=== PATIENT | male | born 1950 | race Caucasian/White ===

== ENCOUNTER → 2018-05-20 07:02 | Outpatient (CLI) | payer MEDICARE, SELFPAY ==
[2018-05-20 10:57] LABS: Absolute Lymphocyte Count 1.84 X10^3/ul (0.83-4.51); Absolute Neutrophil Count 4.6 X10^3/uL (2.0-7.7); Basophil# 0.08 X10^3/uL; Basophil% 1.1 % (0-1); Eosinophil# 0.46 X10^3/uL; Hematocrit 46.5 % (40-54); Hemoglobin 15.1 g/dl (13.0-16.5); Lymphocyte # 1.84 X10^3/ul (4.0); Lymphocyte % 24.2 % (19-41); Mean Corp Hgb Conc 32.5 g/gl (32-36); Mean Corpuscular Hgb 28.9 pg (27.0-32.0); Mean Corpuscular Volume 88.9 fL (80-94); Mean Platelet Vol. 10.2 fl (6.2-12.0); Monocyte# 0.59 X10^3/uL; Monocyte% 7.8 % (0-10); Neutrophil # 4.63 X10^3/uL (2.7-7.7); Neutrophil % 60.8 % (47-70); POSITIVE COUNT NO; POSITIVE DIFFERENTIAL NO; POSITIVE MORPHOLOGY NO; Platelet Count 295 K/mm3 (150-450); RBC Distribution Width CV 12.5 % (11.6-14.6); RBC Distribution Width SD 40.1 fl (35.1-43.9); Red Blood Count 5.23 M/mm3 (4.6-6.2); White Blood Count 7.6 K/mm3 (4.4-11.0)
[2018-05-20 11:08] LABS: Anion Gap 8 (5-15); BUN 21 mg/dL (7-18); BUN/Creat Ratio 17.9 RATIO (10-20); Chloride 105 mmol/L (98-107); Creatinine, Serum 1.17 mg/dL (0.70-1.30); EST Glomerular Filtration Rate 66 mL/min (>60); Est Glom Filt Rate - Afr Amer 80 mL/min (>60); Glucose 94 mg/dL (74-106); PSA,Total - Annual Screen 0.67 ng/mL (0.00-4.00); Sodium Level 141 mmol/L (136-145)
--- OUTSIDE RECORDS SUMMARY | 2018-07-06 02:24 | XMS RPT_ITS ---
:1950 Author Organization OHIP Care Team Providers Name Role Phone Michelet Chang Attending Unavailable Michelet Chang Referring Unavailable Michelet Chang Primary Care Unavailable PROBLEMS PROBLEMS DATE TYPE CONDITION / CODE ATTENDING STATUS SOURCE 06/18/2018 Unknown I10 - Essential Michelet Chang Active [facility] (primary) [facility] hypertension / Hospital I10(ICD-10) Repository PROCEDURES PROCEDURES No Procedure Records FoundRESULTS RESULTS CBC W/DIFF, AUTOMATED Collected: 05/20/2018 Status: F Source: ERICK 7:15 AM [facility] REPOSITORY Order Comment: Order Date: 11/24/17 Order Info: 0184-1 - CBCD TYPE CODE TESTS RESULT OUT OF RANGE REFERENCE UNITS LAB L100.1000 4.4-11.0 K/mm3 Normal WBC 7.6 LAB L100.1200 4.6-6.2 M/mm3 Normal RBC 5.23 LAB L100.1300 13.0-16.5 g/dl Normal HGB 15.1 LAB L100.1400 40-54 % Normal HCT 46.5 LAB L100.1500 80-94 fL Normal MCV 88.9 LAB L100.1600 27.0-32.0 pg Normal MCH 28.9 LAB L100.1700 32-36 g/gl Normal MCHC 32.5 LAB L100.1810 11.6-14.6 % Normal RDW CV 12.5 LAB L100.1820 35.1-43.9 fl Normal RDW SD 40.1 LAB L100.1900 150-450 K/mm3 Normal PLT 295 LAB L100.2000 6.2-12.0 fl Normal MPV 10.2 LAB L100.2100 47-70 % Normal NEUT% 60.8 LAB L100.2200 19-41 % Normal LY% 24.2 LAB L100.2300 0-10 % Normal MONO% 7.8 LAB L100.2400 0-5 % High EO% 6.0 LAB L100.2500 0-1 % High BASO% 1.1 LAB L100.2550 0.0-0.9 % Normal IM GRAN % 0.100 Result Comment: IG% - Immature Granulocytes (promyelocytes, myelocytes and metamyelocytes) > 1% indicates that a LEFT SHIFT is Present. LAB L100.2620 2.0-7.7 X10 3/uL Normal Absolute Neut 4.6 LAB L100.2720 0.83-4.51 X10 3/ul Normal Absolute Lymph 1.84 Performed By: #### L100.0100, L500.2500, L501.9910 #### [facility] [address] [place], [address] BASIC METABOLIC Collected: 05/20/2018 Status: F Source: ERICK PROFILE (BMP) 7:15 AM [facility] REPOSITORY Order Comment: Order Date: 11/24/17 Order Info: [id number] - BMP Order Info: 2857-1 - PSA TYPE CODE TESTS RESULT OUT OF RANGE REFERENCE UNITS LAB L501.0100 74-106 mg/dL Normal GLU 94 Result Comment: Please note revised GLUCOSE reference range effective 2017. LAB L501.1000 7-18 mg/dL High BUN 21 LAB L501.1100 0.70-1.30 mg/dL Normal CREAT,SERUM 1.17 Result Comment: The validity of the calculated GFR AND GFRAA in patients over 70 years has not been determined. Clinical correlation is essential. LAB L501.1110 >60 mL/min Normal EST GFR 66 Result Comment: Non- GFR Calc LAB L501.1115 >60 mL/min Normal EST GFR - AA 80 Result Comment: GFR Calc LAB L501.1300 10-20 RATIO Normal BUN/CRE 17.9 LAB L501.2200 8.5-10.1 mg/dL CA Normal 9.0 LAB L501.5300 136-145 mmol/L NA Normal 141 LAB L501.5600 3.5-5.1 mmol/L K Normal 4.0 LAB L501.5900 98-107 mmol/L CL Normal 105 LAB L501.6100 21.0-32.0 mmol/L Normal CO2 28.0 LAB L501.6200 5-15 Normal GAP 8 Performed By: #### L100.0100, L500.2500, L501.9910 #### [facility] [address] [place], [address] PSA,TOTAL - ANNUAL Collected: 05/20/2018 Status: F Source: ERICK SCREEN 7:15 AM [facility] REPOSITORY Order Comment: Order Date: 11/24/17 Order Info: [id number] - BMP Order Info: 2857-1 - PSA TYPE CODE TESTS RESULT OUT OF RANGE REFERENCE UNITS LAB L501.9910 0.00-4.00 ng/mL Normal PSA,TOT 0.67 SCREEN Result Comment: This test was performed using the TPSA assay method for the [employer] chemistry system. Values obtained with different assay methods cannot be used interchangably. When changing PSA assays in the course of monitoring a patient, additional sequential testing should be carried out to confirm baseline values. Performed By: #### L100.0100, L500.2500, L501.9910 #### [facility] [address] [place], [address] ALLERGIES ALLERGIES DATE TYPE / CODE NAME / CODE REACTION SEVERITY SOURCE 2016 Drug promethazin Anaphylaxis Unknown [facility] Allergy/4160 [id number] Hospital 06597(SNOMED 9(RXNORM) Repository CT) ENCOUNTERS ENCOUNTERS ADMIT/DISCHARGE ACCOUNT ADMITTING ENCOUNTER LOCATION SOURCE NUMBER CLASS 05/20/2018 [id number] Ambulatory [facility] 8 [facility] ing:MTLAB Repository PAYERS PAYERS ENCOUNTER GUARANTOR PAYER SUBSCRIBER SOURCE 05/20/2018 KRISTIN Drummond Primary KRISTIN Drummond Erick [id number] S Insurance:MEDICARE [facility] [id number] Number: Repository [id number]: [phone] [id number] [phone] () Date:2018-05-20 05/20/2018 Secondary NOT GIVENUNK Erick Insurance:SELF PAY [facility] Number: Effective Repository Date:2018-05-20
== END ==
PROVIDERS: Family Provider Family Medicine; PCP Family Medicine; Referring Provider Family Medicine; Visit Provider Family Medicine
DX: I10 Essential (primary) hypertension (principal); Z12.5 Encounter for screening for malignant neoplasm of prostate
CPT/HCPCS: 36415; 80048; 84153; 85025; G0103

== ENCOUNTER → 2020-01-13 07:28 | Outpatient (CLI) | payer MEDICARE, SELFPAY ==
[2016-03-08 18:17] VITALS: BMI 32.8
[2020-01-13 10:30] LABS: Cholesterol 172 mg/dL (200); High Density Lipoprotein 53 mg/dL; Triglycerides 182 mg/dL; Very Low Density Lipoprotein 36 mg/dL (5-40)
== END ==
PROVIDERS: PCP Family Medicine; Referring Provider Family Medicine; Visit Provider Family Medicine
DX: I10 Essential (primary) hypertension (principal)
CPT/HCPCS: 36415; 80061

== ENCOUNTER → 2020-01-18 09:25 | Outpatient (CLI) | payer MEDICARE, SELFPAY ==
[2016-03-08 18:17] VITALS: BMI 32.8
[2020-01-18 12:19] LABS: Absolute Lymphocyte Count 1.47 X10^3/uL (0.83-4.51); Absolute Neutrophil Count 4.7 X10^3/uL (2.0-7.7); Basophil% 1.4 % (0-1); Eosinophil# 0.17 X10^3/uL; Eosinophils% 2.3 % (0-5); Hematocrit 46.8 % (40-54); Hemoglobin 14.6 g/dL (13.0-16.5); Lymphocyte # 1.47 X10^3/ul (4.0); Lymphocyte % 20.1 % (19-41); Mean Corp Hgb Conc 31.2 g/dL (32-36); Mean Corpuscular Hgb 27.9 pg (27.0-32.0); Mean Corpuscular Volume 89.5 fL (80-94); Mean Platelet Vol. 11.4 fl (6.2-12.0); NRBC Flagged by Analyzer 0 % (0-5); Neutrophil # 4.74 X10^3/uL (2.7-7.7); Neutrophil % 64.9 % (47-70); Platelet Count 286 K/mm3 (150-450); RBC Distribution Width SD 42.9 fl (35.1-43.9); Red Blood Count 5.23 M/mm3 (4.6-6.2); White Blood Count 7.3 K/mm3 (4.4-11.0)
[2020-01-18 12:43] LABS: ALB/GLOB Ratio 0.9 RATIO (0.9-2.4); AST(SGOT) 20 U/L (15-37); Alanine Aminotransfer ALT/SGPT 28 U/L (16-61); Albumin, Serum 3.7 g/dL (3.2-5.0); Alkaline Phosphatase 72 U/L (45-117); Anion Gap 8 (5-15); BUN 23 mg/dL (7-18); BUN/Creat Ratio 20.9 RATIO (10-20); Calcium,Total 8.8 mg/dL (8.5-10.1); Chloride 104 mmol/L (98-107); EST Glomerular Filtration Rate 71 mL/min (>60); Est Glom Filt Rate - Afr Amer 86 mL/min (>60); Globulin 3.9 g/dL (2.2-4.2); Glucose 106 mg/dL (74-106); PSA,Total - Annual Screen 0.76 ng/mL (0.00-4.00); Potassium 3.8 mmol/L (3.5-5.1); Protein, Total 7.6 g/dL (6.4-8.2); Sodium Level 138 mmol/L (136-145)
== END ==
PROVIDERS: PCP Family Medicine; Visit Provider Family Medicine
DX: I10 Essential (primary) hypertension (principal); Z12.5 Encounter for screening for malignant neoplasm of prostate
CPT/HCPCS: 36415; 80053; 84153; 85025; G0103

== ENCOUNTER 2020-02-11 14:28 | Emergency (ER) | payer MEDICARE, SELFPAY ==
[2020-02-11] VITALS (9 sets, daily range): BP systolic 151–173; BP diastolic 90–127; PULSE 94–102; RESP 14–26; TEMP 36.4; O2SAT 95–99; BMI 31.6
--- NOTE | 2020-02-11 14:54 | RAD_ITS ---
STUDY: X-RAY - LEFT SHOULDER REASON FOR EXAM: Male, 69 years old. FALL, PAIN, DISLOCATION TECHNIQUE: 2 view(s) of the shoulder. COMPARISON: None. FINDINGS: Complete anterior dislocation of the left shoulder without acute fracture deformity. 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 Normal acromion. Normal humeral head and visualized proximal humerus. The soft tissue structures are unremarkable. Normal visualized pulmonary apex. RAD/Shoulder min 2 Views IMPRESSION: Complete anterior dislocation of the left glenohumeral joint without fracture deformity. Electronically Signed: Odalys Grimm MD at 16:07 EDT , Service support ,
--- NOTE | 2020-02-11 14:55 | ED.DCSUM_ITS ---
History of Present Illness Chief Complaint: Fall Informant: Patient Onset: Today Current Severity: Mild Maximum Severity: Moderate Narrative: Presents with left shoulder injury after a fall. Patient was standing on a [employer] tractor tire, 3 to 4 feet off the ground. When he went to step onto the ladder it tipped and patient fell onto his left shoulder. Patient presents with signs of left shoulder dislocation. He denies any prior shoulder injuries or surgeries. He is right-hand dominant. He denies paresthesias. Patient denies any other injury from his fall. He denies head or neck pain. No loss of consciousness. He is not on anticoagulants. - Past Medical History (1) Hypertension Status: Chronic Past Medical History - Allergies and Home Meds Allergies/Adverse Reactions: Allergies promethazine [From Phenergan] Allergy (Verified 02/11/20 14:36) Anaphylaxis Primary Care Physician: Michelet Heath MD [Primary Care Provider] - Prior records reviewed: Yes Lives: Spouse/ Significant Other Smoking Status: Never smoker Review of Systems General: Denies: Chills, Fever Eyes: Denies: Visual changes - bilaterally ENT: Denies: Bilateral ear pain Cardiovascular: Denies: Chest pain Respiratory: Denies: Dyspnea, Cough Gastrointestinal: Denies: Abdominal pain, Nausea, Vomiting, Diarrhea Musculoskeletal: Reports: Extremity Pain Neurological: Denies: Headache, Parasthesia Hematologic: Denies: Easy bruising, Easy bleeding Allergy: Denies: Uticaria Physical Exam Vital Signs/Narrative: Vital Signs Temp Pulse Resp BP Pulse Ox 02/11/20 14:37 95 02/11/20 14:29 97.5 F L 95 18 160/100 H 95 Inital Vital Signs reviewed: Yes General: Well nourished, Well developed Head: Normocephalic ENT: Moist mucous membranes Neck: Supple, - - No C-spine tenderness. Cardiovascular: Regular rate, Regular rhythm Respiratory: No distress, CTA bilaterally Abdomen: Soft, Nontender Extremities: - - Deformity at left shoulder consistent with shoulder dislocation. Strong distal pulses noted. Patient able to wiggle fingers. Skin: Normal color Neurological: Alert, Oriented x3 Psychological: Normal affect Diagnostic/Tx/Re-eval - Medical Decision Making Patient does have evidence of left shoulder dislocation on x-ray. Patient is consented for procedural sedation. He is placed on environmental monitoring technician and nasal cannula oxygen. 50 mL's of propofol were given IV. Patient received good sedation. Left shoulder was reduced with traction countertraction mechanism. Following reduction patient has good distal pulses and can wiggle fingers. Patient is placed in sling with Rob wrap. Repeat x-ray reveals good position of the proximal humerus. On repeat evaluation patient is awake, alert, and comfortable with discharge to home. He will be given a prescription for Percocet to use as needed for pain. He has seen [facility] in the past and will follow up with them. ED Disposition - Plan for ED Patient: Disposition: Home or Assisted Living Diagnosis: Dislocation of left shoulder joint Instructions: ED Dislocation Shoulder Redu Prescriptions: Oxycodone HCl/Acetaminophen [Percocet 5/325] 1 tablet PO Q6H PRN PRN 3 Days #12 tablet PRN Reason: Pain Transmission Status: Sent to [facility] Referrals: Terry Urias DO [STAFF PHYSICIAN] - 1 Week
[2020-02-11] MEDS: Ondansetron 4 MG/2 ML Vial IV (15:13)
[2020-02-11] MEDS: Morphine 4 MG/ML Syringe IV (15:14)
[2020-02-11] MEDS: Propofol 200 MG/20 ML Vial IV BOLUS (16:31)
--- NOTE | 2020-02-11 16:55 | RAD_ITS ---
STUDY: X-RAY - LEFT SHOULDER REASON FOR EXAM: Male, 69 years old. post reduction of shoulder dislocation TECHNIQUE: 2 view(s) of the shoulder. COMPARISON: Prior left shoulder radiographs of 02/11/2020 at 3:36 PM. FINDINGS: The left glenohumeral joint is reduced. 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 Normal acromion. Normal humeral head and visualized proximal humerus. The soft tissue structures are unremarkable. Normal visualized pulmonary apex. RAD/Shoulder min 2 Views IMPRESSION: Anatomic reduction of the left glenohumeral joint without fracture deformity. Electronically Signed: Odalys Grimm MD at 17:13 EDT , Service support ,
== END 2020-02-11 18:03 | disposition home or self-care (01) ==
PROVIDERS: Emergency Provider Emergency Medicine; PCP Family Medicine
DX: S43.005A Unspecified dislocation of left shoulder joint, initial encounter (principal); W19.XXXA Unspecified fall, initial encounter
CPT/HCPCS: 73030; 96374; 96375; 99152; 99285; J7030; A4216; J2405

== ENCOUNTER 2020-11-04 08:29 | Emergency (ER) | payer MEDICARE, SELFPAY ==
[2020-09-14 07:02] VITALS: BMI 31.6
[2020-11-04 08:29] VITALS: BP 198/122; PULSE 78; RESP 15; TEMP 36.3; O2SAT 97; BMI 32.2
--- NOTE | 2020-11-04 08:42 | EX.ED.DYSGE1 ---
HPI History of Present Illness Chief Complaint: Hypertension Detail of Chief Complaint: Elevated blood pressure for the last 2 days Informant: patient Narrative Narrative: Patient states that over the last 2 days has had elevated blood pressures with systolics in the 160s and 170s. Patient states that 2 days ago he had cataract surgery. Patient's systolic normally in the 130s to 140s. He called his primary care physician who told him to just monitor the blood pressures and if they worsen to come to the emergency department. Patient denies headache, chest pain, or shortness of breath. He denies recent illness. Patient had a recent negative Covid test and has been vaccinated against COVID-19. Patient has been on losartan 50 mg daily for many years. Prior similar symptoms: No PFSH PFSH Medical History (Updated 11/04/20 @ 10:[address] August Sheth, DO) Hypertension Home Medications losartan 50 mg PO DAILY 03/08/16 [History Last Taken 11/03/20] isosorbide mononitrate 30 mg PO DAILY #30 tab 11/04/20 [Rx Last Taken Unknown] Allergy/AdvReac Type Severity Reaction Status Date / Time promethazine [From Phenergan] Allergy Anaphylaxis Verified 11/04/20 08:30 Surgical History History of cholecystectomy History of repair of hiatal hernia Social History (Updated 09/14/20 @ 07:23 by Burton TOMLINSON, PA) Smoking Status: Never smoker ROS ROS ED Constitutional Constitutional ED: Reports systems reviewed and no addt'l complaints, except as documented; Denies body ache(s), change in weight or chills Eyes Eyes: Denies acute decrease in peripheral vision, change in vision, double vision or loss of vision ENT ENT ED: Reports none; Denies ear pain, lip swelling, loss taste/smell, neck pain, otalgia or sore throat Cardiovascular Cardiovascular: Reports none; Denies abdominal pain, chest pain with activity, leg edema, lightheadedness, palpitations, rapid heart rate or syncope Respiratory/Chest Respiratory/Chest: Reports none; Denies change in mental status, dry cough, dyspnea, hemoptysis, shortness of breath at rest or shortness of breath with exertion Gastrointestinal Gastrointestinal: Reports none; Denies abdominal pain, change in stool character, diarrhea, hematemesis, hematochezia, melena, rectal bleeding or vomiting Genitourinary Genitourinary ED: Reports none; Denies abdominal discomfort, anuria, dysuria, genital pain or polyuria Musculoskeletal Musculoskeletal: Reports none; Denies arthralgias, back pain, difficulty walking, extremity pain, muscle weakness or myalgias Integumentary Reports none; Denies abscess or rash Neurologic Neurologic: Reports none; Denies abnormal gait, confusion, focal weakness, frequent falls, headache(s), loss of vision, numbness, paresthesias, radicular pain, vertigo or weakness Psychiatric Psychiatric: Reports systems reviewed and no addt'l complaints, except as documented and none; Denies behavioral changes, confusion, difficulty concentrating, hallucinations, suicidal ideation, tactile hallucinations or visual hallucinations Endocrine Endocrinology: Denies none, cold intolerance, excessive sweating, fatigue or heat intolerance Hematologic/Lymphatic Hematologic/Lymphatic: Reports none; Denies anemia, easy bleeding or easy bruising Allergic/Immunologic Allergic/Immunologic ED: Denies as per HPI, none, lip swelling, mouth swelling, throat swelling, tongue swelling or hives EXAM Physical Exam Const Vital Signs: 11/04/20 08:29 11/04/20 08:47 Temperature 97.4 F L Temperature Source Temporal Pulse Rate 78 84 Respiratory Rate 15 17 Respiratory Effort Normal Non-Labored Respiratory Pattern Normal Blood Pressure 198/122 H 198/111 H Blood Pressure Mean 147 140 Pulse Ox 97 Oxygen Delivery Method Room Air Room Air Positive well nourished and well developed General Appearance ED: well developed and NAD HEENT Reports TM's clear and moist mucous membranes normocephalic and atraumatic; Negative for trauma or tenderness Tympanic Membrane ED: Yes TM's clear Eyes PERRL and EOMs intact bilaterally General Eye ED: Negative for pale conjunctiva or scleral icterus Neck no lymphadenopathy, supple and no JVD General: Negative for tenderness Chest Wall inspection of chest normal and palpation of chest normal Chest: Negative for tenderness Resp normal respiratory effort and clear to auscultation bilaterally Effort and Inspection: Negative for respiratory distress or pain with movement Auscultation: Negative for rhonchi, wheezes or diminished lung sounds Cardio regular rate, regular rhythm, S1 normal heart sound, S2 normal heart sound and no murmurs Peripheral Pulses: pulses 2+ throughout GI normal to inspection, nondistended, normoactive bowel sounds, soft to palpation, non-tender, non-distended and no masses Back/Spine no CVA tenderness and no thoracic nor lumbar tenderness Extremity normal to inspection General Extremety ED: Negative for edema General Extremity: Negative for edema Neuro oriented x3, CN's II-XII intact bilaterally, no sensory deficits noted and gait normal Sensorium / Orientation: awake, alert, oriented to person, oriented to place and oriented to time Motor Exam: strength 5/5 throughout and strength abnormal Psych mental status grossly normal Skin no rashes or lesions noted and no wounds MDM MDM Lab Data Labs: Laboratory Results - last 24 hr 11/04/20 11/04/20 08:44 08:44 WBC 7.4 RBC 5.38 Hgb 15.2 Hct 47.6 MCV 88.5 MCH 28.3 MCHC 31.9 L RDW Std Deviation 42.0 RDW Coeff of Zoila 13.0 Plt Count 302 MPV 9.6 Immature Gran % (Auto) 0.300 Neut % (Auto) 63.2 Lymph % (Auto) 23.2 [place] % (Auto) 9.7 Eos % (Auto) 2.4 Baso % (Auto) 1.2 H Absolute Neuts (auto) 4.7 Absolute Lymphs (auto) 1.72 Nucleated RBC % 0 Sodium 139 Potassium 4.2 Chloride 106 Carbon Dioxide 29.0 Anion Gap 4 L BUN 20 H Creatinine 1.14 Estim Creat Clear Calc 64.04 Est GFR (MDRD) Af Amer 82 Est GFR (MDRD) Non-Af 68 BUN/Creatinine Ratio 17.5 Glucose 117 H Calcium 8.9 Troponin I < 0.015 Radiography Diagnostic Testing: Radiology Impression Chest X-Ray 11/04/20 08:50 IMPRESSION: No active pulmonary disease. Electronically Signed: Jorge Taylor MD at 9:09 EDT Tel , Service support , 1 view chest x-ray obtained showed no evidence of acute disease process as interpreted by myself. EKG Initial EKG: Comments: Sinus rhythm with a ventricular rate of 78 bpm with a right bundle branch block and minimal criteria for LVH. Discharge Plan Triage Chief Complaint: Hypertension ED Provider: August Sheth Dx/Rx/DC Orders Clinical Impression: Hypertension Instructions: ED Hypertension, Established Prescriptions: New isosorbide mononitrate 30 mg tablet extended release 24 hr 30 mg PO DAILY Qty: 30 RF: 0 No Action losartan 50 MG tablet 50 mg PO DAILY RF: 0 Primary Care Provider: Michelet Heath Referrals: Michelet Heath MD [Primary Care Provider] - 3-5 Days Disposition Disposition: Home, self care
[2020-11-04 08:47] VITALS: BP 198/111; PULSE 84; RESP 17
--- NOTE | 2020-11-04 08:50 | RAD_ITS ---
STUDY: X-RAY CHEST REASON FOR EXAM: Male, 70 years old. Hypertension TECHNIQUE: Single AP portable view of the chest. COMPARISON: Prior comparison studies are not available for review at this time. FINDINGS: The lungs are clear and expanded. There is no demonstrated pleural abnormality. There is borderline cardiomegaly. Normal mediastinum and hector. Normal visualized pulmonary arteries. There is atherosclerotic tortuosity of the aortic arch and descending thoracic aorta. No demonstrated acute osseous changes. There is no demonstrated abnormality of the visualized soft tissue structures of the upper abdomen. RAD/Chest 1 View (Portable) IMPRESSION: No active pulmonary disease. Electronically Signed: Jorge Taylor MD at 9:09 EDT Tel , Service support ,
[2020-11-04 08:57] LABS: Absolute Lymphocyte Count 1.72 X10^3/uL (0.83-4.51); Absolute Neutrophil Count 4.7 X10^3/uL (2.0-7.7); Basophil# 0.09 X10^3/uL; Basophil% 1.2 % (0-1); Eosinophil# 0.18 X10^3/uL; Eosinophils% 2.4 % (0-5); Hematocrit 47.6 % (40-54); Hemoglobin 15.2 g/dL (13.0-16.5); Lymphocyte # 1.72 X10^3/ul (0.83-4.51); Lymphocyte % 23.2 % (19-41); Mean Corp Hgb Conc 31.9 g/dL (32-36); Mean Corpuscular Hgb 28.3 pg (27.0-32.0); Mean Corpuscular Volume 88.5 fL (80-94); Mean Platelet Vol. 9.6 fl (6.2-12.0); Monocyte# 0.72 X10^3/uL; Monocyte% 9.7 % (0-10); NRBC Flagged by Analyzer 0 % (0-5); Neutrophil # 4.67 X10^3/uL (2.7-7.7); Neutrophil % 63.2 % (47-70); Platelet Count 302 K/mm3 (150-450); Red Blood Count 5.38 M/mm3 (4.6-6.2); White Blood Count 7.4 K/mm3 (4.4-11.0)
[2020-11-04] MEDS: hydrALAZINE 20 MG/ML Vial 5 MG IV (09:13)
[2020-11-04 09:17] LABS: Anion Gap 4 (5-15); BUN 20 mg/dL (7-18); BUN/Creat Ratio 17.5 RATIO (10-20); Calcium,Total 8.9 mg/dL (8.5-10.1); Chloride 106 mmol/L (98-107); Creatinine, Serum 1.14 mg/dL (0.70-1.30); EST Glomerular Filtration Rate 68 mL/min (>60); Est Glom Filt Rate - Afr Amer 82 mL/min (>60); Estimated Creatinine Clearance 64.04 ml/min; Glucose 117 mg/dL (74-106); Potassium 4.2 mmol/L (3.5-5.1); Sodium Level 139 mmol/L (136-145)
--- NOTE | 2020-11-04 10:03 | EKG12_ITS ---
Test Reason : Blood Pressure : / mmHG Vent. Rate : 078 BPM Atrial Rate : 078 BPM P-R Int : 172 ms QRS Dur : 144 ms QT Int : 418 ms P-R-T Axes : 007 -15 -12 degrees QTc Int : 476 ms Normal sinus rhythm Right bundle branch block Minimal voltage criteria for LVH, may be normal variant Abnormal ECG Confirmed by PHILLY SANTOS, MIGUEL ([id number]), publishing editor KEERTHI NIX ([id number]) on 11/07/2020 1:46:09 PM Referred By: MARTA Confirmed By:MIGUEL FRAGA MD
[2020-11-04 10:33] VITALS: BP 185/106; PULSE 82; RESP 17; O2SAT 99
== END 2020-11-04 10:34 | disposition home or self-care (01) ==
PROVIDERS: Emergency Provider Emergency Medicine; PCP Family Medicine
DX: I10 Essential (primary) hypertension (principal); Z79.899 Other long term (current) drug therapy
CPT/HCPCS: 71045; 80048; 84484; 85025; 93005; 99284; A4216

== ENCOUNTER → 2021-01-08 07:08 | Outpatient (CLI) | payer MEDICARE, SELFPAY ==
[2021-01-08 10:37] LABS: ALB/GLOB Ratio 0.9 RATIO (0.9-2.4); AST(SGOT) 27 U/L (15-37); Alanine Aminotransfer ALT/SGPT 35 U/L (16-61); Albumin, Serum 3.5 g/dL (3.2-5.0); Alkaline Phosphatase 77 U/L (45-117); Anion Gap 7 (5-15); BUN 21 mg/dL (7-18); BUN/Creat Ratio 18.9 RATIO (10-20); Calcium,Total 8.9 mg/dL (8.5-10.1); Chloride 106 mmol/L (98-107); Cholesterol 169 mg/dL (200); Creatinine, Serum 1.11 mg/dL (0.70-1.30); EST Glomerular Filtration Rate 70 mL/min (>60); Est Glom Filt Rate - Afr Amer 85 mL/min (>60); Globulin 3.9 g/dL (2.2-4.2); Glucose 116 mg/dL (74-106); High Density Lipoprotein 58 mg/dL; Potassium 3.9 mmol/L (3.5-5.1); Protein, Total 7.4 g/dL (6.4-8.2); Sodium Level 138 mmol/L (136-145); Triglycerides 160 mg/dL; Very Low Density Lipoprotein 32 mg/dL (5-40)
== END ==
PROVIDERS: PCP Family Medicine; Referring Provider Family Medicine; Visit Provider Family Medicine
DX: E78.5 Hyperlipidemia, unspecified (principal); Z12.5 Encounter for screening for malignant neoplasm of prostate
CPT/HCPCS: 36415; 80053; 80061

== ENCOUNTER → 2021-02-06 08:32 | Outpatient (CLI) | payer MEDICARE, SELFPAY ==
[2021-02-06 10:40] LABS: PSA,Total - Annual Screen 0.82 ng/mL (0.00-4.00)
[2021-02-06 10:42] LABS: Hemoglobin A1c 5.9 % (3.8-5.6)
== END ==
PROVIDERS: PCP Family Medicine; Referring Provider Family Medicine; Visit Provider Family Medicine
DX: R73.01 Impaired fasting glucose (principal); Z12.5 Encounter for screening for malignant neoplasm of prostate
CPT/HCPCS: 36415; 83036; 84153; G0103

== ENCOUNTER 2021-04-16 06:32 | Inpatient (IN) | payer MEDICARE, SELFPAY ==
[2021-04-16] VITALS (28 sets, daily range): BP systolic 85–145; BP diastolic 58–94; PULSE 87–112; RESP 15–25; TEMP 36.2–36.9; O2SAT 93–98; BMI 33.4; BMI 33.3
--- NOTE | 2021-04-16 06:40 | EKG12_ITS ---
Test Reason : Blood Pressure : / mmHG Vent. Rate : 087 BPM Atrial Rate : 087 BPM P-R Int : 146 ms QRS Dur : 136 ms QT Int : 386 ms P-R-T Axes : 012 -22 -15 degrees QTc Int : 464 ms Normal sinus rhythm Right bundle branch block Abnormal ECG Confirmed by DESHAUN SANTOS, CLAUDIA ([id number]), department editor KEERTHI NIX ([id number]) on 04/18/2021 9:08:55 AM Referred By: EDDIE Confirmed By:CLAUDIA MEADE MD
--- NOTE | 2021-04-16 06:42 | ED.VIS.GI ---
HPI HPI - GI History of Present Illness Chief Complaint: GI Bleed Informant: patient and spouse/S.O. Nausea/Vomiting/Emesis GI Symptom: Positive for Nausea and Vomiting Quality: Positive for Hematemesis Narrative Narrative: Patient is a 71-year-old male with history of bleeding stomach ulcers and hiatal hernia status post Sam fundoplication presenting with abdominal discomfort, nausea and hematemesis. Patient started having upset stomach yesterday evening. He did not sleep well throughout the night. Around 5 AM he started vomiting blood. Patient reports feeling lightheaded. He denies any chest pain or difficulty breathing. He denies any abdominal pain. He was hypotensive for EMS and they reported large volume hematemesis at the scene. Patient is on any blood thinners. He denies taking a daily aspirin or significant ibuprofen use. [facility] Medical History Hypertension Kidney stones Home Medications losartan-hydrochlorothiazide 1 tab PO DAILY 04/16/21 [History Last Taken Unknown] Allergy/AdvReac Type Severity Reaction Status Date / Time promethazine [From Phenergan] Allergy Anaphylaxis Verified 11/04/20 08:30 Surgical History History of cholecystectomy History of repair of hiatal hernia Social History Smoking Status: Never smoker ROS ROS ED Constitutional Constitutional ED: Denies chills or fever(s) Eyes Eyes: Denies blurry vision or loss of vision ENT ENT ED: Denies rhinorrhea or sore throat Cardiovascular Cardiovascular: Denies chest pain or dizziness Respiratory/Chest Respiratory/Chest: Denies cough or dyspnea Gastrointestinal Gastrointestinal: Reports diarrhea, hematemesis, nausea and vomiting; Denies abdominal pain, hematochezia or melena Genitourinary Genitourinary ED: Denies dysuria or hematuria Musculoskeletal Musculoskeletal: Denies arthralgias or myalgias Integumentary Denies rash or wounds Neurologic Neurologic: Denies focal weakness or headache(s) Psychiatric Psychiatric: Denies anxiety or behavioral changes EXAM Physical Exam Const Vital Signs: 04/16/21 06:33 Temperature 97.2 F L Temperature Source Temporal Pulse Rate 97 Respiratory Rate 22 H Blood Pressure 105/69 Blood Pressure Mean 81 Pulse Ox 94 Oxygen Delivery Method Room Air Positive well nourished and well developed General Appearance ED: well developed and pallor HEENT Reports moist mucous membranes HEENT Narrative: Black discoloration to the tongue normocephalic and atraumatic Eyes PERRL and EOMs intact bilaterally General Eye ED: Yes pale conjunctiva Neck no lymphadenopathy and supple Resp normal respiratory effort and clear to auscultation bilaterally Cardio regular rate, regular rhythm and no murmurs GI non-tender and non-distended Auscultation: normoactive bowel sounds Palpation: soft; Negative for pulsatile mass Extremity full ROM General Extremety ED: Negative for edema or tenderness General Extremity: Negative for edema Neuro Sensorium / Orientation: alert, oriented to person, oriented to place and oriented to time Motor Exam: general weakness Psych mental status grossly normal Skin General Skin Exam: pallor Lesions: no lesions Rashes: no rashes MDM MDM MDM Narrative Medical decision making narrative: Patient is evaluated for low blood pressure and hematemesis. On arrival patient is diaphoretic, pale and hypotensive. I suspect he has an acute GI bleed given the history. EMS showed me a picture of his hematemesis which appears to be at least 2 cups. Patient is anemic with a hemoglobin 11.9. Chart review shows his baseline is closer to 15. In addition he has elevated lactate of 3.9. Patient is given 2 L of IV fluid with improvement of his symptoms as well as his blood pressure. He is given IV Protonix bolus and type and cross for 2 units of blood. 1 unit is ordered in the emergency room is suspect he does have an acute bleed. Discussed with JOSTIN Gay on-call, who will evaluate him in the hospital. Patient admitted to the ICU. Patient agreeable to this plan of care. Lab Data Labs: Laboratory Results - last 24 hr 04/16/21 04/16/21 04/16/21 06:40 06:40 06:40 WBC 13.5 H RBC 4.17 L Hgb 11.9 L Hct 37.6 L MCV 90.2 MCH 28.5 MCHC 31.6 L RDW Std Deviation 42.7 RDW Coeff of Zoila 12.9 Plt Count 304 MPV 10.4 Immature Gran % (Auto) 0.400 Neut % (Auto) 77.8 H Lymph % (Auto) 17.2 L [place] % (Auto) 4.0 Eos % (Auto) 0.1 Baso % (Auto) 0.5 Absolute Neuts (auto) 10.5 H Absolute Lymphs (auto) 2.31 Nucleated RBC % 0 Sodium 137 Potassium 4.7 Chloride 108 H Carbon Dioxide 23.0 Anion Gap 6 BUN 48 H Creatinine 1.24 Estim Creat Clear Calc 59.88 Est GFR (MDRD) Af Amer 74 Est GFR (MDRD) Non-Af 61 BUN/Creatinine Ratio 38.7 H Glucose 223 H Lactic Acid 3.9 H* Calcium 8.8 Total Bilirubin 0.70 AST 20 ALT 32 Alkaline Phosphatase 65 Troponin I High Sens 6 Total Protein 6.3 L Albumin 2.8 L Globulin 3.5 Albumin/Globulin Ratio 0.8 L Lipase 646 H Crossmatch 04/16/21 06:40 WBC RBC Hgb Hct MCV MCH MCHC RDW Std Deviation RDW Coeff of Zoila Plt Count MPV Immature Gran % (Auto) Neut % (Auto) Lymph % (Auto) [place] % (Auto) Eos % (Auto) Baso % (Auto) Absolute Neuts (auto) Absolute Lymphs (auto) Nucleated RBC % Sodium Potassium Chloride Carbon Dioxide Anion Gap BUN Creatinine Estim Creat Clear Calc Est GFR (MDRD) Af Amer Est GFR (MDRD) Non-Af BUN/Creatinine Ratio Glucose Lactic Acid Calcium Total Bilirubin AST ALT Alkaline Phosphatase Troponin I High Sens Total Protein Albumin Globulin Albumin/Globulin Ratio Lipase Crossmatch See Detail Rhythm Strip Rhythm Strip: Sinus Rhythm Rate: 87 Ectopy: None EKG Initial EKG: Attestation: I personally reviewed and interpreted this EKG as follows: Interpretation: Sinus Rhythm Comments: Normal sinus rhythm at a rate of 87 Left axis deviation Normal intervals Right bundle branch block Normal ST segments Critical Care Time Critical Care Time: Yes Critical care time (excluding procedures): 30-74 minutes (42), Discussing w/Patient &/or Family/Material Stress Tester, Discussing w/Consultants and Arranging Admission or Transfer Discharge Plan Triage Chief Complaint: GI Bleed ED Provider: Yeimy Bernstein Dx/Rx/DC Orders Clinical Impression: Acute gastrointestinal bleeding, Hemorrhagic shock Primary Care Provider: Micheelt Trotter Disposition Disposition: [facility]
[2021-04-16] MEDS: 0.9% Normal Saline 1,000 ML 1000 ML IV (06:43)
[2021-04-16] MEDS: Ondansetron 4 MG/2 ML Vial IV (06:46)
[2021-04-16 06:54] LABS: Absolute Lymphocyte Count 2.31 X10^3/uL (0.83-4.51); Absolute Neutrophil Count 10.5 X10^3/uL (2.0-7.7); Basophil# 0.07 X10^3/uL; Basophil% 0.5 % (0-1); Eosinophil# 0.02 X10^3/uL; Eosinophils% 0.1 % (0-5); Hematocrit 37.6 % (40-54); Hemoglobin 11.9 g/dL (13.0-16.5); Lymphocyte # 2.31 X10^3/ul (0.83-4.51); Lymphocyte % 17.2 % (19-41); Mean Corp Hgb Conc 31.6 g/dL (32-36); Mean Corpuscular Hgb 28.5 pg (27.0-32.0); Mean Corpuscular Volume 90.2 fL (80-94); Mean Platelet Vol. 10.4 fl (6.2-12.0); Monocyte# 0.54 X10^3/uL; NRBC Flagged by Analyzer 0 % (0-5); Neutrophil # 10.45 X10^3/uL (2.7-7.7); Neutrophil % 77.8 % (47-70); Platelet Count 304 K/mm3 (150-450); RBC Distribution Width CV 12.9 % (11.6-14.6); RBC Distribution Width SD 42.7 fl (35.1-43.9); Red Blood Count 4.17 M/mm3 (4.6-6.2); White Blood Count 13.5 K/mm3 (4.4-11.0)
[2021-04-16 07:17] LABS: ALB/GLOB Ratio 0.8 RATIO (0.9-2.4); AST(SGOT) 20 U/L (15-37); Alanine Aminotransfer ALT/SGPT 32 U/L (16-61); Albumin, Serum 2.8 g/dL (3.2-5.0); Alkaline Phosphatase 65 U/L (45-117); Anion Gap 6 (5-15); BUN 48 mg/dL (7-18); BUN/Creat Ratio 38.7 RATIO (10-20); Calcium,Total 8.8 mg/dL (8.5-10.1); Chloride 108 mmol/L (98-107); Creatinine, Serum 1.24 mg/dL (0.70-1.30); EST Glomerular Filtration Rate 61 mL/min (>60); Est Glom Filt Rate - Afr Amer 74 mL/min (>60); Estimated Creatinine Clearance 59.88 ml/min; Globulin 3.5 g/dL (2.2-4.2); Glucose 223 mg/dL (74-106); Lipase 646 U/L (73-393); Potassium 4.7 mmol/L (3.5-5.1); Protein, Total 6.3 g/dL (6.4-8.2); Sodium Level 137 mmol/L (136-145); Troponin-I HS 6 pg/mL (3.0-78.0)
[2021-04-16 07:24] LABS: Lactic Acid 3.9 mmol/L (0.4-1.9)
--- NOTE | 2021-04-16 08:13 | NURSING ---
ICU [facility] GI BLEED
--- NOTE | 2021-04-16 08:14 | NURSING ---
ICU 5
[2021-04-16] MEDS: Lactated Ringers 1,000 ML 75 ML IV ×2 (09:42→13:36)
[2021-04-16 09:52] LABS: Hematocrit 35.3 % (40-54)
[2021-04-16 10:48] LABS: Reflex Lactate? Y
[2021-04-16 11:44] LABS: Lactic Acid 2.4 mmol/L (0.4-1.9)
--- NOTE | 2021-04-16 12:10 | EX.PCM.CON.G ---
HPI Consult Data Date of Consult: 04/16/21 HPI Narrative HPI Narrative: KRISTIN LARA, is a 71 M who presents to the ED with worsening abdominal pain and hematemesis. He has a remote history of bleeding gastric ulcers thought to be secondary to NSAIDs. He also has a history of a large hiatal hernia status post Sam fundoplication. He presents with acute onset of abdominal discomfort, nausea and hematemesis. Patient started having upset stomach yesterday evening, but he thought it would go away. He did not sleep well throughout the night. At around 5 AM he started vomiting bright red blood. Patient reports feeling lightheaded. He denies any chest pain or difficulty breathing. He denies any abdominal pain. He was hypotensive for EMS and they reported large volume hematemesis at the scene. Patient is on any blood thinners. He denies taking a daily aspirin or significant ibuprofen use. He has no history of liver disease, thrombocytopenia or bleeding disorders. [facility] Medical History Hypertension Kidney stones Home Medications losartan-hydrochlorothiazide 1 tab PO DAILY 04/16/21 [History Last Taken Unknown] Allergy/AdvReac Type Severity Reaction Status Date / Time promethazine [From Phenergan] Allergy Anaphylaxis Verified 11/04/20 08:30 Surgical History History of cholecystectomy History of repair of hiatal hernia Social History Smoking Status: Never smoker ROS Review of Systems ROS Unobtainable: other Constitutional Constitutional: Denies fatigue, fever(s), poor appetite, weight gain or weight loss ENT HEENT: Denies mouth lesions Cardiovascular Cardiovascular: Denies abdominal bloating, abdominal edema or abdominal pain Respiratory/Chest Respiratory/Chest: Denies change in mental status, change in phlegm color, chest congestion or chest tightness Gastrointestinal Gastrointestinal: Denies belching, bloating, change in bowel habits, change in stool character, chewing difficulty, coffee ground emesis, constipation, cramping, diarrhea, dyspepsia, dysphagia, early satiety, excessive flatus, fecal incontinence, heartburn, hematemesis, hematochezia, hemorrhoids, loose stools, melena, nausea, odynophagia, rectal bleeding, tenesmus, vomiting or weight changes Genitourinary Genitourinary: Denies abdominal discomfort, burning urination or itching Musculoskeletal Musculoskeletal: Reports as per HPI; Denies muscle weakness or myalgias Integumentary Integumentary: Denies jaundice Neurologic Neurologic: Denies lack of coordination or weakness Psychiatric Psychiatric: Denies confusion, depression, memory loss, mood swings, paranoia or suicidal ideation Endocrine Endocrinology: Denies systems reviewed and no addt'l complaints, except as documented Hematologic/Lymphatic Hematologic/Lymphatic: Denies anemia, easy bleeding, easy bruising or lymphadenopathy Allergic/Immunologic Allergic/Immunologic: Denies systems reviewed and no addt'l complaints, except as documented Physical Exam Const alert General Appearance: cooperative Orientation / Consciousness: oriented to person HEENT hearing grossly normal bilaterally Head and Scalp: normal to inspection Face and Sinus: face symmetric Nose: external nose normal Mouth: oral and palatal mucosa normal Eyes conjunctivae normal General Eye: normal appearance of both eyes Neck full ROM General: normal visual inspection Lymph Lymphatic: no lymphadenopathy noted Chest inspection of chest normal and palpation of chest normal Chest: symmetrical chest wall rise Resp normal respiratory effort Effort and Inspection: able to speak in complete sentences Cardio regular rate GI non-distended Percussion: normal to percussion Rectal Exam: deferred Neuro Speech: speech normal Gait (Neuro): normal gait Lab / Micro Data Result Diagrams: 04/16/21 09:40 04/16/21 06:40 Labs: Laboratory Results - last 24 hr 04/16/21 06:40: WBC 13.5 H, RBC 4.17 L, Hgb 11.9 L, Hct 37.6 L, MCV 90.2, MCH 28.5, MCHC 31.6 L, RDW Std Deviation 42.7, RDW Coeff of Zoila 12.9, Plt Count 304, MPV 10.4, Immature Gran % (Auto) 0.400, Neut % (Auto) 77.8 H, Lymph % (Auto) 17.2 L, [place] % (Auto) 4.0, Eos % (Auto) 0.1, Baso % (Auto) 0.5, Absolute Neuts (auto) 10.5 H, Absolute Lymphs (auto) 2.31, Nucleated RBC % 0 04/16/21 06:40: Sodium 137, Potassium 4.7, Chloride 108 H, Carbon Dioxide 23.0, Anion Gap 6, BUN 48 H, Creatinine 1.24, Estim Creat Clear Calc 59.88, Est GFR (MDRD) Af Amer 74, Est GFR (MDRD) Non-Af 61, BUN/Creatinine Ratio 38.7 H, Glucose 223 H, Calcium 8.8, Total Bilirubin 0.70, AST 20, ALT 32, Alkaline Phosphatase 65, Troponin I High Sens 6, Total Protein 6.3 L, Albumin 2.8 L, Globulin 3.5, Albumin/Globulin Ratio 0.8 L, Lipase 646 H 04/16/21 06:40: Lactic Acid 3.9 H* 04/16/21 06:40: Blood Type A POSITIVE, Antibody Screen NEGATIVE, Crossmatch See Detail 04/16/21 09:40: Hgb 11.0 L, Hct 35.3 L 04/16/21 11:00: Lactic Acid 2.4 H* Micro: Microbiology 04/16/21 06:50 Stool Stool Occult Blood (CHEO) - Final Occult Blood Positive Rhythm Strip Rhythm Strip: Sinus Rhythm Rate: 87 Ectopy: None Assessment & Plan Assessment/Plan (1) Acute gastrointestinal bleeding: PLAN: 71-year-old with upper GI bleed. Differential diagnosis does include a dehiscence of his previous Sam fundoplication, Iman-Cm tear, gastric ulcer, peptic ulcer disease, AVM. He will undergo upper endoscopy. He was explained alternatives, risk, benefits including not withstanding bleeding, infection, sepsis, perforation, need for emergency or . He will have an ASA 1. Charges/Coding Visit Charges Inpatient E&M: 36718 Init Hosp L2
--- NOTE | 2021-04-16 12:44 | OP.EGD_ITS ---
Patient Name: Alek Blanchard Procedure Date: 04/16/2021 12:13 PM Date of : 1950 Age: 71 Procedure: Upper GI endoscopy Indications: Coffee-ground emesis Providers: Burt Vaughn DO Medicines: Propofol per Anesthesia Patient Profile: This is a 71 year old male. Refer to note in patient chart for documentation of history and physical. Patient has symptoms of acute vomiting. The symptoms first began ,. He is status post EGD for treatment of bleeding in the distant past. Complications: No immediate complications. Procedure: Pre-Anesthesia Assessment: - Prior to the procedure, a History and Physical was performed, and patient medications and allergies were reviewed. The patient is competent. The risks and benefits of the procedure and the sedation options and risks were discussed with the patient. All questions were answered and informed consent was obtained. Patient identification and proposed procedure were verified by the physician in the pre-procedure area. Mental Status Examination: alert and oriented. Airway Examination: normal oropharyngeal airway and neck mobility. Respiratory Examination: clear to auscultation. CV Examination: normal. Prophylactic Antibiotics: The patient does not require prophylactic antibiotics. Prior Anticoagulants: The patient has taken no previous anticoagulant or antiplatelet agents. ASA Grade Assessment: II - A patient with mild systemic disease. After reviewing the risks and benefits, the patient was deemed in satisfactory condition to undergo the procedure. The anesthesia plan was to use moderate sedation / analgesia (conscious sedation). Immediately prior to administration of medications, the patient was re-assessed for adequacy to receive sedatives. The heart rate, respiratory rate, oxygen saturations, blood pressure, adequacy of pulmonary ventilation, and response to care were monitored throughout the procedure. The physical status of the patient was re-assessed after the procedure. After obtaining informed consent, the endoscope was passed under direct vision. Throughout the procedure, the patient's blood pressure, pulse, and oxygen saturations were monitored continuously. The gastroscope was introduced through the mouth, and advanced to the second part of duodenum. The upper GI endoscopy was accomplished without difficulty. The patient tolerated the procedure well. Moderate Sedation: Moderate (conscious) sedation was administered by the endoscopy nurse and supervised by the endoscopist. The patient's oxygen saturation, heart rate, blood pressure and response to care were monitored. Total physician intraservice time was 15 minutes. Scope In: 12:28:01 PM Scope Out: 12:34:19 PM Total Procedure Duration Time 0 hours 6 minutes 18 seconds Findings: Hematin (altered blood/nryevp-rfiuxq-idmz material) was found in the lower third of the esophagus. A large hiatal hernia was present. Hematin (altered blood/bicqxq-puajns-gsqo material) was found in the stomach. The second portion of the duodenum was normal. Impression: - Hematin (altered blood/egpzlt-ieahro-bevm material) in the lower third of the esophagus. - Large hiatal hernia. - Hematin (altered blood/ufszwj-qqsdxz-cexz material) in the stomach. - Normal second portion of the duodenum. - No specimens collected. Recommendation: - Return patient to [facility] for ongoing care. - Continue present medications. Procedure Code(s): --- Professional --- 84303, Esophagogastroduodenoscopy, flexible, transoral; diagnostic, including collection of specimen(s) by brushing or washing, when performed (separate procedure) G0500, Moderate sedation services provided by the same physician or other qualified health resident care associate performing a gastrointestinal endoscopic service that sedation supports, requiring the presence of an independent trained observer to assist in the monitoring of the patient's level of consciousness and physiological status; initial 15 minutes of intra-service time; patient age 5 years or older (additional time may be reported with 12133, as appropriate) CPT copyright 2017 [employer]. All rights reserved. The codes documented in this report are preliminary and upon certified personal finance counselor review may be revised to meet current compliance requirements. Burt Vaughn DO 04/16/2021 12:44:06 PM This report has been signed electronically. Number of Addenda: 1 Note Initiated On: 04/16/2021 12:13 PM Addendum Number: 1 Addendum Date: 02/08/2022 6:19:13 AM MAC was used instead of moderate sedation for this patient. Burt Vaughn DO 02/08/2022 6:19:18 AM This report has been signed electronically.
[2021-04-16 13:37] LABS: Hematocrit 30.9 % (40-54); Hemoglobin 9.8 g/dL (13.0-16.5)
--- NOTE | 2021-04-16 14:34 | HP.PCM.HOS_ITS ---
HPI - General General Date of Admission: 04/16/21 Date of Service: 04/16/21 Chief Complaint: Hematemesis HPI Narrative KRISTIN LARA, is a 71 M who presented to the emergency department at [facility] with a chief complaint of hematemesis. The patient was feeling well up until 1130 last evening when he started to not feel well in general. He fell asleep and woke up at 2 AM and was not feeling well and went out to try to sleep on the couch although he stated that he did not sleep well at all. At approximately 530 this morning he started vomiting blood and the reports it was a decent amount. The patient reports that he has a history of GI bleeds up until 11 years ago when he had a Sam fundoplication done and has had none since. He denies any use of aspirin or any other NSAIDs. He takes no medications other than losartan/HCTZ. He had no further vomiting to her presentation to the emergency department and is feeling improved since he is had a liter of fluids. He was noted to be afebrile but mildly tachycardic and his blood pressures were on the low normal side when compared to previous admission s. His respiratory rate and pulse oximetry were within normal limits. His initial hemoglobin was 11.9 but when compared to previous hemoglobins this is a considerable drop as his baseline appears to be around 15. The emergency department has ordered 1 unit of blood given his drop. They did discuss the case with Dr. Vaughn from gastroenterology and he noted that he would evaluate the patient after admission. His initial lactic acid was 3.9 and his BUN was disproportionately elevated at 48 with a serum creatinine of 1.24. His BUN is approximately double compared to his baseline. His lipase was slightly elevated at 646 but anticipate this is related to his vomiting. He was given a Protonix bolus and IV fluids in the emergency department and we requested evaluate the patient for admission. He will be admitted the ICU. [facility] Medical History (Updated 04/16/21 @ 14:[address] Sara Diallo DO) GI bleed Hypertension Kidney stones Home Medications losartan-hydrochlorothiazide 1 tab PO DAILY 04/16/21 [History Last Taken Unknown] Allergy/AdvReac Type Severity Reaction Status Date / Time promethazine [From Phenergan] Allergy Anaphylaxis Verified 11/04/20 08:30 no significant family history Surgical History History of cholecystectomy History of repair of hiatal hernia Social History (Updated 04/16/21 @ 14:[address] Sara Diallo DO) Smoking Status: Never smoker alcohol intake: never substance use type: does not use ROS Constitutional Constitutional: Denies anorexia, change in weight, chills, fatigue, fever(s), malaise, night sweats, weakness or other Eyes Eyes: Denies blurry vision, change in eye color, change in vision, discharge from eye(s), double vision, erythema, eye pain, loss of vision or other ENT HEENT: Denies abnormal hearing, dysphagia, ear pain, epistaxis, headache(s), hearing loss, nasal congestion, nasal discharge, post nasal drip, sinus pressure, sore throat or other Cardiovascular Cardiovascular: Denies chest pain, claudication, dyspnea on exertion, edema, lightheadedness, orthopnea, palpitations, paroxysmal nocturnal dyspnea, rapid heart rate, syncope or other Respiratory/Chest Respiratory/Chest: Denies cough, dyspnea, excessive phlegm production, hemoptysis, productive cough, shortness of breath at rest, shortness of breath with exertion, wheezing or other Gastrointestinal Gastrointestinal: Reports hematemesis, nausea and vomiting; Denies abdominal pain, coffee ground emesis, constipation, diarrhea, dyspepsia, hematochezia, loose stools, melena or other Genitourinary Genitourinary: Denies burning urination, difficulty urinating, dysuria, hematuria, nocturia, urinary frequency, urinary hesitancy, urinary incontinence, urinary urgency or other Musculoskeletal Musculoskeletal: Denies arthralgias, back pain, joint pain, joint stiffness, joint swelling, myalgias, neck pain or other Neurologic Neurologic: Denies abnormal gait, abnormal speech, confusion, disequilibrium, dizziness, focal weakness, headache(s), numbness, paresthesias, seizure-like activity, seizures, syncope, tingling, tremor(s) or other Psychiatric Psychiatric: Denies anxiety, depression, homicidal ideation, suicidal ideation or other Endocrine Endocrinology: Denies change in body appearance, cold intolerance, excessive sweating, heat intolerance, polydipsia, polyuria or other Hematologic/Lymphatic Hematologic/Lymphatic: Denies anemia, easy bleeding, easy bruising, lymphadenopathy or other Allergic/Immunologic Allergic/Immunologic: Denies rhinitis, hives, eczemia, asthma or other Vital Signs Vital Signs Vital Signs: 04/16/21 06:33 04/16/21 08:12 04/16/21 09:30 Temperature 97.2 F L 98.0 F Temperature Source Temporal Oral Pulse Rate 97 96 102 H Pulse Strength Respiratory Rate 22 H 22 H 18 Respiratory Pattern Blood Pressure 105/69 109/73 142/79 H Blood Pressure [BP] Blood Pressure Mean 81 85 100 Blood Pressure Mean [BP] Blood Pressure Source Monitor Blood Pressure Source [BP] Blood Pressure Position Semi-Fowlers Blood Pressure Position [BP] Blood Pressure Location Right Arm Blood Pressure Location [BP] Baseline BP Pulse Ox 94 97 97 Oxygen Delivery Method Room Air Room Air Room Air 04/16/21 09:45 04/16/21 10:00 04/16/21 10:15 Temperature 98.2 F Temperature Source Temporal Pulse Rate 110 H 110 H 100 Pulse Strength Normal (2+) Respiratory Rate 21 H 19 H 17 Respiratory Pattern Blood Pressure 133/77 H 125/78 H 124/71 H Blood Pressure [BP] Blood Pressure Mean 95 93 88 Blood Pressure Mean [BP] Blood Pressure Source Monitor Monitor Monitor Blood Pressure Source [BP] Blood Pressure Position Semi-Fowlers Semi-Fowlers Semi-Fowlers Blood Pressure Position [BP] Blood Pressure Location Right Arm Right Arm Right Arm Blood Pressure Location [BP] Baseline BP Pulse Ox 98 96 96 Oxygen Delivery Method Room Air Room Air Room Air 04/16/21 10:30 04/16/21 11:00 04/16/21 11:27 Temperature Temperature Source Pulse Rate 110 H 110 H 109 H Pulse Strength Respiratory Rate 18 22 H Respiratory Pattern Blood Pressure Blood Pressure [BP] 113/72 112/65 Blood Pressure Mean Blood Pressure Mean [BP] 85 80 Blood Pressure Source Blood Pressure Source [BP] Monitor Monitor Blood Pressure Position Blood Pressure Position [BP] Semi-Fowlers Semi-Fowlers Blood Pressure Location Blood Pressure Location [BP] Right Arm Right Arm Baseline BP Pulse Ox 96 96 Oxygen Delivery Method Room Air Room Air 04/16/21 12:40 04/16/21 12:45 04/16/21 13:00 Temperature 98 F Temperature Source Temporal Pulse Rate 102 H 95 102 H Pulse Strength Respiratory Rate 16 16 16 Respiratory Pattern Normal Blood Pressure 85/58 L 93/61 102/68 Blood Pressure [BP] Blood Pressure Mean 67 71 79 Blood Pressure Mean [BP] Blood Pressure Source Monitor Monitor Monitor Blood Pressure Source [BP] Blood Pressure Position Left Lateral Left Lateral Semi-Fowlers Blood Pressure Position [BP] Blood Pressure Location Left Arm Left Arm Left Arm Blood Pressure Location [BP] Baseline BP 124/71 124/71 124/71 Pulse Ox 95 95 98 Oxygen Delivery Method Room Air Room Air Room Air 04/16/21 13:05 04/16/21 14:00 Temperature 98.5 F Temperature Source Temporal Pulse Rate 105 H 94 Pulse Strength Respiratory Rate 16 15 Respiratory Pattern Blood Pressure 114/78 Blood Pressure [BP] 117/76 Blood Pressure Mean 90 Blood Pressure Mean [BP] 89 Blood Pressure Source Monitor Blood Pressure Source [BP] Monitor Blood Pressure Position Semi-Fowlers Blood Pressure Position [BP] Semi-Fowlers Blood Pressure Location Left Arm Blood Pressure Location [BP] Right Arm Baseline BP 124/71 Pulse Ox 96 98 Oxygen Delivery Method Room Air Room Air Weight Weight: 105.5 kg Body Mass Index (BMI) 33.3 Physical Exam Const alert, oriented x3 and no apparent distress Constitutional Narrative: Obese older white male sitting up in bed, at bedside, nontoxic General Appearance: cooperative HEENT normocephalic, head/scalp atraumatic, hearing grossly normal bilaterally, moist oral mucous membranes, oropharynx normal and dentition normal Mouth: oral and palatal mucosa normal Eyes PERRL, EOMs intact bilaterally and conjunctivae normal Eyes Narrative: No scleral icterus Neck no lymphadenopathy, supple, no JVD and no carotid bruits Neck Narrative: Trachea midline, no thyroid enlargement Resp normal respiratory effort, no retractions, no use of accessory muscles and clear to auscultation bilaterally Auscultation: Negative for crackles, rales, rhonchi or wheezes Cardio regular rate, regular rhythm, S1 normal heart sound, S2 normal heart sound, no murmurs, no rub, no gallops, no clicks and no JVD GI normal to inspection, nondistended, normoactive bowel sounds, soft to palpation, non-tender and non-distended Extremity no clubbing, cyanosis or edema Peripheral Pulses: Yes pulses 2+ throughout Skin no rashes or lesions noted, no wounds, skin turgor normal, no jaundice, no petechiae and no mottling Neuro oriented x3, CN's II-XII intact bilaterally, moves all extremities and no focal motor deficits Sensorium / Orientation: awake and alert Speech: speech normal Motor Exam: strength 5/5 throughout Psych affect normal Results Lab / Micro Data Attestation: I reviewed the patient's lab results. Result Diagrams: 04/16/21 13:30 04/16/21 06:40 Labs: Laboratory Results - last 24 hr 04/16/21 06:40: WBC 13.5 H, RBC 4.17 L, Hgb 11.9 L, Hct 37.6 L, MCV 90.2, MCH 28.5, MCHC 31.6 L, RDW Std Deviation 42.7, RDW Coeff of Zoila 12.9, Plt Count 304, MPV 10.4, Immature Gran % (Auto) 0.400, Neut % (Auto) 77.8 H, Lymph % (Auto) 17.2 L, [place] % (Auto) 4.0, Eos % (Auto) 0.1, Baso % (Auto) 0.5, Absolute Neuts (auto) 10.5 H, Absolute Lymphs (auto) 2.31, Nucleated RBC % 0 04/16/21 06:40: Sodium 137, Potassium 4.7, Chloride 108 H, Carbon Dioxide 23.0, Anion Gap 6, BUN 48 H, Creatinine 1.24, Estim Creat Clear Calc 59.88, Est GFR (MDRD) Af Amer 74, Est GFR (MDRD) Non-Af 61, BUN/Creatinine Ratio 38.7 H, Glucose 223 H, Calcium 8.8, Total Bilirubin 0.70, AST 20, ALT 32, Alkaline Phosphatase 65, Troponin I High Sens 6, Total Protein 6.3 L, Albumin 2.8 L, Globulin 3.5, Albumin/Globulin Ratio 0.8 L, Lipase 646 H 04/16/21 06:40: Lactic Acid 3.9 H* 04/16/21 06:40: Blood Type A POSITIVE, Antibody Screen NEGATIVE, Crossmatch See Detail 04/16/21 09:40: Hgb 11.0 L, Hct 35.3 L 04/16/21 11:00: Lactic Acid 2.4 H* 04/16/21 13:30: Hgb 9.8 L, Hct 30.9 L Micro: Microbiology 04/16/21 06:50 Stool Stool Occult Blood (CHEO) - Final Occult Blood Positive Rhythm Strip Rhythm Strip: Sinus Rhythm Rate: 87 Ectopy: None Assessment & Plan Assessment/Plan (1) Lactic acidosis: (2) Acute anemia: (3) Leukocytosis: PLAN: Acute upper GI bleed -BUN is disproportionately elevated when compared to his serum creatinine -Protonix bolus given and will initiate drip -N.p.o. -History of Sam fundoplication-->? Complication related to previous surgery -Consult GI Lactic acidosis -Blood pressures are normal although slightly low for him -IV fluids bolused -We will trend -Not hemorrhagic shock Acute anemia secondary to upper GI bleed -Cycle H&H -Transfuse with large drop or obvious bleeding -2 units on hold -GI consult Leukocytosis -Suspect reactive -Continue to monitor Hypertension -Hold home antihypertensives given soft blood pressures -Follow blood pressure and restart appropriately DVT prophylaxis -Chemical prophylaxis is contraindicated -SCDs CODE STATUS -Full code Charges/Coding Visit Charges Inpatient E&M: 91248 Init Hosp L3
--- NOTE | 2021-04-16 15:42 | PCS.PANDOC ---
PANDEMIC DOCUMENTATION INITIATED: Date: 04/16/2021 Time: 929
[2021-04-16 17:24] LABS: Hematocrit 31.6 % (40-54)
[2021-04-16 21:34] LABS: Hemoglobin 9.7 g/dL (13.0-16.5)
[2021-04-17] VITALS (20 sets, daily range): BP systolic 109–135; BP diastolic 69–83; PULSE 81–105; RESP 14–24; TEMP 36.1–36.9; O2SAT 93–99; BMI 33.7
--- NOTE | 2021-04-17 00:10 | NURSING ---
Several periods of apnea noted on monitor lasting 5-12 seconds, pt desat to 60% at lowest. This nurse to bedside, pt quick to recover when aroused. 2L O2 applied via NC for comfort. Pt voices no needs at this time, will continue to closely monitor.
[2021-04-17] MEDS: Lactated Ringers 1,000 ML 75 ML IV ×3 (01:33→16:02)
[2021-04-17 04:56] LABS: Absolute Lymphocyte Count 2.04 X10^3/uL (0.83-4.51); Absolute Neutrophil Count 6.3 X10^3/uL (2.0-7.7); Basophil# 0.07 X10^3/uL; Basophil% 0.7 % (0-1); Eosinophil# 0.15 X10^3/uL; Eosinophils% 1.6 % (0-5); Hematocrit 29.3 % (40-54); Hemoglobin 9.5 g/dL (13.0-16.5); Lymphocyte # 2.04 X10^3/ul (0.83-4.51); Lymphocyte % 21.5 % (19-41); Mean Corp Hgb Conc 32.4 g/dL (32-36); Mean Corpuscular Hgb 29.5 pg (27.0-32.0); Mean Platelet Vol. 9.9 fl (6.2-12.0); Monocyte# 0.88 X10^3/uL; Monocyte% 9.3 % (0-10); NRBC Flagged by Analyzer 0 % (0-5); Neutrophil # 6.32 X10^3/uL (2.7-7.7); Neutrophil % 66.6 % (47-70); Platelet Count 234 K/mm3 (150-450); RBC Distribution Width CV 13.2 % (11.6-14.6); RBC Distribution Width SD 43.8 fl (35.1-43.9); Red Blood Count 3.22 M/mm3 (4.6-6.2); White Blood Count 9.5 K/mm3 (4.4-11.0)
[2021-04-17 05:21] LABS: ALB/GLOB Ratio 0.9 RATIO (0.9-2.4); AST(SGOT) 16 U/L (15-37); Alanine Aminotransfer ALT/SGPT 23 U/L (16-61); Albumin, Serum 2.6 g/dL (3.2-5.0); Alkaline Phosphatase 49 U/L (45-117); Anion Gap 5 (5-15); BUN 36 mg/dL (7-18); BUN/Creat Ratio 28.6 RATIO (10-20); Chloride 109 mmol/L (98-107); Creatinine, Serum 1.26 mg/dL (0.70-1.30); EST Glomerular Filtration Rate 60 mL/min (>60); Est Glom Filt Rate - Afr Amer 73 mL/min (>60); Estimated Creatinine Clearance 57.13 ml/min; Glucose 136 mg/dL (74-106); Magnesium 1.8 mg/dL (1.6-2.6); Phosphorus 2.3 mg/dL (2.5-4.9); Potassium 4.1 mmol/L (3.5-5.1); Protein, Total 5.6 g/dL (6.4-8.2); Sodium Level 140 mmol/L (136-145)
--- NOTE | 2021-04-17 09:30 | CASEMGMT ---
RN DUANE Face to Face with patient for initial transition planning/care coordination assessment. RN CM introduced self and role at [facility]. Patient sitting in chair, alert and oriented. Patient willing to participate in assessment and is able to answer all questions appropriately. Care providers, pharmacy, and demographics verified. Patient wishes to discharge home, denies need for home health at this time. Patient states he has no further needs or concerns at this time. CM to follow for discharge planning needs that may arise. PCP: [facility] Specialists: none Preferred Pharmacy: [facility] Insurance: [facility] Prescription Benefit: yes Living Will/HPOA: yes, Yary Blanchard LNOK: Living Arrangements: Patient lives with in a single story home with 2 steps to enter. Patient states he is independent at home. Transportation: self/ DME/HHC: Patient states he has cane at home. Patient denies previous HHC or SNF. Disposition Plan: Patient to discharge home with family support and follow-up plans in place. Татьяна MONTELONGO, RN, CM
--- NOTE | 2021-04-17 11:52 | PN.HOSP_ITS ---
Subjective Subjective Patient states he is feeling better today than yesterday. Denies any bowel movements or hematemesis. No nausea or vomiting either. EGD was done yesterday but too much blood in the stomach to ascertain what the issue was. Repeat EGD this afternoon. Patient is anxious to go home as soon as it is medically stable . Objective Data Objective Data Vital Signs: Vital Signs Temp Pulse Resp BP Pulse Ox 97.9 F 97 18 122/73 H 97 04/17/21 10:06 04/17/21 10:06 04/17/21 10:06 04/17/21 10:06 04/17/21 10:06 Oxygen Flow Rate (L/min) 2 Oxygen Delivery Method Room Air Weight: 106.6 kg Body Mass Index (BMI) 33.3 Intake & Output: Intake and Output for Last 24 Hours 04/15/21 04/16/21 04/17/21 23:59 23:59 23:59 Intake Total 2141.5 / 2141.5 1233.75 / 1233.75 Output Total 1100 / 1100 700 / 700 Balance 1041.5 / 1041.5 533.75 / 533.75 Lab / Micro Data Result Diagrams: 04/17/21 04:45 04/17/21 04:45 Labs: Laboratory Results - last 24 hr 04/16/21 13:30: Hgb 9.8 L, Hct 30.9 L 04/16/21 17:15: Hgb 10.0 L, Hct 31.6 L 04/16/21 21:10: Hgb 9.7 L, Hct 30.0 L 04/17/21 04:45: WBC 9.5, RBC 3.22 L, Hgb 9.5 L, Hct 29.3 L, MCV 91.0, MCH 29.5, MCHC 32.4, RDW Std Deviation 43.8, RDW Coeff of Zoila 13.2, Plt Count 234, MPV 9.9, Immature Gran % (Auto) 0.300, Neut % (Auto) 66.6, Lymph % (Auto) 21.5, [place] % (Auto) 9.3, Eos % (Auto) 1.6, Baso % (Auto) 0.7, Absolute Neuts (auto) 6.3, Absolute Lymphs (auto) 2.04, Nucleated RBC % 0 04/17/21 04:45: Sodium 140, Potassium 4.1, Chloride 109 H, Carbon Dioxide 26.0, Anion Gap 5, BUN 36 H, Creatinine 1.26, Estim Creat Clear Calc 57.13, Est GFR (MDRD) Af Amer 73, Est GFR (MDRD) Non-Af 60, BUN/Creatinine Ratio 28.6 H, Glucose 136 H, Calcium 8.0 L, Phosphorus 2.3 L, Magnesium 1.8, Total Bilirubin 0.60, AST 16, ALT 23, Alkaline Phosphatase 49, Total Protein 5.6 L, Albumin 2.6 L, Globulin 3.0, Albumin/Globulin Ratio 0.9 Micro: Microbiology 04/16/21 06:50 Stool Stool Occult Blood (CHEO) - Final Occult Blood Positive Rhythm Strip Rhythm Strip: Sinus Rhythm Rate: 87 Ectopy: None Physical Exam Const alert, oriented x3 and no apparent distress Constitutional Narrative: Obese older white male sitting up in a chair at the bedside in the ICU, patient appears comfortable nontoxic, no distress General Appearance: cooperative Exam Limitations: no limitations Nutritional Appearance: obese HEENT normocephalic, head/scalp atraumatic, hearing grossly normal bilaterally, moist oral mucous membranes, oropharynx normal and dentition normal Head and Scalp: normocephalic Resp normal respiratory effort, no retractions, no use of accessory muscles and clear to auscultation bilaterally Auscultation: Negative for crackles, rales, rhonchi or wheezes Cardio regular rate, regular rhythm, S1 normal heart sound, S2 normal heart sound, no murmurs, no rub, no gallops, no clicks and no JVD GI normal to inspection, nondistended, normoactive bowel sounds, soft to palpation, non-tender and non-distended Extremity no clubbing, cyanosis or edema Peripheral Pulses: Yes pulses 2+ throughout Neuro oriented x3, moves all extremities and no focal motor deficits Sensorium / Orientation: awake and alert Speech: speech normal Assessment & Plan Assessment/Plan (1) Acute anemia: (2) Leukocytosis: (3) Acute gastrointestinal bleeding: (4) Hypophosphatemia: PLAN: Acute upper GI bleed -EGD done on 04/16/2021 but too much blood in the stomach to make any meaningful diagnosis -Repeat EGD today later this afternoon pending -Hemoglobin has stabilized -Continue n.p.o. -Continue Protonix drip -History of Sam fundoplication-->? Complication related to previous surgery -GI is following Lactic acidosis -Resolved Acute anemia secondary to upper GI bleed -Hemoglobin did drop but has stabilized in the 8.5-9.5 range -Transfuse for obvious bleeding or drop less than 7 -2 units on hold -No transfusion required yesterday -Repeat CBC in a.m. Leukocytosis -Suspect reactive -Resolved Hypophosphatemia -Very mild -We will give small K Phos bolus -Repeat Phos in a.m. Hypertension -We will continue to hold home antihypertensives -Follow blood pressure and restart appropriately DVT prophylaxis -Chemical prophylaxis is contraindicated with bleeding -SCDs CODE STATUS -Full code Charges/Coding Visit Charges Inpatient E&M: 44607 Subs Hosp L2
--- NOTE | 2021-04-17 14:15 | EGD_PTH ---
PATIENT: KRISTIN LARA LOC: [facility] U#:[id number] AGE/SX: 71/M ROOM: [facility] RE04/16/[address]: Dr. Sara Diallo DO : 1950 BED: 1 DIS: 04/18/2021 SPEC #: [id number] RECD: 04/17/21 17:04 STATUS: GARY GILMORE #: [id number] HASMUKH: 04/17/21 14:[address]: Burt Vaughn DEPT: SURGICAL PATHOLOGY RECD BY: Coco Daniel ENTERED: 04/18/21 08:58 SP TYPE: EGD BIOPSY OT DR: MD Dr. Sara Belcher DO Tissues: Esophagus, NOS Procedures: Special Stain Group II Surgery Specimen Level IV Alcian Blue/PAS (control) Comments: @ Ordering doctor for LILIANA edited from to @ vincent SCHERER at 04/18/21 140 @ Submitting doctor edited from to @ by NIESHA at 04/18/21 1408 HEADER OPERATION: EGD PRE-OP DIAGNOSIS: Acute GI bleeding TISSUE SUBMITTED: Distal esophagus biopsy MICROSCOPIC DIAGNOSIS Distal esophagus, biopsy: Gastroesophageal junctional mucosa with mild chronic inflammation. No evidence of goblet cell metaplasia. Focal changes of reflux. AM:naomi 04/19/2021 COMMENT Alcian blue/PAS stain with matched control supports the above diagnosis. MICROSCOPIC DESCRIPTION Slides are reviewed. GROSS DESCRIPTION Received in fixative is one container labeled with the patient's name and designated distal esophagus biopsy. The specimen consists of multiple irregular fragments of light wolfe soft tissue that in aggregate measure 0.8 x 0.3 x 0.1 cm. The specimen is totally submitted in one cassette. / SJ:naomi 04/18/21 TC:3 CPT: 94156, 36040
[2021-04-17] MEDS: Lactated Ringers 1,000 ML 50 ML IV (17:50)
[2021-04-17] MEDS: Pantoprazole Sodium 40 MG Tablet PO (21:50)
[2021-04-18] VITALS: BMI 33.7
[2021-04-18 02:59] VITALS: PULSE 85
[2021-04-18 05:25] VITALS: BP 132/71; PULSE 91; RESP 16; TEMP 36.8; O2SAT 97
[2021-04-18 06:11] LABS: Absolute Lymphocyte Count 1.01 X10^3/uL (0.83-4.51); Absolute Neutrophil Count 5.8 X10^3/uL (2.0-7.7); Basophil# 0.05 X10^3/uL; Basophil% 0.7 % (0-1); Eosinophil# 0.13 X10^3/uL; Eosinophils% 1.7 % (0-5); Hematocrit 26.9 % (40-54); Hemoglobin 8.8 g/dL (13.0-16.5); Lymphocyte # 1.01 X10^3/ul (0.83-4.51); Lymphocyte % 13.4 % (19-41); Mean Corp Hgb Conc 32.7 g/dL (32-36); Mean Corpuscular Hgb 29.5 pg (27.0-32.0); Mean Corpuscular Volume 90.3 fL (80-94); Mean Platelet Vol. 9.6 fl (6.2-12.0); Monocyte# 0.56 X10^3/uL; Monocyte% 7.4 % (0-10); NRBC Flagged by Analyzer 0 % (0-5); Neutrophil # 5.77 X10^3/uL (2.7-7.7); Neutrophil % 76.4 % (47-70); Platelet Count 218 K/mm3 (150-450); RBC Distribution Width CV 13.1 % (11.6-14.6); Red Blood Count 2.98 M/mm3 (4.6-6.2); White Blood Count 7.6 K/mm3 (4.4-11.0)
[2021-04-18 06:32] LABS: Anion Gap 6 (5-15); BUN 22 mg/dL (7-18); BUN/Creat Ratio 17.9 RATIO (10-20); Calcium,Total 7.9 mg/dL (8.5-10.1); Chloride 109 mmol/L (98-107); Creatinine, Serum 1.23 mg/dL (0.70-1.30); EST Glomerular Filtration Rate 62 mL/min (>60); Est Glom Filt Rate - Afr Amer 75 mL/min (>60); Estimated Creatinine Clearance 58.53 ml/min; Glucose 127 mg/dL (74-106); Phosphorus 2.8 mg/dL (2.5-4.9); Potassium 3.7 mmol/L (3.5-5.1); Sodium Level 142 mmol/L (136-145)
[2021-04-18 07:00] VITALS: PULSE 96
[2021-04-18] MEDS: Pantoprazole Sodium 40 MG Tablet PO (10:16)
--- NOTE | 2021-04-18 11:44 | DS.PCM_ITS ---
Providers Date of Admission: 04/16/21 Primary Care Physician: Dr. Michelet Trotter MD Consultations 04/16/21 09:01 Consult: Gastroenterology Routine Consulting Provider: [facility] Reason for Consult: UGIB EMERGENT Consult: No MD Notified: Yes Date Notified: 04/16/21 Time Notified: 06:42 Method of Notification: Verbal Comments:: ER physician spoke to Dr alejandro Reason For Visit: UGIB Diagnosis Discharge Diagnosis (1) Acute anemia: Status: Acute Code(s): D64.9 - Anemia, unspecified (2) Leukocytosis: Status: Acute Code(s): D72.829 - Elevated white blood cell count, unspecified (3) Acute gastrointestinal bleeding: Status: Acute Code(s): K92.2 - Gastrointestinal hemorrhage, unspecified (4) Hypophosphatemia: Status: Acute Code(s): E83.39 - Other disorders of phosphorus metabolism Medications at Discharge Home Medications losartan-hydrochlorothiazide 1 tab PO DAILY 04/16/21 pantoprazole 40 mg PO BID #60 tab 04/18/21 Hospital Course Operations None Procedures EGD Summary of Care Provided Minutes Spent on Discharge: 36 Hospital Course: KRISTIN LARA, is a 71 M who presented to the emergency department at [facility] with a chief complaint of hematemesis. The patient was feeling well up until 1130 the evening prior to admission when he started to not feel well in general. He fell asleep and woke up at 2 AM and was still not feeling well and went out to try to sleep on the couch although he stated that he did not sleep well at all. At approximately 530 this morning he started vomiting blood and the reports it was a decent amount but uncertain of the exact volume. The patient reported that he has a history of GI bleeds up until 11 years ago when he had a Sam fundoplication done and had none since. He denied any use of aspirin or any other NSAIDs. He was taking no medications other than losartan/HCTZ. He had no further vomiting prior to presentation to the emergency department and is feeling improved since he is had a liter of fluids. He was noted to be afebrile but mildly tachycardic and his blood pressures were on the low normal side when compared to previous admissions. His respiratory rate and pulse oximetry were within normal limits. His initial hemoglobin was 11.9 but when compared to previous hemoglobins this is a considerable drop as his baseline appears to be around 15. They had discussed the case with Dr. Alejandro from gastroenterology and he noted that he would evaluate the patient after admission. His initial lactic acid was 3.9 and his BUN was disproportionately elevated at 48 with a serum creatinine of 1.24. His BUN is approximately double compared to his baseline. His lipase was slightly elevated at 646 but anticipate this is related to his vomiting. He was given a Protonix bolus and IV fluids in the emergency department and we requested e valuate the patient for admission. He was admitted to the ICU and placed on a Protonix drip as well as IV fluids. An EGD was able to be performed on the date of admission 04/16/2021, this EGD showed hematin in the lower third of the esophagus and in the stomach as well as a large hiatal hernia and the second portion of the.duodenum was evaluated and found to be normal. Given the inability to thoroughly evaluate his esophagus and stomach a repeat EGD was recommended for the following day. The patient's hemoglobin did stabilize and he did not require transfusion during his hospitalization. His repeat EGD was performed on 04/17/2021 and visualization was much improved showing an LA grade a esophagitis with no bleeding, a large hiatal hernia and a normal second portion of the duodenum it was felt that his bleeding was from an area at the GE junction from where the Sam fundoplication dehisced slightly but he had no active signs of bleeding at the time of scope. Biopsies were taken in the esophagus to rule out Polk's esophagus. The recommendation was for continued PPI with 40 mg Protonix twice daily for a month and follow-up in [address] Alejandro from gastroenterology. Prescription for Protonix was written and faxed to his pharmacy. The patient was placed on a regular diet and tolerated this well. Pathology results were pending at discharge. Discharge diagnoses: Acute upper GI bleed secondary to Sam fundoplication dehiscence-resolved Acute anemia secondary to blood loss Lactic acidosis-resolved Leukocytosis-resolved Hypophosphatemia-resolved Hypertension Physical Exam Const alert, oriented x3 and no apparent distress Constitutional Narrative: Obese older white male sitting up in bed, patient appears comfortable nontoxic, no distress, very pleasant General Appearance: cooperative, comfortable, well kempt and well developed Orientation / Consciousness: awake Exam Limitations: no limitations Nutritional Appearance: obese HEENT normocephalic, head/scalp atraumatic, hearing grossly normal bilaterally, moist oral mucous membranes, oropharynx normal and dentition normal Eyes PERRL, EOMs intact bilaterally and conjunctivae normal Eyes Narrative: No scleral icterus Neck no lymphadenopathy, supple, no JVD and no carotid bruits Neck Narrative: Trachea midline, no thyroid enlargement Resp normal respiratory effort, no retractions, no use of accessory muscles and clear to auscultation bilaterally Auscultation: Negative for crackles, rales, rhonchi or wheezes Cardio regular rate, regular rhythm, S1 normal heart sound, S2 normal heart sound, no murmurs, no rub, no gallops, no clicks and no JVD GI normal to inspection, nondistended, normoactive bowel sounds, soft to palpation, non-tender and non-distended Extremity no clubbing, cyanosis or edema Skin no rashes or lesions noted, no wounds, skin turgor normal, no jaundice, no petechiae and no mottling Neuro oriented x3, moves all extremities and no focal motor deficits Sensorium / Orientation: awake and alert Speech: speech normal Motor Exam: strength 5/5 throughout Psych affect normal Psych Narrative: Very pleasant and in a good mood, BB gun at home Weight / BMI Weight Weight: 104.825 kg Body Mass Index (BMI) 33.3 ABG / Lab / Microbiology Data Result Diagrams: 04/18/21 05:54 04/18/21 05:54 Laboratory: Laboratory Results - last 24 hr 04/18/21 05:54: WBC 7.6, RBC 2.98 L, Hgb 8.8 L, Hct 26.9 L, MCV 90.3, MCH 29.5, MCHC 32.7, RDW Std Deviation 43.0, RDW Coeff of Zoila 13.1, Plt Count 218, MPV 9.6, Immature Gran % (Auto) 0.400, Neut % (Auto) 76.4 H, Lymph % (Auto) 13.4 L, Hale % (Auto) 7.4, Eos % (Auto) 1.7, Baso % (Auto) 0.7, Absolute Neuts (auto) 5.8, Absolute Lymphs (auto) 1.01, Nucleated RBC % 0 04/18/21 05:54: Sodium 142, Potassium 3.7, Chloride 109 H, Carbon Dioxide 27.0, Anion Gap 6, BUN 22 H, Creatinine 1.23, Estim Creat Clear Calc 58.53, Est GFR (MDRD) Af Amer 75, Est GFR (MDRD) Non-Af 62, BUN/Creatinine Ratio 17.9, Glucose 127 H, Calcium 7.9 L, Phosphorus 2.8 Microbiology: Microbiology 04/16/21 06:50 Stool Stool Occult Blood (CHEO) - Final Occult Blood Positive D/C Instructions Discharge Diet: Low fat / Low cholesterol Meaningful Use Info Meaningful Use Diagnoses (Choose all that apply): None applicable Discharge Plan Admission Admit Date/Time: 04/16/21 07:57 Primary Reason for Your Visit: Upper GI bleed Attending Provider: Sara Diallo Primary Care Provider: Michelet Trotter Discharge Orders/Prescriptions Prescriptions: New pantoprazole 40 mg Tablet,Delayed Release (Dr/Ec) 40 mg PO BID Qty: 60 RF: 0 Continued losartan-hydrochlorothiazide 50-12.5 mg Tablet 1 tab PO DAILY RF: 0 Referrals / Follow Up: Michelet Trotter MD [Primary Care Provider] - Within 2 Weeks Burt Alejandro DO [STAFF PHYSICIAN] - Within 2 Weeks Disposition Disposition (needs filled in before D/C Order can be placed): Home, Self Care Charges/Coding Visit Charges Inpatient E&M: 20428 Disch Hosp
[2021-04-18 11:52] VITALS: BP 143/83; PULSE 99; RESP 16; TEMP 36.6; O2SAT 96
--- NOTE | 2021-04-18 12:10 | PHA.DC.MC ---
Pharmacy Service has performed discharge medication reconciliation and counseling for this patient. 1. PANTOPRAZOLE 40MG PO BID The patient's discharge medication list was reviewed for discrepancies and discrepancies were resolved. Home Medications losartan-hydrochlorothiazide 1 tab PO DAILY 04/16/21 pantoprazole 40 mg PO BID #60 tab 04/18/21 The patient was counseled on the following discharge medications and changes in medications for homegoing were reviewed. The Reason for Use, instructions for use, and potential side effects were reviewed for all new medications. The patient's questions regarding all of their medications were answered. The patient was able to verbally demonstrate an understanding of their discharge medications.
--- NOTE | 2022-02-08 06:24 | OP.EGD_ITS ---
Patient Name: Alek Blanchard Procedure Date: 04/17/2021 3:28 PM Date of : 1950 Age: 71 Procedure: Upper GI endoscopy Indications: Hematemesis Providers: Burt Vaughn DO Patient Profile: This is a 71 year old male. Refer to note in patient chart for documentation of history and physical. Patient has symptoms of acute vomiting. He is status post EGD for treatment of bleeding recently. Complications: No immediate complications. Procedure: Pre-Anesthesia Assessment: - Prior to the procedure, a History and Physical was performed, and patient medications and allergies were reviewed. The patient is competent. The risks and benefits of the procedure and the sedation options and risks were discussed with the patient. All questions were answered and informed consent was obtained. Patient identification and proposed procedure were verified by the physician in the pre-procedure area. Mental Status Examination: alert and oriented. Airway Examination: normal oropharyngeal airway and neck mobility. Respiratory Examination: clear to auscultation. CV Examination: normal. Prophylactic Antibiotics: The patient does not require prophylactic antibiotics. Prior Anticoagulants: The patient has taken no previous anticoagulant or antiplatelet agents. ASA Grade Assessment: II - A patient with mild systemic disease. After reviewing the risks and benefits, the patient was deemed in satisfactory condition to undergo the procedure. The anesthesia plan was to use moderate sedation / analgesia (conscious sedation). Immediately prior to administration of medications, the patient was re-assessed for adequacy to receive sedatives. The heart rate, respiratory rate, oxygen saturations, blood pressure, adequacy of pulmonary ventilation, and response to care were monitored throughout the procedure. The physical status of the patient was re-assessed after the procedure. After obtaining informed consent, the endoscope was passed under direct vision. Throughout the procedure, the patient's blood pressure, pulse, and oxygen saturations were monitored continuously. The gastroscope was introduced through the mouth, and advanced to the second part of duodenum. The upper GI endoscopy was accomplished without difficulty. The patient tolerated the procedure well. Moderate Sedation: Moderate (conscious) sedation was administered by the endoscopy nurse and supervised by the endoscopist. The patient's oxygen saturation, heart rate, blood pressure and response to care were monitored. Total physician intraservice time was 15 minutes. Moderate (conscious) sedation was administered by the endoscopy nurse and supervised by the endoscopist. The patient's oxygen saturation, heart rate, blood pressure and response to care were monitored. Total physician intraservice time was 15 minutes. Scope In: 3:33:57 PM Scope Out: 3:40:36 PM Total Procedure Duration Time 0 hours 6 minutes 39 seconds Findings: LA Grade A (one or more mucosal breaks less than 5 mm, not extending between tops of 2 mucosal folds) esophagitis with no bleeding was found 34 to 35 cm from the incisors. Biopsies were taken with a cold forceps for histology. Verification of patient identification for the specimen was done. Estimated blood loss was minimal. A large hiatal hernia was present. The second portion of the duodenum was normal. Impression: - LA Grade A reflux esophagitis. Rule out Polk's esophagus. Biopsied. - Large hiatal hernia. - Normal second portion of the duodenum. Recommendation: - Discharge patient to home. - Resume previous diet. - Continue present medications. - Await pathology results. Procedure Code(s): --- Professional --- 74743, Esophagogastroduodenoscopy, flexible, transoral; with biopsy, single or multiple G0500, Moderate sedation services provided by the same physician or other qualified health home health care social worker performing a gastrointestinal endoscopic service that sedation supports, requiring the presence of an independent trained observer to assist in the monitoring of the patient's level of consciousness and physiological status; initial 15 minutes of intra-service time; patient age 5 years or older (additional time may be reported with 47087, as appropriate) G0500, Moderate sedation services provided by the same physician or other qualified health home health care social worker performing a gastrointestinal endoscopic service that sedation supports, requiring the presence of an independent trained observer to assist in the monitoring of the patient's level of consciousness and physiological status; initial 15 minutes of intra-service time; patient age 5 years or older (additional time may be reported with 59954, as appropriate) CPT copyright 2017 [employer] [employer]. All rights reserved. The codes documented in this report are preliminary and upon residence hall director review may be revised to meet current compliance requirements. Burt Vaughn DO 04/17/2021 3:57:02 PM This report has been signed electronically. Number of Addenda: 1 Note Initiated On: 04/17/2021 3:28 PM Addendum Number: 1 Addendum Date: 02/08/2022 6:20:26 AM MAC was used instead of moderate sedation for this patient. Burt Vaughn DO 02/08/2022 6:20:30 AM This report has been signed electronically.
== END 2021-04-18 13:15 | disposition home or self-care (01) | DRG 920 ==
LOC: ED 08:04 → ICU 08:19 → PCU 04-17 10:01
PROVIDERS: Internal Medicine Gastroenterology; Admitting Provider Internal Medicine; Emergency Provider Emergency Medicine; PCP Family Medicine; Visit Provider Internal Medicine
PROC: 0DJ08ZZ Inspection of Upper Intestinal Tract, Via Natural or Artificial Opening Endoscopic (ICD-10-PCS; principal; 2021-04-16 12:25)
PROC: 0DB58ZX Excision of Esophagus, Via Natural or Artificial Opening Endoscopic, Diagnostic (ICD-10-PCS; principal; 2021-04-17 14:10)
DX: T81.32XA Disruption of internal operation (surgical) wound, not elsewhere classified, initial encounter (principal); D62 Acute posthemorrhagic anemia; E87.2 Acidosis; Y83.8 Other surgical procedures as the cause of abnormal reaction of the patient, or of later complication, without mention of misadventure at the time of the procedure; Y92.9 Unspecified place or not applicable; K20.90 Esophagitis, unspecified without bleeding; I95.9 Hypotension, unspecified; D72.829 Elevated white blood cell count, unspecified; E83.39 Other disorders of phosphorus metabolism; I10 Essential (primary) hypertension; E66.9 Obesity, unspecified; Z68.33 Body mass index [BMI] 33.0-33.9, adult; Z87.11 Personal history of peptic ulcer disease
CPT/HCPCS: 36415; 80048; 80053; 82274; 83605; 83690; 83735; 84100; 84484; 85014; 85018; 85025; 86850; 86900; 86901; 86920; 86922; 88305; 88313; 93005; 99251; 99285; J7030; J7050; J7120; A4216; G0463; J2405; J3490

== ENCOUNTER → 2021-05-08 08:36 | Outpatient (CLI) | payer MEDICARE, SELFPAY ==
[2021-05-08 09:54] LABS: Absolute Lymphocyte Count 1.49 X10^3/uL (0.83-4.51); Absolute Neutrophil Count 4.4 X10^3/uL (2.0-7.7); Basophil# 0.07 X10^3/uL; Eosinophil# 0.18 X10^3/uL; Eosinophils% 2.7 % (0-5); Hematocrit 36.8 % (40-54); Hemoglobin 11.4 g/dL (13.0-16.5); Lymphocyte # 1.49 X10^3/ul (0.83-4.51); Lymphocyte % 22.1 % (19-41); Mean Corpuscular Hgb 27.1 pg (27.0-32.0); Mean Corpuscular Volume 87.4 fL (80-94); Mean Platelet Vol. 9.9 fl (6.2-12.0); Monocyte# 0.57 X10^3/uL; Monocyte% 8.5 % (0-10); NRBC Flagged by Analyzer 0 % (0-5); Neutrophil # 4.41 X10^3/uL (2.7-7.7); Neutrophil % 65.4 % (47-70); Platelet Count 365 K/mm3 (150-450); RBC Distribution Width CV 13.1 % (11.6-14.6); RBC Distribution Width SD 41.6 fl (35.1-43.9); Red Blood Count 4.21 M/mm3 (4.6-6.2); White Blood Count 6.7 K/mm3 (4.4-11.0)
[2021-05-08 10:13] LABS: Hemoglobin A1c 5.7 % (3.8-5.6)
[2021-05-08 10:20] LABS: ALB/GLOB Ratio 0.9 RATIO (0.9-2.4); AST(SGOT) 28 U/L (15-37); Alanine Aminotransfer ALT/SGPT 34 U/L (16-61); Albumin, Serum 3.5 g/dL (3.2-5.0); Alkaline Phosphatase 78 U/L (45-117); Anion Gap 8 (5-15); BUN 21 mg/dL (7-18); Calcium,Total 8.8 mg/dL (8.5-10.1); Chloride 106 mmol/L (98-107); Creatinine, Serum 1.31 mg/dL (0.70-1.30); EST Glomerular Filtration Rate 58 mL/min (>60); Est Glom Filt Rate - Afr Amer 70 mL/min (>60); Ferritin 28 ng/mL (26-388); Globulin 3.8 g/dL (2.2-4.2); Glucose 126 mg/dL (74-106); Iron 26 ug/dL (65-175); Iron Binding Capacity,Total 457 ug/dL (250-450); Protein, Total 7.3 g/dL (6.4-8.2); Sodium Level 139 mmol/L (136-145)
== END ==
PROVIDERS: PCP Family Medicine; Referring Provider Family Medicine; Visit Provider Family Medicine
DX: R73.09 Other abnormal glucose (principal); K21.9 Gastro-esophageal reflux disease without esophagitis; K92.2 Gastrointestinal hemorrhage, unspecified
CPT/HCPCS: 36415; 80053; 82728; 83036; 83540; 83550; 85025

== ENCOUNTER → 2021-05-31 14:21 | Outpatient (CLI) | payer MEDICARE, SELFPAY ==
[2021-05-31 17:21] LABS: Absolute Lymphocyte Count 1.44 X10^3/uL (0.83-4.51); Absolute Neutrophil Count 5.1 X10^3/uL (2.0-7.7); Basophil# 0.07 X10^3/uL; Basophil% 0.9 % (0-1); Eosinophil# 0.12 X10^3/uL; Eosinophils% 1.6 % (0-5); Hematocrit 40.7 % (40-54); Hemoglobin 12.2 g/dL (13.0-16.5); Lymphocyte # 1.44 X10^3/ul (0.83-4.51); Lymphocyte % 19.1 % (19-41); Mean Corpuscular Hgb 25.9 pg (27.0-32.0); Mean Corpuscular Volume 86.4 fL (80-94); Mean Platelet Vol. 10.5 fl (6.2-12.0); Monocyte% 10.6 % (0-10); NRBC Flagged by Analyzer 0 % (0-5); Neutrophil # 5.07 X10^3/uL (2.7-7.7); Neutrophil % 67.5 % (47-70); Platelet Count 380 K/mm3 (150-450); RBC Distribution Width CV 14.6 % (11.6-14.6); RBC Distribution Width SD 46.5 fl (35.1-43.9); Red Blood Count 4.71 M/mm3 (4.6-6.2); White Blood Count 7.5 K/mm3 (4.4-11.0)
[2021-05-31 17:41] LABS: Anion Gap 10 (5-15); BUN 24 mg/dL (7-18); BUN/Creat Ratio 19.4 RATIO (10-20); Calcium,Total 8.5 mg/dL (8.5-10.1); Chloride 108 mmol/L (98-107); Creatinine, Serum 1.24 mg/dL (0.70-1.30); EST Glomerular Filtration Rate 61 mL/min (>60); Est Glom Filt Rate - Afr Amer 74 mL/min (>60); Ferritin 49 ng/mL (26-388); Glucose 100 mg/dL (74-106); Iron 44 ug/dL (65-175); Iron Binding Capacity,Total 410 ug/dL (250-450); Sodium Level 142 mmol/L (136-145)
== END ==
PROVIDERS: PCP Family Medicine; Referring Provider Family Medicine; Visit Provider Family Medicine
DX: D50.9 Iron deficiency anemia, unspecified (principal); R94.4 Abnormal results of kidney function studies
CPT/HCPCS: 36415; 80048; 82728; 83540; 83550; 85025

== ENCOUNTER 2021-08-07 16:10 | Outpatient (CLI) | payer MEDICARE, SELFPAY ==
[2021-08-07 17:41] LABS: Absolute Lymphocyte Count 2.48 X10^3/uL (0.83-4.51); Absolute Neutrophil Count 3.2 X10^3/uL (2.0-7.7); Basophil# 0.05 X10^3/uL; Basophil% 0.8 % (0-1); Eosinophil# 0.18 X10^3/uL; Eosinophils% 2.7 % (0-5); Hematocrit 49.1 % (40-54); Hemoglobin 15.9 g/dL (13.0-16.5); Lymphocyte # 2.48 X10^3/ul (0.83-4.51); Lymphocyte % 37.4 % (19-41); Mean Corp Hgb Conc 32.4 g/dL (32-36); Mean Corpuscular Hgb 27.2 pg (27.0-32.0); Mean Corpuscular Volume 84.1 fL (80-94); Mean Platelet Vol. 10.7 fl (6.2-12.0); Monocyte# 0.66 X10^3/uL; NRBC Flagged by Analyzer 0 % (0-5); Neutrophil # 3.22 X10^3/uL (2.7-7.7); Neutrophil % 48.5 % (47-70); Platelet Count 267 K/mm3 (150-450); RBC Distribution Width CV 15.9 % (11.6-14.6); RBC Distribution Width SD 49.2 fl (35.1-43.9); Red Blood Count 5.84 M/mm3 (4.6-6.2); White Blood Count 6.6 K/mm3 (4.4-11.0)
[2021-08-07 18:15] LABS: Hemoglobin A1c 6.3 % (3.8-5.6)
[2021-08-07 18:30] LABS: ALB/GLOB Ratio 0.9 RATIO (0.9-2.4); AST(SGOT) 42 U/L (15-37); Alanine Aminotransfer ALT/SGPT 52 U/L (16-61); Albumin, Serum 3.5 g/dL (3.2-5.0); Alkaline Phosphatase 74 U/L (45-117); Anion Gap 8 (5-15); BUN 22 mg/dL (7-18); BUN/Creat Ratio 19.8 RATIO (10-20); Calcium,Total 8.8 mg/dL (8.5-10.1); Chloride 102 mmol/L (98-107); Cholesterol 164 mg/dL (200); Creatinine, Serum 1.11 mg/dL (0.70-1.30); EST Glomerular Filtration Rate 70 mL/min (>60); Est Glom Filt Rate - Afr Amer 84 mL/min (>60); Globulin 4.1 g/dL (2.2-4.2); Glucose 91 mg/dL (74-106); High Density Lipoprotein 51 mg/dL; Potassium 3.6 mmol/L (3.5-5.1); Protein, Total 7.6 g/dL (6.4-8.2); Sodium Level 138 mmol/L (136-145); Thyroid Stim Hormone (TSH) 2.77 uIU/mL (0.358-3.74); Triglycerides 280 mg/dL; Very Low Density Lipoprotein 56 mg/dL (5-40)
== END 2021-08-07 23:59 | disposition home or self-care (01) ==
LOC: MFPLAB 16:13
PROVIDERS: PCP Family Medicine; Referring Provider Family Medicine; Visit Provider Family Medicine
DX: I10 Essential (primary) hypertension (principal); R73.02 Impaired glucose tolerance (oral)
CPT/HCPCS: 36415; 80053; 80061; 83036; 84443; 85025

== ENCOUNTER 2021-08-20 09:04 | Day surgery (SDC) | payer MEDICARE, SELFPAY ==
[2021-08-20] VITALS (7 sets, daily range): BP systolic 92–154; BP diastolic 59–93; PULSE 71–92; RESP 14–16; TEMP 36.1–36.6; O2SAT 95–99; BMI 31.6
--- NOTE | 2021-08-20 | COLBX_PTH ---
PATIENT: KRISTIN LARA LOC: EN U#:[id number] AGE/SX: 71/M ROOM: RE08/20/[address]: Dr. Burt Vaughn DO : 1950 BED: DIS: 08/20/2021 SPEC #: [id number] RECD: 08/20/21 15:30 STATUS: GARY LEONGBrian #: [id number] HASMUKH: 08/20/21 00:[address]: Burt Vaughn DEPT: SURGICAL PATHOLOGY RECD BY: Nicko Key ENTERED: 08/21/21 10:42 SP TYPE: COLON BX OTHR DR: Dr. Michelet Trotter MD Tissues: COLON BIOPSY Procedures: Surgery Specimen Level IV HEADER OPERATION: Colonoscopy, EGD ([facility]) PRE-OP DIAGNOSIS: Blood loss anemia TISSUE SUBMITTED: Hepatic flexure lipoma biopsy MICROSCOPIC DIAGNOSIS Colonic mucosa at hepatic flexure, biopsy: Mild glandular distortion. No evidence of malignancy. See comment. AM:naomi 08/22/2021 COMMENT A lipomatous lesion is not identified. Clinical correlation is suggested. MICROSCOPIC DESCRIPTION Slides are reviewed. GROSS DESCRIPTION Received in fixative is one container labeled with the patient's name and designated hepatic flexure biopsy. The specimen consists of two irregular fragments of light wolfe soft tissue that in aggregate measure 0.6 x 0.6 x 0.1 cm. The specimen is totally submitted in one cassette. / AM:naomi 08/21/2021 TC:5 CPT: 33895
--- NOTE | 2021-08-20 09:14 | PCM.HP.BLA ---
History and Physical Date of Admission: 08/20/21 71 M who presents to the office today for a follow-up visit after being seen in the hospital. Last seen as [facility] inpatient on 04/16/21 where he was treated for worsening abdominal pain and hematemesis. Reported remote history of bleeding gastric ulcers through to be secondary NSAIDs. He was discovered to have an acute upper GI bleed secondary to Iman-Cm tear in ED his suture from a previous Sam fundoplication did a root the lining of the distal esophagus. He is doing very well. He is not having abdominal pain. Is not any nausea. His bowel moods are normal with normal color. Acute abdominal GI Bleed ? EGD EGD performed 04/16/21 with findings of hematin in the lower third of the esophagus and stomach. Large hiatal hernia. Discharged home 04/18/21. States that since discharge he as been doing very well. He feels a little SOB and fatigued but this is improving steadily. ROS Cardio Cardiology: Positive for shortness of breath Exam Const General: cooperative and comfortable Nutritional Appearance: average body habitus and well nourished HENMT Head: normal to inspection Ears: hearing grossly normal bilaterally Nose: external nose normal Face and sinus: normal facial exam Mouth: oral mucosae normal Throat: posterior oropharynx normal Eyes General: appearance normal, both eyes and all related structures Neck Neck: normal visual inspection Chest Chest palpation & inspection: normal inspection of the chest and normal palpation of entire chest wall Resp Effort & Inspection: normal respiratory effort Auscultation: Bilateral: Clear to Auscultation Cardio Palpation: normal PMI Rate: regular rate Rhythm: regular rhythm GI Inspection: normal to inspection Auscultation: normal bowel sounds Percussion: normal to percussion Palpation: no hepatosplenomegaly Skin General: no rashes or lesions noted Neuro General: patient alert Extrem General: normal to inspection Psych Affect: normal affect Quality Reporting Tobacco Screening ([facility] 138) Smoking Status: Never smoker Assessment and Plan Assessment and Plan (1) Blood loss anemia: Status: Acute Plan - Dr. Dallas Friend, DO: We will recheck iron studies to make sure that he is appropriately improving from a biochemical standpoint. If continues to be intermittent he may due to iron transfusion and repeat upper endoscopy. For now is doing very well without abdominal pain without any chest pain. I suspect he will have a good prognosis. We will continue antisecretory therapy along with PPI therapy for now to hopefully speed up the healing process. I have re-examined the patient. There are no clinical changes since date of exam.
[2021-08-20] MEDS: Lactated Ringers 1,000 ML 15 ML IV (09:34)
--- NOTE | 2021-08-20 10:50 | OP.CCLET_ITS ---
03/06/2022 Michelet Trotter [address] [place] [address] Re : Upper GI endoscopy procedure for Alek Blanchard Dear Dr. Trotter This procedure was performed on Friday, August 20, 2021. My impressions and recommendations are as follows: Impressions : - Normal esophagus. - Medium-sized hiatal hernia. - A 270 degree fundoplication was found. The wrap appears loose. 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 Treated with argon plasma coagulation (APC). - Normal third portion of the duodenum. - No specimens collected. Recommendations : - Discharge patient to home. - Resume previous diet. - Continue present medications. My findings are described in the full procedure note, which is enclosed. If I can be of further assistance, please feel free to contact me at . Sincerely, Burt Friend, 08/20/2021 10:49:19 AM This report has been signed electronically.
--- NOTE | 2021-08-20 10:50 | OP.EGD_ITS ---
Patient Name: Alek Blanchard Procedure Date: 08/20/2021 9:58 AM Date of : 1950 Age: 71 Procedure: Upper GI endoscopy Indications: Iron deficiency anemia Providers: Burt Vaughn DO Medicines: See the Anesthesia note for documentation of the administered medications Patient Profile: This is a 71 year old male. Refer to note in patient chart for documentation of history and physical. Patient has symptoms. He is status post EGD for treatment of bleeding within the past three months. Complications: No immediate complications. Procedure: Pre-Anesthesia Assessment: - Prior to the procedure, a History and Physical was performed, and patient medications and allergies were reviewed. The patient is competent. The risks and benefits of the procedure and the sedation options and risks were discussed with the patient. All questions were answered and informed consent was obtained. Patient identification and proposed procedure were verified by the physician in the pre-procedure area. Mental Status Examination: alert and oriented. Airway Examination: normal oropharyngeal airway and neck mobility. Respiratory Examination: clear to auscultation. CV Examination: normal. Prophylactic Antibiotics: The patient does not require prophylactic antibiotics. Prior Anticoagulants: The patient has taken no previous anticoagulant or antiplatelet agents. After reviewing the risks and benefits, the patient was deemed in satisfactory condition to undergo the procedure. The anesthesia plan was to use moderate sedation / analgesia (conscious sedation). Immediately prior to administration of medications, the patient was re-assessed for adequacy to receive sedatives. The heart rate, respiratory rate, oxygen saturations, blood pressure, adequacy of pulmonary ventilation, and response to care were monitored throughout the procedure. The physical status of the patient was re-assessed after the procedure. After obtaining informed consent, the endoscope was passed under direct vision. Throughout the procedure, the patient's blood pressure, pulse, and oxygen saturations were monitored continuously. The Colonoscope was introduced through the mouth, and advanced to the second part of duodenum. The upper GI endoscopy was accomplished without difficulty. The patient tolerated the procedure well. Moderate Sedation: Moderate (conscious) sedation was administered by the endoscopy nurse and supervised by the endoscopist. The patient's oxygen saturation, heart rate, blood pressure and response to care were monitored. Total physician intraservice time was 15 minutes. Scope In: 10:13:03 AM Scope Out: 10:22:24 AM Total Procedure Duration Time 0 hours 9 minutes 21 seconds Findings: The examined esophagus was normal. A medium-sized hiatal hernia was present. Evidence of a 270 degree fundoplication was found in the gastric fundus. The wrap appeared loose. This was traversed. Two 5 mm no bleeding angiodysplastic lesions were found in the cardia. Coagulation for bleeding prevention using argon plasma at 0.3 liters/minute and 20 franco was successful. Estimated blood loss was minimal. The third portion of the duodenum was normal. Impression: - Normal esophagus. - Medium-sized hiatal hernia. - A 270 degree fundoplication was found. The wrap appears loose. 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 Treated with argon plasma coagulation (APC). - Normal third portion of the duodenum. - No specimens collected. Recommendation: - Discharge patient to home. - Resume previous diet. - Continue present medications. Procedure Code(s): --- Professional --- 14249, Esophagogastroduodenoscopy, flexible, transoral; with control of bleeding, any method 16704, 59, Moderate sedation services provided by the same physician or other qualified health career development associate performing the diagnostic or therapeutic service that the sedation supports, requiring the presence of an independent trained observer to assist in the monitoring of the patient's level of consciousness and physiological status; initial 15 minutes of intraservice time, patient age 5 years or older CPT copyright 2017 [employer]. All rights reserved. The codes documented in this report are preliminary and upon poultry offal worker review may be revised to meet current compliance requirements. Burt Vaughn DO 08/20/2021 10:49:19 AM This report has been signed electronically. Number of Addenda: 1 Note Initiated On: 08/20/2021 9:58 AM Addendum Number: 1 Addendum Date: 03/06/2022 6:31:08 AM MAC was used as sedation for this procedure. Burt Vaughn DO 03/06/2022 6:31:15 AM This report has been signed electronically.
--- NOTE | 2021-08-20 10:55 | OP.CCLET_ITS ---
03/06/2022 Michelet Trotter [address] [place] [address] Re : Colonoscopy procedure for Alek Blanchard Dear Dr. Trotter This procedure was performed on Friday, August 20, 2021. My impressions and recommendations are as follows: Impressions : - Severe diverticulosis in the recto-sigmoid colon, in the sigmoid colon, in the descending colon and at the splenic flexure. There was no evidence of diverticular bleeding. 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 Biopsied. Recommendations : - Discharge patient to home. - Resume previous diet. - Continue present medications. - Repeat colonoscopy in 5 years for surveillance based on pathology results. - Return to GI office. My findings are described in the full procedure note, which is enclosed. If I can be of further assistance, please feel free to contact me at . Sincerely, Burt Vaughn, 08/20/2021 10:55:22 AM This report has been signed electronically.
--- NOTE | 2021-08-20 10:55 | OP.COLON_ITS ---
Patient Name: Alek Blanchard Procedure Date: 08/20/2021 10:22 AM Date of : 1950 Age: 71 Procedure: Colonoscopy Indications: Iron deficiency anemia Providers: Burt Vaughn DO Medicines: See the Anesthesia note for documentation of the administered medications Patient Profile: This is a 71 year old male. Refer to note in patient chart for documentation of history and physical. Patient has symptoms. He is status post EGD for treatment of bleeding within the past three months. Last Colonoscopy: 5 years ago. Complications: No immediate complications. Procedure: Pre-Anesthesia Assessment: - Prior to the procedure, a History and Physical was performed, and patient medications and allergies were reviewed. The patient is competent. The risks and benefits of the procedure and the sedation options and risks were discussed with the patient. All questions were answered and informed consent was obtained. Patient identification and proposed procedure were verified by the physician in the pre-procedure area. Mental Status Examination: alert and oriented. Airway Examination: normal oropharyngeal airway and neck mobility. Respiratory Examination: clear to auscultation. CV Examination: normal. Prophylactic Antibiotics: The patient does not require prophylactic antibiotics. Prior Anticoagulants: The patient has taken no previous anticoagulant or antiplatelet agents. After reviewing the risks and benefits, the patient was deemed in satisfactory condition to undergo the procedure. The anesthesia plan was to use moderate sedation / analgesia (conscious sedation). Immediately prior to administration of medications, the patient was re-assessed for adequacy to receive sedatives. The heart rate, respiratory rate, oxygen saturations, blood pressure, adequacy of pulmonary ventilation, and response to care were monitored throughout the procedure. The physical status of the patient was re-assessed after the procedure. After I obtained informed consent, the scope was passed under direct vision. Throughout the procedure, the patient's blood pressure, pulse, and oxygen saturations were monitored continuously. The Colonoscope was introduced through the anus and advanced to the cecum, identified by appendiceal orifice and ileocecal valve. The colonoscopy was performed without difficulty. The patient tolerated the procedure well. The quality of the bowel preparation was good. Moderate Sedation: Moderate (conscious) sedation was administered by the endoscopy nurse and supervised by the endoscopist. The patient's oxygen saturation, heart rate, blood pressure and response to care were monitored. Total physician intraservice time was 15 minutes. Moderate (conscious) sedation was administered by the endoscopy nurse and supervised by the endoscopist. The patient's oxygen saturation, heart rate, blood pressure and response to care were monitored. Total physician intraservice time was 15 minutes. Scope In: 10:25:21 AM Scope Out: 10:41:54 AM Total Procedure Duration Time 0 hours 16 minutes 33 seconds Findings: The perianal and digital rectal examinations were normal. Multiple small and large-mouthed diverticula were found in the recto-sigmoid colon, sigmoid colon, descending colon and splenic flexure. There was no evidence of diverticular bleeding. There was a large lipoma, 20 mm in diameter, at the hepatic flexure. Biopsies were taken with a cold forceps for histology. Verification of patient identification for the specimen was done. Estimated blood loss was minimal. Impression: - Severe diverticulosis in the recto-sigmoid colon, in the sigmoid colon, in the descending colon and at the splenic flexure. There was no evidence of diverticular bleeding. 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 Biopsied. Recommendation: - Discharge patient to home. - Resume previous diet. - Continue present medications. - Repeat colonoscopy in 5 years for surveillance based on pathology results. - Return to GI office. Procedure Code(s): --- Professional --- 32956, Colonoscopy, flexible; with biopsy, single or multiple 46533, 59, Moderate sedation services provided by the same physician or other qualified health overnight caregiver performing the diagnostic or therapeutic service that the sedation supports, requiring the presence of an independent trained observer to assist in the monitoring of the patient's level of consciousness and physiological status; initial 15 minutes of intraservice time, patient age 5 years or older [id number], 59, Moderate sedation services provided by the same physician or other qualified health overnight caregiver performing the diagnostic or therapeutic service that the sedation supports, requiring the presence of an independent trained observer to assist in the monitoring of the patient's level of consciousness and physiological status; initial 15 minutes of intraservice time, patient age 5 years or older CPT copyright 2017 [employer] [place] [employer]. All rights reserved. The codes documented in this report are preliminary and upon gasoline locomotive crane operator review may be revised to meet current compliance requirements. Burt Vaughn DO 08/20/2021 10:55:22 AM This report has been signed electronically. Number of Addenda: 1 Note Initiated On: 08/20/2021 10:22 AM Addendum Number: 1 Addendum Date: 03/06/2022 6:31:24 AM MAC was used as sedation for this procedure. Burt Vaughn DO 03/06/2022 6:31:28 AM This report has been signed electronically.
== END 2021-08-20 23:59 | disposition home or self-care (01) ==
LOC: EN 09:06 → AC 09:08
PROVIDERS: PCP Family Medicine; Referring Provider Family Medicine; Visit Provider Internal Medicine Gastroenterology
PROC: 0DJD8ZZ Inspection of Lower Intestinal Tract, Via Natural or Artificial Opening Endoscopic (ICD-10-PCS; CPT 45378; principal; 2021-08-20 10:10)
DX: K31.819 Angiodysplasia of stomach and duodenum without bleeding (principal); K57.30 Diverticulosis of large intestine without perforation or abscess without bleeding; K44.9 Diaphragmatic hernia without obstruction or gangrene; D17.79 Benign lipomatous neoplasm of other sites; K21.9 Gastro-esophageal reflux disease without esophagitis; R73.03 Prediabetes; Z79.899 Other long term (current) drug therapy
CPT/HCPCS: 45380; 43255; 87426; 88305; J7120; J2405

== ENCOUNTER 2021-09-24 07:02 | Outpatient (CLI) | payer MEDICARE, SELFPAY ==
[2021-09-24 07:09] LABS: Bacteria 0 SEEN /hpf (None Seen); Mucous, Urine 0 SEEN /hpf (<or=2+); Red Blood Cells-Urine 0 SEEN /hpf (0-5); Squamous Epithelial Cells - UA 0 SEEN /hpf (0-5); White Blood Cells 0 SEEN /hpf (0-5)
[2021-09-24 10:04] LABS: Absolute Lymphocyte Count 1.59 X10^3/uL (0.83-4.51); Absolute Neutrophil Count 5.4 X10^3/uL (2.0-7.7); Basophil# 0.08 X10^3/uL; Eosinophil# 0.26 X10^3/uL; Eosinophils% 3.2 % (0-5); Hematocrit 41.3 % (40-54); Hemoglobin 13.4 g/dL (13.0-16.5); Lymphocyte # 1.59 X10^3/ul (0.83-4.51); Lymphocyte % 19.6 % (19-41); Mean Corp Hgb Conc 32.4 g/dL (32-36); Mean Corpuscular Hgb 27.5 pg (27.0-32.0); Mean Corpuscular Volume 84.8 fL (80-94); Mean Platelet Vol. 10.4 fl (6.2-12.0); Monocyte# 0.73 X10^3/uL; NRBC Flagged by Analyzer 0 % (0-5); Neutrophil # 5.42 X10^3/uL (2.7-7.7); Neutrophil % 66.7 % (47-70); Platelet Count 285 K/mm3 (150-450); RBC Distribution Width SD 43.1 fl (35.1-43.9); Red Blood Count 4.87 M/mm3 (4.6-6.2); White Blood Count 8.1 K/mm3 (4.4-11.0)
[2021-09-24 10:22] LABS: Hemoglobin A1c 6.3 % (3.8-5.6)
[2021-09-24 10:27] LABS: ALB/GLOB Ratio 0.9 RATIO (0.9-2.4); AST(SGOT) 45 U/L (15-37); Alanine Aminotransfer ALT/SGPT 56 U/L (16-61); Albumin, Serum 3.5 g/dL (3.2-5.0); Alkaline Phosphatase 65 U/L (45-117); Anion Gap 8 (5-15); BUN 22 mg/dL (7-18); BUN/Creat Ratio 19.1 RATIO (10-20); Calcium,Total 8.9 mg/dL (8.5-10.1); Chloride 105 mmol/L (98-107); Creatinine, Serum 1.15 mg/dL (0.70-1.30); EST Glomerular Filtration Rate 67 mL/min (>60); Est Glom Filt Rate - Afr Amer 81 mL/min (>60); Globulin 3.8 g/dL (2.2-4.2); Glucose 127 mg/dL (74-106); Potassium 3.6 mmol/L (3.5-5.1); Protein, Total 7.3 g/dL (6.4-8.2); Sodium Level 138 mmol/L (136-145)
[2021-09-24 10:28] LABS: Color, Urine Yellow (Yellow); Glucose, Dipstick Normal (Normal); Ketone-Dipstick Negative (Negative); Leukocyte Esterase-Dipstick Negative /ul (Negative); Nitrite-Dipstick Negative (Negative); Occult Blood-Urine Negative /ul (Negative); Protein-Dipstick Negative (Negative); Specific Gravity, Urine 1.015 (1.002-1.030); Urine Bilirubin Dipstick Negative (Negative); Urine Clarity Clear (Clear); Urine Urobilinogen Normal (Normal)
== END 2021-09-24 23:59 | disposition home or self-care (01) ==
LOC: MTLAB 07:03
PROVIDERS: PCP Family Medicine; Referring Provider Family Medicine; Visit Provider Family Medicine
DX: I10 Essential (primary) hypertension (principal); R73.02 Impaired glucose tolerance (oral)
CPT/HCPCS: 36415; 80053; 81001; 83036; 85025

== ENCOUNTER → 2021-10-29 | Outpatient (CLI) | payer MEDICARE, SELFPAY ==
[2021-10-29 10:06] LABS: Absolute Lymphocyte Count 1.67 X10^3/uL (0.83-4.51); Absolute Neutrophil Count 4.7 X10^3/uL (2.0-7.7); Basophil# 0.08 X10^3/uL; Basophil% 1.1 % (0-1); Eosinophil# 0.27 X10^3/uL; Eosinophils% 3.6 % (0-5); Hematocrit 45.9 % (40-54); Hemoglobin 14.6 g/dL (13.0-16.5); Lymphocyte # 1.67 X10^3/ul (0.83-4.51); Lymphocyte % 22.6 % (19-41); Mean Corp Hgb Conc 31.8 g/dL (32-36); Mean Corpuscular Hgb 28.8 pg (27.0-32.0); Mean Corpuscular Volume 90.5 fL (80-94); Mean Platelet Vol. 10.7 fl (6.2-12.0); Monocyte# 0.68 X10^3/uL; Monocyte% 9.2 % (0-10); NRBC Flagged by Analyzer 0 % (0-5); Neutrophil # 4.67 X10^3/uL (2.7-7.7); Neutrophil % 63.1 % (47-70); Platelet Count 331 K/mm3 (150-450); RBC Distribution Width CV 13.1 % (11.6-14.6); RBC Distribution Width SD 43.5 fl (35.1-43.9); Red Blood Count 5.07 M/mm3 (4.6-6.2); White Blood Count 7.4 K/mm3 (4.4-11.0)
== END | disposition home or self-care (01) ==
PROVIDERS: PCP Family Medicine; Referring Provider Internal Medicine Gastroenterology; Visit Provider Internal Medicine Gastroenterology
DX: D64.9 Anemia, unspecified (principal)
CPT/HCPCS: 36415; 85025

== ENCOUNTER 2021-10-30 08:55 | Outpatient (CLI) | payer MEDICARE, SELFPAY ==
[2021-10-30 10:32] LABS: International Normalized Ratio 1.1; Prothrombin Time (Protime)PT. 13.4 SECONDS (11.7-14.9)
[2021-10-31 14:10] LABS: Anti-Centromere B Ab <0.2 AI (0.0-0.9); Anti-Chromatin <0.2 AI (0.0-0.9); Anti-Jo <0.2 AI (0.0-0.9); Anti-Scleroderma-70 AB <0.2 AI (0.0-0.9); RNP Ab <0.2 AI (0.0-0.9); SJOGREN'S Anti-SS-A test < 0.2 AI (0.0-0.9); SJOGREN'S Anti-SS-B test < 0.2 AI (0.0-0.9); Smith Ab <0.2 AI (0.0-0.9)
[2021-10-31 15:50] LABS: Anti-Mitochondrial AB <20.0 Units (0.0-20.0); Anti-dsDNA Ab <1 IU/mL (0-9)
[2021-10-31 17:07] LABS: Albumin 3.8 g/dL (2.9-4.4); Alpha-1-Globulins 0.2 g/dL (0.0-0.4); Angiotensin Convert Enzyme 49 U/L (14-82); Cytoplasmic Ab (C-ANCA) <1:20 titer (Neg:<1:20); HEPATITIS B SURFACE AG Negative (Negative); Hep C Antibodies <0.1 s/co ratio (0.0-0.9); Hepatitis A IgM Antibody Negative (Negative); Hepatitis B Core AB IgM Negative (Negative); Immunoglobulin A 336 mg/dL (61-437); Immunoglobulin G 959 mg/dL (603-1613); Immunoglobulin M 39 mg/dL (20-172); PROEL- TOTAL PROTEIN 7.5 g/dL (6.0-8.5)
[2021-10-31 19:44] LABS: AFP, Tumor Marker 2.1 ng/mL (0.0-8.4); Anti-Smooth Muscle ABS 7 Units (0-19); Haptoglobin 258 mg/dL (32-363); Perinuclear Ab (P-ANCA) <1:20 titer (Neg:<1:20)
== END 2021-10-30 23:59 | disposition home or self-care (01) ==
LOC: LAB 08:57
PROVIDERS: PCP Family Medicine; Referring Provider Internal Medicine Gastroenterology; Visit Provider Internal Medicine Gastroenterology
DX: D50.0 Iron deficiency anemia secondary to blood loss (chronic) (principal); R79.89 Other specified abnormal findings of blood chemistry; R74.01 Elevation of levels of liver transaminase levels
CPT/HCPCS: 36415; 80074; 82105; 82164; 82390; 82784; 83010; 83516; 84165; 85610; 86225; 86235; 86256; 86334

== ENCOUNTER → 2021-11-02 | Outpatient (CLI) | payer MEDICARE, SELFPAY ==
[2021-11-02 17:46] LABS: Absolute Lymphocyte Count 1.44 X10^3/uL (0.83-4.51); Absolute Neutrophil Count 5.3 X10^3/uL (2.0-7.7); Basophil% 1.3 % (0-1); Eosinophil# 0.21 X10^3/uL; Eosinophils% 2.7 % (0-5); Hematocrit 42.7 % (40-54); Lymphocyte # 1.44 X10^3/ul (0.83-4.51); Lymphocyte % 18.7 % (19-41); Mean Corp Hgb Conc 32.8 g/dL (32-36); Mean Corpuscular Hgb 29.3 pg (27.0-32.0); Mean Corpuscular Volume 89.3 fL (80-94); Mean Platelet Vol. 10.3 fl (6.2-12.0); Monocyte# 0.66 X10^3/uL; Monocyte% 8.6 % (0-10); NRBC Flagged by Analyzer 0 % (0-5); Neutrophil # 5.27 X10^3/uL (2.7-7.7); Neutrophil % 68.3 % (47-70); Platelet Count 307 K/mm3 (150-450); RBC Distribution Width SD 42.9 fl (35.1-43.9); Red Blood Count 4.78 M/mm3 (4.6-6.2); Reticulocyte Count 1.88 % (0.5-1.5); White Blood Count 7.7 K/mm3 (4.4-11.0)
[2021-11-02 17:58] LABS: Erythrocyte Sedimentation Rate 16 mm/hr (0-20)
[2021-11-02 18:10] LABS: AST(SGOT) 41 U/L (15-37); Alanine Aminotransfer ALT/SGPT 51 U/L (16-61); Albumin, Serum 3.6 g/dL (3.2-5.0); Alkaline Phosphatase 73 U/L (45-117); Anion Gap 7 (5-15); BUN 26 mg/dL (7-18); BUN/Creat Ratio 16.9 RATIO (10-20); CPK Total, Creatine Kinase 142 U/L (39-308); Chloride 106 mmol/L (98-107); Creatinine, Serum 1.54 mg/dL (0.70-1.30); EST Glomerular Filtration Rate 48 mL/min (>60); Est Glom Filt Rate - Afr Amer 58 mL/min (>60); Ferritin 51 ng/mL (26-388); Globulin 3.6 g/dL (2.2-4.2); Glucose 162 mg/dL (74-106); Iron 71 ug/dL (65-175); Iron Binding Capacity,Total 393 ug/dL (250-450); LDH 232 U/L (87-241); Potassium 4.1 mmol/L (3.5-5.1); Protein, Total 7.2 g/dL (6.4-8.2); Sodium Level 138 mmol/L (136-145)
[2021-11-02 18:16] LABS: Hemoglobin A1c 5.8 % (3.8-5.6)
[2021-11-03 09:39] LABS: HIV - WCH Non-Reactive (Nonreactive)
[2021-11-07 09:12] LABS: Copper, Serum or Plasma 74 ug/dL (69-132)
== END | disposition home or self-care (01) ==
LOC: MTLAB 13:59
PROVIDERS: PCP Family Medicine; Referring Provider Internal Medicine Gastroenterology; Visit Provider Internal Medicine Gastroenterology
DX: R79.89 Other specified abnormal findings of blood chemistry (principal); D50.0 Iron deficiency anemia secondary to blood loss (chronic); R74.01 Elevation of levels of liver transaminase levels; D64.9 Anemia, unspecified
CPT/HCPCS: 36415; 80053; 82140; 82525; 82550; 82728; 83036; 83540; 83550; 83615; 85025; 85045; 85652; 86140; 86703

== ENCOUNTER → 2021-11-20 | Outpatient (CLI) | payer MEDICARE, SELFPAY ==
[2021-11-20 08:17] LABS: Bacteria 0 SEEN /hpf (None Seen); Mucous, Urine 0 SEEN /hpf (<or=2+); Red Blood Cells-Urine 0 SEEN /hpf (0-5); Squamous Epithelial Cells - UA 0 SEEN /hpf (0-5); White Blood Cells 0 SEEN /hpf (0-5)
[2021-11-20 10:13] LABS: Color, Urine Yellow (Yellow); Glucose, Dipstick Normal (Normal); Ketone-Dipstick Negative (Negative); Leukocyte Esterase-Dipstick Negative /ul (Negative); Nitrite-Dipstick Negative (Negative); Occult Blood-Urine Negative /ul (Negative); Protein-Dipstick Negative (Negative); Urine Bilirubin Dipstick Negative (Negative); Urine Clarity Clear (Clear); Urine Urobilinogen Normal (Normal)
[2021-11-20 10:14] LABS: Absolute Neutrophil Count 4.2 X10^3/uL (2.0-7.7); Basophil# 0.07 X10^3/uL; Eosinophil# 0.21 X10^3/uL; Hematocrit 42.9 % (40-54); Hemoglobin 13.8 g/dL (13.0-16.5); Lymphocyte % 23.2 % (19-41); Mean Corp Hgb Conc 32.2 g/dL (32-36); Mean Corpuscular Hgb 28.8 pg (27.0-32.0); Mean Corpuscular Volume 89.4 fL (80-94); Mean Platelet Vol. 10.6 fl (6.2-12.0); Monocyte# 0.77 X10^3/uL; Monocyte% 11.1 % (0-10); NRBC Flagged by Analyzer 0 % (0-5); Neutrophil # 4.22 X10^3/uL (2.7-7.7); Neutrophil % 61.1 % (47-70); Platelet Count 309 K/mm3 (150-450); RBC Distribution Width CV 12.7 % (11.6-14.6); RBC Distribution Width SD 41.7 fl (35.1-43.9); White Blood Count 6.9 K/mm3 (4.4-11.0)
[2021-11-20 10:31] LABS: AST(SGOT) 33 U/L (15-37); Alanine Aminotransfer ALT/SGPT 45 U/L (16-61); Albumin, Serum 3.4 g/dL (3.2-5.0); Alkaline Phosphatase 65 U/L (45-117); Anion Gap 6 (5-15); BUN 27 mg/dL (7-18); BUN/Creat Ratio 21.4 RATIO (10-20); Calcium,Total 8.8 mg/dL (8.5-10.1); Chloride 106 mmol/L (98-107); Creatinine, Serum 1.26 mg/dL (0.70-1.30); EST Glomerular Filtration Rate 60 mL/min (>60); Est Glom Filt Rate - Afr Amer 73 mL/min (>60); Globulin 3.4 g/dL (2.2-4.2); Glucose 130 mg/dL (74-106); Potassium 3.6 mmol/L (3.5-5.1); Protein, Total 6.8 g/dL (6.4-8.2); Sodium Level 139 mmol/L (136-145)
[2021-11-20 12:46] LABS: Hemoglobin A1c 5.8 % (3.8-5.6)
== END | disposition home or self-care (01) ==
LOC: MFPLAB 08:13
PROVIDERS: PCP Family Medicine; Referring Provider Family Medicine; Visit Provider Family Medicine
DX: I10 Essential (primary) hypertension (principal); R73.02 Impaired glucose tolerance (oral)
CPT/HCPCS: 36415; 80053; 81001; 83036; 85025

== ENCOUNTER → 2021-11-23 | Outpatient (CLI) | payer MEDICARE, SELFPAY ==
--- NOTE | 2021-11-23 07:26 | US_ITS ---
STUDY: ABDOMINAL ULTRASOUND - ELASTOGRAPHY REASON FOR VISIT: Male, 71 years old. Abnormal liver function tests. TECHNIQUE: Liver stiffness measurements were obtained on a [employer] RS 85 ultrasound machine using a CA 1-7 probe following the SRU guidelines. 3 measurements were obtained using a 2-D-SWE method. The IQR/M was 18% suggesting a quality data set. TECHNICAL QUALITY: Adequate. COMPARISON: Comparison is made with prior examination done earlier today. FINDINGS: Liver: Hepatomegaly and fatty infiltration of the liver. Median liver stiffness measured 11.2 kPa. US/Elastography Parenchyma/Organ IMPRESSION: Liver stiffness measures 11.2 kPa compatible with F2-F3 (Mild to moderate liver fibrosis) Metavir score. Electronically Signed: Trent Polk MD at 8:36 EDT ,
--- NOTE | 2021-11-23 07:26 | US_ITS ---
STUDY: ABDOMINAL ULTRASOUND - RIGHT UPPER QUADRANT REASON FOR VISIT: Male, 71 years old elevated lft TECHNIQUE: Ultrasound evaluation of the right upper quadrant was performed with real-time and static carter-scale imaging. TECHNICAL QUALITY: Adequate. COMPARISON: None. FINDINGS: Liver: The liver is enlarged and measures 19.1 cm. There is increased echogenicity consistent with fatty infiltration. The bile ducts are within normal limits. There is hepatic color flow. The direction of portal flow is hepatopetal. There is no demonstrated mass lesion. Gallbladder: The patient is status post cholecystectomy. Common Bile Duct (C.B.D.): The common bile duct measures 7 mm. Pancreas: There is nonvisualization of the pancreas due to overlying bowel gas. Right Kidney: Normal size of the right kidney. The right kidney measures 11.8 cm x 5.8 cm x 5.3 cm. Normal renal cortex. The right cortex measures 2.2 cm. There is no demonstrated renal mass or cyst. There is no right hydronephrosis. US/Abdomen Limited IMPRESSION: Hepatomegaly and fatty infiltration of the liver. Status post cholecystectomy. Electronically Signed: Trent Polk MD at 8:34 EDT ,
== END | disposition home or self-care (01) ==
PROVIDERS: PCP Family Medicine; Referring Provider Internal Medicine Gastroenterology; Visit Provider Internal Medicine Gastroenterology
DX: R79.89 Other specified abnormal findings of blood chemistry (principal); D50.0 Iron deficiency anemia secondary to blood loss (chronic); R74.01 Elevation of levels of liver transaminase levels
CPT/HCPCS: 76705; 76981

== ENCOUNTER → 2022-03-28 | Outpatient (CLI) | payer MEDICARE, SELFPAY ==
[2022-03-28 09:05] LABS: Bacteria 0 SEEN /hpf (None Seen); Mucous, Urine 0 SEEN /hpf (<or=2+); Red Blood Cells-Urine 0 SEEN /hpf (0-5); White Blood Cells 0 SEEN /hpf (0-5)
[2022-03-28 10:21] LABS: Absolute Lymphocyte Count 1.19 X10^3/uL (0.83-4.51); Absolute Neutrophil Count 5.1 X10^3/uL (2.0-7.7); Basophil# 0.07 X10^3/uL; Eosinophil# 0.17 X10^3/uL; Eosinophils% 2.3 % (0-5); Hematocrit 45.3 % (40-54); Lymphocyte # 1.19 X10^3/ul (0.83-4.51); Lymphocyte % 16.3 % (19-41); Mean Corp Hgb Conc 33.1 g/dL (32-36); Mean Corpuscular Hgb 29.2 pg (27.0-32.0); Mean Corpuscular Volume 88.3 fL (80-94); Mean Platelet Vol. 10.4 fl (6.2-12.0); Monocyte# 0.77 X10^3/uL; Monocyte% 10.6 % (0-10); NRBC Flagged by Analyzer 0 % (0-5); Neutrophil # 5.06 X10^3/uL (2.7-7.7); Neutrophil % 69.5 % (47-70); Platelet Count 299 K/mm3 (150-450); RBC Distribution Width CV 13.3 % (11.6-14.6); RBC Distribution Width SD 43.4 fl (35.1-43.9); Red Blood Count 5.13 M/mm3 (4.6-6.2); White Blood Count 7.3 K/mm3 (4.4-11.0)
[2022-03-28 10:29] LABS: Color, Urine Yellow (Yellow); Glucose, Dipstick Normal (Normal); Ketone-Dipstick Negative (Negative); Leukocyte Esterase-Dipstick Negative /ul (Negative); Nitrite-Dipstick Negative (Negative); Occult Blood-Urine Negative /ul (Negative); Protein-Dipstick Negative (Negative); Specific Gravity, Urine 1.015 (1.002-1.030); Urine Bilirubin Dipstick Negative (Negative); Urine Clarity Sl. Cloudy (Clear); Urine Urobilinogen Normal (Normal)
[2022-03-28 10:37] LABS: Squamous Epithelial Cells - UA 0-5 SEEN /hpf (0-5)
[2022-03-28 10:58] LABS: ALB/GLOB Ratio 0.9 RATIO (0.9-2.4); AST(SGOT) 34 U/L (15-37); Alanine Aminotransfer ALT/SGPT 44 U/L (16-61); Albumin, Serum 3.4 g/dL (3.2-5.0); Alkaline Phosphatase 78 U/L (45-117); Anion Gap 9 (5-15); BUN 20 mg/dL (7-18); Chloride 103 mmol/L (98-107); Cholesterol 153 mg/dL (200); Creatinine, Serum 1.25 mg/dL (0.70-1.30); EST Glomerular Filtration Rate 61 mL/min (>60); Est Glom Filt Rate - Afr Amer 73 mL/min (>60); Globulin 3.8 g/dL (2.2-4.2); Glucose 158 mg/dL (74-106); Hemoglobin A1c 6.4 % (3.8-5.6); High Density Lipoprotein 58 mg/dL; Potassium 3.7 mmol/L (3.5-5.1); Protein, Total 7.2 g/dL (6.4-8.2); Sodium Level 137 mmol/L (136-145); Triglycerides 155 mg/dL; Very Low Density Lipoprotein 31 mg/dL (5-40)
== END | disposition home or self-care (01) ==
LOC: MFPLAB 08:59
PROVIDERS: PCP Family Medicine; Referring Provider Family Medicine; Visit Provider Family Medicine
DX: I10 Essential (primary) hypertension (principal); R73.02 Impaired glucose tolerance (oral); E78.5 Hyperlipidemia, unspecified
CPT/HCPCS: 36415; 80053; 80061; 81001; 83036; 85025

== ENCOUNTER → 2022-08-12 | Outpatient (CLI) | payer MEDICARE, SELFPAY ==
[2022-08-12 08:26] LABS: Bacteria 0 SEEN /hpf (None Seen); Mucous, Urine 0 SEEN /hpf (<or=2+); Red Blood Cells-Urine 0 SEEN /hpf (0-5); Squamous Epithelial Cells - UA 0 SEEN /hpf (0-5); White Blood Cells 0 SEEN /hpf (0-5)
[2022-08-12 09:59] LABS: Absolute Lymphocyte Count 1.56 X10^3/uL (0.83-4.51); Absolute Neutrophil Count 7.9 X10^3/uL (2.0-7.7); Basophil# 0.07 X10^3/uL; Basophil% 0.7 % (0-1); Eosinophil# 0.16 X10^3/uL; Eosinophils% 1.5 % (0-5); Hematocrit 44.9 % (40-54); Hemoglobin 14.3 g/dL (13.0-16.5); Lymphocyte # 1.56 X10^3/ul (0.83-4.51); Lymphocyte % 14.7 % (19-41); Mean Corp Hgb Conc 31.8 g/dL (32-36); Mean Corpuscular Hgb 28.1 pg (27.0-32.0); Mean Corpuscular Volume 88.4 fL (80-94); Mean Platelet Vol. 10.2 fl (6.2-12.0); Monocyte# 0.85 X10^3/uL; NRBC Flagged by Analyzer 0.2 % (0-5); Neutrophil # 7.92 X10^3/uL (2.7-7.7); Neutrophil % 74.8 % (47-70); Platelet Count 326 K/mm3 (150-450); RBC Distribution Width CV 12.8 % (11.6-14.6); RBC Distribution Width SD 41.6 fl (35.1-43.9); Red Blood Count 5.08 M/mm3 (4.6-6.2); White Blood Count 10.6 K/mm3 (4.4-11.0)
[2022-08-12 10:01] LABS: Color, Urine Yellow (Yellow); Glucose, Dipstick Normal (Normal); Ketone-Dipstick Negative (Negative); Leukocyte Esterase-Dipstick Negative /ul (Negative); Nitrite-Dipstick Negative (Negative); Occult Blood-Urine Negative /ul (Negative); Protein-Dipstick Negative (Negative); Urine Bilirubin Dipstick Negative (Negative); Urine Clarity Clear (Clear); Urine Urobilinogen Normal (Normal)
[2022-08-12 10:16] LABS: ALB/GLOB Ratio 0.9 RATIO (0.9-2.4); AST(SGOT) 37 U/L (15-37); Alanine Aminotransfer ALT/SGPT 51 U/L (16-61); Albumin, Serum 3.6 g/dL (3.2-5.0); Alkaline Phosphatase 75 U/L (45-117); Anion Gap 11 (5-15); BUN 18 mg/dL (7-18); BUN/Creat Ratio 14.2 RATIO (10-20); Calcium,Total 9.1 mg/dL (8.5-10.1); Chloride 101 mmol/L (98-107); Cholesterol 172 mg/dL (200); Creatinine, Serum 1.27 mg/dL (0.70-1.30); EST Glomerular Filtration Rate 60 mL/min (>60); Est Glom Filt Rate - Afr Amer 72 mL/min (>60); Globulin 3.9 g/dL (2.2-4.2); Glucose 175 mg/dL (74-106); High Density Lipoprotein 61 mg/dL; Potassium 3.7 mmol/L (3.5-5.1); Protein, Total 7.5 g/dL (6.4-8.2); Sodium Level 137 mmol/L (136-145); Triglycerides 248 mg/dL; Very Low Density Lipoprotein 50 mg/dL (5-40)
[2022-08-12 10:37] LABS: Hemoglobin A1c 6.7 % (3.8-5.6)
== END | disposition home or self-care (01) ==
LOC: MFPLAB 08:24
PROVIDERS: PCP Family Medicine; Visit Provider Family Medicine
DX: I10 Essential (primary) hypertension (principal); R73.02 Impaired glucose tolerance (oral); E78.5 Hyperlipidemia, unspecified
CPT/HCPCS: 36415; 80053; 80061; 81001; 83036; 85025

== ENCOUNTER → 2022-12-02 | Outpatient (CLI) | payer MEDICARE, SELFPAY ==
--- NOTE | 2022-12-02 07:46 | US_ITS ---
STUDY: ABDOMINAL ULTRASOUND - ELASTOGRAPHY REASON FOR VISIT: Male, 72 years old. Fatty infiltration liver. TECHNIQUE: Liver stiffness measurements were obtained on a [employer] RS 85 ultrasound machine using a CA 1-7 probe following the SRU guidelines. 3 measurements were obtained using a 2-D-SWE method. TheIQR/M was 20% suggesting a quality data set. TECHNICAL QUALITY: Adequate. COMPARISON: Comparison is made with prior study dated November 23, 2021. FINDINGS: Liver: There is no demonstrated mass lesion. Median liver stiffness measured 8.3 kPa. Abdomen: There is no demonstrated mass lesion. US/Elastography Parenchyma/Organ IMPRESSION: Liver stiffness measures 8.3 kPa compatible with F2-F3 (Mild to moderate liver fibrosis) Metavir score. Electronically Signed: Trent Polk MD at 9:13 EDT ,
--- NOTE | 2022-12-02 07:46 | US_ITS ---
STUDY: ABDOMINAL ULTRASOUND - RIGHT UPPER QUADRANT REASON FOR VISIT: Male, 72 years old fatty liver -- w/ elastography TECHNIQUE: Ultrasound evaluation of the right upper quadrant was performed with real-time and static carter-scale imaging. TECHNICAL QUALITY: Adequate. COMPARISON: Comparison is made with prior study dated November 23, 2021. FINDINGS: Liver: The liver is enlarged and measures 19 cm. There is increased echogenicity consistent with fatty infiltration. The bile ducts are within normal limits. There is hepatic color flow. The direction of portal flow is hepatopetal. There is no demonstrated mass lesion. Gallbladder: The patient is status post cholecystectomy. Common Bile Duct (C.B.D.): The common bile duct measures 4.3 mm. Pancreas: There is nonvisualization of the pancreas due to overlying bowel gas. Right Kidney: Normal size of the right kidney. The right kidney measures 11.2 cm x 6.3 cm x 6 cm. Normal renal cortex. The right cortex measures 1.1 cm. There is no demonstrated renal mass or cyst. There is no right hydronephrosis. US/Abdomen Limited IMPRESSION: Hepatomegaly and fatty infiltration of the liver. The patient is status post cholecystectomy. Electronically Signed: Trent Polk MD at 8:49 EDT ,
== END | disposition home or self-care (01) ==
LOC: US 07:45
PROVIDERS: PCP Family Medicine; Referring Provider Nurse Practitioner Adult Health; Visit Provider Nurse Practitioner Adult Health
DX: K76.0 Fatty (change of) liver, not elsewhere classified (principal)
CPT/HCPCS: 76705; 76981

== ENCOUNTER → 2022-12-05 | Outpatient (CLI) | payer MEDICARE, SELFPAY ==
[2022-12-05 10:23] LABS: Absolute Lymphocyte Count 1.63 X10^3/uL (0.83-4.51); Absolute Neutrophil Count 4.7 X10^3/uL (2.0-7.7); Basophil# 0.08 X10^3/uL; Basophil% 1.1 % (0-1); Eosinophil# 0.16 X10^3/uL; Eosinophils% 2.2 % (0-5); Hematocrit 42.6 % (40-54); Hemoglobin 13.9 g/dL (13.0-16.5); Lymphocyte # 1.63 X10^3/ul (0.83-4.51); Lymphocyte % 22.4 % (19-41); Mean Corp Hgb Conc 32.6 g/dL (32-36); Mean Corpuscular Hgb 28.3 pg (27.0-32.0); Mean Corpuscular Volume 86.8 fL (80-94); Mean Platelet Vol. 10.8 fl (6.2-12.0); Monocyte# 0.75 X10^3/uL; Monocyte% 10.3 % (0-10); NRBC Flagged by Analyzer 0 % (0-5); Neutrophil # 4.65 X10^3/uL (2.7-7.7); Neutrophil % 63.7 % (47-70); Platelet Count 292 K/mm3 (150-450); RBC Distribution Width CV 13.4 % (11.6-14.6); RBC Distribution Width SD 42.7 fl (35.1-43.9); Red Blood Count 4.91 M/mm3 (4.6-6.2); White Blood Count 7.3 K/mm3 (4.4-11.0)
[2022-12-05 10:46] LABS: Microalbumin,Random Urine 5.8 mg/L (NO RANGE EST.); Microalbumin:Creatinine Ratio 8.7 mg/g CRE (<30 mg/g CRE)
[2022-12-05 10:47] LABS: ALB/GLOB Ratio 0.9 RATIO (0.9-2.4); AST(SGOT) 39 U/L (15-37); Alanine Aminotransfer ALT/SGPT 43 U/L (16-61); Albumin, Serum 3.5 g/dL (3.2-5.0); Alkaline Phosphatase 71 U/L (45-117); Anion Gap 9 (5-15); BUN 24 mg/dL (7-18); Calcium,Total 9.1 mg/dL (8.5-10.1); Chloride 104 mmol/L (98-107); Cholesterol 159 mg/dL (200); EST Glomerular Filtration Rate 64 mL/min (>60); Est Glom Filt Rate - Afr Amer 77 mL/min (>60); Globulin 3.9 g/dL (2.2-4.2); Glucose 142 mg/dL (74-106); High Density Lipoprotein 56 mg/dL; Platelet Count 312 K/mm3 (150-450); Potassium 3.8 mmol/L (3.5-5.1); Protein, Total 7.4 g/dL (6.4-8.2); RET-HE 32.4 pg (30-35); Reticulocyte Count 1.63 % (0.5-1.5); Sodium Level 137 mmol/L (136-145); Triglycerides 195 mg/dL; Very Low Density Lipoprotein 39 mg/dL (5-40)
[2022-12-05 10:55] LABS: Iron 115 ug/dL (65-175); Iron Binding Capacity,Total 401 ug/dL (250-450)
[2022-12-05 10:58] LABS: Hemoglobin A1c 6.4 % (3.8-5.6)
== END | disposition home or self-care (01) ==
PROVIDERS: Internal Medicine Gastroenterology; PCP Family Medicine; Referring Provider Family Medicine; Visit Provider Family Medicine
DX: E11.65 Type 2 diabetes mellitus with hyperglycemia (principal); D64.9 Anemia, unspecified; R79.89 Other specified abnormal findings of blood chemistry
CPT/HCPCS: 36415; 80053; 80061; 82043; 82570; 83036; 83540; 83550; 85025; 85045

== ENCOUNTER → 2023-05-19 | Outpatient (CLI) | payer MEDICARE, SELFPAY ==
--- NOTE | 2023-05-19 09:14 | US_ITS ---
STUDY: ABDOMINAL ULTRASOUND - RIGHT UPPER QUADRANT; ELASTOGRAPHY REASON FOR VISIT: Male, 73 years old. NAFLD TECHNIQUE: Ultrasound evaluation of the right upper quadrant was performed with real-time and static carter-scale imaging. Point quantification shear wave elastography was performed ([employer]). TECHNICAL QUALITY: Adequate. COMPARISON: None. FINDINGS: Liver: The liver is enlarged and measures 19.1 cm. There is increased echogenicity consistent with fatty infiltration. The bile ducts are within normal limits. There is hepatic color flow. The direction of portal flow is hepatopetal. There is no demonstrated mass lesion. Median liver stiffness measured 9.1 kPa. Gallbladder: The patient is status post cholecystectomy. Common Bile Duct (C.B.D.): The common bile duct measures 3.7 mm. Pancreas: The pancreas is not visualized due to overlying bowel gas. Right Kidney: Normal size of the right kidney. The right kidney measures 10.7 cm x 5.1 cm x 5.4 cm. Normal renal cortex. The right cortex measures 1.4 cm. There is no demonstrated renal mass or cyst. There is no right hydronephrosis. US/ABD Limited w/ Elastography IMPRESSION: 1. Liver stiffness measures 9.1 kPa compatible with F2-F3 (Mild to moderate liver fibrosis) Metavir score. Electronically Signed: Trent Polk MD at 10:16 EST ,
== END | disposition home or self-care (01) ==
LOC: US 09:14
PROVIDERS: PCP Family Medicine; Referring Provider Internal Medicine Gastroenterology; Visit Provider Internal Medicine Gastroenterology
DX: K76.0 Fatty (change of) liver, not elsewhere classified (principal)
CPT/HCPCS: 76705; 76981

== ENCOUNTER → 2023-05-26 | Outpatient (CLI) | payer MEDICARE, SELFPAY ==
[2023-05-26 07:20] LABS: Bacteria 0 SEEN /hpf (None Seen); Mucous, Urine 0 SEEN /hpf (<or=2+); Red Blood Cells-Urine 0 SEEN /hpf (0-5); Squamous Epithelial Cells - UA 0 SEEN /hpf (0-5); White Blood Cells 0 SEEN /hpf (0-5)
[2023-05-26 10:52] LABS: Absolute Lymphocyte Count 1.43 X10^3/uL (0.83-4.51); Absolute Neutrophil Count 4.9 X10^3/uL (2.0-7.7); Basophil# 0.06 X10^3/uL; Basophil% 0.8 % (0-1); Eosinophil# 0.18 X10^3/uL; Eosinophils% 2.5 % (0-5); Hematocrit 43.5 % (40-54); Hemoglobin 14.1 g/dL (13.0-16.5); Lymphocyte # 1.43 X10^3/ul (0.83-4.51); Lymphocyte % 19.8 % (19-41); Mean Corp Hgb Conc 32.4 g/dL (32-36); Mean Corpuscular Hgb 28.6 pg (27.0-32.0); Mean Corpuscular Volume 88.2 fL (80-94); Mean Platelet Vol. 10.5 fl (6.2-12.0); Monocyte# 0.64 X10^3/uL; Monocyte% 8.9 % (0-10); NRBC Flagged by Analyzer 0 % (0-5); Neutrophil # 4.89 X10^3/uL (2.7-7.7); Neutrophil % 67.6 % (47-70); Platelet Count 306 K/mm3 (150-450); RBC Distribution Width CV 12.4 % (11.6-14.6); RBC Distribution Width SD 40.2 fl (35.1-43.9); Red Blood Count 4.93 M/mm3 (4.6-6.2); White Blood Count 7.2 K/mm3 (4.4-11.0)
[2023-05-26 11:07] LABS: Color, Urine Yellow (Yellow); Glucose, Dipstick 50 mg/dl (Normal); Ketone-Dipstick Negative (Negative); Leukocyte Esterase-Dipstick Negative /ul (Negative); Nitrite-Dipstick Negative (Negative); Occult Blood-Urine Negative /ul (Negative); Protein-Dipstick 15 mg/dl (Negative); Specific Gravity, Urine 1.025 (1.002-1.030); Urine Bilirubin Dipstick Negative (Negative); Urine Clarity Clear (Clear); Urine Urobilinogen Normal (Normal)
[2023-05-26 11:29] LABS: AST(SGOT) 20 U/L (15-37); Alanine Aminotransfer ALT/SGPT 22 U/L (16-61); Albumin, Serum 3.4 g/dL (3.2-5.0); Alkaline Phosphatase 66 U/L (45-117); Anion Gap 8 (5-15); BUN 25 mg/dL (7-18); BUN/Creat Ratio 20.7 RATIO (10-20); Calcium,Total 8.9 mg/dL (8.5-10.1); Chloride 105 mmol/L (98-107); Cholesterol 135 mg/dL (200); Creatinine, Serum 1.21 mg/dL (0.70-1.30); EST Glomerular Filtration Rate 63 mL/min (>60); Est Glom Filt Rate - Afr Amer 76 mL/min (>60); Globulin 3.5 g/dL (2.2-4.2); Glucose 115 mg/dL (74-106); High Density Lipoprotein 61 mg/dL; Potassium 3.5 mmol/L (3.5-5.1); Protein, Total 6.9 g/dL (6.4-8.2); Sodium Level 140 mmol/L (136-145); Triglycerides 153 mg/dL; Very Low Density Lipoprotein 31 mg/dL (5-40)
[2023-05-26 14:17] LABS: Hemoglobin A1c 5.9 % (3.8-5.6)
== END | disposition home or self-care (01) ==
LOC: MTLAB 07:11
PROVIDERS: PCP Family Medicine; Referring Provider Family Medicine; Visit Provider Family Medicine
DX: E11.59 Type 2 diabetes mellitus with other circulatory complications (principal)
CPT/HCPCS: 36415; 80053; 80061; 81001; 83036; 85025

== ENCOUNTER → 2023-07-29 | Outpatient (CLI) | payer MEDICARE, SELFPAY ==
[2023-07-29 15:35] LABS: Bacteria 0 SEEN /hpf (None Seen); Mucous, Urine 0 SEEN /hpf (<or=2+); Red Blood Cells-Urine 0 SEEN /hpf (0-5)
[2023-07-29 18:02] LABS: Absolute Lymphocyte Count 0.82 X10^3/uL (0.83-4.51); Absolute Neutrophil Count 4.8 X10^3/uL (2.0-7.7); Basophil# 0.08 X10^3/uL; Basophil% 1.2 % (0-1); Color, Urine Yellow (Yellow); Eosinophils% 3.1 % (0-5); Glucose, Dipstick Normal (Normal); Hematocrit 37.6 % (40-54); Hemoglobin 12.4 g/dL (13.0-16.5); Ketone-Dipstick Negative (Negative); Leukocyte Esterase-Dipstick 25 /ul (Negative); Lymphocyte # 0.82 X10^3/ul (0.83-4.51); Lymphocyte % 12.5 % (19-41); Mean Corpuscular Hgb 28.8 pg (27.0-32.0); Mean Corpuscular Volume 87.2 fL (80-94); Mean Platelet Vol. 11.7 fl (6.2-12.0); Monocyte# 0.63 X10^3/uL; Monocyte% 9.6 % (0-10); NRBC Flagged by Analyzer 0 % (0-5); Neutrophil # 4.78 X10^3/uL (2.7-7.7); Neutrophil % 73.1 % (47-70); Nitrite-Dipstick Negative (Negative); Occult Blood-Urine Negative /ul (Negative); Platelet Count 326 K/mm3 (150-450); Protein-Dipstick 15 mg/dl (Negative); RBC Distribution Width CV 15.6 % (11.6-14.6); RBC Distribution Width SD 49.4 fl (35.1-43.9); Red Blood Count 4.31 M/mm3 (4.6-6.2); Specific Gravity, Urine 1.015 (1.002-1.030); Urine Clarity Clear (Clear); Urine Urobilinogen 4 mg/dl (Normal); White Blood Count 6.5 K/mm3 (4.4-11.0)
[2023-07-29 18:12] LABS: Urine Bilirubin Dipstick 3 mg/dL (Negative)
[2023-07-29 18:23] LABS: Squamous Epithelial Cells - UA 0-5 SEEN /hpf (0-5); White Blood Cells 0-5 SEEN /hpf (0-5)
[2023-07-29 18:47] LABS: AST(SGOT) 289 U/L (15-37); Alanine Aminotransfer ALT/SGPT 407 U/L (16-61); Albumin, Serum 3.2 g/dL (3.2-5.0); Alkaline Phosphatase 498 U/L (45-117); Anion Gap 9 (5-15); BUN 32 mg/dL (7-18); BUN/Creat Ratio 20.5 RATIO (10-20); Calcium,Total 9.2 mg/dL (8.5-10.1); Chloride 102 mmol/L (98-107); Creatinine, Serum 1.56 mg/dL (0.70-1.30); EST Glomerular Filtration Rate 47 mL/min (>60); Est Glom Filt Rate - Afr Amer 57 mL/min (>60); Globulin 3.8 g/dL (2.2-4.2); Glucose 160 mg/dL (74-106); Potassium 3.3 mmol/L (3.5-5.1); Sodium Level 135 mmol/L (136-145)
--- OUTSIDE RECORDS SUMMARY | 2023-07-29 20:21 | XMS RPT_ITS | CCD ---
Author Name Unknown Address [address] [place] [id number] Organization [facility] Results Test Name Value Interpretation Reference Range Facil ity Progress note 05-07-2021 Note Date & Type Note Facility 05-07-2021 Note HNO ID: [id number] Author: Jarrett Martinez MD Service: ? Author Type: Physician Type: Progress Notes Filed: 05/07/2021 11:34 AM Note Text: ASSESSMENT/PLAN: 1. Combined forms of age-related cataract of left eye - ICD9: 366.19, ICD10: H25.812 (primary diagnosis) - Patient is satisfied with his vision at this time - Monitor 2. Pseudophakia, right eye - ICD9: V43.1, ICD10: Z96.1 - Intraocular lens in good position right eye 3. Essential hypertension - ICD9: 401.9, ICD10: I10 - Continue to monitor with primary care physician Jarrett Martinez MD I have confirmed and edited as necessary the relevant ophthalmic history, review of systems, surgical history, and ophthalmological examination findings as obtained by the ophthalmic technical staff. I have seen and examined Kristin Lara. I have discussed the examination findings, diagnosis, and treatment options with Kristin Lara and/or his family. I have also reviewed and agree with the assessment and plan as stated above and agree with all its relevant components. I gave the patient the opportunity to ask questions about the findings, diagnosis, and treatment options. [facility] Progress note 11-03-2020 Note Date & Type Note Facility 11-03-2020 Note HNO ID: [id number] Author: Jarrett Martinez MD Service: ? Author Type: Physician Type: Progress Notes Filed: 11/03/2020 11:22 AM Note Text: ASSESSMENT/PLAN: 1. Status post cataract extraction and insertion of intraocular lens of right eye - ICD9: V45.61, V43.1, ICD10: Z98.41, Z96.1 (primary diagnosis) Use medications as directed: Current Ophthalmic Meds keTORolac (ACULAR) 0.5 % ophthalmic solution Use 1 Drop in the right eye four times daily. prednisoLONE acetate (PRED FORTE, ECONOPRED PLUS) 1 % ophthalmic suspension Use 1 Drop in the right eye four times daily. Systane Complete Artificial Tears - Use 1 Drop into both eyes three times a day. Follow up in one week with Dr. Ronni Shane 2. Combined forms of age-related cataract of left eye - ICD9: 366.19, ICD10: H25.812 Patient would like to hold off on surgery at this time 3. Essential hypertension - ICD9: 401.9, ICD10: I10 Continue care with primary care physician Jarrett Martinez MD I have confirmed and edited as necessary the relevant ophthalmic history, review of systems, surgical history, and ophthalmological examination findings as obtained by the ophthalmic technical staff. I have seen and examined Kristin Lara. I have discussed the examination findings, diagnosis, and treatment options with Kristin Lara and/or his family. I have also reviewed and agree with the assessment and plan as stated above and agree with all its relevant components. I gave the patient the opportunity to ask questions about the findings, diagnosis, and treatment options. [facility] Clinical Note 11-02-2020 Note Date & Type Note Facility 11-02-2020 Note Post Operative Note: Post-Procedure Diagnosis: 1. Combined Form Age Related Cataract Right Eye Procedure: 1. Cataract Extraction with Intraocular Lens Implant Right Eye Surgeon: Jarrett Martinez MD Resident/Fellow/Other Aircraft De Icer Installer: None Estimated Blood Loss (mL): none Specimen: no Findings: 1. Combined Form Age Related Cataract Right Eye Operative Report Dictated: Dictation: not applicable - note contains Operative Report Operative Report: The patient was correctly identified and the patient's operative eye was marked with a marking pen and verified with the patient in the pre-operative area. The operative eye was dilated in the preoperative area. The patient was then taken to the operating room where timeout was performed before starting the procedure. Combined anesthesia with intravenous sedation and topical tetracaine eyedrops were instilled into the right eye. The operative eye was prepped and draped in the standard sterile ophthalmic fashion in preparation for ophthalmic surgery. A Mauro wire speculum was then inserted between the eyelids of the right eye and the operating microscope was placed over the right eye. A paracentesis incision was made approximately 30 away from the planned surgical incision site with the help of MVR blade. 1% lidocaine MPF with Phenylephrine 1.5% PF was injected into the anterior chamber through the paracentesis incision. A near limbal clear corneal incision was fashioned in the temporal quadrant just outside the vascular arcade and Viscoat was injected into anterior chamber to firm the eye. A bent needle cystotome was used and Utrata forceps were utilized to create a continuous curvilinear capsulorrhexis. BSS was injected beneath the anterior capsule to hydrodissect the nucleus from adjacent cortex and capsule. The residual cortex was then aspirated with irrigation/aspiration handpiece. The posterior capsule was then polished with the help of soft irrigation-aspiration tip. Provisc viscoelastic was then injected into the eye to reform the anterior chamber and to open the capsular bag. The intraocular lens implant was taken from its sterile wrapping, inspected under the surgical microscope and found to be in good condition. The intraocular lens implant 16.0D was injected into the capsule bag. The Provisc was then aspirated from the anterior chamber and from behind the intraocular lens implant. The anterior chamber was inflated with the help of BSS to moderate tension. And the edges of the surgical incision were then hydrated with the help of BSS. Vigamox was then injected into the anterior chamber and into the capsule bag through the paracentesis incision. The surgical wound was then inspected and found to be watertight. The wire speculum and drapes were then removed. Pred Forte eyedrops, Acular eyedrops and Betadine 5% sterile ophthalmic solution were instilled in the conjunctival sac. The patient tolerated the procedure well and was taken to recovery room in stable condition. Signature/Cosignature/Attestation: Note Completion: Attending AttestationI performed the procedure without a resident Electronic Signatures: Jarrett Martinez) (Signed 02-Nov-2020 14:00) Authored: Post Operative Note, Note Completion Last Updated: 02-Nov-2020 14:00 by Jarrett Martinez) [facility] Clinical Note 11-02-2020 Note Date & Type Note Facility 11-02-2020 Note History & Physical R eviewed: I have reviewed the History and Physical dated: 17-Oct-2020 History and Physical reviewed and relevant findings noted. Patient examined to review pertinent physical findings.: No significant changes Home Medications Reviewed: no changes noted Allergies Reviewed: no changes noted ERAS (Enhanced Recovery After Surgery): ERAS Patient: no Consent: COVID-19 Consent: COVID-19 Risk ConsentSurgeon has reviewed reyes risks related to the risk of prerna COVID-19 and if they contract COVID-19 what the risks are. Signatures/Attestation: Note Completion: Attending Provider Inpatient Certification StatementObservation patient/other outpatient visits Electronic Signatures: Jarrett Martinez) (Signed 02-Nov-2020 12:40) Authored: History & Physical Reviewed, ERAS, Consent, Note Completion Last Updated: 02-Nov-2020 12:40 by Jarrett Martinez) [facility] Progress note 10-17-2020 Note Date & Type Note Facility 10-17-2020 Note HNO ID: [id number] Author: Jarrett Martinez MD Service: ? Author Type: Physician Type: Progress Notes Filed: 10/17/2020 2:25 PM Note Text: ASSESSMENT/PLAN: 1. Combined forms of age-related cataract of right eye - ICD9: 366.19, ICD10: H25.811 (primary diagnosis) Cataract Presurgical Documentation Cataract: Both Eyes Patient reported symptoms: Associated symptoms Positive for: Blurred Vision, decreased vision, floaters, difficulty with reading, difficulty with watching television, dryness, halos, glare, starbursts Negative for: Eye Redness, foreign body sensation, itching, flashes, tearing Current Visual Acuity: Right Eye Distance CC 20/60 Left Eye Distance CC 20/50 Visual Function: Kristin Lara states that the decline in vision from the cataract impedes the ability to read small print and watch television as well as other activities of daily living. Kristin Lara has confirmed that he is no longer able to function adequately on a day-to-day basis because of his current visual condition. Further, it is my medical opinion that the cataract is the primary cause, or at least a significantly contributory cause of his visual dysfunction. With uncomplicated cataract surgery and lens implantation, it is my expectation that his visual function and quality of life will improve, significantly. The risks, benefits, alternatives, personnel and complications of cataract surgery with lens implantation were discussed with Kristin Lara in detail. He appeared to understand and asked that I proceed with plans for surgery. Patient wishes to have traditional cataract surgery with basic Intraocular lens Right Eye. Patient wishes to have cataract surgery with the option stated above. Patient understands that an intraocular lens implant does not necessarily replace the need for glasses. Patient understands that it is impossible for the surgeon to inform him/her of every possible complication that may occur. The surgeon has answered all of the patient's questions. Patient understands that if he/she has a mature or dense cataract, pseudoexfoliation cataract, or history of use of Flomax, he/she may require the use of Maluyugin Ring and/or Vision Blue during surgery. Patient understands the risks, benefits, and alternatives to surgery. Order placed for COVID-19 testing to be done at [facility]. Hospital to contact patient with date and time. Patient educated on Toric intraocular lens implant. Patient declines and wished to proceed with monofocal intraocular lens implant. Traditional Cataract Surgery with Intraocular Lens Implant Right Eye scheduled for 11/02/2020 at [facility]. PHYSICAL EXAM: Vital Signs: Blood pressure 139/94, pulse 109. Respiratory: Normal breath sounds, no wheezing. CARD: Normal heart sounds 1 AND 2, normal sinus rhythm. 2. Combined forms of age-related cataract of left eye - ICD9: 366.19, ICD10: H25.812 Traditional Cataract Surgery with Intraocular Lens Implant Left Eye after Right Eye is stable. 3. Punctate keratitis of both eyes - ICD9: 370.21, ICD10: H16.143 Current Ophthalmic Meds fluorometholone (FML LIQUID FILM) 0.1 % ophthalmic suspension Use 1 Drop in both eyes three times daily. Continue: Systane Complete solution instill 1 drop 3 times daily Both Eyes. 4. Essential hypertension - ICD9: 401.9, ICD10: I10 Continue to monitor with primary care physician. Jarrett Martinez MD I have confirmed and edited as necessary the relevant ophthalmic history, review of systems, surgical history, and ophthalmological examination findings as obtained by the ophthalmic technical staff. I have seen and examined Kristin Lara. I have discussed the examination findings, diagnosis, and treatment options with Kristin Lara and/or his family. I have also reviewed and agree with the assessment and plan as stated above and agree with all its relevant components. I gave the patient the opportunity to ask questions about the findings, diagnosis, and treatment options. [facility] Progress note 10-02-2020 Note Date & Type Note Facility 10-02-2020 Note HNO ID: [id number] Author: Jarrett Martinez Service: ? Author Type: Physician Type: Progress Notes Filed: 10/02/2020 10:49 AM Note Text: I have reviewed notes from Dr. Sharan Shane on Kristin Lara at today's examination. Patient Education on Traditional Cataract Surgery with TORIC lens implant vs. Traditional Cataract Surgery with mono focal lens implant. Patient viewed TORIC Intraocular lens implant Cataract Surgery video. ASSESSMENT/PLAN: 1. Combined forms of age-related cataract of right eye - ICD9: 366.19, ICD10: H25.811 (primary diagnosis) 2. Regular astigmatism of right eye - ICD9: 367.21, ICD10: H52.221 - IOL BIOMETRY W/ IOL CALC OU (BOTH EYES) Plan cataract surgery of the right eye at a later date, patient would like to discuss surgical options with his spouse before proceeding to schedule. 3. Combined forms of age-related cataract of left eye - ICD9: 366.19, ICD10: H25.812 4. Regular astigmatism of left eye - ICD9: 367.21, ICD10: H52.222 Plan cataract surgery of the left eye at a later date. 5. Punctate keratitis of both eyes - ICD9: 370.21, ICD10: H16.143 Systane Complete Artificial Tears - Use 1 Drop into both eyes three times a day. Current Ophthalmic Meds fluorometholone (FML LIQUID FILM) 0.1 % ophthalmic suspension Use 1 Drop in both eyes three times daily. 6. Myopia, bilateral - ICD9: 367.1, ICD10: H52.13 Prism: Right eye 1.25 base up Left eye 1.75 base up 7. Essential hypertension - ICD9: 401.9, ICD10: I10 Continue care with your primary care provider as directed. Vital Signs: Blood pressure 139/94, pulse 109. Jarrett Martinez MD I have confirmed and edited as necessary the relevant ophthalmic history, review of systems, surgical history, and ophthalmological examination findings as obtained by the ophthalmic technical staff. I have seen and examined Kristin Lara. I have discussed the examination findings, diagnosis, and treatment options with Kristin Lara and/or his family. I have also reviewed and agree with the assessment and plan as stated above and agree with all its relevant components. I gave the patient the opportunity to ask questions about the findings, diagnosis, and treatment options. [facility] Summary Purpose Family History No Family History Records FoundNo Family History Records FoundNo Family History Records Found Advance Directives No Advanced Directives Records FoundNo Advanced Directives Records FoundNo Advanced Directives Records Found Additional Source Comments (unrecognized sect ion and content) No Status Records FoundNo Status Records FoundNo Status Records Found INFORMATION SOURCE (unrecogn ized section and content) DATE CREATED AUTHOR AUTHOR'S ORGANIZ ATION 11/10/2020 [facility] DATE CREATED AUTHOR AUTHOR'S ORGANIZ ATION 07/09/2021 [facility] FOR RECORDS PERTAINING TO PATIENTS WHO ARE OR HAVE BEEN ENROLLED IN A CHEMICAL DEPENDENCY/SUBSTANCEABUSE PROGRAM, SOME INFORMATION MAY BE OMITTED. This clinical summary was aggregated from multiple sources. Caution should be exercised in using it in the provision of clinical care. This summary normalizes information from multiple sources, and as a consequence, information in this document may materially change the coding, format and clinical context of patient data. In addition, data may be omitted in some cases. CLINICAL DECISIONS SHOULD BE BASED ON THE PRIMARY CLINICAL RECORDS. [facility]. provides no warranty or guarantee of the accuracy or completeness of information in this document.
== END | disposition home or self-care (01) ==
LOC: MFPLAB 15:33
PROVIDERS: PCP Family Medicine; Visit Provider Family Medicine
DX: R17 Unspecified jaundice (principal)
CPT/HCPCS: 36415; 80048; 80076; 81001; 85025

== ENCOUNTER → 2023-07-30 | Outpatient (CLI) | payer MEDICARE, SELFPAY ==
--- NOTE | 2023-07-30 12:18 | CT_ITS ---
STUDY: CT ABDOMEN AND PELVIS WITH CONTRAST REASON FOR EXAM: Male, 73 years old. One week history of jaundice. RADIATION DOSAGE (If Supplied By Facility): CTDIvol = ( 19.05 ) mGy, DLP = ( 1204.98 ) mGycm TECHNIQUE: Transaxial images were obtained from the dome of the diaphragm to the symphysis pubis with oral contrast. Oral and amp; IV Gastrografin and amp; 75mL Isovue-300 was administered. Sagittal and coronal images were reconstructed. Individualized dose optimization techniques were used for this CT. COMPARISON: None. FINDINGS: The visualized lung bases are unremarkable. The visualized portions of the heart are within normal limits. Moderate degree of the intrahepatic biliary ductal dilatation. There is dilatation of the common bile duct. It measures 1.4 cm in transverse dimension. The distal portion of the common bile duct is not well visualized. There are surgical clips in the gallbladder fossa consistent with a prior cholecystectomy. Normal spleen. I suspect a 3.5 cm x 2.6 cm mass in the head of the pancreas. There is diffuse atrophy of the pancreas. There is diffuse irregular pancreatic ductal dilatation. Correlation with ERCP is recommended to rule out obstruction of the distal portion of the common bile duct. Soft tissue fullness is seen in the region of the celiac axis. Adenopathy should be ruled out. Normal bilateral adrenal glands. Normal right kidney. Nonobstructive 7.3 mm calculus in the lower pole calyx of the left kidney. There is a moderate-sized hiatal hernia. Prior subtotal gastrectomy. Normal small intestine. There are multiple colonic diverticula consistent with diverticulosis. The appendix is visualized and appears normal. Normal abdominal aorta. Normal inferior vena cava. Normal retroperitoneum. Normal urinary bladder. The prostate measures 3.7 cm x 4.5 cm. Central calcifications are seen. Results of prior bilateral inguinal hernia repair and lower anterior abdominal wall repair with mesh. There are diffuse degenerative changes of the visualized lumbar spine. Minimal anterior listhesis of L5 and S1 with a spondylolysis of the pars interarticularis of the L5 vertebrae. CT/Abdomen/Pelvis WITH Contrast IMPRESSION: Dilated intrahepatic biliary duct as well as the pancreatic duct and common bile duct. Findings suggestive of a mass in the head of the pancreas. Correlation with ERCP is recommended. The patient is status post cholecystectomy. Nonobstructive calculus in the lower pole calyx of left kidney. Status post partial gastric resection. Electronically Signed: Trent Polk MD at 15:04 EST ,
[2023-07-30] MEDS: 0.9% Normal Saline (500mL Bag) 500 ML IV (13:28)
[2023-07-30 13:32] VITALS: BP 150/101; PULSE 87; RESP 16; O2SAT 99; BMI 28.3
[2023-07-30 15:03] VITALS: BP 169/99; PULSE 77; RESP 16; O2SAT 96
== END | disposition home or self-care (01) ==
LOC: CT 12:18
PROVIDERS: PCP Family Medicine; Referring Provider Family Medicine; Visit Provider Family Medicine
DX: R17 Unspecified jaundice (principal)
CPT/HCPCS: 74177; J7040; Q9967

== ENCOUNTER → 2023-12-23 | Outpatient (CLI) | payer MEDICARE, SELFPAY ==
[2023-12-23 16:00] LABS: Anion Gap 8 (5-15); BUN 35 mg/dL (7-18); BUN/Creat Ratio 15.6 RATIO (10-20); Calcium,Total 8.9 mg/dL (8.5-10.1); Chloride 109 mmol/L (98-107); Creatinine, Serum 2.24 mg/dL (0.70-1.30); EST Glomerular Filtration Rate 31 mL/min (>60); Est Glom Filt Rate - Afr Amer 37 mL/min (>60); Glucose 111 mg/dL (74-106); Magnesium 1.7 mg/dL (1.6-2.6); Potassium 4.8 mmol/L (3.5-5.1); Sodium Level 138 mmol/L (136-145)
== END | disposition home or self-care (01) ==
LOC: MFPLAB 12:00
PROVIDERS: PCP Family Medicine; Visit Provider Family Medicine
DX: N17.9 Acute kidney failure, unspecified (principal)
CPT/HCPCS: 36415; 80048; 83735

== ENCOUNTER → 2024-03-29 | Outpatient (CLI) | payer MEDICARE, SELFPAY ==
--- OUTSIDE RECORDS SUMMARY | 2024-03-29 07:32 | XMS RPT_ITS | CCD ---
Author Organization [facility] Care Team Providers Care Insole Beveler Name Role Phone Delroy Heath DO Primary Care Provider [phone] Delroy Heath DO Primary Care Provider Delroy Trotter MD Primary Care Provider Phong Aj DO Unavailable Magdalene ROACH, Gretchen Unavailable Unavailable DELROY TROTTER Primary Care Unavailable CECILE GARCIA Attending Unavailable CECILE GARCIA Admitting Unavailable Delroy Trotter MD Primary Care Provider Ashleigh Umaña Unavailable UnavailPHONG Lynn Referring Unavailable DELROY TROTTER Primary Care Unavailable PHONG AJ Referring Unavailable DELROY TROTTER Primary Care Unavailable DELROY TROTTER Primary Care Unavailable SEAN SHEN Consulting Unavailable MAYKEL SIU Attending Unavailable MAYKEL SIU Admitting Unavailable DELROY TROTTER Primary Care Unavailable PHONG AJ Referring Unavailable TOBI NASCIMENTO Referring Unavailable DELROY HEATH Primary Care Unavailable TOBI NASCIMENTO Referring Unavailable DELROY HEATH Primary Care Unavailable TOBI NASCIMENTO Attending Unavailable DELROY HEATH Primary Care Unavailable DELROY TROTTER Primary Care Unavailable PHONG AJ Referring Unavailable SCHDELROY PENNINGTON Primary Care Unavailable PHONG AJ Referring Unavailable SCHDELROY PENNINGTON E Primary Care Unavailable MASCPHONG King Referring Unavailable SCHGORGE, DELROY E Primary Care Unavailable PHONG AJ Referring Unavailable SCHDELROY PENNINGTON E Primary Care Unavailable MASCPHONG King Referring Unavailable SCHDELROY PENNINGTON E Primary Care Unavailable TOBI NASCIMENTO Referring Unavailable SCHGORGE, DELROY E Primary Care Unavailable MAXIMILIANO ZARAGOZA H Attending Unavailable TOBI NASCIMENTO Referring Unavailable SCHGORGE, DELROY E Primary Care Unavailable TOBI NASCIMENTO Referring Unavailable SCHDELROY PENNINGTON Primary Care Unavailable MASCI, PHONG Green Attending Unavailable MASCIPHONG Referring Unavailable SCHINNER, DELROY E Primary Care Unavailable MASCI, PHONG Green Referring Unavailable SCHINJASPAL, DELROY E Primary Care Unavailable MASCI, PHONG Green Referring Unavailable SCHINNER, DELROY E Primary Care Unavailable MASCI, PHONG Green Referring Unavailable SCHINNER, DELROY E Primary Care Unavailable MASCI, PHONG Green Referring Unavailable MASCI, PHONG Green Referring Unavailable SCHINNER, DELROY E Primary Care Unavailable SCHINNER, DELROY E Primary Care Unavailable MASCI, PHONG Green Referring Unavailable SCHINJASPAL, DELROY E Primary Care Unavailable MASCI, PHONG Green Referring Unavailable SCHINNER, DELROY E Primary Care Unavailable MASCI, PHONG Green Referring Unavailable SCHINNER, DELROY E Primary Care Unavailable MASCI, PHONG Green Attending Unavailable MASCAnkit, PHONG Green Referring Unavailable TOBI NASCIMENTO Referring Unavailable PAT BELLO Attending Unavailable DELROY HEATH Primary Care Unavailable TOBI NASCIMENTO Referring Unavailable SCHINJASPAL, DELROY E Primary Care Unavailable [facility] H Attending Unavailable SCHGORGE, DELROY E Primary Care Unavailable MASCI, PHONG Green Referring Unavailable NICHOLE WYMAN Attending Unavailable SCHGORGE, DELROY E Primary Care Unavailable MASCI, PHONG Green Referring Unavailable SCHGORGE, DELROY E Primary Care Unavailable MASCI, PHONG Green Referring Unavailable SCHGORGE, DELROY E Primary Care Unavailable MASCI, PHONG Green Referring Unavailable SCHGORGE, DELROY Zuniga Primary Care Unavailable MASCI, PHONG Green Referring Unavailable SCHGORGE, DELROY E Primary Care Unavailable MASCI, PHONG Green Referring Unavailable SCHINJASPAL, DELROY E Primary Care Unavailable MASCI, PHONG Green Attending Unavailable MASCI, PHONG Green Referring Unavailable SCHGORGE, DELROY E Primary Care Unavailable MASCI, PHONG Green Referring Unavailable GIN LAMBERT Attending Unavailable SCHGORGE, DELROY E Primary Care Unavailable BEAR BAHENA Attending Unavailable BEAR BAHENA Admitting Unavailable SCHINJASPAL, DELROY E Primary Care Unavailable SCHGORGE, DELROY E Primary Care Unavailable TOBI NASCIMENTO Attending Unavailable SCHGORGE, DELROY E Primary Care Unavailable MASCI, PHONG Green Referring Unavailable MASCI, PHONG Green Referring Unavailable SCHINNER, DELROY E Primary Care Unavailable MASCI, PHONG Green Attending Unavailable SCHDELROY PENNINGTON E Primary Care Unavailable MASCIPHONG Referring Unavailable SCHINJASPAL, DELROY E Primary Care Unavailable MASCPHONG King Referring Unavailable MASCPHONG King Attending Unavailable PHONG AJ Referring Unavailable MARLON DAHL Attending Unavailable SCHINDELROY SHAY E Primary Care Unavailable SCHINJASPAL, DELROY E Primary Care Unavailable MASCI, PHONG Green Referring Unavailable SCHINJASPAL, DELROY E Primary Care Unavailable TOBI NASCIMENTO Referring Unavailable MAXIMILIANO ZARAGOZA Attending Unavailable SCHGORGE, DELROY E Primary Care Unavailable TOBI NASCIMENTO Referring Unavailable SCHINJASPAL, DELROY E Primary Care Unavailable MARLON DAHL Referring Unavailable SCHINJASPAL, DELROY E Primary Care Unavailable MASCPHONG King Referring Unavailable SCHINJASPAL, DELROY Zuniga Primary Care Unavailable MASCAnkit, PHONG Green Referring Unavailable MASCPHONG King Attending Unavailable NICHOLE WYMAN Attending Unavailable SCHGORGE, DELROY E Primary Care Unavailable MASCAnkit, PHONG Green Referring Unavailable SCHGORGE, DELROY E Primary Care Unavailable MASCPHONG King Referring Unavailable MASCPHONG King Referring Unavailable SCHGORGE, DELROY Zuniga Primary Care Unavailable MARLON DAHL Referring Unavailable SCHINJASPAL, DELROY E Primary Care Unavailable MARLON ADHL Referring Unavailable SCHGORGE, DELROY Zuniga Primary Care Unavailable SCHGORGE, DELROY Zuniga Primary Care Unavailable TOBI NASCIMENTO Referring Unavailable SCHINJASPAL, DELROY E Primary Care Unavailable SERGEI NGUYEN Attending Unavailable SCHGORGE, DELROY E Primary Care Unavailable MASCAnkit, PHONG Green Referring Unavailable SCHDELROY PENNINGTON E Primary Care Unavailable GIN LAMBERT Attending Unavailable PHONG AJ Referring Unavailable SCHDELROY PENNINGTON E Primary Care Unavailable SCHGORGE, DELROY E Primary Care Unavailable MASCIPHONG Referring Unavailable SCHINJASPAL, DELROY E Primary Care Unavailable MASCPHONG King Referring Unavailable SCHDELROY PENNINGTON Primary Care Unavailable MASCPHONG King Referring Unavailable SCHDELROY PENNINGTON Primary Care Unavailable MARLON DAHL Referring Unavailable SCHGORGE, DELROY Zuniga Primary Care Unavailable PHONG AJ Referring Unavailable SCHGORGE, DELROY Zuniga Primary Care Unavailable MASCPHONG King Referring Unavailable MASCPHONG King Attending Unavailable SCHDELROY PENNINGTON Primary Care Unavailable SCHGORGE, DELROY E Primary Care Unavailable TOBI NASCIMENTO Attending Unavailable SELF Referring Unavailable TOBI NASCIMENTO Referring Unavailable SCHINNER, DELROY E Primary Care Unavailable CARLOS KEYS Attending Unavailable MASCI, PHONG Green Referring Unavailable SCHINNER, DELROY E Primary Care Unavailable SCHINNER, DELROY E Referring Unavailable SCHINNER, DELROY E Primary Care Unavailable MASCI, PHONG Green Referring Unavailable SCHINNER, DELROY E Primary Care Unavailable REINA, TOBI Referring Unavailable MASCIPHONG Attending Unavailable SCHINNER, DELROY E Primary Care Unavailable MASCI, PHONG Green Referring Unavailable SCHINNER, DELROY E Primary Care Unavailable SCHINNER, DELROY E Primary Care Unavailable CECILE GARCIA Attending Unavailable SCHINNER, DELROY E Primary Care Unavailable MASCI, PHONG Green Referring Unavailable SCHINNER, DELROY E Primary Care Unavailable MASCI, PHONG Green Referring Unavailable SCHINNER, DELROY E Primary Care Unavailable MASCI, PHONG Green Referring Unavailable SCHINNER, DELROY E Primary Care Unavailable MASCI, PHONG A Referring Unavailable SCHINNER, DELROY E Primary Care Unavailable MASCI, PHONG Norma Referring Unavailable MASCI, PHONG Green Attending Unavailable SCHINNER, DELROY E Primary Care Unavailable MASCI, PHONG Norma Referring Unavailable SCHINNER, DELROY E Primary Care Unavailable SCHINNER, DELROY E Primary Care Unavailable MASCI, PHOGN A Referring Unavailable SCHINNER, DELROY E Primary Care Unavailable MASCI, PHONG Norma Referring Unavailable SCHINNER, DELROY E Primary Care Unavailable MASCI, PHONG A Referring Unavailable MASCI, PHONG Green Attending Unavailable Allergies Allergy Classification Reported Allergen(s) Allergy Type Date of Onset Reaction(s) Facility Promethazine (3 sources) Promethazine Drug Allergy 11-12-2007 Anaphylaxis [facility] (20 sources) Promethazine; Translations: [PROMETHAZINE HCL] Drug Allergy 11-12-2007 Anaphylaxis [facility] Medications Current Medications Medication Drug Class(es) Dates Sig (Normalized) Sig (Original) acetaminophen 325 mg / HYDROcodone bitartrate 5 mg oral tablet (1 source) Opioid Agonist Start: 08-21-2023 End: 08-24-2023 take 1 tablet by mouth every eight hours as needed for pain HYDROcodone-acetami nophen (NORCO) 5-325 mg per tablet Indications: Postoperative pain Take 1 tablet by mouth every 8 hours as needed for pain for up to 3 days. 8 tablet 0 08/21/2023 08/24/2023 Active Comment on above: Take 1 tablet by [facility] every 8 hours as needed for pain for up to 3 days. amLODIPine 5 mg oral tablet (20 sources) Dihydropyridine Calcium Channel Abraham Start: 09-23-2023 take 1 tablet by mouth once daily amLODIPine (NORVASC) 5 mg tablet Take 1 tablet by mouth once daily. 30 tablet 5 09/23/2023 Active Comment on above: Take 1 tablet by [place] th once daily. amylase [id number] unt / lipase [id number] unt / protease [id number] unt delayed release oral capsule (20 sources) Start: 10-13-2023 End: 02-20-2024 take 2 capsules by mouth three times daily at mealtime chgihe-hbdofnal-ptv lase (ZENPEP) 40,000-126,000- 168,000 unit delayed release capsule Indications: 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) , Pancreatic malabsorption Take 2 capsules by mouth three times a day with meals. 100 capsule 5 02/20/2024 Active cholestyramine resin 4000 mg powder for oral suspension (20 sources) Bile Acid Sequestrant Start: 12-12-2023 take 1 dose by mouth twice daily at mealtime cholestyramine (QUESTRAN) 4 gram packet Take 1 Packet by mouth two times a day with meals. 120 Packet 1 12/12/2023 Active dexamethasone 4 mg oral tablet (20 sources) Corticosteroid Start: 08-18-2023 take 1 tablet by mouth twice daily at mealtime dexAMETHasone (DECADRON) 4 mg tablet Indications: 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) Take 1 tablet by mouth two times a day with meals. for 3 days beginning the day after chemotherapy treatment. 24 tablet 3 08/18/2023 Active Comment on above: Take 1 tablet by [facility] th two times a day with meals. for 3 days beginning the day after chemotherapy treatment. iv contrast (will be provided with radiology test) (20 sources) Start: 01-13-2024 End: 01-14-2024 iv contrast (will be provided with radiology test) Indications: 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) , Abnormal CT of liver MRI Liver Inject, intravenously, once for 1 dose. No IV access, insert saline lock prior to the beginning of sedation, infusion, injection of imaging exam. Discontinue saline lock post exam. If Pt. has a central line or IVAD, may access for administration according to line specific nursing protocol. Once exam is complete flush line and de-access according to line specific nursing protocol in the MR contrast administration guidelines link. 1 Each 0 01/13/2024 01/14/2024 Active Start: 12-16-2023 End: 12-17-2023 iv contrast (will be provide d with radiology test) Indications: 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) CT Chest ABD/PEL-Inject, intravenously, once for 1 dose.No IV access, insert saline lock prior to the beginning of sedation, infusion, injection of imaging exam. Discontinue saline lock post exam. If Pt. has a central line or IVAD, may access for administration according to line specific nursing protocol. Once exam is complete flush line and de-access according to line specific nursing protocol in the CT contrast administration guidelines link. 1 Each 0 12/16/2023 12/17/2023 Start: 12-16-2023 End: 12-17-2023 iv contrast (will be provide d with radiology test) Indications: 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) CT Chest ABD/PEL-Inject, intravenously, once for 1 dose.No IV access, insert saline lock prior to the beginning of sedation, infusion, injection of imaging exam. Discontinue saline lock post exam. If Pt. has a central line or IVAD, may access for administration according to line specific nursing protocol. Once exam is complete flush line and de-access according to line specific nursing protocol in the CT contrast administration guidelines link. 1 Each 0 12/16/2023 12/17/2023 Active Start: 09-22-2023 iv contrast (w ill be provided with radiology test) Indications: 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) CT ABD/PEL -Inject, intravenously, once for 1 dose.No IV access, insert saline lock prior to the beginning of sedation, infusion, injection of imaging exam. Discontinue saline lock post exam. If Pt. has a central line or IVAD, may access for administration according to line specific nursing protocol. Once exam is complete flush line and de-access according to line specific nursing protocol in the CT contrast administration guidelines link. 1 Each 09/22/2023 Active Start: 09-22-2023 iv contrast (w ill be provided with radiology test) Indications: 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) CT Chest W -Inject, intravenously, once for 1 dose.No IV access, insert saline lock prior to the beginning of sedation, infusion, injection of imaging exam. Discontinue saline lock post exam. If Pt. has a central line or IVAD, may access for administration according to line specific nursing protocol. Once exam is complete flush line and de-access according to line specific nursing protocol in the CT contrast administration guidelines link. 1 Each 09/22/2023 Active Start: 09-22-2023 iv contrast (w ill be provided with radiology test) Indications: 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) CT ABD/PEL -Inject, intravenously, once for 1 dose.No IV access, insert saline lock prior to the beginning of sedation, infusion, injection of imaging exam. Discontinue saline lock post exam. If Pt. has a central line or IVAD, may access for administration according to line specific nursing protocol. Once exam is complete flush line and de-access according to line specific nursing protocol in the CT contrast administration guidelines link. 1 Each 0 09/22/2023 Suspended Start: 09-22-2023 iv contrast (w ill be provided with radiology test) Indications: 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) CT Chest W -Inject, intravenously, once for 1 dose.No IV access, insert saline lock prior to the beginning of sedation, infusion, injection of imaging exam. Discontinue saline lock post exam. If Pt. has a central line or IVAD, may access for administration according to line specific nursing protocol. Once exam is complete flush line and de-access according to line specific nursing protocol in the CT contrast administration guidelines link. 1 Each 0 09/22/2023 Suspended Start: 09-22-2023 iv contrast (w ill be provided with radiology test) Indications: 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) CT ABD/PEL -Inject, intravenously, once for 1 dose.No IV access, insert saline lock prior to the beginning of sedation, infusion, injection of imaging exam. Discontinue saline lock post exam. If Pt. has a central line or IVAD, may access for administration according to line specific nursing protocol. Once exam is complete flush line and de-access according to line specific nursing protocol in the CT contrast administration guidelines link. 1 Each 0 09/22/2023 Active Start: 09-22-2023 iv contrast (w ill be provided with radiology test) Indications: 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) CT Chest W -Inject, intravenously, once for 1 dose.No IV access, insert saline lock prior to the beginning of sedation, infusion, injection of imaging exam. Discontinue saline lock post exam. If Pt. has a central line or IVAD, may access for administration according to line specific nursing protocol. Once exam is complete flush line and de-access according to line specific nursing protocol in the CT contrast administration guidelines link. 1 Each 0 09/22/2023 Active Start: 08-04-2023 End: 08-05-2023 iv contrast (will be provide d with radiology test) CT Chest W -Inject, intravenously, once for 1 dose.No IV access, insert saline lock prior to the beginning of sedation, infusion, injection of imaging exam. Discontinue saline lock post exam. If Pt. has a central line or IVAD, may access for administration according to line specific nursing protocol. Once exam is complete flush line and de-access according to line specific nursing protocol in the CT contrast administration guidelines link. 1 Each 0 08/04/2023 08/05/2023 Start: 08-04-2023 End: 08-05-2023 iv contrast (will be provide d with radiology test) CT PANCREAS/PEL Inject, intravenously, once for 1 dose.No IV access, insert saline lock prior to the beginning of sedation, infusion, injection of imaging exam. Discontinue saline lock post exam. If Pt. has a central line or IVAD, may access for administration according to line specific nursing protocol. Once exam is complete flush line and de-access according to line specific nursing protocol in the CT contrast administration guidelines link. 1 Each 0 08/04/2023 08/05/2023 Comment on above: CT Chest W -Inject, intravenously, once for 1 dose.No IV access, insert saline lock prior to the beginning of sedation, infusion, injection of imaging exam. Discontinue saline lock post exam. If Pt. has a central line or IVAD, may access for administration according to line specific nursing protocol. Once exam is complete flush line and de-access according to line specific nursing protocol in the CT contrast administration guidelines link. CT PANCREAS/PEL Inje ct, intravenously, once for 1 dose.No IV access, insert saline lock prior to the beginning of sedation, infusion, injection of imaging exam. Discontinue saline lock post exam. If Pt. has a central line or IVAD, may access for administration according to line specific nursing protocol. Once exam is complete flush line and de-access according to line specific nursing protocol in the CT contrast administration guidelines link. CT ABD/PEL -Inject, intravenously, once for 1 dose.No IV access, insert saline lock prior to the beginning of sedation, infusion, injection of imaging exam. Discontinue saline lock post exam. If Pt. has a central line or IVAD, may access for administration according to line specific nursing protocol. Once exam is complete flush line and de-access according to line specific nursing protocol in the CT contrast administration guidelines link. lidocaine 25 mg/ml / prilocaine 25 mg/ml topical cream (20 sources) Antiarrhythmic, Amide Local Anesthetic Start: End: lidocaine-prilocaine (EMLA) 2.5-2.5 % cream Indications: 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) Apply 60 minutes prior to accessing port. 15 g 2 08/18/2023 09/03/2024 Active Comment on above: Apply 60 minutes landen or to accessing port. loratadine 10 mg oral tablet (20 sources) loratadine (CLAR ITIN) 10 mg tablet Take 10 mg by mouth as needed. Active magnesium chloride 598 mg delayed release oral tablet (20 sources) Start: take 1 tablet by mouth twice daily Magnesium Chloride (SLOW-MAG) 71.5 mg TbEC Take 1 tablet by mouth two times a day. 60 tablet 2 12/29/2023 Active metoclopramide 10 mg oral tablet (20 sources) Dopamine-2 Receptor Antagonist Start: End: take 1 tablet by mouth three times daily metoclopramide HCl (REGLAN) 10 mg tablet Indications: 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) Take 1 tablet by mouth three times a day. but not within 6 hours of taking olanzapine. 60 tablet 12/18/2023 Active Start: 08-18-2023 End: 12-12-2023 take 1 tablet by mouth three times daily metoclopramide HCl (REGLAN) 10 mg tablet Take 1 tablet by mouth three times a day. but not within 6 hours of taking olanzapine. 60 tablet 09/22/2023 12/12/2023 Discontinued Comment on above: Take 1 tablet by [place] three times a day. but not within 6 hours of taking olanzapine. metoprolol tartrate 25 mg oral tablet (20 sources) beta-Adrenergic Abraham Start: take 1 tablet by mouth every twelve hours metoprolol tartrate, short acting, (LOPRESSOR) 25 mg tablet Take 1 tablet by mouth every 12 hours. 120 tablet 1 12/12/2023 Active OLANZapine 5 mg oral tablet (20 sources) Atypical Antipsychotic Start: End: 4 take 1 tablet by mouth once daily at bedtime OLANZapine (ZYPREXA) 5 mg tablet Indications: 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) TAKE 1 TABLET BY MOUTH ONCE DAILY AT BEDTIME BEGINNING THE EVENING OF FIRST DAY OF CHEMOTHERAPY EACH CYCLE AND TAKE FOR 4 DAYS. 16 tablet 12/16/2023 Active Start: 08-18-2023 End: 10-20-2023 take 1 tablet by mouth once daily at bedtime OLANZapine (ZYPREXA) 5 mg tablet Indications: 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) Take 1 tablet by mouth daily at bedtime. beginning the evening of first day of chemotherapy each cycle and take for 4 days. 16 tablet 08/18/2023 10/20/2023 Discontinued Comment on above: Take 1 tablet by milton th daily at bedtime. beginning the evening of first day of chemotherapy each cycle and take for 4 days. ondansetron 8 mg oral tablet (20 sources) Serotonin-3 Receptor Antagonist Start: 08-18-19 24 take 1 tablet by mouth every eight hours as needed for nausea and vomiting ondansetron (ZOFRAN) 8 mg tablet Indications: 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) Take 1 tablet by mouth every 8 hours as needed (For chemotherapy induced nausea and vomiting.). Hold for 72 hours after each chemotherapy treatment. 30 tablet 2 08/18/2023 Active Start: 07-18-2011 End: 08-15-2023 take 1 tablet by mouth every eight hours as needed ondansetron orally disintegrating 4 mg ORAL disintegrating tablet Take 1 tablet by mouth every 8 hours as needed. FOR NAUSEA 30 tablet 0 07/18/2011 08/15/2023 Discontinued (Course of therapy completed) Comment on above: Take 1 tablet by milton th every 8 hours as needed. FOR NAUSEA Take 1 tablet by milton th every 8 hours as needed (For chemotherapy induced nausea and vomiting.). Hold for 72 hours after each chemotherapy treatment. pantoprazole 40 mg delayed release oral tablet (3 sources) Proton Pump Inhibitor Start: 03-26-20 take 1 tablet by mouth once daily pantoprazole DR (PROTONIX) 40 mg tablet Indications: 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) Take 1 tablet by mouth once daily. 90 tablet 1 03/26/2024 Active potassium bicarbonate 25 meq effervescent oral tablet (20 sources) Start: 12-12-19 End: 02-17-20 take 1 tablet by mouth twice daily Potassium Bicarb-Citric Acid (K-LYTE) 25 mEq disintegrating tablet Indications: 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) , Abnormal CT of liver Take 1 tablet by mouth two times a day. 180 tablet 3 02/17/2024 Active 1000 ml sodium chloride 9 mg/ml injection (11 sources) Start: 03-26-20 End: 03-26-20 NaCl 0.9% 1,000 mL iv bolus Start: 02-17-2024 End: 02-17-2024 1,000 mL, INTRAVENOUS, at 99 9 mL/hr, Administer over 1 Hours, ONCE, 1 dose, On Fri02/17/24 at 1030, Administer prior to chemotherapy. Start: 01-27-2024 End: 01-27-2024 1,000 mL, INTRAVENOUS, at 99 9 mL/hr, Administer over 1 Hours, ONCE, 1 dose, On Fri01/27/24 at 1000, Administer prior to chemotherapy. Start: 01-14-2024 End: 01-14-2024 NaCl 0.9% iv bolus 1,000 mL Start: 12-25-2023 End: 12-25-2023 NaCl 0.9% iv infusion Start: 12-18-2023 End: 12-18-2023 NaCl 0.9% iv infusion Start: 12-16-2023 End: 12-16-2023 NaCl 0.9% iv bolus 1,000 mL Start: 11-18-2023 End: 11-18-2023 NaCl 0.9% iv bolus 1,000 mL Start: 11-05-2023 End: 11-05-2023 NaCl 0.9% iv bolus 1,000 mL Start: 10-21-2023 End: 10-21-2023 NaCl 0.9% iv bolus 1,000 mL Start: 10-07-2023 End: 10-07-2023 NaCl 0.9% iv bolus 1,000 mL Completed/Discontinued Medications Medication Drug Class(es) Dates Sig (Normalized) Sig (Original) cholecalciferol, vitamin D3, (VITAMIN D3 ORAL) (20 sources) End: 11-27-2023 take 1000 [IU] by mouth once daily cholecalciferol, vitamin D3, (VITAMIN D3 ORAL) Take 1,000 Units by mouth once daily. 11/27/2023 Discontinued (Erroneous entry) take 1000 [IU] by mouth once doug ly cholecalciferol, vitamin D3, (VITAMIN D3 ORAL) Take 1,000 Units by mouth once daily. 0 Active cholecalciferol, vitamin D3, (VITAMIN D3 ORAL) Take by mouth once daily. 0 Active Comment on above: Take by mouth once d aily. dexAMETHasone 10 mg in NaCl 0.9% 50 mL (DECADRON) (10 sources) Start: 03-16-2024 End: 03-16-2024 10 mg, INTRAVENOUS, ONCE, 1 dose, On Fri03/16/24 at 0830, Refrigerate. Start: 03-02-2024 End: 03-02-2024 10 mg, INTRAVENOUS, ONCE, 1 dose, On Fri03/02/24 at 1100, Refrigerate. Start: 02-17-2024 End: 02-17-2024 10 mg, INTRAVENOUS, Administ er over 15 Minutes, ONCE, 1 dose, On Fri02/17/24 at 1030, Refrigerate. Start: 01-27-2024 End: 01-27-2024 10 mg, INTRAVENOUS, ONCE, 1 dose, On Fri01/27/24 at 1000, Refrigerate. Start: 01-14-2024 End: 01-14-2024 dexAMETHasone 10 mg in NaCl 0.9% 50 mL (DECADRON) Start: 12-16-2023 End: 12-16-2023 dexAMETHasone 10 mg in NaCl 0.9% 50 mL (DECADRON) Start: 11-18-2023 End: 11-18-2023 dexAMETHasone 10 mg in NaCl 0.9% 50 mL (DECADRON) Start: 11-05-2023 End: 11-05-2023 dexAMETHasone 10 mg in NaCl 0.9% 50 mL (DECADRON) Start: 10-21-2023 End: 10-21-2023 dexAMETHasone 10 mg in NaCl 0.9% 50 mL (DECADRON) Start: 10-07-2023 End: 10-07-2023 dexAMETHasone 10 mg in NaCl 0.9% 50 mL (DECADRON) enteric contrast (will be provided with radiology test) (20 sources) Start: 12-16-2023 End: 12-17-2023 enteric contrast (will be provided with radiology test) Indications: 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) For CT CHESTABD/PEL W IVCON Routine order Administer, As Directed One Time Only, via Oral, Rectal, both Oral and Rectal, Enteric Tube, Stoma or Indwelling Catheter, Enteric Contrast as designated per enteric contrast guidelines 1 Each 0 12/16/2023 12/17/2023 Start: 12-16-2023 End: 12-17-2023 enteric contrast (will be pr ovided with radiology test) Indications: 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) For CT CHESTABD/PEL W IVCON Routine order Administer, As Directed One Time Only, via Oral, Rectal, both Oral and Rectal, Enteric Tube, Stoma or Indwelling Catheter, Enteric Contrast as designated per enteric contrast guidelines 1 Each 0 12/16/2023 12/17/2023 Active Start: 09-22-[address] (will be provided with radiology test) Indications: 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) For CT ABD/PEL W IVCON Routine order Administer, As Directed One Time Only, via Oral, Rectal, both Oral and Rectal, Enteric Tube, Stoma or Indwelling Catheter, Enteric Contrast as designated per enteric contrast guidelines 1 Each 09/22/2023 Active Start: 09-22-[address] (will be provided with radiology test) Indications: 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) For CT ABD/PEL W IVCON Routine order Administer, As Directed One Time Only, via Oral, Rectal, both Oral and Rectal, Enteric Tube, Stoma or Indwelling Catheter, Enteric Contrast as designated per enteric contrast guidelines 1 Each 0 09/22/2023 Suspended Start: 09-22-[address] (will be provided with radiology test) Indications: 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) For CT ABD/PEL W IVCON Routine order Administer, As Directed One Time Only, via Oral, Rectal, both Oral and Rectal, Enteric Tube, Stoma or Indwelling Catheter, Enteric Contrast as designated per enteric contrast guidelines 1 Each 0 09/22/2023 Active Comment on above: For CT ABD/PEL W IVC ON Routine order Administer, As Directed One Time Only, via Oral, Rectal, both Oral and Rectal, Enteric Tube, Stoma or Indwelling Catheter, Enteric Contrast as designated per enteric contrast guidelines fluorometholone 1 mg/ml ophthalmic suspension (4 sources) Corticosteroid Start: 10-02-2020 End: 08-05-2023 fluorometholone (FML LIQUID FILM) 0.1 % ophthalmic suspension Use 1 Drop in both eyes three times daily. 10 mL 2 10/02/2020 08/05/2023 Discontinued Comment on above: Use 1 Drop in both e yes three times daily. fluorouracil (ADRUCIL) 3,500 mg in NaCl 0.9% 102 mL in empty bag (1 source) Start: 03-16-2024 End: 03-16-2024 3,500 mg (rounded from 3,510 mg = 1,800 mg/m2 1.95 m2 Treatment Plan BSA from Recorded weight), INTRAVENOUS, at 2.2 mL/hr, Administer over 46 Hours, ONCE, 1 dose, On Fri03/16/24 at 0830, exp 1400 12/21/23 (room temp) Hazardous Chemotherapy Drug: Use appropriate PPE. Protect from Light. fluorouracil (ADRUCIL) 4,500 mg in NaCl 0.9% 102 mL in empty bag (5 sources) Start: 03-02-2024 End: 03-02-2024 4,500 mg (rounded from 4,680 mg = 2,400 mg/m2 1.95 m2 Treatment Plan BSA from Recorded weight), INTRAVENOUS, at 2.2 mL/hr, Administer over 46 Hours, ONCE, 1 dose, On Fri03/02/24 at 1100, exp 1400 03/08/24 (room temp) Hazardous Chemotherapy Drug: Use appropriate PPE. Protect from Light. Start: 02-17-2024 End: 02-17-2024 4,500 mg (rounded from 4,680 mg = 2,400 mg/m2 1.95 m2 Treatment Plan BSA from Recorded weight), INTRAVENOUS, at 2.2 mL/hr, Administer over 46 Hours, ONCE, 1 dose, On Fri02/17/24 at 1030, Expires: 02/24/24 @ 1015 Hazardous Chemotherapy Drug: Use appropriate PPE. Protect from Light. Start: 01-27-2024 End: 01-27-2024 4,500 mg (rounded from 4,680 mg = 2,400 mg/m2 1.95 m2 Treatment Plan BSA from Recorded weight), INTRAVENOUS, at 2.2 mL/hr, Administer over 46 Hours, ONCE, 1 dose, On Fri01/27/24 at 1000, exp 139902/02/24 (room temp) Hazardous Chemotherapy Drug: Use appropriate PPE. Protect from Light. Start: 01-14-2024 End: 01-14-2024 fluorouracil (ADRUCIL) 4,500 mg in NaCl 0.9% 102 mL in empty bag Start: 10-07-2023 End: 10-07-2023 fluorouracil (ADRUCIL) 4,500 mg in NaCl 0.9% 102 mL in empty bag fluorouracil (ADRUCIL) 4,848 mg in NaCl 0.9% 102 mL in empty bag (4 sources) Start: 12-16-2023 End: 12-16-2023 fluorouracil (ADRUCIL) 4,848 mg in NaCl 0.9% 102 mL in empty bag Start: 11-18-2023 End: 11-18-2023 fluorouracil (ADRUCIL) 4,848 mg in NaCl 0.9% 102 mL in empty bag Start: 11-05-2023 End: 11-05-2023 fluorouracil (ADRUCIL) 4,848 mg in NaCl 0.9% 102 mL in empty bag Start: 10-21-2023 End: 10-21-2023 fluorouracil (ADRUCIL) 4,848 mg in NaCl 0.9% 102 mL in empty bag fosaprepitant 150 mg in NaCl 0.9% 250 mL (EMEND) (10 sources) Start: 03-16-2024 End: 03-16-2024 150 mg, INTRAVENOUS, Adminis ter over 30 Minutes, ONCE, 1 dose, On Fri03/16/24 at 0830, Approximate Total Volume = 280 mL Refrigerate Start: 03-02-2024 End: 03-02-2024 150 mg, INTRAVENOUS, Adminis ter over 30 Minutes, ONCE, 1 dose, On Fri03/02/24 at 1100, Approximate Total Volume = 280 mL Refrigerate Start: 02-17-2024 End: 02-17-2024 150 mg, INTRAVENOUS, Adminis ter over 30 Minutes, ONCE, 1 dose, On Fri02/17/24 at 1030, Refrigerate Start: 01-27-2024 End: 01-27-2024 150 mg, INTRAVENOUS, Adminis ter over 30 Minutes, ONCE, 1 dose, On Fri01/27/24 at 1000, Approximate Total Volume = 280 mL Refrigerate Start: 01-14-2024 End: 01-14-2024 fosaprepitant 150 mg in NaCl 0.9% 250 mL (EMEND) Start: 12-16-2023 End: 12-16-2023 fosaprepitant 150 mg in NaCl 0.9% 250 mL (EMEND) Start: 11-18-2023 End: 11-18-2023 fosaprepitant 150 mg in NaCl 0.9% 250 mL (EMEND) Start: 11-05-2023 End: 11-05-2023 fosaprepitant 150 mg in NaCl 0.9% 250 mL (EMEND) Start: 10-21-2023 End: 10-21-2023 fosaprepitant 150 mg in NaCl 0.9% 250 mL (EMEND) Start: 10-07-2023 End: 10-07-2023 fosaprepitant 150 mg in NaCl 0.9% 250 mL (EMEND) hydroCHLOROthiazide 12.5 mg / losartan potassium 50 mg oral tablet (16 sources) Thiazide Diuretic, Angiotensin 2 Receptor Abraham Start: 04-16-2021 End: 09-08-2023 take 1 tablet by mouth once daily losartan-hydroCHLOROthiazide (HYZAAR) 50-12.5 mg per tablet Take 1 tablet by mouth once daily. 0 04/16/2021 09/08/2023 Discontinued Start: 04-16-2021 losartan-hydro CHLOROthiazide (HYZAAR) 50-12.5 mg per tablet Take by mouth. 0 04/16/2021 Active Comment on above: Take by mouth. Take 1 tablet by mil[place] once daily. hyoscyamine sulfate 0.125 mg sublingual tablet (8 sources) Start: 02-17-2024 End: 02-17-2024 take 0.25 mg under the tongue once 0.25 mg, SUBLINGUAL, ONCE, 1 dose, On Fri02/17/24 at 1030, Give 30 minutes prior to chemotherapy. Start: 01-27-2024 End: 01-27-2024 take 0.25 mg under the tongue once 0.25 mg, SUBLINGUAL, ONCE, 1 dose, On Fri01/27/24 at 1000, Give 30 minutes prior to chemotherapy. Start: 01-14-2024 End: 01-14-2024 hyoscyamine sublingual 0.25 mg tab(s) (LEVSIN SL) Start: 12-16-2023 End: 12-16-2023 hyoscyamine sublingual 0.25 mg tab(s) (LEVSIN SL) Start: 11-18-2023 End: 11-18-2023 hyoscyamine sublingual 0.25 mg tab(s) (LEVSIN SL) Start: 11-05-2023 End: 11-05-2023 hyoscyamine sublingual 0.25 mg tab(s) (LEVSIN SL) Start: 10-21-2023 End: 10-21-2023 hyoscyamine sublingual 0.25 mg tab(s) (LEVSIN SL) Start: 10-07-2023 End: 10-07-2023 hyoscyamine sublingual 0.25 mg tab(s) (LEVSIN SL) irinotecan (4 sources) Topoisomerase Inhibitor Start: 11-18-2023 End: 11-18-2023 Irinotecan 300 mg in D5W 555 mL (CAMPTOSAR) Start: 11-05-2023 End: 11-05-2023 Irinotecan 300 mg in D5W 555 mL (CAMPTOSAR) Start: 10-21-2023 End: 10-21-2023 Irinotecan 300 mg in D5W 555 mL (CAMPTOSAR) Start: 10-07-2023 End: 10-07-2023 Irinotecan 300 mg in D5W 555 mL (CAMPTOSAR) Leucovorin (10 sources) Folate Analog Start: 03-16-2024 End: 03-16-2024 780 mg (400 mg/m2 1.95 m2 Tr eatment Plan BSA from Recorded weight), INTRAVENOUS, Administer over 0.5 Hours, ONCE, 1 dose, On Fri03/16/24 at 0830, APPROXIMATE TOTAL VOLUME exp 139903/19/24 (refrigerated) PROTECT FROM LIGHT REFRIGERATE Start: 03-02-2024 End: 03-02-2024 780 mg (400 mg/m2 1.95 m2 Tr eatment Plan BSA from Recorded weight), INTRAVENOUS, Administer over 0.5 Hours, ONCE, 1 dose, On Fri03/02/24 at 1100, APPROXIMATE TOTAL VOLUME exp 1400 02/24/24 (refrigerated) PROTECT FROM LIGHT REFRIGERATE Start: 02-17-2024 End: 02-17-2024 780 mg (400 mg/m2 1.95 m2 Tr eatment Plan BSA from Recorded weight), INTRAVENOUS, Administer over 2 Hours, ONCE, 1 dose, On Fri02/17/24 at 1030, Approx Total Volume - Expires: 02/18/24 @ 1615 PROTECT FROM LIGHT ADMINISTER CONCURRENTLY WITH OXALIPLATIN. REFRIGERATE Start: 01-27-2024 End: 01-27-2024 780 mg (400 mg/m2 1.95 m2 Tr eatment Plan BSA from Recorded weight), INTRAVENOUS, Administer over 2 Hours, ONCE, 1 dose, On Fri01/27/24 at 1000, APPROXIMATE TOTAL VOLUME exp 1400 01/30/24 (refrigerated) l; PROTECT FROM LIGHT ADMINISTER CONCURRENTLY WITH OXALIPLATIN. REFRIGERATE Start: 01-14-2024 End: 01-14-2024 leucovorin 780 mg in D5W 97 mL Start: 12-16-2023 End: 12-16-2023 leucovorin 808 mg in D5W 98. 4 mL Start: 11-18-2023 End: 11-18-2023 leucovorin 808 mg in D5W 98. 4 mL Start: 11-05-2023 End: 11-05-2023 leucovorin 808 mg in D5W 98. 4 mL Start: 10-21-2023 End: 10-21-2023 leucovorin 808 mg in D5W 98. 4 mL Start: 10-07-2023 End: 10-07-2023 leucovorin 808 mg in D5W 98. 4 mL losartan potassium 100 mg oral tablet (20 sources) Angiotensin 2 Receptor Abraham Start: 09-08-2023 End: 12-12-2023 take 1 tablet by mouth once daily losartan (COZAAR) 100 mg tablet Take 1 tablet by mouth once daily. 30 tablet 5 09/08/2023 12/12/2023 Discontinued End: 08-15-2023 take 1 tablet by mouth once daily losartan (COZAAR) 50 mg tablet Take 50 mg by mouth once daily. 0 08/15/2023 Discontinued (Course of therapy completed) Comment on above: Take 50 mg by mouth once daily. Take 1 tablet by milton th once daily. 100 ml magnesium sulfate 40 mg/ml injection (10 sources) Start: 03-16-2024 End: 03-16-2024 4 g, INTRAVENOUS, at 25-50 mL/hr, Administer over 2-4 Hours, ONCE, 1 dose, On Fri03/16/24 at 0900, Magnesium 1.4 to 1.6 infuse 4gm Magnesium Sulfate IV over 2 hours. Magnesium Sulfate IV bolus will be infused at a rate of 1 gram/hr. The following care areas may administer a magnesium sulfate bolus at a rate of 2 grams/hr if necessary: 1) ICUs/PACU/ED 2) Adult Hematology/Oncology 3) Labor and Delivery 4) Cardiac Step Down 5) Headache Clinic The following care areas may administer a magnesium sulfate bolus at a rate of GREATER than 2 grams/hr if necessary: 1) Adult and Pediatric Asthma Exacerbations 2) [place] 3) Pediatric BMT and Hematology/Oncology 4) Eclampsia or Preeclampsia Start: 03-02-2024 End: 03-02-2024 4 g, INTRAVENOUS, at 25-50 m L/hr, Administer over 2-4 Hours, ONCE, 1 dose, On Fri03/02/24 at 1100, Magnesium 1.4 to 1.6 infuse 4gm Magnesium Sulfate IV over 2 hours. Magnesium Sulfate IV bolus will be infused at a rate of 1 gram/hr. The following care areas may administer a magnesium sulfate bolus at a rate of 2 grams/hr if necessary: 1) ICUs/PACU/ED 2) Adult Hematology/Oncology 3) Labor and Delivery 4) Cardiac Step Down 5) Headache Clinic The following care areas may administer a magnesium sulfate bolus at a rate of GREATER than 2 grams/hr if necessary: 1) Adult and Pediatric Asthma Exacerbations 2) [place] 3) Pediatric BMT and Hematology/Oncology 4) Eclampsia or Preeclampsia Start: 02-17-2024 End: 02-17-2024 2 g, INTRAVENOUS, at 25-50 m L/hr, Administer over 1-2 Hours, ONCE, 1 dose, On Fri02/17/24 at 1130, Magnesium Sulfate IV bolus will be infused at a rate of 1 gram/hr. The following care areas may administer a magnesium sulfate bolus at a rate of 2 grams/hr if necessary: 1) ICUs/PACU/ED 2) Adult Hematology/Oncology 3) Labor and Delivery 4) Cardiac Step Down 5) Headache Clinic The following care areas may administer a magnesium sulfate bolus at a rate of GREATER than 2 grams/hr if necessary: 1) Adult and Pediatric Asthma Exacerbations 2) [place] 3) Pediatric BMT and Hematology/Oncology 4) Eclampsia or Preeclampsia Start: 02-17-2024 End: 02-17-2024 4 g, INTRAVENOUS, at 25-50 m L/hr, Administer over 2-4 Hours, ONCE, 1 dose, On Fri02/17/24 at 1130, Magnesium 1.4 to 1.6 infuse 4gm Magnesium Sulfate IV over 2 hours. Magnesium Sulfate IV bolus will be infused at a rate of 1 gram/hr. The following care areas may administer a magnesium sulfate bolus at a rate of 2 grams/hr if necessary: 1) ICUs/PACU/ED 2) Adult Hematology/Oncology 3) Labor and Delivery 4) Cardiac Step Down 5) Headache Clinic The following care areas may administer a magnesium sulfate bolus at a rate of GREATER than 2 grams/hr if necessary: 1) Adult and Pediatric Asthma Exacerbations 2) [place] 3) Pediatric BMT and Hematology/Oncology 4) Eclampsia or Preeclampsia Start: 01-27-2024 End: 01-27-2024 4 g, INTRAVENOUS, at 25-50 m L/hr, Administer over 2-4 Hours, ONCE, 1 dose, On Fri01/27/24 at 1000, Magnesium 1.4 to 1.6 infuse 4gm Magnesium Sulfate IV over 2 hours. Magnesium Sulfate IV bolus will be infused at a rate of 1 gram/hr. The following care areas may administer a magnesium sulfate bolus at a rate of 2 grams/hr if necessary: 1) ICUs/PACU/ED 2) Adult Hematology/Oncology 3) Labor and Delivery 4) Cardiac Step Down 5) Headache Clinic The following care areas may administer a magnesium sulfate bolus at a rate of GREATER than 2 grams/hr if necessary: 1) Adult and Pediatric Asthma Exacerbations 2) [place] 3) Pediatric BMT and Hematology/Oncology 4) Eclampsia or Preeclampsia Start: 01-14-2024 End: 01-14-2024 magnesium sulfate iv piggyba ck in sterile water 2 g 50 mL Start: 01-14-2024 End: 01-14-2024 magnesium sulfate in sterile water 4 g in 100 mL iv piggyback Start: 12-30-2023 End: 12-30-2023 magnesium sulfate iv piggyba ck in sterile water 2 g 50 mL Start: 12-30-2023 End: 12-30-2023 magnesium sulfate in sterile water 4 g in 100 mL iv piggyback Start: 12-16-2023 End: 12-16-2023 magnesium sulfate in sterile water 4 g in 100 mL iv piggyback mecobalamin (4 sources) End: 08-05-2023 mecobalamin (B12 ACTIVE ORAL ) Take by mouth once daily. 0 08/05/2023 Discontinued mecobalamin (B12 ACTIVE ORAL) Take by mouth once daily. 0 Active Comment on above: Take by mouth once d aily. octreotide 30 mg injection (20 sources) Somatostatin Analog Start: 02-17-20 End: 02-17-20 inject 1 dose by intramuscular injection once 30 mg, INTRAMUSCULAR, ONCE, 1 dose, On Fri02/17/24 at 1100, REFRIGERATE - PROTECT FROM LIGHT Start: 01-16-2024 End: 01-16-2024 octreotide LAR 30 mg depot (monthly) injection (SandoSTATIN LAR) Start: 12-18-2023 End: 12-18-2023 octreotide LAR 30 mg depot (monthly) injection (SandoSTATIN LAR) Start: 12-10-2023 End: 01-09-2024 inject 1 mL by subcutaneous injection every eight hours octreotide (SANDOSTATIN) 100 mcg/mL soln Inject 1 mL subcutaneously every 8 hours. 90 mL 0 12/10/2023 01/09/2024 oxaliplatin (8 sources) [facility] [place] Start: 02-17-2024 End: 02-17-2024 117 mg (60 mg/m2 1.95 m2 Treatment Plan BSA from Recorded weight), INTRAVENOUS, Administer over 2 Hours, ONCE, 1 dose, On Fri02/17/24 at 1030, Approx Total Volume - Expires: 02/18/24 @ 1615 Administer concurrently with leucovorin. Hazardous Chemotherapy Drug: Use appropriate PPE. Antineoplastic Irritant with Vesicant Potential. Flush line with D5W before and after administration. Start: 01-27-2024 End: 01-27-2024 117 mg (60 mg/m2 1.95 m2 [place] atment Plan BSA from Recorded weight), INTRAVENOUS, Administer over 2 Hours, ONCE, 1 dose, On Fri01/27/24 at 1000, Administer concurrently with leucovorin. Approx Total Volume: exp 1400 02/04/24 (refrigerated) Hazardous Chemotherapy Drug: Use appropriate PPE. Antineoplastic Irritant with Vesicant Potential. Flush line with D5W before and after administration. Start: 01-14-2024 End: 01-14-2024 oxaliplatin 117 mg in D5W 56 3.4 mL (ELOXATIN) Start: 12-16-2023 End: 12-16-2023 oxaliplatin 171.7 mg in D5W 574.34 mL (ELOXATIN) Start: 11-18-2023 End: 11-18-2023 oxaliplatin 171.7 mg in D5W 574.34 mL (ELOXATIN) Start: 11-05-2023 End: 11-05-2023 oxaliplatin 171.7 mg in D5W 574.34 mL (ELOXATIN) Start: 10-21-2023 End: 10-21-2023 oxaliplatin 171.7 mg in D5W 574.34 mL (ELOXATIN) Start: 10-07-2023 End: 10-07-2023 oxaliplatin 171.7 mg in D5W 574.34 mL (ELOXATIN) 5 ml palonosetron 0.05 mg/ml injection (10 sources) Serotonin-3 Receptor Antagonist Start: 03-16-2024 End: 03-16-2024 0.25 mg, INTRAVENOUS, ONCE, 1 dose, On Fri03/16/24 at 0830, Flush IV line with NS prior to and following administration. Start: 03-02-2024 End: 03-02-2024 0.25 mg, INTRAVENOUS, ONCE, 1 dose, On Fri03/02/24 at 1100, Flush IV line with NS prior to and following administration. Start: 02-17-2024 End: 02-17-2024 0.25 mg, INTRAVENOUS, ONCE, 1 dose, On Fri02/17/24 at 1030, Flush IV line with NS prior to and following administration. Start: 01-27-2024 End: 01-27-2024 0.25 mg, INTRAVENOUS, ONCE, 1 dose, On Fri01/27/24 at 1000, Flush IV line with NS prior to and following administration. Start: 01-14-2024 End: 01-14-2024 palonosetron 0.25 mg injecti on (ALOXI) Start: 12-16-2023 End: 12-16-2023 palonosetron 0.25 mg injecti on (ALOXI) Start: 11-18-2023 End: 11-18-2023 palonosetron 0.25 mg injecti on (ALOXI) Start: 11-05-2023 End: 11-05-2023 palonosetron 0.25 mg injecti on (ALOXI) Start: 10-21-2023 End: 10-21-2023 palonosetron 0.25 mg injecti on (ALOXI) Start: 10-07-2023 End: 10-07-2023 palonosetron 0.25 mg injecti on (ALOXI) 0.6 ml pegfilgrastim-jmdb 10 mg/ml prefilled syringe (10 sources) Leukocyte Growth Factor Start: 03-18-2024 End: 03-18-2024 6 mg, SUBCUTANEOUS, ONCE, 1 dose, On Fri03/18/24 at 1130, Refrigerate - Protect From Light - Do Not Shake - Allow prefilled syringe to reach room temperature for at least 30 minutes prior to injection. Start: 03-04-2024 End: 03-04-2024 6 mg, SUBCUTANEOUS, ONCE, 1 dose, On Fri03/04/24 at 1230, Refrigerate - Protect From Light - Do Not Shake - Allow prefilled syringe to reach room temperature for at least 30 minutes prior to injection. Start: 02-19-2024 End: 02-19-2024 6 mg, SUBCUTANEOUS, ONCE, 1 dose, On Fri02/19/24 at 1430, Refrigerate - Protect From Light - Do Not Shake - Allow prefilled syringe to reach room temperature for at least 30 minutes prior to injection. Start: 01-29-2024 End: 01-29-2024 6 mg, SUBCUTANEOUS, ONCE, 1 dose, On [place] 01/29/24 at 1300, Refrigerate - Protect From Light - Do Not Shake - Allow prefilled syringe to reach room temperature for at least 30 minutes prior to injection. Start: 01-16-2024 End: 01-16-2024 pegfilgrastim-jmdb 6 mg inje ction (FULPHILA) Start: 12-18-2023 End: 12-18-2023 pegfilgrastim-jmdb 6 mg inje ction (FULPHILA) Start: 11-20-2023 End: 11-20-2023 pegfilgrastim-jmdb 6 mg inje ction (FULPHILA) Start: 11-07-2023 End: 11-07-2023 pegfilgrastim-jmdb 6 mg inje ction (FULPHILA) Start: 10-23-2023 End: 10-23-2023 pegfilgrastim-jmdb 6 mg inje ction (FULPHILA) Start: 10-09-2023 End: 10-09-2023 pegfilgrastim-jmdb 6 mg inje ction (FULPHILA) potassium chloride 10 meq extended release oral tablet (20 sources) Start: 10-20-2023 take 2 tablets by mouth twice daily potassium chloride (K-TAB) 10 mEq tablet Take 2 tablets by mouth two times a day. 120 tablet 5 10/20/2023 Suspended Start: 10-06-2023 End: 10-20-2023 take 1 tablet by mouth twice daily potassium chloride ER (KLOR-CON) 20 mEq tablet Take 1 tablet by mouth two times a day. 60 tablet 2 10/06/2023 10/20/2023 Discontinued Start: 09-23-2023 End: 10-06-2023 take 1 tablet by mouth once daily potassium chloride ER (KLOR-CON) 20 mEq tablet Take 1 tablet by mouth once daily. 30 tablet 2 09/23/2023 10/06/2023 Discontinued Comment on above: Take 1 tablet by [facility] once daily. potassium chloride iv piggyback 40 mEq (20 mEq x 2 doses) (1 source) Start: 11-18-2023 End: 11-18-2023 potassium chloride iv piggyback 40 mEq (20 mEq x 2 doses) potassium chloride iv piggyback 60 mEq (20 mEq x 3 doses) (3 sources) Start: 11-05-2023 End: 11-05-2023 potassium chloride iv piggyback 60 mEq (20 mEq x 3 doses) Start: 10-21-2023 End: 10-21-2023 potassium chloride iv piggyb ack 60 mEq (20 mEq x 3 doses) Start: 10-07-2023 End: 10-07-2023 potassium chloride iv piggyb ack 60 mEq (20 mEq x 3 doses) saw/vit E/sod jerson/lyc/beta/p yg (PROST[facility] ORAL) (20 sources) End: 09-22-2023 saw/vit E/sod jerson/lyc/beta/p yg (PROSTATE HEALTH ORAL) Take by mouth once daily. 0 09/22/2023 Discontinued saw/vit E/sod se l/lyc/beta/pyg (PROSTATE HEALTH ORAL) Take by mouth once daily. 0 Active Comment on above: Take by mouth once d aily. VITAMIN E ACETATE ORAL (20 sources) End: 11-27-2023 take 800 [IU] by mouth once daily VITAMIN E ACETATE ORAL Take 800 Units by mouth once daily. 11/27/2023 Discontinued (Erroneous entry) take 800 [IU] by mouth once zeeshan y VITAMIN E ACETATE ORAL Take 800 Units by mouth once daily. 0 Active Comment on above: Take 800 Units by ms ut once daily. VITAMIN E, BULK, MISC (20 sources) End: 11-27-2023 VITAMIN E, BULK, MISC 400 Units two times a day. 11/27/2023 Discontinued (Erroneous entry) VITAMIN E, BULK, MISC 400 Units two times a day. 0 Active Comment on above: 400 Units two times a day. 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; Translations: [Combined forms of age-related cataract, left eye] Onset: 10-02-2020 Resolved: 05-07-2021 10-02-2020 Chronic Coagulation and hemorrhagic disorders (1 source) Other specified coagulation defects; 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)] Onset: 08-04-2023 Chronic Deficiency and other anemia (20 sources) Anemia of chronic disease; Translations: [Anemia in other chronic diseases classified elsewhere] Onset: 12-09-2023 12-09-2023 Chronic Deficiency and other anemia (1 source) Anemia, unspecified; Translations: [Anemia, unspecified type] Onset: 11-28-2023 Episodic Diabetes mellitus with complications (4 sources) Hyperlipidemia; Translations: [Type 2 diabetes mellitus with other specified complication] 02-17-2024 Chronic Diverticulosis and diverticulitis (20 sources) Diverticulosis of colon; Translations: [Diverticulosis of large intestine without perforation or abscess without bleeding] Onset: 12-16-2007 12-16-2007 Chronic Essential hypertension (20 sources) Essential hypertension; Translations: [Essential (primary) hypertension] Onset: 05-14-2011 06-04-2021 Chronic Inflammation; infection of eye (except that caused by tuberculosis or sexually transmitteddisease) (20 sources) Bilateral punctate keratitis of eyes; Translations: [Punctate keratitis, bilateral] Onset: 10-02-2020 10-02-2020 Chronic Malignant neoplasm without specification of site (1 source) Malignant (primary) neoplasm, unspecified; Translations: [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)] Onset: 08-05-2023 Chronic Nutritional deficiencies (20 sources) Undernutrition; Translations: [Mild protein-calorie malnutrition] Onset: 08-04-2023 11-28-2023 Chronic Other aftercare (1 source) Encounter for adjustment and management of vascular access device; Translations: [Encounter for central line placement] Onset: 08-21-2023 Episodic Other aftercare (1 source) Other custodian athletic equipment (current) drug therapy; Translations: [Patient on antineoplastic chemotherapy regimen] Onset: 11-28-2023 Episodic Other gastrointestinal disorders (6 sources) Pancreatic malabsorption; Translations: [Intestinal malabsorption, unspecified] 10-13-2023 Chronic Other gastrointestinal disorders (1 source) Intestinal malabsorption, unspecified; Translations: [Pancreatic malabsorption] Onset: 11-26-2023 Chronic Other nervous system disorders (1 source) Other acute postprocedural pain; Translations: [Postoperative pain] Onset: 08-21-2023 Episodic Other screening for suspected conditions (not mental disorders or infectious disease) (7 sources) Abnormal findings diagnostic imaging of liver+biliary tract; Translations: [Abnormal findings on diagnostic imaging of liver and biliary tract] Onset: 08-04-2023 08-05-2023 Episodic Unclassified (1 source) Patient Education Onset: 03-26-2024 Past or Other Problems Problem Classification Problem Date Documented Da te Episodic/Chronic Abdominal hernia (20 sources) Inguinal hernia; Translations: [Unilateral inguinal hernia, without obstruction or gangrene, not specified as recurrent] Onset: 11-12-2007 11-12-2007 Episodic Acute and unspecified renal failure (20 sources) Acute renal failure syndrome; Translations: [Acute kidney failure, unspecified] Onset: 11-28-2023 Resolved: 12-10-2023 11-28-2023 Episodic Administrative/social admission (20 sources) Patient encounter status; Translations: [Counseling, unspecified] Onset: 05-15-2011 Resolved: 07-18-2011 08-15-2023 Episodic Blindness and vision defects (20 sources) Regular astigmatism of left eye; Translations: [Regular astigmatism, left eye] Onset: 10-02-2020 10-02-2020 Episodic Blindness and vision defects (20 sources) Regular astigmatism of right eye; Translations: [Regular astigmatism, right eye] Onset: 10-02-2020 10-02-2020 Episodic Deficiency and other anemia (20 sources) Iron deficiency anemia due to blood loss; Translations: [Iron deficiency anemia secondary to blood loss (chronic)] Onset: 12-16-2007 Resolved: 01-02-2011 01-02-2011 Chronic Deficiency and other anemia (20 sources) Iron deficiency anemia; Translations: [Iron deficiency anemia, unspecified] Resolved: 11-14-2011 06-04-2021 Episodic Deficiency and other anemia (20 sources) Anemia; Translations: [Anemia, unspecified] Onset: 11-28-2023 11-28-2023 Episodic Diabetes mellitus without complication (20 sources) Metabolic stress hyperglycemia; Translations: [Hyperglycemia, unspecified] Onset: 05-15-2011 11-18-2023 Episodic Diseases of white blood cells (20 sources) Febrile neutropenia; Translations: [Neutropenia, unspecified] Onset: 11-29-2023 Resolved: 12-10-2023 12-10-2023 Chronic Fluid and electrolyte disorders (20 sources) Decreased plasma volume; Translations: [Hypovolemia] Onset: 05-14-2011 Resolved: 12-10-2023 11-27-2023 Episodic Gastritis and duodenitis (20 sources) Gastritis; Translations: [Other gastritis without bleeding] Onset: 12-16-2007 12-16-2007 Episodic Malaise and fatigue (20 sources) Asthenia; Translations: [Weakness] Onset: 11-27-2023 11-27-2023 Episodic Nutritional deficiencies (20 sources) Iron deficiency; Translations: [Iron deficiency] Onset: 01-02-2011 Resolved: 11-14-2011 11-14-2011 Episodic Other aftercare (20 sources) Drug therapy finding; Translations: [Other custodian athletic equipment (current) drug therapy] Onset: 11-28-2023 11-28-2023 Episodic Other gastrointestinal disorders (20 sources) Diarrhea; Translations: [Diarrhea, unspecified] Onset: 11-27-2023 Resolved: 12-10-2023 09-22-2023 Episodic Other nervous system disorders (20 sources) Postoperative pain ; Translations: [Other acute postprocedural pain] Onset: 05-14-2011 Resolved: 07-18-2011 06-04-2021 Episodic Pancreatic disorders (not diabetes) (1 source) Disease of pancreas, unspecified; Translations: [Pancreatic malabsorption] Onset: 11-26-2023 Episodic Pleurisy; pneumothorax; pulmonary collapse (20 sources) Atelectasis; Translations: [Atelectasis] Onset: 05-14-2011 Resolved: 05-19-2011 Episodic Septicemia (except in labor) (20 sources) Acute kidney injury due to sepsis; Translations: [Sepsis, unspecified organism] Onset: 11-27-2023 Resolved: 12-10-2023 11-27-2023 Episodic Results Test Name Value Interpretation Reference Range Facility CNNURSEon 03-26-2024 CNNURSE Normal [facility] CNPNon 03-25-2024 CNPN Normal [facility] CBC W Auto Differential pane l (Bld)on 03-15-2024 Basophils (Bld) [#/Vol] 0.10 10*3/uL [facility] Basophils/100 WBC (Bld) 0.6 % [facility] Differential cell count method Nom (Bld) Auto [facility] Eosinophils (Bld) [#/Vol] 0.12 10*3/uL [facility] Eosinophils/100 WBC (Bld) 0.7 % [facility] Erythrocyte distribution width (RBC) [Ratio] 17.1 % High 11.5 - 15.0 % [facility] Hematocrit (Bld) [Volume fraction] 31.9 % Low 39.0 - 51.0 % [facility] Hemoglobin (Bld) [Mass/Vol] 10.3 g/dL Low 13.0 - 17.0 g/dL [facility] Immature granulocytes (Bld) [#/Vol] 0.47 10*3/uL High [facility] Immature granulocytes/100 WBC (Bld) 2.9 % [facility] Interpretation and review of laboratory results Abnormal [facility] Lymphocytes (Bld) [#/Vol] 1.40 10*3/uL [facility] Lymphocytes/100 WBC (Bld) 8.7 % [facility] MCH (RBC) [Entitic mass] 30.4 pg 26.0 - 34.0 pg [facility] MCHC (RBC) [Mass/Vol] 32.3 g/dL 30.5 - 36.0 g/dL [facility] MCV (RBC) [Entitic vol] 94.1 fL 80.0 - 100.0 fL [facility] Monocytes (Bld) [#/Vol] 1.12 10*3/uL High [facility] Monocytes/100 WBC (Bld) 6.9 % [facility] Neutrophils (Bld) [#/Vol] 12.92 10*3/uL High [facility] Neutrophils/100 WBC (Bld) 80.2 % [facility] Nucleated RBC (Bld) [#/Vol] [facility] Nucleated RBC/100 WBC (Bld) [Ratio] 0.0 % /100 WBC [facility] Platelet mean volume (Bld) [Entitic vol] 10.5 fL 9.0 - 12.7 fL [facility] Platelets (Bld) [#/Vol] 179 10*3/uL [facility] RBC (Bld) [#/Vol] 3.39 10*6/uL Low 4.20 - 6.00 m/uL [facility] WBC (Bld) [#/Vol] 16.13 10*3/uL High [facility] Basophils (Bld) [#/Vol] 0.10 10*3/uL Normal <0.11 [facility] Comment on above: Order Comment: Speci men Type: BLOOD SPECIMENOrdering Facility: [facility] Address: [address] [place] [address] Performed By: #### 5 7021-8 ####[facility] MILLTOWNCLIA [id number] [place] [address] [place] Basophils/100 WBC (Bld) 0.6 % Normal [facility] Comment on above: Order Comment: Speci men Type: BLOOD SPECIMENOrdering Facility: [facility] Address: [address] [place] [address] Performed By: #### 5 7021-8 ####[facility] MEDICAL CENTERLIA [id number] [place] [address] [place] Differential cell count method Nom (Bld) Auto Normal [facility] Comment on above: Order Comment: Speci men Type: BLOOD SPECIMENOrdering Facility: [facility] Address: [address] [place] [address] Performed By: #### 5 7021-8 ####[facility] MILLTOWNCLIA [id number] [place] [address] [place] Eosinophils (Bld) [#/Vol] 0.12 10*3/uL Normal <0.46 [facility] Comment on above: Order Comment: Speci men Type: BLOOD SPECIMENOrdering Facility: [facility] Address: [address] [place] [address] Performed By: #### 5 7021-8 ####[facility] MILLWNCLIA [id number] [place] [address] [place] Eosinophils/100 WBC (Bld) 0.7 % Normal [facility] Comment on above: Order Comment: Speci men Type: BLOOD SPECIMENOrdering Facility: [facility] Address: [address] [place] [address] Performed By: #### 5 7021-8 ####[facility]ITALNCMOAB [facility] [id number] [place] [address] [place] Erythrocyte distribution width (RBC) [Ratio] 17.1 % High 11.5-15.0 [facility] Comment on above: Order Comment: Speci men Type: BLOOD SPECIMENOrdering Facility: [facility] Address: [address] [place] [address] Performed By: #### 5 7021-8 ####[facility]ITALNCMO[facility] [id number] [place] [address] [place] Hematocrit (Bld) [Volume fraction] 31.9 % Low 39.0-51.0 [facility] Comment on above: Order Comment: Speci men Type: BLOOD SPECIMENOrdering Facility: [facility] Address: [address] [place] [address] Performed By: #### 5 7021-8 ####[facility] HOSPITALNCLI [id number] [place] [address] [place] Hemoglobin (Bld) [Mass/Vol] 10.3 g/dL Low 13.0-17.0 [facility] Comment on above: Order Comment: Speci men Type: BLOOD SPECIMENOrdering Facility: [facility] Address: [address] [place] [address] Performed By: #### 5 7021-8 ####[facility] HOSPITALNCLI [id number] [place] [address] [place] Immature granulocytes (Bld) [#/Vol] 0.47 10*3/uL High <0.10 [facility] Comment on above: Order Comment: Speci men Type: BLOOD SPECIMENOrdering Facility: [facility] Address: [address] [place] [address] Performed By: #### 5 7021-8 ####[facility] VAADRIAN [id number] [place] [address] [place] Immature granulocytes/100 WBC (Bld) 2.9 % Normal [facility] Comment on above: Order Comment: Speci men Type: BLOOD SPECIMENOrdering Facility: [facility] Address: [address] [place] [address] Performed By: #### 5 7021-8 ####[facility] HOSPITALCRISTOFERMOAB REGIONAL [facility] [id number] [place] [address] [place] Lymphocytes (Bld) [#/Vol] 1.40 10*3/uL Normal 1.00-4.00 [facility] Comment on above: Order Comment: Speci men Type: BLOOD SPECIMENOrdering Facility: [facility] Address: [address] [place] [address] Performed By: #### 5 7021-8 ####[facility] [id number] [place] [address] [place] Lymphocytes/100 WBC (Bld) 8.7 % Normal [facility] Comment on above: Order Comment: Speci men Type: BLOOD SPECIMENOrdering Facility: [facility] Address: [address] [place] [address] Performed By: #### 5 7021-8 ####[facility] MEDICAL CENTERLIA [id number] [place] [address] [place] MCH (RBC) [Entitic mass] 30.4 pg Normal 26.0-34.0 [facility] Comment on above: Order Comment: Speci men Type: BLOOD SPECIMENOrdering Facility: [facility] Address: [address] [place] [address] Performed By: #### 5 7021-8 ####[facility] HOSPITALNCLIA [id number] [place] [address] [place] MCHC (RBC) [Mass/Vol] 32.3 g/dL Normal 30.5-36.0 [facility] Comment on above: Order Comment: Speci men Type: BLOOD SPECIMENOrdering Facility: [facility] Address: [address] [place] [address] Performed By: #### 5 7021-8 ####[facility] FLORIDAA [id number] [place] [address] [place] MCV (RBC) [Entitic vol] 94.1 fL Normal 80.0-100.0 [facility] Comment on above: Order Comment: Speci men Type: BLOOD SPECIMENOrdering Facility: [facility] Address: [address] [place] [address] Performed By: #### 5 7021-8 ####[facility] [id number] [place] [address] [place] Monocytes (Bld) [#/Vol] 1.12 10*3/uL High <0.87 [facility] Comment on above: Order Comment: Speci men Type: BLOOD SPECIMENOrdering Facility: [facility] Address: [address] [place] [address] Performed By: #### 5 7021-8 ####[facility] FLORIDAA [id number] [place] [address] [place] Monocytes/100 WBC (Bld) 6.9 % Normal [facility] Comment on above: Order Comment: Speci men Type: BLOOD SPECIMENOrdering Facility: [facility] Address: [address] [place] [address] Performed By: #### 5 7021-8 ####[facility] HOSPITALNCLIA [id number] [place] [address] [place] Neutrophils (Bld) [#/Vol] 12.92 10*3/uL High 1.45-7.50 [facility] Comment on above: Order Comment: Speci men Type: BLOOD SPECIMENOrdering Facility: [facility] Address: [address] [place] [address] Performed By: #### 5 7021-8 ####[facility] CENTERLIA [id number] [place] [address] [place] Neutrophils/100 WBC (Bld) 80.2 % Normal [facility] Comment on above: Order Comment: Speci men Type: BLOOD SPECIMENOrdering Facility: [facility] Address: [address] [place] [address] Performed By: #### 5 7021-8 ####[facility] [id number] [place] [address] [place] Nucleated RBC (Bld) [#/Vol] 10*3/uL Normal <0.01 [facility] Comment on above: Order Comment: Speci men Type: BLOOD SPECIMENOrdering Facility: [facility] Address: [address] [place] [address] Performed By: #### 5 7021-8 ####[facility] [id number] [place] [address] [place] Nucleated RBC/100 WBC (Bld) [Ratio] 0.0 /100 WBC Normal [facility] Comment on above: Order Comment: Speci men Type: BLOOD SPECIMENOrdering Facility: [facility] Address: [address] [place] [address] Performed By: #### 5 7021-8 ####[facility] [id number] [place] [address] [place] Platelet mean volume (Bld) [Entitic vol] 10.5 fL Normal 9.0-12.7 [facility] Comment on above: Order Comment: Speci men Type: BLOOD SPECIMENOrdering Facility: [facility] Address: [address] [place] [address] Performed By: #### 5 7021-8 ####[facility] MARYNCLIA [id number] [place] [address] [place] Platelets (Bld) [#/Vol] 179 10*3/uL Normal 150-400 [facility] Comment on above: Order Comment: Speci men Type: BLOOD SPECIMENOrdering Facility: [facility] Address: [address] [place] [address] Performed By: #### 5 7021-8 ####[facility] HOSPITALNCLIA [id number] [place] [address] [place] RBC (Bld) [#/Vol] 3.39 10*6/uL Low 4.20-6.00 [facility] Comment on above: Order Comment: Speci men Type: BLOOD SPECIMENOrdering Facility: [facility] Address: [address] [place] [address] Performed By: #### 5 7021-8 ####[facility] HOSPITALNCLIA [id number] [place] [address] [place] WBC (Bld) [#/Vol] 16.13 10*3/uL High 3.70-11.00 [facility] Comment on above: Order Comment: Speci men Type: BLOOD SPECIMENOrdering Facility: [facility] Address: [address] [place] [address] Performed By: #### 5 7021-8 ####[facility] HOSPITALNCLIA [id number] [place] [address] [place] CNOVSPon 03-15-2024 CNOVSP Normal [facility] CNPNon 03-15-2024 CNPN Normal [facility] Cancer Ag19-9 SerPl-aCncon 1 Cancer Ag 19-9 Qn 62.0 [arb'U]/mL High <36.0 [facility] Comment on above: Order Comment: Speci men Type: BLOOD SPECIMENOrdering Facility: [facility] Address: [address] [place] [address] Result Comment: Rust er antigen 19-9 test is used as an aid in monitoring response to treatment or recurrence in patients with established pancreatic, hepatobiliary, or gastrointestinal malignancies. Clinical correlation is required.The CA 19-9 Antigen test was performed using the [facility] Cent[facility] DXI paramagnetic particle chemiluminescent immunoassay method. Results obtained with different assay methods or kits cannot be used interchangeably. Performed By: #### 2 4108-3 ####[facility] LABCLIA [id number] [place] [address] [place] Comprehensive metabolic 2000 panelOrdered By: Felicia Macias on 03-15-2024 Albumin [Mass/Vol] 4.3 g/dL 3.9 - 4.9 g/dL [facility] ALP [Catalytic activity/Vol] 255 U/L High 38 - 113 U/L [facility] ALT [Catalytic activity/Vol] 21 U/L 10 - 54 U/L [facility] Anion gap [Moles/Vol] 16 mmol/L High 8 - 15 mmol/L [facility] AST [Catalytic activity/Vol] 31 U/L 14 - 40 U/L [facility] Bilirubin [Mass/Vol] 0.2 mg/dL 0.2 - 1.3 mg/dL [facility] Calcium [Mass/Vol] 9.5 mg/dL 8.5 - 10. 2 mg/dL [facility] Chloride [Moles/Vol] 112 mmol/L High 98 - 107 mmol/L [facility] CO2 [Moles/Vol] 14 mmol/L Low 22 - 30 mmol/L [facility] Creatinine [Mass/Vol] 1.75 mg/dL High 0.73 - 1.22 mg/dL [facility] GFR/1.73 sq M.predicted among non-blacks MDRD (S/P/Bld) [Vol rate/Area] 41 mL/min/{1.73_m2} Low - PINF [facility] Comment on above: Estimated Glomerular Filtration Rate (eGFR) is calculated using the 2020 CKD-EPI creatinine equation. This equation utilizes serum creatinine, sex, and age as parameters. The creatinine assay has traceable calibration to isotope dilution-mass spectrometry. Refer to KDIGO guidelines for clinical interpretation. In patients with unstable renal function, e.g. those with acute kidney injury, the eGFR may not accurately reflect actual GFR. Glucose [Mass/Vol] 230 mg/dL High 74 - 99 mg/dL [facility] Comment on above: The [place] Diabete s Association (ADA) provides guidance for cutoff values for fasting glucose and random glucose. The ADA defines fasting as no caloric intake for at least 8 hours. Fasting plasma glucose results between 100 to 125 mg/dL indicate increased risk for diabetes (prediabetes). Fasting plasma glucose results greater than or equal to 126 mg/dL meet the criteria for diagnosis of diabetes. In the absence of unequivocal hyperglycemia, results should be confirmed by repeat testing. In a patient with classic symptoms of hyperglycemia or hyperglycemic crisis, random plasma glucose results greater than or equal to 200 mg/dL meet the criteria for diagnosis of diabetes. Reference: Standards of Medical Care in Diabetes 2016, [place] [employer] Association. Diabetes Care. 2016.39(Suppl 1). Potassium [Moles/Vol] 3.7 mmol/L 3.7 - 5.1 mmol/L [facility] Protein [Mass/Vol] 6.6 g/dL 6.3 - 8.0 g/dL [facility] Sodium [Moles/Vol] 142 mmol/L 136 - 144 mmol/L [facility] Urea nitrogen [Mass/Vol] 29 mg/dL High 9 - 24 mg/dL [facility] Comprehensive metabolic 2000 panelon 03-15-2024 Albumin [Mass/Vol] 4.3 g/dL Normal 3.9-4.9 [facility] Comment on above: Order Comment: Lay barkley Type: BLOOD SPECIMENOrdering Facility: [facility] Address: [address] [place] [address] Performed By: #### 1 9123-9, 07364-8 ####[facility]ENTERТАТЬЯНА [id number] [place] [address] [place] ALP [Catalytic activity/Vol] 255 U/L High 38-113 [facility] Comment on above: Order Comment: Lay men Type: BLOOD SPECIMENOrdering Facility: [facility] Address: [address] [place] [address] Performed By: #### 1 9123-9, 63114-8 ####[facility] CATHY VAANDIA [id number] [place] [address] [place] ALT [Catalytic activity/Vol] 21 U/L Normal 10-54 [facility] Comment on above: Order Comment: Speci men Type: BLOOD SPECIMENOrdering Facility: [facility] Address: [address] [place] [address] Performed By: #### 1 9123-9, 70364-1 ####[facility] VAQUECHEENCROEBRTA [id number] [place] [address] [place] Anion gap [Moles/Vol] 16 mmol/L High 8-15 [facility] Comment on above: Order Comment: Speci men Type: BLOOD SPECIMENOrdering Facility: [facility] Address: [address] [place] [address] Performed By: #### 1 9123-9, 37866-5 ####[facility] VAQUECHEENCROBERTA [id number] [place] [address] [place] AST [Catalytic activity/Vol] 31 U/L Normal 14-40 [facility] Comment on above: Order Comment: Speci men Type: BLOOD SPECIMENOrdering Facility: [facility] Address: [address] [place] [address] Performed By: #### 1 9123-9, 87852-6 ####[facility] HOSPITALNCLIA [id number] [place] [address] [place] Bilirubin [Mass/Vol] 0.2 mg/dL Normal 0.2-1.3 [facility] Comment on above: Order Comment: Speci men Type: BLOOD SPECIMENOrdering Facility: [facility] Address: [address] [place] [address] Performed By: #### 1 9123-9, 74273-5 ####[facility] CATHY MILLTOWNCLIA [id number] [place] [address] [place] Calcium [Mass/Vol] 9.5 mg/dL Normal 8.5-10.2 [facility] Comment on above: Order Comment: Speci men Type: BLOOD SPECIMENOrdering Facility: [facility] Address: [address] [place] [address] Performed By: #### 1 9123-9, ####[facility] MILLTOWNCLIA [id number] [place] [address] [place] Chloride [Moles/Vol] 112 mmol/L High 98-107 [facility] Comment on above: Order Comment: Speci men Type: BLOOD SPECIMENOrdering Facility: [facility] Address: [address] [place] [address] Performed By: #### 1 91239, ####[facility] MILLWNCLIA [id number] [place] [address] [place] CO2 [Moles/Vol] 14 mmol/L Low 22-30 [facility] Comment on above: Order Comment: Speci men Type: BLOOD SPECIMENOrdering Facility: [facility] Address: [address] [place] [address] Performed By: #### 1 9123-9, ####[facility] MILLTOWNCLIA [id number] [place] [address] [place] Creatinine [Mass/Vol] 1.75 mg/dL High 0.73-1.22 [facility] Comment on above: Order Comment: Speci men Type: BLOOD SPECIMENOrdering Facility: [facility] Address: [address] [place] [address] Performed By: #### 1 9123-9, 31339-2 ####[facility] MILLTOWNCLIA [id number] [place] [address] [place] Creatinine and Glomerular filtration rate.predicted panel (S/P/Bld) 41 mL/min/1.73m??? Low >=60 [facility] Comment on above: Order Comment: Lay barkley Type: BLOOD SPECIMENOrdering Facility: [facility] Address: [address] [place] [address] Result Comment: Emely mated Glomerular Filtration Rate (eGFR) is calculated using the 2020 CKD-EPI creatinine equation. This equation utilizes serum creatinine, sex, and age as parameters. The creatinine assay has traceable calibration to isotope dilution-mass spectrometry. Refer to KDIGO guidelines for clinical interpretation. In patients with unstable renal function, e.g. those with acute kidney injury, the eGFR may not accurately reflect actual GFR. Performed By: #### 1 9123-9, 69455-7 ####[facility] [id number] [place] [address] [place] Glucose [Mass/Vol] 230 mg/dL High 74-99 [facility] Comment on above: Order Comment: Lay barkley Type: BLOOD SPECIMENOrdering Facility: [facility] Address: [address] [place] [address] Result Comment: The [place] Diabetes Association (ADA) provides guidance for cutoff values for fasting glucose and random glucose. The ADA defines fasting as no caloric intake for at least 8 hours. Fasting plasma glucose results between 100 to 125 mg/dL indicate increased risk for diabetes (prediabetes).Fasting plasma glucose results greater than or equal to 126 mg/dL meet the criteria for diagnosis of diabetes. In the absence of unequivocal hyperglycemia, results should be confirmed by repeat testing. In a patient with classic symptoms of hyperglycemia or hyperglycemic crisis, random plasma glucose results greater than or equal to 200 mg/dL meet the criteria for diagnosis of diabetes.Reference: Standards of Medical Care in Diabetes 2016, [place] Diabetes Association. Diabetes Care. 2016.39(Suppl 1). Performed By: #### 1 9123-9, 01179-0 ####[facility]ENTERLI [id number] [place] [address] [place] Potassium [Moles/Vol] 3.7 mmol/L Normal 3.7-5.1 [facility] Comment on above: Order Comment: Speci men Type: BLOOD SPECIMENOrdering Facility: [facility] Address: [address] [place] [address] Performed By: #### 1 9123-9, 01301-8 ####[facility]ITAL[facility] [id number] [place] [address] [place] Protein [Mass/Vol] 6.6 g/dL Normal 6.3-8.0 [facility] Comment on above: Order Comment: Speci men Type: BLOOD SPECIMENOrdering Facility: [facility] Address: [address] [place] [address] Performed By: #### 1 9123-9, 17529-5 ####[facility]ITALADRIAN [id number] [place] [address] [place] Sodium [Moles/Vol] 142 mmol/L Normal 136-144 [facility] Comment on above: Order Comment: Speci men Type: BLOOD SPECIMENOrdering Facility: [facility] Address: [address] [place] [address] Performed By: #### 1 9123-9, 15416-8 ####[facility]PITALITALOA [id number] [place] [address] [place] Urea nitrogen [Mass/Vol] 29 mg/dL High 9-24 [facility] Comment on above: Order Comment: Speci men Type: BLOOD SPECIMENOrdering Facility: [facility] Address: [address] [place] [address] Performed By: #### 1 9123-9, 43169-7 ####[facility] HOSPITALNCLIA [id number] [place] [address] [place] MAGNESIUM BLDon 03-15-2024 Magnesium [Mass/Vol] 1.5 mg/dL Low 1.7 - 2.3 mg/dL [facility] Magnesium SerPl-mCncon 03-15 Magnesium [Mass/Vol] 1.5 mg/dL Low 1.7-2.3 [facility] Comment on above: Order Comment: Speci men Type: BLOOD SPECIMENOrdering Facility: [facility] Address: [address] [place] [address] Performed By: #### 1 9123-9, 30565-3 ####[facility] [id number] [place] [id number] [place] [address] [place] No Panel InformationOrdered By: Felicia Macias on 03-15-2024 Interpretation and review of laboratory results Abnormal [facility] CBC W Auto Differential pane l (Bld)on 03-01-2024 Basophils (Bld) [#/Vol] 0.08 10*3/uL [facility] Basophils/100 WBC (Bld) 0.5 % [facility] Differential cell count method Nom (Bld) Auto [facility] Eosinophils (Bld) [#/Vol] 0.14 10*3/uL [facility] Eosinophils/100 WBC (Bld) 0.9 % [facility] Erythrocyte distribution width (RBC) [Ratio] 16.3 % High 11.5 - 15.0 % [facility] Hematocrit (Bld) [Volume fraction] 30.4 % Low 39.0 - 51.0 % [facility] Hemoglobin (Bld) [Mass/Vol] 9.6 g/dL Low 13.0 - 17.0 g/dL [facility] Immature granulocytes (Bld) [#/Vol] 0.26 10*3/uL High [facility] Immature granulocytes/100 WBC (Bld) 1.7 % [facility] Interpretation and review of laboratory results Abnormal [facility] Lymphocytes (Bld) [#/Vol] 1.21 10*3/uL [facility] Lymphocytes/100 WBC (Bld) 8.1 % [facility] MCH (RBC) [Entitic mass] 29.9 pg 26.0 - 34.0 pg [facility] MCHC (RBC) [Mass/Vol] 31.6 g/dL 30.5 - 36.0 g/dL [facility] MCV (RBC) [Entitic vol] 94.7 fL 80.0 - 100.0 fL [facility] Monocytes (Bld) [#/Vol] 1.16 10*3/uL High NINF [facility] Monocytes/100 WBC (Bld) 7.7 % [facility] Neutrophils (Bld) [#/Vol] 12.12 10*3/uL High [facility] Neutrophils/100 WBC (Bld) 81.1 % [facility] Nucleated RBC (Bld) [#/Vol] NINF [facility] Nucleated RBC/100 WBC (Bld) [Ratio] 0.0 % /100 WBC [facility] Platelet mean volume (Bld) [Entitic vol] 10.4 fL 9.0 - 12.7 fL [facility] Platelets (Bld) [#/Vol] 150 10*3/uL [facility] RBC (Bld) [#/Vol] 3.21 10*6/uL Low 4.20 - 6.00 m/uL [facility] WBC (Bld) [#/Vol] 14.97 10*3/uL High [facility] Basophils (Bld) [#/Vol] 0.08 10*3/uL Normal <0.11 [facility] Comment on above: Order Comment: Speci men Type: BLOOD SPECIMENOrdering Facility: [facility] Address: [address] [place] [address] Performed By: #### 5 7021-8 ####[facility] [id number] [place] [address] [place] Basophils/100 WBC (Bld) 0.5 % Normal [facility] Comment on above: Order Comment: Speci men Type: BLOOD SPECIMENOrdering Facility: [facility] Address: [address] [place] [address] Performed By: #### 5 7021-8 ####[facility] [id number] [place] [address] [place] Differential cell count method Nom (Bld) Auto Normal [facility] Comment on above: Order Comment: Speci men Type: BLOOD SPECIMENOrdering Facility: [facility] Address: [address] [place] [address] Performed By: #### 5 7021-8 ####[facility] FLORIDAA [id number] [place] [address] [place] Eosinophils (Bld) [#/Vol] 0.14 10*3/uL Normal <0.46 [facility] Comment on above: Order Comment: Speci men Type: BLOOD SPECIMENOrdering Facility: [facility] Address: [address] [place] [address] Performed By: #### 5 7021-8 ####[facility] [id number] [place] [address] [place] Eosinophils/100 WBC (Bld) 0.9 % Normal [facility] Comment on above: Order Comment: Speci men Type: BLOOD SPECIMENOrdering Facility: [facility] Address: [address] [place] [address] Performed By: #### 5 7021-8 ####[facility] [id number] [place] [address] [place] Erythrocyte distribution width (RBC) [Ratio] 16.3 % High 11.5-15.0 [facility] Comment on above: Order Comment: Speci men Type: BLOOD SPECIMENOrdering Facility: [facility] Address: [address] [place] [address] Performed By: #### 5 7021-8 ####[facility] CENTERLIA [id number] [place] [address] [place] Hematocrit (Bld) [Volume fraction] 30.4 % Low 39.0-51.0 [facility] Comment on above: Order Comment: Speci men Type: BLOOD SPECIMENOrdering Facility: [facility] Address: [address] [place] [address] Performed By: #### 5 7021-8 ####[facility] HOSPITALNCROBERTA [id number] [place] [address] [place] Hemoglobin (Bld) [Mass/Vol] 9.6 g/dL Low 13.0-17.0 [facility] Comment on above: Order Comment: Speci men Type: BLOOD SPECIMENOrdering Facility: [facility] Address: [address] [place] [address] Performed By: #### 5 7021-8 ####[facility] MEDICAL CENTERCAMILLE [id number] [place] [address] [place] Immature granulocytes (Bld) [#/Vol] 0.26 10*3/uL High <0.10 [facility] Comment on above: Order Comment: Speci men Type: BLOOD SPECIMENOrdering Facility: [facility] Address: [address] [place] [address] Performed By: #### 5 7021-8 ####[facility] [id number] [place] [address] [place] Immature granulocytes/100 WBC (Bld) 1.7 % Normal [facility] Comment on above: Order Comment: Speci men Type: BLOOD SPECIMENOrdering Facility: [facility] Address: [address] [place] [address] Performed By: #### 5 7021-8 ####[facility] MEDICAL CENTERROBERTA [id number] [place] [address] [place] Lymphocytes (Bld) [#/Vol] 1.21 10*3/uL Normal 1.00-4.00 [facility] Comment on above: Order Comment: Speci men Type: BLOOD SPECIMENOrdering Facility: [facility] Address: [address] [place] [address] Performed By: #### 5 7021-8 ####[facility] HOSPITALNCLIA [id number] [place] [address] [place] Lymphocytes/100 WBC (Bld) 8.1 % Normal [facility] Comment on above: Order Comment: Speci men Type: BLOOD SPECIMENOrdering Facility: [facility] Address: [address] [place] [address] Performed By: #### 5 7021-8 ####[facility] HOSPITALNCMOAB [facility] [id number] [place] [address] [place] MCH (RBC) [Entitic mass] 29.9 pg Normal 26.0-34.0 [facility] Comment on above: Order Comment: Speci men Type: BLOOD SPECIMENOrdering Facility: [facility] Address: [address] [place] [address] Performed By: #### 5 7021-8 ####[facility] [id number] [place] [address] [place] MCHC (RBC) [Mass/Vol] 31.6 g/dL Normal 30.5-36.0 [facility] Comment on above: Order Comment: Speci men Type: BLOOD SPECIMENOrdering Facility: [facility] Address: [address] [place] [address] Performed By: #### 5 7021-8 ####[facility] HOSPITALNCMOAB [facility] [id number] [place] [address] [place] MCV (RBC) [Entitic vol] 94.7 fL Normal 80.0-100.0 [facility] Comment on above: Order Comment: Speci men Type: BLOOD SPECIMENOrdering Facility: [facility] Address: [address] [place] [address] Performed By: #### 5 7021-8 ####[facility] [id number] [place] [address] [place] Monocytes (Bld) [#/Vol] 1.16 10*3/uL High <0.87 [facility] Comment on above: Order Comment: Speci men Type: BLOOD SPECIMENOrdering Facility: [facility] Address: [address] [place] [address] Performed By: #### 5 7021-8 ####[facility] MARYNCLIA [id number] [place] [address] [place] Monocytes/100 WBC (Bld) 7.7 % Normal [facility] Comment on above: Order Comment: Speci men Type: BLOOD SPECIMENOrdering Facility: [facility] Address: [address] [place] [address] Performed By: #### 5 7021-8 ####[facility] HOSPITALCRISTOFERLIA [id number] [place] [address] [place] Neutrophils (Bld) [#/Vol] 12.12 10*3/uL High 1.45-7.50 [facility] Comment on above: Order Comment: Speci men Type: BLOOD SPECIMENOrdering Facility: [facility] Address: [address] [place] [address] Performed By: #### 5 7021-8 ####[facility] HOSPITALNCLIA [id number] [place] [address] [place] Neutrophils/100 WBC (Bld) 81.1 % Normal [facility] Comment on above: Order Comment: Speci men Type: BLOOD SPECIMENOrdering Facility: [facility] Address: [address] [place] [address] Performed By: #### 5 7021-8 ####[facility] VAWNCLIA [id number] [place] [address] [place] Nucleated RBC (Bld) [#/Vol] 10*3/uL Normal <0.01 [facility] Comment on above: Order Comment: Speci men Type: BLOOD SPECIMENOrdering Facility: [facility] Address: [address] [place] [address] Performed By: #### 5 7021-8 ####[facility] FLORIDAA [id number] [place] [address] [place] Nucleated RBC/100 WBC (Bld) [Ratio] 0.0 /100 WBC Normal [facility] Comment on above: Order Comment: Speci men Type: BLOOD SPECIMENOrdering Facility: [facility] Address: [address] [place] [address] Performed By: #### 5 7021-8 ####[facility] [id number] [place] [address] [place] Platelet mean volume (Bld) [Entitic vol] 10.4 fL Normal 9.0-12.7 [facility] Comment on above: Order Comment: Speci men Type: BLOOD SPECIMENOrdering Facility: [facility] Address: [address] [place] [address] Performed By: #### 5 7021-8 ####[facility] [id number] [place] [address] [place] Platelets (Bld) [#/Vol] 150 10*3/uL Normal 150-400 [facility] Comment on above: Order Comment: Speci men Type: BLOOD SPECIMENOrdering Facility: [facility] Address: [address] [place] [address] Performed By: #### 5 7021-8 ####[facility] [id number] [place] [address] [place] RBC (Bld) [#/Vol] 3.21 10*6/uL Low 4.20-6.00 [facility] Comment on above: Order Comment: Speci men Type: BLOOD SPECIMENOrdering Facility: [facility] Address: [address] [place] [address] Performed By: #### 5 7021-8 ####[facility] MEDICAL CENTERLIA [id number] [place] [address] [place] WBC (Bld) [#/Vol] 14.97 10*3/uL High 3.70-11.[address] [facility] Comment on above: Order Comment: Speci men Type: BLOOD SPECIMENOrdering Facility: [facility] Address: [address] [place] [address] Performed By: #### 5 7021-8 ####[facility] [id number] [place] [id number] [place] CNOVSPon 03-01-2024 CNOVSP Normal [facility] Cancer Ag19-9 SerPl-aCncon 0 03-01-2024 Cancer Ag 19-9 Qn 77.0 [arb'U]/mL High <36.0 [facility] Comment on above: Order Comment: Speci men Type: BLOOD SPECIMENOrdering Facility: [facility] Address: [address] [place] [address] Result Comment: Rust er antigen 19-9 test is used as an aid in monitoring response to treatment or recurrence in patients with established pancreatic, hepatobiliary, or gastrointestinal malignancies. Clinical correlation is required.The CA 19-9 Antigen test was performed using the Álvaro Grawn [employer] DXI paramagnetic particle chemiluminescent immunoassay method. Results obtained with different assay methods or kits cannot be used interchangeably. Performed By: #### 2 4108-3 ####[facility] LABCLIA [id number] [place] [address] [place] Comprehensive metabolic 2000 panelOrdered By: Vaishali Araiza on 03-01-2024 Albumin [Mass/Vol] 3.9 g/dL 3.9 - 4.9 g/dL [facility] ALP [Catalytic activity/Vol] 245 U/L High 38 - 113 U/L [facility] ALT [Catalytic activity/Vol] 22 U/L 10 - 54 U/L [facility] Anion gap [Moles/Vol] 11 mmol/L 8 - 15 mmol/L [facility] AST [Catalytic activity/Vol] 36 U/L 14 - 40 U/L [facility] Bilirubin [Mass/Vol] 0.3 mg/dL 0.2 - 1.3 mg/dL [facility] Calcium [Mass/Vol] 8.9 mg/dL 8.5 - 10. 2 mg/dL [facility] Chloride [Moles/Vol] 111 mmol/L High 98 - 107 mmol/L [facility] CO2 [Moles/Vol] 16 mmol/L Low 22 - 30 mmol/L [facility] Creatinine [Mass/Vol] 1.81 mg/dL High 0.73 - 1.22 mg/dL [facility] GFR/1.73 sq M.predicted among non-blacks MDRD (S/P/Bld) [Vol rate/Area] 39 mL/min/{1.73_m2} Low - PINF [facility] Comment on above: Estimated Glomerular Filtration Rate (eGFR) is calculated using the 2020 CKD-EPI creatinine equation. This equation utilizes serum creatinine, sex, and age as parameters. The creatinine assay has traceable calibration to isotope dilution-mass spectrometry. Refer to KDIGO guidelines for clinical interpretation. In patients with unstable renal function, e.g. those with acute kidney injury, the eGFR may not accurately reflect actual GFR. Glucose [Mass/Vol] 209 mg/dL High 74 - 99 mg/dL [facility] Comment on above: The [place] Diabete [place] Association (ADA) provides guidance for cutoff values for fasting glucose and random glucose. The ADA defines fasting as no caloric intake for at least 8 hours. Fasting plasma glucose results between 100 to 125 mg/dL indicate increased risk for diabetes (prediabetes). Fasting plasma glucose results greater than or equal to 126 mg/dL meet the criteria for diagnosis of diabetes. In the absence of unequivocal hyperglycemia, results should be confirmed by repeat testing. In a patient with classic symptoms of hyperglycemia or hyperglycemic crisis, random plasma glucose results greater than or equal to 200 mg/dL meet the criteria for diagnosis of diabetes. Reference: Standards of Medical Care in Diabetes 2016, [place] [employer] Association. Diabetes Care. 2016.39(Suppl 1). Potassium [Moles/Vol] 4.1 mmol/L 3.7 - 5.1 mmol/L [facility] Protein [Mass/Vol] 6.0 g/dL Low 6.3 - 8.0 g/dL [facility] Sodium [Moles/Vol] 138 mmol/L 136 - 144 mmol/L [facility] Urea nitrogen [Mass/Vol] 28 mg/dL High 9 - 24 mg/dL [facility] Comprehensive metabolic 2000 panelon 03-01-2024 Albumin [Mass/Vol] 3.9 g/dL Normal 3.9-4.9 [facility] Comment on above: Order Comment: Speci men Type: BLOOD SPECIMENOrdering Facility: [facility] Address: [address] [place] [address] Performed By: #### 2 4323-8, ####[facility] CATHY MILLWNCLIA [id number] [place] [address] [place] ALP [Catalytic activity/Vol] 245 U/L High 38-113 [facility] Comment on above: Order Comment: Speci men Type: BLOOD SPECIMENOrdering Facility: [facility] Address: [address] [place] [address] Performed By: #### 2 4323-8, ####[facility] HOSPITALWNCLIA [id number] [place] [address] [place] ALT [Catalytic activity/Vol] 22 U/L Normal 10-54 [facility] Comment on above: Order Comment: Speci men Type: BLOOD SPECIMENOrdering Facility: [facility] Address: [address] [place] [address] Performed By: #### 2 4323-8, ####[facility] HOSPITALNCLIA [id number] [place] [address] [place] Anion gap [Moles/Vol] 11 mmol/L Normal 8-15 [facility] Comment on above: Order Comment: Speci men Type: BLOOD SPECIMENOrdering Facility: [facility] Address: [address] [place] [address] Performed By: #### 2 4323-8, ####[facility] HOSPITALWNCLIA [id number] [place] [address] [place] AST [Catalytic activity/Vol] 36 U/L Normal 14-40 [facility] Comment on above: Order Comment: Speci men Type: BLOOD SPECIMENOrdering Facility: [facility] Address: [address] [place] [address] Performed By: #### 2 4323-8, ####[facility] CATHY HERNANDEZNCCAMILLE [id number] [place] [address] [place] Bilirubin [Mass/Vol] 0.3 mg/dL Normal 0.2-1.3 [facility] Comment on above: Order Comment: Speci men Type: BLOOD SPECIMENOrdering Facility: [facility] Address: [address] [place] [address] Performed By: #### 2 4323-8, ####[facility] VAQUECHEENCCAMILLE [id number] [place] [address] [place] Calcium [Mass/Vol] 8.9 mg/dL Normal 8.5-10.2 [facility] Comment on above: Order Comment: Speci men Type: BLOOD SPECIMENOrdering Facility: [facility] Address: [address] [place] [address] Performed By: #### 2 4323-8, ####[facility] HOSPITALITALOA [id number] [place] [address] [place] Chloride [Moles/Vol] 111 mmol/L High 98-107 [facility] Comment on above: Order Comment: Speci men Type: BLOOD SPECIMENOrdering Facility: [facility] Address: [address] [place] [address] Performed By: #### 2 4323-8, ####[facility] HOSPITALNCLIA [id number] [place] [address] [place] CO2 [Moles/Vol] 16 mmol/L Low 22-30 [facility] Comment on above: Order Comment: Speci men Type: BLOOD SPECIMENOrdering Facility: [facility] Address: [address] [place], [place] [address] Performed By: #### 2 4323-8, ####[facility] VAQUECHEENCLIA [id number] [place] [address] [place] Creatinine [Mass/Vol] 1.81 mg/dL High 0.73-1.22 [facility] Comment on above: Order Comment: Speci men Type: BLOOD SPECIMENOrdering Facility: [facility] Address: [address] [place] [address] Performed By: #### 2 4323-8, ####[facility] HOSPITALNCLIA [id number] [place] [address] [place] Creatinine and Glomerular filtration rate.predicted panel (S/P/Bld) 39 mL/min/1.73m??? Low >=60 [facility] Comment on above: Order Comment: Lay barkley Type: BLOOD SPECIMENOrdering Facility: [facility] Address: [address] [place] [address] Result Comment: Emely mated Glomerular Filtration Rate (eGFR) is calculated using the 2020 CKD-EPI creatinine equation. This equation utilizes serum creatinine, sex, and age as parameters. The creatinine assay has traceable calibration to isotope dilution-mass spectrometry. Refer to KDIGO guidelines for clinical interpretation. In patients with unstable renal function, e.g. those with acute kidney injury, the eGFR may not accurately reflect actual GFR. Performed By: #### 2 4323-8, ####[facility] MEDICAL CENTERLIA [id number] [place] [address] [place] Glucose [Mass/Vol] 209 mg/dL High 74-99 [facility] Comment on above: Order Comment: Calii rubia Type: BLOOD SPECIMENOrdering Facility: [facility] Address: [address] [place] [address] Result Comment: The [place] Diabetes Association (ADA) provides guidance for cutoff values for fasting glucose and random glucose. The ADA defines fasting as no caloric intake for at least 8 hours. Fasting plasma glucose results between 100 to 125 mg/dL indicate increased risk for diabetes (prediabetes).Fasting plasma glucose results greater than or equal to 126 mg/dL meet the criteria for diagnosis of diabetes. In the absence of unequivocal hyperglycemia, results should be confirmed by repeat testing. In a patient with classic symptoms of hyperglycemia or hyperglycemic crisis, random plasma glucose results greater than or equal to 200 mg/dL meet the criteria for diagnosis of diabetes.Reference: Standards of Medical Care in Diabetes 2016, [place] [employer]. Diabetes Care. 2016.39(Suppl 1). Performed By: #### 2 4323-8, ####[facility] MILLTOWCRISTOFERLIA [id number] [place] [address] [place] [place] Potassium [Moles/Vol] 4.1 mmol/L Normal 3.7-5.1 [facility] Comment on above: Order Comment: Speci men Type: BLOOD SPECIMENOrdering Facility: [facility] Address: [address] [place] [address] Performed By: #### 2 4323-8, ####[facility] HOSPITALWAKLIA [id number] [place] [address] [place] Protein [Mass/Vol] 6.0 g/dL Low 6.3-8.0 [facility] Comment on above: Order Comment: Speci men Type: BLOOD SPECIMENOrdering Facility: [facility] Address: [address] [place] [address] Performed By: #### 2 4328, ####[facility] HOSPITALWNCLIA [id number] [place] [address] [place] Sodium [Moles/Vol] 138 mmol/L Normal 136-144 [facility] Comment on above: Order Comment: Speci men Type: BLOOD SPECIMENOrdering Facility: [facility] Address: [address] [place] [address] Performed By: #### 2 4323-8, ####[facility] [id number] [place] [address] [place] Urea nitrogen [Mass/Vol] 28 mg/dL High 9-24 [facility] Comment on above: Order Comment: Speci men Type: BLOOD SPECIMENOrdering Facility: [facility] Address: [address] [place] [address] Performed By: #### 2 4323-8, 84823-2 ####[facility] [id number] [place] [address] [place] MAGNESIUM BLDon 03-01-2024 Magnesium [Mass/Vol] 1.4 mg/dL Low 1.7 - 2.3 mg/dL [facility] Magnesium SerPl-mCncon 03-01 Magnesium [Mass/Vol] 1.4 mg/dL Low 1.7-2.3 [facility] Comment on above: Order Comment: Speci men Type: BLOOD SPECIMENOrdering Facility: [facility] Address: [address] [place] [address] Performed By: #### 2 4323-8, 23092-5 ####[facility] [id number] [place] [address] [place] No Panel Informationon 03-01 Interpretation and review of laboratory results Abnormal [facility] CNPNon 02-24-2024 CNPN Normal [facility] CNOVon 02-20-2024 CNOV Normal [facility] CBC W Auto Differential pane l (Bld)on 02-17-2024 Basophils (Bld) [#/Vol] 0.07 10*3/uL [facility] Basophils/100 WBC (Bld) 0.5 % [facility] Differential cell count method Nom (Bld) Auto [facility] Eosinophils (Bld) [#/Vol] 0.06 10*3/uL [facility] Eosinophils/100 WBC (Bld) 0.4 % [facility] Erythrocyte distribution width (RBC) [Ratio] 16.6 % High 11.5 - 15.0 % [facility] Hematocrit (Bld) [Volume fraction] 29.6 % Low 39.0 - 51.0 % [facility] Hemoglobin (Bld) [Mass/Vol] 9.5 g/dL Low 13.0 - 17.0 g/dL [facility] Immature granulocytes (Bld) [#/Vol] 0.13 10*3/uL High NINF [facility] Immature granulocytes/100 WBC (Bld) 0.9 % [facility] Interpretation and review of laboratory results Abnormal [facility] Lymphocytes (Bld) [#/Vol] 1.84 10*3/uL [facility] Lymphocytes/100 WBC (Bld) 13.0 % [facility] MCH (RBC) [Entitic mass] 29.7 pg 26.0 - 34.0 pg [facility] MCHC (RBC) [Mass/Vol] 32.1 g/dL 30.5 - 36.0 g/dL [facility] MCV (RBC) [Entitic vol] 92.5 fL 80.0 - 100.0 fL [facility] Monocytes (Bld) [#/Vol] 1.20 10*3/uL High [facility] Monocytes/100 WBC (Bld) 8.5 % [facility] Neutrophils (Bld) [#/Vol] 10.81 10*3/uL High [facility] Neutrophils/100 WBC (Bld) 76.7 % [facility] Nucleated RBC (Bld) [#/Vol] NINF [facility] Nucleated RBC/100 WBC (Bld) [Ratio] 0.0 % /100 WBC [facility] Platelet mean volume (Bld) [Entitic vol] 10.3 fL 9.0 - 12.7 fL [facility] Platelets (Bld) [#/Vol] 190 10*3/uL [facility] RBC (Bld) [#/Vol] 3.20 10*6/uL Low 4.20 - 6.00 m/uL [facility] WBC (Bld) [#/Vol] 14.11 10*3/uL High [facility] Basophils (Bld) [#/Vol] 0.07 10*3/uL Normal <0.11 [facility] Comment on above: Order Comment: Speci men Type: BLOOD SPECIMENOrdering Facility: [facility] Address: [address] [place] [address] Performed By: #### 5 7021-8 ####[facility] MILLWNCLIA [id number] [place] [address] [place] Basophils/100 WBC (Bld) 0.5 % Normal [facility] Comment on above: Order Comment: Speci men Type: BLOOD SPECIMENOrdering Facility: [facility] Address: [address] [place] [address] Performed By: #### 5 7021-8 ####[facility] MEDICAL CENTERLIA [id number] [place] [address] [place] Differential cell count method Nom (Bld) Auto Normal [facility] Comment on above: Order Comment: Speci men Type: BLOOD SPECIMENOrdering Facility: [facility] Address: [address] [place] [address] Performed By: #### 5 7021-8 ####[facility] MEDICAL CENTERLIA [id number] [place] [address] [place] Eosinophils (Bld) [#/Vol] 0.06 10*3/uL Normal <0.46 [facility] Comment on above: Order Comment: Speci men Type: BLOOD SPECIMENOrdering Facility: [facility] Address: [address] [place] [address] Performed By: #### 5 7021-8 ####[facility] MEDICAL CENTERLIA [id number] [place] [address] [place] Eosinophils/100 WBC (Bld) 0.4 % Normal [facility] Comment on above: Order Comment: Speci men Type: BLOOD SPECIMENOrdering Facility: [facility] Address: [address] [place] [address] Performed By: #### 5 7021-8 ####[facility] HOSPITALNCLIA [id number] [place] [address] [place] Erythrocyte distribution width (RBC) [Ratio] 16.6 % High 11.5-15.0 [facility] Comment on above: Order Comment: Speci men Type: BLOOD SPECIMENOrdering Facility: [facility] Address: [address] [place] [address] Performed By: #### 5 7021-8 ####[facility]OSPITALNCMOAB [facility] [id number] [place] [address] [place] Hematocrit (Bld) [Volume fraction] 29.6 % Low 39.0-51.0 [facility] Comment on above: Order Comment: Speci men Type: BLOOD SPECIMENOrdering Facility: [facility] Address: [address] [place] [address] Performed By: #### 5 7021-8 ####[facility] [id number] [place] [address] [place] Hemoglobin (Bld) [Mass/Vol] 9.5 g/dL Low 13.0-17.0 [facility] Comment on above: Order Comment: Speci men Type: BLOOD SPECIMENOrdering Facility: [facility] Address: [address] [place] [address] Performed By: #### 5 7021-8 ####[facility] [id number] [place] [address] [place] Immature granulocytes (Bld) [#/Vol] 0.13 10*3/uL High <0.10 [facility] Comment on above: Order Comment: Speci men Type: BLOOD SPECIMENOrdering Facility: [facility] Address: [address] [place] [address] Performed By: #### 5 7021-8 ####[facility] HOSPITALNCLI [id number] [place] [address] [place] Immature granulocytes/100 WBC (Bld) 0.9 % Normal [facility] Comment on above: Order Comment: Speci men Type: BLOOD SPECIMENOrdering Facility: [facility] Address: [address] [place] [address] Performed By: #### 5 7021-8 ####[facility] DORYA [id number] [place] [address] [place] Lymphocytes (Bld) [#/Vol] 1.84 10*3/uL Normal 1.00-4.00 [facility] Comment on above: Order Comment: Speci men Type: BLOOD SPECIMENOrdering Facility: [facility] Address: [address] [place] [address] Performed By: #### 5 7021-8 ####[facility] FLORIDAA [id number] [place] [address] [place] Lymphocytes/100 WBC (Bld) 13.0 % Normal [facility] Comment on above: Order Comment: Speci men Type: BLOOD SPECIMENOrdering Facility: [facility] Address: [address] [place] [address] Performed By: #### 5 7021-8 ####[facility] MEDICAL CENTERROBERTA [id number] [place] [address] [place] MCH (RBC) [Entitic mass] 29.7 pg Normal 26.0-34.0 [facility] Comment on above: Order Comment: Speci men Type: BLOOD SPECIMENOrdering Facility: [facility] Address: [address] [place] [address] Performed By: #### 5 7021-8 ####[facility] HOSPITALNCLIA [id number] [place] [address] [place] MCHC (RBC) [Mass/Vol] 32.1 g/dL Normal 30.5-36.0 [facility] Comment on above: Order Comment: Speci men Type: BLOOD SPECIMENOrdering Facility: [facility] Address: [address] [place] [address] Performed By: #### 5 7021-8 ####[facility] VAWNCLIA [id number] [place] [address] [place] MCV (RBC) [Entitic vol] 92.5 fL Normal 80.0-100.0 [facility] Comment on above: Order Comment: Speci men Type: BLOOD SPECIMENOrdering Facility: [facility] Address: [address] [place] [address] Performed By: #### 5 7021-8 ####[facility] FLORIDAA [id number] [place] [address] [place] Monocytes (Bld) [#/Vol] 1.20 10*3/uL High <0.87 [facility] Comment on above: Order Comment: Speci men Type: BLOOD SPECIMENOrdering Facility: [facility] Address: [address] [place] [address] Performed By: #### 5 7021-8 ####[facility] FL[facility]IDAA [id number] [place] [address] [place] Monocytes/100 WBC (Bld) 8.5 % Normal [facility] Comment on above: Order Comment: Speci men Type: BLOOD SPECIMENOrdering Facility: [facility] Address: [address] [place] [address] Performed By: #### 5 7021-8 ####[facility] [id number] [place] [address] [place] Neutrophils (Bld) [#/Vol] 10.81 10*3/uL High 1.45-7.50 [facility] Comment on above: Order Comment: Speci men Type: BLOOD SPECIMENOrdering Facility: [facility] Address: [address] [place] [address] Performed By: #### 5 7021-8 ####[facility] MEDICAL CENTERLIA [id number] [place] [address] [place] Neutrophils/100 WBC (Bld) 76.7 % Normal [facility] Comment on above: Order Comment: Speci men Type: BLOOD SPECIMENOrdering Facility: [facility] Address: [address] [place] [address] Performed By: #### 5 7021-8 ####[facility] [id number] [place] [address] [place] Nucleated RBC (Bld) [#/Vol] 10*3/uL Normal <0.01 [facility] Comment on above: Order Comment: Speci men Type: BLOOD SPECIMENOrdering Facility: [facility] Address: [address] [place] [address] Performed By: #### 5 7021-8 ####[facility] [id number] [place] [address] [place] Nucleated RBC/100 WBC (Bld) [Ratio] 0.0 /100 WBC Normal [facility] Comment on above: Order Comment: Speci men Type: BLOOD SPECIMENOrdering Facility: [facility] Address: [address] [place] [address] Performed By: #### 5 7021-8 ####[facility] [id number] [place] [address] [place] Platelet mean volume (Bld) [Entitic vol] 10.3 fL Normal 9.0-12.7 [facility] Comment on above: Order Comment: Speci men Type: BLOOD SPECIMENOrdering Facility: [facility] Address: [address] [place] [address] Performed By: #### 5 7021-8 ####[facility] [id number] [place] [address] [place] Platelets (Bld) [#/Vol] 190 10*3/uL Normal 150-400 [facility] Comment on above: Order Comment: Speci men Type: BLOOD SPECIMENOrdering Facility: [facility] Address: [address] [place] [address] Performed By: #### 5 7021-8 ####[facility] HOSPITALNCLIA [id number] [place] [address] [place] RBC (Bld) [#/Vol] 3.20 10*6/uL Low 4.20-6.00 [facility] Comment on above: Order Comment: Speci men Type: BLOOD SPECIMENOrdering Facility: [facility] Address: [address] [place] [address] Performed By: #### 5 7021-8 ####[facility] HOSPITALNCA [id number] [place] [address] [place] WBC (Bld) [#/Vol] 14.11 10*3/uL High 3.70-11.00 [facility] Comment on above: Order Comment: Speci men Type: BLOOD SPECIMENOrdering Facility: [facility] Address: [address] [place] [address] Performed By: #### 5 7021-8 ####[facility] HOSPITALNCLIA [id number] [place] [address] [place] Cancer Ag19-9 SerPl-aCncon 0 02-17-2024 Cancer Ag 19-9 Qn 79.0 [arb'U]/mL High <36.0 [facility] Comment on above: Order Comment: Speci men Type: BLOOD SPECIMENOrdering Facility: [facility] Address: [address] [place] [address] Result Comment: Rust er antigen 19-9 test is used as an aid in monitoring response to treatment or recurrence in patients with established pancreatic, hepatobiliary, or gastrointestinal malignancies. Clinical correlation is required.The CA 19-9 Antigen test was performed using the Nerved[employer] Unicel DXI paramagnetic particle chemiluminescent immunoassay method. Results obtained with different assay methods or kits cannot be used interchangeably. Performed By: #### 2 4108-3 ####[facility] LABCLIA [id number] [place] [address] [place] Comprehensive metabolic 2000 panelOrdered By: Felicia Macias on 02-17-2024 Albumin [Mass/Vol] 4.0 g/dL 3.9 - 4.9 g/dL [facility] ALP [Catalytic activity/Vol] 180 U/L High 38 - 113 U/L [facility] ALT [Catalytic activity/Vol] 16 U/L 10 - 54 U/L [facility] Anion gap [Moles/Vol] 13 mmol/L 8 - 15 mmol/L [facility] AST [Catalytic activity/Vol] 29 U/L 14 - 40 U/L [facility] Bilirubin [Mass/Vol] 0.2 mg/dL 0.2 - 1.3 mg/dL [facility] Calcium [Mass/Vol] 9.0 mg/dL 8.5 - 10. 2 mg/dL [facility] Chloride [Moles/Vol] 107 mmol/L 98 - 107 mmol/L [facility] CO2 [Moles/Vol] 16 mmol/L Low 22 - 30 mmol/L [facility] Creatinine [Mass/Vol] 1.56 mg/dL High 0.73 - 1.22 mg/dL [facility] GFR/1.73 sq M.predicted among non-blacks MDRD (S/P/Bld) [Vol rate/Area] 47 mL/min/{1.73_m2} Low - PINF [facility] Comment on above: Estimated Glomerular Filtration Rate (eGFR) is calculated using the 2020 CKD-EPI creatinine equation. This equation utilizes serum creatinine, sex, and age as parameters. The creatinine assay has traceable calibration to isotope dilution-mass spectrometry. Refer to KDIGO guidelines for clinical interpretation. In patients with unstable renal function, e.g. those with acute kidney injury, the eGFR may not accurately reflect actual GFR. Glucose [Mass/Vol] 98 mg/dL 74 - 99 mg/dL [facility] Comment on above: The [place] Diab[employer] Association (ADA) provides guidance for cutoff values for fasting glucose and random glucose. The ADA defines fasting as no caloric intake for at least 8 hours. Fasting plasma glucose results between 100 to 125 mg/dL indicate increased risk for diabetes (prediabetes). Fasting plasma glucose results greater than or equal to 126 mg/dL meet the criteria for diagnosis of diabetes. In the absence of unequivocal hyperglycemia, results should be confirmed by repeat testing. In a patient with classic symptoms of hyperglycemia or hyperglycemic crisis, random plasma glucose results greater than or equal to 200 mg/dL meet the criteria for diagnosis of diabetes. Reference: Standards of Medical Care in Diabetes 2016, [place] [employer] Association. Diabetes Care. 2016.39(Suppl 1). Potassium [Moles/Vol] 3.9 mmol/L 3.7 - 5.1 mmol/L [facility] Protein [Mass/Vol] 6.2 g/dL Low 6.3 - 8.0 g/dL [facility] Sodium [Moles/Vol] 136 mmol/L 136 - 144 mmol/L [facility] Urea nitrogen [Mass/Vol] 31 mg/dL High 9 - 24 mg/dL [facility] Comprehensive metabolic 2000 panelon 02-17-2024 Albumin [Mass/Vol] 4.0 g/dL Normal 3.9-4.9 [facility] Comment on above: Order Comment: Lay barkley Type: BLOOD SPECIMENOrdering Facility: [facility] Address: [address] [place] [address] Performed By: #### 1 91239, ####[facility] MEDICAL CENTERLIA [id number] [place] [address] [place] ALP [Catalytic activity/Vol] 180 U/L High 38-113 [facility] Comment on above: Order Comment: Lay barkley Type: BLOOD SPECIMENOrdering Facility: [facility] Address: [address] [place] [address] Performed By: #### 1 239, ####[facility] HOSPITALWNCLIA [id number] [place] [address] [place] ALT [Catalytic activity/Vol] 16 U/L Normal 10-54 [facility] Comment on above: Order Comment: Lay barkley Type: BLOOD SPECIMENOrdering Facility: [facility] Address: [address] [place] [address] Performed By: #### 1 23, ####[facility] MEDICAL CENTERLIA [id number] [place] [address] [place] Anion gap [Moles/Vol] 13 mmol/L Normal 8-15 [facility] Comment on above: Order Comment: Speci men Type: BLOOD SPECIMENOrdering Facility: [facility] Address: [address] [place] [address] Performed By: #### 1 9123-9, 39480-7 ####[facility] MILLTOWNCLIA [id number] [place] [address] [place] AST [Catalytic activity/Vol] 29 U/L Normal 14-40 [facility] Comment on above: Order Comment: Speci men Type: BLOOD SPECIMENOrdering Facility: [facility] Address: [address] [place] [address] Performed By: #### 1 9123-9, 22496-3 ####[facility] MILLTOWNCLIA [id number] [place] [address] [place] Bilirubin [Mass/Vol] 0.2 mg/dL Normal 0.2-1.3 [facility] Comment on above: Order Comment: Speci men Type: BLOOD SPECIMENOrdering Facility: [facility] Address: [address] [place] [address] Performed By: #### 1 9123-9, 76124-5 ####[facility] MILLTOWNCLIA [id number] [place] [address] [place] Calcium [Mass/Vol] 9.0 mg/dL Normal 8.5-10.2 [facility] Comment on above: Order Comment: Speci men Type: BLOOD SPECIMENOrdering Facility: [facility] Address: [address] [place] [address] Performed By: #### 1 9123-9, 00185-7 ####[facility] MILLTOWNCLIA [id number] [place] [address] [place] Chloride [Moles/Vol] 107 mmol/L Normal 98-107 [facility] Comment on above: Order Comment: Speci men Type: BLOOD SPECIMENOrdering Facility: [facility] Address: [address] [place] [address] Performed By: #### 1 9123-9, 61428-7 ####[facility] [id number] [place] [address] [place] CO2 [Moles/Vol] 16 mmol/L Low 22-30 [facility] Comment on above: Order Comment: Speci men Type: BLOOD SPECIMENOrdering Facility: [facility] Address: [address] [place] [address] Performed By: #### 1 9123-9, 96769-4 ####[facility] [id number] [place] [address] [place] Creatinine [Mass/Vol] 1.56 mg/dL High 0.73-1.22 [facility] Comment on above: Order Comment: Speci men Type: BLOOD SPECIMENOrdering Facility: [facility] Address: [address] [place] [address] Performed By: #### 1 9123-9, 15782-8 ####[facility]IDAA [id number] [address] [facility] Creatinine and Glomerular filtration rate.predicted panel (S/P/Bld) 47 mL/min/1.73m??? Low >=60 [facility] Comment on above: Order Comment: Speci men Type: BLOOD SPECIMENOrdering Facility: [facility] Address: [address] [place] [address] Result Comment: Emely mated Glomerular Filtration Rate (eGFR) is calculated using the 2020 CKD-EPI creatinine equation. This equation utilizes serum creatinine, sex, and age as parameters. The creatinine assay has traceable calibration to isotope dilution-mass spectrometry. Refer to KDIGO guidelines for clinical interpretation. In patients with unstable renal function, e.g. those with acute kidney injury, the eGFR may not accurately reflect actual GFR. Performed By: #### 1 9123-9, 73584-9 ####[facility] VAVIRAJ [id number] [place] [address] [place] Glucose [Mass/Vol] 98 mg/dL Normal 74-99 [facility] Comment on above: Order Comment: Lay men Type: BLOOD SPECIMENOrdering Facility: [facility] Address: [address] [place] [address] Result Comment: The [place] Diabetes Association (ADA) provides guidance for cutoff values for fasting glucose and random glucose. The ADA defines fasting as no caloric intake for at least 8 hours. Fasting plasma glucose results between 100 to 125 mg/dL indicate increased risk for diabetes (prediabetes).Fasting plasma glucose results greater than or equal to 126 mg/dL meet the criteria for diagnosis of diabetes. In the absence of unequivocal hyperglycemia, results should be confirmed by repeat testing. In a patient with classic symptoms of hyperglycemia or hyperglycemic crisis, random plasma glucose results greater than or equal to 200 mg/dL meet the criteria for diagnosis of diabetes.Reference: Standards of Medical Care in Diabetes 2016, [place] [employer]. Diabetes Care. 2016.39(Suppl 1). Performed By: #### 1 9123-9, 52711-2 ####[facility] VAQUECHEENCROBERTA [id number] [place] [address] [place] Potassium [Moles/Vol] 3.9 mmol/L Normal 3.7-5.1 [facility] Comment on above: Order Comment: Lay barkley Type: BLOOD SPECIMENOrdering Facility: [facility] Address: [address] [place] [address] Performed By: #### 1 9123-9, 65064-6 ####[facility] HOSPITALITALOA [id number] [place] [address] [place] Protein [Mass/Vol] 6.2 g/dL Low 6.3-8.0 [facility] Comment on above: Order Comment: Calii men Type: BLOOD SPECIMENOrdering Facility: [facility] Address: [address] [place], [place] [id number] Performed By: #### 1 9123-9, 47989-0 ####[facility] [id number] [place] [address] [place] Sodium [Moles/Vol] 136 mmol/L Normal 136-144 [facility] Comment on above: Order Comment: Speci men Type: BLOOD SPECIMENOrdering Facility: [facility] Address: [address] [place] [address] Performed By: #### 1 9123-9, 63058-7 ####[facility] [id number] [place] [address] [place] Urea nitrogen [Mass/Vol] 31 mg/dL High 9-24 [facility] Comment on above: Order Comment: Speci men Type: BLOOD SPECIMENOrdering Facility: [facility] Address: [address] [place] [address] Performed By: #### 1 9123-9, 06709-6 ####[facility] [id number] [place] [address] [place] HbA1c (Bld)on 02-17-2024 Average glucose Estimated from glycated hemoglobin (Bld) [Mass/Vol] 126 mg/dL Normal [facility] Comment on above: Order Comment: Speci men Type: BLOOD SPECIMENOrdering Facility: [facility] [facility] Address: [address] [place] [address] Result Comment: eAG: (Estimated average glucose) is a calculated value from HgbA1c and is architectural representative of the average blood glucose level in the last 2-3 month period. Performed By: #### 5 5454-3 ####[facility] LABCLIA [id number] [place] [address] [place] HbA1c (Bld) [Mass fraction] 6.0 % High 4.3-5.6 [facility] Comment on above: Order Comment: Speci men Type: BLOOD SPECIMENOrdering Facility: [facility] Address: [address], [place] [address] Result Comment: Sammy ican Diabetes Association guidelines indicate that patients with HgbA1c in the range 5.7-6.4% are at increased risk for development of diabetes, and intervention by lifestyle modification may be beneficial. HgbA1c greater or equal to 6.5% is considered diagnostic of diabetes. Performed By: #### 5 5454-3 ####[facility] LABCLIA [id number] [facility] [id number] [place] [address] [place] Lipid 1996 panelon 4 Cholesterol [Mass/Vol] 153 mg/dL NINF - 200 mg/dL [facility] Comment on above: <200 mg/dL, Desirabl e 200-239 mg/dL, Borderline high >239 mg/dL, High Cholesterol in HDL [Mass/Vol] 48 mg/dL 39 - PINF mg/dL [facility] Comment on above: 40-59 mg/dL, Accepta ble >59 mg/dL, High: Negative risk factor for coronary heart disease <40 mg/dL, Low: Positive risk factor for coronary heart disease Cholesterol in LDL [Mass/Vol] 35 mg/dL NINF - 100 mg/dL [facility] Comment on above: <100 mg/dL, Optimal 100-129 mg/dL, Near optimal/above optimal 130-159 mg/dL, Borderline high 160-189 mg/dL, High >189 mg/dL, Very high Secondary prevention optimal LDL Cholesterol levels are recommended to be < 70 mg/dL Cholesterol in LDL/Cholesterol in HDL [Mass ratio] 0.73 {ratio} NINF - 2.54 [facility] Comment on above: Reference: 1. National Cholesterol Education Program ATP III Guideline At-A-Glance Quick Desk Reference: National Heart, Lung, and Blood [place]. National Institutes of Health. 2001: NIH Publication No. 01-3305. 2. An International Atherosclerosis Society position paper: global recommendations for the management of dyslipidemia: executive summary, Atherosclerosis. 2014: 232(2):410-413. Cholesterol in VLDL [Mass/Vol] 70 mg/dL High NINF - 30 mg/dL [facility] Cholesterol non HDL [Mass/Vol] 105 mg/dL NINF - 130 mg/dL [facility] Comment on above: <130 mg/dL, Optimal 130-159 mg/dL, Near optimal/above optimal 160-189 mg/dL, Borderline high 190-219 mg/dL, High >219 mg/dL, Very high Secondary prevention optimal non HDL Cholesterol levels are recommended to be <100 mg/dL Cholesterol.total/C holesterol in HDL [Mass ratio] 3.19 {ratio} NINF - 5.10 [facility] Fasting Time 4 hrs [facility] Comment on above: hrs Interpretation and review of laboratory results Abnormal [facility] Triglyceride [Mass/Vol] 349 mg/dL High NINF - 150 mg/dL [facility] Comment on above: <150 mg/dL, Normal 150-199 mg/dL, Borderline high 200-499 mg/dL, High >499 mg/dL, Very high [facility] Cholesterol [Mass/Vol] 153 mg/dL Normal <200 [facility] Comment on above: Order Comment: Lay barkley Type: BLOOD SPECIMENOrdering Facility: [facility] Address: [address] [address] Result Comment: <200 mg/dL, Desirable 200-239 mg/dL, Borderline high>239 mg/dL, High Performed By: #### 2 4331-1 ####[facility] LABCLIA [id number] [address] [id number] [address] Cholesterol in HDL [Mass/Vol] 48 mg/dL Normal >39 [facility] Comment on above: Order Comment: Lay barkley Type: BLOOD SPECIMENOrdering Facility: [facility] Address: [address], [place] [address] Result Comment: 40-5 9 mg/dL, Acceptable>59 mg/dL, High: Negative risk factor for coronary heart disease<40 mg/dL, Low: Positive risk factor for coronary heart disease Performed By: #### 2 4331-1 ####[facility] LABCLIA [id number] [address] [id number] [address] Cholesterol in LDL [Mass/Vol] 35 mg/dL Normal <100 [facility] Comment on above: Order Comment: Speci men Type: BLOOD SPECIMENOrdering Facility: [facility] Address: [address], [place] [address] Result Comment: <100 mg/dL, Optimal 100-129 mg/dL, Near optimal/above optimal 130-159 mg/dL, Borderline high 160-189 mg/dL, High>189 mg/dL, Very highSecondary prevention optimal LDL Cholesterol levels are recommended to be < 70 mg/dL Performed By: #### 2 4331-1 ####[facility] LABCLIA [id number] [address] [id number] [place] [address] Cholesterol in LDL/Cholesterol in HDL [Mass ratio] 0.73 {ratio} Normal <2.54 [facility] Comment on above: Order Comment: Speci men Type: BLOOD SPECIMENOrdering Facility: [facility] Address: [facility] [address], [place] [address] Result Comment: Refe rence:1. National Cholesterol Education Program ATP III Guideline At-A-Glance Quick Desk Reference: National Heart, Lung, and Blood [place]. National Institutes of Health. 2001: NIH Publication No. 01-3305.2. An International Atherosclerosis Society position paper: global recommendations for the management of dyslipidemia: executive summary, Atherosclerosis. 2014: 232(2):410-413. Performed By: #### 2 4331-1 ####[facility] LABCLIA [id number] [address] [id number] [address] Cholesterol in VLDL [Mass/Vol] 70 mg/dL High <30 [facility] Comment on above: Order Comment: Speci men Type: BLOOD SPECIMENOrdering Facility: [facility] Address: [address] [address] Performed By: #### 2 4331-1 ####[facility] LABCLIA [id number] [address] [id number] [place] [address] [facility] Cholesterol non HDL [Mass/Vol] 105 mg/dL Normal <130 [facility] Comment on above: Order Comment: Caili men Type: BLOOD SPECIMENOrdering Facility: [facility] Address: [facility] [address] [address] Result Comment: <130 mg/dL, Optimal 130-159 mg/dL, Near optimal/above optimal 160-189 mg/dL, Borderline high 190-219 mg/dL, High>219 mg/dL, Very highSecondary prevention optimal non HDL Cholesterol levels are recommended to be <100 mg/dL Performed By: #### 2 4331-1 ####[facility] LABCLIA [id number] [address] [id number] [address] Cholesterol.total/C holesterol in HDL [Mass ratio] 3.19 {ratio} Normal <5.10 [facility] Comment on above: Order Comment: Speci men Type: BLOOD SPECIMENOrdering Facility: [facility] Address: [address] [place] [address] Performed By: #### 2 4331-1 ####[facility] LABCLIA [id number] [address] [id number] [place] [address] [place] FASTING TIME 4 hrs Normal [facility] Comment on above: Order Comment: Speci men Type: BLOOD SPECIMENOrdering Facility: [facility] Address: [facility] [place] [address] Result Comment: hrs Performed By: #### 2 4331-1 ####[facility] LABCLIA [id number] [address] STATES OF [facility] [id number] [place] [address] [place] Triglyceride [Mass/Vol] 349 mg/dL High <150 [facility] Comment on above: Order Comment: Speci men Type: BLOOD SPECIMENOrdering Facility: [facility] Address: [facility], [place] [address] Result Comment: <150 mg/dL, Normal 150-199 mg/dL, Borderline high 200-499 mg/dL, High>499 mg/dL, Very high Performed By: #### 2 4331-1 ####[facility] LABCLIA [id number] [place] [address] [facility] [id number] [place] [address] [place] MAGNESIUM BLDon 02-17-2024 Magnesium [Mass/Vol] 1.3 mg/dL Low 1.7 - 2.3 mg/dL [facility] Magnesium SerPl-mCncon 02-16 Magnesium [Mass/Vol] 1.3 mg/dL Low 1.7-2.3 [facility] Comment on above: Order Comment: Speci men Type: BLOOD SPECIMENOrdering Facility: [facility] Address: [address] [place] [address] Performed By: #### 1 9123-9, 34375-3 ####[facility] MEDICAL CENTERLIA [id number] [place] [address] [place] No Panel InformationOrdered By: Felicia Macias on 02-17-2024 Interpretation and review of laboratory results Abnormal [facility] CT CHEST WO IVCONon 02-06-20 CT CHEST WO IVCON Normal [facility] MRI LIVER WO/W IVCONon 02-05 MRI LIVER WO/W IVCON Normal [facility] CNPNon 02-04-2024 CNPN Normal [facility] CBC W Auto Differential pane l (Bld)on 01-26-2024 Basophils (Bld) [#/Vol] 0.11 10*3/uL High [facility] Basophils/100 WBC (Bld) 0.6 % [facility] Differential cell count method Nom (Bld) Auto [facility] Eosinophils (Bld) [#/Vol] 0.17 10*3/uL [facility] Eosinophils/100 WBC (Bld) 0.9 % [facility] Erythrocyte distribution width (RBC) [Ratio] 16.7 % High 11.5 - 15.0 % [facility] Hematocrit (Bld) [Volume fraction] 31.9 % Low 39.0 - 51.0 % [facility] Hemoglobin (Bld) [Mass/Vol] 9.5 g/dL Low 13.0 - 17.0 g/dL [facility] Immature granulocytes (Bld) [#/Vol] 0.25 10*3/uL High [facility] Immature granulocytes/100 WBC (Bld) 1.3 % [facility] Interpretation and review of laboratory results Abnormal [facility] Lymphocytes (Bld) [#/Vol] 1.83 10*3/uL [facility] Lymphocytes/100 WBC (Bld) 9.8 % [facility] MCH (RBC) [Entitic mass] 28.9 pg 26.0 - 34.0 pg [facility] MCHC (RBC) [Mass/Vol] 29.8 g/dL Low 30.5 - 36.0 g/dL [facility] MCV (RBC) [Entitic vol] 97.0 fL 80.0 - 100.0 fL [facility] Monocytes (Bld) [#/Vol] 1.24 10*3/uL High [facility] Monocytes/100 WBC (Bld) 6.7 % [facility] Neutrophils (Bld) [#/Vol] 15.01 10*3/uL High [facility] Neutrophils/100 WBC (Bld) 80.7 % [facility] Nucleated RBC (Bld) [#/Vol] NINF [facility] Nucleated RBC/100 WBC (Bld) [Ratio] 0.0 % /100 WBC [facility] Platelet mean volume (Bld) [Entitic vol] 10.4 fL 9.0 - 12.7 fL [facility] Platelets (Bld) [#/Vol] 158 10*3/uL [facility] RBC (Bld) [#/Vol] 3.29 10*6/uL Low 4.20 - 6.00 m/uL [facility] WBC (Bld) [#/Vol] 18.61 10*3/uL High [facility] Basophils (Bld) [#/Vol] 0.11 10*3/uL High <0.11 [facility] Comment on above: Order Comment: Speci men Type: BLOOD SPECIMENOrdering Facility: [facility] Address: [address] [place] [address] Performed By: #### 5 7021-8 ####[facility] FLORIDAA [id number] [place] [address] [place] Basophils/100 WBC (Bld) 0.6 % Normal [facility] Comment on above: Order Comment: Speci men Type: BLOOD SPECIMENOrdering Facility: [facility] Address: [address] [place] [address] Performed By: #### 5 7021-8 ####[facility] CENTERLIA [id number] [place] [address] [place] Differential cell count method Nom (Bld) Auto Normal [facility] Comment on above: Order Comment: Speci men Type: BLOOD SPECIMENOrdering Facility: [facility] Address: [address] [place] [address] Performed By: #### 5 7021-8 ####[facility] CENTERLIA [id number] [place] [address] [place] Eosinophils (Bld) [#/Vol] 0.17 10*3/uL Normal <0.46 [facility] Comment on above: Order Comment: Speci men Type: BLOOD SPECIMENOrdering Facility: [facility] Address: [address] [place] [address] Performed By: #### 5 7021-8 ####[facility] [id number] [place] [address] [place] Eosinophils/100 WBC (Bld) 0.9 % Normal [facility] Comment on above: Order Comment: Speci men Type: BLOOD SPECIMENOrdering Facility: [facility] Address: [address] [place] [address] Performed By: #### 5 7021-8 ####[facility]ITALNCMO[facility] [id number] [place] [address] [place] Erythrocyte distribution width (RBC) [Ratio] 16.7 % High 11.5-15.0 [facility] Comment on above: Order Comment: Speci men Type: BLOOD SPECIMENOrdering Facility: [facility] Address: [address] [place] [address] Performed By: #### 5 7021-8 ####[facility] HOSPITALNCLI [id number] [place] [address] [place] Hematocrit (Bld) [Volume fraction] 31.9 % Low 39.0-51.0 [facility] Comment on above: Order Comment: Speci men Type: BLOOD SPECIMENOrdering Facility: [facility] Address: [address] [place] [address] Performed By: #### 5 7021-8 ####[facility] HOSPITALNCLIA [id number] [place] [address] [place] Hemoglobin (Bld) [Mass/Vol] 9.5 g/dL Low 13.0-17.0 [facility] Comment on above: Order Comment: Speci men Type: BLOOD SPECIMENOrdering Facility: [facility] Address: [address] [place] [address] Performed By: #### 5 7021-8 ####[facility] VAADRIAN [id number] [place] [address] [place] Immature granulocytes (Bld) [#/Vol] 0.25 10*3/uL High <0.10 [facility] Comment on above: Order Comment: Speci men Type: BLOOD SPECIMENOrdering Facility: [facility] Address: [address] [place] [address] Performed By: #### 5 7021-8 ####[facility] [id number] [place] [address] [place] Immature granulocytes/100 WBC (Bld) 1.3 % Normal [facility] Comment on above: Order Comment: Speci men Type: BLOOD SPECIMENOrdering Facility: [facility] Address: [address] [place] [address] Performed By: #### 5 7021-8 ####[facility] [id number] [place] [address] [place] Lymphocytes (Bld) [#/Vol] 1.83 10*3/uL Normal 1.00-4.00 [facility] Comment on above: Order Comment: Speci men Type: BLOOD SPECIMENOrdering Facility: [facility] Address: [address] [place] [address] Performed By: #### 5 7021-8 ####[facility] [id number] [place] [address] [place] Lymphocytes/100 WBC (Bld) 9.8 % Normal [facility] Comment on above: Order Comment: Speci men Type: BLOOD SPECIMENOrdering Facility: [facility] Address: [address] [place] [address] Performed By: #### 5 7021-8 ####[facility] CENTERLIA [id number] [place] [address] [place] MCH (RBC) [Entitic mass] 28.9 pg Normal 26.0-34.0 [facility] Comment on above: Order Comment: Speci men Type: BLOOD SPECIMENOrdering Facility: [facility] Address: [address] [place] [address] Performed By: #### 5 7021-8 ####[facility] CENTERLIA [id number] [place] [address] [place] MCHC (RBC) [Mass/Vol] 29.8 g/dL Low 30.5-36.0 [facility] Comment on above: Order Comment: Speci men Type: BLOOD SPECIMENOrdering Facility: [facility] Address: [address] [place] [address] Performed By: #### 5 7021-8 ####[facility] [id number] [place] [address] [place] MCV (RBC) [Entitic vol] 97.0 fL Normal 80.0-100.0 [facility] Comment on above: Order Comment: Speci men Type: BLOOD SPECIMENOrdering Facility: [facility] Address: [address] [place] [address] Performed By: #### 5 7021-8 ####[facility] CENTERLIA [id number] [place] [address] [place] Monocytes (Bld) [#/Vol] 1.24 10*3/uL High <0.87 [facility] Comment on above: Order Comment: Speci men Type: BLOOD SPECIMENOrdering Facility: [facility] Address: [address] [place] [address] Performed By: #### 5 7021-8 ####[facility] [id number] [place] [address] [place] Monocytes/100 WBC (Bld) 6.7 % Normal [facility] Comment on above: Order Comment: Speci men Type: BLOOD SPECIMENOrdering Facility: [facility] Address: [address] [place] [address] Performed By: #### 5 7021-8 ####[facility]AA [id number] [place] [address] [place] Neutrophils (Bld) [#/Vol] 15.01 10*3/uL High 1.45-7.50 [facility] Comment on above: Order Comment: Speci men Type: BLOOD SPECIMENOrdering Facility: [facility] Address: [address] [place] [address] Performed By: #### 5 7021-8 ####[facility] HOSPITALNCCAMILLE [id number] [place] [address] [place] Neutrophils/100 WBC (Bld) 80.7 % Normal [facility] Comment on above: Order Comment: Speci men Type: BLOOD SPECIMENOrdering Facility: [facility] Address: [address] [place] [address] Performed By: #### 5 7021-8 ####[facility] MEDICAL CENTERROBERTNorma [id number] [place] [address] [place] Nucleated RBC (Bld) [#/Vol] 10*3/uL Normal <0.01 [facility] Comment on above: Order Comment: Speci men Type: BLOOD SPECIMENOrdering Facility: [facility] Address: [address] [place] [address] Performed By: #### 5 7021-8 ####[facility] MEDICAL CENTERLIA [id number] [place] [address] [place] Nucleated RBC/100 WBC (Bld) [Ratio] 0.0 /100 WBC Normal [facility] Comment on above: Order Comment: Speci men Type: BLOOD SPECIMENOrdering Facility: [facility] Address: [address] [place] [address] Performed By: #### 5 7021-8 ####[facility] MARYNCCAMILLE [id number] [place] [address] [place] Platelet mean volume (Bld) [Entitic vol] 10.4 fL Normal 9.0-12.7 [facility] Comment on above: Order Comment: Speci men Type: BLOOD SPECIMENOrdering Facility: [facility] Address: [address] [place] [address] Performed By: #### 5 7021-8 ####[facility] CL[facility] HOSPITALNCCAMILLE [id number] [place] [address] [place] Platelets (Bld) [#/Vol] 158 10*3/uL Normal 150-400 [facility] Comment on above: Order Comment: Speci men Type: BLOOD SPECIMENOrdering Facility: [facility] Address: [address] [place] [address] Performed By: #### 5 7021-8 ####[facility] HOSPITALNCLIA [id number] [place] [address] [place] RBC (Bld) [#/Vol] 3.29 10*6/uL Low 4.20-6.00 [facility] Comment on above: Order Comment: Speci men Type: BLOOD SPECIMENOrdering Facility: [facility] Address: [address] [place], [place] [address] Performed By: #### 5 7021-8 ####[facility] HOSPITALNCLIA [id number] [place] [address] [place] WBC (Bld) [#/Vol] 18.61 10*3/uL High 3.70-11.00 [facility] Comment on above: Order Comment: Speci men Type: BLOOD SPECIMENOrdering Facility: [facility] Address: [address] [place], [place] [address] [address] Performed By: #### 5 7021-8 ####[facility] [id number] [place] [address] [place] CNOVSPon 01-26-2024 CNOVSP Normal [facility] Cancer Ag19-9 SerPl-aCncon 0 01-26-2024 Cancer Ag 19-9 Qn 78.0 [arb'U]/mL High <36.0 [facility] Comment on above: Order Comment: Speci men Type: BLOOD SPECIMENOrdering Facility: [facility] Address: [address] [place] [address] Result Comment: Rust er antigen 19-9 test is used as an aid in monitoring response to treatment or recurrence in patients with established pancreatic, hepatobiliary, or gastrointestinal malignancies. Clinical correlation is required.The CA 19-9 Antigen test was performed using the [facility] Cent[facility] DXI paramagnetic particle chemiluminescent immunoassay method. Results obtained with different assay methods or kits cannot be used interchangeably. Performed By: #### 2 4108-3 ####[facility] LABCLIA [id number] [place] [address] [place] Comprehensive metabolic 2000 panelOrdered By: Vaishali Araiza on 01-26-2024 Albumin [Mass/Vol] 4.0 g/dL 3.9 - 4.9 g/dL [facility] ALP [Catalytic activity/Vol] 216 U/L High 38 - 113 U/L [facility] ALT [Catalytic activity/Vol] 22 U/L 10 - 54 U/L [facility] Anion gap [Moles/Vol] 14 mmol/L 8 - 15 mmol/L [facility] AST [Catalytic activity/Vol] 32 U/L 14 - 40 U/L [facility] Bilirubin [Mass/Vol] 0.2 mg/dL 0.2 - 1.3 mg/dL [facility] Calcium [Mass/Vol] 8.8 mg/dL 8.5 - 10. 2 mg/dL [facility] Chloride [Moles/Vol] 111 mmol/L High 98 - 107 mmol/L [facility] CO2 [Moles/Vol] 14 mmol/L Low 22 - 30 mmol/L [facility] Creatinine [Mass/Vol] 1.40 mg/dL High 0.73 - 1.22 mg/dL [facility] GFR/1.73 sq M.predicted among non-blacks MDRD (S/P/Bld) [Vol rate/Area] 54 mL/min/{1.73_m2} Low - PINF [facility] Comment on above: Estimated Glomerular Filtration Rate (eGFR) is calculated using the 2020 CKD-EPI creatinine equation. This equation utilizes serum creatinine, sex, and age as parameters. The creatinine assay has traceable calibration to isotope dilution-mass spectrometry. Refer to KDIGO guidelines for clinical interpretation. In patients with unstable renal function, e.g. those with acute kidney injury, the eGFR may not accurately reflect actual GFR. Glucose [Mass/Vol] 121 mg/dL High 74 - 99 mg/dL [facility] Comment on above: The [place] Diabete s Association (ADA) provides guidance for cutoff values for fasting glucose and random glucose. The ADA defines fasting as no caloric intake for at least 8 hours. Fasting plasma glucose results between 100 to 125 mg/dL indicate increased risk for diabetes (prediabetes). Fasting plasma glucose results greater than or equal to 126 mg/dL meet the criteria for diagnosis of diabetes. In the absence of unequivocal hyperglycemia, results should be confirmed by repeat testing. In a patient with classic symptoms of hyperglycemia or hyperglycemic crisis, random plasma glucose results greater than or equal to 200 mg/dL meet the criteria for diagnosis of diabetes. Reference: Standards of Medical Care in Diabetes 2016, [place] Diabetes Association. Diabetes Care. 2016.39(Suppl 1). Interpretation and review of laboratory results Abnormal [facility] Potassium [Moles/Vol] 4.5 mmol/L 3.7 - 5.1 mmol/L [facility] Protein [Mass/Vol] 6.5 g/dL 6.3 - 8.0 g/dL [facility] Sodium [Moles/Vol] 139 mmol/L 136 - 144 mmol/L [facility] Urea nitrogen [Mass/Vol] 30 mg/dL High 9 - 24 mg/dL [facility] Comprehensive metabolic 2000 panelon 01-26-2024 Albumin [Mass/Vol] 4.0 g/dL Normal 3.9-4.9 [facility] Comment on above: Order Comment: Speci men Type: BLOOD SPECIMENOrdering Facility: [facility] Address: [address] [place] [address] Performed By: #### 2 4323-8, 27712-07, ####[facility] CATHY AGARWALWNCLIA [id number] [place] [address] [place] ALP [Catalytic activity/Vol] 216 U/L High 38-113 [facility] Comment on above: Order Comment: Speci men Type: BLOOD SPECIMENOrdering Facility: [facility] Address: [address] [place] [address] Performed By: #### 2 4323-8, 27712-07, ####[facility] CATHY ANYWNCLIA [id number] [place] [address] [place] ALT [Catalytic activity/Vol] 22 U/L Normal 10-54 [facility] Comment on above: Order Comment: Speci men Type: BLOOD SPECIMENOrdering Facility: [facility] Address: [address] [place] [address] Performed By: #### 2 4323-8, 27712-07, ####[facility] CATHY DE DIOSWNCLIA [id number] [place] [address] [place] Anion gap [Moles/Vol] 14 mmol/L Normal 8-15 [facility] Comment on above: Order Comment: Speci men Type: BLOOD SPECIMENOrdering Facility: [facility] Address: [address] [place] [address] Performed By: #### 2 4323-8, 2777-, 78042-7 ####[facility] VAWNCLIA [id number] [place] [address] [place] AST [Catalytic activity/Vol] 32 U/L Normal 14-40 [facility] Comment on above: Order Comment: Speci men Type: BLOOD SPECIMENOrdering Facility: [facility] Address: [address] [place] [address] Performed By: #### 2 4323-8, 2777-1, 28957-1 ####[facility] NORTHJOSH HERNANDEZITALONorma [id number] [place] [address] [place] Bilirubin [Mass/Vol] 0.2 mg/dL Normal 0.2-1.3 [facility] Comment on above: Order Comment: Speci men Type: BLOOD SPECIMENOrdering Facility: [facility] Address: [address] [place] [address] Performed By: #### 2 4323-8, 2777-1, 81709-8 ####[facility] VAVIRAJ [id number] [place] [address] [place] Calcium [Mass/Vol] 8.8 mg/dL Normal 8.5-10.2 [facility] Comment on above: Order Comment: Speci men Type: BLOOD SPECIMENOrdering Facility: [facility] Address: [address] [place] [address] Performed By: #### 2 4323-8, 2777, 51902-5 ####[facility] VAQUECHEEТАТЬЯНА [id number] [place] [address] [place] Chloride [Moles/Vol] 111 mmol/L High 98-107 [facility] Comment on above: Order Comment: Speci men Type: BLOOD SPECIMENOrdering Facility: [facility] Address: [address] [place] [address] Performed By: #### 2 4323-8, 2777-1, 53784-6 ####[facility]PITALITALOA [id number] [place] [address] [place] CO2 [Moles/Vol] 14 mmol/L Low 22-30 [facility] Comment on above: Order Comment: Speci men Type: BLOOD SPECIMENOrdering Facility: [facility] Address: [address] [place] [address] Performed By: #### 2 4323-8, 2777-, 78312-0 ####[facility] HOSPITALNCLIA [id number] [place] [address] [place] Creatinine [Mass/Vol] 1.40 mg/dL High 0.73-1.22 [facility] Comment on above: Order Comment: Lay barkley Type: BLOOD SPECIMENOrdering Facility: [facility] Address: [address] [place] [address] Performed By: #### 2 4323-8, 27712-07, ####[facility] HOSPITALNCLIA [id number] [place] [address] [place] Creatinine and Glomerular filtration rate.predicted panel (S/P/Bld) 54 mL/min/1.73m??? Low >=60 [facility] Comment on above: Order Comment: Lay barkley Type: BLOOD SPECIMENOrdering Facility: [facility] Address: [address] [place] [address] Result Comment: Emely mated Glomerular Filtration Rate (eGFR) is calculated using the 2020 CKD-EPI creatinine equation. This equation utilizes serum creatinine, sex, and age as parameters. The creatinine assay has traceable calibration to isotope dilution-mass spectrometry. Refer to KDIGO guidelines for clinical interpretation. In patients with unstable renal function, e.g. those with acute kidney injury, the eGFR may not accurately reflect actual GFR. Performed By: #### 2 4323-8, 27712-07, ####[facility] HOSPITALNCLIA [id number] [place] [address] [place] Glucose [Mass/Vol] 121 mg/dL High 74-99 [facility] Comment on above: Order Comment: Lay barkley Type: BLOOD SPECIMENOrdering Facility: [facility] Address: [address] [place] [address] Result Comment: The [place] Diabetes Association (ADA) provides guidance for cutoff values for fasting glucose and random glucose. The ADA defines fasting as no caloric intake for at least 8 hours. Fasting plasma glucose results between 100 to 125 mg/dL indicate increased risk for diabetes (prediabetes).Fasting plasma glucose results greater than or equal to 126 mg/dL meet the criteria for diagnosis of diabetes. In the absence of unequivocal hyperglycemia, results should be confirmed by repeat testing. In a patient with classic symptoms of hyperglycemia or hyperglycemic crisis, random plasma glucose results greater than or equal to 200 mg/dL meet the criteria for diagnosis of diabetes.Reference: Standards of Medical Care in Diabetes 2016, [place] Diabetes Association. Diabetes Care. 2016.39(Suppl 1). Performed By: #### 2 4323-8, 2777, ####[facility] HOSPITALCRISTOFERLIA [id number] [place] [address] [place] Potassium [Moles/Vol] 4.5 mmol/L Normal 3.7-5.1 [facility] Comment on above: Order Comment: Speci men Type: BLOOD SPECIMENOrdering Facility: [facility] Address: [address] [place] [address] Performed By: #### 2 4323-8, 27712-07, ####[facility] HOSPITALCRISTOFERLIA [id number] [place] [address] [place] Protein [Mass/Vol] 6.5 g/dL Normal 6.3-8.0 [facility] Comment on above: Order Comment: Calii men Type: BLOOD SPECIMENOrdering Facility: [facility] Address: [address] [place] [address] Performed By: #### 2 4323-8, 27712-07, ####[facility] HOSPITALCRISTOFERLIA [id number] [place] [address] [place] Sodium [Moles/Vol] 139 mmol/L Normal 136-144 [facility] Comment on above: Order Comment: Speci men Type: BLOOD SPECIMENOrdering Facility: [facility] Address: [address] [place] [address] Performed By: #### 2 4323-8, 27712-07, ####[facility] MILLWNCLIA [id number] [place] [address] [place] Urea nitrogen [Mass/Vol] 30 mg/dL High 9-24 [facility] Comment on above: Order Comment: Speci men Type: BLOOD SPECIMENOrdering Facility: [facility] Address: [address] [place], [place] [address] Performed By: #### 2 4323-8, 27712-07, ####[facility] MILLQUECHEENCLIA [id number] [place] [address] [place] MAGNESIUM BLDon 01-26-2024 Magnesium [Mass/Vol] 1.4 mg/dL Low 1.7 - 2.3 mg/dL [facility] Magnesium SerPl-mCncon 01-25 Magnesium [Mass/Vol] 1.4 mg/dL Low 1.7-2.3 [facility] Comment on above: Order Comment: Speci men Type: BLOOD SPECIMENOrdering Facility: [facility] Address: [address] [place] [address] Performed By: #### 2 4323-8, 2776-06, ####[facility] MEDICAL CENTERROBERTA [id number] [place] [address] [place] Magnesium [Mass/Vol]on 01-25 Interpretation and review of laboratory results Abnormal [facility] PHOSPHORUS INORGANICon 01-25 Phosphate [Mass/Vol] 1.9 mg/dL Low 2.7 - 4.8 mg/dL [facility] Phosphate SerPl-mCncon 01-25 Phosphate [Mass/Vol] 1.9 mg/dL Low 2.7-4.8 [facility] Comment on above: Order Comment: Speci men Type: BLOOD SPECIMENOrdering Facility: [facility] Address: [address] [place] [address] Performed By: #### 2 4323-8, 27712-07, 51968-3 ####[facility] CATHY MILLTOWNCLIA [id number] [place] [id number] [place] Phosphate [Mass/Vol]on 01-25 Interpretation and review of laboratory results Abnormal [facility] CNPNon 01-21-2024 CNPN Normal [facility] CNPNon 01-15-2024 CNPN Normal [facility] Ferritin SerPl-mCncon 2023 Ferritin [Mass/Vol] 473.0 ng/mL Normal 30.3-565.7 [facility] Comment on above: Order Comment: Speci men Type: BLOOD SPECIMENOrdering Facility: [facility] Address: [address] [place] [address] Performed By: #### 5 0190-8, 2275-4 ####[facility] LABCLIA [id number] [place] [address] [place] Iron and Iron binding capaci ty panelon 01-14-2024 Iron [Mass/Vol] 44 ug/dL Normal 41-186 [facility] Comment on above: Order Comment: Speci men Type: BLOOD SPECIMENOrdering Facility: [facility] Address: [address] [place] [address] Performed By: #### 5 0190-8, 2275-09 ####[facility] LABCLIA [id number] [place] [address] [place] Iron binding capacity [Mass/Vol] 275 ug/dL Normal 232-386 [facility] Comment on above: Order Comment: Speci men Type: BLOOD SPECIMENOrdering Facility: [facility] Address: [address] [place] [address] Performed By: #### 5 0190-8, 2275-09 ####[facility] LABCLIA [id number] [place] [id number] [place] Iron/TIBC [Molar ratio] 16.0 % Normal 15.0-57.0 [facility] Comment on above: Order Comment: Speci men Type: BLOOD SPECIMENOrdering Facility: [facility] Address: [address] [place] [address] Performed By: #### 5 0190-8, 2276-4 ####[facility] LABCLIA [id number] [place] [address] [place] CBC W Auto Differential pane l (Bld)on 01-13-2024 Basophils (Bld) [#/Vol] 0.06 10*3/uL [facility] Basophils/100 WBC (Bld) 0.7 % [facility] Differential cell count method Nom (Bld) Auto [facility] Eosinophils (Bld) [#/Vol] 0.52 10*3/uL High [facility] Eosinophils/100 WBC (Bld) 5.6 % [facility] Erythrocyte distribution width (RBC) [Ratio] 15.9 % High 11.5 - 15.0 % [facility] Hematocrit (Bld) [Volume fraction] 29.1 % Low 39.0 - 51.0 % [facility] Hemoglobin (Bld) [Mass/Vol] 8.8 g/dL Low 13.0 - 17.0 g/dL [facility] Immature granulocytes (Bld) [#/Vol] 0.04 10*3/uL [facility] Immature granulocytes/100 WBC (Bld) 0.4 % [facility] Interpretation and review of laboratory results Abnormal [facility] Lymphocytes (Bld) [#/Vol] 1.70 10*3/uL [facility] Lymphocytes/100 WBC (Bld) 18.4 % [facility] MCH (RBC) [Entitic mass] 28.9 pg 26.0 - 34.0 pg [facility] MCHC (RBC) [Mass/Vol] 30.2 g/dL Low 30.5 - 36.0 g/dL [facility] MCV (RBC) [Entitic vol] 95.4 fL 80.0 - 100.0 fL [facility] Monocytes (Bld) [#/Vol] 0.76 10*3/uL [facility] Monocytes/100 WBC (Bld) 8.2 % [facility] Neutrophils (Bld) [#/Vol] 6.14 10*3/uL [facility] Neutrophils/100 WBC (Bld) 66.7 % [facility] Nucleated RBC (Bld) [#/Vol] NINF [facility] Nucleated RBC/100 WBC (Bld) [Ratio] 0.0 % /100 WBC [facility] Platelet mean volume (Bld) [Entitic vol] 9.8 fL 9.0 - 12.7 fL [facility] Platelets (Bld) [#/Vol] 210 10*3/uL [facility] RBC (Bld) [#/Vol] 3.05 10*6/uL Low 4.20 - 6.00 m/uL [facility] WBC (Bld) [#/Vol] 9.22 10*3/uL [facility] Basophils (Bld) [#/Vol] 0.06 10*3/uL Normal <0.11 [facility] Comment on above: Order Comment: Speci men Type: BLOOD SPECIMENOrdering Facility: [facility] Address: [address] [place] [address] Performed By: #### 5 7021-8 ####[facility] [id number] [place] [address] [place] Basophils/100 WBC (Bld) 0.7 % Normal [facility] Comment on above: Order Comment: Speci men Type: BLOOD SPECIMENOrdering Facility: [facility] Address: [address] [place] [address] Performed By: #### 5 7021-8 ####[facility] [id number] [place] [address] [place] Differential cell count method Nom (Bld) Auto Normal [facility] Comment on above: Order Comment: Speci men Type: BLOOD SPECIMENOrdering Facility: [facility] Address: [address] [place] [address] Performed By: #### 5 7021-8 ####[facility] [id number] [place] [address] [place] Eosinophils (Bld) [#/Vol] 0.52 10*3/uL High <0.46 [facility] Comment on above: Order Comment: Speci men Type: BLOOD SPECIMENOrdering Facility: [facility] Address: [address] [place] [address] Performed By: #### 5 7021-8 ####[facility] HOSPITALNCLI [id number] [place] [address] [place] Eosinophils/100 WBC (Bld) 5.6 % Normal [facility] Comment on above: Order Comment: Speci men Type: BLOOD SPECIMENOrdering Facility: [facility] Address: [address] [place] [address] Performed By: #### 5 7021-8 ####[facility]PITALNCMO[facility] [id number] [place] [address] [place] Erythrocyte distribution width (RBC) [Ratio] 15.9 % High 11.5-15.0 [facility] Comment on above: Order Comment: Speci men Type: BLOOD SPECIMENOrdering Facility: [facility] Address: [address] [place] [address] Performed By: #### 5 7021-8 ####[facility] HOSPITALNCLI [id number] [place] [address] [place] Hematocrit (Bld) [Volume fraction] 29.1 % Low 39.0-51.0 [facility] Comment on above: Order Comment: Speci men Type: BLOOD SPECIMENOrdering Facility: [facility] Address: [address] [place] [address] Performed By: #### 5 7021-8 ####[facility] [id number] [place] [address] [place] Hemoglobin (Bld) [Mass/Vol] 8.8 g/dL Low 13.0-17.0 [facility] Comment on above: Order Comment: Speci men Type: BLOOD SPECIMENOrdering Facility: [facility] Address: [address] [place] [address] Performed By: #### 5 7021-8 ####[facility] MILLTOWNCLIA [id number] [place] [address] [place] Immature granulocytes (Bld) [#/Vol] 0.04 10*3/uL Normal <0.10 [facility] Comment on above: Order Comment: Speci men Type: BLOOD SPECIMENOrdering Facility: [facility] Address: [address] [place] [address] Performed By: #### 5 7021-8 ####[facility] MILLWNCLIA [id number] [place] [address] [place] Immature granulocytes/100 WBC (Bld) 0.4 % Normal [facility] Comment on above: Order Comment: Speci men Type: BLOOD SPECIMENOrdering Facility: [facility] Address: [address] [place] [address] Performed By: #### 5 7021-8 ####[facility] ANYWNCLIA [id number] [place] [address] [place] Lymphocytes (Bld) [#/Vol] 1.70 10*3/uL Normal 1.00-4.00 [facility] Comment on above: Order Comment: Speci men Type: BLOOD SPECIMENOrdering Facility: [facility] Address: [address] [place] [address] Performed By: #### 5 7021-8 ####[facility] MILLTOWNCLIA [id number] [place] [address] [place] Lymphocytes/100 WBC (Bld) 18.4 % Normal [facility] Comment on above: Order Comment: Speci men Type: BLOOD SPECIMENOrdering Facility: [facility] Address: [address] [place] [address] Performed By: #### 5 7021-8 ####[facility] MILLTOWNCLIA [id number] [place] [address] [place] MCH (RBC) [Entitic mass] 28.9 pg Normal 26.0-34.0 [facility] Comment on above: Order Comment: Speci men Type: BLOOD SPECIMENOrdering Facility: [facility] Address: [address] [place] [address] Performed By: #### 5 7021-8 ####[facility] [id number] [place] [address] [place] MCHC (RBC) [Mass/Vol] 30.2 g/dL Low 30.5-36.0 [facility] Comment on above: Order Comment: Speci men Type: BLOOD SPECIMENOrdering Facility: [facility] Address: [address] [place] [address] Performed By: #### 5 7021-8 ####[facility] [id number] [place] [address] [place] MCV (RBC) [Entitic vol] 95.4 fL Normal 80.0-100.0 [facility] Comment on above: Order Comment: Speci men Type: BLOOD SPECIMENOrdering Facility: [facility] Address: [address] [place] [address] Performed By: #### 5 7021-8 ####[facility] [id number] [place] [address] [place] Monocytes (Bld) [#/Vol] 0.76 10*3/uL Normal <0.87 [facility] Comment on above: Order Comment: Speci men Type: BLOOD SPECIMENOrdering Facility: [facility] Address: [address] [place] [address] Performed By: #### 5 7021-8 ####[facility] [id number] [place] [address] [place] Monocytes/100 WBC (Bld) 8.2 % Normal [facility] Comment on above: Order Comment: Speci men Type: BLOOD SPECIMENOrdering Facility: [facility] Address: [address] [place] [address] Performed By: #### 5 7021-8 ####[facility] [id number] [place] [address] [place] Neutrophils (Bld) [#/Vol] 6.14 10*3/uL Normal 1.45-7.50 [facility] Comment on above: Order Comment: Speci men Type: BLOOD SPECIMENOrdering Facility: [facility] Address: [address] [place] [address] Performed By: #### 5 7021-8 ####[facility] [id number] [place] [address] [place] Neutrophils/100 WBC (Bld) 66.7 % Normal [facility] Comment on above: Order Comment: Speci men Type: BLOOD SPECIMENOrdering Facility: [facility] Address: [address] [place] [address] Performed By: #### 5 7021-8 ####[facility] [id number] [place] [address] [place] Nucleated RBC (Bld) [#/Vol] 10*3/uL Normal <0.01 [facility] Comment on above: Order Comment: Speci men Type: BLOOD SPECIMENOrdering Facility: [facility] Address: [address] [place] [address] Performed By: #### 5 7021-8 ####[facility] [id number] [place] [address] [place] Nucleated RBC/100 WBC (Bld) [Ratio] 0.0 /100 WBC Normal [facility] Comment on above: Order Comment: Speci men Type: BLOOD SPECIMENOrdering Facility: [facility] Address: [address] [place], [place] [address] Performed By: #### 5 7021-8 ####[facility] MARYNCCAMILLE [id number] [place] [address] [place] Platelet mean volume (Bld) [Entitic vol] 9.8 fL Normal 9.0-12.7 [facility] Comment on above: Order Comment: Speci men Type: BLOOD SPECIMENOrdering Facility: [facility] Address: [address] [place] [address] Performed By: #### 5 7021-8 ####[facility] HOSPITALNCCAMILLE [id number] [place] [address] [place] Platelets (Bld) [#/Vol] 210 10*3/uL Normal 150-400 [facility] Comment on above: Order Comment: Speci men Type: BLOOD SPECIMENOrdering Facility: [facility] Address: [address] [place] [address] Performed By: #### 5 7021-8 ####[facility] HOSPITALNCLIA [id number] [place] [address] [place] RBC (Bld) [#/Vol] 3.05 10*6/uL Low 4.20-6.00 [facility] Comment on above: Order Comment: Speci men Type: BLOOD SPECIMENOrdering Facility: [facility] Address: [address] [place], [place] [address] Performed By: #### 5 7021-8 ####[facility] HOSPITALNCLIA [id number] [place] [address] [place] WBC (Bld) [#/Vol] 9.22 10*3/uL Normal 3.70-11.00 [facility] Comment on above: Order Comment: Speci men Type: BLOOD SPECIMENOrdering Facility: [facility] Address: [address] [place] [address] Performed By: #### 5 7021-8 ####[facility] CATHYNORTHEASTERN VERMONT REGIONAL HOSPITALWNCLIA [id number] [place] [address] [place] CNOVSPon 01-13-2024 CNOVSP Normal [facility] Cancer Ag19-9 SerPl-aCncon 0 01-13-2024 Cancer Ag 19-9 Qn 59.0 [arb'U]/mL High <36.0 Cl [facility] Comment on above: Order Comment: Speci men Type: BLOOD SPECIMENOrdering Facility: [facility] Address: [address] [place] [address] Result Comment: Rust er antigen 19-9 test is used as an aid in monitoring response to treatment or recurrence in patients with established pancreatic, hepatobiliary, or gastrointestinal malignancies. Clinical correlation is required.The CA 19-9 Antigen test was performed using the [employer]erved[employer] Unicel DXI paramagnetic particle chemiluminescent immunoassay method. Results obtained with different assay methods or kits cannot be used interchangeably. Performed By: #### 2 4108-3 ####[facility] LABCLIA [id number] [place] [address] [place] Comprehensive metabolic 2000 panelOrdered By: Vaishali Araiza on 01-13-2024 Albumin [Mass/Vol] 3.7 g/dL Low 3.9 - 4.9 g/dL [facility] ALP [Catalytic activity/Vol] 117 U/L High 38 - 113 U/L [facility] ALT [Catalytic activity/Vol] 14 U/L 10 - 54 U/L [facility] Anion gap [Moles/Vol] 12 mmol/L 8 - 15 mmol/L [facility] AST [Catalytic activity/Vol] 30 U/L 14 - 40 U/L [facility] Bilirubin [Mass/Vol] 0.5 mg/dL 0.2 - 1.3 mg/dL [facility] Calcium [Mass/Vol] 8.4 mg/dL Low 8.5 - 10. 2 mg/dL [facility] Chloride [Moles/Vol] 103 mmol/L 98 - 107 mmol/L [facility] CO2 [Moles/Vol] 23 mmol/L 22 - 30 mmol/L [facility] Creatinine [Mass/Vol] 1.65 mg/dL High 0.73 - 1.22 mg/dL [facility] GFR/1.73 sq M.predicted among non-blacks MDRD (S/P/Bld) [Vol rate/Area] 44 mL/min/{1.73_m2} Low - PINF [facility] Comment on above: Estimated Glomerular Filtration Rate (eGFR) is calculated using the 2020 CKD-EPI creatinine equation. This equation utilizes serum creatinine, sex, and age as parameters. The creatinine assay has traceable calibration to isotope dilution-mass spectrometry. Refer to KDIGO guidelines for clinical interpretation. In patients with unstable renal function, e.g. those with acute kidney injury, the eGFR may not accurately reflect actual GFR. Glucose [Mass/Vol] 143 mg/dL High 74 - 99 mg/dL [facility] Comment on above: The [place] Di[employer] s Association (ADA) provides guidance for cutoff values for fasting glucose and random glucose. The ADA defines fasting as no caloric intake for at least 8 hours. Fasting plasma glucose results between 100 to 125 mg/dL indicate increased risk for diabetes (prediabetes). Fasting plasma glucose results greater than or equal to 126 mg/dL meet the criteria for diagnosis of diabetes. In the absence of unequivocal hyperglycemia, results should be confirmed by repeat testing. In a patient with classic symptoms of hyperglycemia or hyperglycemic crisis, random plasma glucose results greater than or equal to 200 mg/dL meet the criteria for diagnosis of diabetes. Reference: Standards of Medical Care in Diabetes 2016, [place] [employer] Association. Diabetes Care. 2016.39(Suppl 1). Potassium [Moles/Vol] 3.9 mmol/L 3.7 - 5.1 mmol/L [facility] Protein [Mass/Vol] 6.0 g/dL Low 6.3 - 8.0 g/dL [facility] Sodium [Moles/Vol] 138 mmol/L 136 - 144 mmol/L [facility] Urea nitrogen [Mass/Vol] 28 mg/dL High 9 - 24 mg/dL [facility] Comprehensive metabolic 2000 panelon 01-13-2024 Albumin [Mass/Vol] 3.7 g/dL Low 3.9-4.9 [facility] Comment on above: Order Comment: Speci men Type: BLOOD SPECIMENOrdering Facility: [facility] Address: [facility] [place] [address] Performed By: #### 2 4083-8, 27359-4, 2776-06 ####[facility] MILLWNCLIA [id number] [place] [address] [place] ALP [Catalytic activity/Vol] 117 U/L High 38-113 [facility] Comment on above: Order Comment: Speci men Type: BLOOD SPECIMENOrdering Facility: [facility] Address: [address] [place] [address] Performed By: #### 2 4323-8, , 2776-06 ####[facility] VAWNCLIA [id number] [place] [address] [place] ALT [Catalytic activity/Vol] 14 U/L Normal 10-54 [facility] Comment on above: Order Comment: Speci men Type: BLOOD SPECIMENOrdering Facility: [facility] Address: [address] [place] [address] Performed By: #### 2 4323-8, , 2776-06 ####[facility] HOSPITALNCLIA [id number] [place] [address] [place] Anion gap [Moles/Vol] 12 mmol/L Normal 8-15 [facility] Comment on above: Order Comment: Speci men Type: BLOOD SPECIMENOrdering Facility: [facility] Address: [address] [place] [address] Performed By: #### 2 4323-8, , 2776-06 ####[facility] HOSPITALNCLIA [id number] [place] [address] [place] AST [Catalytic activity/Vol] 30 U/L Normal 14-40 [facility] Comment on above: Order Comment: Speci men Type: BLOOD SPECIMENOrdering Facility: [facility] Address: [address] [place] [address] Performed By: #### 2 4323-8, , 2776- ####[facility] H[facility]PITALWNCLIA [id number] [place] [address] [place] Bilirubin [Mass/Vol] 0.5 mg/dL Normal 0.2-1.3 [facility] Comment on above: Order Comment: Speci men Type: BLOOD SPECIMENOrdering Facility: [facility] Address: [address] [place] [address] Performed By: #### 2 4323-8, 85489-8, 2776-06 ####[facility] MILLTOWNCLIA [id number] [place] [address] [place] Calcium [Mass/Vol] 8.4 mg/dL Low 8.5-10.2 [facility] Comment on above: Order Comment: Speci men Type: BLOOD SPECIMENOrdering Facility: [facility] Address: [address] [place] [address] Performed By: #### 2 4323-8, , 2776-06 ####[facility] MILLTOWNCLIA [id number] [place] [address] [place] Chloride [Moles/Vol] 103 mmol/L Normal 98-107 [facility] Comment on above: Order Comment: Speci men Type: BLOOD SPECIMENOrdering Facility: [facility] Address: [address] [place] [address] Performed By: #### 2 4323-8, , 2776-06 ####[facility] MILLTOWNCLIA [id number] [place] [address] [place] CO2 [Moles/Vol] 23 mmol/L Normal 22-30 [facility] Comment on above: Order Comment: Speci men Type: BLOOD SPECIMENOrdering Facility: [facility] Address: [address] [place] [address] Performed By: #### 2 4323-8, 60372-6, 2776- ####[facility] MILLTOWNCLIA [id number] [place] [address] [place] Creatinine [Mass/Vol] 1.65 mg/dL High 0.73-1.22 [facility] Comment on above: Order Comment: Lay barkley Type: BLOOD SPECIMENOrdering Facility: [facility] Address: [address] [place] [address] Performed By: #### 2 4323-8, 16749-3, 2776-1 ####[facility] [id number] [place] [address] [place] Creatinine and Glomerular filtration rate.predicted panel (S/P/Bld) 44 mL/min/1.73m??? Low >=60 [facility] Comment on above: Order Comment: Lay barkley Type: BLOOD SPECIMENOrdering Facility: [facility] Address: [address] [place] [address] Result Comment: Emely mated Glomerular Filtration Rate (eGFR) is calculated using the 2020 CKD-EPI creatinine equation. This equation utilizes serum creatinine, sex, and age as parameters. The creatinine assay has traceable calibration to isotope dilution-mass spectrometry. Refer to KDIGO guidelines for clinical interpretation. In patients with unstable renal function, e.g. those with acute kidney injury, the eGFR may not accurately reflect actual GFR. Performed By: #### 2 4323-8, 29508-5, 1 ####[facility] HOSPITALNCLIA [id number] [place] [address] [place] Glucose [Mass/Vol] 143 mg/dL High 74-99 [facility] Comment on above: Order Comment: Lay barkley Type: BLOOD SPECIMENOrdering Facility: [facility] Address: [address] [place] [address] Result Comment: The [place] Diabetes Association (ADA) provides guidance for cutoff values for fasting glucose and random glucose. The ADA defines fasting as no caloric intake for at least 8 hours. Fasting plasma glucose results between 100 to 125 mg/dL indicate increased risk for diabetes (prediabetes).Fasting plasma glucose results greater than or equal to 126 mg/dL meet the criteria for diagnosis of diabetes. In the absence of unequivocal hyperglycemia, results should be confirmed by repeat testing. In a patient with classic symptoms of hyperglycemia or hyperglycemic crisis, random plasma glucose results greater than or equal to 200 mg/dL meet the criteria for diagnosis of diabetes.Reference: Standards of Medical Care in Diabetes 2016, [place] [employer]. Diabetes Care. 2016.39(Suppl 1). Performed By: #### 2 4323-8, 09908-0, 2776-06 ####[facility] VAWCRISTOFERLIA [id number] [place] [address] [place] Potassium [Moles/Vol] 3.9 mmol/L Normal 3.7-5.1 [facility] Comment on above: Order Comment: Lay barkley Type: BLOOD SPECIMENOrdering Facility: [facility] Address: [address] [place] [address] Performed By: #### 2 4323-8, , 2776-06 ####[facility] HOSPITALITALOA [id number] [place] [address] [place] Protein [Mass/Vol] 6.0 g/dL Low 6.3-8.0 [facility] Comment on above: Order Comment: Lay barkley Type: BLOOD SPECIMENOrdering Facility: [facility] Address: [address] [place] [address] Performed By: #### 2 4323-8, , 2776-06 ####[facility] HOSPITALCRISTOFERLIA [id number] [place] [address] [place] Sodium [Moles/Vol] 138 mmol/L Normal 136-144 [facility] Comment on above: Order Comment: Lay barkley Type: BLOOD SPECIMENOrdering Facility: [facility] Address: [address] [place] [address] Performed By: #### 2 4323-8, 94536-6, 2776-06 ####[facility] HOSPITALCRISTOFERLIA [id number] [place] [address] [place] Urea nitrogen [Mass/Vol] 28 mg/dL High 9-24 [facility] Comment on above: Order Comment: Speci men Type: BLOOD SPECIMENOrdering Facility: [facility] Address: [address] [place] [address] Performed By: #### 2 4323-8, 84934-1, 2777-1 ####[facility] CATHY MILLTOWNCLIA [id number] [place] [address] [place] MAGNESIUM BLDon 01-13-2024 Magnesium [Mass/Vol] 1.0 mg/dL Low 1.7 - 2.3 mg/dL [facility] Magnesium SerPl-mCncon 01-12 Magnesium [Mass/Vol] 1.0 mg/dL Low 1.7-2.3 [facility] Comment on above: Order Comment: Speci men Type: BLOOD SPECIMENOrdering Facility: [facility] Address: [address] [place] [address] Performed By: #### 2 4323-8, 70616-4, 2771 ####[facility] CATHY MILLTOWITALOA [id number] [place] [address] [place] No Panel InformationOrdered By: Vaishali Araiza on 01-13-2024 Interpretation and review of laboratory results Abnormal [facility] PHOSPHORUS INORGANICon 01-12 Phosphate [Mass/Vol] 2.8 mg/dL 2.7 - 4.8 mg/dL [facility] Phosphate SerPl-mCncon 01-12 Phosphate [Mass/Vol] 2.8 mg/dL Normal 2.7-4.8 [facility] Comment on above: Order Comment: Speci men Type: BLOOD SPECIMENOrdering Facility: [facility] Address: [address] [place] [address] Performed By: #### 2 4323-8, 35049-2, 2777-1 ####[facility] CATHY MILLTOWNCLIA [id number] [place] [address] [place] Phosphate [Mass/Vol]on 01-12 Interpretation and review of laboratory results Normal [facility] ANES POSTPROC EVALon 024 ANES POSTPROC EVAL Normal [facility] ANES PRE-OPon 01-06-2024 ANES PRE-OP Normal [facility] CNOVon 01-06-2024 CNOV Normal [facility] ERCPon 01-06-2024 ERCP Normal [facility] ERCP Study observation Narra tiveon 01-06-2024 [facility] Radiology Study observation (narrative) [facility] HISTORY PHYSICALon HISTORY PHYSICAL Normal [facility] NURSING PROGon 01-06-2024 NURSING PROG Normal [facility] NURSING PROG Normal [facility] CNOVSPon 12-30-2023 CNOVSP Normal [facility] CNPNon 12-30-2023 CNPN Normal [facility] CBC W Auto Differential pane l (Bld)on 12-29-2023 Basophils (Bld) [#/Vol] 0.07 10*3/uL [facility] Basophils/100 WBC (Bld) 0.5 % [facility] Differential cell count method Nom (Bld) Auto [facility] Eosinophils (Bld) [#/Vol] 0.26 10*3/uL [facility] Eosinophils/100 WBC (Bld) 1.7 % [facility] Erythrocyte distribution width (RBC) [Ratio] 16.7 % High 11.5 - 15.0 % [facility] Hematocrit (Bld) [Volume fraction] 29.1 % Low 39.0 - 51.0 % [facility] Hemoglobin (Bld) [Mass/Vol] 9.0 g/dL Low 13.0 - 17.0 g/dL [facility] Immature granulocytes (Bld) [#/Vol] 0.15 10*3/uL High [facility] Immature granulocytes/100 WBC (Bld) 1.0 % [facility] Interpretation and review of laboratory results Abnormal [facility] Lymphocytes (Bld) [#/Vol] 1.42 10*3/uL [facility] Lymphocytes/100 WBC (Bld) 9.5 % [facility] MCH (RBC) [Entitic mass] 28.8 pg 26.0 - 34.0 pg [facility] MCHC (RBC) [Mass/Vol] 30.9 g/dL 30.5 - 36.0 g/dL [facility] MCV (RBC) [Entitic vol] 93.0 fL 80.0 - 100.0 fL [facility] Monocytes (Bld) [#/Vol] 0.95 10*3/uL High NINF [facility] Monocytes/100 WBC (Bld) 6.4 % [facility] Neutrophils (Bld) [#/Vol] 12.02 10*3/uL High [facility] Neutrophils/100 WBC (Bld) 80.9 % [facility] Nucleated RBC (Bld) [#/Vol] NINF [facility] Nucleated RBC/100 WBC (Bld) [Ratio] 0.0 % /100 WBC [facility] Platelet mean volume (Bld) [Entitic vol] 10.3 fL 9.0 - 12.7 fL [facility] Platelets (Bld) [#/Vol] 179 10*3/uL [facility] RBC (Bld) [#/Vol] 3.13 10*6/uL Low 4.20 - 6.00 m/uL [facility] WBC (Bld) [#/Vol] 14.87 10*3/uL High [facility] Basophils (Bld) [#/Vol] 0.07 10*3/uL Normal <0.11 [facility] Comment on above: Order Comment: Speci men Type: BLOOD SPECIMENOrdering Facility: [facility] Address: [address] [place] [address] Performed By: #### 5 7021-8 ####[facility] [id number] [address] [place] Basophils/100 WBC (Bld) 0.5 % Normal [facility] Comment on above: Order Comment: Speci men Type: BLOOD SPECIMENOrdering Facility: [facility] Address: [address] [place] [address] Performed By: #### 5 7021-8 ####[facility] [id number] [place] [address] [place] Differential cell count method Nom (Bld) Auto Normal [facility] Comment on above: Order Comment: Speci men Type: BLOOD SPECIMENOrdering Facility: [facility] Address: [address] [place] [address] Performed By: #### 5 7021-8 ####[facility] [id number] [place] [address] [place] Eosinophils (Bld) [#/Vol] 0.26 10*3/uL Normal <0.46 [facility] Comment on above: Order Comment: Speci men Type: BLOOD SPECIMENOrdering Facility: [facility] Address: [address] [place] [address] Performed By: #### 5 7021-8 ####[facility] [id number] [place] [address] [place] Eosinophils/100 WBC (Bld) 1.7 % Normal [facility] Comment on above: Order Comment: Speci men Type: BLOOD SPECIMENOrdering Facility: [facility] Address: [address] [place] [address] Performed By: #### 5 7021-8 ####[facility] [id number] [place] [address] [place] Erythrocyte distribution width (RBC) [Ratio] 16.7 % High 11.5-15.0 [facility] Comment on above: Order Comment: Speci men Type: BLOOD SPECIMENOrdering Facility: [facility] Address: [address] [place] [address] Performed By: #### 5 7021-8 ####[facility]PITALNCMO[facility] [id number] [place] [address] [place] Hematocrit (Bld) [Volume fraction] 29.1 % Low 39.0-51.0 [facility] Comment on above: Order Comment: Speci men Type: BLOOD SPECIMENOrdering Facility: [facility] Address: [address] [place] [address] Performed By: #### 5 7021-8 ####[facility] VAAuraNCCAMILLE [id number] [place] [address] [place] Hemoglobin (Bld) [Mass/Vol] 9.0 g/dL Low 13.0-17.0 [facility] Comment on above: Order Comment: Speci men Type: BLOOD SPECIMENOrdering Facility: [facility] Address: [address] [place] [address] Performed By: #### 5 7021-8 ####[facility] HOSPITALCRISTOFERNorma [id number] [place] [address] [place] Immature granulocytes (Bld) [#/Vol] 0.15 10*3/uL High <0.10 [facility] Comment on above: Order Comment: Speci men Type: BLOOD SPECIMENOrdering Facility: [facility] Address: [address] [place] [address] Performed By: #### 5 7021-8 ####[facility] FLORIDAA [id number] [place] [address] [place] Immature granulocytes/100 WBC (Bld) 1.0 % Normal [facility] Comment on above: Order Comment: Speci men Type: BLOOD SPECIMENOrdering Facility: [facility] Address: [address] [place] [address] Performed By: #### 5 7021-8 ####[facility] HOSPITALNCLIA [id number] [place] [address] [place] Lymphocytes (Bld) [#/Vol] 1.42 10*3/uL Normal 1.00-4.00 [facility] Comment on above: Order Comment: Speci men Type: BLOOD SPECIMENOrdering Facility: [facility] Address: [address] [place] [address] Performed By: #### 5 7021-8 ####[facility] MEDICAL CENTERLIA [id number] [place] [address] [place] Lymphocytes/100 WBC (Bld) 9.5 % Normal [facility] Comment on above: Order Comment: Speci men Type: BLOOD SPECIMENOrdering Facility: [facility] Address: [address] [place] [address] Performed By: #### 5 7021-8 ####[facility] [id number] [place] [address] [place] MCH (RBC) [Entitic mass] 28.8 pg Normal 26.0-34.0 [facility] Comment on above: Order Comment: Speci men Type: BLOOD SPECIMENOrdering Facility: [facility] Address: [address] [place] [address] Performed By: #### 5 7021-8 ####[facility] [id number] [place] [address] [place] MCHC (RBC) [Mass/Vol] 30.9 g/dL Normal 30.5-36.0 [facility] Comment on above: Order Comment: Speci men Type: BLOOD SPECIMENOrdering Facility: [facility] Address: [address] [place] [address] Performed By: #### 5 7021-8 ####[facility] [id number] [place] [address] [place] MCV (RBC) [Entitic vol] 93.0 fL Normal 80.0-100.0 [facility] Comment on above: Order Comment: Speci men Type: BLOOD SPECIMENOrdering Facility: [facility] Address: [address] [place], [place] [address] Performed By: #### 5 7021-8 ####[facility] [id number] [place] [address] [place] Monocytes (Bld) [#/Vol] 0.95 10*3/uL High <0.87 [facility] Comment on above: Order Comment: Speci men Type: BLOOD SPECIMENOrdering Facility: [facility] Address: [address] [place] [address] Performed By: #### 5 7021-8 ####[facility] [id number] [place] [address] [place] Monocytes/100 WBC (Bld) 6.4 % Normal [facility] Comment on above: Order Comment: Speci men Type: BLOOD SPECIMENOrdering Facility: [facility] Address: [address] [place] [address] Performed By: #### 5 7021-8 ####[facility] [id number] [place] [address] [place] Neutrophils (Bld) [#/Vol] 12.02 10*3/uL High 1.45-7.50 [facility] Comment on above: Order Comment: Speci men Type: BLOOD SPECIMENOrdering Facility: [facility] Address: [address] [place] [address] Performed By: #### 5 7021-8 ####[facility] [id number] [place] [address] [place] Neutrophils/100 WBC (Bld) 80.9 % Normal [facility] Comment on above: Order Comment: Speci men Type: BLOOD SPECIMENOrdering Facility: [facility] Address: [address] [place] [address] Performed By: #### 5 7021-8 ####[facility] [id number] [place] [address] [place] Nucleated RBC (Bld) [#/Vol] 10*3/uL Normal <0.01 [facility] Comment on above: Order Comment: Speci men Type: BLOOD SPECIMENOrdering Facility: [facility] Address: [address] [place] [address] Performed By: #### 5 7021-8 ####[facility] TYLER [id number] [place] [address] [place] Nucleated RBC/100 WBC (Bld) [Ratio] 0.0 /100 WBC Normal [facility] Comment on above: Order Comment: Speci men Type: BLOOD SPECIMENOrdering Facility: [facility] Address: [address] [place] [address] Performed By: #### 5 7021-8 ####[facility] VAAuraNCCAMILLE [id number] [place] [address] [place] Platelet mean volume (Bld) [Entitic vol] 10.3 fL Normal 9.0-12.7 [facility] Comment on above: Order Comment: Speci men Type: BLOOD SPECIMENOrdering Facility: [facility] Address: [address] [place] [address] Performed By: #### 5 7021-8 ####[facility] VAQUECHEEТАТЬЯНА [id number] [place] [address] [place] Platelets (Bld) [#/Vol] 179 10*3/uL Normal 150-400 [facility] Comment on above: Order Comment: Speci men Type: BLOOD SPECIMENOrdering Facility: [facility] Address: [address] [place] [address] Performed By: #### 5 7021-8 ####[facility] HOSPITALCRISTOFERLIA [id number] [place] [address] [place] RBC (Bld) [#/Vol] 3.13 10*6/uL Low 4.20-6.00 [facility] Comment on above: Order Comment: Speci men Type: BLOOD SPECIMENOrdering Facility: [facility] Address: [address] [place] [address] Performed By: #### 5 7021-8 ####[facility] HOSPITALNCLIA [id number] [place] [address] [place] WBC (Bld) [#/Vol] 14.87 10*3/uL High 3.70-11.00 [facility] Comment on above: Order Comment: Speci men Type: BLOOD SPECIMENOrdering Facility: [facility] Address: [address] [place] [address] Performed By: #### 5 7021-8 ####[facility] HOSPITALNCLIA [id number] [place] [address] [place] CNOVSPon 12-29-2023 CNOVSP Normal [facility] CNPNon 12-29-2023 CNPN Normal [facility] Cancer Ag19-9 SerPl-aCncon 0 12-29-2023 Cancer Ag 19-9 Qn 85.0 [arb'U]/mL High <36.0 [facility] Comment on above: Order Comment: Speci men Type: BLOOD SPECIMENOrdering Facility: [facility] Address: [address] [place] [address] Result Comment: Rust er antigen 19-9 test is used as an aid in monitoring response to treatment or recurrence in patients with established pancreatic, hepatobiliary, or gastrointestinal malignancies. Clinical correlation is required.The CA 19-9 Antigen test was performed using the [employer] customer insight Un[employer]el DXI paramagnetic particle chemiluminescent immunoassay method. Results obtained with different assay methods or kits cannot be used interchangeably. Performed By: #### 2 4108-3 ####[facility] LABCLIA [id number] [place] [address] [place] Comprehensive metabolic 2000 panelOrdered By: Felicia Macias on 12-29-2023 Albumin [Mass/Vol] 3.7 g/dL Low 3.9 - 4.9 g/dL [facility] ALP [Catalytic activity/Vol] 203 U/L High 38 - 113 U/L [facility] ALT [Catalytic activity/Vol] 13 U/L 10 - 54 U/L [facility] Anion gap [Moles/Vol] 13 mmol/L 8 - 15 mmol/L [facility] AST [Catalytic activity/Vol] 23 U/L 14 - 40 U/L [facility] Bilirubin [Mass/Vol] 0.2 mg/dL 0.2 - 1.3 mg/dL [facility] Calcium [Mass/Vol] 8.6 mg/dL 8.5 - 10. 2 mg/dL [facility] Chloride [Moles/Vol] 110 mmol/L High 98 - 107 mmol/L [facility] CO2 [Moles/Vol] 16 mmol/L Low 22 - 30 mmol/L [facility] Creatinine [Mass/Vol] 1.55 mg/dL High 0.73 - 1.22 mg/dL [facility] GFR/1.73 sq M.predicted among non-blacks MDRD (S/P/Bld) [Vol rate/Area] 48 mL/min/{1.73_m2} Low - PINF [facility] Comment on above: Estimated Glomerular Filtration Rate (eGFR) is calculated using the 2020 CKD-EPI creatinine equation. This equation utilizes serum creatinine, sex, and age as parameters. The creatinine assay has traceable calibration to isotope dilution-mass spectrometry. Refer to KDIGO guidelines for clinical interpretation. In patients with unstable renal function, e.g. those with acute kidney injury, the eGFR may not accurately reflect actual GFR. Glucose [Mass/Vol] 233 mg/dL High 74 - 99 mg/dL [facility] Comment on above: The [place] Di[employer] Association (ADA) provides guidance for cutoff values for fasting glucose and random glucose. The ADA defines fasting as no caloric intake for at least 8 hours. Fasting plasma glucose results between 100 to 125 mg/dL indicate increased risk for diabetes (prediabetes). Fasting plasma glucose results greater than or equal to 126 mg/dL meet the criteria for diagnosis of diabetes. In the absence of unequivocal hyperglycemia, results should be confirmed by repeat testing. In a patient with classic symptoms of hyperglycemia or hyperglycemic crisis, random plasma glucose results greater than or equal to 200 mg/dL meet the criteria for diagnosis of diabetes. Reference: Standards of Medical Care in Diabetes 2016, [place] [employer]. Diabetes Care. 2016.39(Suppl 1). Potassium [Moles/Vol] 3.8 mmol/L 3.7 - 5.1 mmol/L [facility] Protein [Mass/Vol] 6.3 g/dL 6.3 - 8.0 g/dL [facility] Sodium [Moles/Vol] 139 mmol/L 136 - 144 mmol/L [facility] Urea nitrogen [Mass/Vol] 21 mg/dL 9 - 24 mg/dL [facility] Comprehensive metabolic 2000 panelon 12-29-2023 Albumin [Mass/Vol] 3.7 g/dL Low 3.9-4.9 [facility] Comment on above: Order Comment: Speci men Type: BLOOD SPECIMENOrdering Facility: [facility] Address: [address] [place], [place] [address] Performed By: #### 1 9123-9, 2777-1, 91068-1 ####[facility] HOSPITALТАТЬЯНА [id number] [place] [address] [place] ALP [Catalytic activity/Vol] 203 U/L High 38-113 [facility] Comment on above: Order Comment: Speci men Type: BLOOD SPECIMENOrdering Facility: [facility] Address: [address] [place] [address] Performed By: #### 1 9123-9, 2777-1, 12267-6 ####[facility]ICAL CENTERCAMILLE [id number] [place] [address] [place] ALT [Catalytic activity/Vol] 13 U/L Normal 10-54 [facility] Comment on above: Order Comment: Speci men Type: BLOOD SPECIMENOrdering Facility: [facility] Address: [address] [place] [address] Performed By: #### 1 9123-9, 2777-1, 25593-0 ####[facility] HOSPITALITALOA [id number] [place] [address] [place] Anion gap [Moles/Vol] 13 mmol/L Normal 8-15 [facility] Comment on above: Order Comment: Speci men Type: BLOOD SPECIMENOrdering Facility: [facility] Address: [address] [place] [address] Performed By: #### 1 9123-9, 2777-1, 65658-3 ####[facility] MARYNCLIA [id number] [place] [address] [place] AST [Catalytic activity/Vol] 23 U/L Normal 14-40 [facility] Comment on above: Order Comment: Speci men Type: BLOOD SPECIMENOrdering Facility: [facility] Address: [address] [place] [address] Performed By: #### 1 9123-9, 2777-1, 00535-3 ####[facility] VAQUECHEENCLIA [id number] [place] [address] [place] Bilirubin [Mass/Vol] 0.2 mg/dL Normal 0.2-1.3 [facility] Comment on above: Order Comment: Speci men Type: BLOOD SPECIMENOrdering Facility: [facility] Address: [address] [place] [address] Performed By: #### 1 9123-9, 2777-, 25575-1 ####[facility] HOSPITALNCLIA [id number] [place] [address] [place] Calcium [Mass/Vol] 8.6 mg/dL Normal 8.5-10.2 [facility] Comment on above: Order Comment: Speci men Type: BLOOD SPECIMENOrdering Facility: [facility] Address: [address] [place], [place] [address] Performed By: #### 1 9123-9, 2777-1, 29452-2 ####[facility] HOSPITALNCLIA [id number] [place] [address] [place] Chloride [Moles/Vol] 110 mmol/L High 98-107 [facility] Comment on above: Order Comment: Speci men Type: BLOOD SPECIMENOrdering Facility: [facility] Address: [address] [place] [address] Performed By: #### 1 9123-9, 2777-, 20074-4 ####[facility] VAWNCLIA [id number] [place] [address] [place] CO2 [Moles/Vol] 16 mmol/L Low 22-30 [facility] Comment on above: Order Comment: Speci men Type: BLOOD SPECIMENOrdering Facility: [facility] Address: [address] [place] [address] Performed By: #### 1 9123-9, 2777-, 06195-5 ####[facility] HOSPITALWNCLIA [id number] [place] [address] [place] Creatinine [Mass/Vol] 1.55 mg/dL High 0.73-1.22 [facility] Comment on above: Order Comment: Speci men Type: BLOOD SPECIMENOrdering Facility: [facility] Address: [address] [place] [address] Performed By: #### 1 9123-9, 2777, 81023-4 ####[facility] HOSPITALNCLIA [id number] [place] [address] [place] Creatinine and Glomerular filtration rate.predicted panel (S/P/Bld) 48 mL/min/1.73m??? Low >=60 [facility] Comment on above: Order Comment: Speci men Type: BLOOD SPECIMENOrdering Facility: [facility] Address: [address] [place] [address] Result Comment: Emely mated Glomerular Filtration Rate (eGFR) is calculated using the 2020 CKD-EPI creatinine equation. This equation utilizes serum creatinine, sex, and age as parameters. The creatinine assay has traceable calibration to isotope dilution-mass spectrometry. Refer to KDIGO guidelines for clinical interpretation. In patients with unstable renal function, e.g. those with acute kidney injury, the eGFR may not accurately reflect actual GFR. Performed By: #### 1 9123-9, 2777-, 68053-2 ####[facility] MILLTOWNCLIA [id number] [place] [address] [place] Glucose [Mass/Vol] 233 mg/dL High 74-99 [facility] Comment on above: Order Comment: Speci men Type: BLOOD SPECIMENOrdering Facility: [facility] Address: [address] [place], [place] [address] Result Comment: The [place] Diabetes Association (ADA) provides guidance for cutoff values for fasting glucose and random glucose. The ADA defines fasting as no caloric intake for at least 8 hours. Fasting plasma glucose results between 100 to 125 mg/dL indicate increased risk for diabetes (prediabetes).Fasting plasma glucose results greater than or equal to 126 mg/dL meet the criteria for diagnosis of diabetes. In the absence of unequivocal hyperglycemia, results should be confirmed by repeat testing. In a patient with classic symptoms of hyperglycemia or hyperglycemic crisis, random plasma glucose results greater than or equal to 200 mg/dL meet the criteria for diagnosis of diabetes.Reference: Standards of Medical Care in Diabetes 2016, [place] Diabetes Association. Diabetes Care. 2016.39(Suppl 1). Performed By: #### 1 9123-9, 2777-1, 86559-7 ####[facility] HOSPITALWNCLIA [id number] [place] [address] [place] Potassium [Moles/Vol] 3.8 mmol/L Normal 3.7-5.1 [facility] Comment on above: Order Comment: Speci men Type: BLOOD SPECIMENOrdering Facility: [facility] Address: [address] [place] [address] Performed By: #### 1 9123-9, 2777-1, 49596-2 ####[facility] HOSPITALNCLIA [id number] [place] [address] [place] Protein [Mass/Vol] 6.3 g/dL Normal 6.3-8.0 [facility] Comment on above: Order Comment: Speci men Type: BLOOD SPECIMENOrdering Facility: [facility] Address: [address] [place], [place] [address] Performed By: #### 1 9123-9, 2776-06, 42237-2 ####[facility] MILLTOWNCLIA [id number] [place] [address] [place] Sodium [Moles/Vol] 139 mmol/L Normal 136-144 [facility] Comment on above: Order Comment: Speci men Type: BLOOD SPECIMENOrdering Facility: [facility] Address: [address] [place] [address] Performed By: #### 1 9123-9, 2776-06, ####[facility] HOSPITALWAKLIA [id number] [place] [address] [place] Urea nitrogen [Mass/Vol] 21 mg/dL Normal 9-24 [facility] Comment on above: Order Comment: Speci men Type: BLOOD SPECIMENOrdering Facility: [facility] Address: [address] [place] [address] Performed By: #### 1 9123-9, 2776-06, ####[facility] HOSPITALCRISTOFERLIA [id number] [place] [address] [place] MAGNESIUM BLDon 12-29-2023 Magnesium [Mass/Vol] 1.1 mg/dL Low 1.7 - 2.3 mg/dL [facility] Magnesium SerPl-mCncon 12-28 Magnesium [Mass/Vol] 1.1 mg/dL Low 1.7-2.3 [facility] Comment on above: Order Comment: Speci men Type: BLOOD SPECIMENOrdering Facility: [facility] Address: [address] [place] [address] Performed By: #### 1 9123-9, 27712-07, ####[facility] HOSPITALWNCLIA [id number] [place] [address] [place] No Panel Informationon 12-28 Interpretation and review of laboratory results Abnormal [facility] PHOSPHORUS INORGANICon 12-28 Phosphate [Mass/Vol] 2.0 mg/dL Low 2.7 - 4.8 mg/dL [facility] Phosphate SerPl-mCncon 12-28 Phosphate [Mass/Vol] 2.0 mg/dL Low 2.7-4.8 [facility] Comment on above: Order Comment: Speci men Type: BLOOD SPECIMENOrdering Facility: [facility] Address: [address] [place] [address] Performed By: #### 1 9123-9, 2777-1, 30203-2 ####[facility] CATHY MILLTOWNCLIA [id number] [place] [address] [place] Phosphate [Mass/Vol]on 12-28 Interpretation and review of laboratory results Abnormal [facility] CT ABD/PEL W IVCONon 024 CT ABD/PEL W IVCON Invalid Interpretation Code [facility] CT CHEST W IVCONon 4 CT CHEST W IVCON Normal [facility] CNPNon 12-24-2023 CNPN Normal [facility] CBC W Auto Differential pane l (Bld)on 12-16-2023 Basophils (Bld) [#/Vol] 0.18 10*3/uL High [facility] Basophils/100 WBC (Bld) 1.4 % [facility] Differential cell count method Nom (Bld) Auto [facility] Eosinophils (Bld) [#/Vol] 0.17 10*3/uL [facility] Eosinophils/100 WBC (Bld) 1.3 % [facility] Erythrocyte distribution width (RBC) [Ratio] 17.1 % High 11.5 - 15.0 % [facility] Hematocrit (Bld) [Volume fraction] 29.7 % Low 39.0 - 51.0 % [facility] Hemoglobin (Bld) [Mass/Vol] 9.2 g/dL Low 13.0 - 17.0 g/dL [facility] Immature granulocytes (Bld) [#/Vol] 0.08 10*3/uL [facility] Immature granulocytes/100 WBC (Bld) 0.6 % [facility] Interpretation and review of laboratory results Abnormal [facility] Lymphocytes (Bld) [#/Vol] 1.69 10*3/uL [facility] Lymphocytes/100 WBC (Bld) 12.8 % [facility] MCH (RBC) [Entitic mass] 29.2 pg 26.0 - 34.0 pg [facility] MCHC (RBC) [Mass/Vol] 31.0 g/dL 30.5 - 36.0 g/dL [facility] MCV (RBC) [Entitic vol] 94.3 fL 80.0 - 100.0 fL [facility] Monocytes (Bld) [#/Vol] 1.16 10*3/uL High [facility] Monocytes/100 WBC (Bld) 8.8 % [facility] Neutrophils (Bld) [#/Vol] 9.89 10*3/uL High [facility] Neutrophils/100 WBC (Bld) 75.1 % [facility] Nucleated RBC (Bld) [#/Vol] [facility] Nucleated RBC/100 WBC (Bld) [Ratio] 0.0 % /100 WBC [facility] Platelet mean volume (Bld) [Entitic vol] 10.0 fL 9.0 - 12.7 fL [facility] Platelets (Bld) [#/Vol] 248 10*3/uL [facility] RBC (Bld) [#/Vol] 3.15 10*6/uL Low 4.20 - 6.00 m/uL [facility] WBC (Bld) [#/Vol] 13.17 10*3/uL [facility] Basophils (Bld) [#/Vol] 0.18 10*3/uL High <0.11 [facility] Comment on above: Order Comment: Speci men Type: BLOOD SPECIMENOrdering Facility: [facility] Address: [address] [place] [address] Performed By: #### 5 7021-8 ####[facility] CATHYMER[facility] [id number] [place] [address] [place] Basophils/100 WBC (Bld) 1.4 % Normal [facility] Comment on above: Order Comment: Speci men Type: BLOOD SPECIMENOrdering Facility: [facility] Address: [address] [place] [address] Performed By: #### 5 7021-8 ####[facility] HOSPITALNCLIA [id number] [place] [address] [place] Differential cell count method Nom (Bld) Auto Normal [facility] Comment on above: Order Comment: Speci men Type: BLOOD SPECIMENOrdering Facility: [facility] Address: [address] [place] [address] Performed By: #### 5 7021-8 ####[facility] [id number] [place] [address] [place] Eosinophils (Bld) [#/Vol] 0.17 10*3/uL Normal <0.46 [facility] Comment on above: Order Comment: Speci men Type: BLOOD SPECIMENOrdering Facility: [facility] Address: [address] [place] [address] Performed By: #### 5 7021-8 ####[facility] [id number] [place] [address] [place] Eosinophils/100 WBC (Bld) 1.3 % Normal [facility] Comment on above: Order Comment: Speci men Type: BLOOD SPECIMENOrdering Facility: [facility] Address: [address] [place] [address] Performed By: #### 5 7021-8 ####[facility] [id number] [place] [address] [place] Erythrocyte distribution width (RBC) [Ratio] 17.1 % High 11.5-15.0 [facility] Comment on above: Order Comment: Speci men Type: BLOOD SPECIMENOrdering Facility: [facility] Address: [address] [place] [address] Performed By: #### 5 7021-8 ####[facility] HOSPITALNCA [id number] [place] [address] [place] Hematocrit (Bld) [Volume fraction] 29.7 % Low 39.0-51.0 [facility] Comment on above: Order Comment: Speci men Type: BLOOD SPECIMENOrdering Facility: [facility] Address: [address] [place] [address] Performed By: #### 5 7021-8 ####[facility] HOSPITALNCMOAB [facility] [id number] [place] [address] [place] Hemoglobin (Bld) [Mass/Vol] 9.2 g/dL Low 13.0-17.0 [facility] Comment on above: Order Comment: Speci men Type: BLOOD SPECIMENOrdering Facility: [facility] Address: [address] [place] [address] Performed By: #### 5 7021-8 ####[facility] HOSPITALNCMOAB [facility] [id number] [place] [address] [place] Immature granulocytes (Bld) [#/Vol] 0.08 10*3/uL Normal <0.10 [facility] Comment on above: Order Comment: Speci men Type: BLOOD SPECIMENOrdering Facility: [facility] Address: [address] [place] [address] Performed By: #### 5 7021-8 ####[facility] HOSPITALNCLIA [id number] [place] [address] [place] Immature granulocytes/100 WBC (Bld) 0.6 % Normal [facility] Comment on above: Order Comment: Speci men Type: BLOOD SPECIMENOrdering Facility: [facility] Address: [address] [place], [place] [address] Performed By: #### 5 7021-8 ####[facility] HOSPITALNCLIA [id number] [place] [address] [place] Lymphocytes (Bld) [#/Vol] 1.69 10*3/uL Normal 1.00-4.00 [facility] Comment on above: Order Comment: Speci men Type: BLOOD SPECIMENOrdering Facility: [facility] Address: [address] [place] [address] Performed By: #### 5 7021-8 ####[facility] HOSPITALТАТЬЯНА [id number] [address] [place] [facility] Lymphocytes/100 WBC (Bld) 12.8 % Normal [facility] Comment on above: Order Comment: Speci men Type: BLOOD SPECIMENOrdering Facility: [facility] Address: [address] [place] [address] Performed By: #### 5 7021-8 ####[facility] HOSPITALNCMOAB [facility] [id number] [place] [address] [place] MCH (RBC) [Entitic mass] 29.2 pg Normal 26.0-34.0 [facility] Comment on above: Order Comment: Speci men Type: BLOOD SPECIMENOrdering Facility: [facility] Address: [address] [place] [address] Performed By: #### 5 7021-8 ####[facility] HOSPITALNCNorma [id number] [place] [address] [place] MCHC (RBC) [Mass/Vol] 31.0 g/dL Normal 30.5-36.0 [facility] Comment on above: Order Comment: Speci men Type: BLOOD SPECIMENOrdering Facility: [facility] Address: [address] [place] [address] Performed By: #### 5 7021-8 ####[facility] HOSPITALNCLI [id number] [place] [address] [place] MCV (RBC) [Entitic vol] 94.3 fL Normal 80.0-100.0 [facility] Comment on above: Order Comment: Speci men Type: BLOOD SPECIMENOrdering Facility: [facility] Address: [address] [place] [address] Performed By: #### 5 7021-8 ####[facility] MILLWNCLIA [id number] [place] [address] [place] Monocytes (Bld) [#/Vol] 1.16 10*3/uL High <0.87 [facility] Comment on above: Order Comment: Speci men Type: BLOOD SPECIMENOrdering Facility: [facility] Address: [address] [place] [address] Performed By: #### 5 7021-8 ####[facility] HOSPITALWAKLIA [id number] [place] [address] [place] Monocytes/100 WBC (Bld) 8.8 % Normal [facility] Comment on above: Order Comment: Speci men Type: BLOOD SPECIMENOrdering Facility: [facility] Address: [address] [place] [address] Performed By: #### 5 7021-8 ####[facility] MEDICAL CENTERLIA [id number] [place] [address] [place] Neutrophils (Bld) [#/Vol] 9.89 10*3/uL High 1.45-7.50 [facility] Comment on above: Order Comment: Speci men Type: BLOOD SPECIMENOrdering Facility: [facility] Address: [address] [place] [address] Performed By: #### 5 7021-8 ####[facility] MEDICAL CENTERLIA [id number] [place] [address] [place] Neutrophils/100 WBC (Bld) 75.1 % Normal [facility] Comment on above: Order Comment: Speci men Type: BLOOD SPECIMENOrdering Facility: [facility] Address: [address] [place] [address] Performed By: #### 5 7021-8 ####[facility] HOSPITALNCLIA [id number] [place] [address] [place] Nucleated RBC (Bld) [#/Vol] 10*3/uL Normal <0.01 [facility] Comment on above: Order Comment: Speci men Type: BLOOD SPECIMENOrdering Facility: [facility] Address: [address] [place] [address] Performed By: #### 5 7021-8 ####[facility] [id number] [place] [address] [place] Nucleated RBC/100 WBC (Bld) [Ratio] 0.0 /100 WBC Normal [facility] Comment on above: Order Comment: Speci men Type: BLOOD SPECIMENOrdering Facility: [facility] Address: [address] [place] [address] Performed By: #### 5 7021-8 ####[facility] [id number] [place] [address] [place] Platelet mean volume (Bld) [Entitic vol] 10.0 fL Normal 9.0-12.7 [facility] Comment on above: Order Comment: Speci men Type: BLOOD SPECIMENOrdering Facility: [facility] Address: [address] [place] [address] Performed By: #### 5 7021-8 ####[facility] [id number] [place] [address] [place] Platelets (Bld) [#/Vol] 248 10*3/uL Normal 150-400 [facility] Comment on above: Order Comment: Speci men Type: BLOOD SPECIMENOrdering Facility: [facility] Address: [address] [place] [address] Performed By: #### 5 7021-8 ####[facility] [id number] [place] [address] [place] RBC (Bld) [#/Vol] 3.15 10*6/uL Low 4.20-6.00 [facility] Comment on above: Order Comment: Speci men Type: BLOOD SPECIMENOrdering Facility: [facility] Address: [address] [place] [address] Performed By: #### 5 7021-8 ####[facility] HOSPITALNCLIA [id number] [place] [address] [place] WBC (Bld) [#/Vol] 13.17 10*3/uL High 3.70-11.[address] [facility] [facility] Comment on above: Order Comment: Speci men Type: BLOOD SPECIMENOrdering Facility: [facility] Address: [address] [place] [address] Performed By: #### 5 7021-8 ####[facility] HOSPITALNCLIA [id number] [place] [address] [place] CNOVSPon 12-16-2023 CNOVSP Normal [facility] Cancer Ag19-9 SerPl-aCncon 0 12-16-2023 Cancer Ag 19-9 Qn 101.0 [arb'U]/mL High <36.0 [facility] Comment on above: Order Comment: Speci men Type: BLOOD SPECIMENOrdering Facility: [facility] Address: [address] [place] [address] Result Comment: Rust er antigen 19-9 test is used as an aid in monitoring response to treatment or recurrence in patients with established pancreatic, hepatobiliary, or gastrointestinal malignancies. Clinical correlation is required.The CA 19-9 Antigen test was performed using the [employer] customer insight Un[employer] DXI paramagnetic particle chemiluminescent immunoassay method. Results obtained with different assay methods or kits cannot be used interchangeably. Performed By: #### 2 4108-3 ####[facility] LABCLIA [id number] [place] [address] [place] Comprehensive metabolic 2000 panelOrdered By: Felicia Macias on 12-16-2023 Albumin [Mass/Vol] 3.7 g/dL Low 3.9 - 4.9 g/dL [facility] ALP [Catalytic activity/Vol] 105 U/L 38 - 113 U/L [facility] ALT [Catalytic activity/Vol] 12 U/L 10 - 54 U/L [facility] Anion gap [Moles/Vol] 14 mmol/L 8 - 15 mmol/L [facility] AST [Catalytic activity/Vol] 23 U/L 14 - 40 U/L [facility] Bilirubin [Mass/Vol] 0.2 mg/dL 0.2 - 1.3 mg/dL [facility] Calcium [Mass/Vol] 8.9 mg/dL 8.5 - 10. 2 mg/dL [facility] Chloride [Moles/Vol] 105 mmol/L 98 - 107 mmol/L [facility] CO2 [Moles/Vol] 19 mmol/L Low 22 - 30 mmol/L [facility] Creatinine [Mass/Vol] 1.90 mg/dL High 0.73 - 1.22 mg/dL [facility] GFR/1.73 sq M.predicted among non-blacks MDRD (S/P/Bld) [Vol rate/Area] 37 mL/min/{1.73_m2} Low - PINF [facility] Comment on above: Estimated Glomerular Filtration Rate (eGFR) is calculated using the 2020 CKD-EPI creatinine equation. This equation utilizes serum creatinine, sex, and age as parameters. The creatinine assay has traceable calibration to isotope dilution-mass spectrometry. Refer to KDIGO guidelines for clinical interpretation. In patients with unstable renal function, e.g. those with acute kidney injury, the eGFR may not accurately reflect actual GFR. Glucose [Mass/Vol] 254 mg/dL High 74 - 99 mg/dL [facility] Comment on above: The [place] Diab[employer] [place] Association (ADA) provides guidance for cutoff values for fasting glucose and random glucose. The ADA defines fasting as no caloric intake for at least 8 hours. Fasting plasma glucose results between 100 to 125 mg/dL indicate increased risk for diabetes (prediabetes). Fasting plasma glucose results greater than or equal to 126 mg/dL meet the criteria for diagnosis of diabetes. In the absence of unequivocal hyperglycemia, results should be confirmed by repeat testing. In a patient with classic symptoms of hyperglycemia or hyperglycemic crisis, random plasma glucose results greater than or equal to 200 mg/dL meet the criteria for diagnosis of diabetes. Reference: Standards of Medical Care in Diabetes 2016, [place] [employer]. Diabetes Care. 2016.39(Suppl 1). Potassium [Moles/Vol] 4.5 mmol/L 3.7 - 5.1 mmol/L [facility] Protein [Mass/Vol] 6.1 g/dL Low 6.3 - 8.0 g/dL [facility] Sodium [Moles/Vol] 138 mmol/L 136 - 144 mmol/L [facility] Urea nitrogen [Mass/Vol] 40 mg/dL High 9 - 24 mg/dL [facility] Comprehensive metabolic 2000 panelon 12-16-2023 Albumin [Mass/Vol] 3.7 g/dL Low 3.9-4.9 [facility] Comment on above: Order Comment: Speci men Type: BLOOD SPECIMENOrdering Facility: [facility] Address: [address] [place] [address] Performed By: #### 2 4323-8, 2777-1, 16423-8 ####[facility] HOSPITALNCCAMILLE [id number] [place] [address] [place] ALP [Catalytic activity/Vol] 105 U/L Normal 38-113 [facility] Comment on above: Order Comment: Speci men Type: BLOOD SPECIMENOrdering Facility: [facility] Address: [address] [place] [address] Performed By: #### 2 4323-8, 2777-1, 96565-5 ####[facility] HOSPITALNCROBERTA [id number] [place] [address] [place] ALT [Catalytic activity/Vol] 12 U/L Normal 10-54 [facility] Comment on above: Order Comment: Speci men Type: BLOOD SPECIMENOrdering Facility: [facility] Address: [address] [place] [address] Performed By: #### 2 4323-8, 2777-, ####[facility] HOSPITALNCLIA [id number] [place] [address] [place] Anion gap [Moles/Vol] 14 mmol/L Normal 8-15 [facility] Comment on above: Order Comment: Speci men Type: BLOOD SPECIMENOrdering Facility: [facility] Address: [address] [place] [address] Performed By: #### 2 4323-8, 2777-1, 56772-4 ####[facility] NORTHJOSH SCOTT [id number] [place] [address] [place] AST [Catalytic activity/Vol] 23 U/L Normal 14-40 [facility] Comment on above: Order Comment: Speci men Type: BLOOD SPECIMENOrdering Facility: [facility] Address: [address] [place] [address] Performed By: #### 2 4323-8, 2777-1, 61355-2 ####[facility] VAGLENA [id number] [place] [address] [place] Bilirubin [Mass/Vol] 0.2 mg/dL Normal 0.2-1.3 [facility] Comment on above: Order Comment: Speci men Type: BLOOD SPECIMENOrdering Facility: [facility] Address: [address] [place] [address] Performed By: #### 2 4323-8, 2777-, 93345-6 ####[facility] VAQUECHEEITALOA [id number] [place] [address] [place] Calcium [Mass/Vol] 8.9 mg/dL Normal 8.5-10.2 [facility] Comment on above: Order Comment: Speci men Type: BLOOD SPECIMENOrdering Facility: [facility] Address: [address] [place] [address] Performed By: #### 2 4323-8, 2777-1, 67159-9 ####[facility] VAQUECHEENCLIA [id number] [place] [address] [place] Chloride [Moles/Vol] 105 mmol/L Normal 98-107 [facility] Comment on above: Order Comment: Speci men Type: BLOOD SPECIMENOrdering Facility: [facility] Address: [address] [place], [place] [address] Performed By: #### 2 4323-8, 2777-1, 36586-2 ####[facility] VAQUECHEEITALOA [id number] [place] [address] [place] CO2 [Moles/Vol] 19 mmol/L Low 22-30 [facility] Comment on above: Order Comment: Speci men Type: BLOOD SPECIMENOrdering Facility: [facility] Address: [address] [place] [address] Performed By: #### 2 4323-8, 2777-, 93479-1 ####[facility] HOSPITALNCLIA [id number] [place] [address] [place] Creatinine [Mass/Vol] 1.90 mg/dL High 0.73-1.22 [facility] Comment on above: Order Comment: Speci men Type: BLOOD SPECIMENOrdering Facility: [facility] Address: [address] [place] [address] Performed By: #### 2 4323-8, 2777-, 72211-7 ####[facility] FLORIDAA [id number] [place] [address] [place] Creatinine and Glomerular filtration rate.predicted panel (S/P/Bld) 37 mL/min/1.73m??? Low >=60 [facility] Comment on above: Order Comment: Speci men Type: BLOOD SPECIMENOrdering Facility: [facility] Address: [address] [place] [address] Result Comment: Emely mated Glomerular Filtration Rate (eGFR) is calculated using the 2020 CKD-EPI creatinine equation. This equation utilizes serum creatinine, sex, and age as parameters. The creatinine assay has traceable calibration to isotope dilution-mass spectrometry. Refer to KDIGO guidelines for clinical interpretation. In patients with unstable renal function, e.g. those with acute kidney injury, the eGFR may not accurately reflect actual GFR. Performed By: #### 2 4323-8, 2777-, 54175-8 ####[facility] HOSPITALTOWNCLIA [id number] [place] [address] [place] Glucose [Mass/Vol] 254 mg/dL High 74-99 [facility] Comment on above: Order Comment: Speci men Type: BLOOD SPECIMENOrdering Facility: [facility] Address: [address] [place] [address] Result Comment: The [place] Diabetes Association (ADA) provides guidance for cutoff values for fasting glucose and random glucose. The ADA defines fasting as no caloric intake for at least 8 hours. Fasting plasma glucose results between 100 to 125 mg/dL indicate increased risk for diabetes (prediabetes).Fasting plasma glucose results greater than or equal to 126 mg/dL meet the criteria for diagnosis of diabetes. In the absence of unequivocal hyperglycemia, results should be confirmed by repeat testing. In a patient with classic symptoms of hyperglycemia or hyperglycemic crisis, random plasma glucose results greater than or equal to 200 mg/dL meet the criteria for diagnosis of diabetes.Reference: Standards of Medical Care in Diabetes 2016, [place] [employer] Association. Diabetes Care. 2016.39(Suppl 1). Performed By: #### 2 4323-8, 2777-1, 24747-7 ####[facility] HOSPITALNCLIA [id number] [place] [address] [place] Potassium [Moles/Vol] 4.5 mmol/L Normal 3.7-5.1 [facility] Comment on above: Order Comment: Speci men Type: BLOOD SPECIMENOrdering Facility: [facility] Address: [address] [place] [address] Performed By: #### 2 4323-8, 2777-1, 62565-3 ####[facility] HOSPITALNCLIA [id number] [place] [address] [place] Protein [Mass/Vol] 6.1 g/dL Low 6.3-8.0 [facility] Comment on above: Order Comment: Speci men Type: BLOOD SPECIMENOrdering Facility: [facility] Address: [address] [place] [address] Performed By: #### 2 4323-8, 2777-, ####[facility] CATHY MILLTOWNCLIA [id number] [place] [address] [place] Sodium [Moles/Vol] 138 mmol/L Normal 136-144 [facility] Comment on above: Order Comment: Speci men Type: BLOOD SPECIMENOrdering Facility: [facility] Address: [facility] [place] [address] Performed By: #### 2 4323-8, 2777, ####[facility] MILLRAULWCRISTOFERLIA [id number] [place] [address] [place] Urea nitrogen [Mass/Vol] 40 mg/dL High 9-24 [facility] Comment on above: Order Comment: Speci men Type: BLOOD SPECIMENOrdering Facility: [facility] Address: [facility] [place] [address] Performed By: #### 2 4323-8, 2777, ####[facility] MILLTOWCRISTOFERLIA [id number] [place] [address] [place] MAGNESIUM BLDon 12-16-2023 Magnesium [Mass/Vol] 1.3 mg/dL Low 1.7 - 2.3 mg/dL [facility] Magnesium SerPl-mCncon 12-15 Magnesium [Mass/Vol] 1.3 mg/dL Low 1.7-2.3 [facility] Comment on above: Order Comment: Speci men Type: BLOOD SPECIMENOrdering Facility: [facility] Address: [facility] [place] [address] Performed By: #### 2 4323-8, 27712-07, ####[facility] MILLTOWCRISTOFERLIA [id number] [place] [address] [place] No Panel Informationon 12-15 Interpretation and review of laboratory results Abnormal [facility] PHOSPHORUS INORGANICon 12-15 Phosphate [Mass/Vol] 2.8 mg/dL 2.7 - 4.8 mg/dL [facility] Phosphate SerPl-mCncon 12-15 Phosphate [Mass/Vol] 2.8 mg/dL Normal 2.7-4.8 [facility] Comment on above: Order Comment: Speci rubia Type: BLOOD SPECIMENOrdering Facility: [facility] Address: [address] [place] [address] Performed By: #### 2 4323-8, 2777-1, 32787-9 ####[facility] CATHY MILLQUECHEENCLIA [id number] [place] [address] [place] Phosphate [Mass/Vol]on 12-15 Interpretation and review of laboratory results Normal [facility] CNPNon 12-15-2023 CNPN Normal [facility] CASE MANAGEMon 12-12-2023 CASE MANAGEM Normal [facility] CNDSon 12-12-2023 CNDS [facility] CONSULT PROGon 12-12-2023 CONSULT PROG [facility] NUTRITIONon 12-12-2023 NUTRITION Normal [facility] CREATININE BLDon 12-11-2023 Creatinine [Mass/Vol] 1.93 mg/dL High 0.73-1.22 [facility] Comment on above: Order Comment: Lay barkley Type: BLOOD SPECIMENOrdering Facility: [facility] Address: [address] [place] [address] Performed By: #### C RET1 ####[facility]ORATORYCLIA [id number] [place] [address] [place] Creatinine and Glomerular filtration rate.predicted panel (S/P/Bld) 37 mL/min/1.73m??? Low >=60 [facility] Comment on above: Order Comment: Calii men Type: BLOOD SPECIMENOrdering Facility: [facility] Address: [address] [place] [address] Result Comment: Emely mated Glomerular Filtration Rate (eGFR) is calculated using the 2020 CKD-EPI creatinine equation. This equation utilizes serum creatinine, sex, and age as parameters. The creatinine assay has traceable calibration to isotope dilution-mass spectrometry. Refer to KDIGO guidelines for clinical interpretation. In patients with unstable renal function, e.g. those with acute kidney injury, the eGFR may not accurately reflect actual GFR. Performed By: #### C RET1 ####[facility] LABORATORYCLIA [id number] [place] [address] [place] ALLIED HEALTHon 12-10-2023 ALLIED HEALTH Normal [facility] Basic metabolic 2000 panelon 12-10-2023 Anion gap [Moles/Vol] 12 mmol/L Normal 8-15 [facility] Comment on above: Order Comment: Speci men Type: BLOOD SPECIMENOrdering Facility: [facility] Address: [address] [place] [address] Performed By: #### 2 4321-2 ####[facility] LABORATORYCLIA [id number] [place] [address] [place] Calcium [Mass/Vol] 8.8 mg/dL Normal 8.5-10.2 [facility] Comment on above: Order Comment: Speci men Type: BLOOD SPECIMENOrdering Facility: [facility] Address: [address] [place] [address] Performed By: #### 2 4321-2 ####[facility] LABORATORYCLIA [id number] [place] [address] [place] Chloride [Moles/Vol] 105 mmol/L Normal 98-107 [facility] Comment on above: Order Comment: Speci men Type: BLOOD SPECIMENOrdering Facility: [facility] Address: [address] [place] [address] Performed By: #### 2 4321-2 ####[facility] LABORATORYCLIA [id number] [place] [address] [place] CO2 [Moles/Vol] 21 mmol/L Low 22-30 [facility] Comment on above: Order Comment: Speci men Type: BLOOD SPECIMENOrdering Facility: [facility] Address: [address] [place] [address] Performed By: #### 2 4321-2 ####[facility] LABORATORYCLIA [id number] [address] Creatinine [Mass/Vol] 2.17 mg/dL High 0.73-1.22 [facility] Comment on above: Order Comment: Lay barkley Type: BLOOD SPECIMENOrdering Facility: [facility] Address: [address] [place] [address] Performed By: #### 2 4321-2 ####[facility] LABORATORYCLIA [id number] [address] Creatinine and Glomerular filtration rate.predicted panel (S/P/Bld) 32 mL/min/1.73m??? Low >=60 [facility] Comment on above: Order Comment: Lay barkley Type: BLOOD SPECIMENOrdering Facility: [facility] Address: [address] [place] [address] Result Comment: Emely mated Glomerular Filtration Rate (eGFR) is calculated using the 2020 CKD-EPI creatinine equation. This equation utilizes serum creatinine, sex, and age as parameters. The creatinine assay has traceable calibration to isotope dilution-mass spectrometry. Refer to KDIGO guidelines for clinical interpretation. In patients with unstable renal function, e.g. those with acute kidney injury, the eGFR may not accurately reflect actual GFR. Performed By: #### 2 4321-2 ####[facility] LABORATORYCLIA [id number] [address] Glucose [Mass/Vol] 163 mg/dL High 74-99 [facility] Comment on above: Order Comment: Lay barkley Type: BLOOD SPECIMENOrdering Facility: [facility] Address: [address] [place] [address] Result Comment: The [place] Diabetes Association (ADA) provides guidance for cutoff values for fasting glucose and random glucose. The ADA defines fasting as no caloric intake for at least 8 hours. Fasting plasma glucose results between 100 to 125 mg/dL indicate increased risk for diabetes (prediabetes).Fasting plasma glucose results greater than or equal to 126 mg/dL meet the criteria for diagnosis of diabetes. In the absence of unequivocal hyperglycemia, results should be confirmed by repeat testing. In a patient with classic symptoms of hyperglycemia or hyperglycemic crisis, random plasma glucose results greater than or equal to 200 mg/dL meet the criteria for diagnosis of diabetes.Reference: Standards of Medical Care in Diabetes 2016, [place] [employer]. Diabetes Care. 2016.39(Suppl 1). Performed By: #### 2 4321-2 ####[facility] LABORATORYCLIA [id number] [address] [place] Potassium [Moles/Vol] 4.2 mmol/L Normal 3.7-5.1 [facility] Comment on above: Order Comment: Speci men Type: BLOOD SPECIMENOrdering Facility: [facility] Address: [address] [place] [address] Performed By: #### 2 4321-2 ####[facility] LABORATORYCLIA [id number] [address] [place] Sodium [Moles/Vol] 138 mmol/L Normal 136-144 [facility] Comment on above: Order Comment: Speci men Type: BLOOD SPECIMENOrdering Facility: [facility] Address: [address] [place] [address] Performed By: #### 2 4321-2 ####[facility] LABORATORYCLIA [id number] [address] [place] Urea nitrogen [Mass/Vol] 21 mg/dL Normal 9-24 [facility] Comment on above: Order Comment: Speci men Type: BLOOD SPECIMENOrdering Facility: [facility] Address: [address] [place] [address] Performed By: #### 2 4321-2 ####[facility] LABORATORYCLIA [id number] [address] [place] CASE MANAGEMon 12-10-2023 CASE MANAGEM Normal [facility] CONSULT PROGon 12-10-2023 CONSULT PROG [facility] CONSULT PROG [facility] CONSULT PROG [facility] NM INFECTION WB WBCon 2023 NM INFECTION WB WBC Normal [facility] THERAPY NTon 12-10-2023 THERAPY NT [facility] CBC W Auto Differential pane l (Bld)on 12-09-2023 Basophils (Bld) [#/Vol] 0.14 10*3/uL High <0.11 [facility] Comment on above: Order Comment: Speci men Type: BLOOD SPECIMENOrdering Facility: [facility] Address: [address] [place] [address] Performed By: #### 5 7021-8 ####[facility] LABORATORYCLIA [id number] [place] [address] [place] Basophils/100 WBC (Bld) 0.9 % Normal [facility] Comment on above: Order Comment: Speci men Type: BLOOD SPECIMENOrdering Facility: [facility] Address: [address] [place] [address] Performed By: #### 5 7021-8 ####[facility] LABORATORYCLIA [id number] [place] [address] [place] Differential cell count method Nom (Bld) Auto Normal [facility] Comment on above: Order Comment: Speci men Type: BLOOD SPECIMENOrdering Facility: [facility] Address: [address] [place] [address] Performed By: #### 5 7021-8 ####[facility] LABORATORYCLIA [id number] [place] [address] [place] Eosinophils (Bld) [#/Vol] 0.13 10*3/uL Normal <0.46 [facility] Comment on above: Order Comment: Speci men Type: BLOOD SPECIMENOrdering Facility: [facility] Address: [address] [place] [address] Performed By: #### 5 7021-8 ####[facility] LABORATORYCLIA [id number] [address] [place] Eosinophils/100 WBC (Bld) 0.8 % Normal [facility] Comment on above: Order Comment: Speci men Type: BLOOD SPECIMENOrdering Facility: [facility] Address: [address] [place] [address] Performed By: #### 5 7021-8 ####[facility] LABORATORYCLIA [id number] [place] [address] [place] Erythrocyte distribution width (RBC) [Ratio] 17.7 % High 11.5-15.0 [facility] Comment on above: Order Comment: Speci men Type: BLOOD SPECIMENOrdering Facility: [facility] Address: [address] [place] [address] Performed By: #### 5 7021-8 ####[facility] LABORATORYCLIA [id number] [address] Hematocrit (Bld) [Volume fraction] 29.7 % Low 39.0-51.0 [facility] Comment on above: Order Comment: Speci men Type: BLOOD SPECIMENOrdering Facility: [facility] Address: [address] [place] [address] Performed By: #### 5 7021-8 ####[facility] LABORATORYCLIA [id number] [address] [place] Hemoglobin (Bld) [Mass/Vol] 9.2 g/dL Low 13.0-17.0 [facility] Comment on above: Order Comment: Speci men Type: BLOOD SPECIMENOrdering Facility: [facility] Address: [address] [place] [address] Performed By: #### 5 7021-8 ####[facility] LABORATORYCLIA [id number] [address] [place] Immature granulocytes (Bld) [#/Vol] 0.32 10*3/uL High <0.10 [facility] Comment on above: Order Comment: Speci men Type: BLOOD SPECIMENOrdering Facility: [facility] Address: [address] [place] [address] Performed By: #### 5 7021-8 ####[facility] LABORATORYCLIA [id number] [address] [place] Immature granulocytes/100 WBC (Bld) 2.0 % Normal [facility] Comment on above: Order Comment: Speci men Type: BLOOD SPECIMENOrdering Facility: [facility] Address: [address] [place] [address] Performed By: #### 5 7021-8 ####[facility] LABORATORYCLIA [id number] [address] [place] Lymphocytes (Bld) [#/Vol] 1.92 10*3/uL Normal 1.00-4.00 [facility] Comment on above: Order Comment: Speci men Type: BLOOD SPECIMENOrdering Facility: [facility] Address: [address] [place] [address] Performed By: #### 5 7021-8 ####[facility] LABORATORYCLIA [id number] [address] Lymphocytes/100 WBC (Bld) 11.9 % Normal [facility] Comment on above: Order Comment: Speci men Type: BLOOD SPECIMENOrdering Facility: [facility] Address: [address] [place] [address] Performed By: #### 5 7021-8 ####[facility] LABORATORYCLIA [id number] [address] [place] MCH (RBC) [Entitic mass] 28.8 pg Normal 26.0-34.0 [facility] Comment on above: Order Comment: Speci men Type: BLOOD SPECIMENOrdering Facility: [facility] Address: [address] [place] [address] Performed By: #### 5 7021-8 ####[facility] LABORATORYCLIA [id number] [address] [place] MCHC (RBC) [Mass/Vol] 31.0 g/dL Normal 30.5-36.0 [facility] Comment on above: Order Comment: Speci men Type: BLOOD SPECIMENOrdering Facility: [facility] Address: [address] [place] [address] Performed By: #### 5 7021-8 ####[facility] LABORATORYCLIA [id number] [address] MCV (RBC) [Entitic vol] 93.1 fL Normal 80.0-100.0 [facility] Comment on above: Order Comment: Speci men Type: BLOOD SPECIMENOrdering Facility: [facility] Address: [address] [place] [address] Performed By: #### 5 7021-8 ####[facility] LABORATORYCLIA [id number] [address] [place] Monocytes (Bld) [#/Vol] 1.35 10*3/uL High <0.87 [facility] Comment on above: Order Comment: Speci men Type: BLOOD SPECIMENOrdering Facility: [facility] Address: [address] [place] [address] Performed By: #### 5 7021-8 ####[facility] LABORATORYCLIA [id number] [place] [address] [place] Monocytes/100 WBC (Bld) 8.3 % Normal [facility] Comment on above: Order Comment: Speci men Type: BLOOD SPECIMENOrdering Facility: [facility] Address: [address] [place] [address] Performed By: #### 5 7021-8 ####[facility] LABORATORYCLIA [id number] [place] [address] [place] Neutrophils (Bld) [#/Vol] 12.31 10*3/uL High 1.45-7.50 [facility] Comment on above: Order Comment: Speci men Type: BLOOD SPECIMENOrdering Facility: [facility] Address: [address] [place] [address] Performed By: #### 5 7021-8 ####[facility] LABORATORYCLIA [id number] [place] [address] [place] Neutrophils/100 WBC (Bld) 76.1 % Normal [facility] Comment on above: Order Comment: Speci men Type: BLOOD SPECIMENOrdering Facility: [facility] Address: [address] [place] [address] Performed By: #### 5 7021-8 ####[facility] LABORATORYCLIA [id number] [place] [address] [place] Nucleated RBC (Bld) [#/Vol] 10*3/uL Normal <0.01 [facility] Comment on above: Order Comment: Speci men Type: BLOOD SPECIMENOrdering Facility: [facility] Address: [address] [place] [address] Performed By: #### 5 7021-8 ####[facility] LABORATORYCLIA [id number] [place] [address] [place] Nucleated RBC/100 WBC (Bld) [Ratio] 0.0 /100 WBC Normal [facility] Comment on above: Order Comment: Speci men Type: BLOOD SPECIMENOrdering Facility: [facility] Address: [address] [place] [address] Performed By: #### 5 7021-8 ####[facility] LABORATORYCLIA [id number] [place] [id number] [place] Platelet mean volume (Bld) [Entitic vol] 9.5 fL Normal 9.0-12.7 [facility] Comment on above: Order Comment: Speci men Type: BLOOD SPECIMENOrdering Facility: [facility] Address: [address] [place], [place] [address] [address] Performed By: #### 5 7021-8 ####[facility] LABORATORYCLIA [id number] [place] [id number] [place] Platelets (Bld) [#/Vol] 300 10*3/uL Normal 150-400 [facility] Comment on above: Order Comment: Speci men Type: BLOOD SPECIMENOrdering Facility: [facility] Address: [address] [place] [address] Performed By: #### 5 7021-8 ####[facility]ORATORYCLIA [id number] [place] [address] [place] RBC (Bld) [#/Vol] 3.19 10*6/uL Low 4.20-6.00 [facility] Comment on above: Order Comment: Speci men Type: BLOOD SPECIMENOrdering Facility: [facility] Address: [address] [place], [place] [address] [address] Performed By: #### 5 7021-8 ####[facility] LABORATORYCLIA [id number] [place] [id number] [place] WBC (Bld) [#/Vol] 16.17 10*3/uL High 3.70-11.00 [facility] Comment on above: Order Comment: Speci men Type: BLOOD SPECIMENOrdering Facility: [facility] Address: [address] [place] [address] [place] [address] Performed By: #### 5 7021-8 ####[facility]ON[facility] LABORATORYCLIA [id number] [place] [address] [facility] [place] CONSULT PROGon 12-09-2023 CONSULT PROG Normal [facility] CONSULT PROG Normal [facility] Comprehensive metabolic 2000 panelon 12-09-2023 Albumin [Mass/Vol] 3.2 g/dL Low 3.9-4.9 [facility] Comment on above: Order Comment: Speci men Type: BLOOD SPECIMENOrdering Facility: [facility] Address: [address] [place] [address] Performed By: #### 2 4323-8 ####[facility] LABORATORYCLIA [id number] [place] [address] [place] ALP [Catalytic activity/Vol] 107 U/L Normal 38-113 [facility] Comment on above: Order Comment: Speci men Type: BLOOD SPECIMENOrdering Facility: [facility] Address: [address] [place] [address] Performed By: #### 2 4323-8 ####[facility] LABORATORYCLIA [id number] [address] [place] ALT [Catalytic activity/Vol] 12 U/L Normal 10-54 [facility] Comment on above: Order Comment: Speci men Type: BLOOD SPECIMENOrdering Facility: [facility] Address: [address] [place] [address] Performed By: #### 2 4323-8 ####NOON[facility] LABORATORYCLIA [id number] [address] STATES [facility] Anion gap [Moles/Vol] 14 mmol/L Normal 8-15 [facility] Comment on above: Order Comment: Speci men Type: BLOOD SPECIMENOrdering Facility: [facility] Address: [address] [place] [address] Performed By: #### 2 4323-8 ####NOONAN LABORATORYCLIA [id number] [address] [place] AST [Catalytic activity/Vol] 25 U/L Normal 14-40 [facility] Comment on above: Order Comment: Speci men Type: BLOOD SPECIMENOrdering Facility: [facility] Address: [address] [place] [address] Performed By: #### 2 4323-8 ####NOONAN LABORATORYCLIA [id number] [place] [address] [place] Bilirubin [Mass/Vol] 0.2 mg/dL Normal 0.2-1.3 [facility] Comment on above: Order Comment: Speci men Type: BLOOD SPECIMENOrdering Facility: [facility] Address: [address] [place] [address] Performed By: #### 2 4323-8 ####NOONAN LABORATORYCLIA [id number] [place] [address] [place] Calcium [Mass/Vol] 8.8 mg/dL Normal 8.5-10.2 [facility] Comment on above: Order Comment: Speci men Type: BLOOD SPECIMENOrdering Facility: [facility] Address: [address] [place] [address] Performed By: #### 2 4323-8 ####NOONAN LABORATORYCLIA [id number] [place] [address] [place] Chloride [Moles/Vol] 103 mmol/L Normal 98-107 [facility] Comment on above: Order Comment: Speci men Type: BLOOD SPECIMENOrdering Facility: [facility] Address: [address] [place] [address] Performed By: #### 2 4323-8 ####NOONAN LABORATORYCLIA [id number] [place] [address] [place] CO2 [Moles/Vol] 19 mmol/L Low 22-30 [facility] Comment on above: Order Comment: Speci men Type: BLOOD SPECIMENOrdering Facility: [facility] Address: [address] [place] [address] Performed By: #### 2 4323-8 ####NOONAN LABORATORYCLIA [id number] [place] [address] [place] Creatinine [Mass/Vol] 2.34 mg/dL High 0.73-1.22 [facility] Comment on above: Order Comment: Speci men Type: BLOOD SPECIMENOrdering Facility: [facility] Address: [address] [place] [address] Performed By: #### 2 4323-8 ####NOONAN LABORATORYCLIA [id number] [place] [address] [place] Creatinine and Glomerular filtration rate.predicted panel (S/P/Bld) 29 mL/min/1.73m??? Low >=60 [facility] Comment on above: Order Comment: Lay barkley Type: BLOOD SPECIMENOrdering Facility: [facility] Address: [address] [place] [address] Result Comment: Emely mated Glomerular Filtration Rate (eGFR) is calculated using the 2020 CKD-EPI creatinine equation. This equation utilizes serum creatinine, sex, and age as parameters. The creatinine assay has traceable calibration to isotope dilution-mass spectrometry. Refer to KDIGO guidelines for clinical interpretation. In patients with unstable renal function, e.g. those with acute kidney injury, the eGFR may not accurately reflect actual GFR. Performed By: #### 2 4323-8 ####NOONAN LABORATORYCLIA [id number] [place] [id number] [place] Glucose [Mass/Vol] 216 mg/dL High 74-99 [facility] Comment on above: Order Comment: Lay barkley Type: BLOOD SPECIMENOrdering Facility: [facility] Address: [address] [place] [address] Result Comment: The [place] Diabetes Association (ADA) provides guidance for cutoff values for fasting glucose and random glucose. The ADA defines fasting as no caloric intake for at least 8 hours. Fasting plasma glucose results between 100 to 125 mg/dL indicate increased risk for diabetes (prediabetes).Fasting plasma glucose results greater than or equal to 126 mg/dL meet the criteria for diagnosis of diabetes. In the absence of unequivocal hyperglycemia, results should be confirmed by repeat testing. In a patient with classic symptoms of hyperglycemia or hyperglycemic crisis, random plasma glucose results greater than or equal to 200 mg/dL meet the criteria for diagnosis of diabetes.Reference: Standards of Medical Care in Diabetes 2016, [place] [employer]. Diabetes Care. 2016.39(Suppl 1). Performed By: #### 2 4323-8 ####[facility] LABORATORYCLIA [id number] [place] [id number] [place] Potassium [Moles/Vol] 4.5 mmol/L Normal 3.7-5.1 [facility] Comment on above: Order Comment: Lay barkley Type: BLOOD SPECIMENOrdering Facility: [facility] Address: [address] [place] [id number] Performed By: #### 2 4323-8 ####NOONAN LABORATORYCLIA [id number] [address] [place] [facility] Protein [Mass/Vol] 5.9 g/dL Low 6.3-8.0 [facility] Comment on above: Order Comment: Speci men Type: BLOOD SPECIMENOrdering Facility: [facility] Address: [address] [place] [address] Performed By: #### 2 4323-8 ####NOONAN LABORATORYCLIA [id number] [place] [address] [place] Sodium [Moles/Vol] 136 mmol/L Normal 136-144 [facility] Comment on above: Order Comment: Speci men Type: BLOOD SPECIMENOrdering Facility: [facility] Address: [address] [place] [address] Performed By: #### 2 4323-8 ####NOONAN LABORATORYCLIA [id number] [address] [place] Urea nitrogen [Mass/Vol] 22 mg/dL Normal 9-24 [facility] Comment on above: Order Comment: Speci men Type: BLOOD SPECIMENOrdering Facility: [facility] Address: [address] [place] [address] Performed By: #### 2 4323-8 ####NOONAN LABORATORYCLIA [id number] [address] [place] [facility] Albumin [Mass/Vol] 3.5 g/dL Low 3.9-4.9 [facility] Comment on above: Order Comment: Speci men Type: BLOOD SPECIMENOrdering Facility: [facility] Address: [address] [place] [address] Performed By: #### 2 4323-8 ####NOONAN LABORATORYCLIA [id number] [address] [place] ALP [Catalytic activity/Vol] 125 U/L High 38-113 [facility] Comment on above: Order Comment: Speci men Type: BLOOD SPECIMENOrdering Facility: [facility] Address: [facility] [place] [address] Performed By: #### 2 4323-8 ####NOONAN LABORATORYCLIA [id number] [place] [address] [place] ALT [Catalytic activity/Vol] 13 U/L Normal 10-54 [facility] Comment on above: Order Comment: Speci men Type: BLOOD SPECIMENOrdering Facility: [facility] Address: [address] [place] [address] Performed By: #### 2 4323-8 ####NOONAN LABORATORYCLIA [id number] [place] [address] [place] Anion gap [Moles/Vol] 16 mmol/L High 8-15 [facility] Comment on above: Order Comment: Speci men Type: BLOOD SPECIMENOrdering Facility: [facility] Address: [address] [place] [address] Performed By: #### 2 4323-8 ####NOON[facility] LABORATORYCLIA [id number] [address] [place] AST [Catalytic activity/Vol] 23 U/L Normal 14-40 [facility] Comment on above: Order Comment: Speci men Type: BLOOD SPECIMENOrdering Facility: [facility] Address: [address] [place] [address] Performed By: #### 2 4323-8 ####NOONAN LABORATORYCLIA [id number] [place] [address] [place] Bilirubin [Mass/Vol] 0.3 mg/dL Normal 0.2-1.3 [facility] Comment on above: Order Comment: Speci men Type: BLOOD SPECIMENOrdering Facility: [facility] Address: [address] [place] [address] Performed By: #### 2 4323-8 ####NOONAN LABORATORYCLIA [id number] [address] [place] Calcium [Mass/Vol] 8.9 mg/dL Normal 8.5-10.2 [facility] Comment on above: Order Comment: Speci men Type: BLOOD SPECIMENOrdering Facility: [facility] Address: [address] [place] [address] Performed By: #### 2 4323-8 ####NOONAN LABORATORYCLIA [id number] [address] Chloride [Moles/Vol] 103 mmol/L Normal 98-107 [facility] Comment on above: Order Comment: Speci men Type: BLOOD SPECIMENOrdering Facility: [facility] Address: [address] [place] [address] Performed By: #### 2 4323-8 ####NOONAN LABORATORYCLIA [id number] [address] CO2 [Moles/Vol] 19 mmol/L Low 22-30 [facility] Comment on above: Order Comment: Speci men Type: BLOOD SPECIMENOrdering Facility: [facility] Address: [address] [place] [address] Performed By: #### 2 4323-8 ####NOON[facility] LABORATORYCLIA [id number] [address] Creatinine [Mass/Vol] 2.39 mg/dL High 0.73-1.22 [facility] Comment on above: Order Comment: Speci men Type: BLOOD SPECIMENOrdering Facility: [facility] Address: [address] [place] [address] Performed By: #### 2 4323-8 ####NOONAN LABORATORYCLIA [id number] [address] Creatinine and Glomerular filtration rate.predicted panel (S/P/Bld) 28 mL/min/1.73m??? Low >=60 [facility] Comment on above: Order Comment: Speci men Type: BLOOD SPECIMENOrdering Facility: [facility] Address: [address] [place] [address] Result Comment: Emely mated Glomerular Filtration Rate (eGFR) is calculated using the 2020 CKD-EPI creatinine equation. This equation utilizes serum creatinine, sex, and age as parameters. The creatinine assay has traceable calibration to isotope dilution-mass spectrometry. Refer to KDIGO guidelines for clinical interpretation. In patients with unstable renal function, e.g. those with acute kidney injury, the eGFR may not accurately reflect actual GFR. Performed By: #### 2 4323-8 ####NOONAN LABORATORYCLIA [id number] [place] [address] [place] Glucose [Mass/Vol] 125 mg/dL High 74-99 [facility] Comment on above: Order Comment: Lay barkley Type: BLOOD SPECIMENOrdering Facility: [facility] Address: [address] [place] [address] Result Comment: The [place] Diabetes Association (ADA) provides guidance for cutoff values for fasting glucose and random glucose. The ADA defines fasting as no caloric intake for at least 8 hours. Fasting plasma glucose results between 100 to 125 mg/dL indicate increased risk for diabetes (prediabetes).Fasting plasma glucose results greater than or equal to 126 mg/dL meet the criteria for diagnosis of diabetes. In the absence of unequivocal hyperglycemia, results should be confirmed by repeat testing. In a patient with classic symptoms of hyperglycemia or hyperglycemic crisis, random plasma glucose results greater than or equal to 200 mg/dL meet the criteria for diagnosis of diabetes.Reference: Standards of Medical Care in Diabetes 2016, [place] [employer]. Diabetes Care. 2016.39(Suppl 1). Performed By: #### 2 4323-8 ####NOONAN LABORATORYCLIA [id number] [place] [address] [place] Potassium [Moles/Vol] 4.3 mmol/L Normal 3.7-5.1 [facility] Comment on above: Order Comment: Lay barkley Type: BLOOD SPECIMENOrdering Facility: [facility] Address: [address] [place] [address] Performed By: #### 2 4323-8 ####NOONAN LABORATORYCLIA [id number] [place] [address] [place] Protein [Mass/Vol] 6.2 g/dL Low 6.3-8.0 [facility] Comment on above: Order Comment: Lay barkley Type: BLOOD SPECIMENOrdering Facility: [facility] Address: [address] [place], [place] [address] Performed By: #### 2 4323-8 ####NOONAN LABORATORYCLIA [id number] [place] [address] [place] Sodium [Moles/Vol] 138 mmol/L Normal 136-144 [facility] Comment on above: Order Comment: Calii men Type: BLOOD SPECIMENOrdering Facility: [facility] Address: [address] [place] [address] Performed By: #### 2 4323-8 ####NOONAN LABORATORYCLIA [id number] [place] [address] [place] Urea nitrogen [Mass/Vol] 21 mg/dL Normal 9-24 [facility] Comment on above: Order Comment: Speci men Type: BLOOD SPECIMENOrdering Facility: [facility] Address: [address] [place] [address] Performed By: #### 2 4323-8 ####NOONAN LABORATORYCLIA [id number] [place] [id number] [place] Creatinine Unsp time (U) [Ma ss/Vol]on 12-09-2023 Creatinine (U) [Mass/Vol] 55.5 mg/dL Normal 20.0-300.0 [facility] Comment on above: Order Comment: Speci men Type: URINE SPECIMENOrdering Facility: [facility] Address: [address] [place] [address] Performed By: #### 3 5674-1, 02783-0 ####[facility] LABCLIA [id number] [place] [address] [place] Sodium ?Tm Ur-sCncon 024 Sodium Unsp time (U) [Moles/Vol] 64 mmol/L Normal 14-216 [facility] Comment on above: Order Comment: Speci men Type: URINE SPECIMENOrdering Facility: [facility] Address: [address] [place] [address] Performed By: #### 3 5674-1, 52924-1 ####[facility] LABCLIA [id number] [place] [id number] [place] CASE MANAGEMon 12-08-2023 CASE MANAGEM Normal [facility] CBC panel Auto (Bld)on 12-07 Erythrocyte distribution width (RBC) [Ratio] 17.8 % High 11.5-15.0 [facility] Comment on above: Order Comment: Speci men Type: BLOOD SPECIMENOrdering Facility: [facility] Address: [address] [place] [address] Performed By: #### 5 8410-2 ####NOONAN LABORATORYCLIA [id number] [address] Hematocrit (Bld) [Volume fraction] 29.2 % Low 39.0-51.0 [facility] Comment on above: Order Comment: Speci men Type: BLOOD SPECIMENOrdering Facility: [facility] Address: [address] [place] [address] Performed By: #### 5 8410-2 ####NOON[facility] LABORATORYCLIA [id number] [address] Hemoglobin (Bld) [Mass/Vol] 9.2 g/dL Low 13.0-17.0 [facility] Comment on above: Order Comment: Speci men Type: BLOOD SPECIMENOrdering Facility: [facility] Address: [address] [place] [address] Performed By: #### 5 8410-2 ####[facility]ON[facility] LABORATORYCLIA [id number] [address] MCH (RBC) [Entitic mass] 28.8 pg Normal 26.0-34.0 [facility] Comment on above: Order Comment: Speci men Type: BLOOD SPECIMENOrdering Facility: [facility] Address: [address] [place] [address] Performed By: #### 5 8410-2 ####[facility] LABORATORYCLIA [id number] [address] STATES [facility] MCHC (RBC) [Mass/Vol] 31.5 g/dL Normal 30.5-36.0 [facility] Comment on above: Order Comment: Speci men Type: BLOOD SPECIMENOrdering Facility: [facility] Address: [address] [place] [address] Performed By: #### 5 8410-2 ####[facility] LABORATORYCLIA [id number] [address] MCV (RBC) [Entitic vol] 91.5 fL Normal 80.0-100.0 [facility] Comment on above: Order Comment: Speci men Type: BLOOD SPECIMENOrdering Facility: [facility] Address: [address] [place] [address] Performed By: #### 5 8410-2 ####[facility] LABORATORYCLIA [id number] [place] [address] [place] Nucleated RBC (Bld) [#/Vol] 0.02 10*3/uL High <0.01 [facility] Comment on above: Order Comment: Speci men Type: BLOOD SPECIMENOrdering Facility: [facility] Address: [address] [place] [address] Performed By: #### 5 8410-2 ####NOON[facility] LABORATORYCLIA [id number] [place] [address] [place] Platelet mean volume (Bld) [Entitic vol] 9.4 fL Normal 9.0-12.7 [facility] Comment on above: Order Comment: Speci men Type: BLOOD SPECIMENOrdering Facility: [facility] Address: [address] [place] [address] Performed By: #### 5 8410-2 ####NOON[facility] LABORATORYCLIA [id number] [place] [address] [place] Platelets (Bld) [#/Vol] 315 10*3/uL Normal 150-400 [facility] Comment on above: Order Comment: Speci men Type: BLOOD SPECIMENOrdering Facility: [facility] Address: [address] [place] [address] Performed By: #### 5 8410-2 ####[facility] LABORATORYCLIA [id number] [place] [address] [place] RBC (Bld) [#/Vol] 3.19 10*6/uL Low 4.20-6.00 [facility] Comment on above: Order Comment: Speci men Type: BLOOD SPECIMENOrdering Facility: [facility] Address: [address] [place] [address] Performed By: #### 5 8410-2 ####[facility] LABORATORYCLIA [id number] [place] [address] [place] WBC (Bld) [#/Vol] 20.15 10*3/uL High 3.70-11.00 [facility] Comment on above: Order Comment: Speci men Type: BLOOD SPECIMENOrdering Facility: [facility] Address: [address] [place] [address] Performed By: #### 5 8410-2 ####[place] LABORATORYCLIA [id number] [place] [address] [place] CONSULT PROGon 12-08-2023 CONSULT PRO Normal [facility] CONSULT PRO Normal [facility] CONSULT [facility] CONSULT [facility] Normal [facility] CONSULT [facility] Comprehensive metabolic 2000 panelon 12-08-2023 Albumin [Mass/Vol] 3.2 g/dL Low 3.9-4.9 [facility] Comment on above: Order Comment: Speci men Type: BLOOD SPECIMENOrdering Facility: [facility] Address: [address] [place] [address] Performed By: #### 2 4323-8, 27712-07, ####[facility] LABORATORYCLIA [id number] [place] [address] [place] ALP [Catalytic activity/Vol] 120 U/L High 38-113 [facility] Comment on above: Order Comment: Speci men Type: BLOOD SPECIMENOrdering Facility: [facility] Address: [address] [place] [address] Performed By: #### 2 4323-8, 27712-07, ####[facility] LABORATORYCLIA [id number] [place] [id number] [place] ALT [Catalytic activity/Vol] 13 U/L Normal 10-54 [facility] Comment on above: Order Comment: Speci men Type: BLOOD SPECIMENOrdering Facility: [facility] Address: [address] [place] [address] Performed By: #### 2 4323-8, 277-1, ####[facility] LABORATORYCLIA [id number] [place] [address] [place] Anion gap [Moles/Vol] 13 mmol/L Normal 8-15 [facility] Comment on above: Order Comment: Speci men Type: BLOOD SPECIMENOrdering Facility: [facility] Address: [address] [facility] [place] [id number] Performed By: #### 2 4323-8, 2776-06, ####[facility] LABORATORYCLIA [id number] [place] [address] [place] AST [Catalytic activity/Vol] 23 U/L Normal 14-40 [facility] Comment on above: Order Comment: Speci men Type: BLOOD SPECIMENOrdering Facility: [facility] Address: [address] [facility] [place] [address] Performed By: #### 2 4323-8, 2776-06, ####[facility] LABORATORYCLIA [id number] [place] [address] [place] Bilirubin [Mass/Vol] 0.2 mg/dL Normal 0.2-1.3 [facility] Comment on above: Order Comment: Speci men Type: BLOOD SPECIMENOrdering Facility: [facility] Address: [address] [place] [address] Performed By: #### 2 4323-8, 2776-06, ####[facility] LABORATORYCLIA [id number] [place] [address] [place] Calcium [Mass/Vol] 8.8 mg/dL Normal 8.5-10.2 [facility] Comment on above: Order Comment: Speci men Type: BLOOD SPECIMENOrdering Facility: [facility] Address: [address] [place] [address] Performed By: #### 2 4323-8, 2776-06, ####[facility] LABORATORYCLIA [id number] [place] [id number] [place] Chloride [Moles/Vol] 105 mmol/L Normal 98-107 [facility] Comment on above: Order Comment: Speci men Type: BLOOD SPECIMENOrdering Facility: [facility] Address: [address] [place] [address] Performed By: #### 2 4323-8, 2776-06, ####[facility] LABORATORYCLIA [id number] [place] [address] [place] CO2 [Moles/Vol] 19 mmol/L Low 22-30 [facility] Comment on above: Order Comment: Speci men Type: BLOOD SPECIMENOrdering Facility: [facility] Address: [address] [place] [address] Performed By: #### 2 4323-8, 2777-1, ####[facility] LABORATORYCLIA [id number] [place] [id number] [place] Creatinine [Mass/Vol] 2.20 mg/dL High 0.73-1.22 [facility] Comment on above: Order Comment: Speci men Type: BLOOD SPECIMENOrdering Facility: [facility] Address: [address] [place] [address] Performed By: #### 2 4323-8, 2777-1, ####[facility] LABORATORYCLIA [id number] [address] Creatinine and Glomerular filtration rate.predicted panel (S/P/Bld) 31 mL/min/1.73m??? Low >=60 [facility] Comment on above: Order Comment: Speci men Type: BLOOD SPECIMENOrdering Facility: [facility] Address: [address] [place] [address] Result Comment: Emely mated Glomerular Filtration Rate (eGFR) is calculated using the 2020 CKD-EPI creatinine equation. This equation utilizes serum creatinine, sex, and age as parameters. The creatinine assay has traceable calibration to isotope dilution-mass spectrometry. Refer to KDIGO guidelines for clinical interpretation. In patients with unstable renal function, e.g. those with acute kidney injury, the eGFR may not accurately reflect actual GFR. Performed By: #### 2 4323-8, 2777-1, ####[facility] LABORATORYCLIA [id number] [place] [id number] [place] Glucose [Mass/Vol] 114 mg/dL High 74-99 [facility] Comment on above: Order Comment: Speci men Type: BLOOD SPECIMENOrdering Facility: [facility] Address: [address] [place] [address] Result Comment: The [place] Diabetes [employer] (ADA) provides guidance for cutoff values for fasting glucose and random glucose. The ADA defines fasting as no caloric intake for at least 8 hours. Fasting plasma glucose results between 100 to 125 mg/dL indicate increased risk for diabetes (prediabetes).Fasting plasma glucose results greater than or equal to 126 mg/dL meet the criteria for diagnosis of diabetes. In the absence of unequivocal hyperglycemia, results should be confirmed by repeat testing. In a patient with classic symptoms of hyperglycemia or hyperglycemic crisis, random plasma glucose results greater than or equal to 200 mg/dL meet the criteria for diagnosis of diabetes.Reference: Standards of Medical Care in Diabetes 2016, [place] [employer]. Diabetes Care. 2016.39(Suppl 1). Performed By: #### 2 4323-8, 2776-06, ####[facility] LABORATORYCLIA [id number] [place] [address] [place] Potassium [Moles/Vol] 4.0 mmol/L Normal 3.7-5.1 [facility] Comment on above: Order Comment: Lay barkley Type: BLOOD SPECIMENOrdering Facility: [facility] Address: [address] [place] [address] Performed By: #### 2 4323-8, 2776-06, ####[facility]ON[facility] LABORATORYCLIA [id number] [place] [address] [place] Protein [Mass/Vol] 5.8 g/dL Low 6.3-8.0 [facility] Comment on above: Order Comment: Lay barkley Type: BLOOD SPECIMENOrdering Facility: [facility] Address: [address] [id number] Performed By: #### 2 4323-8, 2776-06, ####NOONAN LABORATORYCLIA [id number] [place] [address] [place] Sodium [Moles/Vol] 137 mmol/L Normal 136-144 [facility] Comment on above: Order Comment: Lay barkley Type: BLOOD SPECIMENOrdering Facility: [facility] Address: [address] [id number] Performed By: #### 2 4323-8, 2776-06, ####NOONAN LABORATORYCLIA [id number] [place] [address] [place] Urea nitrogen [Mass/Vol] 19 mg/dL Normal 9-24 [facility] Comment on above: Order Comment: Speci men Type: BLOOD SPECIMENOrdering Facility: [facility] Address: [address] [place] [address] Performed By: #### 2 4323-8, 27712-07, ####[facility] LABORATORYCLIA [id number] [place] [address] [place] Magnesium SerPl-mCncon 12-07 Magnesium [Mass/Vol] 1.7 mg/dL Normal 1.7-2.3 [facility] Comment on above: Order Comment: Speci men Type: BLOOD SPECIMENOrdering Facility: [facility] Address: [address] [place] [address] Performed By: #### 2 4323-8, 27712-07, ####[facility] LABORATORYCLIA [id number] [place] [address] [place] Phosphate SerPl-mCncon 12-07 Phosphate [Mass/Vol] 3.0 mg/dL Normal 2.7-4.8 [facility] Comment on above: Order Comment: Speci men Type: BLOOD SPECIMENOrdering Facility: [facility] Address: [address] [place] [address] Performed By: #### 2 4323-8, 27712-07, ####[facility] LABORATORYCLIA [id number] [place] [address] [place] THERAPY NTon 12-08-2023 THERAPY NT Normal [facility] Vancomycin Emmaus SerPl-mCncon 12-08-2023 Vancomycin random [Mass/Vol] 23.1 ug/mL High 10.0-20.0 [facility] Comment on above: Order Comment: Speci men Type: BLOOD SPECIMENOrdering Facility: [facility] Address: [address] [place] [address] Result Comment: Refe rence ranges and high/low indicator flags are provided as general guidelines only. The treating physician must determine appropriate target levels/dosing based on the specific clinical situation. Performed By: #### 4 091-5 ####NOONAN LABORATORYCLIA [id number] [address] CBC panel Auto (Bld)on 12-06 Erythrocyte distribution width (RBC) [Ratio] 17.7 % High 11.5-15.0 [facility] Comment on above: Order Comment: Speci men Type: BLOOD SPECIMENOrdering Facility: [facility] Address: [address] [place] [address] Performed By: #### 5 8410-2 ####NOONAN LABORATORYCLIA [id number] [address] Hematocrit (Bld) [Volume fraction] 28.9 % Low 39.0-51.0 [facility] Comment on above: Order Comment: Speci men Type: BLOOD SPECIMENOrdering Facility: [facility] Address: [address] [place] [address] Performed By: #### 5 8410-2 ####NOONAN LABORATORYCLIA [id number] [address] Hemoglobin (Bld) [Mass/Vol] 9.3 g/dL Low 13.0-17.0 [facility] Comment on above: Order Comment: Speci men Type: BLOOD SPECIMENOrdering Facility: [facility] Address: [address] [place] [address] Performed By: #### 5 8410-2 ####NOONAN LABORATORYCLIA [id number] [address] MCH (RBC) [Entitic mass] 29.2 pg Normal 26.0-34.0 [facility] Comment on above: Order Comment: Speci men Type: BLOOD SPECIMENOrdering Facility: [facility] Address: [facility] [place] [address] Performed By: #### 5 8410-2 ####NOONAN LABORATORYCLIA [id number] [address] MCHC (RBC) [Mass/Vol] 32.2 g/dL Normal 30.5-36.0 [facility] Comment on above: Order Comment: Speci men Type: BLOOD SPECIMENOrdering Facility: [facility] Address: [facility] [place] [address] Performed By: #### 5 8410-2 ####NOONAN LABORATORYCLIA [id number] [address] MCV (RBC) [Entitic vol] 90.6 fL Normal 80.0-100.0 [facility] Comment on above: Order Comment: Speci men Type: BLOOD SPECIMENOrdering Facility: [facility] Address: [address] [place] [address] Performed By: #### 5 8410-2 ####NOONAN LABORATORYCLIA [id number] [address] Nucleated RBC (Bld) [#/Vol] 0.03 10*3/uL High <0.01 [facility] Comment on above: Order Comment: Speci men Type: BLOOD SPECIMENOrdering Facility: [facility] Address: [address] [place] [address] Performed By: #### 5 8410-2 ####NOONAN LABORATORYCLIA [id number] [address] Platelet mean volume (Bld) [Entitic vol] 9.5 fL Normal 9.0-12.7 [facility] Comment on above: Order Comment: Speci men Type: BLOOD SPECIMENOrdering Facility: [facility] Address: [address] [place] [address] Performed By: #### 5 8410-2 ####NOONAN LABORATORYCLIA [id number] [address] Platelets (Bld) [#/Vol] 358 10*3/uL Normal 150-400 [facility] Comment on above: Order Comment: Speci men Type: BLOOD SPECIMENOrdering Facility: [facility] Address: [address] [place] [address] Performed By: #### 5 8410-2 ####NOONAN LABORATORYCLIA [id number] [place] [address] [place] RBC (Bld) [#/Vol] 3.19 10*6/uL Low 4.20-6.00 [facility] Comment on above: Order Comment: Speci men Type: BLOOD SPECIMENOrdering Facility: [facility] Address: [address] [place] [address] Performed By: #### 5 8410-2 ####[facility] LABORATORYCLIA [id number] [address] [place] WBC (Bld) [#/Vol] 24.26 10*3/uL High 3.70-11.00 [facility] Comment on above: Order Comment: Speci men Type: BLOOD SPECIMENOrdering Facility: [facility] Address: [address] [place] [address] Performed By: #### 5 8410-2 ####[facility] LABORATORYCLIA [id number] [address] CONSULT PROGon 12-07-2023 CONSULT PROG Normal [facility] CONSULT PROG Normal [facility] Comprehensive metabolic 2000 panelon 12-07-2023 Albumin [Mass/Vol] 3.3 g/dL Low 3.9-4.9 [facility] Comment on above: Order Comment: Speci men Type: BLOOD SPECIMENOrdering Facility: [facility] Address: [address] [place] [address] Performed By: #### 2 777-1, 64814-0, ####[facility] LABORATORYCLIA [id number] [place] [address] [place] ALP [Catalytic activity/Vol] 146 U/L High 38-113 [facility] Comment on above: Order Comment: Speci men Type: BLOOD SPECIMENOrdering Facility: [facility] Address: [address] [place] [address] Performed By: #### 2 777-1, 63202-0, ####[facility] LABORATORYCLIA [id number] [place] [address] [facility] [place] ALT [Catalytic activity/Vol] 14 U/L Normal 10-54 [facility] Comment on above: Order Comment: Speci men Type: BLOOD SPECIMENOrdering Facility: [facility] Address: [address] [place] [address] Performed By: #### 2 777-1, , ####NOONAN LABORATORYCLIA [id number] [place] [address] [place] Anion gap [Moles/Vol] 15 mmol/L Normal 8-15 [facility] Comment on above: Order Comment: Speci men Type: BLOOD SPECIMENOrdering Facility: [facility] Address: [address] [place] [address] Performed By: #### 2 777-1, , ####NOONAN LABORATORYCLIA [id number] [place] [address] [place] AST [Catalytic activity/Vol] 30 U/L Normal 14-40 [facility] Comment on above: Order Comment: Speci men Type: BLOOD SPECIMENOrdering Facility: [facility] Address: [facility] [place] [address] Performed By: #### 2 777-1, , ####NOONAN LABORATORYCLIA [id number] [place] [address] [place] Bilirubin [Mass/Vol] 0.3 mg/dL Normal 0.2-1.3 [facility] Comment on above: Order Comment: Speci men Type: BLOOD SPECIMENOrdering Facility: [facility] Address: [address] [place] [address] Performed By: #### 2 777-1, , ####NOONAN LABORATORYCLIA [id number] [place] [address] [place] Calcium [Mass/Vol] 8.9 mg/dL Normal 8.5-10.2 [facility] Comment on above: Order Comment: Speci men Type: BLOOD SPECIMENOrdering Facility: [facility] Address: [address] [place] [address] Performed By: #### 2 777-1, , ####NOONAN LABORATORYCLIA [id number] [address] [place] Chloride [Moles/Vol] 107 mmol/L Normal 98-107 [facility] Comment on above: Order Comment: Lay men Type: BLOOD SPECIMENOrdering Facility: [facility] Address: [address] [place] [address] Performed By: #### 2 777-1, 74183-6, ####NOONAN LABORATORYCLIA [id number] [place] [address] [place] CO2 [Moles/Vol] 18 mmol/L Low 22-30 [facility] Comment on above: Order Comment: Speci men Type: BLOOD SPECIMENOrdering Facility: [facility] Address: [address] [place] [address] Performed By: #### 2 777-1, , ####[facility] LABORATORYCLIA [id number] [place] [address] [place] Creatinine [Mass/Vol] 2.07 mg/dL High 0.73-1.22 [facility] Comment on above: Order Comment: Calii men Type: BLOOD SPECIMENOrdering Facility: [facility] Address: [address] [place] [address] Performed By: #### 2 777-1, , ####NOONAN LABORATORYCLIA [id number] [address] Creatinine and Glomerular filtration rate.predicted panel (S/P/Bld) 34 mL/min/1.73m??? Low >=60 [facility] Comment on above: Order Comment: Speci men Type: BLOOD SPECIMENOrdering Facility: [facility] Address: [address] [place] [address] Result Comment: Emely mated Glomerular Filtration Rate (eGFR) is calculated using the 2020 CKD-EPI creatinine equation. This equation utilizes serum creatinine, sex, and age as parameters. The creatinine assay has traceable calibration to isotope dilution-mass spectrometry. Refer to KDIGO guidelines for clinical interpretation. In patients with unstable renal function, e.g. those with acute kidney injury, the eGFR may not accurately reflect actual GFR. Performed By: #### 2 777-1, 09467-2, ####NOONAN LABORATORYCLIA [id number] [place] [address] [place] Glucose [Mass/Vol] 119 mg/dL High 74-99 [facility] Comment on above: Order Comment: Speci men Type: BLOOD SPECIMENOrdering Facility: [facility] Address: [address] [place] [address] Result Comment: The [place] Diabetes [employer] (ADA) provides guidance for cutoff values for fasting glucose and random glucose. The ADA defines fasting as no caloric intake for at least 8 hours. Fasting plasma glucose results between 100 to 125 mg/dL indicate increased risk for diabetes (prediabetes).Fasting plasma glucose results greater than or equal to 126 mg/dL meet the criteria for diagnosis of diabetes. In the absence of unequivocal hyperglycemia, results should be confirmed by repeat testing. In a patient with classic symptoms of hyperglycemia or hyperglycemic crisis, random plasma glucose results greater than or equal to 200 mg/dL meet the criteria for diagnosis of diabetes.Reference: Standards of Medical Care in Diabetes 2016, [place] [employer]. Diabetes Care. 2016.39(Suppl 1). Performed By: #### 2 777-1, , ####NOONAN LABORATORYCLIA [id number] [place] [id number] [place] Potassium [Moles/Vol] 4.0 mmol/L Normal 3.7-5.1 [facility] Comment on above: Order Comment: Speci men Type: BLOOD SPECIMENOrdering Facility: [facility] Address: [address] [place] [address] Performed By: #### 2 777-1, , ####NOONAN LABORATORYCLIA [id number] [place] [address] [place] Protein [Mass/Vol] 5.8 g/dL Low 6.3-8.0 [facility] Comment on above: Order Comment: Speci men Type: BLOOD SPECIMENOrdering Facility: [facility] Address: [address] [place], [place] [address] Performed By: #### 2 777-1, , ####NOONAN LABORATORYCLIA [id number] [place] [address] [place] Sodium [Moles/Vol] 140 mmol/L Normal 136-144 [facility] Comment on above: Order Comment: Speci men Type: BLOOD SPECIMENOrdering Facility: [facility] Address: [address] [place] [address] Performed By: #### 2 777-1, 42487-6, ####NOONAN LABORATORYCLIA [id number] [place] [id number] [place] Urea nitrogen [Mass/Vol] 17 mg/dL Normal 9-24 [facility] Comment on above: Order Comment: Speci men Type: BLOOD SPECIMENOrdering Facility: [facility] Address: [address] [place] [address] Performed By: #### 2 777-1, 96751-6, ####NOONAN LABORATORYCLIA [id number] [address] Magnesium SerPl-mCncon 12-06 Magnesium [Mass/Vol] 1.9 mg/dL Normal 1.7-2.3 [facility] Comment on above: Order Comment: Speci men Type: BLOOD SPECIMENOrdering Facility: [facility] Address: [address] [place] [address] Performed By: #### 2 777-1, 83134-4, ####NOONAN LABORATORYCLIA [id number] [place] [id number] [place] Phosphate SerPl-mCncon 12-06 Phosphate [Mass/Vol] 3.2 mg/dL Normal 2.7-4.8 [facility] Comment on above: Order Comment: Speci men Type: BLOOD SPECIMENOrdering Facility: [facility] Address: [address] [place] [address] Performed By: #### 2 777-1, 70418-4, ####NOONAN LABORATORYCLIA [id number] [place] [address] [place] CBC panel Auto (Bld)on 12-05 Erythrocyte distribution width (RBC) [Ratio] 17.7 % High 11.5-15.0 [facility] Comment on above: Order Comment: Speci men Type: BLOOD SPECIMENOrdering Facility: [facility] Address: [address] [place] [address] Performed By: #### 5 8410-2 ####NOONAN LABORATORYCLIA [id number] [address] [place] Hematocrit (Bld) [Volume fraction] 28.7 % Low 39.0-51.0 [facility] Comment on above: Order Comment: Speci men Type: BLOOD SPECIMENOrdering Facility: [facility] Address: [address] [place] [address] Performed By: #### 5 8410-2 ####NOONAN LABORATORYCLIA [id number] [address] [place] Hemoglobin (Bld) [Mass/Vol] 9.0 g/dL Low 13.0-17.0 [facility] Comment on above: Order Comment: Speci men Type: BLOOD SPECIMENOrdering Facility: [facility] Address: [address] [place] [address] Performed By: #### 5 8410-2 ####NOONAN LABORATORYCLIA [id number] [address] [place] MCH (RBC) [Entitic mass] 28.5 pg Normal 26.0-34.0 [facility] Comment on above: Order Comment: Speci men Type: BLOOD SPECIMENOrdering Facility: [facility] Address: [address] [place] [address] Performed By: #### 5 8410-2 ####NOONAN LABORATORYCLIA [id number] [address] [place] MCHC (RBC) [Mass/Vol] 31.4 g/dL Normal 30.5-36.0 [facility] Comment on above: Order Comment: Speci men Type: BLOOD SPECIMENOrdering Facility: [facility] Address: [address] [place] [address] Performed By: #### 5 8410-2 ####NOONAN LABORATORYCLIA [id number] [address] [place] MCV (RBC) [Entitic vol] 90.8 fL Normal 80.0-100.0 [facility] Comment on above: Order Comment: Speci men Type: BLOOD SPECIMENOrdering Facility: [facility] Address: [address] [place] [address] Performed By: #### 5 8410-2 ####NOONAN LABORATORYCLIA [id number] [place] [address] [place] Nucleated RBC (Bld) [#/Vol] 0.07 10*3/uL High <0.01 [facility] Comment on above: Order Comment: Speci men Type: BLOOD SPECIMENOrdering Facility: [facility] Address: [address] [place] [address] Performed By: #### 5 8410-2 ####NOONAN LABORATORYCLIA [id number] [address] [place] Platelet mean volume (Bld) [Entitic vol] 9.6 fL Normal 9.0-12.7 [facility] Comment on above: Order Comment: Speci men Type: BLOOD SPECIMENOrdering Facility: [facility] Address: [address] [place] [address] Performed By: #### 5 8410-2 ####NOONAN LABORATORYCLIA [id number] [address] [place] Platelets (Bld) [#/Vol] 376 10*3/uL Normal 150-400 [facility] Comment on above: Order Comment: Speci men Type: BLOOD SPECIMENOrdering Facility: [facility] Address: [address] [place] [address] Performed By: #### 5 8410-2 ####NOONAN LABORATORYCLIA [id number] [place] [address] [place] RBC (Bld) [#/Vol] 3.16 10*6/uL Low 4.20-6.00 [facility] Comment on above: Order Comment: Speci men Type: BLOOD SPECIMENOrdering Facility: [facility] Address: [address] [place] [address] Performed By: #### 5 8410-2 ####NOONAN LABORATORYCLIA [id number] [place] [address] [place] WBC (Bld) [#/Vol] 26.03 10*3/uL High 3.70-11.00 [facility] Comment on above: Order Comment: Speci men Type: BLOOD SPECIMENOrdering Facility: [facility] Address: [address] [place] [address] Performed By: #### 5 8410-2 ####[facility] LABORATORYCLIA [id number] [address] [place] CONSULT PROGon 12-06-2023 CONSULT PROG Normal [facility] CONSULT PROG Normal [facility] CONSULT PROG Normal [facility] Magnesium SerPl-mCncon 12-05 Magnesium [Mass/Vol] 2.0 mg/dL Normal 1.7-2.3 [facility] Comment on above: Order Comment: Speci men Type: BLOOD SPECIMENOrdering Facility: [facility] Address: [address] [place] [address] Performed By: #### 2 4362-6, ####[facility] LABORATORYCLIA [id number] [address] [place] Renal function 2000 panelon 12-06-2023 Albumin [Mass/Vol] 3.4 g/dL Low 3.9-4.9 [facility] Comment on above: Order Comment: Speci men Type: BLOOD SPECIMENOrdering Facility: [facility] Address: [address] [place], [place] [address] Performed By: #### 2 4362-6, ####NOONAN LABORATORYCLIA [id number] [place] [address] [facility] [place] Anion gap [Moles/Vol] 15 mmol/L Normal 8-15 [facility] Comment on above: Order Comment: Speci men Type: BLOOD SPECIMENOrdering Facility: [facility] Address: [address] [place] [address] [place] [address] Performed By: #### 2 4362-6, ####[facility] LABORATORYCLIA [id number] [place] [address] [place] Calcium [Mass/Vol] 8.6 mg/dL Normal 8.5-10.2 [facility] Comment on above: Order Comment: Speci men Type: BLOOD SPECIMENOrdering Facility: [facility] Address: [address] [place] [address] Performed By: #### 2 4362-6, ####NOONAN LABORATORYCLIA [id number] [place] [address] [place] Chloride [Moles/Vol] 108 mmol/L High 98-107 [facility] Comment on above: Order Comment: Speci men Type: BLOOD SPECIMENOrdering Facility: [facility] Address: [address] [place] [address] Performed By: #### 2 4362-6, ####NOONAN LABORATORYCLIA [id number] [place] [address] [place] CO2 [Moles/Vol] 16 mmol/L Low 22-30 [facility] Comment on above: Order Comment: Speci men Type: BLOOD SPECIMENOrdering Facility: [facility] Address: [address] [place] [address] Performed By: #### 2 4362-6, ####NOONAN LABORATORYCLIA [id number] [place] [address] [place] Creatinine [Mass/Vol] 2.19 mg/dL High 0.73-1.22 [facility] Comment on above: Order Comment: Speci men Type: BLOOD SPECIMENOrdering Facility: [facility] Address: [address] [place] [address] Performed By: #### 2 4362-6, ####NOONAN LABORATORYCLIA [id number] [address] [place] Creatinine and Glomerular filtration rate.predicted panel (S/P/Bld) 31 mL/min/1.73m??? Low >=60 [facility] Comment on above: Order Comment: Speci men Type: BLOOD SPECIMENOrdering Facility: [facility] Address: [address] [place] [address] Result Comment: Emely mated Glomerular Filtration Rate (eGFR) is calculated using the 2020 CKD-EPI creatinine equation. This equation utilizes serum creatinine, sex, and age as parameters. The creatinine assay has traceable calibration to isotope dilution-mass spectrometry. Refer to KDIGO guidelines for clinical interpretation. In patients with unstable renal function, e.g. those with acute kidney injury, the eGFR may not accurately reflect actual GFR. Performed By: #### 2 4362-6, ####NOONAN LABORATORYCLIA [id number] [place] [address] [place] Glucose [Mass/Vol] 116 mg/dL High 74-99 [facility] Comment on above: Order Comment: Lay barkley Type: BLOOD SPECIMENOrdering Facility: [facility] Address: [address] [place], [place] [id number] Result Comment: The [place] [employer] (ADA) provides guidance for cutoff values for fasting glucose and random glucose. The ADA defines fasting as no caloric intake for at least 8 hours. Fasting plasma glucose results between 100 to 125 mg/dL indicate increased risk for diabetes (prediabetes).Fasting plasma glucose results greater than or equal to 126 mg/dL meet the criteria for diagnosis of diabetes. In the absence of unequivocal hyperglycemia, results should be confirmed by repeat testing. In a patient with classic symptoms of hyperglycemia or hyperglycemic crisis, random plasma glucose results greater than or equal to 200 mg/dL meet the criteria for diagnosis of diabetes.Reference: Standards of Medical Care in Diabetes 2016, [place] [employer]. Diabetes Care. 2016.39(Suppl 1). Performed By: #### 2 43607-15, ####NOONAN LABORATORYCLIA [id number] [place] [address] [place] Phosphate [Mass/Vol] 3.1 mg/dL Normal 2.7-4.8 [facility] Comment on above: Order Comment: Lay barkley Type: BLOOD SPECIMENOrdering Facility: [facility] Address: [address] [place] [address] Performed By: #### 2 4366, ####NOONAN LABORATORYCLIA [id number] [place] [address] [place] Potassium [Moles/Vol] 4.1 mmol/L Normal 3.7-5.1 [facility] Comment on above: Order Comment: Speci men Type: BLOOD SPECIMENOrdering Facility: [facility] Address: [address] [place] [address] Performed By: #### 2 4362-6, 34285-6 ####NOONAN LABORATORYCLIA [id number] [place] [address] [place] Sodium [Moles/Vol] 139 mmol/L Normal 136-144 [facility] Comment on above: Order Comment: Speci men Type: BLOOD SPECIMENOrdering Facility: [facility] Address: [address] [place] [address] Performed By: #### 2 4362-6, ####NOONAN LABORATORYCLIA [id number] [place] [address] [place] Urea nitrogen [Mass/Vol] 14 mg/dL Normal 9-24 [facility] Comment on above: Order Comment: Speci men Type: BLOOD SPECIMENOrdering Facility: [facility] Address: [address] [place] [address] Performed By: #### 2 4362-6, ####NOONAN LABORATORYCLIA [id number] [place] [address] [facility] [place] Bacteria Ur Culton 4 Bacteria identified Cx Nom (U) CULTURE, URINE: No growth (<1,000 CFU/ml) Normal [facility] Comment on above: Performed By: #### 6 30-4 ####[facility] LABCLIA [id number] [facility] [id number] [address] [place] [place] CASE MANAGEMon 12-05-2023 CASE MANAGEM Normal [facility] CBC W Auto Differential pane l (Bld)on 12-05-2023 Anisocytosis Ql (Bld) Present Normal [facility] Comment on above: Order Comment: Speci men Type: BLOOD SPECIMENOrdering Facility: [facility] Address: [address] [place] [address] Performed By: #### 5 7021-8 ####NOONAN LABORATORYCLIA [id number] [place] [address] [place] Basophils (Bld) [#/Vol] 0.00 10*3/uL Normal <0.11 [facility] Comment on above: Order Comment: Speci men Type: BLOOD SPECIMENOrdering Facility: [facility] Address: [address] [place] [address] Performed By: #### 5 7021-8 ####NOONAN LABORATORYCLIA [id number] [address] [place] Basophils/100 WBC (Bld) 0.0 % Normal [facility] Comment on above: Order Comment: Speci men Type: BLOOD SPECIMENOrdering Facility: [facility] Address: [address] [place] [address] Performed By: #### 5 7021-8 ####NOONAN LABORATORYCLIA [id number] [address] Differential cell count method Nom (Bld) Manual Normal [facility] Comment on above: Order Comment: Speci men Type: BLOOD SPECIMENOrdering Facility: [facility] Address: [address] [place] [address] Performed By: #### 5 7021-8 ####NOONAN LABORATORYCLIA [id number] [place] [address] [place] Eosinophils (Bld) [#/Vol] 0.49 10*3/uL High <0.46 [facility] Comment on above: Order Comment: Speci men Type: BLOOD SPECIMENOrdering Facility: [facility] Address: [address] [place] [address] Performed By: #### 5 7021-8 ####NOONAN LABORATORYCLIA [id number] [address] Eosinophils/100 WBC (Bld) 2.0 % Normal [facility] Comment on above: Order Comment: Speci men Type: BLOOD SPECIMENOrdering Facility: [facility] Address: [address] [place] [address] Performed By: #### 5 7021-8 ####NOONAN LABORATORYCLIA [id number] [address] [place] Erythrocyte distribution width (RBC) [Ratio] 17.4 % High 11.5-15.0 [facility] Comment on above: Order Comment: Speci men Type: BLOOD SPECIMENOrdering Facility: [facility] Address: [address] [place] [address] Performed By: #### 5 7021-8 ####NOONAN LABORATORYCLIA [id number] [address] [place] Hematocrit (Bld) [Volume fraction] 26.7 % Low 39.0-51.0 [facility] Comment on above: Order Comment: Speci men Type: BLOOD SPECIMENOrdering Facility: [facility] Address: [address] [place] [address] Performed By: #### 5 7021-8 ####NOONAN LABORATORYCLIA [id number] [place] [address] [place] Hemoglobin (Bld) [Mass/Vol] 8.4 g/dL Low 13.0-17.0 [facility] Comment on above: Order Comment: Speci men Type: BLOOD SPECIMENOrdering Facility: [facility] Address: [address] [place] [address] Performed By: #### 5 7021-8 ####NOONAN LABORATORYCLIA [id number] [place] [address] [place] Lymphocytes (Bld) [#/Vol] 2.21 10*3/uL Normal 1.00-4.00 [facility] Comment on above: Order Comment: Speci men Type: BLOOD SPECIMENOrdering Facility: [facility] Address: [address] [place] [address] Performed By: #### 5 7021-8 ####NOONAN LABORATORYCLIA [id number] [address] [place] Lymphocytes/100 WBC (Bld) 9.0 % Normal [facility] Comment on above: Order Comment: Speci men Type: BLOOD SPECIMENOrdering Facility: [facility] Address: [address] [place] [address] Performed By: #### 5 7021-8 ####NOONAN LABORATORYCLIA [id number] [address] MCH (RBC) [Entitic mass] 28.5 pg Normal 26.0-34.0 [facility] Comment on above: Order Comment: Speci men Type: BLOOD SPECIMENOrdering Facility: [facility] Address: [address] [place] [address] Performed By: #### 5 7021-8 ####NOONAN LABORATORYCLIA [id number] [address] MCHC (RBC) [Mass/Vol] 31.5 g/dL Normal 30.5-36.0 [facility] Comment on above: Order Comment: Speci men Type: BLOOD SPECIMENOrdering Facility: [facility] Address: [address] [place] [address] Performed By: #### 5 7021-8 ####NOONAN LABORATORYCLIA [id number] [address] MCV (RBC) [Entitic vol] 90.5 fL Normal 80.0-100.0 [facility] Comment on above: Order Comment: Speci men Type: BLOOD SPECIMENOrdering Facility: [facility] Address: [address] [place] [address] Performed By: #### 5 7021-8 ####NOONAN LABORATORYCLIA [id number] [address] Metamyelocytes/100 WBC (Bld) 1.0 % Normal [facility] Comment on above: Order Comment: Speci men Type: BLOOD SPECIMENOrdering Facility: [facility] Address: [address] [place] [address] Performed By: #### 5 7021-8 ####NOONAN LABORATORYCLIA [id number] [address] Monocytes (Bld) [#/Vol] 1.47 10*3/uL High <0.87 [facility] Comment on above: Order Comment: Speci men Type: BLOOD SPECIMENOrdering Facility: [facility] Address: [address] [place] [address] Performed By: #### 5 7021-8 ####NOONAN LABORATORYCLIA [id number] [address] [place] Monocytes/100 WBC (Bld) 6.0 % Normal [facility] Comment on above: Order Comment: Speci men Type: BLOOD SPECIMENOrdering Facility: [facility] Address: [address] [place] [address] Performed By: #### 5 7021-8 ####NOONAN LABORATORYCLIA [id number] [place] [address] [facility] [place] MYELO% 5.0 % Normal [facility] Comment on above: Order Comment: Speci men Type: BLOOD SPECIMENOrdering Facility: [facility] Address: [address] [place] [address] Performed By: #### 5 7021-8 ####NOONAN LABORATORYCLIA [id number] [address] [place] Neutrophils (Bld) [#/Vol] 18.90 10*3/uL High 1.45-7.50 [facility] Comment on above: Order Comment: Speci men Type: BLOOD SPECIMENOrdering Facility: [facility] Address: [address] [place] [address] Performed By: #### 5 7021-8 ####NOONAN LABORATORYCLIA [id number] [address] [place] Neutrophils/100 WBC (Bld) 77.0 % Normal [facility] Comment on above: Order Comment: Speci men Type: BLOOD SPECIMENOrdering Facility: [facility] Address: [address] [place] [address] Performed By: #### 5 7021-8 ####NOONAN LABORATORYCLIA [id number] [place] [address] [place] Nucleated RBC (Bld) [#/Vol] 10*3/uL Normal <0.01 [facility] Comment on above: Order Comment: Speci men Type: BLOOD SPECIMENOrdering Facility: [facility] Address: [address] [place] [address] Performed By: #### 5 7021-8 ####NOONAN LABORATORYCLIA [id number] [place] [address] [place] Nucleated RBC/100 WBC (Bld) [Ratio] 0.0 /100 WBC Normal [facility] Comment on above: Order Comment: Speci men Type: BLOOD SPECIMENOrdering Facility: [facility] Address: [address] [facility] [place] [address] Performed By: #### 5 7021-8 ####NOONAN LABORATORYCLIA [id number] [place] [address] [place] Platelet mean volume (Bld) [Entitic vol] 9.5 fL Normal 9.0-12.7 [facility] Comment on above: Order Comment: Speci men Type: BLOOD SPECIMENOrdering Facility: [facility] Address: [address] [place] [address] Performed By: #### 5 7021-8 ####NOONAN LABORATORYCLIA [id number] [place] [address] [place] Platelets (Bld) [#/Vol] 327 10*3/uL Normal 150-400 [facility] Comment on above: Order Comment: Speci men Type: BLOOD SPECIMENOrdering Facility: [facility] Address: [address] [place] [address] Performed By: #### 5 7021-8 ####NOONAN LABORATORYCLIA [id number] [place] [address] [place] Platelets Estimate (Bld) [#/Vol] Adequate Normal [facility] Comment on above: Order Comment: Speci men Type: BLOOD SPECIMENOrdering Facility: [facility] Address: [address] [place] [address] Performed By: #### 5 7021-8 ####NOONAN LABORATORYCLIA [id number] [place] [address] [place] RBC (Bld) [#/Vol] 2.95 10*6/uL Low 4.20-6.00 [facility] Comment on above: Order Comment: Speci men Type: BLOOD SPECIMENOrdering Facility: [facility] Address: [address] [place] [address] Performed By: #### 5 7021-8 ####NOONAN LABORATORYCLIA [id number] [address] [place] RED CELL MORPH Reviewed: see result s of individual morphologies Normal [facility] Comment on above: Order Comment: Speci men Type: BLOOD SPECIMENOrdering Facility: [facility] Address: [address] [place] [address] Performed By: #### 5 7021-8 ####[place] LABORATORYCLIA [id number] [place] [address] [place] WBC (Bld) [#/Vol] 24.55 10*3/uL High 3.70-11.00 [facility] Comment on above: Order Comment: Speci men Type: BLOOD SPECIMENOrdering Facility: [facility] Address: [address] [place] [address] Performed By: #### 5 7021-8 ####[place] LABORATORYCLIA [id number] [address] CONSULT [facility] 12[facility]05[facility]20[facility] Comprehensive metabolic 2000 panelon 12-05-2023 Albumin [Mass/Vol] 3.0 g/dL Low 3.9-4.9 [facility] Comment on above: Order Comment: Speci men Type: BLOOD SPECIMENOrdering Facility: [facility] Address: [address] [place] [address] Performed By: #### 2 4323-8 ####[place] LABORATORYCLIA [id number] [address] [place] ALP [Catalytic activity/Vol] 126 U/L High 38-113 [facility] Comment on above: Order Comment: Speci men Type: BLOOD SPECIMENOrdering Facility: [facility] Address: [address] [place] [address] Performed By: #### 2 4323-8 ####NOONAN LABORATORYCLIA [id number] [address] [place] ALT [Catalytic activity/Vol] 16 U/L Normal 10-54 [facility] Comment on above: Order Comment: Speci men Type: BLOOD SPECIMENOrdering Facility: [facility] Address: [address] [place] [address] Performed By: #### 2 4323-8 ####NOONAN LABORATORYCLIA [id number] [place] [address] [place] Anion gap [Moles/Vol] 13 mmol/L Normal 8-15 [facility] Comment on above: Order Comment: Speci men Type: BLOOD SPECIMENOrdering Facility: [facility] Address: [address] [place] [address] Performed By: #### 2 4323-8 ####NOONAN LABORATORYCLIA [id number] [place] [address] [place] AST [Catalytic activity/Vol] 33 U/L Normal 14-40 [facility] Comment on above: Order Comment: Speci men Type: BLOOD SPECIMENOrdering Facility: [facility] Address: [address] [place] [address] Performed By: #### 2 4323-8 ####NOONAN LABORATORYCLIA [id number] [place] [address] [place] Bilirubin [Mass/Vol] 0.2 mg/dL Normal 0.2-1.3 [facility] Comment on above: Order Comment: Speci men Type: BLOOD SPECIMENOrdering Facility: [facility] Address: [address] [place] [address] Performed By: #### 2 4323-8 ####NOONAN LABORATORYCLIA [id number] [address] [place] Calcium [Mass/Vol] 8.5 mg/dL Normal 8.5-10.2 [facility] Comment on above: Order Comment: Speci men Type: BLOOD SPECIMENOrdering Facility: [facility] Address: [address] [place] [address] Performed By: #### 2 4323-8 ####NOONAN LABORATORYCLIA [id number] [place] [address] [place] Chloride [Moles/Vol] 110 mmol/L High 98-107 [facility] Comment on above: Order Comment: Speci men Type: BLOOD SPECIMENOrdering Facility: [facility] Address: [address] [place] [address] Performed By: #### 2 4323-8 ####NOONAN LABORATORYCLIA [id number] [place] [address] [place] CO2 [Moles/Vol] 16 mmol/L Low 22-30 [facility] Comment on above: Order Comment: Speci men Type: BLOOD SPECIMENOrdering Facility: [facility] Address: [address] [place] [address] Performed By: #### 2 4323-8 ####NOONAN LABORATORYCLIA [id number] [place] [id number] [place] Creatinine [Mass/Vol] 2.07 mg/dL High 0.73-1.22 [facility] Comment on above: Order Comment: Speci men Type: BLOOD SPECIMENOrdering Facility: [facility] Address: [address] [place] [address] Performed By: #### 2 4323-8 ####NOONAN LABORATORYCLIA [id number] [address] Creatinine and Glomerular filtration rate.predicted panel (S/P/Bld) 34 mL/min/1.73m??? Low >=60 [facility] Comment on above: Order Comment: Speci men Type: BLOOD SPECIMENOrdering Facility: [facility] Address: [address] [place] [address] Result Comment: Emely mated Glomerular Filtration Rate (eGFR) is calculated using the 2020 CKD-EPI creatinine equation. This equation utilizes serum creatinine, sex, and age as parameters. The creatinine assay has traceable calibration to isotope dilution-mass spectrometry. Refer to KDIGO guidelines for clinical interpretation. In patients with unstable renal function, e.g. those with acute kidney injury, the eGFR may not accurately reflect actual GFR. Performed By: #### 2 4323-8 ####NOONAN LABORATORYCLIA [id number] [place] [id number] [facility] Glucose [Mass/Vol] 89 mg/dL Normal 74-99 [facility] Comment on above: Order Comment: Calii rubia Type: BLOOD SPECIMENOrdering Facility: [facility] Address: [address] [place] [address] Result Comment: The [place] Diabetes Association (ADA) provides guidance for cutoff values for fasting glucose and random glucose. The ADA defines fasting as no caloric intake for at least 8 hours. Fasting plasma glucose results between 100 to 125 mg/dL indicate increased risk for diabetes (prediabetes).Fasting plasma glucose results greater than or equal to 126 mg/dL meet the criteria for diagnosis of diabetes. In the absence of unequivocal hyperglycemia, results should be confirmed by repeat testing. In a patient with classic symptoms of hyperglycemia or hyperglycemic crisis, random plasma glucose results greater than or equal to 200 mg/dL meet the criteria for diagnosis of diabetes.Reference: Standards of Medical Care in Diabetes 2016, [place] [employer]. Diabetes Care. 2016.39(Suppl 1). Performed By: #### 2 4323-8 ####NOONAN LABORATORYCLIA [id number] [place] [address] [place] Potassium [Moles/Vol] 3.7 mmol/L Normal 3.7-5.1 [facility] Comment on above: Order Comment: [place] Type: BLOOD SPECIMENOrdering Facility: [facility] Address: [address] [place] [address] Performed By: #### 2 4323-8 ####NOONAN LABORATORYCLIA [id number] [place] [address] [place] Protein [Mass/Vol] 5.1 g/dL Low 6.3-8.0 [facility] Comment on above: Order Comment: [place] Type: BLOOD SPECIMENOrdering Facility: [facility] Address: [address] [place] [address] Performed By: #### 2 4323-8 ####NOONAN LABORATORYCLIA [id number] [place] [address] [place] Sodium [Moles/Vol] 139 mmol/L Normal 136-144 [facility] Comment on above: Order Comment: [place] Type: BLOOD SPECIMENOrdering Facility: [facility] Address: [address] [place] [address] Performed By: #### 2 4323-8 ####NOONAN LABORATORYCLIA [id number] [place] [address] [place] Urea nitrogen [Mass/Vol] 15 mg/dL Normal 9-24 [facility] Comment on above: Order Comment: Speci men Type: BLOOD SPECIMENOrdering Facility: [facility] Address: [address] [place] [address] Performed By: #### 2 4323-8 ####NOONAN LABORATORYCLIA [id number] [place] [address] [place] Lactate (Bld) [Moles/Vol]on 12-05-2023 Lactate [Moles/Vol] 2.5 mmol/L High 0.5-2.2 [facility] Comment on above: Order Comment: Speci men Type: BLOOD SPECIMENOrdering Facility: [facility] Address: [address] [place] [address] Performed By: #### 3 2693-4 ####NOONAN LABORATORYCLIA [id number] [address] [place] URINALYSIS, REFLEX MICROSCOP ICon 12-05-2023 Bacteria LM.HPF (Urine sed) [#/Area] Few Abnormal None Seen [facility] Comment on above: Order Comment: Speci men Type: URINE SPECIMENOrdering Facility: [facility] Address: [address] [place] [address] Performed By: #### L [id number] ####NOONAN LABORATORYCLIA [id number] [address] [place] Bilirubin Ql (U) Negative Normal Negative [facility] Comment on above: Order Comment: Speci men Type: URINE SPECIMENOrdering Facility: [facility] Address: [address] [place] [address] Performed By: #### L [id number] ####NOONAN LABORATORYCLIA [id number] [address] Clarity (Unsp spec) Slightly Cloudy Abnormal Clear [facility] Comment on above: Order Comment: Speci men Type: URINE SPECIMENOrdering Facility: [facility] Address: [address] [place] [address] Performed By: #### L [id number] ####NOONAN LABORATORYCLIA [id number] [address] [place] Color (U) Yellow Normal Yellow [facility] Comment on above: Order Comment: Speci men Type: URINE SPECIMENOrdering Facility: [facility] Address: [address] [place] [address] Performed By: #### L [id number] ####NOONAN LABORATORYCLIA [id number] [address] Epithelial cells LM.HPF (Urine sed) [#/Area] Few Normal [facility] Comment on above: Order Comment: Speci men Type: URINE SPECIMENOrdering Facility: [facility] Address: [address] [place] [address] Performed By: #### L [id number] ####NOONAN LABORATORYCLIA [id number] [address] [place] Glucose Test strip (U) [Mass/Vol] Negative Normal Negative [facility] Comment on above: Order Comment: Speci men Type: URINE SPECIMENOrdering Facility: [facility] Address: [address] [place] [address] Performed By: #### L [id number] ####NOONAN LABORATORYCLIA [id number] [address] [place] Hemoglobin Ql (U) 3+ Abnormal Negative [facility] Comment on above: Order Comment: Speci men Type: URINE SPECIMENOrdering Facility: [facility] Address: [address] [place] [address] Performed By: #### L [id number] ####NOONAN LABORATORYCLIA [id number] [address] [place] Ketones Ql (U) Negative Normal Negative [facility] Comment on above: Order Comment: Speci men Type: URINE SPECIMENOrdering Facility: [facility] Address: [address] [place] [address] Performed By: #### L [id number] ####NOONAN LABORATORYCLIA [id number] [address] Leukocyte esterase Test strip Ql (U) Negative Normal Negative [facility] Comment on above: Order Comment: Speci men Type: URINE SPECIMENOrdering Facility: [facility] Address: [address] [place] [address] Performed By: #### L [id number] ####NOONAN LABORATORYCLIA [id number] [address] STATES [facility] Nitrite Ql (U) Negative Normal Negative [facility] Comment on above: Order Comment: Speci men Type: URINE SPECIMENOrdering Facility: [facility] Address: [address] [place] [address] Performed By: #### L [id number] ####NOON[facility] LABORATORYCLIA [id number] [address] pH (U) 6.0 [pH] Normal 5.0-8.0 [facility] Comment on above: Order Comment: Speci men Type: URINE SPECIMENOrdering Facility: [facility] Address: [address] [place] [address] Performed By: #### L [id number] ####[facility] LABORATORYCLIA [id number] [address] Protein (U) [Mass/Vol] Trace Abnormal Negative [facility] Comment on above: Order Comment: Speci men Type: URINE SPECIMENOrdering Facility: [facility] Address: [address] [place] [address] Performed By: #### L [id number] ####[facility] LABORATORYCLIA [id number] [address] RBC LM.HPF (Urine sed) [#/Area] /[HPF] Abnormal 0-3 /HPF [facility] Comment on above: Order Comment: Speci men Type: URINE SPECIMENOrdering Facility: [facility] Address: [address] [place] [address] Performed By: #### L [id number] ####[facility] LABORATORYCLIA [id number] [address] Specific gravity (U) [Rel density] 1.025 Normal 1.005-1.03 0 [facility] Comment on above: Order Comment: Speci men Type: URINE SPECIMENOrdering Facility: [facility] Address: [address] [place] [address] Performed By: #### L [id number] ####[facility] LABORATORYCLIA [id number] [address] Urobilinogen Ql (U) 0.2 EU/dL Normal 0.2-1.0 EU/dL [facility] Comment on above: Order Comment: Speci men Type: URINE SPECIMENOrdering Facility: [facility] Address: [address] [place] [address] Performed By: #### L [id number] ####[facility] LABORATORYCLIA [id number] [address] [place] [facility] WBC LM.HPF (Urine sed) [#/Area] 0-5 /HPF Normal 0-5 /HPF [facility] Comment on above: Order Comment: Speci men Type: URINE SPECIMENOrdering Facility: [facility] Address: [address] [place] [address] Performed By: #### L [id number] ####[facility] LABORATORYCLIA [id number] [address] CBC W Auto Differential pane l (Bld)on 12-04-2023 Anisocytosis Ql (Bld) Present Normal [facility] Comment on above: Order Comment: Speci men Type: BLOOD SPECIMENOrdering Facility: [facility] Address: [address] [place] [address] Performed By: #### 5 7021-8 ####[facility] LABORATORYCLIA [id number] [address] Basophils (Bld) [#/Vol] 0.00 10*3/uL Normal <0.11 [facility] Comment on above: Order Comment: Speci men Type: BLOOD SPECIMENOrdering Facility: [facility] Address: [address] [place] [address] Performed By: #### 5 7021-8 ####[facility] LABORATORYCLIA [id number] [address] Basophils/100 WBC (Bld) 0.0 % Normal [facility] Comment on above: Order Comment: Speci men Type: BLOOD SPECIMENOrdering Facility: [facility] Address: [address] [place] [address] Performed By: #### 5 7021-8 ####NOON[facility] LABORATORYCLIA [id number] [place] [address] [place] Dacrocytes LM Ql (Bld) Few Normal [facility] Comment on above: Order Comment: Speci men Type: BLOOD SPECIMENOrdering Facility: [facility] Address: [address] [place] [address] Performed By: #### 5 7021-8 ####NOON[facility] LABORATORYCLIA [id number] [place] [address] [place] Differential cell count method Nom (Bld) Manual Normal [facility] Comment on above: Order Comment: Speci men Type: BLOOD SPECIMENOrdering Facility: [facility] Address: [address] [place] [address] Performed By: #### 5 7021-8 ####NOONAN LABORATORYCLIA [id number] [place] [address] [place] Eosinophils (Bld) [#/Vol] 0.25 10*3/uL Normal <0.46 [facility] Comment on above: Order Comment: Speci men Type: BLOOD SPECIMENOrdering Facility: [facility] Address: [address] [place] [address] Performed By: #### 5 7021-8 ####NOONAN LABORATORYCLIA [id number] [place] [address] [place] Eosinophils/100 WBC (Bld) 1.0 % Normal [facility] Comment on above: Order Comment: Speci men Type: BLOOD SPECIMENOrdering Facility: [facility] Address: [address] [place] [address] Performed By: #### 5 7021-8 ####NOONAN LABORATORYCLIA [id number] [place] [address] [place] Erythrocyte distribution width (RBC) [Ratio] 17.2 % High 11.5-15.0 [facility] Comment on above: Order Comment: Speci men Type: BLOOD SPECIMENOrdering Facility: [facility] Address: [address] [place] [address] Performed By: #### 5 7021-8 ####NOONAN LABORATORYCLIA [id number] [address] [place] Hematocrit (Bld) [Volume fraction] 27.1 % Low 39.0-51.0 [facility] Comment on above: Order Comment: Speci men Type: BLOOD SPECIMENOrdering Facility: [facility] Address: [address] [place] [address] Performed By: #### 5 7021-8 ####NOONAN LABORATORYCLIA [id number] [place] [address] [place] Hemoglobin (Bld) [Mass/Vol] 8.4 g/dL Low 13.0-17.0 [facility] Comment on above: Order Comment: Speci men Type: BLOOD SPECIMENOrdering Facility: [facility] Address: [address] [place] [address] Performed By: #### 5 7021-8 ####NOONAN LABORATORYCLIA [id number] [place] [address] [place] Lymphocytes (Bld) [#/Vol] 2.24 10*3/uL Normal 1.00-4.00 [facility] Comment on above: Order Comment: Speci men Type: BLOOD SPECIMENOrdering Facility: [facility] Address: [address] [place] [address] Performed By: #### 5 7021-8 ####NOONAN LABORATORYCLIA [id number] [address] [place] Lymphocytes/100 WBC (Bld) 9.0 % Normal [facility] Comment on above: Order Comment: Speci men Type: BLOOD SPECIMENOrdering Facility: [facility] Address: [address] [place] [address] Performed By: #### 5 7021-8 ####NOONAN LABORATORYCLIA [id number] [address] [place] MCH (RBC) [Entitic mass] 27.9 pg Normal 26.0-34.0 [facility] Comment on above: Order Comment: Speci men Type: BLOOD SPECIMENOrdering Facility: [facility] Address: [address] [place] [address] Performed By: #### 5 7021-8 ####NOONAN LABORATORYCLIA [id number] [address] MCHC (RBC) [Mass/Vol] 31.0 g/dL Normal 30.5-36.0 [facility] Comment on above: Order Comment: Speci men Type: BLOOD SPECIMENOrdering Facility: [facility] Address: [address] [place] [address] Performed By: #### 5 7021-8 ####NOONAN LABORATORYCLIA [id number] [address] MCV (RBC) [Entitic vol] 90.0 fL Normal 80.0-100.0 [facility] Comment on above: Order Comment: Speci men Type: BLOOD SPECIMENOrdering Facility: [facility] Address: [address] [place] [address] Performed By: #### 5 7021-8 ####NOONAN LABORATORYCLIA [id number] [address] Metamyelocytes/100 WBC (Bld) 2.0 % Normal [facility] Comment on above: Order Comment: Speci men Type: BLOOD SPECIMENOrdering Facility: [facility] Address: [address] [place] [address] Performed By: #### 5 7021-8 ####NOONAN LABORATORYCLIA [id number] [address] Monocytes (Bld) [#/Vol] 1.99 10*3/uL High <0.87 [facility] Comment on above: Order Comment: Speci men Type: BLOOD SPECIMENOrdering Facility: [facility] Address: [address] [place] [address] Performed By: #### 5 7021-8 ####NOONAN LABORATORYCLIA [id number] [address] Monocytes/100 WBC (Bld) 8.0 % Normal [facility] Comment on above: Order Comment: Speci men Type: BLOOD SPECIMENOrdering Facility: [facility] Address: [address] [place] [address] Performed By: #### 5 7021-8 ####NOONAN LABORATORYCLIA [id number] [place] [address] [place] MYELO% 7.0 % Normal [facility] Comment on above: Order Comment: Speci men Type: BLOOD SPECIMENOrdering Facility: [facility] Address: [address] [place] [address] Performed By: #### 5 7021-8 ####NOONAN LABORATORYCLIA [id number] [place] [address] [place] Neutrophils (Bld) [#/Vol] 18.18 10*3/uL High 1.45-7.50 [facility] Comment on above: Order Comment: Speci men Type: BLOOD SPECIMENOrdering Facility: [facility] Address: [address] [place] [address] Performed By: #### 5 7021-8 ####NOONAN LABORATORYCLIA [id number] [place] [address] [place] Neutrophils/100 WBC (Bld) 73.0 % Normal [facility] Comment on above: Order Comment: Speci men Type: BLOOD SPECIMENOrdering Facility: [facility] Address: [address] [place] [address] Performed By: #### 5 7021-8 ####NOONAN LABORATORYCLIA [id number] [place] [address] [place] Nucleated RBC (Bld) [#/Vol] 10*3/uL Normal <0.01 [facility] Comment on above: Order Comment: Speci men Type: BLOOD SPECIMENOrdering Facility: [facility] Address: [address] [place] [address] Performed By: #### 5 7021-8 ####NOONAN LABORATORYCLIA [id number] [place] [address] [place] Nucleated RBC/100 WBC (Bld) [Ratio] 0.0 /100 WBC Normal [facility] Comment on above: Order Comment: Speci men Type: BLOOD SPECIMENOrdering Facility: [facility] Address: [address] [place] [address] Performed By: #### 5 7021-8 ####NOONAN LABORATORYCLIA [id number] [place] [address] [place] Ovalocytes LM Ql (Bld) Few Normal [facility] Comment on above: Order Comment: Speci men Type: BLOOD SPECIMENOrdering Facility: [facility] Address: [address] [place] [address] Performed By: #### 5 7021-8 ####NOONAN LABORATORYCLIA [id number] [place] [address] [place] Platelet mean volume (Bld) [Entitic vol] 9.7 fL Normal 9.0-12.7 [facility] Comment on above: Order Comment: Speci men Type: BLOOD SPECIMENOrdering Facility: [facility] Address: [address] [place] [address] Performed By: #### 5 7021-8 ####NOONAN LABORATORYCLIA [id number] [place] [address] [place] Platelets (Bld) [#/Vol] 338 10*3/uL Normal 150-400 [facility] Comment on above: Order Comment: Speci men Type: BLOOD SPECIMENOrdering Facility: [facility] Address: [address] [place] [address] Performed By: #### 5 7021-8 ####NOONAN LABORATORYCLIA [id number] [address] Platelets Estimate (Bld) [#/Vol] Adequate Normal [facility] Comment on above: Order Comment: Speci men Type: BLOOD SPECIMENOrdering Facility: [facility] Address: [address] [place] [address] Performed By: #### 5 7021-8 ####NOONAN LABORATORYCLIA [id number] [place] [address] [place] Polychromasia LM Ql (Bld) Slight Normal [facility] Comment on above: Order Comment: Speci men Type: BLOOD SPECIMENOrdering Facility: [facility] Address: [address] [place] [address] Performed By: #### 5 7021-8 ####NOONAN LABORATORYCLIA [id number] [place] [address] [place] RBC (Bld) [#/Vol] 3.01 10*6/uL Low 4.20-6.00 [facility] Comment on above: Order Comment: Speci men Type: BLOOD SPECIMENOrdering Facility: [facility] Address: [address] [place] [address] [place] [address] Performed By: #### 5 7021-8 ####NOONAN LABORATORYCLIA [id number] [address] [place] CELL MORPH Reviewed: see result s of individual morphologies Normal [facility] Comment on above: Order Comment: Speci men Type: BLOOD SPECIMENOrdering Facility: [facility] Address: [address] [place] [address] Performed By: #### 5 7021-8 ####NOONAN LABORATORYCLIA [id number] [address] [place] WBC (Bld) [#/Vol] 24.91 10*3/uL High 3.70-11.00 [facility] Comment on above: Order Comment: Speci men Type: BLOOD SPECIMENOrdering Facility: [facility] Address: [address] [place] [address] Performed By: #### 5 7021-8 ####NOONAN LABORATORYCLIA [id number] [address] WBC Left Shift Ql (Bld) Present [facility] Comment on above: Order Comment: Speci men Type: BLOOD SPECIMENOrdering Facility: [facility] Address: [address] [place] [address] Performed By: #### 5 7021-8 ####NOONAN LABORATORYCLIA [id number] [address] [place] CONSULT PROGon 12-04-2023 CONSULT PROG Normal [facility] CONSULT PROG Normal [facility] CONSULT PROG [facility] Comprehensive metabolic 2000 panelon 12-04-2023 Albumin [Mass/Vol] 2.9 g/dL Low 3.9-4.9 [facility] Comment on above: Order Comment: Speci men Type: BLOOD SPECIMENOrdering Facility: [facility] Address: [address] [place] [address] Performed By: #### 2 4323-8, ####NOONAN LABORATORYCLIA [id number] [place] [address] [place] ALP [Catalytic activity/Vol] 133 U/L High 38-113 [facility] Comment on above: Order Comment: Speci men Type: BLOOD SPECIMENOrdering Facility: [facility] Address: [address] [place] [address] Performed By: #### 2 4323-8, ####NOONAN LABORATORYCLIA [id number] [place] [address] [place] ALT [Catalytic activity/Vol] 18 U/L Normal 10-54 [facility] Comment on above: Order Comment: Speci men Type: BLOOD SPECIMENOrdering Facility: [facility] Address: [address] [place] [address] Performed By: #### 2 4323-8, ####NOONAN LABORATORYCLIA [id number] [place] [address] [place] Anion gap [Moles/Vol] 14 mmol/L Normal 8-15 [facility] Comment on above: Order Comment: Speci men Type: BLOOD SPECIMENOrdering Facility: [facility] Address: [address] [place] [address] [place] [address] Performed By: #### 2 4323-8, ####NOONAN LABORATORYCLIA [id number] [address] [place] AST [Catalytic activity/Vol] 32 U/L Normal 14-40 [facility] Comment on above: Order Comment: Speci men Type: BLOOD SPECIMENOrdering Facility: [facility] Address: [address] [place] [address] Performed By: #### 2 4323-8, ####NOONAN LABORATORYCLIA [id number] [place] [address] [place] Bilirubin [Mass/Vol] 0.2 mg/dL Normal 0.2-1.3 [facility] Comment on above: Order Comment: Speci men Type: BLOOD SPECIMENOrdering Facility: [facility] Address: [address] [place] [address] Performed By: #### 2 4323-8, ####NOONAN LABORATORYCLIA [id number] [place] [address] [place] Calcium [Mass/Vol] 8.5 mg/dL Normal 8.5-10.2 [facility] Comment on above: Order Comment: Speci men Type: BLOOD SPECIMENOrdering Facility: [facility] Address: [address] [place] [address] Performed By: #### 2 4328, ####NOONAN LABORATORYCLIA [id number] [place] [address] [place] Chloride [Moles/Vol] 111 mmol/L High 98-107 [facility] Comment on above: Order Comment: Speci men Type: BLOOD SPECIMENOrdering Facility: [facility] Address: [address] [place] [address] Performed By: #### 2 4328, ####NOONAN LABORATORYCLIA [id number] [place] [address] [place] CO2 [Moles/Vol] 15 mmol/L Low 22-30 [facility] Comment on above: Order Comment: Speci men Type: BLOOD SPECIMENOrdering Facility: [facility] Address: [address] [place] [address] Performed By: #### 2 43238, ####NOONAN LABORATORYCLIA [id number] [place] [address] [place] Creatinine [Mass/Vol] 2.12 mg/dL High 0.73-1.22 [facility] Comment on above: Order Comment: Speci men Type: BLOOD SPECIMENOrdering Facility: [facility] Address: [address] [place] [address] Performed By: #### 2 4323-8, ####NOONAN LABORATORYCLIA [id number] [place] [address] [place] Creatinine and Glomerular filtration rate.predicted panel (S/P/Bld) 33 mL/min/1.73m??? Low >=60 [facility] Comment on above: Order Comment: Lay barkley Type: BLOOD SPECIMENOrdering Facility: [facility] Address: [address] [place] [address] Result Comment: Emely mated Glomerular Filtration Rate (eGFR) is calculated using the 2020 CKD-EPI creatinine equation. This equation utilizes serum creatinine, sex, and age as parameters. The creatinine assay has traceable calibration to isotope dilution-mass spectrometry. Refer to KDIGO guidelines for clinical interpretation. In patients with unstable renal function, e.g. those with acute kidney injury, the eGFR may not accurately reflect actual GFR. Performed By: #### 2 4323-8, ####NOONAN LABORATORYCLIA [id number] [place] [id number] [place] Glucose [Mass/Vol] 89 mg/dL Normal 74-99 [facility] Comment on above: Order Comment: Lay barkley Type: BLOOD SPECIMENOrdering Facility: [facility] Address: [address] [place], [place] [address] [address] Result Comment: The [place] [employer] (ADA) provides guidance for cutoff values for fasting glucose and random glucose. The ADA defines fasting as no caloric intake for at least 8 hours. Fasting plasma glucose results between 100 to 125 mg/dL indicate increased risk for diabetes (prediabetes).Fasting plasma glucose results greater than or equal to 126 mg/dL meet the criteria for diagnosis of diabetes. In the absence of unequivocal hyperglycemia, results should be confirmed by repeat testing. In a patient with classic symptoms of hyperglycemia or hyperglycemic crisis, random plasma glucose results greater than or equal to 200 mg/dL meet the criteria for diagnosis of diabetes.Reference: Standards of Medical Care in Diabetes 2016, [place] [employer]. Diabetes Care. 2016.39(Suppl 1). Performed By: #### 2 4323-8, ####NOONAN LABORATORYCLIA [id number] [place] [address] [place] Potassium [Moles/Vol] 3.3 mmol/L Low 3.7-5.1 [facility] Comment on above: Order Comment: Lay barkley Type: BLOOD SPECIMENOrdering Facility: [facility] Address: [address] [place] [address] Performed By: #### 2 4323-8, ####NOONAN LABORATORYCLIA [id number] [place] [address] [place] Protein [Mass/Vol] 5.1 g/dL Low 6.3-8.0 [facility] Comment on above: Order Comment: Speci men Type: BLOOD SPECIMENOrdering Facility: [facility] Address: [address] [place] [address] Performed By: #### 2 4323-8, ####NOONAN LABORATORYCLIA [id number] [place] [id number] [place] Sodium [Moles/Vol] 140 mmol/L Normal 136-144 [facility] Comment on above: Order Comment: Speci men Type: BLOOD SPECIMENOrdering Facility: [facility] Address: [address] [place] [address] Performed By: #### 2 4323-8, ####NOONAN LABORATORYCLIA [id number] [place] [address] [place] Urea nitrogen [Mass/Vol] 16 mg/dL Normal 9-24 [facility] Comment on above: Order Comment: Speci men Type: BLOOD SPECIMENOrdering Facility: [facility] Address: [address] [place] [address] Performed By: #### 2 4323-8, ####NOONAN LABORATORYCLIA [id number] [place] [id number] [place] Lactate (Bld) [Moles/Vol]on 12-04-2023 Lactate [Moles/Vol] 2.5 mmol/L High 0.5-2.2 [facility] Comment on above: Order Comment: Speci men Type: BLOOD SPECIMENOrdering Facility: [facility] Address: [address] [place] [address] Performed By: #### 3 2693-4 ####NOONAN LABORATORYCLIA [id number] [place] [id number] [place] Magnesium SerPl-mCncon 12-03 Magnesium [Mass/Vol] 1.7 mg/dL Normal 1.7-2.3 [facility] Comment on above: Order Comment: Speci men Type: BLOOD SPECIMENOrdering Facility: [facility] Address: [address] [place] [address] Performed By: #### 2 4323-8, 98826-0 ####NOONAN LABORATORYCLIA [id number] [place] [address] [place] Vancomycin Emm[place] SerPl-mCncon 12-04-2023 Vancomycin random [Mass/Vol] 19.6 ug/mL Normal 10.0-20.0 [facility] Comment on above: Order Comment: Speci men Type: BLOOD SPECIMENOrdering Facility: [facility] Address: [address] [place] [address] Result Comment: Refe rence ranges and high/low indicator flags are provided as general guidelines only. The treating physician must determine appropriate target levels/dosing based on the specific clinical situation. Performed By: #### 4 091-5 ####NOONAN LABORATORYCLIA [id number] [place] [address] [place] ALLIED HEALTHon 12-03-2023 ALLIED HEALTH Normal [facility] CASE MANAGEMon 12-03-2023 CASE MANAGEM [facility] CBC W Auto Differential pane l (Bld)on 12-03-2023 Basophils (Bld) [#/Vol] 0.00 10*3/uL Normal <0.11 [facility] Comment on above: Order Comment: Speci men Type: BLOOD SPECIMENOrdering Facility: [facility] Address: [address] [place] [address] Performed By: #### 5 7021-8 ####NOONAN LABORATORYCLIA [id number] [address] [place] Basophils/100 WBC (Bld) 0.0 % Normal [facility] Comment on above: Order Comment: Speci men Type: BLOOD SPECIMENOrdering Facility: [facility] Address: [address] [place], [place] [address] [address] Performed By: #### 5 7021-8 ####NOONAN LABORATORYCLIA [id number] [address] [place] Differential cell count method Nom (Bld) Manual Normal [facility] Comment on above: Order Comment: Speci men Type: BLOOD SPECIMENOrdering Facility: [facility] Address: [address] [place] [address] Performed By: #### 5 7021-8 ####NOONAN LABORATORYCLIA [id number] [place] [address] [place] Eosinophils (Bld) [#/Vol] 0.00 10*3/uL Normal <0.46 [facility] Comment on above: Order Comment: Speci men Type: BLOOD SPECIMENOrdering Facility: [facility] Address: [address] [place] [address] Performed By: #### 5 7021-8 ####NOONAN LABORATORYCLIA [id number] [address] Eosinophils/100 WBC (Bld) 0.0 % Normal [facility] Comment on above: Order Comment: Speci men Type: BLOOD SPECIMENOrdering Facility: [facility] Address: [address] [place] [address] Performed By: #### 5 7021-8 ####NOONAN LABORATORYCLIA [id number] [address] [place] Erythrocyte distribution width (RBC) [Ratio] 16.7 % High 11.5-15.0 [facility] Comment on above: Order Comment: Speci men Type: BLOOD SPECIMENOrdering Facility: [facility] Address: [address] [place] [address] Performed By: #### 5 7021-8 ####NOONAN LABORATORYCLIA [id number] [address] [place] Hematocrit (Bld) [Volume fraction] 26.2 % Low 39.0-51.0 [facility] Comment on above: Order Comment: Speci men Type: BLOOD SPECIMENOrdering Facility: [facility] Address: [address] [place] [address] Performed By: #### 5 7021-8 ####NOONAN LABORATORYCLIA [id number] [address] [place] Hemoglobin (Bld) [Mass/Vol] 8.4 g/dL Low 13.0-17.0 [facility] Comment on above: Order Comment: Speci men Type: BLOOD SPECIMENOrdering Facility: [facility] Address: [address] [place] [address] Performed By: #### 5 7021-8 ####NOONAN LABORATORYCLIA [id number] [address] Lymphocytes (Bld) [#/Vol] 1.91 10*3/uL Normal 1.00-4.00 [facility] Comment on above: Order Comment: Speci men Type: BLOOD SPECIMENOrdering Facility: [facility] Address: [address] [place] [address] Performed By: #### 5 7021-8 ####NOONAN LABORATORYCLIA [id number] [address] Lymphocytes/100 WBC (Bld) 9.0 % Normal [facility] Comment on above: Order Comment: Speci men Type: BLOOD SPECIMENOrdering Facility: [facility] Address: [address] [place] [address] Performed By: #### 5 7021-8 ####NOONAN LABORATORYCLIA [id number] [address] MCH (RBC) [Entitic mass] 28.7 pg Normal 26.0-34.0 [facility] Comment on above: Order Comment: Speci men Type: BLOOD SPECIMENOrdering Facility: [facility] Address: [address] [place] [address] Performed By: #### 5 7021-8 ####NOONAN LABORATORYCLIA [id number] [address] MCHC (RBC) [Mass/Vol] 32.1 g/dL Normal 30.5-36.0 [facility] Comment on above: Order Comment: Speci men Type: BLOOD SPECIMENOrdering Facility: [facility] Address: [address] [place] [address] Performed By: #### 5 7021-8 ####NOONAN LABORATORYCLIA [id number] [address] [place] MCV (RBC) [Entitic vol] 89.4 fL Normal 80.0-100.0 [facility] Comment on above: Order Comment: Speci men Type: BLOOD SPECIMENOrdering Facility: [facility] Address: [address] [place] [address] Performed By: #### 5 7021-8 ####NOONAN LABORATORYCLIA [id number] [address] [place] Metamyelocytes/100 WBC (Bld) 4.0 % Normal [facility] Comment on above: Order Comment: Speci men Type: BLOOD SPECIMENOrdering Facility: [facility] Address: [address] [place] [address] Performed By: #### 5 7021-8 ####NOONAN LABORATORYCLIA [id number] [address] [place] Monocytes (Bld) [#/Vol] 2.33 10*3/uL High <0.87 [facility] Comment on above: Order Comment: Speci men Type: BLOOD SPECIMENOrdering Facility: [facility] Address: [address] [place] [address] Performed By: #### 5 7021-8 ####NOONAN LABORATORYCLIA [id number] [address] Monocytes/100 WBC (Bld) 11.0 % Normal [facility] Comment on above: Order Comment: Speci men Type: BLOOD SPECIMENOrdering Facility: [facility] Address: [address] [place] [address] Performed By: #### 5 7021-8 ####NOONAN LABORATORYCLIA [id number] [place] [address] [place] MYELO% 1.0 % Normal [facility] Comment on above: Order Comment: Speci men Type: BLOOD SPECIMENOrdering Facility: [facility] Address: [address] [place] [address] Performed By: #### 5 7021-8 ####NOONAN LABORATORYCLIA [id number] [place] [address] [facility] [place] Neutrophils (Bld) [#/Vol] 15.92 10*3/uL High 1.45-7.50 [facility] Comment on above: Order Comment: Speci men Type: BLOOD SPECIMENOrdering Facility: [facility] Address: [address] [place] [address] Performed By: #### 5 7021-8 ####NOONAN LABORATORYCLIA [id number] [address] [place] Neutrophils/100 WBC (Bld) 75.0 % Normal [facility] Comment on above: Order Comment: Speci men Type: BLOOD SPECIMENOrdering Facility: [facility] Address: [address] [place] [address] Performed By: #### 5 7021-8 ####NOONAN LABORATORYCLIA [id number] [address] [place] Nucleated RBC (Bld) [#/Vol] 10*3/uL Normal <0.01 [facility] Comment on above: Order Comment: Speci men Type: BLOOD SPECIMENOrdering Facility: [facility] Address: [address] [place] [address] Performed By: #### 5 7021-8 ####NOONAN LABORATORYCLIA [id number] [address] [place] Nucleated RBC/100 WBC (Bld) [Ratio] 0.0 /100 WBC Normal [facility] Comment on above: Order Comment: Speci men Type: BLOOD SPECIMENOrdering Facility: [facility] Address: [address] [place] [address] Performed By: #### 5 7021-8 ####NOON[facility] LABORATORYCLIA [id number] [address] [place] Platelet mean volume (Bld) [Entitic vol] 9.7 fL Normal 9.0-12.7 [facility] Comment on above: Order Comment: Speci men Type: BLOOD SPECIMENOrdering Facility: [facility] Address: [address] [place] [address] Performed By: #### 5 7021-8 ####[facility]ON[facility] LABORATORYCLIA [id number] [place] [address] [place] Platelets (Bld) [#/Vol] 277 10*3/uL Normal 150-400 [facility] Comment on above: Order Comment: Speci men Type: BLOOD SPECIMENOrdering Facility: [facility] Address: [facility] [place] [address] Performed By: #### 5 7021-8 ####NOONAN LABORATORYCLIA [id number] [place] [address] [place] Platelets Estimate (Bld) [#/Vol] Adequate Normal [facility] Comment on above: Order Comment: Speci men Type: BLOOD SPECIMENOrdering Facility: [facility] Address: [address] [place] [address] Performed By: #### 5 7021-8 ####NOONAN LABORATORYCLIA [id number] [place] [address] [place] Polychromasia LM Ql (Bld) Slight Normal [facility] Comment on above: Order Comment: Speci men Type: BLOOD SPECIMENOrdering Facility: [facility] Address: [address] [place] [address] Performed By: #### 5 7021-8 ####NOONAN LABORATORYCLIA [id number] [place] [address] [place] RBC (Bld) [#/Vol] 2.93 10*6/uL Low 4.20-6.00 [facility] Comment on above: Order Comment: Speci men Type: BLOOD SPECIMENOrdering Facility: [facility] Address: [address] [place] [address] Performed By: #### 5 7021-8 ####NOONAN LABORATORYCLIA [id number] [address] [place] RED CELL MORPH Reviewed: see result s of individual morphologies Normal [facility] Comment on above: Order Comment: Speci men Type: BLOOD SPECIMENOrdering Facility: [facility] Address: [address] [place] [address] Performed By: #### 5 7021-8 ####NOONAN LABORATORYCLIA [id number] [address] [place] TOXIC VACUOLES Present Normal [facility] Comment on above: Order Comment: Speci men Type: BLOOD SPECIMENOrdering Facility: [facility] Address: [address] [place], [place] [address] Performed By: #### 5 7021-8 ####NOONAN LABORATORYCLIA [id number] [address] [place] WBC (Bld) [#/Vol] 21.22 10*3/uL High 3.70-11.00 [facility] Comment on above: Order Comment: Speci men Type: BLOOD SPECIMENOrdering Facility: [facility] Address: [address] [place] [address] Performed By: #### 5 7021-8 ####NOONAN LABORATORYCLIA [id number] [address] WBC Left Shift Ql (Bld) Present Normal [facility] Comment on above: Order Comment: Speci men Type: BLOOD SPECIMENOrdering Facility: [facility] Address: [address] [place] [address] Performed By: #### 5 7021-8 ####NOONAN LABORATORYCLIA [id number] [address] [place] CONSULTon 12-03-2023 CONSULT Normal [facility] CONSULT PROGon 12-03-2023 CONSULT PROG [facility] CONSULT PROG [facility] CONSULT PROG [facility] CT ABD/PEL WO IVCONon 2023 CT ABD/PEL WO IVCON [facility] Comprehensive metabolic 2000 panelon 12-03-2023 Albumin [Mass/Vol] 2.8 g/dL Low 3.9-4.9 [facility] Comment on above: Order Comment: Speci men Type: BLOOD SPECIMENOrdering Facility: [facility] Address: [address] [place], [place] [address] Performed By: #### 1 9123-9, 30767-7 ####NOONAN LABORATORYCLIA [id number] [address] ALP [Catalytic activity/Vol] 296 U/L High 38-113 [facility] Comment on above: Order Comment: Speci men Type: BLOOD SPECIMENOrdering Facility: [facility] Address: [address] [place] [address] Performed By: #### 1 23-9, 49141-0 ####NOONAN LABORATORYCLIA [id number] [place] [address] [place] ALT [Catalytic activity/Vol] 18 U/L Normal 10-54 [facility] Comment on above: Order Comment: Speci men Type: BLOOD SPECIMENOrdering Facility: [facility] Address: [address] [place] [address] Performed By: #### 1 23-9, 69056-4 ####NOONAN LABORATORYCLIA [id number] [place] [address] [place] Anion gap [Moles/Vol] 15 mmol/L Normal 8-15 [facility] Comment on above: Order Comment: Speci men Type: BLOOD SPECIMENOrdering Facility: [facility] Address: [address] [place] [address] Performed By: #### 1 23-9, 11972-2 ####NOONAN LABORATORYCLIA [id number] [address] [place] AST [Catalytic activity/Vol] 36 U/L Normal 14-40 [facility] Comment on above: Order Comment: Speci men Type: BLOOD SPECIMENOrdering Facility: [facility] Address: [address] [place] [address] Performed By: #### 1 239, ####NOONAN LABORATORYCLIA [id number] [place] [address] [place] Bilirubin [Mass/Vol] 0.2 mg/dL Normal 0.2-1.3 [facility] Comment on above: Order Comment: Speci men Type: BLOOD SPECIMENOrdering Facility: [facility] Address: [address] [place] [address] Performed By: #### 1 23-9, 11266-9 ####NOONAN LABORATORYCLIA [id number] [address] [place] Calcium [Mass/Vol] 8.0 mg/dL Low 8.5-10.2 [facility] Comment on above: Order Comment: Speci men Type: BLOOD SPECIMENOrdering Facility: [facility] Address: [address] [place] [address] Performed By: #### 1 9123-9, 75570-2 ####NOONAN LABORATORYCLIA [id number] [place] [address] [place] Chloride [Moles/Vol] 111 mmol/L High 98-107 [facility] Comment on above: Order Comment: Speci men Type: BLOOD SPECIMENOrdering Facility: [facility] Address: [address] [place] [address] Performed By: #### 1 9123-9, 83327-4 ####NOONAN LABORATORYCLIA [id number] [place] [address] [place] CO2 [Moles/Vol] 16 mmol/L Low 22-30 [facility] Comment on above: Order Comment: Speci men Type: BLOOD SPECIMENOrdering Facility: [facility] Address: [address] [place] [address] Performed By: #### 1 23-9, 57282-5 ####NOONAN LABORATORYCLIA [id number] [place] [address] [place] Creatinine [Mass/Vol] 2.06 mg/dL High 0.73-1.22 [facility] Comment on above: Order Comment: Speci men Type: BLOOD SPECIMENOrdering Facility: [facility] Address: [address] [place] [address] Performed By: #### 1 9123-9, 46797-8 ####NOONAN LABORATORYCLIA [id number] [place] [address] [facility] [place] Creatinine and Glomerular filtration rate.predicted panel (S/P/Bld) 34 mL/min/1.73m??? Low >=60 [facility] Comment on above: Order Comment: Speci men Type: BLOOD SPECIMENOrdering Facility: [facility] Address: [address] [place] [address] Result Comment: Emely mated Glomerular Filtration Rate (eGFR) is calculated using the 2020 CKD-EPI creatinine equation. This equation utilizes serum creatinine, sex, and age as parameters. The creatinine assay has traceable calibration to isotope dilution-mass spectrometry. Refer to KDIGO guidelines for clinical interpretation. In patients with unstable renal function, e.g. those with acute kidney injury, the eGFR may not accurately reflect actual GFR. Performed By: #### 1 9123-9, 93508-8 ####NOONAN LABORATORYCLIA [id number] [place] [address] [place] Glucose [Mass/Vol] 141 mg/dL High 74-99 [facility] Comment on above: Order Comment: Lay barkley Type: BLOOD SPECIMENOrdering Facility: [facility] Address: [address] [place] [address] Result Comment: The [place] Diabetes [employer] (ADA) provides guidance for cutoff values for fasting glucose and random glucose. The ADA defines fasting as no caloric intake for at least 8 hours. Fasting plasma glucose results between 100 to 125 mg/dL indicate increased risk for diabetes (prediabetes).Fasting plasma glucose results greater than or equal to 126 mg/dL meet the criteria for diagnosis of diabetes. In the absence of unequivocal hyperglycemia, results should be confirmed by repeat testing. In a patient with classic symptoms of hyperglycemia or hyperglycemic crisis, random plasma glucose results greater than or equal to 200 mg/dL meet the criteria for diagnosis of diabetes.Reference: Standards of Medical Care in Diabetes 2016, [place] [employer]. Diabetes Care. 2016.39(Suppl 1). Performed By: #### 1 9123-9, 15479-3 ####NOONAN LABORATORYCLIA [id number] [place] [address] [place] Potassium [Moles/Vol] 3.6 mmol/L Low 3.7-5.1 [facility] Comment on above: Order Comment: Lay barkley Type: BLOOD SPECIMENOrdering Facility: [facility] Address: [address] [place] [address] Performed By: #### 1 9123-9, 24896-7 ####NOONAN LABORATORYCLIA [id number] [place] [id number] [place] Protein [Mass/Vol] 4.9 g/dL Low 6.3-8.0 [facility] Comment on above: Order Comment: Lay barkley Type: BLOOD SPECIMENOrdering Facility: [facility] Address: [address] [place] [address] Performed By: #### 1 9123-9, 29796-9 ####[place] LABORATORYCLIA [id number] [place] [address] [place] Sodium [Moles/Vol] 142 mmol/L Normal 136-144 [facility] Comment on above: Order Comment: Speci men Type: BLOOD SPECIMENOrdering Facility: [facility] Address: [address] [place] [address] Performed By: #### 1 9123-9, 66119-5 ####[place] LABORATORYCLIA [id number] [place] [address] [place] Urea nitrogen [Mass/Vol] 16 mg/dL Normal 9-24 [facility] Comment on above: Order Comment: Speci men Type: BLOOD SPECIMENOrdering Facility: [facility] Address: [address] [place] [address] Performed By: #### 1 9123-9, 00809-9 ####[place] LABORATORYCLIA [id number] [place] [address] [place] G lamblia+Cryptosp Ag Stl Ql IAon 12-03-2023 G. lamblia+Cryptospori dium sp Ag IA Ql (Stl) CRYPTOSPORIDIUM ANTIGEN BY EIA: Negative for Cryptosporidium by EIA. GIARDIA ANTIGEN BY EIA: Negative for Giardia lamblia by EIA. Normal [facility] Comment on above: Performed By: #### 1 1475-1, 65121-3 ####[facility] LABCLIA [id number] [place] [address] [place] Lactate (Bld) [Moles/Vol]on 12-03-2023 Lactate [Moles/Vol] 2.5 mmol/L High 0.5-2.2 [facility] Comment on above: Order Comment: Speci men Type: BLOOD SPECIMENOrdering Facility: [facility] Address: [address] [place] [address] Performed By: #### 3 2693-4 ####[place] LABORATORYCLIA [id number] [place] [address] [place] Magnesium SerPl-mCncon 12-02 Magnesium [Mass/Vol] 1.7 mg/dL Normal 1.7-2.3 [facility] Comment on above: Order Comment: Speci men Type: BLOOD SPECIMENOrdering Facility: [facility] Address: [address] [place] [address] Performed By: #### 1 9123-9, 51086-3 ####[place] LABORATORYCLIA [id number] [place] [address] [place] Microorganism Spec Culton Microorganism identified Cx Nom (Unsp spec) AERO CULT: No Aeromonas species isolated [facility] Comment on above: Performed By: #### 1 1475-1, 98319-9 ####[facility] LABCLIA [id number] [place] [address] [place] NUTRITIONon 12-03-2023 NUTRITION Normal [facility] O+P Spec Microon 12-03-2023 Ova and parasites identified LM Nom (Unsp spec) OVA AND PARASITE EXAM: No Parasites Seen [facility] Comment on above: Performed By: #### 6 73-4 ####[facility] LABCLIA [id number] [place] [address] [place] THERAPY NTon 12-03-2023 THERAPY NT Normal [facility] CBC panel Auto (Bld)on 12-01 Erythrocyte distribution width (RBC) [Ratio] 16.6 % High 11.5-15.0 [facility] Comment on above: Order Comment: Speci men Type: BLOOD SPECIMENOrdering Facility: [facility] Address: [address] [place] [address] Performed By: #### 5 8410-2 ####[place] LABORATORYCLIA [id number] [address] [place] Hematocrit (Bld) [Volume fraction] 29.3 % Low 39.0-51.0 [facility] Comment on above: Order Comment: Speci men Type: BLOOD SPECIMENOrdering Facility: [facility] Address: [address] [place] [address] Performed By: #### 5 8410-2 ####NOONAN LABORATORYCLIA [id number] [address] Hemoglobin (Bld) [Mass/Vol] 9.4 g/dL Low 13.0-17.0 [facility] Comment on above: Order Comment: Speci men Type: BLOOD SPECIMENOrdering Facility: [facility] Address: [address] [place] [address] Performed By: #### 5 8410-2 ####NOONAN LABORATORYCLIA [id number] [address] MCH (RBC) [Entitic mass] 28.9 pg Normal 26.0-34.0 [facility] Comment on above: Order Comment: Speci men Type: BLOOD SPECIMENOrdering Facility: [facility] Address: [address] [place] [address] Performed By: #### 5 8410-2 ####NOONAN LABORATORYCLIA [id number] [address] MCHC (RBC) [Mass/Vol] 32.1 g/dL Normal 30.5-36.0 [facility] Comment on above: Order Comment: Speci men Type: BLOOD SPECIMENOrdering Facility: [facility] Address: [address] [place] [address] Performed By: #### 5 8410-2 ####NOONAN LABORATORYCLIA [id number] [address] MCV (RBC) [Entitic vol] 90.2 fL Normal 80.0-100.0 [facility] Comment on above: Order Comment: Speci men Type: BLOOD SPECIMENOrdering Facility: [facility] Address: [address] [place] [address] Performed By: #### 5 8410-2 ####NOONAN LABORATORYCLIA [id number] [address] Nucleated RBC (Bld) [#/Vol] 0.26 10*3/uL High <0.01 [facility] Comment on above: Order Comment: Speci men Type: BLOOD SPECIMENOrdering Facility: [facility] Address: [address] [place], [place] [address] [id number] Performed By: #### 5 8410-2 ####NOONAN LABORATORYCLIA [id number] [place] [address] [place] Platelet mean volume (Bld) [Entitic vol] 9.4 fL Normal 9.0-12.7 [facility] Comment on above: Order Comment: Speci men Type: BLOOD SPECIMENOrdering Facility: [facility] Address: [address] [place] [address] Performed By: #### 5 8410-2 ####NOON[facility] LABORATORYCLIA [id number] [place] [address] [place] Platelets (Bld) [#/Vol] 283 10*3/uL Normal 150-400 [facility] Comment on above: Order Comment: Speci men Type: BLOOD SPECIMENOrdering Facility: [facility] Address: [facility] [place] [address] Performed By: #### 5 8410-2 ####NOON[facility] LABORATORYCLIA [id number] [place] [address] [place] RBC (Bld) [#/Vol] 3.25 10*6/uL Low 4.20-6.00 [facility] Comment on above: Order Comment: Speci men Type: BLOOD SPECIMENOrdering Facility: [facility] Address: [address] [place] [address] Performed By: #### 5 8410-2 ####NOONAN LABORATORYCLIA [id number] [place] [id number] [place] WBC (Bld) [#/Vol] 24.81 10*3/uL High 3.70-11.00 [facility] Comment on above: Order Comment: Speci men Type: BLOOD SPECIMENOrdering Facility: [facility] Address: [facility] [place] [address] Performed By: #### 5 8410-2 ####NOONAN LABORATORYCLIA [id number] [place] [id number] [facility] [place] CONSULT PROGon 12-02-2023 CONSULT PROG Normal [facility] CONSULT PROG Normal [facility] CONSULT PROG Normal [facility] Chloride ?Tm Ur-sCncon 12-01 Chloride Unsp time (U) [Moles/Vol] 127 mmol/L Normal 16-250 [facility] Comment on above: Order Comment: Speci men Type: URINE SPECIMENOrdering Facility: [facility] Address: [address] [place] [address] Performed By: #### 3 5677-4, 94196-5, 97150-1 ####[facility] LABCLIA [id number] [place] [address] [place] Magnesium SerPl-ncon 12-01 Magnesium [Mass/Vol] 1.9 mg/dL Normal 1.7-2.3 [facility] Comment on above: Order Comment: Speci men Type: BLOOD SPECIMENOrdering Facility: [facility] Address: [address] [place] [address] Performed By: #### 2 4362-6, 11660-0 ####[place] LABORATORYCLIA [id number] [place] [address] [place] Potassium ?Tm Ur-sCncon 11-08 Potassium Unsp time (U) [Moles/Vol] 37.1 mmol/L Normal 10.0-160.0 [facility] Comment on above: Order Comment: Speci men Type: URINE SPECIMENOrdering Facility: [facility] Address: [address] [place] [address] Performed By: #### 3 5677-4, 82920-5, 10587-7 ####[facility] LABCLIA [id number] [place] [id number] [place] Renal function 2000 panelon 12-02-2023 Albumin [Mass/Vol] 3.0 g/dL Low 3.9-4.9 [facility] Comment on above: Order Comment: Speci men Type: BLOOD SPECIMENOrdering Facility: [facility] Address: [address] [place] [address] Performed By: #### 2 4362-6, 92852-0 ####NOON[facility] LABORATORYCLIA [id number] [place] [address] [place] Anion gap [Moles/Vol] 16 mmol/L High 8-15 [facility] Comment on above: Order Comment: Speci men Type: BLOOD SPECIMENOrdering Facility: [facility] Address: [facility] [place] [address] Performed By: #### 2 4362-6, ####NOON[facility] LABORATORYCLIA [id number] [place] [address] [place] Calcium [Mass/Vol] 8.4 mg/dL Low 8.5-10.2 [facility] Comment on above: Order Comment: Speci men Type: BLOOD SPECIMENOrdering Facility: [facility] Address: [address] [place] [address] Performed By: #### 2 4362-6, ####NOON[facility] LABORATORYCLIA [id number] [place] [address] [place] Chloride [Moles/Vol] 112 mmol/L High 98-107 [facility] Comment on above: Order Comment: Speci men Type: BLOOD SPECIMENOrdering Facility: [facility] Address: [address] [place] [address] Performed By: #### 2 436-6, ####NOON[facility] LABORATORYCLIA [id number] [place] [address] [place] CO2 [Moles/Vol] 11 mmol/L Low 22-30 [facility] Comment on above: Order Comment: Speci men Type: BLOOD SPECIMENOrdering Facility: [facility] Address: [address] [place] [address] Performed By: #### 2 4362-6, ####NOON[facility] LABORATORYCLIA [id number] [place] [address] [place] Creatinine [Mass/Vol] 2.01 mg/dL High 0.73-1.22 [facility] Comment on above: Order Comment: Speci men Type: BLOOD SPECIMENOrdering Facility: [facility] Address: [address] [place] [address] Performed By: #### 2 43607-15, ####[facility] LABORATORYCLIA [id number] [place] [address] [place] Creatinine and Glomerular filtration rate.predicted panel (S/P/Bld) 35 mL/min/1.73m??? Low >=60 [facility] Comment on above: Order Comment: Lay barkley Type: BLOOD SPECIMENOrdering Facility: [facility] Address: [address] [place] [address] Result Comment: Emely mated Glomerular Filtration Rate (eGFR) is calculated using the 2020 CKD-EPI creatinine equation. This equation utilizes serum creatinine, sex, and age as parameters. The creatinine assay has traceable calibration to isotope dilution-mass spectrometry. Refer to KDIGO guidelines for clinical interpretation. In patients with unstable renal function, e.g. those with acute kidney injury, the eGFR may not accurately reflect actual GFR. Performed By: #### 2 43607-15, ####[facility] LABORATORYCLIA [id number] [place] [id number] [place] Glucose [Mass/Vol] 105 mg/dL High 74-99 [facility] Comment on above: Order Comment: Lay barkley Type: BLOOD SPECIMENOrdering Facility: [facility] Address: [address] [place] [address] Result Comment: The [place] Diabetes [employer] (ADA) provides guidance for cutoff values for fasting glucose and random glucose. The ADA defines fasting as no caloric intake for at least 8 hours. Fasting plasma glucose results between 100 to 125 mg/dL indicate increased risk for diabetes (prediabetes).Fasting plasma glucose results greater than or equal to 126 mg/dL meet the criteria for diagnosis of diabetes. In the absence of unequivocal hyperglycemia, results should be confirmed by repeat testing. In a patient with classic symptoms of hyperglycemia or hyperglycemic crisis, random plasma glucose results greater than or equal to 200 mg/dL meet the criteria for diagnosis of diabetes.Reference: Standards of Medical Care in Diabetes 2016, [place] [employer]. Diabetes Care. 2016.39(Suppl 1). Performed By: #### 2 4362-6, ####[place] LABORATORYCLIA [id number] [place] [address] [place] Phosphate [Mass/Vol] 3.9 mg/dL Normal 2.7-4.8 [facility] Comment on above: Order Comment: Speci men Type: BLOOD SPECIMENOrdering Facility: [facility] Address: [facility] [place] [address] Performed By: #### 2 4362-6, ####[facility] LABORATORYCLIA [id number] [place] [address] [place] Potassium [Moles/Vol] 3.7 mmol/L Normal 3.7-5.1 [facility] Comment on above: Order Comment: Speci men Type: BLOOD SPECIMENOrdering Facility: [facility] Address: [address] [place] [address] Performed By: #### 2 4362-6, ####[facility] LABORATORYCLIA [id number] [place] [address] [place] Sodium [Moles/Vol] 139 mmol/L Normal 136-144 [facility] Comment on above: Order Comment: Speci men Type: BLOOD SPECIMENOrdering Facility: [facility] Address: [address] [place] [address] Performed By: #### 2 4362-6, ####[facility] LABORATORYCLIA [id number] [place] [address] [place] Urea nitrogen [Mass/Vol] 18 mg/dL Normal 9-24 [facility] Comment on above: Order Comment: Speci men Type: BLOOD SPECIMENOrdering Facility: [facility] Address: [address] [place] [address] Performed By: #### 2 4362-6, ####[facility] LABORATORYCLIA [id number] [place] [id number] [place] SEPSIS LACTATEon 12-01-2023 Lactate [Moles/Vol] 3.2 mmol/L High 0.5-2.0 [facility] Comment on above: Order Comment: Speci men Type: BLOOD SPECIMENOrdering Facility: [facility] Address: [address] [place] [address] Performed By: #### S LACT ####[facility] LABORATORYCLIA [id number] [place] [address] [facility] [place] Sodium ?Tm Ur-sCncon 024 Sodium Unsp time (U) [Moles/Vol] 82 mmol/L Normal 14-216 [facility] Comment on above: Order Comment: Speci men Type: URINE SPECIMENOrdering Facility: [facility] Address: [address] [place] [address] Performed By: #### 3 5677-4, 78946-8, 31237-7 ####[facility] LABCLIA [id number] [facility] [id number] [address] [place] URINALYSIS, REFLEX MICROSCOP ICon 12-02-2023 Bacteria LM.HPF (Urine sed) [#/Area] Few Abnormal None Seen [facility] Comment on above: Order Comment: Speci men Type: URINE SPECIMENOrdering Facility: [facility] Address: [address] [place] [address] Performed By: #### L [id number] ####[place] LABORATORYCLIA [id number] [address] Bilirubin Ql (U) Negative Normal Negative [facility] Comment on above: Order Comment: Speci men Type: URINE SPECIMENOrdering Facility: [facility] Address: [address] [place] [address] Performed By: #### L [id number] ####[facility] LABORATORYCLIA [id number] [address] [place] Clarity (Unsp spec) Clear Normal Clear [facility] Comment on above: Order Comment: Speci men Type: URINE SPECIMENOrdering Facility: [facility] Address: [address] [place] [address] Performed By: #### L [id number] ####[facility] LABORATORYCLIA [id number] [address] Color (U) Yellow Normal Yellow [facility] Comment on above: Order Comment: Speci men Type: URINE SPECIMENOrdering Facility: [facility] Address: [address] [place] [address] Performed By: #### L [id number] ####[facility] LABORATORYCLIA [id number] [place] [address] [place] Epithelial cells LM.HPF (Urine sed) [#/Area] Few Normal [facility] Comment on above: Order Comment: Speci men Type: URINE SPECIMENOrdering Facility: [facility] Address: [address] [place] [address] Performed By: #### L [id number] ####[facility] LABORATORYCLIA [id number] [place] [address] [place] Glucose Test strip (U) [Mass/Vol] Negative Normal Negative [facility] Comment on above: Order Comment: Speci men Type: URINE SPECIMENOrdering Facility: [facility] Address: [address] [place] [address] Performed By: #### L [id number] ####[facility] LABORATORYCLIA [id number] [place] [address] [place] Hemoglobin Ql (U) 3+ Abnormal Negative [facility] Comment on above: Order Comment: Speci men Type: URINE SPECIMENOrdering Facility: [facility] Address: [address] [place] [address] Performed By: #### L [id number] ####[facility] LABORATORYCLIA [id number] [place] [address] [place] Ketones Ql (U) Negative Normal Negative [facility] Comment on above: Order Comment: Speci men Type: URINE SPECIMENOrdering Facility: [facility] Address: [address] [place] [address] Performed By: #### L [id number] ####[facility] LABORATORYCLIA [id number] [address] [place] Leukocyte esterase Test strip Ql (U) Negative Normal Negative [facility] Comment on above: Order Comment: Speci men Type: URINE SPECIMENOrdering Facility: [facility] Address: [address] [place] [address] Performed By: #### L [id number] ####[facility] LABORATORYCLIA [id number] [place] [address] [place] Nitrite Ql (U) Negative Normal Negative [facility] Comment on above: Order Comment: Speci men Type: URINE SPECIMENOrdering Facility: [facility] Address: [address] [place] [address] Performed By: #### L [id number] ####[facility] LABORATORYCLIA [id number] [address] pH (U) 6.0 [pH] Normal 5.0-8.0 [facility] Comment on above: Order Comment: Speci men Type: URINE SPECIMENOrdering Facility: [facility] Address: [address] [place] [address] Performed By: #### L [id number] ####[facility] LABORATORYCLIA [id number] [address] [place] Protein (U) [Mass/Vol] 1+ Abnormal Negative [facility] Comment on above: Order Comment: Speci men Type: URINE SPECIMENOrdering Facility: [facility] Address: [address] [place] [address] Performed By: #### L [id number] ####[facility] LABORATORYCLIA [id number] [place] [address] [place] [facility] RBC LM.HPF (Urine sed) [#/Area] /[HPF] Abnormal 0-3 /HPF [facility] Comment on above: Order Comment: Speci men Type: URINE SPECIMENOrdering Facility: [facility] Address: [address] [place] [address] Performed By: #### L [id number] ####[facility] LABORATORYCLIA [id number] [address] [place] Specific gravity (U) [Rel density] 1.025 Normal 1.005-1.03 0 [facility] Comment on above: Order Comment: Speci men Type: URINE SPECIMENOrdering Facility: [facility] Address: [address] [place] [address] Performed By: #### L [id number] ####[facility] LABORATORYCLIA [id number] [address] Urobilinogen Ql (U) 0.2 EU/dL Normal 0.2-1.0 EU/dL [facility] Comment on above: Order Comment: Speci men Type: URINE SPECIMENOrdering Facility: [facility] Address: [address] [place] [address] Performed By: #### L [id number] ####[facility] LABORATORYCLIA [id number] [address] WBC LM.HPF (Urine sed) [#/Area] 0-5 /HPF Normal 0-5 /HPF [facility] Comment on above: Order Comment: Speci men Type: URINE SPECIMENOrdering Facility: [facility] Address: [address] [place] [address] Performed By: #### L [id number] ####[facility] LABORATORYCLIA [id number] [address] [place] Vancomycin Emmaus SerPl-mCncon 12-02-2023 Vancomycin random [Mass/Vol] 18.5 ug/mL Normal 10.0-20.0 [facility] Comment on above: Order Comment: Speci men Type: BLOOD SPECIMENOrdering Facility: [facility] Address: [address] [place] [address] Result Comment: Refe rence ranges and high/low indicator flags are provided as general guidelines only. The treating physician must determine appropriate target levels/dosing based on the specific clinical situation. Performed By: #### 4 091-5 ####[facility] LABORATORYCLIA [id number] [address] [place] CASE MANAGEMon 12-01-2023 CASE MANAGEM Normal [facility] CBC panel Auto (Bld)on 11-30 Erythrocyte distribution width (RBC) [Ratio] 16.3 % High 11.5-15.0 [facility] Comment on above: Order Comment: Speci men Type: BLOOD SPECIMENOrdering Facility: [facility] Address: [address] [place] [address] Performed By: #### 5 8410-2 ####[facility] LABORATORYCLIA [id number] [address] [place] Hematocrit (Bld) [Volume fraction] 29.9 % Low 39.0-51.0 [facility] Comment on above: Order Comment: Speci men Type: BLOOD SPECIMENOrdering Facility: [facility] Address: [address] [place] [address] Performed By: #### 5 8410-2 ####[facility] LABORATORYCLIA [id number] [address] Hemoglobin (Bld) [Mass/Vol] 9.5 g/dL Low 13.0-17.0 [facility] Comment on above: Order Comment: Speci men Type: BLOOD SPECIMENOrdering Facility: [facility] Address: [address] [place] [address] Performed By: #### 5 8410-2 ####[facility] LABORATORYCLIA [id number] [address] MCH (RBC) [Entitic mass] 28.4 pg Normal 26.0-34.0 [facility] Comment on above: Order Comment: Speci men Type: BLOOD SPECIMENOrdering Facility: [facility] Address: [address] [place] [address] Performed By: #### 5 8410-2 ####[facility] LABORATORYCLIA [id number] [address] MCHC (RBC) [Mass/Vol] 31.8 g/dL Normal 30.5-36.0 [facility] Comment on above: Order Comment: Speci men Type: BLOOD SPECIMENOrdering Facility: [facility] Address: [address] [place] [address] Performed By: #### 5 8410-2 ####[facility] LABORATORYCLIA [id number] [address] MCV (RBC) [Entitic vol] 89.5 fL Normal 80.0-100.0 [facility] Comment on above: Order Comment: Speci men Type: BLOOD SPECIMENOrdering Facility: [facility] Address: [address] [place] [address] Performed By: #### 5 8410-2 ####[facility] LABORATORYCLIA [id number] [address] Nucleated RBC (Bld) [#/Vol] 0.08 10*3/uL High <0.01 [facility] Comment on above: Order Comment: Speci men Type: BLOOD SPECIMENOrdering Facility: [facility] Address: [address] [place] [address] Performed By: #### 5 8410-2 ####[facility] LABORATORYCLIA [id number] [address] Platelet mean volume (Bld) [Entitic vol] 9.8 fL Normal 9.0-12.7 [facility] Comment on above: Order Comment: Speci men Type: BLOOD SPECIMENOrdering Facility: [facility] Address: [address] [place] [address] Performed By: #### 5 8410-2 ####[facility] LABORATORYCLIA [id number] [address] [place] Platelets (Bld) [#/Vol] 237 10*3/uL Normal 150-400 [facility] Comment on above: Order Comment: Speci men Type: BLOOD SPECIMENOrdering Facility: [facility] Address: [address] [place] [address] Performed By: #### 5 8410-2 ####[facility] LABORATORYCLIA [id number] [address] [place] RBC (Bld) [#/Vol] 3.34 10*6/uL Low 4.20-6.00 [facility] Comment on above: Order Comment: Speci men Type: BLOOD SPECIMENOrdering Facility: [facility] Address: [address] [place] [address] Performed By: #### 5 8410-2 ####[facility] LABORATORYCLIA [id number] [address] [place] WBC (Bld) [#/Vol] 20.08 10*3/uL High 3.70-11.00 [facility] Comment on above: Order Comment: Speci men Type: BLOOD SPECIMENOrdering Facility: [facility] Address: [address] [place] [address] Performed By: #### 5 8410-2 ####[facility] LABORATORYCLIA [id number] [address] CONSULT PROGon 12-01-2023 CONSULT PROG Normal [facility] CONSULT PROG Normal [facility] CONSULT PROG Normal [facility] Magnesium SerPl-mCncon 11-30 Magnesium [Mass/Vol] 1.9 mg/dL Normal 1.7-2.3 [facility] Comment on above: Order Comment: Speci men Type: BLOOD SPECIMENOrdering Facility: [facility] Address: [address] [place] [address] Performed By: #### 2 4362-6, ####[facility] LABORATORYCLIA [id number] [place] [id number] [place] Renal function 2000 panelon 12-01-2023 Albumin [Mass/Vol] 2.8 g/dL Low 3.9-4.9 [facility] Comment on above: Order Comment: Speci men Type: BLOOD SPECIMENOrdering Facility: [facility] Address: [address] [place] [address] Performed By: #### 2 4362-6, ####NO[facility] LABORATORYCLIA [id number] [place] [address] [place] Anion gap [Moles/Vol] 14 mmol/L Normal 8-15 [facility] Comment on above: Order Comment: Speci men Type: BLOOD SPECIMENOrdering Facility: [facility] Address: [address] [place] [address] Performed By: #### 2 4362-6, ####[facility] LABORATORYCLIA [id number] [place] [id number] [place] Calcium [Mass/Vol] 7.9 mg/dL Low 8.5-10.2 [facility] Comment on above: Order Comment: Speci men Type: BLOOD SPECIMENOrdering Facility: [facility] Address: [address] [place] [address] Performed By: #### 2 4362-6, ####[facility] LABORATORYCLIA [id number] [place] [id number] [place] Chloride [Moles/Vol] 113 mmol/L High 98-107 [facility] Comment on above: Order Comment: Speci men Type: BLOOD SPECIMENOrdering Facility: [facility] Address: [address] [place] [address] Performed By: #### 2 4362-6, ####[facility] LABORATORYCLIA [id number] [place] [address] [place] CO2 [Moles/Vol] 12 mmol/L Low 22-30 [facility] Comment on above: Order Comment: Speci men Type: BLOOD SPECIMENOrdering Facility: [facility] Address: [address] [place] [address] Performed By: #### 2 43626, ####[facility] LABORATORYCLIA [id number] [place] [address] [place] Creatinine [Mass/Vol] 1.73 mg/dL High 0.73-1.22 [facility] Comment on above: Order Comment: Speci men Type: BLOOD SPECIMENOrdering Facility: [facility] Address: [address] [place] [address] Performed By: #### 2 43626, ####[facility] LABORATORYCLIA [id number] [place] [address] [place] Creatinine and Glomerular filtration rate.predicted panel (S/P/Bld) 42 mL/min/1.73m??? Low >=60 [facility] Comment on above: Order Comment: Speci men Type: BLOOD SPECIMENOrdering Facility: [facility] Address: [address] [place] [address] Result Comment: Emely mated Glomerular Filtration Rate (eGFR) is calculated using the 2020 CKD-EPI creatinine equation. This equation utilizes serum creatinine, sex, and age as parameters. The creatinine assay has traceable calibration to isotope dilution-mass spectrometry. Refer to KDIGO guidelines for clinical interpretation. In patients with unstable renal function, e.g. those with acute kidney injury, the eGFR may not accurately reflect actual GFR. Performed By: #### 2 4362-6, ####[facility] LABORATORYCLIA [id number] [place] [address] [place] Glucose [Mass/Vol] 107 mg/dL High 74-99 [facility] Comment on above: Order Comment: Lay [place] Type: BLOOD SPECIMENOrdering Facility: [facility] Address: [address] [place] [address] Result Comment: The [place] Diabetes Association (ADA) provides guidance for cutoff values for fasting glucose and random glucose. The ADA defines fasting as no caloric intake for at least 8 hours. Fasting plasma glucose results between 100 to 125 mg/dL indicate increased risk for diabetes (prediabetes).Fasting plasma glucose results greater than or equal to 126 mg/dL meet the criteria for diagnosis of diabetes. In the absence of unequivocal hyperglycemia, results should be confirmed by repeat testing. In a patient with classic symptoms of hyperglycemia or hyperglycemic crisis, random plasma glucose results greater than or equal to 200 mg/dL meet the criteria for diagnosis of diabetes.Reference: Standards of Medical Care in Diabetes 2016, [place] [employer] Association. Diabetes Care. 2016.39(Suppl 1). Performed By: #### 2 4362-6, ####NO[facility] LABORATORYCLIA [id number] [place] [address] [place] Phosphate [Mass/Vol] 2.1 mg/dL Low 2.7-4.8 [facility] Comment on above: Order Comment: Lay [place] Type: BLOOD SPECIMENOrdering Facility: [facility] Address: [address] [place] [address] Performed By: #### 2 4362-6, ####NOONAN LABORATORYCLIA [id number] [place] [address] [place] Potassium [Moles/Vol] 3.3 mmol/L Low 3.7-5.1 [facility] Comment on above: Order Comment: Lay [place] Type: BLOOD SPECIMENOrdering Facility: [facility] Address: [address] [place] [address] Performed By: #### 2 4362-6, ####NOON[facility] LABORATORYCLIA [id number] [place] [address] [place] Sodium [Moles/Vol] 139 mmol/L Normal 136-144 [facility] Comment on above: Order Comment: Calii men Type: BLOOD SPECIMENOrdering Facility: [facility] Address: [address] [id number] Performed By: #### 2 4362-6, ####NOONAN LABORATORYCLIA [id number] [place] [id number] [place] Urea nitrogen [Mass/Vol] 18 mg/dL Normal 9-24 [facility] Comment on above: Order Comment: Speci men Type: BLOOD SPECIMENOrdering Facility: [facility] Address: [facility] [place] [address] Performed By: #### 2 4362-6, ####[facility]ON[facility] LABORATORYCLIA [id number] [place] [address] [place] THERAPY NTon 12-01-2023 THERAPY NT Normal [facility] Vancomycin Emmaus SerPl-mCncon 12-01-2023 Vancomycin random [Mass/Vol] 17.4 ug/mL Normal 10.0-20.0 [facility] Comment on above: Order Comment: Speci men Type: BLOOD SPECIMENOrdering Facility: [facility] Address: [address] [place], [place] [address] [address] Result Comment: Refe rence ranges and high/low indicator flags are provided as general guidelines only. The treating physician must determine appropriate target levels/dosing based on the specific clinical situation. Performed By: #### 4 091-5 ####[facility] LABORATORYCLIA [id number] [place] [address] [place] Basic metabolic 2000 panelon 11-30-2023 Anion gap [Moles/Vol] 14 mmol/L Normal 8-15 [facility] Comment on above: Order Comment: Speci men Type: BLOOD SPECIMENOrdering Facility: [facility] Address: [address] [place] [address] Performed By: #### 2 4321-2 ####NOONAN LABORATORYCLIA [id number] [place] [address] [place] Calcium [Mass/Vol] 8.1 mg/dL Low 8.5-10.2 [facility] Comment on above: Order Comment: Speci men Type: BLOOD SPECIMENOrdering Facility: [facility] Address: [facility] [place] [address] Performed By: #### 2 4321-2 ####NOON[facility] LABORATORYCLIA [id number] [address] Chloride [Moles/Vol] 109 mmol/L High 98-107 [facility] Comment on above: Order Comment: Speci men Type: BLOOD SPECIMENOrdering Facility: [facility] Address: [address] [place] [address] Performed By: #### 2 4321-2 ####NOON[facility] LABORATORYCLIA [id number] [address] [place] CO2 [Moles/Vol] 13 mmol/L Low 22-30 [facility] Comment on above: Order Comment: Speci men Type: BLOOD SPECIMENOrdering Facility: [facility] Address: [address] [place] [address] Performed By: #### 2 4321-2 ####NOON[facility] LABORATORYCLIA [id number] [address] Creatinine [Mass/Vol] 1.78 mg/dL High 0.73-1.22 [facility] Comment on above: Order Comment: Speci men Type: BLOOD SPECIMENOrdering Facility: [facility] Address: [address] [place] [address] Performed By: #### 2 4321-2 ####NOONAN LABORATORYCLIA [id number] [address] Creatinine and Glomerular filtration rate.predicted panel (S/P/Bld) 40 mL/min/1.73m??? Low >=60 [facility] Comment on above: Order Comment: Speci men Type: BLOOD SPECIMENOrdering Facility: [facility] Address: [address] [place] [address] Result Comment: Emely mated Glomerular Filtration Rate (eGFR) is calculated using the 2020 CKD-EPI creatinine equation. This equation utilizes serum creatinine, sex, and age as parameters. The creatinine assay has traceable calibration to isotope dilution-mass spectrometry. Refer to KDIGO guidelines for clinical interpretation. In patients with unstable renal function, e.g. those with acute kidney injury, the eGFR may not accurately reflect actual GFR. Performed By: #### 2 4321-2 ####NOONAN LABORATORYCLIA [id number] [place] [address] [place] Glucose [Mass/Vol] 168 mg/dL High 74-99 [facility] Comment on above: Order Comment: Speci men Type: BLOOD SPECIMENOrdering Facility: [facility] Address: [address] [place] [address] Result Comment: The [place] Diabetes Association (ADA) provides guidance for cutoff values for fasting glucose and random glucose. The ADA defines fasting as no caloric intake for at least 8 hours. Fasting plasma glucose results between 100 to 125 mg/dL indicate increased risk for diabetes (prediabetes).Fasting plasma glucose results greater than or equal to 126 mg/dL meet the criteria for diagnosis of diabetes. In the absence of unequivocal hyperglycemia, results should be confirmed by repeat testing. In a patient with classic symptoms of hyperglycemia or hyperglycemic crisis, random plasma glucose results greater than or equal to 200 mg/dL meet the criteria for diagnosis of diabetes.Reference: Standards of Medical Care in Diabetes 2016, [place] [employer]. Diabetes Care. 2016.39(Suppl 1). Performed By: #### 2 4321-2 ####NOONAN LABORATORYCLIA [id number] [place] [address] [place] Potassium [Moles/Vol] 3.7 mmol/L Normal 3.7-5.1 [facility] Comment on above: Order Comment: Speci men Type: BLOOD SPECIMENOrdering Facility: [facility] Address: [address] [place] [address] Performed By: #### 2 4321-2 ####NOONAN LABORATORYCLIA [id number] [place] [id number] [place] Sodium [Moles/Vol] 136 mmol/L Normal 136-144 [facility] Comment on above: Order Comment: Speci men Type: BLOOD SPECIMENOrdering Facility: [facility] Address: [address] [place] [address] Performed By: #### 2 4321-2 ####NOONAN LABORATORYCLIA [id number] [place] [address] [place] Urea nitrogen [Mass/Vol] 19 mg/dL Normal 9-24 [facility] Comment on above: Order Comment: Speci men Type: BLOOD SPECIMENOrdering Facility: [facility] Address: [address] [place] [address] Performed By: #### 2 4321-2 ####NOONAN LABORATORYCLIA [id number] [address] CBC panel Auto (Bld)on 11-29 Erythrocyte distribution width (RBC) [Ratio] 16.0 % High 11.5-15.0 [facility] Comment on above: Order Comment: Speci men Type: BLOOD SPECIMENOrdering Facility: [facility] Address: [address] [place] [address] Performed By: #### 5 8410-2 ####NOONAN LABORATORYCLIA [id number] [address] Hematocrit (Bld) [Volume fraction] 29.5 % Low 39.0-51.0 [facility] Comment on above: Order Comment: Speci men Type: BLOOD SPECIMENOrdering Facility: [facility] Address: [address] [place] [address] Performed By: #### 5 8410-2 ####NOONAN LABORATORYCLIA [id number] [address] Hemoglobin (Bld) [Mass/Vol] 9.5 g/dL Low 13.0-17.0 [facility] Comment on above: Order Comment: Speci men Type: BLOOD SPECIMENOrdering Facility: [facility] Address: [address] [place] [address] Performed By: #### 5 8410-2 ####NOONAN LABORATORYCLIA [id number] [address] MCH (RBC) [Entitic mass] 28.8 pg Normal 26.0-34.0 [facility] Comment on above: Order Comment: Speci men Type: BLOOD SPECIMENOrdering Facility: [facility] Address: [address] [place] [address] Performed By: #### 5 8410-2 ####NOONAN LABORATORYCLIA [id number] [address] MCHC (RBC) [Mass/Vol] 32.2 g/dL Normal 30.5-36.0 [facility] Comment on above: Order Comment: Speci men Type: BLOOD SPECIMENOrdering Facility: [facility] Address: [address] [place] [address] Performed By: #### 5 8410-2 ####NOONAN LABORATORYCLIA [id number] [place] [address] [place] MCV (RBC) [Entitic vol] 89.4 fL Normal 80.0-100.0 [facility] Comment on above: Order Comment: Speci men Type: BLOOD SPECIMENOrdering Facility: [facility] Address: [address] [place] [address] Performed By: #### 5 8410-2 ####NOONAN LABORATORYCLIA [id number] [place] [address] [place] Nucleated RBC (Bld) [#/Vol] 0.05 10*3/uL High <0.01 [facility] Comment on above: Order Comment: Speci men Type: BLOOD SPECIMENOrdering Facility: [facility] Address: [address] [place] [address] Performed By: #### 5 8410-2 ####NOONAN LABORATORYCLIA [id number] [place] [address] [place] Platelet mean volume (Bld) [Entitic vol] 10.2 fL Normal 9.0-12.7 [facility] Comment on above: Order Comment: Speci men Type: BLOOD SPECIMENOrdering Facility: [facility] Address: [address] [place] [address] Performed By: #### 5 8410-2 ####NOONAN LABORATORYCLIA [id number] [place] [address] [place] Platelets (Bld) [#/Vol] 205 10*3/uL Normal 150-400 [facility] Comment on above: Order Comment: Speci men Type: BLOOD SPECIMENOrdering Facility: [facility] Address: [address] [place] [address] Performed By: #### 5 8410-2 ####NOONAN LABORATORYCLIA [id number] [place] [address] [place] RBC (Bld) [#/Vol] 3.30 10*6/uL Low 4.20-6.00 [facility] Comment on above: Order Comment: Speci men Type: BLOOD SPECIMENOrdering Facility: [facility] Address: [address] [place] [address] Performed By: #### 5 8410-2 ####NOONAN LABORATORYCLIA [id number] [address] [facility] WBC (Bld) [#/Vol] 10.76 10*3/uL Normal 3.70-11.00 [facility] Comment on above: Order Comment: Speci men Type: BLOOD SPECIMENOrdering Facility: [facility] Address: [address] [place] [address] Performed By: #### 5 8410-2 ####NOONAN LABORATORYCLIA [id number] [address] CONSULT PROGon 11-30-2023 CONSULT PRO Normal [facility] Normal [facility] Normal [facility] CONSULT [facility] Comprehensive metabolic 2000 panelon 11-30-2023 Albumin [Mass/Vol] 2.7 g/dL Low 3.9-4.9 [facility] Comment on above: Order Comment: Speci men Type: BLOOD SPECIMENOrdering Facility: [facility] Address: [address] [place] [address] Performed By: #### 2 4323-8, 2777-1 ####NOONAN LABORATORYCLIA [id number] [address] [facility] ALP [Catalytic activity/Vol] 95 U/L Normal 38-113 [facility] Comment on above: Order Comment: Speci men Type: BLOOD SPECIMENOrdering Facility: [facility] Address: [address] [place] [address] Performed By: #### 2 4323-8, 2777-1 ####NOONAN LABORATORYCLIA [id number] [address] [facility] ALT [Catalytic activity/Vol] 15 U/L Normal 10-54 [facility] Comment on above: Order Comment: Speci men Type: BLOOD SPECIMENOrdering Facility: [facility] Address: [address] [facility] [place] [address] Performed By: #### 2 4323-8, 2776- ####NOONAN LABORATORYCLIA [id number] [place] [address] [place] Anion gap [Moles/Vol] 13 mmol/L Normal 8-15 [facility] Comment on above: Order Comment: Speci men Type: BLOOD SPECIMENOrdering Facility: [facility] Address: [address] [place] [address] Performed By: #### 2 4323-8, 2776-06 ####NOONAN LABORATORYCLIA [id number] [place] [address] [place] AST [Catalytic activity/Vol] 19 U/L Normal 14-40 [facility] Comment on above: Order Comment: Speci men Type: BLOOD SPECIMENOrdering Facility: [facility] Address: [address] [place] [address] Performed By: #### 2 4323-8, 2776-06 ####NOONAN LABORATORYCLIA [id number] [place] [address] [place] Bilirubin [Mass/Vol] 0.2 mg/dL Normal 0.2-1.3 [facility] Comment on above: Order Comment: Speci men Type: BLOOD SPECIMENOrdering Facility: [facility] Address: [address] [place] [address] Performed By: #### 2 4323-8, 2776-06 ####NOONAN LABORATORYCLIA [id number] [place] [address] [place] Calcium [Mass/Vol] 8.1 mg/dL Low 8.5-10.2 [facility] Comment on above: Order Comment: Speci men Type: BLOOD SPECIMENOrdering Facility: [facility] Address: [address] [place] [address] Performed By: #### 2 4323-8, 2776- ####NOONAN LABORATORYCLIA [id number] [place] [address] [place] Chloride [Moles/Vol] 110 mmol/L High 98-107 [facility] Comment on above: Order Comment: Speci men Type: BLOOD SPECIMENOrdering Facility: [facility] Address: [address] [place] [address] Performed By: #### 2 4323-8, 2776-06 ####NOONAN LABORATORYCLIA [id number] [place] [address] [place] CO2 [Moles/Vol] 15 mmol/L Low 22-30 [facility] Comment on above: Order Comment: Speci men Type: BLOOD SPECIMENOrdering Facility: [facility] Address: [address] [place] [address] Performed By: #### 2 4323-8, 2776-06 ####NOONAN LABORATORYCLIA [id number] [address] [place] Creatinine [Mass/Vol] 1.72 mg/dL High 0.73-1.22 [facility] Comment on above: Order Comment: Speci men Type: BLOOD SPECIMENOrdering Facility: [facility] Address: [address] [place] [address] Performed By: #### 2 4323-8, 2776-06 ####NOONAN LABORATORYCLIA [id number] [address] Creatinine and Glomerular filtration rate.predicted panel (S/P/Bld) 42 mL/min/1.73m??? Low >=60 [facility] Comment on above: Order Comment: Speci men Type: BLOOD SPECIMENOrdering Facility: [facility] Address: [address] [place] [address] Result Comment: Emely mated Glomerular Filtration Rate (eGFR) is calculated using the 2020 CKD-EPI creatinine equation. This equation utilizes serum creatinine, sex, and age as parameters. The creatinine assay has traceable calibration to isotope dilution-mass spectrometry. Refer to KDIGO guidelines for clinical interpretation. In patients with unstable renal function, e.g. those with acute kidney injury, the eGFR may not accurately reflect actual GFR. Performed By: #### 2 4323-8, 2776-06 ####NOONAN LABORATORYCLIA [id number] [place] [address] [place] Glucose [Mass/Vol] 117 mg/dL High 74-99 [facility] Comment on above: Order Comment: Lay barkley Type: BLOOD SPECIMENOrdering Facility: [facility] Address: [address] [place] [address] Result Comment: The [place] Diabetes [employer] (ADA) provides guidance for cutoff values for fasting glucose and random glucose. The ADA defines fasting as no caloric intake for at least 8 hours. Fasting plasma glucose results between 100 to 125 mg/dL indicate increased risk for diabetes (prediabetes).Fasting plasma glucose results greater than or equal to 126 mg/dL meet the criteria for diagnosis of diabetes. In the absence of unequivocal hyperglycemia, results should be confirmed by repeat testing. In a patient with classic symptoms of hyperglycemia or hyperglycemic crisis, random plasma glucose results greater than or equal to 200 mg/dL meet the criteria for diagnosis of diabetes.Reference: Standards of Medical Care in Diabetes 2016, [place] [employer]. Diabetes Care. 2016.39(Suppl 1). Performed By: #### 2 4323-8, 2777- ####NOONAN LABORATORYCLIA [id number] [place] [address] [place] Potassium [Moles/Vol] 3.0 mmol/L Low 3.7-5.1 [facility] Comment on above: Order Comment: Lay barkley Type: BLOOD SPECIMENOrdering Facility: [facility] Address: [address] [place] [address] Performed By: #### 2 4323-8, 2777- ####NOONAN LABORATORYCLIA [id number] [place] [address] [place] Protein [Mass/Vol] 5.2 g/dL Low 6.3-8.0 [facility] Comment on above: Order Comment: Lay barkley Type: BLOOD SPECIMENOrdering Facility: [facility] Address: [address] [place] [address] Performed By: #### 2 4323-8, 2777- ####NOONAN LABORATORYCLIA [id number] [place] [address] [place] Sodium [Moles/Vol] 138 mmol/L Normal 136-144 [facility] Comment on above: Order Comment: Speci men Type: BLOOD SPECIMENOrdering Facility: [facility] Address: [address] [place] [address] Performed By: #### 2 4323-8, 2777-1 ####NOONAN LABORATORYCLIA [id number] [place] [address] [place] Urea nitrogen [Mass/Vol] 21 mg/dL Normal 9-24 [facility] Comment on above: Order Comment: Speci men Type: BLOOD SPECIMENOrdering Facility: [facility] Address: [address] [place] [address] Performed By: #### 2 4323-8, 2777-1 ####NOONAN LABORATORYCLIA [id number] [place] [address] [place] Phosphate SerPl-mCncon 11-29 Phosphate [Mass/Vol] 2.2 mg/dL Low 2.7-4.8 [facility] Comment on above: Order Comment: Speci men Type: BLOOD SPECIMENOrdering Facility: [facility] Address: [address] [place] [address] Performed By: #### 2 4323-8, 2777-1 ####NOONAN LABORATORYCLIA [id number] [place] [id number] [place] Vancomycin [place] SerPl-mCncon 11-30-2023 Vancomycin random [Mass/Vol] 14.9 ug/mL Normal 10.0-20.0 [facility] Comment on above: Order Comment: Speci men Type: BLOOD SPECIMENOrdering Facility: [facility] Address: [address] [place] [address] Result Comment: Refe rence ranges and high/low indicator flags are provided as general guidelines only. The treating physician must determine appropriate target levels/dosing based on the specific clinical situation. Performed By: #### 4 091-5 ####NOONAN LABORATORYCLIA [id number] [place] [id number] [place] Basic metabolic 2000 panelon 11-29-2023 Anion gap [Moles/Vol] 12 mmol/L Normal 8-15 [facility] Comment on above: Order Comment: Speci men Type: BLOOD SPECIMENOrdering Facility: [facility] Address: [address] [place] [address] Performed By: #### 2 4321-2 ####NOONAN LABORATORYCLIA [id number] [place] [address] [place] Calcium [Mass/Vol] 8.1 mg/dL Low 8.5-10.2 [facility] Comment on above: Order Comment: Speci men Type: BLOOD SPECIMENOrdering Facility: [facility] Address: [address] [place] [address] Performed By: #### 2 4321-2 ####NOONAN LABORATORYCLIA [id number] [place] [address] [place] Chloride [Moles/Vol] 106 mmol/L Normal 98-107 [facility] Comment on above: Order Comment: Speci men Type: BLOOD SPECIMENOrdering Facility: [facility] Address: [address] [place] [address] Performed By: #### 2 4321-2 ####NOONAN LABORATORYCLIA [id number] [place] [address] [place] CO2 [Moles/Vol] 18 mmol/L Low 22-30 [facility] Comment on above: Order Comment: Speci men Type: BLOOD SPECIMENOrdering Facility: [facility] Address: [address] [place] [address] Performed By: #### 2 4321-2 ####NOONAN LABORATORYCLIA [id number] [place] [address] [place] Creatinine [Mass/Vol] 1.73 mg/dL High 0.73-1.22 [facility] Comment on above: Order Comment: Speci men Type: BLOOD SPECIMENOrdering Facility: [facility] Address: [address] [place] [address] Performed By: #### 2 4321-2 ####NOONAN LABORATORYCLIA [id number] [place] [address] [place] [facility] [place] Creatinine and Glomerular filtration rate.predicted panel (S/P/Bld) 42 mL/min/1.73m??? Low >=60 [facility] Comment on above: Order Comment: Speci men Type: BLOOD SPECIMENOrdering Facility: [facility] Address: [address] [place] [address] Result Comment: Emely mated Glomerular Filtration Rate (eGFR) is calculated using the 2020 CKD-EPI creatinine equation. This equation utilizes serum creatinine, sex, and age as parameters. The creatinine assay has traceable calibration to isotope dilution-mass spectrometry. Refer to KDIGO guidelines for clinical interpretation. In patients with unstable renal function, e.g. those with acute kidney injury, the eGFR may not accurately reflect actual GFR. Performed By: #### 2 4321-2 ####[facility] LABORATORYCLIA [id number] [place] [address] [place] Glucose [Mass/Vol] 154 mg/dL High 74-99 [facility] Comment on above: Order Comment: Lay barkley Type: BLOOD SPECIMENOrdering Facility: [facility] Address: [address] [place] [address] Result Comment: The [place] Diabetes Association (ADA) provides guidance for cutoff values for fasting glucose and random glucose. The ADA defines fasting as no caloric intake for at least 8 hours. Fasting plasma glucose results between 100 to 125 mg/dL indicate increased risk for diabetes (prediabetes).Fasting plasma glucose results greater than or equal to 126 mg/dL meet the criteria for diagnosis of diabetes. In the absence of unequivocal hyperglycemia, results should be confirmed by repeat testing. In a patient with classic symptoms of hyperglycemia or hyperglycemic crisis, random plasma glucose results greater than or equal to 200 mg/dL meet the criteria for diagnosis of diabetes.Reference: Standards of Medical Care in Diabetes 2016, [place] [employer]. Diabetes Care. 2016.39(Suppl 1). Performed By: #### 2 4321-2 ####[facility] LABORATORYCLIA [id number] [place] [id number] [place] Potassium [Moles/Vol] 3.6 mmol/L Low 3.7-5.1 [facility] Comment on above: Order Comment: Lay barkley Type: BLOOD SPECIMENOrdering Facility: [facility] Address: [address] [place] [address] Performed By: #### 2 4321-2 ####J[facility] LABORATORYCLIA [id number] [address] [place] Sodium [Moles/Vol] 136 mmol/L Normal 136-144 [facility] Comment on above: Order Comment: Speci men Type: BLOOD SPECIMENOrdering Facility: [facility] Address: [address] [facility] [place] [address] Performed By: #### 2 4321-2 ####NOONAN LABORATORYCLIA [id number] [address] [place] [facility] Urea nitrogen [Mass/Vol] 23 mg/dL Normal 9-24 [facility] Comment on above: Order Comment: Speci men Type: BLOOD SPECIMENOrdering Facility: [facility] Address: [address] [place] [address] Performed By: #### 2 4321-2 ####NOONAN LABORATORYCLIA [id number] [address] [place] CBC panel Auto (Bld)on 11-28 Erythrocyte distribution width (RBC) [Ratio] 15.8 % High 11.5-15.0 [facility] Comment on above: Order Comment: Speci men Type: BLOOD SPECIMENOrdering Facility: [facility] Address: [address] [place] [address] Performed By: #### 5 8410-2 ####NOONAN LABORATORYCLIA [id number] [address] Hematocrit (Bld) [Volume fraction] 23.8 % Low 39.0-51.0 [facility] Comment on above: Order Comment: Speci men Type: BLOOD SPECIMENOrdering Facility: [facility] Address: [address] [place] [address] Performed By: #### 5 8410-2 ####NOONAN LABORATORYCLIA [id number] [address] [place] Hemoglobin (Bld) [Mass/Vol] 7.7 g/dL Low 13.0-17.0 [facility] Comment on above: Order Comment: Speci men Type: BLOOD SPECIMENOrdering Facility: [facility] Address: [address] [place] [address] Performed By: #### 5 8410-2 ####NOONAN LABORATORYCLIA [id number] [address] MCH (RBC) [Entitic mass] 28.3 pg Normal 26.0-34.0 [facility] Comment on above: Order Comment: Speci men Type: BLOOD SPECIMENOrdering Facility: [facility] Address: [address] [place] [address] Performed By: #### 5 8410-2 ####NOONAN LABORATORYCLIA [id number] [address] MCHC (RBC) [Mass/Vol] 32.4 g/dL Normal 30.5-36.0 [facility] Comment on above: Order Comment: Speci men Type: BLOOD SPECIMENOrdering Facility: [facility] Address: [address] [place] [address] Performed By: #### 5 8410-2 ####NOONAN LABORATORYCLIA [id number] [address] MCV (RBC) [Entitic vol] 87.5 fL Normal 80.0-100.0 [facility] Comment on above: Order Comment: Speci men Type: BLOOD SPECIMENOrdering Facility: [facility] Address: [address] [place] [address] Performed By: #### 5 8410-2 ####NOONAN LABORATORYCLIA [id number] [address] Nucleated RBC (Bld) [#/Vol] 0.03 10*3/uL High <0.01 [facility] Comment on above: Order Comment: Speci men Type: BLOOD SPECIMENOrdering Facility: [facility] Address: [address] [place] [address] Performed By: #### 5 8410-2 ####NOONAN LABORATORYCLIA [id number] [address] Platelet mean volume (Bld) [Entitic vol] 9.9 fL Normal 9.0-12.7 [facility] Comment on above: Order Comment: Speci men Type: BLOOD SPECIMENOrdering Facility: [facility] Address: [address] [place] [address] Performed By: #### 5 8410-2 ####NOONAN LABORATORYCLIA [id number] [address] Platelets (Bld) [#/Vol] 140 10*3/uL Low 150-400 [facility] Comment on above: Order Comment: Speci men Type: BLOOD SPECIMENOrdering Facility: [facility] Address: [address] [place] [address] Performed By: #### 5 8410-2 ####NOONAN LABORATORYCLIA [id number] [address] [place] RBC (Bld) [#/Vol] 2.72 10*6/uL Low 4.20-6.00 [facility] Comment on above: Order Comment: Speci men Type: BLOOD SPECIMENOrdering Facility: [facility] Address: [address] [place] [address] Performed By: #### 5 8410-2 ####[place] LABORATORYCLIA [id number] [address] WBC (Bld) [#/Vol] 4.46 10*3/uL Normal 3.70-11.00 [facility] Comment on above: Order Comment: Speci men Type: BLOOD SPECIMENOrdering Facility: [facility] Address: [address] [place] [address] Performed By: #### 5 8410-2 ####NOONAN LABORATORYCLIA [id number] [address] CONSULT PROGon 11-29-2023 CONSULT PROG Normal [facility] CONSULT PROG Normal [facility] CONSULT PROG Normal [facility] CONSULT PRO Normal [facility] Comprehensive metabolic 2000 panelon 11-29-2023 Albumin [Mass/Vol] 2.6 g/dL Low 3.9-4.9 [facility] Comment on above: Order Comment: Speci men Type: BLOOD SPECIMENOrdering Facility: [facility] Address: [address] [place] [address] Performed By: #### 2 4323-8 ####NOONAN LABORATORYCLIA [id number] [address] [place] ALP [Catalytic activity/Vol] 94 U/L Normal 38-113 [facility] Comment on above: Order Comment: Speci men Type: BLOOD SPECIMENOrdering Facility: [facility] Address: [address] [place] [address] Performed By: #### 2 4323-8 ####NOONAN LABORATORYCLIA [id number] [place] [address] [place] ALT [Catalytic activity/Vol] 14 U/L Normal 10-54 [facility] Comment on above: Order Comment: Speci men Type: BLOOD SPECIMENOrdering Facility: [facility] Address: [address] [place] [address] Performed By: #### 2 4323-8 ####NOONAN LABORATORYCLIA [id number] [place] [address] [place] Anion gap [Moles/Vol] 13 mmol/L Normal 8-15 [facility] Comment on above: Order Comment: Speci men Type: BLOOD SPECIMENOrdering Facility: [facility] Address: [address] [place] [address] Performed By: #### 2 4323-8 ####NOONAN LABORATORYCLIA [id number] [address] [place] AST [Catalytic activity/Vol] 20 U/L Normal 14-40 [facility] Comment on above: Order Comment: Speci men Type: BLOOD SPECIMENOrdering Facility: [facility] Address: [address] [place] [address] Performed By: #### 2 4323-8 ####NOONAN LABORATORYCLIA [id number] [place] [address] [place] Bilirubin [Mass/Vol] 0.3 mg/dL Normal 0.2-1.3 [facility] Comment on above: Order Comment: Speci men Type: BLOOD SPECIMENOrdering Facility: [facility] Address: [address] [place] [address] Performed By: #### 2 4323-8 ####NOONAN LABORATORYCLIA [id number] [place] [address] [place] Calcium [Mass/Vol] 7.9 mg/dL Low 8.5-10.2 [facility] Comment on above: Order Comment: Speci men Type: BLOOD SPECIMENOrdering Facility: [facility] Address: [address] [place] [address] Performed By: #### 2 4323-8 ####NOONAN LABORATORYCLIA [id number] [place] [address] [place] Chloride [Moles/Vol] 107 mmol/L Normal 98-107 [facility] Comment on above: Order Comment: Speci men Type: BLOOD SPECIMENOrdering Facility: [facility] Address: [address] [place] [address] Performed By: #### 2 4323-8 ####NOONAN LABORATORYCLIA [id number] [place] [address] [place] CO2 [Moles/Vol] 19 mmol/L Low 22-30 [facility] Comment on above: Order Comment: Speci men Type: BLOOD SPECIMENOrdering Facility: [facility] Address: [address] [place] [address] Performed By: #### 2 4323-8 ####NOONAN LABORATORYCLIA [id number] [place] [address] [place] Creatinine [Mass/Vol] 1.82 mg/dL High 0.73-1.22 [facility] Comment on above: Order Comment: Speci men Type: BLOOD SPECIMENOrdering Facility: [facility] Address: [address] [place] [address] Performed By: #### 2 4323-8 ####NOONAN LABORATORYCLIA [id number] [address] Creatinine and Glomerular filtration rate.predicted panel (S/P/Bld) 39 mL/min/1.73m??? Low >=60 [facility] Comment on above: Order Comment: Speci men Type: BLOOD SPECIMENOrdering Facility: [facility] Address: [address] [place] [address] Result Comment: Emely mated Glomerular Filtration Rate (eGFR) is calculated using the 2020 CKD-EPI creatinine equation. This equation utilizes serum creatinine, sex, and age as parameters. The creatinine assay has traceable calibration to isotope dilution-mass spectrometry. Refer to KDIGO guidelines for clinical interpretation. In patients with unstable renal function, e.g. those with acute kidney injury, the eGFR may not accurately reflect actual GFR. Performed By: #### 2 4323-8 ####NOONAN LABORATORYCLIA [id number] [place] [address] [place] Glucose [Mass/Vol] 150 mg/dL High 74-99 [facility] Comment on above: Order Comment: Lay barkley Type: BLOOD SPECIMENOrdering Facility: [facility] Address: [address] [place] [address] Result Comment: The [place] Diabetes Association (ADA) provides guidance for cutoff values for fasting glucose and random glucose. The ADA defines fasting as no caloric intake for at least 8 hours. Fasting plasma glucose results between 100 to 125 mg/dL indicate increased risk for diabetes (prediabetes).Fasting plasma glucose results greater than or equal to 126 mg/dL meet the criteria for diagnosis of diabetes. In the absence of unequivocal hyperglycemia, results should be confirmed by repeat testing. In a patient with classic symptoms of hyperglycemia or hyperglycemic crisis, random plasma glucose results greater than or equal to 200 mg/dL meet the criteria for diagnosis of diabetes.Reference: Standards of Medical Care in Diabetes 2016, [place] [employer]. Diabetes Care. 2016.39(Suppl 1). Performed By: #### 2 4323-8 ####NOONAN LABORATORYCLIA [id number] [place] [address] [place] Potassium [Moles/Vol] 2.8 mmol/L Low 3.7-5.1 [facility] Comment on above: Order Comment: Lay barkley Type: BLOOD SPECIMENOrdering Facility: [facility] Address: [address] [place] [address] Performed By: #### 2 4323-8 ####NOONAN LABORATORYCLIA [id number] [place] [address] [place] Protein [Mass/Vol] 4.6 g/dL Low 6.3-8.0 [facility] Comment on above: Order Comment: Lay barkley Type: BLOOD SPECIMENOrdering Facility: [facility] Address: [address] [place] [address] Performed By: #### 2 4323-8 ####NOONAN LABORATORYCLIA [id number] [address] Sodium [Moles/Vol] 139 mmol/L Normal 136-144 [facility] Comment on above: Order Comment: Speci men Type: BLOOD SPECIMENOrdering Facility: [facility] Address: [address] [place] [address] Performed By: #### 2 4323-8 ####NOONAN LABORATORYCLIA [id number] [address] [place] Urea nitrogen [Mass/Vol] 26 mg/dL High 9-24 [facility] Comment on above: Order Comment: Speci men Type: BLOOD SPECIMENOrdering Facility: [facility] Address: [address] [place] [address] Performed By: #### 2 4323-8 ####[facility] LABORATORYCLIA [id number] [address] Hgb Bld-mCncon 11-29-2023 Hemoglobin (Bld) [Mass/Vol] 9.1 g/dL Low 13.0-17.0 [facility] Comment on above: Order Comment: Speci men Type: BLOOD SPECIMENOrdering Facility: [facility] Address: [address] [place] [address] Performed By: #### 7 18-7 ####[place] LABORATORYCLIA [id number] [address] THERAPY NTon 11-29-2023 THERAPY NT Normal [facility] CASE MGT INIT ASSESon 2023 CASE MGT INIT [facility] CBC panel Auto (Bld)on 11-27 Erythrocyte distribution width (RBC) [Ratio] 15.9 % High 11.5-15.0 [facility] Comment on above: Order Comment: Speci men Type: BLOOD SPECIMENOrdering Facility: [facility] Address: [address] [place] [address] Performed By: #### 5 8410-2 ####[facility] LABORATORYCLIA [id number] [address] [place] Hematocrit (Bld) [Volume fraction] 23.9 % Low 39.0-51.0 [facility] Comment on above: Order Comment: Speci men Type: BLOOD SPECIMENOrdering Facility: [facility] Address: [address] [place] [address] Performed By: #### 5 8410-2 ####[facility] LABORATORYCLIA [id number] [address] Hemoglobin (Bld) [Mass/Vol] 7.7 g/dL Low 13.0-17.0 [facility] Comment on above: Order Comment: Speci men Type: BLOOD SPECIMENOrdering Facility: [facility] Address: [address] [place] [address] Performed By: #### 5 8410-2 ####[facility] LABORATORYCLIA [id number] [address] MCH (RBC) [Entitic mass] 28.4 pg Normal 26.0-34.0 [facility] Comment on above: Order Comment: Speci men Type: BLOOD SPECIMENOrdering Facility: [facility] Address: [address] [place] [address] Performed By: #### 5 8410-2 ####[facility] LABORATORYCLIA [id number] [address] MCHC (RBC) [Mass/Vol] 32.2 g/dL Normal 30.5-36.0 [facility] Comment on above: Order Comment: Speci men Type: BLOOD SPECIMENOrdering Facility: [facility] Address: [address] [place] [address] Performed By: #### 5 8410-2 ####[facility] LABORATORYCLIA [id number] [address] MCV (RBC) [Entitic vol] 88.2 fL Normal 80.0-100.0 [facility] Comment on above: Order Comment: Speci men Type: BLOOD SPECIMENOrdering Facility: [facility] Address: [address] [place] [address] Performed By: #### 5 8410-2 ####[facility] LABORATORYCLIA [id number] [place] [address] [place] Nucleated RBC (Bld) [#/Vol] 0.02 10*3/uL High <0.01 [facility] Comment on above: Order Comment: Speci men Type: BLOOD SPECIMENOrdering Facility: [facility] Address: [address] [place] [address] Performed By: #### 5 8410-2 ####[facility] LABORATORYCLIA [id number] [place] [address] [place] Platelet mean volume (Bld) [Entitic vol] 9.8 fL Normal 9.0-12.7 [facility] Comment on above: Order Comment: Speci men Type: BLOOD SPECIMENOrdering Facility: [facility] Address: [address] [place] [address] Performed By: #### 5 8410-2 ####[facility] LABORATORYCLIA [id number] [place] [address] [place] Platelets (Bld) [#/Vol] 154 10*3/uL Normal 150-400 [facility] Comment on above: Order Comment: Speci men Type: BLOOD SPECIMENOrdering Facility: [facility] Address: [address] [place] [address] Performed By: #### 5 8410-2 ####[facility] LABORATORYCLIA [id number] [place] [address] [place] RBC (Bld) [#/Vol] 2.71 10*6/uL Low 4.20-6.00 [facility] Comment on above: Order Comment: Speci men Type: BLOOD SPECIMENOrdering Facility: [facility] Address: [address] [place] [address] Performed By: #### 5 8410-2 ####[facility] LABORATORYCLIA [id number] [place] [id number] [place] WBC (Bld) [#/Vol] 2.75 10*3/uL Low 3.70-11.00 [facility] Comment on above: Order Comment: Speci men Type: BLOOD SPECIMENOrdering Facility: [facility] Address: [address] [place] [address] Performed By: #### 5 8410-2 ####[facility] LABORATORYCLIA [id number] [address] Erythrocyte distribution width (RBC) [Ratio] 15.8 % High 11.5-15.0 [facility] Comment on above: Order Comment: Speci men Type: BLOOD SPECIMENOrdering Facility: [facility] Address: [address] [place] [address] Performed By: #### 5 8410-2 ####[facility] LABORATORYCLIA [id number] [address] Hematocrit (Bld) [Volume fraction] 23.6 % Low 39.0-51.0 [facility] Comment on above: Order Comment: Speci men Type: BLOOD SPECIMENOrdering Facility: [facility] Address: [address] [place] [address] Performed By: #### 5 8410-2 ####[facility] LABORATORYCLIA [id number] [address] Hemoglobin (Bld) [Mass/Vol] 7.5 g/dL Low 13.0-17.0 [facility] Comment on above: Order Comment: Speci men Type: BLOOD SPECIMENOrdering Facility: [facility] Address: [address] [place] [address] Performed By: #### 5 8410-2 ####[facility] LABORATORYCLIA [id number] [address] MCH (RBC) [Entitic mass] 28.3 pg Normal 26.0-34.0 [facility] Comment on above: Order Comment: Speci men Type: BLOOD SPECIMENOrdering Facility: [facility] Address: [address] [place] [address] Performed By: #### 5 8410-2 ####[facility] LABORATORYCLIA [id number] [address] MCHC (RBC) [Mass/Vol] 31.8 g/dL Normal 30.5-36.0 [facility] Comment on above: Order Comment: Speci men Type: BLOOD SPECIMENOrdering Facility: [facility] Address: [address] [place] [address] Performed By: #### 5 8410-2 ####[facility] LABORATORYCLIA [id number] [address] MCV (RBC) [Entitic vol] 89.1 fL Normal 80.0-100.0 [facility] Comment on above: Order Comment: Speci men Type: BLOOD SPECIMENOrdering Facility: [facility] Address: [address] [place] [address] Performed By: #### 5 8410-2 ####[facility] LABORATORYCLIA [id number] [address] Nucleated RBC (Bld) [#/Vol] 0.02 10*3/uL High <0.01 [facility] Comment on above: Order Comment: Speci men Type: BLOOD SPECIMENOrdering Facility: [facility] Address: [address] [place] [address] Performed By: #### 5 8410-2 ####[facility] LABORATORYCLIA [id number] [address] Platelet mean volume (Bld) [Entitic vol] 10.0 fL Normal 9.0-12.7 [facility] Comment on above: Order Comment: Speci men Type: BLOOD SPECIMENOrdering Facility: [facility] Address: [address] [place] [address] Performed By: #### 5 8410-2 ####[facility] LABORATORYCLIA [id number] [address] Platelets (Bld) [#/Vol] 144 10*3/uL Low 150-400 [facility] Comment on above: Order Comment: Speci men Type: BLOOD SPECIMENOrdering Facility: [facility] Address: [address] [place] [address] Performed By: #### 5 8410-2 ####[facility] LABORATORYCLIA [id number] [address] [place] RBC (Bld) [#/Vol] 2.65 10*6/uL Low 4.20-6.00 [facility] Comment on above: Order Comment: Speci men Type: BLOOD SPECIMENOrdering Facility: [facility] Address: [address] [place] [address] Performed By: #### 5 8410-2 ####[facility] LABORATORYCLIA [id number] [address] [place] WBC (Bld) [#/Vol] 2.24 10*3/uL Low 3.70-11.00 [facility] Comment on above: Order Comment: Speci men Type: BLOOD SPECIMENOrdering Facility: [facility] Address: [address] [place] [address] Performed By: #### 5 8410-2 ####[facility] LABORATORYCLIA [id number] [address] CONSULTon 11-28-2023 CONSULT Normal [facility] CONSULT Normal [facility] CONSULT Normal [facility] CONSULT PROGon 11-28-2023 CONSULT PROG Normal [facility] CONSULT PROG Normal [facility] Chloride ?Tm Ur-sCncon 11-27 Chloride Unsp time (U) [Moles/Vol] 41 mmol/L Normal 16-250 [facility] Comment on above: Order Comment: Speci men Type: URINE SPECIMENOrdering Facility: [facility] Address: [address] [place] [address] Performed By: #### 3 5676-6, 04190-1, 70445-0 ####[facility] LABCLIA [id number] [facility] [id number] [place] Comprehensive metabolic 2000 panelon 11-28-2023 Albumin [Mass/Vol] 2.8 g/dL Low 3.9-4.9 [facility] Comment on above: Order Comment: Speci men Type: BLOOD SPECIMENOrdering Facility: [facility] Address: [address] [place] [address] Performed By: #### 2 4323-8, 39340-4, 2276-4, 42315-8 ####[facility] LABORATORYCLIA [id number] [place] [address] [place] ALP [Catalytic activity/Vol] 104 U/L Normal 38-113 [facility] Comment on above: Order Comment: Speci men Type: BLOOD SPECIMENOrdering Facility: [facility] Address: [address] [place] [address] Performed By: #### 2 4323-8, 07654-9, 2276-4, 75059-7 ####[facility] LABORATORYCLIA [id number] [address] [place] ALT [Catalytic activity/Vol] 17 U/L Normal 10-54 [facility] Comment on above: Order Comment: Speci men Type: BLOOD SPECIMENOrdering Facility: [facility] Address: [address] [place] [address] Performed By: #### 2 4323-8, 71071-9, 2276-4, 88134-9 ####[facility] LABORATORYCLIA [id number] [address] Anion gap [Moles/Vol] 18 mmol/L High 8-15 [facility] Comment on above: Order Comment: Speci men Type: BLOOD SPECIMENOrdering Facility: [facility] Address: [address] [place] [address] Performed By: #### 2 4323-8, 35927-9, 2276-4, 44311-7 ####[facility] LABORATORYCLIA [id number] [address] AST [Catalytic activity/Vol] 18 U/L Normal 14-40 [facility] Comment on above: Order Comment: Speci men Type: BLOOD SPECIMENOrdering Facility: [facility] Address: [address] [facility] [place] [address] Performed By: #### 2 4323-8, 27260-7, 2276-4, 24325-6 ####[facility] LABORATORYCLIA [id number] [address] Bilirubin [Mass/Vol] 0.3 mg/dL Normal 0.2-1.3 [facility] Comment on above: Order Comment: Speci men Type: BLOOD SPECIMENOrdering Facility: [facility] Address: [address], [place] [address] Performed By: #### 2 4323-8, 15549-4, 2276-4, 50227-5 ####[facility] LABORATORYCLIA [id number] [place] [address] [place] Calcium [Mass/Vol] 7.6 mg/dL Low 8.5-10.2 [facility] Comment on above: Order Comment: Speci men Type: BLOOD SPECIMENOrdering Facility: [facility] Address: [address] [place] [address] Performed By: #### 2 4323-8, 05941-3, 2276-4, 18885-4 ####[facility] LABORATORYCLIA [id number] [place] [address] [place] Chloride [Moles/Vol] 101 mmol/L Normal 98-107 [facility] Comment on above: Order Comment: Speci men Type: BLOOD SPECIMENOrdering Facility: [facility] Address: [facility] [place] [address] Performed By: #### 2 4323-8, 10828-7, 2276-4, 19942-1 ####[facility] LABORATORYCLIA [id number] [place] [address] [place] CO2 [Moles/Vol] 13 mmol/L Low 22-30 [facility] Comment on above: Order Comment: Speci men Type: BLOOD SPECIMENOrdering Facility: [facility] Address: [address] [place] [address] Performed By: #### 2 4323-8, 00131-6, 2276-4, 90166-6 ####[facility] LABORATORYCLIA [id number] [place] [id number] [place] Creatinine [Mass/Vol] 2.13 mg/dL High 0.73-1.22 [facility] Comment on above: Order Comment: Speci men Type: BLOOD SPECIMENOrdering Facility: [facility] Address: [address] [place] [address] Performed By: #### 2 4323-8, 78821-0, 2276-4, 12872-2 ####[facility] LABORATORYCLIA [id number] [place] [address] [place] Creatinine and Glomerular filtration rate.predicted panel (S/P/Bld) 32 mL/min/1.73m??? Low >=60 [facility] Comment on above: Order Comment: Lay barkley Type: BLOOD SPECIMENOrdering Facility: [facility] Address: [address] [place] [address] Result Comment: Emely mated Glomerular Filtration Rate (eGFR) is calculated using the 2020 CKD-EPI creatinine equation. This equation utilizes serum creatinine, sex, and age as parameters. The creatinine assay has traceable calibration to isotope dilution-mass spectrometry. Refer to KDIGO guidelines for clinical interpretation. In patients with unstable renal function, e.g. those with acute kidney injury, the eGFR may not accurately reflect actual GFR. Performed By: #### 2 4323-8, 72599-2, 2276-4, 96722-1 ####[facility] LABORATORYCLIA [id number] [place] [address] [place] Glucose [Mass/Vol] 166 mg/dL High 74-99 [facility] Comment on above: Order Comment: Lay barkley Type: BLOOD SPECIMENOrdering Facility: [facility] Address: [address] [place] [address] Result Comment: The [place] Diabetes Association (ADA) provides guidance for cutoff values for fasting glucose and random glucose. The ADA defines fasting as no caloric intake for at least 8 hours. Fasting plasma glucose results between 100 to 125 mg/dL indicate increased risk for diabetes (prediabetes).Fasting plasma glucose results greater than or equal to 126 mg/dL meet the criteria for diagnosis of diabetes. In the absence of unequivocal hyperglycemia, results should be confirmed by repeat testing. In a patient with classic symptoms of hyperglycemia or hyperglycemic crisis, random plasma glucose results greater than or equal to 200 mg/dL meet the criteria for diagnosis of diabetes.Reference: Standards of Medical Care in Diabetes 2016, [place] [employer] Association. Diabetes Care. 2016.39(Suppl 1). Performed By: #### 2 4323-8, 37963-5, 2276-4, 72065-7 ####[facility] LABORATORYCLIA [id number] [place] [id number] [place] Potassium [Moles/Vol] 3.2 mmol/L Low 3.7-5.1 [facility] Comment on above: Order Comment: Speci men Type: BLOOD SPECIMENOrdering Facility: [facility] Address: [address] [place] [address] Performed By: #### 2 4323-8, 14260-9, 2276-4, 12720-7 ####[facility] LABORATORYCLIA [id number] [place] [address] [place] Protein [Mass/Vol] 4.7 g/dL Low 6.3-8.0 [facility] Comment on above: Order Comment: Speci men Type: BLOOD SPECIMENOrdering Facility: [facility] Address: [address] [place] [address] Performed By: #### 2 4323-8, 76002-5, 6-4, 84898-1 ####[facility] LABORATORYCLIA [id number] [place] [address] [place] Sodium [Moles/Vol] 132 mmol/L Low 136-144 [facility] Comment on above: Order Comment: Speci men Type: BLOOD SPECIMENOrdering Facility: [facility] Address: [address] [place] [address] Performed By: #### 2 4323-8, 86761-5, 6-4, 31360-1 ####[facility] LABORATORYCLIA [id number] [address] [place] Urea nitrogen [Mass/Vol] 36 mg/dL High 9-24 [facility] Comment on above: Order Comment: Speci men Type: BLOOD SPECIMENOrdering Facility: [facility] Address: [address] [place] [address] Performed By: #### 2 4323-8, 89240-2, 6-4, 81399-7 ####[facility] LABORATORYCLIA [id number] [place] [address] [place] Ferritin SerPl-mCncon 2023 Ferritin [Mass/Vol] 1294.0 ng/mL High 30.3-565.7 [facility] Comment on above: Order Comment: Speci men Type: BLOOD SPECIMENOrdering Facility: [facility] Address: [address] [place] [address] Performed By: #### 2 4323-8, 91109-7, 2276-4, 38165-9 ####[facility] LABORATORYCLIA [id number] [place] [address] [place] Folate SerPl-ncon 11-28-19 24 Folate [Mass/Vol] ng/mL Normal >4.7 [facility] Comment on above: Order Comment: Speci men Type: BLOOD SPECIMENOrdering Facility: [facility] Address: [address] [place] [address] Result Comment: A re sult of > 20 ng/mL is not necessarily indicative of a pathologic or treatable condition: it reflects a limitation of the test methodology.Assay reference range: 4.8 to 24.2 ng/mL. Suitable for detection of folate deficiency.Reference:Folate III (Folate III) [package insert V 1.0 Portuguese]. [facility], [place], [place]: April 2015. Performed By: #### 2 284-8, 2132-9 ####[facility] LABORATORYCLIA [id number] [address] [place] Iron and Iron binding capaci ty panelon 11-28-2023 Iron [Mass/Vol] 7 ug/dL Low 41-186 [facility] Comment on above: Order Comment: Calii rubia Type: BLOOD SPECIMENOrdering Facility: [facility] Address: [address] [place] [address] Performed By: #### 2 4323-8, 10202-8, 6-4, 88561-6 ####[facility] LABORATORYCLIA [id number] [address] Iron binding capacity [Mass/Vol] 204 ug/dL Low 232-386 [facility] Comment on above: Order Comment: Calii men Type: BLOOD SPECIMENOrdering Facility: [facility] Address: [address] [place] [address] Performed By: #### 2 4323-8, 34881-6, 2276-4, 91313-4 ####[facility] LABORATORYCLIA [id number] [address] Iron/TIBC [Molar ratio] 3.4 % Low 15.0-57.0 [facility] Comment on above: Order Comment: Speci men Type: BLOOD SPECIMENOrdering Facility: [facility] Address: [address] [place] [address] Performed By: #### 2 4323-8, 60740-3, 2276-4, 19960-3 ####[facility] LABORATORYCLIA [id number] [place] [address] [facility] [place] Lactate (Bld) [Moles/Vol]on 11-28-2023 Lactate [Moles/Vol] 3.9 mmol/L High 0.5-2.2 [facility] Comment on above: Order Comment: Speci men Type: BLOOD SPECIMENOrdering Facility: [facility] Address: [address] [place] [address] Performed By: #### 3 2693-4 ####[facility] LABORATORYCLIA [id number] [address] NT-proBNP [facility] Natriuretic peptide.B prohormone N-Terminal [Mass/Vol] 1017 pg/mL High <125 [facility] Comment on above: Order Comment: Speci men Type: BLOOD SPECIMENOrdering Facility: [facility] Address: [address] [place] [address] Performed By: #### 2 4323-8, 74257-2, 2276-4, 15329-8 ####[facility] LABORATORYCLIA [id number] [place] [id number] [place] NUTRITIONon 11-28-2023 NUTRITION Normal [facility] OCCULT BLD EXAM-DIAGon 11-27 OCCULT BLD EXAM-DIAG Positive Abnormal [facility] Comment on above: Performed By: #### O BDX ####[facility] LABORATORYCLIA [id number] [place] [id number] [facility] [place] Potassium ?Tm Ur-sCncon 06- Potassium Unsp time (U) [Moles/Vol] 53.3 mmol/L Normal 10.0-160.0 [facility] Comment on above: Order Comment: Speci men Type: URINE SPECIMENOrdering Facility: [facility] Address: [address] [place] [address] Performed By: #### 3 5676-6, 07166-9, 89713-7 ####[facility] LABCLIA [id number] [address] [place] Sodium ?Tm Ur-sCncon 024 Sodium Unsp time (U) [Moles/Vol] 32 mmol/L Normal 14-216 [facility] Comment on above: Order Comment: Speci men Type: URINE SPECIMENOrdering Facility: [facility] Address: [address] [place] [address] Performed By: #### 3 5676-6, 36649-8, 86055-3 ####[facility] LABCLIA [id number] [address] [place] THERAPY NTon 11-28-2023 THERAPY NT Normal [facility] THERAPY NT Normal [facility] THERAPY NT Normal [facility] TYPE + SCREENon 11-28-2023 ABO A Normal [facility] Comment on above: Order Comment: Speci men Type: BLOOD SPECIMENOrdering Facility: [facility] Address: [address] [place] [address] Performed By: #### T SCR ####[facility] [facility] BANKCLIA [id number] [address] OF [facility] HISTORICAL AB SCR STATUS Negative Normal [facility] Comment on above: Order Comment: Speci men Type: BLOOD SPECIMENOrdering Facility: [facility] Address: [address] [place] [address] Performed By: #### T SCR ####[facility] BANKCLIA [id number] [address] [place] Rh Nom (Bld) Positive Normal [facility] Comment on above: Order Comment: Speci men Type: BLOOD SPECIMENOrdering Facility: [facility] Address: [address] [place] [address] Performed By: #### T SCR ####[facility] BANKCLIA [id number] [place] [address] [place] TYPE AND SCREEN EXPIRATION 12/01/2023 23:59 Normal [facility] Comment on above: Order Comment: Speci men Type: BLOOD SPECIMENOrdering Facility: [facility] Address: [address] [place] [address] Performed By: #### T SCR ####[facility] BANKCLIA [id number] [place] [address] [place] Transferrin receptor.soluble [Mass/Vol]on 11-28-2023 Transferrin receptor.soluble [Moles/Vol] 3.2 mg/L Normal 2.2-5.0 [facility] Comment on above: Order Comment: Speci men Type: BLOOD SPECIMENOrdering Facility: [facility] Address: [address] [place] [address] Performed By: #### 3 0248-9 ####[facility] LABCLIA [id number] [facility] [id number] [address] [place] US KIDNEY/BLADDERon 11-28-19 24 US KIDNEY/BLADDER Normal [facility] Vancomycin Emmaus SerPl-ncon 11-28-2023 Vancomycin random [Mass/Vol] 8.5 ug/mL Low 10.0-20.0 [facility] Comment on above: Order Comment: Speci men Type: BLOOD SPECIMENOrdering Facility: [facility] Address: [address] [place] [address] Result Comment: Refe rence ranges and high/low indicator flags are provided as general guidelines only. The treating physician must determine appropriate target levels/dosing based on the specific clinical situation. Performed By: #### 4 091-5 ####[facility] LABORATORYCLIA [id number] [address] [place] Vit B12 SerPl-mCncon 024 Cobalamin (Vitamin B12) [Mass/Vol] 1758 pg/mL High 232-1245 [facility] Comment on above: Order Comment: Speci men Type: BLOOD SPECIMENOrdering Facility: [facility] Address: [address] [place] [address] Performed By: #### 2 284-8, 2132-9 ####[facility] LABORATORYCLIA [id number] [place] [address] [place] Bacteria Bld Culton 11-27-19 24 Bacteria identified Cx Nom (Bld) CULTURE, BLOOD: No growth 5 days Normal [facility] Comment on above: Performed By: #### 6 00-7 ####[facility] LABCLIA [id number] [place] [address] [place] Bacteria Ur Culton 4 Bacteria identified Cx Nom (U) CULTURE, URINE: No growth (<1,000 CFU/ml) Normal [facility] Comment on above: Performed By: #### 6 30-4 ####[facility] LABCLIA [id number] [place] [address] [place] C diff Tox gens Stl Ql ML+p robeon 11-27-2023 C. difficile toxin genes ML+probe Ql (Stl) Negative Normal Negative for C. difficile toxin by PCR [facility] Comment on above: Order Comment: Speci men Type: STOOL SPECIMENOrdering Facility: [facility] Address: [address] [place] [address] Performed By: #### 5 4067-4 ####[facility] LABCLIA [id number] [place] [address] [place] CBC W Auto Differential pane l (Bld)on 11-27-2023 Anisocytosis Ql (Bld) Present [facility] Comment on above: Order Comment: Speci men Type: BLOOD SPECIMENOrdering Facility: [facility] Address: [address] [place] [address] Performed By: #### 5 7021-8 ####[facility] LABORATORYCLIA [id number] [place] [address] [place] Basophils (Bld) [#/Vol] 0.02 10*3/uL Normal <0.11 [facility] Comment on above: Order Comment: Speci men Type: BLOOD SPECIMENOrdering Facility: [facility] Address: [address] [place] [address] Performed By: #### 5 7021-8 ####[facility] LABORATORYCLIA [id number] [address] [place] Basophils/100 WBC (Bld) 1.0 % Normal [facility] Comment on above: Order Comment: Speci men Type: BLOOD SPECIMENOrdering Facility: [facility] Address: [address] [place] [address] Performed By: #### 5 7021-8 ####[facility]ON[facility] LABORATORYCLIA [id number] [place] [address] [place] Differential cell count method Nom (Bld) Manual Normal [facility] Comment on above: Order Comment: Speci men Type: BLOOD SPECIMENOrdering Facility: [facility] Address: [address] [place] [address] Performed By: #### 5 7021-8 ####[facility]ON[facility] LABORATORYCLIA [id number] [place] [address] [place] Eosinophils (Bld) [#/Vol] 0.04 10*3/uL Normal <0.46 [facility] Comment on above: Order Comment: Speci men Type: BLOOD SPECIMENOrdering Facility: [facility] Address: [address] [place] [address] Performed By: #### 5 7021-8 ####[facility]ON[facility] LABORATORYCLIA [id number] [address] Eosinophils/100 WBC (Bld) 2.0 % Normal [facility] Comment on above: Order Comment: Speci men Type: BLOOD SPECIMENOrdering Facility: [facility] Address: [address] [place] [address] Performed By: #### 5 7021-8 ####[facility] LABORATORYCLIA [id number] [place] [address] [place] Erythrocyte distribution width (RBC) [Ratio] 15.6 % High 11.5-15.0 [facility] Comment on above: Order Comment: Speci men Type: BLOOD SPECIMENOrdering Facility: [facility] Address: [address] [place] [address] Performed By: #### 5 7021-8 ####[facility] LABORATORYCLIA [id number] [place] [address] [place] Hematocrit (Bld) [Volume fraction] 30.3 % Low 39.0-51.0 [facility] Comment on above: Order Comment: Speci men Type: BLOOD SPECIMENOrdering Facility: [facility] Address: [address] [place] [address] Performed By: #### 5 7021-8 ####NOON[facility] LABORATORYCLIA [id number] [place] [address] [place] Hemoglobin (Bld) [Mass/Vol] 9.7 g/dL Low 13.0-17.0 [facility] Comment on above: Order Comment: Speci men Type: BLOOD SPECIMENOrdering Facility: [facility] Address: [address] [place] [address] Performed By: #### 5 7021-8 ####NOON[facility] LABORATORYCLIA [id number] [place] [address] [place] Lymphocytes (Bld) [#/Vol] 0.29 10*3/uL Low 1.00-4.00 [facility] Comment on above: Order Comment: Speci men Type: BLOOD SPECIMENOrdering Facility: [facility] Address: [address] [place] [address] Performed By: #### 5 7021-8 ####NOONAN LABORATORYCLIA [id number] [address] [place] Lymphocytes/100 WBC (Bld) 14.0 % Normal [facility] Comment on above: Order Comment: Speci men Type: BLOOD SPECIMENOrdering Facility: [facility] Address: [address] [place] [address] Performed By: #### 5 7021-8 ####NOONAN LABORATORYCLIA [id number] [address] [place] MCH (RBC) [Entitic mass] 28.9 pg Normal 26.0-34.0 [facility] Comment on above: Order Comment: Speci men Type: BLOOD SPECIMENOrdering Facility: [facility] Address: [address] [place] [address] Performed By: #### 5 7021-8 ####NOONAN LABORATORYCLIA [id number] [address] STATES [facility] MCHC (RBC) [Mass/Vol] 32.0 g/dL Normal 30.5-36.0 [facility] Comment on above: Order Comment: Speci men Type: BLOOD SPECIMENOrdering Facility: [facility] Address: [address] [place] [address] Performed By: #### 5 7021-8 ####NOONAN LABORATORYCLIA [id number] [address] STATES [facility] MCV (RBC) [Entitic vol] 90.2 fL Normal 80.0-100.0 [facility] Comment on above: Order Comment: Speci men Type: BLOOD SPECIMENOrdering Facility: [facility] Address: [address] [place] [address] Performed By: #### 5 7021-8 ####NOONAN LABORATORYCLIA [id number] [address] Metamyelocytes/100 WBC (Bld) 2.0 % Normal [facility] Comment on above: Order Comment: Speci men Type: BLOOD SPECIMENOrdering Facility: [facility] Address: [address] [place] [address] Performed By: #### 5 7021-8 ####NOONAN LABORATORYCLIA [id number] [address] [place] Monocytes (Bld) [#/Vol] 0.51 10*3/uL Normal <0.87 [facility] Comment on above: Order Comment: Speci men Type: BLOOD SPECIMENOrdering Facility: [facility] Address: [address] [place] [address] Performed By: #### 5 7021-8 ####NOONAN LABORATORYCLIA [id number] [address] Monocytes/100 WBC (Bld) 25.0 % Normal [facility] Comment on above: Order Comment: Speci men Type: BLOOD SPECIMENOrdering Facility: [facility] Address: [address] [place] [address] Performed By: #### 5 7021-8 ####NOONAN LABORATORYCLIA [id number] [place] [address] [place] Neutrophils (Bld) [#/Vol] 1.14 10*3/uL Low 1.45-7.50 [facility] Comment on above: Order Comment: Speci men Type: BLOOD SPECIMENOrdering Facility: [facility] Address: [address] [place] [address] Performed By: #### 5 7021-8 ####NOONAN LABORATORYCLIA [id number] [address] Neutrophils/100 WBC (Bld) 56.0 % Normal [facility] Comment on above: Order Comment: Speci men Type: BLOOD SPECIMENOrdering Facility: [facility] Address: [address] [place] [address] Performed By: #### 5 7021-8 ####NOONAN LABORATORYCLIA [id number] [place] [address] [place] Nucleated RBC (Bld) [#/Vol] 0.02 10*3/uL High <0.01 [facility] Comment on above: Order Comment: Speci men Type: BLOOD SPECIMENOrdering Facility: [facility] Address: [address] [place] [address] Performed By: #### 5 7021-8 ####NOON[facility] LABORATORYCLIA [id number] [address] [place] Nucleated RBC/100 WBC (Bld) [Ratio] 1.0 /100 WBC Normal [facility] Comment on above: Order Comment: Speci men Type: BLOOD SPECIMENOrdering Facility: [facility] Address: [address] [place] [address] Performed By: #### 5 7021-8 ####NOONAN LABORATORYCLIA [id number] [address] [place] Platelet mean volume (Bld) [Entitic vol] 10.4 fL Normal 9.0-12.7 [facility] Comment on above: Order Comment: Speci men Type: BLOOD SPECIMENOrdering Facility: [facility] Address: [address] [place] [address] Performed By: #### 5 7021-8 ####NOONAN LABORATORYCLIA [id number] [address] Platelets (Bld) [#/Vol] 162 10*3/uL Normal 150-400 [facility] Comment on above: Order Comment: Speci men Type: BLOOD SPECIMENOrdering Facility: [facility] Address: [address] [place] [address] Performed By: #### 5 7021-8 ####NOONAN LABORATORYCLIA [id number] [address] Platelets Estimate (Bld) [#/Vol] Adequate Normal [facility] Comment on above: Order Comment: Speci men Type: BLOOD SPECIMENOrdering Facility: [facility] Address: [address] [place] [address] Performed By: #### 5 7021-8 ####NOONAN LABORATORYCLIA [id number] [address] [place] RBC (Bld) [#/Vol] 3.36 10*6/uL Low 4.20-6.00 [facility] Comment on above: Order Comment: Speci men Type: BLOOD SPECIMENOrdering Facility: [facility] Address: [address] [place] [address] Performed By: #### 5 7021-8 ####NOONAN LABORATORYCLIA [id number] [address] RED CELL MORPH Reviewed: see result s of individual morphologies Normal [facility] Comment on above: Order Comment: Speci men Type: BLOOD SPECIMENOrdering Facility: [facility] Address: [address] [place] [address] Performed By: #### 5 7021-8 ####NOONAN LABORATORYCLIA [id number] [address] [place] Toxic granules LM Ql (Bld) Present Normal [facility] Comment on above: Order Comment: Speci men Type: BLOOD SPECIMENOrdering Facility: [facility] Address: [address] [place] [address] Performed By: #### 5 7021-8 ####NOONAN LABORATORYCLIA [id number] [address] [place] WBC (Bld) [#/Vol] 2.04 10*3/uL Low 3.70-11.00 [facility] Comment on above: Order Comment: Speci men Type: BLOOD SPECIMENOrdering Facility: [facility] Address: [address] [place] [address] Performed By: #### 5 7021-8 ####NOONAN LABORATORYCLIA [id number] [address] [place] WBC Left Shift Ql (Bld) Present [facility] Comment on above: Order Comment: Speci men Type: BLOOD SPECIMENOrdering Facility: [facility] Address: [address] [place] [address] Performed By: #### 5 7021-8 ####NOONAN LABORATORYCLIA [id number] [place] [address] [place] CNPNon 11-27-2023 CNPN Normal [facility] CONSULT PROGon 11-27-2023 CONSULT PROG Normal [facility] Comprehensive metabolic 2000 panelon 11-27-2023 Albumin [Mass/Vol] 3.4 g/dL Low 3.9-4.9 [facility] Comment on above: Order Comment: Speci men Type: BLOOD SPECIMENOrdering Facility: [facility] Address: [address] [place] [address] Performed By: #### 2 4323-8, ####NOONAN LABORATORYCLIA [id number] [address] [place] ALP [Catalytic activity/Vol] 151 U/L High 38-113 [facility] Comment on above: Order Comment: Speci men Type: BLOOD SPECIMENOrdering Facility: [facility] Address: [address] [place] [address] Performed By: #### 2 4323-8, ####NOONAN LABORATORYCLIA [id number] [address] ALT [Catalytic activity/Vol] 24 U/L Normal 10-54 [facility] Comment on above: Order Comment: Speci men Type: BLOOD SPECIMENOrdering Facility: [facility] Address: [address] [place] [address] Performed By: #### 2 4323-8, ####NOONAN LABORATORYCLIA [id number] [place] [address] [place] Anion gap [Moles/Vol] 18 mmol/L High 8-15 [facility] Comment on above: Order Comment: Speci men Type: BLOOD SPECIMENOrdering Facility: [facility] Address: [address] [place] [address] Performed By: #### 2 4328, ####NOONAN LABORATORYCLIA [id number] [address] [place] AST [Catalytic activity/Vol] 24 U/L Normal 14-40 [facility] Comment on above: Order Comment: Speci men Type: BLOOD SPECIMENOrdering Facility: [facility] Address: [address] [place] [address] Performed By: #### 2 432-8, ####NOONAN LABORATORYCLIA [id number] [place] [address] [place] Bilirubin [Mass/Vol] 0.3 mg/dL Normal 0.2-1.3 [facility] Comment on above: Order Comment: Speci men Type: BLOOD SPECIMENOrdering Facility: [facility] Address: [address] [place] [address] Performed By: #### 2 432-8, ####NOONAN LABORATORYCLIA [id number] [address] [place] Calcium [Mass/Vol] 8.4 mg/dL Low 8.5-10.2 [facility] Comment on above: Order Comment: Speci men Type: BLOOD SPECIMENOrdering Facility: [facility] Address: [address] [place] [address] Performed By: #### 2 4328, ####NOONAN LABORATORYCLIA [id number] [place] [address] [place] Chloride [Moles/Vol] 99 mmol/L Normal 98-107 [facility] Comment on above: Order Comment: Lay bark[place] Type: BLOOD SPECIMENOrdering Facility: [facility] Address: [address] [place] [address] Performed By: #### 2 4323-8, ####NOONAN LABORATORYCLIA [id number] [place] [address] [place] CO2 [Moles/Vol] 13 mmol/L Low 22-30 [facility] Comment on above: Order Comment: Lay bark[place] Type: BLOOD SPECIMENOrdering Facility: [facility] Address: [address] [place] [address] Performed By: #### 2 4323-8, ####NOONAN LABORATORYCLIA [id number] [address] [place] Creatinine [Mass/Vol] 1.50 mg/dL High 0.73-1.22 [facility] Comment on above: Order Comment: Lay bark[place] Type: BLOOD SPECIMENOrdering Facility: [facility] Address: [address] [place] [address] Performed By: #### 2 4323-8, ####NOONAN LABORATORYCLIA [id number] [address] Creatinine and Glomerular filtration rate.predicted panel (S/P/Bld) 49 mL/min/1.73m??? Low >=60 [facility] Comment on above: Order Comment: Lay bark[place] Type: BLOOD SPECIMENOrdering Facility: [facility] Address: [address] [place] [address] Result Comment: Emely mated Glomerular Filtration Rate (eGFR) is calculated using the 2020 CKD-EPI creatinine equation. This equation utilizes serum creatinine, sex, and age as parameters. The creatinine assay has traceable calibration to isotope dilution-mass spectrometry. Refer to KDIGO guidelines for clinical interpretation. In patients with unstable renal function, e.g. those with acute kidney injury, the eGFR may not accurately reflect actual GFR. Performed By: #### 2 4328, ####NOONAN LABORATORYCLIA [id number] [place] [address] [place] Glucose [Mass/Vol] 215 mg/dL High 74-99 [facility] Comment on above: Order Comment: Lay bark[place] Type: BLOOD SPECIMENOrdering Facility: [facility] Address: [address] [place] [address] Result Comment: The [place] [employer] Association (ADA) provides guidance for cutoff values for fasting glucose and random glucose. The ADA defines fasting as no caloric intake for at least 8 hours. Fasting plasma glucose results between 100 to 125 mg/dL indicate increased risk for diabetes (prediabetes).Fasting plasma glucose results greater than or equal to 126 mg/dL meet the criteria for diagnosis of diabetes. In the absence of unequivocal hyperglycemia, results should be confirmed by repeat testing. In a patient with classic symptoms of hyperglycemia or hyperglycemic crisis, random plasma glucose results greater than or equal to 200 mg/dL meet the criteria for diagnosis of diabetes.Reference: Standards of Medical Care in Diabetes 2016, [place] [employer]. Diabetes Care. 2016.39(Suppl 1). Performed By: #### 2 4328, ####[facility] LABORATORYCLIA [id number] [place] [id number] [place] Potassium [Moles/Vol] 4.2 mmol/L Normal 3.7-5.1 [facility] Comment on above: Order Comment: Lay barkley Type: BLOOD SPECIMENOrdering Facility: [facility] Address: [address] [place] [address] Performed By: #### 2 4328, ####NOONAN LABORATORYCLIA [id number] [place] [address] [place] Protein [Mass/Vol] 6.2 g/dL Low 6.3-8.0 [facility] Comment on above: Order Comment: Lay barkley Type: BLOOD SPECIMENOrdering Facility: [facility] Address: [address] [place], [place] [id number] Performed By: #### 2 4328, ####NOONAN LABORATORYCLIA [id number] [place] [id number] [place] Sodium [Moles/Vol] 130 mmol/L Low 136-144 [facility] Comment on above: Order Comment: Speci men Type: BLOOD SPECIMENOrdering Facility: [facility] Address: [address] [place] [address] Performed By: #### 2 4323-8, ####NOONAN LABORATORYCLIA [id number] [place] [address] [facility] Urea nitrogen [Mass/Vol] 36 mg/dL High 9-24 [facility] Comment on above: Order Comment: Speci men Type: BLOOD SPECIMENOrdering Facility: [facility] Address: [address] [place] [address] Performed By: #### 2 4323-8, ####NOONAN LABORATORYCLIA [id number] [place] [address] [facility] ED NOTEon 11-27-2023 ED NOTE HNO ID: [id number] Author: KARLA GREGORIO RN Service: Nursing Author Type: Registered Nurse Type: ED Notes Filed: 11/27/2023 21:18 Note Text: Pt report was called to Peri ROACH Pt and family were updated of the bed assignment [facility] ED NOTE [facility] ED NOTE HNO ID: [id number] Author: KARLA GREGORIO RN Service: Nursing Author Type: Registered Nurse Type: ED Notes Filed: 11/27/2023 20:25 Note Text: 10 min heads up was provided [facility] ED NOTE HNO ID: [id number] Author: KARLA GREGORIO RN Service: Nursing Author Type: Registered Nurse Type: ED Notes Filed: 11/27/2023 19:59 Note Text: Pt is resting states he feels lightheaded [facility] ED NOTE HNO ID: [id number] Author: KARLA GREGORIO RN Service: Nursing Author Type: Registered Nurse Type: ED Notes Filed: 11/27/2023 18:30 Note Text: Pt is alert and oriented times 3 pts and son are bedside [facility] ED NOTE HNO ID: [id number] Author: KARLA GREGORIO RN Service: Nursing Author Type: Registered Nurse Type: ED Notes Filed: 11/27/2023 18:03 Note Text: Pt to radiology per the er cart and pts son remain bedside [facility] ED NOTE HNO ID: [id number] Author: KARLA GREGORIO RN Service: Nursing Author Type: Registered Nurse Type: ED Notes Filed: 11/27/2023 17:33 Note Text: PA is bedside Normal [facility] ED NOTE HNO ID: [id number] Author: KARLA GREGORIO RN Service: Nursing Author Type: Registered Nurse Type: ED Notes Filed: 11/27/2023 17:09 Note Text: Pt was placed in the er room 19 per wheelchair is bedside Normal [facility] ED PROV NOTEon 11-27-2023 ED PROV NOTE Normal [facility] FECAL LACTOFERRIN/LEUKOCYTES on 11-27-2023 Lactoferrin IA Ql (Stl) Positive for lactoferrin, which may indicate presence of fecal white blood cells Abnormal Negative [facility] Comment on above: Order Comment: Speci men Type: STOOL SPECIMENOrdering Facility: [facility] Address: [address] [place] [address] Performed By: #### F ECWBC ####[facility] LABCLIA [id number] [place] [address] [place] FLUABV+SARS-CoV-2+RSV Pnl Re sp ML+probeon 11-27-2023 FLUABV+SARS-CoV-2+R SV Pnl Resp ML+probe Normal [facility] Comment on above: Performed By: #### 9 5941-1 ####[facility] LABORATORYCLIA [id number] [place] [address] [place] Gastrointestinal pathogens i dentified ML+probe Nom (Stl)on 11-27-2023 Campylobacter sp DNA ML+probe Nom (Unsp spec) Not detected Normal Not Detected [facility] Comment on above: Order Comment: Speci men Type: STOOL SPECIMENOrdering Facility: [facility] Address: [address] [place] [address] Performed By: #### 7 9390-1 ####[facility] LABCLIA [id number] [address] [place] Salmonella sp DNA ML+probe Ql (Unsp spec) Not detected Normal Not Detected [facility] Comment on above: Order Comment: Speci men Type: STOOL SPECIMENOrdering Facility: [facility] Address: [address] [place] [address] Performed By: #### 7 9390-1 ####[facility] LABCLIA [id number] [address] [place] Shiga toxin stx gene ML+probe Nom (Unsp spec) Not detected Normal Not Detected [facility] Comment on above: Order Comment: Speci men Type: STOOL SPECIMENOrdering Facility: [facility] Address: [address] [place] [address] Performed By: #### 7 9390-1 ####[facility] LABCLIA [id number] [address] [place] Shigella sp DNA ML+probe Ql (Unsp spec) Not detected Normal Not Detected [facility] Comment on above: Order Comment: Speci men Type: STOOL SPECIMENOrdering Facility: [facility] Address: [address] [place] [address] Performed By: #### 7 9390-1 ####[facility] LABCLIA [id number] [place] [address] [place] HISTORY PHYSICALon HISTORY PHYSICAL Normal [facility] Magnesium SerPl-mCncon 11-26 Magnesium [Mass/Vol] 1.7 mg/dL Normal 1.7-2.3 [facility] Comment on above: Order Comment: Speci men Type: BLOOD SPECIMENOrdering Facility: [facility] Address: [address] [place] [address] Performed By: #### 2 4323-8, 52079-7 ####[facility] LABORATORYCLIA [id number] [place] [address] [place] SEPSIS LACTATE W/ REFLEX (IN ITIAL)on 11-27-2023 Lactate [Moles/Vol] 3.2 mmol/L High 0.5-2.0 [facility] Comment on above: Order Comment: Speci men Type: BLOOD SPECIMENOrdering Facility: [facility] Address: [address] [place] [address] Performed By: #### S LACTR ####[facility] LABORATORYCLIA [id number] [address] [place] SEPSIS LACTATE W/ REFLEX (SE COND)on 11-27-2023 Lactate [Moles/Vol] 3.1 mmol/L High 0.5-2.0 [facility] Comment on above: Order Comment: Speci men Type: BLOOD SPECIMENOrdering Facility: [facility] Address: [address] [place] [address] Performed By: #### S LACT2 ####[facility] LABORATORYCLIA [id number] [address] URINALYSIS, REFLEX MICROSCOP ICon 11-27-2023 Bacteria LM.HPF (Urine sed) [#/Area] Few Abnormal None Seen [facility] Comment on above: Order Comment: Speci men Type: URINE SPECIMENOrdering Facility: [facility] Address: [address] [place] [address] Performed By: #### L [id number] ####[facility] LABORATORYCLIA [id number] [address] Bilirubin Ql (U) Negative Normal Negative [facility] Comment on above: Order Comment: Speci men Type: URINE SPECIMENOrdering Facility: [facility] Address: [address] [place] [address] Performed By: #### L [id number] ####[facility] LABORATORYCLIA [id number] [address] [place] Clarity (Unsp spec) Clear Normal Clear [facility] Comment on above: Order Comment: Speci men Type: URINE SPECIMENOrdering Facility: [facility] Address: [address] [place] [address] Performed By: #### L [id number] ####[facility] LABORATORYCLIA [id number] [address] Color (U) Yellow Normal Yellow [facility] Comment on above: Order Comment: Speci men Type: URINE SPECIMENOrdering Facility: [facility] Address: [address] [place] [address] Performed By: #### L [id number] ####[facility] LABORATORYCLIA [id number] [address] [place] Glucose Test strip (U) [Mass/Vol] Negative Normal Negative [facility] Comment on above: Order Comment: Speci men Type: URINE SPECIMENOrdering Facility: [facility] Address: [address] [place] [address] Performed By: #### L [id number] ####[facility] LABORATORYCLIA [id number] [address] [place] Granular casts (Urine sed) [#/Area] 4-10 /LPF Abnormal 0 /LPF [facility] Comment on above: Order Comment: Speci men Type: URINE SPECIMENOrdering Facility: [facility] Address: [address] [place] [address] Performed By: #### L [id number] ####[facility] LABORATORYCLIA [id number] [place] [address] [place] Hemoglobin Ql (U) Negative Normal Negative [facility] Comment on above: Order Comment: Speci men Type: URINE SPECIMENOrdering Facility: [facility] [facility] Address: [address] [place] [address] Performed By: #### L [id number] ####[facility]ON[facility] LABORATORYCLIA [id number] [address] [place] Hyaline casts (Urine sed) [#/Area] 1-3 /LPF Abnormal 0 /LPF [facility] Comment on above: Order Comment: Speci men Type: URINE SPECIMENOrdering Facility: [facility] Address: [address] [place] [address] Performed By: #### L [id number] ####NOONAN LABORATORYCLIA [id number] [place] [address] [facility] [place] Ketones Ql (U) Negative Normal Negative [facility] Comment on above: Order Comment: Speci men Type: URINE SPECIMENOrdering Facility: [facility] Address: [address] [place] [address] Performed By: #### L [id number] ####NOONAN LABORATORYCLIA [id number] [address] Leukocyte esterase Test strip Ql (U) Negative Normal Negative [facility] Comment on above: Order Comment: Speci men Type: URINE SPECIMENOrdering Facility: [facility] Address: [address] [place] [address] Performed By: #### L [id number] ####NOONAN LABORATORYCLIA [id number] [address] Nitrite Ql (U) Negative Normal Negative [facility] Comment on above: Order Comment: Speci men Type: URINE SPECIMENOrdering Facility: [facility] Address: [address] [place] [address] Performed By: #### L [id number] ####NOONAN LABORATORYCLIA [id number] [address] [place] pH (U) 6.0 [pH] Normal 5.0-8.0 [facility] Comment on above: Order Comment: Speci men Type: URINE SPECIMENOrdering Facility: [facility] Address: [address] [place] [address] Performed By: #### L [id number] ####NOONAN LABORATORYCLIA [id number] [address] Protein (U) [Mass/Vol] 1+ Abnormal Negative [facility] Comment on above: Order Comment: Speci men Type: URINE SPECIMENOrdering Facility: [facility] Address: [address] [place] [address] Performed By: #### L [id number] ####NOONAN LABORATORYCLIA [id number] [address] [place] RBC LM.HPF (Urine sed) [#/Area] 0-3 /HPF Normal 0-3 /HPF [facility] Comment on above: Order Comment: Speci men Type: URINE SPECIMENOrdering Facility: [facility] Address: [address] [place] [address] Performed By: #### L [id number] ####[facility] LABORATORYCLIA [id number] [place] [address] [place] Specific gravity (U) [Rel density] >=1.030 High 1.005-1.03 0 [facility] Comment on above: Order Comment: Speci men Type: URINE SPECIMENOrdering Facility: [facility] Address: [address] [place] [address] Performed By: #### L [id number] ####[facility] LABORATORYCLIA [id number] [place] [address] [place] Urobilinogen Ql (U) 0.2 EU/dL Normal 0.2-1.0 EU/dL [facility] Comment on above: Order Comment: Speci men Type: URINE SPECIMENOrdering Facility: [facility] Address: [address] [place] [address] Performed By: #### L [id number] ####[facility] HOSPITALCLIA [id number] [place] [address] [place] WBC LM.HPF (Urine sed) [#/Area] 0-5 /HPF Normal 0-5 /HPF [facility] Comment on above: Order Comment: Speci men Type: URINE SPECIMENOrdering Facility: [facility] Address: [address] [place] [address] Performed By: #### L [id number] ####[facility] LABORATORYCLIA [id number] [place] [address] [place] XR CHEST 2V FRONTAL/LATon XR CHEST 2V FRONTAL/LAT Normal [facility] Basic metabolic 2000 panelon 11-26-2023 Anion gap [Moles/Vol] 12 mmol/L Normal 8-15 [facility] Comment on above: Order Comment: Speci men Type: BLOOD SPECIMENOrdering Facility: [facility] Address: [address] [place] [address] Performed By: #### 2 4321-2 ####[facility] CATHY [facility] HOSPITALNorma [id number] [place] [address] [place] Calcium [Mass/Vol] 8.9 mg/dL Normal 8.5-10.2 [facility] Comment on above: Order Comment: Speci men Type: BLOOD SPECIMENOrdering Facility: [facility] Address: [address] [place] [address] Performed By: #### 2 4321-2 ####[facility] HOSPITALWAKLIA [id number] [place] [address] [place] Chloride [Moles/Vol] 108 mmol/L High 98-107 [facility] Comment on above: Order Comment: Speci men Type: BLOOD SPECIMENOrdering Facility: [facility] Address: [address] [place] [address] Performed By: #### 2 4321-2 ####[facility] MEDICAL CENTERLIA [id number] [place] [address] [place] CO2 [Moles/Vol] 14 mmol/L Low 22-30 [facility] Comment on above: Order Comment: Speci men Type: BLOOD SPECIMENOrdering Facility: [facility] Address: [address] [place] [address] Performed By: #### 2 4321-2 ####[facility] FLORIDAA [id number] [place] [address] [place] Creatinine [Mass/Vol] 1.19 mg/dL Normal 0.73-1.22 [facility] Comment on above: Order Comment: Speci men Type: BLOOD SPECIMENOrdering Facility: [facility] Address: [address] [place] [address] Performed By: #### 2 4321-2 ####[facility] FLORIDAA [id number] [place] [address] [place] Creatinine and Glomerular filtration rate.predicted panel (S/P/Bld) 65 mL/min/1.73m??? Normal >=60 [facility] Comment on above: Order Comment: Speci men Type: BLOOD SPECIMENOrdering Facility: [facility] Address: [facility] [place] [address] Result Comment: Emely mated Glomerular Filtration Rate (eGFR) is calculated using the 2020 CKD-EPI creatinine equation. This equation utilizes serum creatinine, sex, and age as parameters. The creatinine assay has traceable calibration to isotope dilution-mass spectrometry. Refer to KDIGO guidelines for clinical interpretation. In patients with unstable renal function, e.g. those with acute kidney injury, the eGFR may not accurately reflect actual GFR. Performed By: #### 2 4321-2 ####[facility] [id number] [place] [address] [place] Glucose [Mass/Vol] 125 mg/dL High 74-99 [facility] Comment on above: Order Comment: Lay barkley Type: BLOOD SPECIMENOrdering Facility: [facility] Address: [address] [place] [address] Result Comment: The [place] Diabetes Association (ADA) provides guidance for cutoff values for fasting glucose and random glucose. The ADA defines fasting as no caloric intake for at least 8 hours. Fasting plasma glucose results between 100 to 125 mg/dL indicate increased risk for diabetes (prediabetes).Fasting plasma glucose results greater than or equal to 126 mg/dL meet the criteria for diagnosis of diabetes. In the absence of unequivocal hyperglycemia, results should be confirmed by repeat testing. In a patient with classic symptoms of hyperglycemia or hyperglycemic crisis, random plasma glucose results greater than or equal to 200 mg/dL meet the criteria for diagnosis of diabetes.Reference: Standards of Medical Care in Diabetes 2016, [place] Diabetes Association. Diabetes Care. 2016.39(Suppl 1). Performed By: #### 2 4321-2 ####[facility] FLORIDAA [id number] [place] [address] [place] Potassium [Moles/Vol] 4.3 mmol/L Normal 3.7-5.1 [facility] Comment on above: Order Comment: Lay barkley Type: BLOOD SPECIMENOrdering Facility: [facility] Address: [address] [id number] Performed By: #### 2 4321-2 ####[facility] [id number] [place] [address] [place] Sodium [Moles/Vol] 134 mmol/L Low 136-144 [facility] Comment on above: Order Comment: Speci men Type: BLOOD SPECIMENOrdering Facility: [facility] Address: [address] [place] [address] Performed By: #### 2 4321-2 ####[facility] [id number] [place] [address] [place] Urea nitrogen [Mass/Vol] 32 mg/dL High 9-24 [facility] Comment on above: Order Comment: Speci men Type: BLOOD SPECIMENOrdering Facility: [facility] Address: [address] [place] [address] Performed By: #### 2 4321-2 ####[facility] [id number] [place] [address] [place] Cholesterol in LDL Direct as say [Mass/Vol]on 11-26-2023 Cholesterol in LDL [Mass/Vol] 43 mg/dL Normal <100 [facility] Comment on above: Order Comment: Speci men Type: BLOOD SPECIMENOrdering Facility: [facility] Address: [address] [place] [address] Result Comment: <100 mg/dL, Optimal 100-129 mg/dL, Near optimal/above optimal 130-159 mg/dL, Borderline high 160-189 mg/dL, High>189 mg/dL, Very highSecondary prevention optimal LDL Cholesterol levels are recommended to be < 70 mg/dL Performed By: #### 2 4331-1 ####[facility] LABCLIA [id number] [place] [address] [place] [facility] [id number] [place] [address] [place]#### 44634-0 ####[facility] LABCLIA [id number] [address] [address] [place] Cholesterol in VLDL [Mass/Vol] 48 mg/dL High <30 [facility] Comment on above: Order Comment: Speci men Type: BLOOD SPECIMENOrdering Facility: [facility] Address: [address] [place] [address] Performed By: #### 2 4331-1 ####[facility] LABCLIA [id number] [place] [address] [place] [facility] [id number] [place] [address] [place]#### 62141-4 ####[facility] LABCLIA [id number] [place] [address] [place] Lipid 1996 panelon 4 Cholesterol [Mass/Vol] 162 mg/dL Normal <200 [facility] Comment on above: Order Comment: Speci men Type: BLOOD SPECIMENOrdering Facility: [facility] Address: [facility] [address] [place] [address] Result Comment: <200 mg/dL, Desirable 200-239 mg/dL, Borderline high>239 mg/dL, High Performed By: #### 2 4331-1 ####[facility] LABCLIA [id number] [place] [address] [place] [facility] [id number] [place] [address] [place]#### 60624-7 ####[facility] LABCLIA [id number] [place] [address] [place] Cholesterol in HDL [Mass/Vol] 71 mg/dL Normal >39 [facility] Comment on above: Order Comment: Speci men Type: BLOOD SPECIMENOrdering Facility: [facility] Address: [address], [place] [address] Result Comment: 40-5 9 mg/dL, Acceptable>59 mg/dL, High: Negative risk factor for coronary heart disease<40 mg/dL, Low: Positive risk factor for coronary heart disease Performed By: #### 2 4331-1 ####[facility] LABCLIA [id number] [address] [id number] [place] [address] [place]#### 78306-4 ####[facility] LABCLIA [id number] [place] [address] [place] Cholesterol in LDL [Mass/Vol] Normal [facility] Comment on above: Order Comment: Speci men Type: BLOOD SPECIMENOrdering Facility: [facility] Address: [address], [place] [address] Result Comment: Unab le to calculate due to increased Triglycerides. See LDL-Chol, Direct. Performed By: #### 2 4331-1 ####[facility] LABCLIA [id number] [id number] [place] [address] [place]#### 11001-7 ####[facility] LABCLIA [id number] [place] [address] [place] Cholesterol in LDL/Cholesterol in HDL [Mass ratio] Normal [facility] Comment on above: Order Comment: Speci men Type: BLOOD SPECIMENOrdering Facility: [facility] Address: [address], [place] [address] Result Comment: Unab le to calculate due to elevated Triglycerides.Reference:1. National Cholesterol Education Program ATP III Guideline At-A-Glance Quick Desk Reference: National Heart, Lung, and Blood [place]. National Institutes of Health. 2001: NIH Publication No. 01-3305.2. An International Atherosclerosis Society position paper: global recommendations for the management of dyslipidemia: executive summary, Atherosclerosis. 2014: 232(2):410-413. Performed By: #### 2 4331-1 ####[facility] LABCLIA [id number] [address] [id number] [address] [place]#### 84449-3 ####[facility] LABCLIA [id number] [place] [address] [place] Cholesterol in VLDL [Mass/Vol] Normal [facility] Comment on above: Order Comment: Speci men Type: BLOOD SPECIMENOrdering Facility: [facility] Address: [address], [place] [address] Result Comment: Unab le to calculate due to increased Triglycerides. See LDL-Chol, Direct. Performed By: #### 2 4331-1 ####[facility] LABCLIA [id number] [address] [id number] [place] [address] [place]#### 48936-6 ####[facility] LABCLIA [id number] [place] [address] [place] Cholesterol non HDL [Mass/Vol] 91 mg/dL Normal <130 [facility] Comment on above: Order Comment: Speci men Type: BLOOD SPECIMENOrdering Facility: [facility] Address: [address], [place] [address] Result Comment: <130 mg/dL, Optimal 130-159 mg/dL, Near optimal/above optimal 160-189 mg/dL, Borderline high 190-219 mg/dL, High>219 mg/dL, Very highSecondary prevention optimal non HDL Cholesterol levels are recommended to be <100 mg/dL Performed By: #### 2 4331-1 ####[facility] LABCLIA [id number] [address] STATES OF [facility] [id number] [place] [address] [place]#### 76727-6 ####[facility] LABCLIA [id number] [place] [address] [place] Cholesterol.total/C holesterol in HDL [Mass ratio] 2.28 {ratio} Normal <5.10 [facility] Comment on above: Order Comment: Speci men Type: BLOOD SPECIMENOrdering Facility: [facility] Address: [address] [place] [address], [place] [address] Performed By: #### 2 4331-1 ####[facility] LABCLIA [id number] [address] [facility] [id number] [place] [address] [place]#### 33713-6 ####[facility] LABCLIA [id number] [place] [address] [place] FASTING TIME 11 hrs Normal [facility] Comment on above: Order Comment: Speci men Type: BLOOD SPECIMENOrdering Facility: [facility] Address: [address] [place] [address], [place] [address] Performed By: #### 2 4331-1 ####[facility] LABCLIA [id number] [address] STATES OF [facility] [id number] [place] [address] [place]#### 02963-5 ####[facility] LABCLIA [id number] [place] [address] [place] Triglyceride [Mass/Vol] 472 mg/dL High <150 [facility] Comment on above: Order Comment: Speci men Type: BLOOD SPECIMENOrdering Facility: [facility] Address: [facility] [address], [place] [address] Result Comment: <150 mg/dL, Normal 150-199 mg/dL, Borderline high 200-499 mg/dL, High>499 mg/dL, Very high Performed By: #### 2 4331-1 ####[facility] LABCLIA [id number] [address] STATES OF [facility] [id number] [address] [place]#### 43915-6 ####[facility] LABCLIA [id number] [place] [address] [place] ALBUMIN/CREATININE RATIO, UR INEon 11-18-2023 Albumin DL <= 20 mg/L (U) [Mass/Vol] mg/dL Normal [facility] Comment on above: Order Comment: Speci men Type: URINE SPECIMENOrdering Facility: [facility] Address: [address], [place] [address] Performed By: #### U ACR ####[facility] LABCLIA [id number] [address] [place] Albumin/Creatinine (U) [Mass ratio] <15 Normal <30 [facility] Comment on above: Order Comment: Speci men Type: URINE SPECIMENOrdering Facility: [facility] Address: [address] [place] [address] Result Comment: Adul t Male and Female Nephrotic Criteria:<30 mg/g is considered normal to mildly ihwzaskcx54-526 mg/g is considered moderately increased>300 mg/g is considered severely increasedKDIGO. (2013). KDIGO 2012 Clinical Practice Guideline for the Evaluation and Management of Chronic Kidney Disease. Official Journal of the International Society of Nephrology, 3(1), 1-150. Performed By: #### U ACR ####[facility] LABCLIA [id number] [place] [address] [place] Creatinine (U) [Mass/Vol] 78.3 mg/dL Normal 20.0-300.0 [facility] Comment on above: Order Comment: Speci men Type: URINE SPECIMENOrdering Facility: [facility] Address: [address], [place] [address] Performed By: #### U ACR ####[facility] LABCLIA [id number] [address] [place] CBC W Auto Differential pane l (Bld)on 11-18-2023 Anisocytosis Ql (Bld) Present [facility] Basophils (Bld) [#/Vol] 0.00 10*3/uL [facility] Basophils/100 WBC (Bld) 0.0 % [facility] Dacrocytes LM Ql (Bld) Few [facility] Differential cell count method Nom (Bld) Manual [facility] Eosinophils (Bld) [#/Vol] 0.12 10*3/uL [facility] Eosinophils/100 WBC (Bld) 1.0 % [facility] Erythrocyte distribution width (RBC) [Ratio] 16.2 % High 11.5 - 15.0 % [facility] Hematocrit (Bld) [Volume fraction] 30.2 % Low 39.0 - 51.0 % [facility] Hemoglobin (Bld) [Mass/Vol] 9.5 g/dL Low 13.0 - 17.0 g/dL [facility] Interpretation and review of laboratory results Abnormal [facility] Lymphocytes (Bld) [#/Vol] 1.40 10*3/uL [facility] Lymphocytes/100 WBC (Bld) 12.0 % [facility] MCH (RBC) [Entitic mass] 28.0 pg 26.0 - 34.0 pg [facility] MCHC (RBC) [Mass/Vol] 31.5 g/dL 30.5 - 36.0 g/dL [facility] MCV (RBC) [Entitic vol] 89.1 fL 80.0 - 100.0 fL [facility] Monocytes (Bld) [#/Vol] 1.17 10*3/uL High [facility] Monocytes/100 WBC (Bld) 10.0 % [facility] Myelo % 5.0 % [facility] Neutrophils (Bld) [#/Vol] 8.40 10*3/uL High [facility] Neutrophils/100 WBC (Bld) 72.0 % [facility] Nucleated RBC (Bld) [#/Vol] 0.12 10*3/uL High [facility] Nucleated RBC/100 WBC (Bld) [Ratio] 1.0 % /100 WBC [facility] Ovalocytes LM Ql (Bld) Few [facility] Platelet mean volume (Bld) [Entitic vol] 9.7 fL 9.0 - 12.7 fL [facility] Platelets (Bld) [#/Vol] 192 10*3/uL [facility] Platelets Estimate (Bld) [#/Vol] Adequate [facility] Polychromasia LM Ql (Bld) Slight [facility] RBC (Bld) [#/Vol] 3.39 10*6/uL Low 4.20 - 6.00 m/uL [facility] Red Cell Morph Reviewed: see result s of individual morphologies [facility] Toxic granules LM Ql (Bld) Present [facility] WBC (Bld) [#/Vol] 11.67 10*3/uL High [facility] WBC Left Shift Ql (Bld) Present [facility] This is an appended report. These results have been appended to a previously verified report. [facility] Anisocytosis Ql (Bld) Present Normal [facility] Comment on above: Order Comment: Speci men Type: BLOOD SPECIMENOrdering Facility: [facility] Address: [address] [place], [place] [address] Performed By: #### 5 7021-8 ####[facility] CATHY DE DIOSQUECHEEТАТЬЯНА [id number] [place] [id number] [place] [address] LABORATORYCLIA [id number] [address] OF [facility] Basophils (Bld) [#/Vol] 0.00 10*3/uL Normal <0.11 [facility] Comment on above: Order Comment: Speci men Type: BLOOD SPECIMENOrdering Facility: [facility] Address: [address] [place] [address] Performed By: #### 5 7021-8 ####[facility] HOSPITALTOWNCLIA [id number] [address] LABORATORYCLIA [id number] [address] Basophils/100 WBC (Bld) 0.0 % Normal [facility] Comment on above: Order Comment: Speci men Type: BLOOD SPECIMENOrdering Facility: [facility] Address: [address] [place] [address] Performed By: #### 5 7021-8 ####[facility] MILLTOWNCLIA [id number] [address] LABORATORYCLIA [id number] [address] Dacrocytes LM Ql (Bld) Few Normal [facility] Comment on above: Order Comment: Speci men Type: BLOOD SPECIMENOrdering Facility: [facility] Address: [address] [place] [address] Performed By: #### 5 7021-8 ####[facility]ITALWNCLIA [id number] [address] LABORATORYCLIA [id number] [address] Differential cell count method Nom (Bld) Manual Normal [facility] Comment on above: Order Comment: Speci men Type: BLOOD SPECIMENOrdering Facility: [facility] Address: [address] [place] [address] Performed By: #### 5 7021-8 ####[facility]ITALWNCLIA [id number] [address] LABORATORYCLIA [id number] [place] [address] [place] Eosinophils (Bld) [#/Vol] 0.12 10*3/uL Normal <0.46 [facility] Comment on above: Order Comment: Speci men Type: BLOOD SPECIMENOrdering Facility: [facility] Address: [address] [place] [address] Performed By: #### 5 7021-8 ####[facility] MILLTOWNCLIA [id number] [address] LABORATORYCLIA [id number] [place] [address] [place] Eosinophils/100 WBC (Bld) 1.0 % Normal [facility] Comment on above: Order Comment: Speci men Type: BLOOD SPECIMENOrdering Facility: [facility] Address: [address] [place] [address] Performed By: #### 5 7021-8 ####[facility] HOSPITALTOWNCLIA [id number] [address] LABORATORYCLIA [id number] [place] [address] [place] Erythrocyte distribution width (RBC) [Ratio] 16.2 % High 11.5-15.0 [facility] Comment on above: Order Comment: Speci men Type: BLOOD SPECIMENOrdering Facility: [facility] Address: [address] [place] [address] Performed By: #### 5 7021-8 ####[facility]ITALTOWNCLIA [id number] [address] LABORATORYCLIA [id number] [place] [address] [place] Hematocrit (Bld) [Volume fraction] 30.2 % Low 39.0-51.0 [facility] Comment on above: Order Comment: Speci men Type: BLOOD SPECIMENOrdering Facility: [facility] Address: [address] [place] [address] Performed By: #### 5 7021-8 ####[facility] ANYWNCLIA [id number] [address] LABORATORYCLIA [id number] [place] [address] [place] Hemoglobin (Bld) [Mass/Vol] 9.5 g/dL Low 13.0-17.0 [facility] Comment on above: Order Comment: Speci men Type: BLOOD SPECIMENOrdering Facility: [facility] Address: [address] [place] [address] Performed By: #### 5 7021-8 ####[facility] H[facility]PITALNCLIA [id number] [address] LABORATORYCLIA [id number] [place] [address] [place] Lymphocytes (Bld) [#/Vol] 1.40 10*3/uL Normal 1.00-4.00 [facility] Comment on above: Order Comment: Speci men Type: BLOOD SPECIMENOrdering Facility: [facility] Address: [address] [place] [address] Performed By: #### 5 7021-8 ####[facility] HOSPITALNCLIA [id number] [address] LABORATORYCLIA [id number] [place] [address] [place] Lymphocytes/100 WBC (Bld) 12.0 % Normal [facility] Comment on above: Order Comment: Speci men Type: BLOOD SPECIMENOrdering Facility: [facility] Address: [address] [place] [address] Performed By: #### 5 7021-8 ####[facility] MILLTOWNCLIA [id number] [address] LABORATORYCLIA [id number] [address] MCH (RBC) [Entitic mass] 28.0 pg Normal 26.0-34.0 [facility] Comment on above: Order Comment: Speci men Type: BLOOD SPECIMENOrdering Facility: [facility] Address: [address] [place] [address] Performed By: #### 5 7021-8 ####[facility] HOSPITALNCLIA [id number] [address] LABORATORYCLIA [id number] [address] MCHC (RBC) [Mass/Vol] 31.5 g/dL Normal 30.5-36.0 [facility] Comment on above: Order Comment: Speci men Type: BLOOD SPECIMENOrdering Facility: [facility] Address: [address] [place] [address] Performed By: #### 5 7021-8 ####[facility] HOSPITALNCLIA [id number] [address] LABORATORYCLIA [id number] [address] [place] [facility] MCV (RBC) [Entitic vol] 89.1 fL Normal 80.0-100.0 [facility] Comment on above: Order Comment: Speci men Type: BLOOD SPECIMENOrdering Facility: [facility] Address: [address] [place] [address] Performed By: #### 5 7021-8 ####[facility] HOSPITALWNCLIA [id number] [address] LABORATORYCLIA [id number] [place] [address] [place] Monocytes (Bld) [#/Vol] 1.17 10*3/uL High <0.87 [facility] Comment on above: Order Comment: Speci men Type: BLOOD SPECIMENOrdering Facility: [facility] Address: [address] [place] [address] Performed By: #### 5 7021-8 ####[facility] MEDICAL CENTERLIA [id number] [address] LABORATORYCLIA [id number] [place] [address] [place] Monocytes/100 WBC (Bld) 10.0 % Normal [facility] Comment on above: Order Comment: Speci men Type: BLOOD SPECIMENOrdering Facility: [facility] Address: [address] [place] [address] Performed By: #### 5 7021-8 ####[facility] FLORIDAA [id number] [address] LABORATORYCLIA [id number] [place] [address] [place] MYELO% 5.0 % Normal [facility] Comment on above: Order Comment: Speci men Type: BLOOD SPECIMENOrdering Facility: [facility] Address: [address] [place] [address] Performed By: #### 5 7021-8 ####[facility] FLORIDAA [id number] [address] LABORATORYCLIA [id number] [place] [address] [place] Neutrophils (Bld) [#/Vol] 8.40 10*3/uL High 1.45-7.50 [facility] Comment on above: Order Comment: Speci men Type: BLOOD SPECIMENOrdering Facility: [facility] Address: [address] [place] [address] Performed By: #### 5 7021-8 ####[facility] MILLTOWNCLIA [id number] [address] LABORATORYCLIA [id number] [place] [address] [place] Neutrophils/100 WBC (Bld) 72.0 % Normal [facility] Comment on above: Order Comment: Speci men Type: BLOOD SPECIMENOrdering Facility: [facility] Address: [address] [place] [address] Performed By: #### 5 7021-8 ####[facility] HOSPITALWNCLIA [id number] [address] LABORATORYCLIA [id number] [place] [address] [place] Nucleated RBC (Bld) [#/Vol] 0.12 10*3/uL High <0.01 [facility] Comment on above: Order Comment: Speci men Type: BLOOD SPECIMENOrdering Facility: [facility] Address: [address] [place] [address] Performed By: #### 5 7021-8 ####[facility] HOSPITALWNCLIA [id number] [address] LABORATORYCLIA [id number] [place] [address] [place] Nucleated RBC/100 WBC (Bld) [Ratio] 1.0 /100 WBC Normal [facility] Comment on above: Order Comment: Speci men Type: BLOOD SPECIMENOrdering Facility: [facility] Address: [address] [id number] Performed By: #### 5 7021-8 ####[facility] HOSPITALTOWNCLIA [id number] [address] LABORATORYCLIA [id number] [place] [address] [place] Ovalocytes LM Ql (Bld) Few Normal [facility] Comment on above: Order Comment: Speci men Type: BLOOD SPECIMENOrdering Facility: [facility] Address: [address] [place] [address] Performed By: #### 5 7021-8 ####[facility] HOSPITALWNCLIA [id number] [address] LABORATORYCLIA [id number] [place] [address] [place] Platelet mean volume (Bld) [Entitic vol] 9.7 fL Normal 9.0-12.7 [facility] Comment on above: Order Comment: Speci men Type: BLOOD SPECIMENOrdering Facility: [facility] Address: [address] [place] [address] Performed By: #### 5 7021-8 ####[facility] HOSPITALWNCLIA [id number] [address] LABORATORYCLIA [id number] [place] [address] [place] Platelets (Bld) [#/Vol] 192 10*3/uL Normal 150-400 [facility] Comment on above: Order Comment: Speci men Type: BLOOD SPECIMENOrdering Facility: [facility] Address: [address] [place] [address] Performed By: #### 5 7021-8 ####[facility] MEDICAL CENTERLIA [id number] [address] LABORATORYCLIA [id number] [place] [address] [place] Platelets Estimate (Bld) [#/Vol] Adequate Normal [facility] Comment on above: Order Comment: Speci men Type: BLOOD SPECIMENOrdering Facility: [facility] Address: [address] [place] [address] Performed By: #### 5 7021-8 ####[facility] MILLTOWNCLIA [id number] [address] LABORATORYCLIA [id number] [address] Polychromasia LM Ql (Bld) Slight Normal [facility] Comment on above: Order Comment: Speci men Type: BLOOD SPECIMENOrdering Facility: [facility] Address: [address] [place] [address] Performed By: #### 5 7021-8 ####[facility] HOSPITALWCRISTOFERLIA [id number] [address] LABORATORYCLIA [id number] [place] [address] [place] RBC (Bld) [#/Vol] 3.39 10*6/uL Low 4.20-6.00 [facility] Comment on above: Order Comment: Speci men Type: BLOOD SPECIMENOrdering Facility: [facility] Address: [facility] [place] [address] Performed By: #### 5 7021-8 ####[facility] HOSPITALRAULWNCLIA [id number] [address] LABORATORYCLIA [id number] [place] [address] [place] RED CELL MORPH Reviewed: see result s of individual morphologies Normal [facility] Comment on above: Order Comment: Speci men Type: BLOOD SPECIMENOrdering Facility: [facility] Address: [facility] [place] [id number] Performed By: #### 5 7021-8 ####[facility] MILLTOWNCLIA [id number] [address] LABORATORYCLIA [id number] [place] [address] [place] Toxic granules LM Ql (Bld) Present Normal [facility] Comment on above: Order Comment: Speci men Type: BLOOD SPECIMENOrdering Facility: [facility] Address: [address] [place] [address] Performed By: #### 5 7021-8 ####[facility] HOSPITALNCLIA [id number] [address] LABORATORYCLIA [id number] [place] [address] [place] WBC (Bld) [#/Vol] 11.67 10*3/uL High 3.70-11.00 [facility] Comment on above: Order Comment: Speci men Type: BLOOD SPECIMENOrdering Facility: [facility] Address: [address] [place] [address] Performed By: #### 5 7021-8 ####[facility] FLORIDAA [id number] [address] LABORATORYCLIA [id number] [place] [address] [place] WBC Left Shift Ql (Bld) Present Normal [facility] Comment on above: Order Comment: Speci men Type: BLOOD SPECIMENOrdering Facility: [facility] Address: [address] [place] [address] Performed By: #### 5 7021-8 ####[facility] MEDICAL CENTERLIA [id number] [address] LABORATORYCLIA [id number] [place] [address] [place] CNOVSPon 11-18-2023 CNOVSP Normal [facility] CNPNon 11-18-2023 CNPN Normal [facility] Cancer Ag19-9 SerPl-aCncon 0 6-11-2024 Cancer Ag 19-9 Qn 116.0 [arb'U]/mL High <36.0 [facility] Comment on above: Order Comment: Speci men Type: BLOOD SPECIMENOrdering Facility: [facility] Address: [address] [facility] [address] Result Comment: Rust er antigen 19-9 test is used as an aid in monitoring response to treatment or recurrence in patients with established pancreatic, hepatobiliary, or gastrointestinal malignancies. Clinical correlation is required.The CA 19-9 Antigen test was performed using the [facility] Cente[facility] DXI paramagnetic particle chemiluminescent immunoassay method. Results obtained with different assay methods or kits cannot be used interchangeably. Performed By: #### 2 4108-3 ####[facility] LABCLIA [id number] [place] [address] [place] Comprehensive metabolic 2000 panelOrdered By: Asiya Dumont on 11-18-2023 Albumin [Mass/Vol] 3.5 g/dL Low 3.9 - 4.9 g/dL [facility] ALP [Catalytic activity/Vol] 171 U/L High 38 - 113 U/L [facility] ALT [Catalytic activity/Vol] 16 U/L 10 - 54 U/L [facility] Anion gap [Moles/Vol] 11 mmol/L 8 - 15 mmol/L [facility] AST [Catalytic activity/Vol] 21 U/L 14 - 40 U/L [facility] Bilirubin [Mass/Vol] 0.2 mg/dL 0.2 - 1.3 mg/dL [facility] Calcium [Mass/Vol] 9.2 mg/dL 8.5 - 10. 2 mg/dL [facility] Chloride [Moles/Vol] 109 mmol/L High 98 - 107 mmol/L [facility] CO2 [Moles/Vol] 17 mmol/L Low 22 - 30 mmol/L [facility] Creatinine [Mass/Vol] 1.25 mg/dL High 0.73 - 1.22 mg/dL [facility] GFR/1.73 sq M.predicted among non-blacks MDRD (S/P/Bld) [Vol rate/Area] 62 mL/min/{1.73_m2} - PINF [facility] Comment on above: Estimated Glomerular Filtration Rate (eGFR) is calculated using the 2020 CKD-EPI creatinine equation. This equation utilizes serum creatinine, sex, and age as parameters. The creatinine assay has traceable calibration to isotope dilution-mass spectrometry. Refer to KDIGO guidelines for clinical interpretation. In patients with unstable renal function, e.g. those with acute kidney injury, the eGFR may not accurately reflect actual GFR. Glucose [Mass/Vol] 147 mg/dL High 74 - 99 mg/dL [facility] Comment on above: The [place] Diabete s Association (ADA) provides guidance for cutoff values for fasting glucose and random glucose. The ADA defines fasting as no caloric intake for at least 8 hours. Fasting plasma glucose results between 100 to 125 mg/dL indicate increased risk for diabetes (prediabetes). Fasting plasma glucose results greater than or equal to 126 mg/dL meet the criteria for diagnosis of diabetes. In the absence of unequivocal hyperglycemia, results should be confirmed by repeat testing. In a patient with classic symptoms of hyperglycemia or hyperglycemic crisis, random plasma glucose results greater than or equal to 200 mg/dL meet the criteria for diagnosis of diabetes. Reference: Standards of Medical Care in Diabetes 2016, [place] Diabetes Association. Diabetes Care. 2016.39(Suppl 1). Interpretation and review of laboratory results Abnormal [facility] Potassium [Moles/Vol] 3.1 mmol/L Low 3.7 - 5.1 mmol/L [facility] Protein [Mass/Vol] 6.0 g/dL Low 6.3 - 8.0 g/dL [facility] Sodium [Moles/Vol] 137 mmol/L 136 - 144 mmol/L [facility] Urea nitrogen [Mass/Vol] 28 mg/dL High 9 - 24 mg/dL [facility] Comprehensive metabolic 2000 panelon 11-18-2023 Albumin [Mass/Vol] 3.5 g/dL Low 3.9-4.9 [facility] Comment on above: Order Comment: Speci men Type: BLOOD SPECIMENOrdering Facility: [facility] Address: [facility] [place]LALY [place] [id number] Performed By: #### 1 9123-9, 34975-7 ####[facility] [id number] [place] [address] [place] ALP [Catalytic activity/Vol] 171 U/L High 38-113 [facility] Comment on above: Order Comment: Speci men Type: BLOOD SPECIMENOrdering Facility: [facility] Address: [address] [place] [address] Performed By: #### 1 9123-9, 31368-0 ####[facility] MILLTOWNCLIA [id number] [place] [address] [place] ALT [Catalytic activity/Vol] 16 U/L Normal 10-54 [facility] Comment on above: Order Comment: Speci men Type: BLOOD SPECIMENOrdering Facility: [facility] Address: [address] [place] [address] Performed By: #### 1 9123-9, 14002-9 ####[facility] HOSPITALWNCLIA [id number] [place] [address] [place] Anion gap [Moles/Vol] 11 mmol/L Normal 8-15 [facility] Comment on above: Order Comment: Speci men Type: BLOOD SPECIMENOrdering Facility: [facility] Address: [address] [place] [address] Performed By: #### 1 9123-9, 54566-3 ####[facility] MEDICAL CENTERLIA [id number] [place] [address] [place] AST [Catalytic activity/Vol] 21 U/L Normal 14-40 [facility] Comment on above: Order Comment: Speci men Type: BLOOD SPECIMENOrdering Facility: [facility] Address: [address] [place] [address] Performed By: #### 1 9123-9, 92122-1 ####[facility] HOSPITALNCLIA [id number] [place] [address] [place] Bilirubin [Mass/Vol] 0.2 mg/dL Normal 0.2-1.3 [facility] Comment on above: Order Comment: Speci men Type: BLOOD SPECIMENOrdering Facility: [facility] Address: [address] [place] [address] Performed By: #### 1 9123-9, 95734-6 ####[facility] MILLTOWNCLIA [id number] [place] [address] [place] Calcium [Mass/Vol] 9.2 mg/dL Normal 8.5-10.2 [facility] Comment on above: Order Comment: Speci men Type: BLOOD SPECIMENOrdering Facility: [facility] Address: [address] [place] [address] Performed By: #### 1 9123-9, 77836-5 ####[facility] MILLTOWNCLIA [id number] [place] [address] [place] Chloride [Moles/Vol] 109 mmol/L High 98-107 [facility] Comment on above: Order Comment: Speci men Type: BLOOD SPECIMENOrdering Facility: [facility] Address: [address] [place] [address] Performed By: #### 1 9123-9, ####[facility] MILLTOWNCLIA [id number] [place] [address] [place] CO2 [Moles/Vol] 17 mmol/L Low 22-30 [facility] Comment on above: Order Comment: Speci men Type: BLOOD SPECIMENOrdering Facility: [facility] Address: [address] [place] [address] Performed By: #### 1 239, ####[facility] MILLTOWNCLIA [id number] [place] [address] [place] Creatinine [Mass/Vol] 1.25 mg/dL High 0.73-1.22 [facility] Comment on above: Order Comment: Speci men Type: BLOOD SPECIMENOrdering Facility: [facility] Address: [address] [place] [address] Performed By: #### 1 23-9, 28109-0 ####[facility] [id number] [place] [address] [place] Creatinine and Glomerular filtration rate.predicted panel (S/P/Bld) 62 mL/min/1.73m??? Normal >=60 [facility] Comment on above: Order Comment: Lay barkley Type: BLOOD SPECIMENOrdering Facility: [facility] Address: [address] [place] [address] Result Comment: Emely mated Glomerular Filtration Rate (eGFR) is calculated using the 2020 CKD-EPI creatinine equation. This equation utilizes serum creatinine, sex, and age as parameters. The creatinine assay has traceable calibration to isotope dilution-mass spectrometry. Refer to KDIGO guidelines for clinical interpretation. In patients with unstable renal function, e.g. those with acute kidney injury, the eGFR may not accurately reflect actual GFR. Performed By: #### 1 9123-9, 28617-6 ####[facility] [id number] [place] [address] [place] Glucose [Mass/Vol] 147 mg/dL High 74-99 [facility] Comment on above: Order Comment: Lay barkley Type: BLOOD SPECIMENOrdering Facility: [facility] Address: [address] [place] [address] Result Comment: The [place] Diabetes Association (ADA) provides guidance for cutoff values for fasting glucose and random glucose. The ADA defines fasting as no caloric intake for at least 8 hours. Fasting plasma glucose results between 100 to 125 mg/dL indicate increased risk for diabetes (prediabetes).Fasting plasma glucose results greater than or equal to 126 mg/dL meet the criteria for diagnosis of diabetes. In the absence of unequivocal hyperglycemia, results should be confirmed by repeat testing. In a patient with classic symptoms of hyperglycemia or hyperglycemic crisis, random plasma glucose results greater than or equal to 200 mg/dL meet the criteria for diagnosis of diabetes.Reference: Standards of Medical Care in Diabetes 2016, [place] Diabetes Association. Diabetes Care. 2016.39(Suppl 1). Performed By: #### 1 9123-9, 19555-6 ####[facility] [id number] [place] [address] [place] Potassium [Moles/Vol] 3.1 mmol/L Low 3.7-5.1 [facility] Comment on above: Order Comment: Speci men Type: BLOOD SPECIMENOrdering Facility: [facility] Address: [address] [place] [address] Performed By: #### 1 9123-9, 78353-7 ####[facility] HOSPITALRAULWТАТЬЯНА [id number] [place] [address] [place] Protein [Mass/Vol] 6.0 g/dL Low 6.3-8.0 [facility] Comment on above: Order Comment: Speci men Type: BLOOD SPECIMENOrdering Facility: [facility] Address: [address] [place] [address] Performed By: #### 1 9123-9, 09648-5 ####[facility] HOSPITALТАТЬЯНА [id number] [place] [address] [place] Sodium [Moles/Vol] 137 mmol/L Normal 136-144 [facility] Comment on above: Order Comment: Speci men Type: BLOOD SPECIMENOrdering Facility: [facility] Address: [address] [place] [address] Performed By: #### 1 9123-9, 52904-2 ####[facility] HOSPITALТАТЬЯНА [id number] [place] [address] [place] Urea nitrogen [Mass/Vol] 28 mg/dL High 9-24 [facility] Comment on above: Order Comment: Speci men Type: BLOOD SPECIMENOrdering Facility: [facility] Address: [address] [place] [address] Performed By: #### 1 9123-9, 00443-8 ####[facility] HOSPITALNCLIA [id number] [place] [address] [place] HbA1c (Bld)on 11-18-2023 Average glucose Estimated from glycated hemoglobin (Bld) [Mass/Vol] 126 mg/dL [facility] Comment on above: eAG: (Estimated aver age glucose) is a calculated value from HgbA1c and is architectural representative of the average blood glucose level in the last 2-3 month period. HbA1c (Bld) [Mass fraction] 6.0 % High 4.3 - 5.6 % [facility] Comment on above: [place] Diabetes As sociation guidelines indicate that patients with HgbA1c in the range 5.7-6.4% are at increased risk for development of diabetes, and intervention by lifestyle modification may be beneficial. HgbA1c greater or equal to 6.5% is considered diagnostic of diabetes. Interpretation and review of laboratory results Abnormal [facility] Average glucose Estimated from glycated hemoglobin (Bld) [Mass/Vol] 126 mg/dL Normal [facility] Comment on above: Order Comment: Lay barkley Type: BLOOD SPECIMENOrdering Facility: [facility] Address: [facility] HospitalRuben [place] [address] Result Comment: eAG: (Estimated average glucose) is a calculated value from HgbA1c and is architectural representative of the average blood glucose level in the last 2-3 month period. Performed By: #### 5 5454-3 ####[facility] WESTIA [id number] [address] STATES [facility] HbA1c (Bld) [Mass fraction] 6.0 % High 4.3-5.6 [facility] Comment on above: Order Comment: Lay barkley Type: BLOOD SPECIMENOrdering Facility: [facility] Address: [address] [place] [address] Result Comment: [place] Diabetes Association guidelines indicate that patients with HgbA1c in the range 5.7-6.4% are at increased risk for development of diabetes, and intervention by lifestyle modification may be beneficial. HgbA1c greater or equal to 6.5% is considered diagnostic of diabetes. Performed By: #### 5 5454-3 ####[facility] LABCLIA [id number] [place] [address] [place] MAGNESIUM BLDon 11-18-2023 Magnesium [Mass/Vol] 1.8 mg/dL 1.7 - 2.3 mg/dL [facility] Magnesium SerPl-mCncon 11-17 Magnesium [Mass/Vol] 1.8 mg/dL Normal 1.7-2.3 [facility] Comment on above: Order Comment: Speci men Type: BLOOD SPECIMENOrdering Facility: [facility] Address: [address] [place] [address] Performed By: #### 1 9123-9, 09951-5 ####[facility] [id number] [place] [address] [place] Magnesium [Mass/Vol]on 11-17 Interpretation and review of laboratory results Normal [facility] Urinalysis complete panel (U )on 11-18-2023 Bacteria LM.HPF (Urine sed) [#/Area] Negative Normal Negative [facility] Comment on above: Order Comment: Speci men Type: URINE SPECIMENOrdering Facility: [facility] Address: [address] [address] Performed By: #### 2 4356-8 ####[facility] LABCLIA [id number] [place] [address] [place] Bilirubin Ql (U) Negative Normal Negative [facility] Comment on above: Order Comment: Speci men Type: URINE SPECIMENOrdering Facility: [facility] Address: [address] [place] [address] Performed By: #### 2 4356-8 ####[facility] LABCLIA [id number] [place] [address] [place] Clarity (Unsp spec) Clear Normal Clear [facility] Comment on above: Order Comment: Speci men Type: URINE SPECIMENOrdering Facility: [facility] Address: [address] [place] [address] Performed By: #### 2 4356-8 ####[facility] LABCLIA [id number] [facility] [place] [place] [address] [place] Color (U) Yellow Normal Yellow [facility] Comment on above: Order Comment: Speci men Type: URINE SPECIMENOrdering Facility: [facility] Address: [place] [address] Performed By: #### 2 4356-8 ####[facility] LABCLIA [id number] [place] [address] [place] Epithelial cells LM.HPF (Urine sed) [#/Area] None Seen Normal [facility] Comment on above: Order Comment: Speci men Type: URINE SPECIMENOrdering Facility: [facility] Address: [place] [address] Performed By: #### 2 4356-8 ####[facility] LABCLIA [id number] [place] [address] [place] Glucose Test strip (U) [Mass/Vol] Trace Abnormal Negative [facility] Comment on above: Order Comment: Speci men Type: URINE SPECIMENOrdering Facility: [facility] Address: [place] [address] Performed By: #### 2 4356-8 ####[facility] LABCLIA [id number] [place] [address] [place] Granular casts (Urine sed) [#/Area] 4-10 /LPF Abnormal 0 /LPF [facility] Comment on above: Order Comment: Speci men Type: URINE SPECIMENOrdering Facility: [facility] Address: [place] [address] Performed By: #### 2 4356-8 ####[facility] LABCLIA [id number] [place] [address] [place] Hemoglobin Ql (U) Negative Normal Negative [facility] Comment on above: Order Comment: Speci men Type: URINE SPECIMENOrdering Facility: [facility] Address: [facility] [place] [address] Performed By: #### 2 4356-8 ####[facility] LABCLIA [id number] [address] [address] [place] Hyaline casts (Urine sed) [#/Area] 1-3 /LPF Abnormal 0 /LPF [facility] Comment on above: Order Comment: Speci men Type: URINE SPECIMENOrdering Facility: [facility] [place] [address] Performed By: #### 2 4356-8 ####[facility] LABCLIA [id number] [place] [address] [place] Ketones Ql (U) Negative Normal Negative [facility] Comment on above: Order Comment: Speci men Type: URINE SPECIMENOrdering Facility: [facility] Address: [facility] [place] [address] Performed By: #### 2 4356-8 ####[facility] LABCLIA [id number] [place] [address] [place] Leukocyte esterase Test strip Ql (U) Negative Normal Negative [facility] Comment on above: Order Comment: Speci men Type: URINE SPECIMENOrdering Facility: [facility] Address: [facility] [place] [address] Performed By: #### 2 4356-8 ####[facility] LABCLIA [id number] [address] [address] [place] Nitrite Ql (U) Negative Normal Negative [facility] Comment on above: Order Comment: Speci men Type: URINE SPECIMENOrdering Facility: [facility] Address: [facility] [place] [address] Performed By: #### 2 4356-8 ####[facility] LABCLIA [id number] [place] [address] [place] pH (U) 5.5 [pH] Normal <8.5 [facility] Comment on above: Order Comment: Speci men Type: URINE SPECIMENOrdering Facility: [facility] Address: [address] [place] [address] Performed By: #### 2 4356-8 ####[facility] LABCLIA [id number] [place] [address] [place] Protein (U) [Mass/Vol] Trace Abnormal Negative [facility] Comment on above: Order Comment: Speci men Type: URINE SPECIMENOrdering Facility: [facility] Address: [facility]frainRub[facility] [place] [address] Performed By: #### 2 4356-8 ####[facility] LABCLIA [id number] [place] [address] [place] RBC LM.HPF (Urine sed) [#/Area] 0-2 /HPF Normal 0-2 /HPF [facility] Comment on above: Order Comment: Speci men Type: URINE SPECIMENOrdering Facility: [facility] Address: [address] [place] [address] Performed By: #### 2 4356-8 ####[facility] LABIA [id number] [place] [address] [place] Specific gravity (U) [Rel density] 1.014 Normal 1.005-1.03 0 [facility] Comment on above: Order Comment: Speci men Type: URINE SPECIMENOrdering Facility: [facility] Address: [address] [place] [address] Performed By: #### 2 4356-8 ####[facility] LABCLIA [id number] [place] [address] [place] Urobilinogen Ql (U) 0.2 EU/dL Normal 0.2-1.0 EU/dL [facility] Comment on above: Order Comment: Speci men Type: URINE SPECIMENOrdering Facility: [facility] Address: [place] [address] Performed By: #### 2 4356-8 ####[facility] LABCLIA [id number] [place] [address] [place] WBC LM.HPF (Urine sed) [#/Area] 0-5 /HPF Normal 0-5 /HPF [facility] Comment on above: Order Comment: Speci men Type: URINE SPECIMENOrdering Facility: [facility] Address: Bria Cause[place] [address] Performed By: #### 2 4356-8 ####[facility] LABCLIA [id number] [place] [address] [place] CBC W Auto Differential pane l (Bld)on 11-04-2023 Anisocytosis Ql (Bld) Present Normal [facility] Comment on above: Order Comment: Speci men Type: BLOOD SPECIMENOrdering Facility: [facility] Address: [address] [place] [address] Performed By: #### 5 7021-8 ####[facility] HOSPITALNCA [id number] [address] LABORATORYCLIA [id number] [place] [address] [place] Basophils (Bld) [#/Vol] 0.16 10*3/uL High <0.11 [facility] Comment on above: Order Comment: Speci men Type: BLOOD SPECIMENOrdering Facility: [facility] Address: [address] [place] [address] Performed By: #### 5 7021-8 ####[facility] HOSPITALNCLIA [id number] [address] LABORATORYCLIA [id number] [place] [address] [place] Basophils/100 WBC (Bld) 1.0 % Normal [facility] Comment on above: Order Comment: Speci men Type: BLOOD SPECIMENOrdering Facility: [facility] Address: [address] [place] [address] Performed By: #### 5 7021-8 ####[facility] MILLTOWNCLIA [id number] [address] LABORATORYCLIA [id number] [place] [address] [place] Differential cell count method Nom (Bld) Manual Normal [facility] Comment on above: Order Comment: Speci men Type: BLOOD SPECIMENOrdering Facility: [facility] Address: [address] [place] [address] Performed By: #### 5 7021-8 ####[facility]PITALWNCLIA [id number] [address] LABORATORYCLIA [id number] [place] [address] [place] Eosinophils (Bld) [#/Vol] 0.16 10*3/uL Normal <0.46 [facility] Comment on above: Order Comment: Speci men Type: BLOOD SPECIMENOrdering Facility: [facility] Address: [address] [place] [address] Performed By: #### 5 7021-8 ####[facility] MILLTOWNCLIA [id number] [address] LABORATORYCLIA [id number] [place] [address] [place] Eosinophils/100 WBC (Bld) 1.0 % Normal [facility] Comment on above: Order Comment: Speci men Type: BLOOD SPECIMENOrdering Facility: [facility] Address: [address] [place] [address] Performed By: #### 5 7021-8 ####[facility] MILLTOWNCLIA [id number] [address] LABORATORYCLIA [id number] [place] [address] [place] Erythrocyte distribution width (RBC) [Ratio] 16.4 % High 11.5-15.0 [facility] Comment on above: Order Comment: Speci men Type: BLOOD SPECIMENOrdering Facility: [facility] Address: [address] [place] [address] Performed By: #### 5 7021-8 ####[facility] HOSPITALWCRISTOFERLIA [id number] [address] LABORATORYCLIA [id number] [place] [address] [place] [facility] Hematocrit (Bld) [Volume fraction] 31.8 % Low 39.0-51.0 [facility] Comment on above: Order Comment: Speci men Type: BLOOD SPECIMENOrdering Facility: [facility] Address: [address] [place] [address] Performed By: #### 5 7021-8 ####[facility] HOSPITALTOWNCLIA [id number] [address] LABORATORYCLIA [id number] [place] [address] [place] Hemoglobin (Bld) [Mass/Vol] 10.3 g/dL Low 13.0-17.0 [facility] Comment on above: Order Comment: Speci men Type: BLOOD SPECIMENOrdering Facility: [facility] Address: [address] [place] [address] Performed By: #### 5 7021-8 ####[facility] MILLTOWNCLIA [id number] [address] LABORATORYCLIA [id number] [place] [address] [place] Lymphocytes (Bld) [#/Vol] 1.45 10*3/uL Normal 1.00-4.00 [facility] Comment on above: Order Comment: Speci men Type: BLOOD SPECIMENOrdering Facility: [facility] Address: [address] [place] [address] Performed By: #### 5 7021-8 ####[facility] MILLTOWNCLIA [id number] [address] LABORATORYCLIA [id number] [place] [address] [place] Lymphocytes/100 WBC (Bld) 9.0 % Normal [facility] Comment on above: Order Comment: Speci men Type: BLOOD SPECIMENOrdering Facility: [facility] Address: [address] [place] [address] Performed By: #### 5 7021-8 ####[facility] HOSPITALTOWNCLIA [id number] [address] LABORATORYCLIA [id number] [address] STATES OF [facility] MCH (RBC) [Entitic mass] 29.0 pg Normal 26.0-34.0 [facility] Comment on above: Order Comment: Speci men Type: BLOOD SPECIMENOrdering Facility: [facility] Address: [address] [place] [address] Performed By: #### 5 7021-8 ####[facility] MILLTOWNCLIA [id number] [address] LABORATORYCLIA [id number] [place] [address] [place] [facility] MCHC (RBC) [Mass/Vol] 32.4 g/dL Normal 30.5-36.0 [facility] Comment on above: Order Comment: Speci men Type: BLOOD SPECIMENOrdering Facility: [facility] Address: [address] [place] [address] Performed By: #### 5 7021-8 ####[facility] MILLTOWNCLIA [id number] [address] LABORATORYCLIA [id number] [place] [address] [place] MCV (RBC) [Entitic vol] 89.6 fL Normal 80.0-100.0 [facility] Comment on above: Order Comment: Speci men Type: BLOOD SPECIMENOrdering Facility: [facility] Address: [address] [place] [address] Performed By: #### 5 7021-8 ####[facility] HOSPITALNCLIA [id number] [address] LABORATORYCLIA [id number] [address] [place] Metamyelocytes/100 WBC (Bld) 1.0 % Normal [facility] Comment on above: Order Comment: Speci men Type: BLOOD SPECIMENOrdering Facility: [facility] Address: [address] [place] [address] Performed By: #### 5 7021-8 ####[facility] HOSPITALWNCLIA [id number] [address] LABORATORYCLIA [id number] [address] STATES [facility] Monocytes (Bld) [#/Vol] 0.64 10*3/uL Normal <0.87 [facility] Comment on above: Order Comment: Speci men Type: BLOOD SPECIMENOrdering Facility: [facility] Address: [address] [place] [address] Performed By: #### 5 7021-8 ####[facility] MILLTOWNCLIA [id number] [address] LABORATORYCLIA [id number] [place] [address] [place] Monocytes/100 WBC (Bld) 4.0 % Normal [facility] Comment on above: Order Comment: Speci men Type: BLOOD SPECIMENOrdering Facility: [facility] Address: [address] [place] [address] Performed By: #### 5 7021-8 ####[facility] MILLTOWNCLIA [id number] [address] LABORATORYCLIA [id number] [place] [address] [place] MYELO% 2.0 % Normal [facility] Comment on above: Order Comment: Speci men Type: BLOOD SPECIMENOrdering Facility: [facility] Address: [address] [place] [address] Performed By: #### 5 7021-8 ####[facility] HOSPITALWNCLIA [id number] [address] LABORATORYCLIA [id number] [place] [address] [place] Neutrophils (Bld) [#/Vol] 13.17 10*3/uL High 1.45-7.50 [facility] Comment on above: Order Comment: Speci men Type: BLOOD SPECIMENOrdering Facility: [facility] Address: [address] [place] [address] Performed By: #### 5 7021-8 ####[facility] HOSPITALWNCLIA [id number] [address] LABORATORYCLIA [id number] [place] [address] [place] Neutrophils/100 WBC (Bld) 82.0 % Normal [facility] Comment on above: Order Comment: Speci men Type: BLOOD SPECIMENOrdering Facility: [facility] Address: [address] [place] [address] Performed By: #### 5 7021-8 ####[facility] HOSPITALRAULWITALOA [id number] [address] LABORATORYCLIA [id number] [place] [address] [place] Nucleated RBC (Bld) [#/Vol] 10*3/uL Normal <0.01 [facility] Comment on above: Order Comment: Speci men Type: BLOOD SPECIMENOrdering Facility: [facility] Address: [address] [place] [address] Performed By: #### 5 7021-8 ####[facility] HOSPITALWCRISTOFERLIA [id number] [address] LABORATORYCLIA [id number] [place] [address] [place] Nucleated RBC/100 WBC (Bld) [Ratio] 0.0 /100 WBC Normal [facility] Comment on above: Order Comment: Speci men Type: BLOOD SPECIMENOrdering Facility: [facility] Address: [address] [place] [address] Performed By: #### 5 7021-8 ####[facility] HOSPITALANDIA [id number] [address] LABORATORYCLIA [id number] [place] [address] [place] Ovalocytes LM Ql (Bld) Few Normal [facility] Comment on above: Order Comment: Speci men Type: BLOOD SPECIMENOrdering Facility: [facility] Address: [address] [place] [address] Performed By: #### 5 7021-8 ####[facility] HOSPITALWCRISTOFERLIA [id number] [address] LABORATORYCLIA [id number] [place] [address] [place] Platelet mean volume (Bld) [Entitic vol] 9.8 fL Normal 9.0-12.7 [facility] Comment on above: Order Comment: Speci men Type: BLOOD SPECIMENOrdering Facility: [facility] Address: [address] [place] [address] Performed By: #### 5 7021-8 ####[facility] MILLTOWNCLIA [id number] [address] LABORATORYCLIA [id number] [place] [address] [place] Platelets (Bld) [#/Vol] 267 10*3/uL Normal 150-400 [facility] Comment on above: Order Comment: Speci men Type: BLOOD SPECIMENOrdering Facility: [facility] Address: [address] [place] [address] Performed By: #### 5 7021-8 ####[facility] HOSPITALWNCLIA [id number] [address] LABORATORYCLIA [id number] [place] [address] [place] Platelets Estimate (Bld) [#/Vol] Adequate Normal [facility] Comment on above: Order Comment: Speci men Type: BLOOD SPECIMENOrdering Facility: [facility] Address: [address] [place] [address] Performed By: #### 5 7021-8 ####[facility] MILLWNCLIA [id number] [address] LABORATORYCLIA [id number] [place] [address] [place] Polychromasia LM Ql (Bld) Slight Normal [facility] Comment on above: Order Comment: Speci men Type: BLOOD SPECIMENOrdering Facility: [facility] Address: [address] [place] [address] Performed By: #### 5 7021-8 ####[facility] VARAULWNCLIA [id number] [address] LABORATORYCLIA [id number] [place] [address] [place] RBC (Bld) [#/Vol] 3.55 10*6/uL Low 4.20-6.00 [facility] Comment on above: Order Comment: Speci men Type: BLOOD SPECIMENOrdering Facility: [facility] Address: [address] [place] [address] Performed By: #### 5 7021-8 ####[facility] HOSPITALWNCLIA [id number] [address] LABORATORYCLIA [id number] [place] [address] [place] RED CELL MORPH Reviewed: see result s of individual morphologies Normal [facility] Comment on above: Order Comment: Speci men Type: BLOOD SPECIMENOrdering Facility: [facility] Address: [address] [place] [address] Performed By: #### 5 7021-8 ####[facility] VAKATYLIA [id number] [address] LABORATORYCLIA [id number] [place] [address] [place] WBC (Bld) [#/Vol] 16.06 10*3/uL High 3.70-11.00 [facility] Comment on above: Order Comment: Speci men Type: BLOOD SPECIMENOrdering Facility: [facility] Address: [address] [place] [address] Performed By: #### 5 7021-8 ####[facility] HOSPITALNCLIA [id number] [address] LABORATORYCLIA [id number] [place] [address] [place] WBC Left Shift Ql (Bld) Present Normal [facility] Comment on above: Order Comment: Speci men Type: BLOOD SPECIMENOrdering Facility: [facility] Address: [address] [place] [address] Performed By: #### 5 7021-8 ####[facility] [id number] [address] LABORATORYCLIA [id number] [place] [address] [place] CNOVSPon 11-04-2023 CNOVSP Normal [facility] Cancer Ag19-9 SerPl-aCncon 0 11-04-2023 Cancer Ag 19-9 Qn 167.0 [arb'U]/mL High <36.0 [facility] Comment on above: Order Comment: Speci men Type: BLOOD SPECIMENOrdering Facility: [facility] Address: [address] [place] [address] Result Comment: Rust er antigen 19-9 test is used as an aid in monitoring response to treatment or recurrence in patients with established pancreatic, hepatobiliary, or gastrointestinal malignancies. Clinical correlation is required.The CA 19-9 Antigen test was performed using the Álvaro Grawn [employer] DXI paramagnetic particle chemiluminescent immunoassay method. Results obtained with different assay methods or kits cannot be used interchangeably. Performed By: #### 2 4108-3 ####[facility] LABCLIA [id number] [place] [address] [facility] [place] Comprehensive metabolic 2000 panelOrdered By: Vaishali Araiza on 11-04-2023 Albumin [Mass/Vol] 3.3 g/dL Low 3.9 - 4.9 g/dL [facility] ALP [Catalytic activity/Vol] 303 U/L High 38 - 113 U/L [facility] ALT [Catalytic activity/Vol] 33 U/L 10 - 54 U/L [facility] Anion gap [Moles/Vol] 12 mmol/L 9 - 18 mmol/L [facility] AST [Catalytic activity/Vol] 58 U/L High 14 - 40 U/L [facility] Bilirubin [Mass/Vol] 0.2 mg/dL 0.2 - 1.3 mg/dL [facility] Calcium [Mass/Vol] 9.2 mg/dL 8.5 - 10. 2 mg/dL [facility] Chloride [Moles/Vol] 113 mmol/L High 97 - 105 mmol/L [facility] CO2 [Moles/Vol] 15 mmol/L Low 22 - 30 mmol/L [facility] Creatinine [Mass/Vol] 1.42 mg/dL High 0.73 - 1.22 mg/dL [facility] GFR/1.73 sq M.predicted among non-blacks MDRD (S/P/Bld) [Vol rate/Area] 53 mL/min/{1.73_m2} Low - PINF [facility] Comment on above: Estimated Glomerular Filtration Rate (eGFR) is calculated using the 2020 CKD-EPI creatinine equation. This equation utilizes serum creatinine, sex, and age as parameters. The creatinine assay has traceable calibration to isotope dilution-mass spectrometry. Refer to KDIGO guidelines for clinical interpretation. In patients with unstable renal function, e.g. those with acute kidney injury, the eGFR may not accurately reflect actual GFR. Glucose [Mass/Vol] 161 mg/dL High 74 - 99 mg/dL [facility] Comment on above: The [place] Diabete s Association (ADA) provides guidance for cutoff values for fasting glucose and random glucose. The ADA defines fasting as no caloric intake for at least 8 hours. Fasting plasma glucose results between 100 to 125 mg/dL indicate increased risk for diabetes (prediabetes). Fasting plasma glucose results greater than or equal to 126 mg/dL meet the criteria for diagnosis of diabetes. In the absence of unequivocal hyperglycemia, results should be confirmed by repeat testing. In a patient with classic symptoms of hyperglycemia or hyperglycemic crisis, random plasma glucose results greater than or equal to 200 mg/dL meet the criteria for diagnosis of diabetes. Reference: Standards of Medical Care in Diabetes 2016, [place] [employer]. Diabetes Care. 2016.39(Suppl 1). Interpretation and review of laboratory results Abnormal [facility] Potassium [Moles/Vol] 2.7 mmol/L Low 3.7 - 5.1 mmol/L [facility] Protein [Mass/Vol] 5.7 g/dL Low 6.3 - 8.0 g/dL [facility] Sodium [Moles/Vol] 140 mmol/L 136 - 144 mmol/L [facility] Urea nitrogen [Mass/Vol] 21 mg/dL 9 - 24 mg/dL [facility] metabolic 2000 panelon 11-04-2023 Albumin [Mass/Vol] 3.3 g/dL Low 3.9-4.9 [facility] Comment on above: Order Comment: Speci men Type: BLOOD SPECIMENOrdering Facility: [facility] Address: [address] [place], [place] [address] Performed By: #### 2 4323-8, ####[facility] HOSPITALТАТЬЯНА [id number] [place] [address] [place] ALP [Catalytic activity/Vol] 303 U/L High 38-113 [facility] Comment on above: Order Comment: Speci men Type: BLOOD SPECIMENOrdering Facility: [facility] Address: [address] [place], [place] [address] Performed By: #### 2 4323-8, ####[facility] HOSPITALТАТЬЯНА [id number] [place] [address] [place] ALT [Catalytic activity/Vol] 33 U/L Normal 10-54 [facility] Comment on above: Order Comment: Speci men Type: BLOOD SPECIMENOrdering Facility: [facility] Address: [address] [place] [address] Performed By: #### 2 4323-8, ####[facility] HOSPITALITALOA [id number] [place] [address] [place] Anion gap [Moles/Vol] 12 mmol/L Normal 9-18 [facility] Comment on above: Order Comment: Speci men Type: BLOOD SPECIMENOrdering Facility: [facility] Address: [address] [place] [address] Performed By: #### 2 4323-8, ####[facility] CATHY MILLTOWNCLIA [id number] [place] [address] [place] AST [Catalytic activity/Vol] 58 U/L High 14-40 [facility] Comment on above: Order Comment: Speci men Type: BLOOD SPECIMENOrdering Facility: [facility] Address: [address] [place] [address] Performed By: #### 2 432-8, ####[facility] MILLTOWNCLIA [id number] [place] [address] [place] Bilirubin [Mass/Vol] 0.2 mg/dL Normal 0.2-1.3 [facility] Comment on above: Order Comment: Speci men Type: BLOOD SPECIMENOrdering Facility: [facility] Address: [address] [place] [address] Performed By: #### 2 432-8, ####[facility] MILLTOWNCLIA [id number] [place] [address] [place] Calcium [Mass/Vol] 9.2 mg/dL Normal 8.5-10.2 [facility] Comment on above: Order Comment: Speci men Type: BLOOD SPECIMENOrdering Facility: [facility] Address: [address] [place] [address] Performed By: #### 2 4328, ####[facility] MILLTOWNCLIA [id number] [place] [address] [place] Chloride [Moles/Vol] 113 mmol/L High 97-105 [facility] Comment on above: Order Comment: Speci men Type: BLOOD SPECIMENOrdering Facility: [facility] Address: [address] [place] [address] Performed By: #### 2 4323-8, ####[facility] [id number] [place] [address] [place] CO2 [Moles/Vol] 15 mmol/L Low 22-30 [facility] Comment on above: Order Comment: Speci men Type: BLOOD SPECIMENOrdering Facility: [facility] Address: [address] [place] [address] Performed By: #### 2 4323-8, ####[facility] [id number] [place] [address] [place] Creatinine [Mass/Vol] 1.42 mg/dL High 0.73-1.22 [facility] Comment on above: Order Comment: Speci men Type: BLOOD SPECIMENOrdering Facility: [facility] Address: [address] [place] [address] Performed By: #### 2 4323-8, ####[facility] [id number] [place] [address] [place] Creatinine and Glomerular filtration rate.predicted panel (S/P/Bld) 53 mL/min/1.73m??? Low >=60 [facility] Comment on above: Order Comment: Speci men Type: BLOOD SPECIMENOrdering Facility: [facility] Address: [address] [place] [address] Result Comment: Emely mated Glomerular Filtration Rate (eGFR) is calculated using the 2020 CKD-EPI creatinine equation. This equation utilizes serum creatinine, sex, and age as parameters. The creatinine assay has traceable calibration to isotope dilution-mass spectrometry. Refer to KDIGO guidelines for clinical interpretation. In patients with unstable renal function, e.g. those with acute kidney injury, the eGFR may not accurately reflect actual GFR. Performed By: #### 2 4323-8, ####[facility] [id number] [place] [address] [place] Glucose [Mass/Vol] 161 mg/dL High 74-99 [facility] Comment on above: Order Comment: Lay barkley Type: BLOOD SPECIMENOrdering Facility: [facility] Address: [address] [place], [place] [id number] Result Comment: The [place] Diabetes Association (ADA) provides guidance for cutoff values for fasting glucose and random glucose. The ADA defines fasting as no caloric intake for at least 8 hours. Fasting plasma glucose results between 100 to 125 mg/dL indicate increased risk for diabetes (prediabetes).Fasting plasma glucose results greater than or equal to 126 mg/dL meet the criteria for diagnosis of diabetes. In the absence of unequivocal hyperglycemia, results should be confirmed by repeat testing. In a patient with classic symptoms of hyperglycemia or hyperglycemic crisis, random plasma glucose results greater than or equal to 200 mg/dL meet the criteria for diagnosis of diabetes.Reference: Standards of Medical Care in Diabetes 2016, [place] Diabetes Association. Diabetes Care. 2016.39(Suppl 1). Performed By: #### 2 4323-8, 78476-1 ####[facility] TYLER [id number] [place] [address] [place] Potassium [Moles/Vol] 2.7 mmol/L Low 3.7-5.1 [facility] Comment on above: Order Comment: Lay barkley Type: BLOOD SPECIMENOrdering Facility: [facility] Address: [address] [place], [place] [id number] Performed By: #### 2 4323-8, ####[facility] TYLER [id number] [place] [address] [place] Protein [Mass/Vol] 5.7 g/dL Low 6.3-8.0 [facility] Comment on above: Order Comment: Lay barkley Type: BLOOD SPECIMENOrdering Facility: [facility] Address: [address] [place], [place] [id number] Performed By: #### 2 4323-8, ####[facility] [id number] [place] [address] [place] Sodium [Moles/Vol] 140 mmol/L Normal 136-144 [facility] Comment on above: Order Comment: Speci men Type: BLOOD SPECIMENOrdering Facility: [facility] Address: [address] [place] [address] Performed By: #### 2 4323-8, ####[facility] [id number] [place] [address] [place] Urea nitrogen [Mass/Vol] 21 mg/dL Normal 9-24 [facility] Comment on above: Order Comment: Speci men Type: BLOOD SPECIMENOrdering Facility: [facility] Address: [address] [place] [address] Performed By: #### 2 4323-8, ####[facility] [id number] [place] [address] [place] MAGNESIUM BLDon 11-04-2023 Magnesium [Mass/Vol] 1.9 mg/dL 1.7 - 2.3 mg/dL [facility] Magnesium SerPl-mCncon 11-03 Magnesium [Mass/Vol] 1.9 mg/dL Normal 1.7-2.3 [facility] Comment on above: Order Comment: Speci men Type: BLOOD SPECIMENOrdering Facility: [facility] Address: [address] [place] [address] Performed By: #### 2 4323-8, ####[facility] [id number] [place] [address] [place] Magnesium [Mass/Vol]on 11-03 Interpretation and review of laboratory results Normal [facility] No Panel InformationOrdered By: Vaishali Araiza on 11-04-2023 [facility] CNPNon 10-26-2023 CNPN Normal [facility] metabolic 2000 panelOrdered By: Asiya Dumont on 10-23-2023 Albumin [Mass/Vol] 3.7 g/dL Low 3.9 - 4.9 g/dL [facility] ALP [Catalytic activity/Vol] 175 U/L High 38 - 113 U/L [facility] ALT [Catalytic activity/Vol] 26 U/L 10 - 54 U/L [facility] Anion gap [Moles/Vol] 10 mmol/L 9 - 18 mmol/L [facility] AST [Catalytic activity/Vol] 40 U/L 14 - 40 U/L [facility] Bilirubin [Mass/Vol] 0.3 mg/dL 0.2 - 1.3 mg/dL [facility] Calcium [Mass/Vol] 9.5 mg/dL 8.5 - 10. 2 mg/dL [facility] Chloride [Moles/Vol] 109 mmol/L High 97 - 105 mmol/L [facility] CO2 [Moles/Vol] 19 mmol/L Low 22 - 30 mmol/L [facility] Creatinine [Mass/Vol] 1.32 mg/dL High 0.73 - 1.22 mg/dL [facility] GFR/1.73 sq M.predicted among non-blacks MDRD (S/P/Bld) [Vol rate/Area] 58 mL/min/{1.73_m2} Low - PINF [facility] Comment on above: Estimated Glomerular Filtration Rate (eGFR) is calculated using the 2020 CKD-EPI creatinine equation. This equation utilizes serum creatinine, sex, and age as parameters. The creatinine assay has traceable calibration to isotope dilution-mass spectrometry. Refer to KDIGO guidelines for clinical interpretation. In patients with unstable renal function, e.g. those with acute kidney injury, the eGFR may not accurately reflect actual GFR. Glucose [Mass/Vol] 140 mg/dL High 74 - 99 mg/dL [facility] Comment on above: The [place] Diabete s Association (ADA) provides guidance for cutoff values for fasting glucose and random glucose. The ADA defines fasting as no caloric intake for at least 8 hours. Fasting plasma glucose results between 100 to 125 mg/dL indicate increased risk for diabetes (prediabetes). Fasting plasma glucose results greater than or equal to 126 mg/dL meet the criteria for diagnosis of diabetes. In the absence of unequivocal hyperglycemia, results should be confirmed by repeat testing. In a patient with classic symptoms of hyperglycemia or hyperglycemic crisis, random plasma glucose results greater than or equal to 200 mg/dL meet the criteria for diagnosis of diabetes. Reference: Standards of Medical Care in Diabetes 2016, [place] Diabetes Association. Diabetes Care. 2016.39(Suppl 1). Interpretation and review of laboratory results Abnormal [facility] Potassium [Moles/Vol] 3.7 mmol/L 3.7 - 5.1 mmol/L [facility] Protein [Mass/Vol] 6.5 g/dL 6.3 - 8.0 g/dL [facility] Sodium [Moles/Vol] 138 mmol/L 136 - 144 mmol/L [facility] Urea nitrogen [Mass/Vol] 43 mg/dL High 9 - 24 mg/dL [facility] Comprehensive metabolic 2000 panelon 10-23-2023 Albumin [Mass/Vol] 3.7 g/dL Low 3.9-4.9 [facility] Comment on above: Order Comment: Speci men Type: BLOOD SPECIMENOrdering Facility: [facility] Address: [address] [place] [address] Performed By: #### 2 4323-8 ####[facility] [id number] [place] [address] [place] ALP [Catalytic activity/Vol] 175 U/L High 38-113 [facility] Comment on above: Order Comment: Speci men Type: BLOOD SPECIMENOrdering Facility: [facility] Address: [address] [place] [address] Performed By: #### 2 4323-8 ####[facility] [id number] [place] [address] [place] ALT [Catalytic activity/Vol] 26 U/L Normal 10-54 [facility] Comment on above: Order Comment: Speci men Type: BLOOD SPECIMENOrdering Facility: [facility] Address: [address] [place] [address] Performed By: #### 2 4323-8 ####[facility] [id number] [place] [address] [place] Anion gap [Moles/Vol] 10 mmol/L Normal 9-18 [facility] Comment on above: Order Comment: Speci men Type: BLOOD SPECIMENOrdering Facility: [facility] Address: [address] [place] [address] Performed By: #### 2 4323-8 ####[facility] MILLTOWNCLIA [id number] [place] [address] [place] AST [Catalytic activity/Vol] 40 U/L Normal 14-40 [facility] Comment on above: Order Comment: Speci men Type: BLOOD SPECIMENOrdering Facility: [facility] Address: [address] [place] [address] Performed By: #### 2 4323-8 ####[facility] MILLTOWNCLIA [id number] [place] [address] [place] Bilirubin [Mass/Vol] 0.3 mg/dL Normal 0.2-1.3 [facility] Comment on above: Order Comment: Speci men Type: BLOOD SPECIMENOrdering Facility: [facility] Address: [address] [place] [address] Performed By: #### 2 4323-8 ####[facility]ITALNCLIA [id number] [place] [address] [place] Calcium [Mass/Vol] 9.5 mg/dL Normal 8.5-10.2 [facility] Comment on above: Order Comment: Speci men Type: BLOOD SPECIMENOrdering Facility: [facility] Address: [address] [place] [address] Performed By: #### 2 4323-8 ####[facility] MILLTOWNCLIA [id number] [place] [address] [place] Chloride [Moles/Vol] 109 mmol/L High 97-105 [facility] Comment on above: Order Comment: Speci men Type: BLOOD SPECIMENOrdering Facility: [facility] Address: [address] [place] [address] Performed By: #### 2 4323-8 ####[facility] MILLTOWNCLIA [id number] [place] [address] [place] CO2 [Moles/Vol] 19 mmol/L Low 22-30 [facility] Comment on above: Order Comment: Speci men Type: BLOOD SPECIMENOrdering Facility: [facility] Address: [address] [place] [address] Performed By: #### 2 4323-8 ####[facility] [id number] [place] [address] [place] Creatinine [Mass/Vol] 1.32 mg/dL High 0.73-1.22 [facility] Comment on above: Order Comment: Speci men Type: BLOOD SPECIMENOrdering Facility: [facility] Address: [address] [place] [address] Performed By: #### 2 4323-8 ####[facility]ITAL[facility] [id number] [place] [address] [place] Creatinine and Glomerular filtration rate.predicted panel (S/P/Bld) 58 mL/min/1.73m??? Low >=60 [facility] Comment on above: Order Comment: Speci men Type: BLOOD SPECIMENOrdering Facility: [facility] Address: [address] [place] [address] Result Comment: Emely mated Glomerular Filtration Rate (eGFR) is calculated using the 2020 CKD-EPI creatinine equation. This equation utilizes serum creatinine, sex, and age as parameters. The creatinine assay has traceable calibration to isotope dilution-mass spectrometry. Refer to KDIGO guidelines for clinical interpretation. In patients with unstable renal function, e.g. those with acute kidney injury, the eGFR may not accurately reflect actual GFR. Performed By: #### 2 4323-8 ####[facility] MEDICAL CENTERLIA [id number] [place] [address] [place] Glucose [Mass/Vol] 140 mg/dL High 74-99 [facility] Comment on above: Order Comment: Speci men Type: BLOOD SPECIMENOrdering Facility: [facility] Address: [address] [place] [address] Result Comment: The [place] Diabetes Association (ADA) provides guidance for cutoff values for fasting glucose and random glucose. The ADA defines fasting as no caloric intake for at least 8 hours. Fasting plasma glucose results between 100 to 125 mg/dL indicate increased risk for diabetes (prediabetes).Fasting plasma glucose results greater than or equal to 126 mg/dL meet the criteria for diagnosis of diabetes. In the absence of unequivocal hyperglycemia, results should be confirmed by repeat testing. In a patient with classic symptoms of hyperglycemia or hyperglycemic crisis, random plasma glucose results greater than or equal to 200 mg/dL meet the criteria for diagnosis of diabetes.Reference: Standards of Medical Care in Diabetes 2016, [place] Diabetes Association. Diabetes Care. 2016.39(Suppl 1). Performed By: #### 2 4323-8 ####[facility] [id number] [place] [address] [place] Potassium [Moles/Vol] 3.7 mmol/L Normal 3.7-5.1 [facility] Comment on above: Order Comment: Speci men Type: BLOOD SPECIMENOrdering Facility: [facility] Address: [address] [id number] Performed By: #### 2 4323-8 ####[facility] [id number] [place] [address] [place] Protein [Mass/Vol] 6.5 g/dL Normal 6.3-8.0 [facility] Comment on above: Order Comment: Speci men Type: BLOOD SPECIMENOrdering Facility: [facility] Address: [address] [place] [address] Performed By: #### 2 4323-8 ####[facility] [id number] [place] [address] [place] Sodium [Moles/Vol] 138 mmol/L Normal 136-144 [facility] Comment on above: Order Comment: Speci men Type: BLOOD SPECIMENOrdering Facility: [facility] Address: [address] [place] [address] Performed By: #### 2 4323-8 ####[facility] CAHTY AGARWALWNCROBERTA [id number] [place] [address] [place] Urea nitrogen [Mass/Vol] 43 mg/dL High 9-24 [facility] Comment on above: Order Comment: Speci men Type: BLOOD SPECIMENOrdering Facility: [facility] Address: [address] [place] [address] Performed By: #### 2 4323-8 ####[facility] CATHY AGARWALWNCLIA [id number] [place] [address] [place] [address] [address] Chest W contrast Carmen IMPRESSION: A few small (5 mm or less) indeterminate pulmonary nodules are present and unchanged from 08/05/2023. No new or enlarging pulmonary nodules. Follow-up recommended in the patient with pancreatic malignancy. No thoracic lymphadenopathy. Chemical Handler: PSCB Transcribe Date/Time: Oct 22 2023 12:03P Dictated by : ALLAN KERR MD This examination was interpreted and the report reviewed and electronically signed by: ALLAN KERR MD on Oct 22 2023 12:24PM [facility] * * *Final Report* * * DATE OF EXAM: Oct 16 2023 4:04PM [facility] [place] - CT CHEST W IVCON / PROCEDURE REASON: 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) * * * * Physician Interpretation * * * * EXAMINATION: CHEST CT WITH CONTRAST CLINICAL HISTORY: Pancreatic cancer follow-up. Technique: Spiral CT acquisition of the chest from the thoracic inlet to the upper abdomen following IV contrast. MQ: CTCW_6 Contrast: 100 mL Omnipaque [address] Radiation dose: Integrated Dose-length product (DLP) for this visit = 508.07 mGy*cm CT Dose Reduction Employed: Automated exposure control(AEC) and iterative recon Comparison: CT chest 08/05/2023. RESULT: Limitations: None. Lines, tubes, and devices: Right chest port with tip terminating in the mid SVC. Lung parenchyma and airways: No focal consolidation. Subsegmental atelectasis at the lung bases. The central airways are patent. Multiple redemonstrated noncalcified pulmonary nodules are overall unchanged from 08/05/2023. For example: A 3 mm medial right upper lobe nodule (4:89); a 5 mm right upper lobe peribronchial nodule (4:114); a 2 mm minor fissure nodule (4:146); 4 mm nodule adjacent to the minor fissure (4:158); and a 4 mm nodule along the left fissure (4:136). Cluster of calcified left upper lobe pulmonary nodules (4:89-117) and a lateral right lower lobe calcified nodule measuring 7 mm (4:211), unchanged. No new or enlarging pulmonary nodules/masses. Pleural space: No pleural effusion. No pleural thickening. Lower neck, lymph nodes, and mediastinum: A few calcified mediastinal and left hilar lymph nodes. No lymphadenopathy. Imaged thyroid is normal. Moderate-sized hiatal hernia with surgical clips present near the gastroesophageal junction. Heart, pericardium, and thoracic vessels: The thoracic aorta and main pulmonary artery are normal in caliber. The cardiac chambers are normal in size. No coronary artery atherosclerotic calcifications are noted, although the study is not optimized for coronary assessment. No pericardial effusion or thickening. Bones and soft tissues: Degenerative changes. No suspicious osseous lesions. Upper abdomen: CT abdomen and pelvis dictated separately. Localizer images: No additional findings. [facility] Provider, [facility] - 10/22/2023 * * *Final Report* * * DATE OF EXAM: Oct 16 2023 4:04PM [facility] – [place] [address] - CT CHEST W IVCON / PROCEDURE REASON: 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) * * * * Physician Interpretation * * * * EXAMINATION: CHEST CT WITH CONTRAST CLINICAL HISTORY: Pancreatic cancer follow-up. Technique: Spiral CT acquisition of the chest from the thoracic inlet to the upper abdomen following IV contrast. MQ: CTCW_6 Contrast: 100 mL Omnipaque [address] Radiation dose: Integrated Dose-length product (DLP) for this visit = 508.07 mGy*cm CT Dose Reduction Employed: Automated exposure control(AEC) and iterative recon Comparison: CT chest 08/05/2023. RESULT: Limitations: None. Lines, tubes, and devices: Right chest port with tip terminating in the mid SVC. Lung parenchyma and airways: No focal consolidation. Subsegmental atelectasis at the lung bases. The central airways are patent. Multiple redemonstrated noncalcified pulmonary nodules are overall unchanged from 08/05/2023. For example: A 3 mm medial right upper lobe nodule (4:89); a 5 mm right upper lobe peribronchial nodule (4:114); a 2 mm minor fissure nodule (4:146); 4 mm nodule adjacent to the minor fissure (4:158); and a 4 mm nodule along the left fissure (4:136). Cluster of calcified left upper lobe pulmonary nodules (4:89-117) and a lateral right lower lobe calcified nodule measuring 7 mm (4:211), unchanged. No new or enlarging pulmonary nodules/masses. Pleural space: No pleural effusion. No pleural thickening. Lower neck, lymph nodes, and mediastinum: A few calcified mediastinal and left hilar lymph nodes. No lymphadenopathy. Imaged thyroid is normal. Moderate-sized hiatal hernia with surgical clips present near the gastroesophageal junction. Heart, pericardium, and thoracic vessels: The thoracic aorta and main pulmonary artery are normal in caliber. The cardiac chambers are normal in size. No coronary artery atherosclerotic calcifications are noted, although the study is not optimized for coronary assessment. No pericardial effusion or thickening. Bones and soft tissues: Degenerative changes. No suspicious osseous lesions. Upper abdomen: CT abdomen and pelvis dictated separately. Localizer images: No additional findings. IMPRESSION IMPRESSION: A few small (5 mm or less) indeterminate pulmonary nodules are present and unchanged from 08/05/2023. No new or enlarging pulmonary nodules. Follow-up recommended in the patient with pancreatic malignancy. No thoracic lymphadenopathy. Chemical Handler: PSCB Transcribe Date/Time: Oct 22 2023 12:03P Dictated by : ALLAN KERR MD This examination was interpreted and the report reviewed and electronically signed by: ALLAN KERR MD on Oct 22 2023 12:24PM EST [facility] CBC W Auto Differential pane l (Bld)on 10-21-2023 Anisocytosis Ql (Bld) Present [facility] Basophils (Bld) [#/Vol] 0.19 10*3/uL High NINF [facility] Basophils/100 WBC (Bld) 0.9 % [facility] Dacrocytes LM Ql (Bld) Few [facility] Differential cell count method Nom (Bld) Manual [facility] Eosinophils (Bld) [#/Vol] 0.00 10*3/uL [facility] Eosinophils/100 WBC (Bld) 0.0 % [facility] Erythrocyte distribution width (RBC) [Ratio] 15.5 % High 11.5 - 15.0 % [facility] Giant platelets LM Ql (Bld) Occasional [facility] Hematocrit (Bld) [Volume fraction] 30.1 % Low 39.0 - 51.0 % [facility] Hemoglobin (Bld) [Mass/Vol] 10.0 g/dL Low 13.0 - 17.0 g/dL [facility] Interpretation and review of laboratory results Abnormal [facility] Lymphocytes (Bld) [#/Vol] 2.84 10*3/uL [facility] Lymphocytes/100 WBC (Bld) 13.8 % [facility] MCH (RBC) [Entitic mass] 29.0 pg 26.0 - 34.0 pg [facility] MCHC (RBC) [Mass/Vol] 33.2 g/dL 30.5 - 36.0 g/dL [facility] MCV (RBC) [Entitic vol] 87.2 fL 80.0 - 100.0 fL [facility] [place]ow % 1.7 % [facility] Monocytes (Bld) [#/Vol] 1.07 10*3/uL High [facility] Monocytes/100 WBC (Bld) 5.2 % [facility] Myelo % 1.7 % [facility] Neutrophils (Bld) [#/Vol] 15.78 10*3/uL High [facility] Neutrophils/100 WBC (Bld) 76.7 % [facility] Nucleated RBC (Bld) [#/Vol] 0.19 10*3/uL High [facility] Nucleated RBC/100 WBC (Bld) [Ratio] 0.9 % /100 WBC [facility] Ovalocytes LM Ql (Bld) Few [facility] Platelet mean volume (Bld) [Entitic vol] 9.1 fL 9.0 - 12.7 fL [facility] Platelets (Bld) [#/Vol] 287 10*3/uL [facility] Platelets Estimate (Bld) [#/Vol] Adequate [facility] Polychromasia LM Ql (Bld) Slight [facility] RBC (Bld) [#/Vol] 3.45 10*6/uL Low 4.20 - 6.00 m/uL [facility] RBC Fragments Few Abnormal None Seen [facility] Red Cell Morph Reviewed: see result s of individual morphologies [facility] Toxic granules LM Ql (Bld) Present [facility] WBC (Bld) [#/Vol] 20.58 10*3/uL High [facility] WBC Left Shift Ql (Bld) Present [facility] This is an appended report. These results have been appended to a previously verified report. [facility] CNPNon 10-21-2023 CNPN Normal [facility] CT Abdomen and Pelvis W cont rast Carmen 10-21-2023 Addendum by Provider , [facility] [place] on 10/26/2023 3:45 PM EDT * * *Final Report* * * * * * SEE BOTTOM OF REPORT FOR ADDENDED TEXT * * * DATE OF EXAM: Oct 16 2023 4:04PM [facility] – [place] 0530 - CT ABD/PEL W IVCON / PROCEDURE REASON: 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) * * * * Physician Interpretation * * * * * * * * * * * * ORIGINAL REPORT * * * * * * * * EXAMINATION: CT ABDOMEN AND PELVIS WITH IV CONTRAST CLINICAL HISTORY: Pancreatic cancer, staging. TECHNIQUE: CT of the abdomen and pelvis was performed using standard technique, scanning from just above the dome of the diaphragm to the symphysis pubis. MQ: CTAP_3 Contrast: IV: 100 ml of Omnipaque 300 Oral: [address] Radiation dose: Integrated Dose-length product (DLP) for this visit = 540.93 mGy*cm. CT Dose Reduction Employed: Automated exposure control(AEC) and iterative recon COMPARISON: CT the abdomen pelvis with contrast from 08/05/2023. RESULT: Liver: No mass. Biliary: Common bile duct stent is now present. There is associated pneumobilia. There is only mild intrahepatic biliary ductal dilatation. This is markedly improved when compared to the prior exam. Cholecystectomy. Spleen: Numerous benign calcified splenic granulomas. No splenomegaly. Pancreas: There is a poorly defined mass in the head of the pancreas which measures approximately 2.5 x 2.3 cm near slice 38 of series 3. This is decreased in size when compared to the prior exam when it measured 3.2 x 3.0 cm. There is moderate to marked upstream pancreatic ductal dilatation and pancreatic parenchymal atrophy. There is infiltrative soft tissue encasing the celiac artery as well as common hepatic artery and proximal splenic artery. This is similar in appearance to the prior exam. Superior mesenteric artery is normal. The main portal vein abuts the pancreatic mass in infiltrate soft tissue. The superior mesenteric vein and splenic vein are normal. Adrenals: No mass. Kidneys: Mild bilateral renal cortical atrophy. Nonobstructing stones in the lower pole of the left kidney. GI tract: Small hiatal hernia. No bowel obstruction. Lymph nodes: No abdominal or pelvic lymphadenopathy. Mesentery/Peritoneum: No ascites or mass. Pelvis: No mass, ascites or fluid collection. Bones/Soft Tissues: Degenerative changes. 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 Mesh hernia repair along the anterior pelvic wall. Lower thorax: A chest CT performed will be reported separately. Localizer images: No additional findings. IMPRESSION: 1. Poorly defined pancreatic head mass which measures approximately 2.5 x 2.3 cm and is decreased in size when compared to the prior CT scan from 08/05/2023. This is consistent with patient's known pancreatic cancer. There is infiltrating soft tissue surrounding the celiac artery, common hepatic artery, and proximal splenic artery which is similar to the prior exam. No new or worsening disease. 2. It is interval placement of a common bile duct stent. There is only mild intrahepatic biliary ductal dilatation which is markedly improved when compared to the prior exam. * * * * * * * * ADDENDUM #1 * * * * * * * * Addendum dated 10/26/2023: In addition to the findings mentioned in the initial report, there is a 1.2 x 0.8 cm perihepatic nodule adjacent to segment 5 of the liver on slice 38 of series 3. This is unchanged in size and appearance when compared to the prior CT scan from 08/05/2023. Chemical Handler: KOLE Transcribe Date/Time: Oct 26 2023 3:41P Dictated by : ARLETTE HERNADEZ MD This examination was interpreted and the report reviewed and electronically signed by: ARLETTE HERNADEZ MD on Oct 21 2023 11:34AM EST This document has been addended by: ARLETTE HERNADEZ MD on Oct 26 2023 3:43PM EST [facility] CT Abdomen and Pelvis W cont rast IVOrdered By: Ccf Provider on 10-21-2023 [facility] CBC W Auto Differential pane l (Bld)on 10-20-2023 Anisocytosis Ql (Bld) Present Normal [facility] Comment on above: Order Comment: Speci men Type: BLOOD SPECIMENOrdering Facility: [facility] Address: [address] [place] [address] Performed By: #### 5 7021-8 ####[facility]OSPITALWAKLIA [id number] [address] LABCLIA [id number] [place] [address] [place] Basophils (Bld) [#/Vol] 0.19 10*3/uL High <0.11 [facility] Comment on above: Order Comment: Speci men Type: BLOOD SPECIMENOrdering Facility: [facility] Address: [address] [place] [address] Performed By: #### 5 7021-8 ####[facility] CENTERLIA [id number] [address] LABCLIA [id number] [address] [place] Basophils/100 WBC (Bld) 0.9 % Normal [facility] Comment on above: Order Comment: Speci men Type: BLOOD SPECIMENOrdering Facility: [facility] Address: [address] [place] [address] Performed By: #### 5 7021-8 ####[facility] HOSPITALWNCLIA [id number] [address] LABCLIA [id number] [address] [place] Dacrocytes LM Ql (Bld) Few Normal [facility] Comment on above: Order Comment: Speci men Type: BLOOD SPECIMENOrdering Facility: [facility] Address: [address] [place] [address] Performed By: #### 5 7021-8 ####[facility] MILLTOWNCLIA [id number] [address] STATES [facility] LABCLIA [id number] [place] [address] [place] Differential cell count method Nom (Bld) Manual Normal [facility] Comment on above: Order Comment: Speci men Type: BLOOD SPECIMENOrdering Facility: [facility] Address: [address] [place] [address] Performed By: #### 5 7021-8 ####[facility] HOSPITALWNCLIA [id number] [place] [address] [place] [facility] LABCLIA [id number] [place] [address] [place] Eosinophils (Bld) [#/Vol] 0.00 10*3/uL Normal <0.46 [facility] Comment on above: Order Comment: Speci men Type: BLOOD SPECIMENOrdering Facility: [facility] Address: [address] [place] [address] Performed By: #### 5 7021-8 ####[facility] MILLTOWNCLIA [id number] [address] STATES OF [facility] LABCLIA [id number] [place] [address] [place] Eosinophils/100 WBC (Bld) 0.0 % Normal [facility] Comment on above: Order Comment: Speci men Type: BLOOD SPECIMENOrdering Facility: [facility] Address: [address] [place] [address] Performed By: #### 5 7021-8 ####[facility]OS[facility]ITALWNCLIA [id number] [address] LABCLIA [id number] [place] [address] [place] Erythrocyte distribution width (RBC) [Ratio] 15.5 % High 11.5-15.0 [facility] Comment on above: Order Comment: Speci men Type: BLOOD SPECIMENOrdering Facility: [facility] Address: [address] [place] [address] Performed By: #### 5 7021-8 ####[facility] CENTERLIA [id number] [address] LABCLIA [id number] [place] [address] [place] Giant platelets LM Ql (Bld) Occasional Normal [facility] Comment on above: Order Comment: Speci men Type: BLOOD SPECIMENOrdering Facility: [facility] Address: [address] [place] [address] Performed By: #### 5 7021-8 ####[facility] FLORIDAA [id number] [address] STATES [facility] LABCLIA [id number] [place] [address] [place] Hematocrit (Bld) [Volume fraction] 30.1 % Low 39.0-51.0 [facility] Comment on above: Order Comment: Speci men Type: BLOOD SPECIMENOrdering Facility: [facility] Address: [address] [place] [address] Performed By: #### 5 7021-8 ####[facility] HOSPITALNCLIA [id number] [address] STATES [facility] LABCLIA [id number] [place] [address] [place] Hemoglobin (Bld) [Mass/Vol] 10.0 g/dL Low 13.0-17.0 [facility] Comment on above: Order Comment: Speci men Type: BLOOD SPECIMENOrdering Facility: [facility] Address: [address] [place] [address] Performed By: #### 5 7021-8 ####[facility] MILLWAKLIA [id number] [address] LABCLIA [id number] [place] [address] [place] Lymphocytes (Bld) [#/Vol] 2.84 10*3/uL Normal 1.00-4.00 [facility] Comment on above: Order Comment: Speci men Type: BLOOD SPECIMENOrdering Facility: [facility] Address: [address] [place] [address] Performed By: #### 5 7021-8 ####[facility] MILLWAKLIA [id number] [address] LABCLIA [id number] [address] [place] Lymphocytes/100 WBC (Bld) 13.8 % Normal [facility] Comment on above: Order Comment: Speci men Type: BLOOD SPECIMENOrdering Facility: [facility] Address: [address] [place] [address] Performed By: #### 5 7021-8 ####[facility] HOSPITALNCLIA [id number] [address] LABCLIA [id number] [place] [address] [place] MCH (RBC) [Entitic mass] 29.0 pg Normal 26.0-34.0 [facility] Comment on above: Order Comment: Speci men Type: BLOOD SPECIMENOrdering Facility: [facility] Address: [address] [place] [address] Performed By: #### 5 7021-8 ####[facility] VAWCRISTOFERLIA [id number] [address] LABCLIA [id number] [place] [address] [place] MCHC (RBC) [Mass/Vol] 33.2 g/dL Normal 30.5-36.0 [facility] Comment on above: Order Comment: Speci men Type: BLOOD SPECIMENOrdering Facility: [facility] Address: [address] [place] [address] Performed By: #### 5 7021-8 ####[facility] HOSPITALCRISTOFERLIA [id number] [address] LABCLIA [id number] [place] [address] [place] MCV (RBC) [Entitic vol] 87.2 fL Normal 80.0-100.0 [facility] Comment on above: Order Comment: Speci men Type: BLOOD SPECIMENOrdering Facility: [facility] Address: [address] [place] [address] Performed By: #### 5 7021-8 ####[facility] HOSPITALWNCLIA [id number] [address] LABCLIA [id number] [address] [place] Metamyelocytes/100 WBC (Bld) 1.7 % Normal [facility] Comment on above: Order Comment: Speci men Type: BLOOD SPECIMENOrdering Facility: [facility] Address: [address] [place] [address] Performed By: #### 5 7021-8 ####[facility] HOSPITALRCISTOFERLIA [id number] [place] [address] [place] [facility] LABCLIA [id number] [place] [address] [place] Monocytes (Bld) [#/Vol] 1.07 10*3/uL High <0.87 [facility] Comment on above: Order Comment: Speci men Type: BLOOD SPECIMENOrdering Facility: [facility] Address: [address] [place] [address] Performed By: #### 5 7021-8 ####[facility] MILLTOWNCLIA [id number] [address] LABCLIA [id number] [place] [address] [place] Monocytes/100 WBC (Bld) 5.2 % Normal [facility] Comment on above: Order Comment: Speci men Type: BLOOD SPECIMENOrdering Facility: [facility] Address: [address] [place] [address] Performed By: #### 5 7021-8 ####[facility] HOSPITALWNCLIA [id number] [address] STATES OF [facility] LABCLIA [id number] [place] [address] [place] MYELO% 1.7 % Normal [facility] Comment on above: Order Comment: Speci men Type: BLOOD SPECIMENOrdering Facility: [facility] Address: [address] [place] [address] Performed By: #### 5 7021-8 ####[facility] MILLWNCLIA [id number] [place] [address] [place] [facility] LABCLIA [id number] [place] [address] [place] Neutrophils (Bld) [#/Vol] 15.78 10*3/uL High 1.45-7.50 [facility] Comment on above: Order Comment: Speci men Type: BLOOD SPECIMENOrdering Facility: [facility] Address: [address] [place] [address] Performed By: #### 5 7021-8 ####[facility] CENTERLIA [id number] [address] LABCLIA [id number] [place] [address] [place] Neutrophils/100 WBC (Bld) 76.7 % Normal [facility] Comment on above: Order Comment: Speci men Type: BLOOD SPECIMENOrdering Facility: [facility] Address: [address] [place] [address] Performed By: #### 5 7021-8 ####[facility] [id number] [address] STATES OF [facility] LABCLIA [id number] [place] [address] [place] Nucleated RBC (Bld) [#/Vol] 0.19 10*3/uL High <0.01 [facility] Comment on above: Order Comment: Speci men Type: BLOOD SPECIMENOrdering Facility: [facility] Address: [address] [place] [address] Performed By: #### 5 7021-8 ####[facility] FLORIDAA [id number] [address] STATES OF [facility] LABCLIA [id number] [place] [id number] [place] Nucleated RBC/100 WBC (Bld) [Ratio] 0.9 /100 WBC Normal [facility] Comment on above: Order Comment: Speci men Type: BLOOD SPECIMENOrdering Facility: [facility] Address: [address] [place] [address] Performed By: #### 5 7021-8 ####[facility] CENTERLIA [id number] [place] [address] [place] [facility] LABCLIA [id number] [place] [address] [place] Ovalocytes LM Ql (Bld) Few Normal [facility] Comment on above: Order Comment: Speci men Type: BLOOD SPECIMENOrdering Facility: [facility] Address: [address] [place] [address] Performed By: #### 5 7021-8 ####[facility] HOSPITALWNCLIA [id number] [address] LABCLIA [id number] [place] [address] [place] Platelet mean volume (Bld) [Entitic vol] 9.1 fL Normal 9.0-12.7 [facility] Comment on above: Order Comment: Speci men Type: BLOOD SPECIMENOrdering Facility: [facility] Address: [address] [place] [address] Performed By: #### 5 7021-8 ####[facility]ITALWNCLIA [id number] [address] STATES [facility] LABCLIA [id number] [place] [address] [place] Platelets (Bld) [#/Vol] 287 10*3/uL Normal 150-400 [facility] Comment on above: Order Comment: Speci men Type: BLOOD SPECIMENOrdering Facility: [facility] Address: [address] [place] [address] Performed By: #### 5 7021-8 ####[facility] MILLWNCLIA [id number] [address] LABCLIA [id number] [place] [address] [place] Platelets Estimate (Bld) [#/Vol] Adequate Normal [facility] Comment on above: Order Comment: Speci men Type: BLOOD SPECIMENOrdering Facility: [facility] Address: [address] [place] [address] Performed By: #### 5 7021-8 ####[facility] HOSPITALNCLIA [id number] [address] LABCLIA [id number] [place] [address] [place] Polychromasia LM Ql (Bld) Slight Normal [facility] Comment on above: Order Comment: Speci men Type: BLOOD SPECIMENOrdering Facility: [facility] Address: [address] [place] [address] Performed By: #### 5 7021-8 ####[facility] HOSPITALNCA [id number] [address] LABCLIA [id number] [place] [address] [place] RBC (Bld) [#/Vol] 3.45 10*6/uL Low 4.20-6.00 [facility] Comment on above: Order Comment: Speci men Type: BLOOD SPECIMENOrdering Facility: [facility] Address: [address] [place] [address] Performed By: #### 5 7021-8 ####[facility] FLORIDAA [id number] [address] OF [facility] LABCLIA [id number] [place] [address] [place] RBC FRAGMENTS Few Abnormal None Seen [facility] Comment on above: Order Comment: Speci men Type: BLOOD SPECIMENOrdering Facility: [facility] Address: [address] [place] [address] Performed By: #### 5 7021-8 ####[facility] MILLTOWNCLIA [id number] [address] LABCLIA [id number] [place] [address] [place] RED CELL MORPH Reviewed: see result s of individual morphologies Normal [facility] Comment on above: Order Comment: Speci men Type: BLOOD SPECIMENOrdering Facility: [facility] Address: [address] [place] [address] Performed By: #### 5 7021-8 ####[facility] MILLWNCLIA [id number] [address] LABCLIA [id number] [place] [address] [place] Toxic granules LM Ql (Bld) Present Normal [facility] Comment on above: Order Comment: Speci men Type: BLOOD SPECIMENOrdering Facility: [facility] Address: [address] [place] [address] Performed By: #### 5 7021-8 ####[facility] MILLTOWNCLIA [id number] [address] LABCLIA [id number] [place] [address] [place] WBC (Bld) [#/Vol] 20.58 10*3/uL High 3.70-11.00 [facility] Comment on above: Order Comment: Speci men Type: BLOOD SPECIMENOrdering Facility: [facility] Address: [address] [place] [address] Performed By: #### 5 7021-8 ####[facility] MILLTOWNCLIA [id number] [address] LABCLIA [id number] [address] [place] WBC Left Shift Ql (Bld) Present Normal [facility] Comment on above: Order Comment: Speci men Type: BLOOD SPECIMENOrdering Facility: [facility] Address: [address] [place] [address] Performed By: #### 5 7021-8 ####[facility] [id number] [address] OF [facility] LABCLIA [id number] [address] [place] CNOVSPon 10-20-2023 CNOVSP Normal [facility] Cancer Ag19-9 SerPl-aCncon 0 10-20-2023 Cancer Ag 19-9 Qn 93.0 [arb'U]/mL High <36.0 [facility] Comment on above: Order Comment: Speci men Type: BLOOD SPECIMENOrdering Facility: [facility] Address: [address] [place], [place] [address] [address] Result Comment: Rust er antigen 19-9 test is used as an aid in monitoring response to treatment or recurrence in patients with established pancreatic, hepatobiliary, or gastrointestinal malignancies. Clinical correlation is required.The CA 19-9 Antigen test was performed using the [employer] customer insight Un[employer]el DXI paramagnetic particle chemiluminescent immunoassay method. Results obtained with different assay methods or kits cannot be used interchangeably. Performed By: #### 2 4108-3 ####[facility] LABIA [id number] [address] [place] Comprehensive metabolic 2000 panelOrdered By: Felicia Macias on 10-20-2023 Albumin [Mass/Vol] 3.4 g/dL Low 3.9 - 4.9 g/dL [facility] ALP [Catalytic activity/Vol] 166 U/L High 38 - 113 U/L [facility] ALT [Catalytic activity/Vol] 17 U/L 10 - 54 U/L [facility] Anion gap [Moles/Vol] 8 mmol/L Low 9 - 18 mmol/L [facility] AST [Catalytic activity/Vol] 20 U/L 14 - 40 U/L [facility] Bilirubin [Mass/Vol] 0.2 mg/dL 0.2 - 1.3 mg/dL [facility] Calcium [Mass/Vol] 9.1 mg/dL 8.5 - 10. 2 mg/dL [facility] Chloride [Moles/Vol] 109 mmol/L High 97 - 105 mmol/L [facility] CO2 [Moles/Vol] 20 mmol/L Low 22 - 30 mmol/L [facility] Creatinine [Mass/Vol] 1.26 mg/dL High 0.73 - 1.22 mg/dL [facility] GFR/1.73 sq M.predicted among non-blacks MDRD (S/P/Bld) [Vol rate/Area] 61 mL/min/{1.73_m2} - PINF [facility] Comment on above: Estimated Glomerular Filtration Rate (eGFR) is calculated using the 2020 CKD-EPI creatinine equation. This equation utilizes serum creatinine, sex, and age as parameters. The creatinine assay has traceable calibration to isotope dilution-mass spectrometry. Refer to KDIGO guidelines for clinical interpretation. In patients with unstable renal function, e.g. those with acute kidney injury, the eGFR may not accurately reflect actual GFR. Glucose [Mass/Vol] 147 mg/dL High 74 - 99 mg/dL [facility] Comment on above: The [place] Diabete s Association (ADA) provides guidance for cutoff values for fasting glucose and random glucose. The ADA defines fasting as no caloric intake for at least 8 hours. Fasting plasma glucose results between 100 to 125 mg/dL indicate increased risk for diabetes (prediabetes). Fasting plasma glucose results greater than or equal to 126 mg/dL meet the criteria for diagnosis of diabetes. In the absence of unequivocal hyperglycemia, results should be confirmed by repeat testing. In a patient with classic symptoms of hyperglycemia or hyperglycemic crisis, random plasma glucose results greater than or equal to 200 mg/dL meet the criteria for diagnosis of diabetes. Reference: Standards of Medical Care in Diabetes 2016, [place] Diabetes Association. Diabetes Care. 2016.39(Suppl 1). Interpretation and review of laboratory results Abnormal [facility] Potassium [Moles/Vol] 2.9 mmol/L Low 3.7 - 5.1 mmol/L [facility] Protein [Mass/Vol] 6.0 g/dL Low 6.3 - 8.0 g/dL [facility] Sodium [Moles/Vol] 137 mmol/L 136 - 144 mmol/L [facility] Urea nitrogen [Mass/Vol] 16 mg/dL 9 - 24 mg/dL [facility] Comprehensive metabolic 2000 panelon 10-20-2023 Albumin [Mass/Vol] 3.4 g/dL Low 3.9-4.9 [facility] Comment on above: Order Comment: Speci men Type: BLOOD SPECIMENOrdering Facility: [facility] Address: [address] [place] [address] Performed By: #### 1 9123-9, 98677-5 ####[facility] MILLWNCLIA [id number] [place] [address] [place] ALP [Catalytic activity/Vol] 166 U/L High 38-113 [facility] Comment on above: Order Comment: Speci men Type: BLOOD SPECIMENOrdering Facility: [facility] Address: [address] [place] [address] Performed By: #### 1 9123-9, 06024-8 ####[facility] CENTERLIA [id number] [place] [address] [place] ALT [Catalytic activity/Vol] 17 U/L Normal 10-54 [facility] Comment on above: Order Comment: Speci men Type: BLOOD SPECIMENOrdering Facility: [facility] Address: [address] [place] [address] Performed By: #### 1 9123-9, 91220-2 ####[facility] CENTERLIA [id number] [place] [address] [place] Anion gap [Moles/Vol] 8 mmol/L Low 9-18 [facility] Comment on above: Order Comment: Speci men Type: BLOOD SPECIMENOrdering Facility: [facility] Address: [address] [place] [address] Performed By: #### 1 9123-9, 74647-6 ####[facility] HOSPITALCRISTOFERLIA [id number] [place] [address] [place] AST [Catalytic activity/Vol] 20 U/L Normal 14-40 [facility] Comment on above: Order Comment: Speci men Type: BLOOD SPECIMENOrdering Facility: [facility] Address: [address] [place] [address] Performed By: #### 1 9123-9, 11709-6 ####[facility] MILLTOWNCLIA [id number] [place] [address] [place] Bilirubin [Mass/Vol] 0.2 mg/dL Normal 0.2-1.3 [facility] Comment on above: Order Comment: Speci men Type: BLOOD SPECIMENOrdering Facility: [facility] Address: [address] [place] [address] Performed By: #### 1 9123-9, 42454-3 ####[facility] MILLTOWCRISTOFERLIA [id number] [place] [address] [place] Calcium [Mass/Vol] 9.1 mg/dL Normal 8.5-10.2 [facility] Comment on above: Order Comment: Speci men Type: BLOOD SPECIMENOrdering Facility: [facility] Address: [address] [place] [address] Performed By: #### 1 9123-9, 42492-9 ####[facility] MILLTOWNCLIA [id number] [place] [address] [place] Chloride [Moles/Vol] 109 mmol/L High 97-105 [facility] Comment on above: Order Comment: Speci men Type: BLOOD SPECIMENOrdering Facility: [facility] Address: [address] [place] [address] Performed By: #### 1 9123-9, 92689-9 ####[facility] CATHY MILLTOWNCLIA [id number] [place] [address] [place] CO2 [Moles/Vol] 20 mmol/L Low 22-30 [facility] Comment on above: Order Comment: Speci men Type: BLOOD SPECIMENOrdering Facility: [facility] Address: [address] [place] [address] Performed By: #### 1 9123-9, ####[facility] CATHY ANYWNCLIA [id number] [place] [address] [place] Creatinine [Mass/Vol] 1.26 mg/dL High 0.73-1.22 [facility] Comment on above: Order Comment: Speci men Type: BLOOD SPECIMENOrdering Facility: [facility] Address: [address] [place] [address] Performed By: #### 1 9123-9, ####[facility] HOSPITALNCLIA [id number] [place] [address] [place] Creatinine and Glomerular filtration rate.predicted panel (S/P/Bld) 61 mL/min/1.73m??? Normal >=60 [facility] Comment on above: Order Comment: Speci men Type: BLOOD SPECIMENOrdering Facility: [facility] Address: [address] [place] [address] Result Comment: Emely mated Glomerular Filtration Rate (eGFR) is calculated using the 2020 CKD-EPI creatinine equation. This equation utilizes serum creatinine, sex, and age as parameters. The creatinine assay has traceable calibration to isotope dilution-mass spectrometry. Refer to KDIGO guidelines for clinical interpretation. In patients with unstable renal function, e.g. those with acute kidney injury, the eGFR may not accurately reflect actual GFR. Performed By: #### 1 9123-9, ####[facility] HOSPITALNCLIA [id number] [place] [address] [place] Glucose [Mass/Vol] 147 mg/dL High 74-99 [facility] Comment on above: Order Comment: Speci men Type: BLOOD SPECIMENOrdering Facility: [facility] Address: [address] [place] [address] Result Comment: The [place] Diabetes Association (ADA) provides guidance for cutoff values for fasting glucose and random glucose. The ADA defines fasting as no caloric intake for at least 8 hours. Fasting plasma glucose results between 100 to 125 mg/dL indicate increased risk for diabetes (prediabetes).Fasting plasma glucose results greater than or equal to 126 mg/dL meet the criteria for diagnosis of diabetes. In the absence of unequivocal hyperglycemia, results should be confirmed by repeat testing. In a patient with classic symptoms of hyperglycemia or hyperglycemic crisis, random plasma glucose results greater than or equal to 200 mg/dL meet the criteria for diagnosis of diabetes.Reference: Standards of Medical Care in Diabetes 2016, [place] [employer] Association. Diabetes Care. 2016.39(Suppl 1). Performed By: #### 1 9123-9, 29787-3 ####[facility] FLORIDANorma [id number] [place] [address] [place] Potassium [Moles/Vol] 2.9 mmol/L Low 3.7-5.1 [facility] Comment on above: Order Comment: Speci men Type: BLOOD SPECIMENOrdering Facility: [facility] Address: [address] [place] [address] Performed By: #### 1 9123-9, 57383-6 ####[facility] FLORIDANorma [id number] [place] [address] [place] Protein [Mass/Vol] 6.0 g/dL Low 6.3-8.0 [facility] Comment on above: Order Comment: Speci men Type: BLOOD SPECIMENOrdering Facility: [facility] Address: [address] [place] [address] Performed By: #### 1 9123-9, 31362-7 ####[facility] MEDICAL CENTERROBERTA [id number] [place] [address] [place] Sodium [Moles/Vol] 137 mmol/L Normal 136-144 [facility] Comment on above: Order Comment: Speci men Type: BLOOD SPECIMENOrdering Facility: [facility] Address: [address] [place] [address] Performed By: #### 1 9123-9, 72266-6 ####[facility] MARYNCROBERTA [id number] [place] [address] [place] Urea nitrogen [Mass/Vol] 16 mg/dL Normal 9-24 [facility] Comment on above: Order Comment: Speci men Type: BLOOD SPECIMENOrdering Facility: [facility] Address: [facility] [place] [id number] Performed By: #### 1 9123-9, 70057-4 ####[facility] VAQUECHEENCLINorma [id number] [place] [address] [place] MAGNESIUM BLDon 10-20-2023 Magnesium [Mass/Vol] 2.0 mg/dL 1.7 - 2.3 mg/dL [facility] Magnesium SerPl-mCncon 10-19 Magnesium [Mass/Vol] 2.0 mg/dL Normal 1.7-2.3 [facility] Comment on above: Order Comment: Speci men Type: BLOOD SPECIMENOrdering Facility: [facility] Address: [address] [place] [id number] Performed By: #### 1 9123-9, 18146-0 ####[facility] VAQUECHEENCLIA [id number] [place] [address] [place] Magnesium [Mass/Vol]on 10-19 Interpretation and review of laboratory results Normal [facility] CT ABD/PEL W IVCONon 024 CT ABD/PEL W IVCON * * *Final Report* * * * * * SEE BOTTOM OF REPORT FOR ADDENDED TEXT * * * DATE OF EXAM: Oct 16 2023 4:04PM [facility] [place]30 - CT ABD/PEL W IVCON / PROCEDURE REASON: 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) * * * * Physician Interpretation * * * * * * * * * * * * ORIGINAL REPORT * * * * * * * * EXAMINATION: CT ABDOMEN AND PELVIS WITH IV CONTRAST CLINICAL HISTORY: Pancreatic cancer, staging. TECHNIQUE: CT of the abdomen and pelvis was performed using standard technique, scanning from just above the dome of the diaphragm to the symphysis pubis. MQ: CTAP_3 Contrast: IV: 100 ml of Omnipaque 300 Oral: [address] Radiation dose: Integrated Dose-length product (DLP) for this visit = 540.93 mGy*cm. CT Dose Reduction Employed: Automated exposure control(AEC) and iterative recon COMPARISON: CT the abdomen pelvis with contrast from 08/05/2023. RESULT: Liver: No mass. Biliary: Common bile duct stent is now present. There is associated pneumobilia. There is only mild intrahepatic biliary ductal dilatation. This is markedly improved when compared to the prior exam. Cholecystectomy. Spleen: Numerous benign calcified splenic granulomas. No splenomegaly. Pancreas: There is a poorly defined mass in the head of the pancreas which measures approximately 2.5 x 2.3 cm near slice 38 of series 3. This is decreased in size when compared to the prior exam when it measured 3.2 x 3.0 cm. There is moderate to marked upstream pancreatic ductal dilatation and pancreatic parenchymal atrophy. There is infiltrative soft tissue encasing the celiac artery as well as common hepatic artery and proximal splenic artery. This is similar in appearance to the prior exam. Superior mesenteric artery is normal. The main portal vein abuts the pancreatic mass in infiltrate soft tissue. The superior mesenteric vein and splenic vein are normal. Adrenals: No mass. Kidneys: Mild bilateral renal cortical atrophy. Nonobstructing stones in the lower pole of the left kidney. GI tract: Small hiatal hernia. No bowel obstruction. Lymph nodes: No abdominal or pelvic lymphadenopathy. Mesentery/Peritoneum: No ascites or mass. Pelvis: No mass, ascites or fluid collection. Bones/Soft Tissues: Degenerative changes. 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 Mesh hernia repair along the anterior pelvic wall. Lower thorax: A chest CT performed will be reported separately. Localizer images: No additional findings. IMPRESSION: 1. Poorly defined pancreatic head mass which measures approximately 2.5 x 2.3 cm and is decreased in size when compared to the prior CT scan from 08/05/2023. This is consistent with patient's known pancreatic cancer. There is infiltrating soft tissue surrounding the celiac artery, common hepatic artery, and proximal splenic artery which is similar to the prior exam. No new or worsening disease. 2. It is interval placement of a common bile duct stent. There is only mild intrahepatic biliary ductal dilatation which is markedly improved when compared to the prior exam. * * * * * * * * ADDENDUM #1 * * * * * * * * Addendum dated 10/26/2023: In addition to the findings mentioned in the initial report, there is a 1.2 x 0.8 cm perihepatic nodule adjacent to segment 5 of the liver on slice 38 of series 3. This is unchanged in size and appearance when compared to the prior CT scan from 08/05/2023. Chemical Handler: PSCB Transcribe Date/Time: Oct 26 2023 3:41P Dictated by : ARLETTE HERNADEZ MD This examination was interpreted and the report reviewed and electronically signed by: ARLETTE HERNADEZ MD on Oct 21 2023 11:34AM EST This document has been addended by: ARLETTE HERNADEZ MD on Oct 26 2023 3:43PM EST [id number] [facility] CHEST W IVCONon 4 CT CHEST W IVCON * * *Final Report* * * DATE OF EXAM: Oct 16 2023 4:04PM [facility] [place] 0539 - CT CHEST W IVCON / PROCEDURE REASON: 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) * * * * Physician Interpretation * * * * EXAMINATION: CHEST CT WITH CONTRAST CLINICAL HISTORY: Pancreatic cancer follow-up. Technique: Spiral CT acquisition of the chest from the thoracic inlet to the upper abdomen following IV contrast. MQ: CTCW_6 Contrast: 100 mL Omnipaque [address] Radiation dose: Integrated Dose-length product (DLP) for this visit = 508.07 mGy*cm CT Dose Reduction Employed: Automated exposure control(AEC) and iterative recon Comparison: CT chest 08/05/2023. RESULT: Limitations: None. Lines, tubes, and devices: Right chest port with tip terminating in the mid SVC. Lung parenchyma and airways: No focal consolidation. Subsegmental atelectasis at the lung bases. The central airways are patent. Multiple redemonstrated noncalcified pulmonary nodules are overall unchanged from 08/05/2023. For example: A 3 mm medial right upper lobe nodule (4:89); a 5 mm right upper lobe peribronchial nodule (4:114); a 2 mm minor fissure nodule (4:146); 4 mm nodule adjacent to the minor fissure (4:158); and a 4 mm nodule along the left fissure (4:136). Cluster of calcified left upper lobe pulmonary nodules (4:89-117) and a lateral right lower lobe calcified nodule measuring 7 mm (4:211), unchanged. No new or enlarging pulmonary nodules/masses. Pleural space: No pleural effusion. No pleural thickening. Lower neck, lymph nodes, and mediastinum: A few calcified mediastinal and left hilar lymph nodes. No lymphadenopathy. Imaged thyroid is normal. Moderate-sized hiatal hernia with surgical clips present near the gastroesophageal junction. Heart, pericardium, and thoracic vessels: The thoracic aorta and main pulmonary artery are normal in caliber. The cardiac chambers are normal in size. No coronary artery atherosclerotic calcifications are noted, although the study is not optimized for coronary assessment. No pericardial effusion or thickening. Bones and soft tissues: Degenerative changes. No suspicious osseous lesions. Upper abdomen: CT abdomen and pelvis dictated separately. Localizer images: No additional findings. IMPRESSION: A few small (5 mm or less) indeterminate pulmonary nodules are present and unchanged from 08/05/2023. No new or enlarging pulmonary nodules. Follow-up recommended in the patient with pancreatic malignancy. No thoracic lymphadenopathy. Chemical Handler: KOLE Transcribe Date/Time: Oct 22 2023 12:03P Dictated by : ALLAN EKRR MD This examination was interpreted and the report reviewed and electronically signed by: ALLAN KERR MD on Oct 22 2023 12:24PM EST [id number] Normal [facility] No Panel Informationon 10-15 Radiology Study observation (narrative) [facility] CNPNon 10-14-2023 CNPN Normal [facility] CNPNon 10-13-2023 CNPN Normal [facility] CBC W Auto Differential pane l (Bld)on 10-07-2023 Anisocytosis Ql (Bld) Present [facility] Basophils (Bld) [#/Vol] 0.00 10*3/uL NINF [facility] Basophils/100 WBC (Bld) 0.0 % [facility] Differential cell count method Nom (Bld) Manual [facility] Eosinophils (Bld) [#/Vol] 0.00 10*3/uL NINF [facility] Eosinophils/100 WBC (Bld) 0.0 % [facility] Erythrocyte distribution width (RBC) [Ratio] 15.1 % High 11.5 - 15.0 % [facility] Hematocrit (Bld) [Volume fraction] 33.1 % Low 39.0 - 51.0 % [facility] Hemoglobin (Bld) [Mass/Vol] 11.3 g/dL Low 13.0 - 17.0 g/dL [facility] Interpretation and review of laboratory results Abnormal [facility] Lymphocytes (Bld) [#/Vol] 2.87 10*3/uL [facility] Lymphocytes/100 WBC (Bld) 12.1 % [facility] MCH (RBC) [Entitic mass] 29.6 pg 26.0 - 34.0 pg [facility] MCHC (RBC) [Mass/Vol] 34.1 g/dL 30.5 - 36.0 g/dL [facility] MCV (RBC) [Entitic vol] 86.6 fL 80.0 - 100.0 fL [facility] Bolckow % 0.9 % [facility] Monocytes (Bld) [#/Vol] 0.81 10*3/uL NINF [facility] Monocytes/100 WBC (Bld) 3.4 % [facility] Myelo % 0.9 % [facility] Neutrophils (Bld) [#/Vol] 19.61 10*3/uL High [facility] Neutrophils/100 WBC (Bld) 82.7 % [facility] Nucleated RBC (Bld) [#/Vol] [facility] Nucleated RBC/100 WBC (Bld) [Ratio] 0.0 % /100 WBC [facility] Ovalocytes LM Ql (Bld) Few [facility] Platelet mean volume (Bld) [Entitic vol] 9.2 fL 9.0 - 12.7 fL [facility] Platelets (Bld) [#/Vol] 274 10*3/uL [facility] Platelets Estimate (Bld) [#/Vol] Adequate [facility] Polychromasia LM Ql (Bld) Slight [facility] RBC (Bld) [#/Vol] 3.82 10*6/uL Low 4.20 - 6.00 m/uL [facility] Red Cell Morph Reviewed: see result s of individual morphologies [facility] Toxic granules LM Ql (Bld) Present [facility] WBC (Bld) [#/Vol] 23.71 10*3/uL High [facility] WBC Left Shift Ql (Bld) Present [facility] This is an appended report. These results have been appended to a previously verified report. 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 Abnormal Normal [facility] Comment on above: Order Comment: Speci men Type: STOOL SPECIMENOrdering Facility: [facility] Address: [address] [place] [address] Performed By: #### P ANCEF ####[facility] LABCLIA [id number] [place] [address] [place] ELASTASE-1 CONCENTRATION 125 ug/g Abnormal >=200 [facility] Comment on above: Order Comment: Speci men Type: STOOL SPECIMENOrdering Facility: [facility] Address: [address] [place] [address] Result Comment: Inte rpretation:<100 ug/g: Severe Exocrine Pancreatic Nymelhuoqbvry899-959 ug/g: Mild to Moderate Exocrine Pancreatic Insufficiency>=200 ug/g: Normal Performed By: #### P ANCEF ####[facility] LABCLIA [id number] [place] [address] [place] CBC W Auto Differential pane l (Bld)on 10-06-2023 Anisocytosis Ql (Bld) Present Normal [facility] Comment on above: Order Comment: Speci men Type: BLOOD SPECIMENOrdering Facility: [facility] Address: [address] [place] [address] Performed By: #### 5 7021-8 ####[facility] EDMONDLIA [id number] [place] [address] [place] [facility] LABCLIA [id number] [place] [address] [place] Basophils (Bld) [#/Vol] 0.00 10*3/uL Normal <0.11 [facility] Comment on above: Order Comment: Speci men Type: BLOOD SPECIMENOrdering Facility: [facility] Address: [address] [place] [address] Performed By: #### 5 7021-8 ####[facility]PITALWNCLIA [id number] [address] LABCLIA [id number] [place] [address] [place] Basophils/100 WBC (Bld) 0.0 % Normal [facility] Comment on above: Order Comment: Speci men Type: BLOOD SPECIMENOrdering Facility: [facility] Address: [address] [place] [address] Performed By: #### 5 7021-8 ####[facility] FLORIDAA [id number] [address] LABCLIA [id number] [place] [address] [place] Differential cell count method Nom (Bld) Manual Normal [facility] Comment on above: Order Comment: Speci men Type: BLOOD SPECIMENOrdering Facility: [facility] Address: [address] [place] [address] Performed By: #### 5 7021-8 ####[facility] HOSPITALWNCLIA [id number] [address] LABCLIA [id number] [place] [address] [place] Eosinophils (Bld) [#/Vol] 0.00 10*3/uL Normal <0.46 [facility] Comment on above: Order Comment: Speci men Type: BLOOD SPECIMENOrdering Facility: [facility] Address: [address] [place] [address] Performed By: #### 5 7021-8 ####[facility] MILLTOWNCLIA [id number] [address] LABCLIA [id number] [place] [address] [place] Eosinophils/100 WBC (Bld) 0.0 % Normal [facility] Comment on above: Order Comment: Speci men Type: BLOOD SPECIMENOrdering Facility: [facility] Address: [address] [place] [address] Performed By: #### 5 7021-8 ####[facility] HOSPITALWAKLIA [id number] [address] LABCLIA [id number] [place] [address] [place] Erythrocyte distribution width (RBC) [Ratio] 15.1 % High 11.5-15.0 [facility] Comment on above: Order Comment: Speci men Type: BLOOD SPECIMENOrdering Facility: [facility] Address: [address] [place] [address] Performed By: #### 5 7021-8 ####[facility]OS[facility]ITALWNCLIA [id number] [address] LABCLIA [id number] [place] [address] [place] Hematocrit (Bld) [Volume fraction] 33.1 % Low 39.0-51.0 [facility] Comment on above: Order Comment: Speci men Type: BLOOD SPECIMENOrdering Facility: [facility] Address: [address] [place] [address] Performed By: #### 5 7021-8 ####[facility] MILLWNCLIA [id number] [address] LABCLIA [id number] [place] [address] [place] Hemoglobin (Bld) [Mass/Vol] 11.3 g/dL Low 13.0-17.0 [facility] Comment on above: Order Comment: Speci men Type: BLOOD SPECIMENOrdering Facility: [facility] Address: [address] [place] [address] Performed By: #### 5 7021-8 ####[facility] MILLWAKLIA [id number] [address] LABCLIA [id number] [place] [address] [place] Lymphocytes (Bld) [#/Vol] 2.87 10*3/uL Normal 1.00-4.00 [facility] Comment on above: Order Comment: Speci men Type: BLOOD SPECIMENOrdering Facility: [facility] Address: [address] [place] [address] Performed By: #### 5 7021-8 ####[facility]ICAL CENTERLIA [id number] [address] LABCLIA [id number] [place] [address] [place] Lymphocytes/100 WBC (Bld) 12.1 % Normal [facility] Comment on above: Order Comment: Speci men Type: BLOOD SPECIMENOrdering Facility: [facility] Address: [address] [place] [address] Performed By: #### 5 7021-8 ####[facility] MEDICAL CENTERLIA [id number] [address] LABCLIA [id number] [place] [address] [place] MCH (RBC) [Entitic mass] 29.6 pg Normal 26.0-34.0 [facility] Comment on above: Order Comment: Speci men Type: BLOOD SPECIMENOrdering Facility: [facility] Address: [address] [place] [address] Performed By: #### 5 7021-8 ####[facility] VAWNCLIA [id number] [address] LABCLIA [id number] [place] [address] [place] MCHC (RBC) [Mass/Vol] 34.1 g/dL Normal 30.5-36.0 [facility] Comment on above: Order Comment: Speci men Type: BLOOD SPECIMENOrdering Facility: [facility] Address: [address] [place] [address] Performed By: #### 5 7021-8 ####[facility] HOSPITALCRISTOFERLIA [id number] [address] LABCLIA [id number] [place] [address] [place] MCV (RBC) [Entitic vol] 86.6 fL Normal 80.0-100.0 [facility] Comment on above: Order Comment: Speci men Type: BLOOD SPECIMENOrdering Facility: [facility] Address: [address] [place] [address] Performed By: #### 5 7021-8 ####[facility]ITALWNCLIA [id number] [address] LABCLIA [id number] [place] [address] [place] Metamyelocytes/100 WBC (Bld) 0.9 % Normal [facility] Comment on above: Order Comment: Speci men Type: BLOOD SPECIMENOrdering Facility: [facility] Address: [address] [place] [address] Performed By: #### 5 7021-8 ####[facility] HOSPITALCRISTOFERLIA [id number] [address] LABCLIA [id number] [place] [address] [place] Monocytes (Bld) [#/Vol] 0.81 10*3/uL Normal <0.87 [facility] Comment on above: Order Comment: Speci men Type: BLOOD SPECIMENOrdering Facility: [facility] Address: [address] [place] [address] Performed By: #### 5 7021-8 ####[facility]ITALWNCLIA [id number] [address] LABCLIA [id number] [place] [address] [place] Monocytes/100 WBC (Bld) 3.4 % Normal [facility] Comment on above: Order Comment: Speci men Type: BLOOD SPECIMENOrdering Facility: [facility] Address: [address] [place] [address] Performed By: #### 5 7021-8 ####[facility] MEDICAL CENTERLIA [id number] [address] STATES [facility] LABCLIA [id number] [place] [address] [place] MYELO% 0.9 % Normal [facility] Comment on above: Order Comment: Speci men Type: BLOOD SPECIMENOrdering Facility: [facility] Address: [address] [place] [address] Performed By: #### 5 7021-8 ####[facility] MILLWNCLIA [id number] [place] [address] [place] [facility] LABCLIA [id number] [address] [address] [place] Neutrophils (Bld) [#/Vol] 19.61 10*3/uL High 1.45-7.50 [facility] Comment on above: Order Comment: Speci men Type: BLOOD SPECIMENOrdering Facility: [facility] Address: [address] [place] [address] Performed By: #### 5 7021-8 ####[facility] MEDICAL CENTERLIA [id number] [address] LABCLIA [id number] [place] [address] [place] Neutrophils/100 WBC (Bld) 82.7 % Normal [facility] Comment on above: Order Comment: Speci men Type: BLOOD SPECIMENOrdering Facility: [facility] Address: [address] [place] [address] Performed By: #### 5 7021-8 ####[facility] MED[facility] CENTERLIA [id number] [address] LABCLIA [id number] [place] [address] [place] Nucleated RBC (Bld) [#/Vol] 10*3/uL Normal <0.01 [facility] Comment on above: Order Comment: Speci men Type: BLOOD SPECIMENOrdering Facility: [facility] Address: [address] [place] [address] Performed By: #### 5 7021-8 ####[facility] CENTERLIA [id number] [address] LABCLIA [id number] [place] [address] [place] Nucleated RBC/100 WBC (Bld) [Ratio] 0.0 /100 WBC Normal [facility] Comment on above: Order Comment: Speci men Type: BLOOD SPECIMENOrdering Facility: [facility] Address: [address] [place] [address] Performed By: #### 5 7021-8 ####[facility] MILLTOWNCLIA [id number] [address] LABCLIA [id number] [place] [address] [place] Ovalocytes LM Ql (Bld) Few Normal [facility] Comment on above: Order Comment: Speci men Type: BLOOD SPECIMENOrdering Facility: [facility] Address: [address] [place] [address] Performed By: #### 5 7021-8 ####[facility] MILLWNCLIA [id number] [address] LABCLIA [id number] [place] [address] [place] Platelet mean volume (Bld) [Entitic vol] 9.2 fL Normal 9.0-12.7 [facility] Comment on above: Order Comment: Speci men Type: BLOOD SPECIMENOrdering Facility: [facility] Address: [address] [place] [address] Performed By: #### 5 7021-8 ####[facility] MILLTOWNCLIA [id number] [address] LABCLIA [id number] [place] [address] [place] Platelets (Bld) [#/Vol] 274 10*3/uL Normal 150-400 [facility] Comment on above: Order Comment: Speci men Type: BLOOD SPECIMENOrdering Facility: [facility] Address: [address] [place] [address] Performed By: #### 5 7021-8 ####[facility] MILLTOWNCLIA [id number] [address] LABCLIA [id number] [place] [address] [place] Platelets Estimate (Bld) [#/Vol] Adequate Normal [facility] Comment on above: Order Comment: Speci men Type: BLOOD SPECIMENOrdering Facility: [facility] Address: [address] [place] [address] Performed By: #### 5 7021-8 ####[facility] MILLWNCLIA [id number] [place] [address] [place] [facility] LABCLIA [id number] [place] [address] [place] Polychromasia LM Ql (Bld) Slight Normal [facility] Comment on above: Order Comment: Speci men Type: BLOOD SPECIMENOrdering Facility: [facility] Address: [address] [place] [address] Performed By: #### 5 7021-8 ####[facility] CENTERLIA [id number] [address] STATES OF [facility] LABCLIA [id number] [place] [address] [place] RBC (Bld) [#/Vol] 3.82 10*6/uL Low 4.20-6.00 [facility] Comment on above: Order Comment: Speci men Type: BLOOD SPECIMENOrdering Facility: [facility] Address: [address] [place] [address] Performed By: #### 5 7021-8 ####[facility] CENTERLIA [id number] [address] STATES OF [facility] LABCLIA [id number] [place] [address] [place] RED CELL MORPH Reviewed: see result s of individual morphologies Normal [facility] Comment on above: Order Comment: Speci men Type: BLOOD SPECIMENOrdering Facility: [facility] Address: [address] [place] [address] Performed By: #### 5 7021-8 ####[facility] MILLTOWNCLIA [id number] [address] LABCLIA [id number] [address] [address] [place] Toxic granules LM Ql (Bld) Present Normal [facility] Comment on above: Order Comment: Speci men Type: BLOOD SPECIMENOrdering Facility: [facility] Address: [address] [place] [address] Performed By: #### 5 7021-8 ####[facility] CENTERLIA [id number] [address] LABCLIA [id number] [place] [address] [place] WBC (Bld) [#/Vol] 23.71 10*3/uL High 3.70-11.00 [facility] Comment on above: Order Comment: Speci men Type: BLOOD SPECIMENOrdering Facility: [facility] Address: [address] [place] [address] Performed By: #### 5 7021-8 ####[facility]ITALWNCLIA [id number] [address] LABCLIA [id number] [place] [address] [place] WBC Left Shift Ql (Bld) Present Normal [facility] Comment on above: Order Comment: Speci men Type: BLOOD SPECIMENOrdering Facility: [facility] Address: [address] [place] [address] Performed By: #### 5 7021-8 ####[facility] MILLTOWNCLIA [id number] [address] LABCLIA [id number] [place] [address] [place] CNOVSPon 10-06-2023 CNOVSP Normal [facility] CNPNon 10-06-2023 CNPN Normal [facility] Cancer Ag19-9 SerPl-aCncon 0 10-06-2023 Cancer Ag 19-9 Qn 113.0 [arb'U]/mL High <36.0 [facility] Comment on above: Order Comment: Speci men Type: BLOOD SPECIMENOrdering Facility: [facility] Address: [address] [place] [address] Result Comment: Rust er antigen 19-9 test is used as an aid in monitoring response to treatment or recurrence in patients with established pancreatic, hepatobiliary, or gastrointestinal malignancies. Clinical correlation is required.The CA 19-9 Antigen test was performed using the Nerveda Unicel DXI paramagnetic particle chemiluminescent immunoassay method. Results obtained with different assay methods or kits cannot be used interchangeably. Performed By: #### 2 4108-3 ####[facility] LABCLIA [id number] [place] [address] [place] Comprehensive metabolic 2000 panelOrdered By: Asiya Dumont on 10-06-2023 Albumin [Mass/Vol] 3.5 g/dL Low 3.9 - 4.9 g/dL [facility] ALP [Catalytic activity/Vol] 156 U/L High 38 - 113 U/L [facility] ALT [Catalytic activity/Vol] 20 U/L 10 - 54 U/L [facility] Anion gap [Moles/Vol] 9 mmol/L 9 - 18 mmol/L [facility] AST [Catalytic activity/Vol] 26 U/L 14 - 40 U/L [facility] Bilirubin [Mass/Vol] 0.3 mg/dL 0.2 - 1.3 mg/dL [facility] Calcium [Mass/Vol] 9.1 mg/dL 8.5 - 10. 2 mg/dL [facility] Chloride [Moles/Vol] 109 mmol/L High 97 - 105 mmol/L [facility] CO2 [Moles/Vol] 21 mmol/L Low 22 - 30 mmol/L [facility] Creatinine [Mass/Vol] 1.32 mg/dL High 0.73 - 1.22 mg/dL [facility] GFR/1.73 sq M.predicted among non-blacks MDRD (S/P/Bld) [Vol rate/Area] 58 mL/min/{1.73_m2} Low - PINF [facility] Comment on above: Estimated Glomerular Filtration Rate (eGFR) is calculated using the 2020 CKD-EPI creatinine equation. This equation utilizes serum creatinine, sex, and age as parameters. The creatinine assay has traceable calibration to isotope dilution-mass spectrometry. Refer to KDIGO guidelines for clinical interpretation. In patients with unstable renal function, e.g. those with acute kidney injury, the eGFR may not accurately reflect actual GFR. Glucose [Mass/Vol] 149 mg/dL High 74 - 99 mg/dL [facility] Comment on above: The [place] Diabete s Association (ADA) provides guidance for cutoff values for fasting glucose and random glucose. The ADA defines fasting as no caloric intake for at least 8 hours. Fasting plasma glucose results between 100 to 125 mg/dL indicate increased risk for diabetes (prediabetes). Fasting plasma glucose results greater than or equal to 126 mg/dL meet the criteria for diagnosis of diabetes. In the absence of unequivocal hyperglycemia, results should be confirmed by repeat testing. In a patient with classic symptoms of hyperglycemia or hyperglycemic crisis, random plasma glucose results greater than or equal to 200 mg/dL meet the criteria for diagnosis of diabetes. Reference: Standards of Medical Care in Diabetes 2016, [place] Diabetes Association. Diabetes Care. 2016.39(Suppl 1). Interpretation and review of laboratory results Abnormal [facility] Potassium [Moles/Vol] 2.6 mmol/L Low 3.7 - 5.1 mmol/L [facility] Protein [Mass/Vol] 5.9 g/dL Low 6.3 - 8.0 g/dL [facility] Sodium [Moles/Vol] 139 mmol/L 136 - 144 mmol/L [facility] Urea nitrogen [Mass/Vol] 22 mg/dL 9 - 24 mg/dL [facility] Comprehensive metabolic 2000 panelon 10-06-2023 Albumin [Mass/Vol] 3.5 g/dL Low 3.9-4.9 [facility] Comment on above: Order Comment: Speci men Type: BLOOD SPECIMENOrdering Facility: [facility] Address: [address] [place] [address] Performed By: #### 2 4323-8, 81065-4 ####[facility] MILLTOWNCLIA [id number] [place] [address] [place] ALP [Catalytic activity/Vol] 156 U/L High 38-113 [facility] Comment on above: Order Comment: Speci men Type: BLOOD SPECIMENOrdering Facility: [facility] Address: [address] [place] [address] Performed By: #### 2 4323-8, ####[facility] MILLTOWNCLIA [id number] [place] [address] [place] ALT [Catalytic activity/Vol] 20 U/L Normal 10-54 [facility] Comment on above: Order Comment: Speci men Type: BLOOD SPECIMENOrdering Facility: [facility] Address: [address] [place] [address] Performed By: #### 2 4323-8, ####[facility] MILLTOWNCLIA [id number] [place] [address] [place] Anion gap [Moles/Vol] 9 mmol/L Normal 9-18 [facility] Comment on above: Order Comment: Speci men Type: BLOOD SPECIMENOrdering Facility: [facility] Address: [address] [place] [address] Performed By: #### 2 4323-8, ####[facility] MILLTOWNCLIA [id number] [place] [address] [place] AST [Catalytic activity/Vol] 26 U/L Normal 14-40 [facility] Comment on above: Order Comment: Speci men Type: BLOOD SPECIMENOrdering Facility: [facility] Address: [address] [place] [address] Performed By: #### 2 4323-8, ####[facility] MILLTOWNCLIA [id number] [place] [address] [place] Bilirubin [Mass/Vol] 0.3 mg/dL Normal 0.2-1.3 [facility] Comment on above: Order Comment: Speci men Type: BLOOD SPECIMENOrdering Facility: [facility] Address: [address] [place] [address] Performed By: #### 2 4323-8, ####[facility] MILLTOWNCLIA [id number] [place] [address] [place] Calcium [Mass/Vol] 9.1 mg/dL Normal 8.5-10.2 [facility] Comment on above: Order Comment: Speci men Type: BLOOD SPECIMENOrdering Facility: [facility] Address: [address] [place] [address] Performed By: #### 2 4323-8, ####[facility]PITALWNCLIA [id number] [place] [address] [place] Chloride [Moles/Vol] 109 mmol/L High 97-105 [facility] Comment on above: Order Comment: Speci men Type: BLOOD SPECIMENOrdering Facility: [facility] Address: [address] [place] [address] Performed By: #### 2 4323-8, ####[facility] MILLTOWNCLIA [id number] [place] [address] [place] CO2 [Moles/Vol] 21 mmol/L Low 22-30 [facility] Comment on above: Order Comment: Speci men Type: BLOOD SPECIMENOrdering Facility: [facility] Address: [address] [place] [address] Performed By: #### 2 4323-8, ####[facility] MILLTOWNCLIA [id number] [place] [address] [place] Creatinine [Mass/Vol] 1.32 mg/dL High 0.73-1.22 [facility] Comment on above: Order Comment: Lay barkley Type: BLOOD SPECIMENOrdering Facility: [facility] Address: [address] [place] [address] Performed By: #### 2 4323-8, ####[facility] HOSPITALNCLI [id number] [place] [address] [place] Creatinine and Glomerular filtration rate.predicted panel (S/P/Bld) 58 mL/min/1.73m??? Low >=60 [facility] Comment on above: Order Comment: Lay barkley Type: BLOOD SPECIMENOrdering Facility: [facility] Address: [address] [place] [address] Result Comment: Emely mated Glomerular Filtration Rate (eGFR) is calculated using the 2020 CKD-EPI creatinine equation. This equation utilizes serum creatinine, sex, and age as parameters. The creatinine assay has traceable calibration to isotope dilution-mass spectrometry. Refer to KDIGO guidelines for clinical interpretation. In patients with unstable renal function, e.g. those with acute kidney injury, the eGFR may not accurately reflect actual GFR. Performed By: #### 2 4323-8, ####[facility] HOSPITALNCA [id number] [place] [address] [place] Glucose [Mass/Vol] 149 mg/dL High 74-99 [facility] Comment on above: Order Comment: Lay barkley Type: BLOOD SPECIMENOrdering Facility: [facility] Address: [address] [place] [address] Result Comment: The [place] Diabetes Association (ADA) provides guidance for cutoff values for fasting glucose and random glucose. The ADA defines fasting as no caloric intake for at least 8 hours. Fasting plasma glucose results between 100 to 125 mg/dL indicate increased risk for diabetes (prediabetes).Fasting plasma glucose results greater than or equal to 126 mg/dL meet the criteria for diagnosis of diabetes. In the absence of unequivocal hyperglycemia, results should be confirmed by repeat testing. In a patient with classic symptoms of hyperglycemia or hyperglycemic crisis, random plasma glucose results greater than or equal to 200 mg/dL meet the criteria for diagnosis of diabetes.Reference: Standards of Medical Care in Diabetes 2016, [place] Diabetes Association. Diabetes Care. 2016.39(Suppl 1). Performed By: #### 2 4322-, ####[facility] [id number] [place] [address] [place] Potassium [Moles/Vol] 2.6 mmol/L Low 3.7-5.1 [facility] Comment on above: Order Comment: Speci men Type: BLOOD SPECIMENOrdering Facility: [facility] Address: [address] [place] [address] Performed By: #### 2 4323-01, ####[facility] [id number] [place] [address] [place] Protein [Mass/Vol] 5.9 g/dL Low 6.3-8.0 [facility] Comment on above: Order Comment: Speci men Type: BLOOD SPECIMENOrdering Facility: [facility] Address: [address] [place] [address] Performed By: #### 2 4323-01, ####[facility] [id number] [place] [address] [place] Sodium [Moles/Vol] 139 mmol/L Normal 136-144 [facility] Comment on above: Order Comment: Speci men Type: BLOOD SPECIMENOrdering Facility: [facility] Address: [address] [place] [address] Performed By: #### 2 4323-01, ####[facility] [id number] [place] [address] [place] Urea nitrogen [Mass/Vol] 22 mg/dL Normal 9-24 [facility] Comment on above: Order Comment: Speci men Type: BLOOD SPECIMENOrdering Facility: [facility] Address: [address] [place] [address] Performed By: #### 2 4323-8, 56659-5 ####[facility] FLORIDAA [id number] [place] [address] [place] MAGNESIUM BLDon 10-06-2023 Magnesium [Mass/Vol] 1.8 mg/dL 1.7 - 2.3 mg/dL [facility] Magnesium SerPl-mCncon 10-05 Magnesium [Mass/Vol] 1.8 mg/dL Normal 1.7-2.3 [facility] Comment on above: Order Comment: Speci men Type: BLOOD SPECIMENOrdering Facility: [facility] Address: [address] [place] [address] Performed By: #### 2 4323-8, 63567-2 ####[facility]OSPITALNCMO[facility] [id number] [place] [address] [place] Magnesium [Mass/Vol]on 10-05 Interpretation and review of laboratory results Normal [facility] CNPNon 09-24-2023 CNPN Normal [facility] CBC W Auto Differential pane l (Bld)on 09-22-2023 Basophils (Bld) [#/Vol] 0.00 10*3/uL Normal <0.11 [facility] Comment on above: Order Comment: Speci men Type: BLOOD SPECIMENOrdering Facility: [facility] Address: [address] [place] [address] Performed By: #### 5 7021-8 ####[facility] [id number] [place] [address] [place] [facility] LABCLIA [id number] [place] [address] [place] Basophils/100 WBC (Bld) 0.0 % Normal [facility] Comment on above: Order Comment: Speci men Type: BLOOD SPECIMENOrdering Facility: [facility] Address: [address] [place] [address] Performed By: #### 5 7021-8 ####[facility] MILLRAULWNCLIA [id number] [address] LABCLIA [id number] [place] [address] [place] Differential cell count method Nom (Bld) Manual Normal [facility] Comment on above: Order Comment: Speci men Type: BLOOD SPECIMENOrdering Facility: [facility] Address: [address] [place] [address] Performed By: #### 5 7021-8 ####[facility]ITALWNCLIA [id number] [address] LABCLIA [id number] [place] [address] [place] Eosinophils (Bld) [#/Vol] 0.30 10*3/uL Normal <0.46 [facility] Comment on above: Order Comment: Speci men Type: BLOOD SPECIMENOrdering Facility: [facility] Address: [address] [place] [address] Performed By: #### 5 7021-8 ####[facility]ITALWNCLIA [id number] [address] LABCLIA [id number] [place] [address] [place] Eosinophils/100 WBC (Bld) 1.8 % Normal [facility] Comment on above: Order Comment: Speci men Type: BLOOD SPECIMENOrdering Facility: [facility] Address: [address] [place] [address] Performed By: #### 5 7021-8 ####[facility] MILLTOWNCLIA [id number] [address] LABCLIA [id number] [place] [address] [place] Erythrocyte distribution width (RBC) [Ratio] 15.0 % Normal 11.5-15.0 [facility] Comment on above: Order Comment: Speci men Type: BLOOD SPECIMENOrdering Facility: [facility] Address: [address] [place] [address] Performed By: #### 5 7021-8 ####[facility] CENTERLIA [id number] [address] LABCLIA [id number] [place] [address] [place] Hematocrit (Bld) [Volume fraction] 33.2 % Low 39.0-51.0 [facility] Comment on above: Order Comment: Speci men Type: BLOOD SPECIMENOrdering Facility: [facility] Address: [address] [place] [address] Performed By: #### 5 7021-8 ####[facility]AA [id number] [address] LABCLIA [id number] [place] [address] [place] Hemoglobin (Bld) [Mass/Vol] 11.5 g/dL Low 13.0-17.0 [facility] Comment on above: Order Comment: Speci men Type: BLOOD SPECIMENOrdering Facility: [facility] Address: [address] [place] [address] Performed By: #### 5 7021-8 ####[facility] [id number] [address] LABCLIA [id number] [place] [address] [place] Lymphocytes (Bld) [#/Vol] 2.46 10*3/uL Normal 1.00-4.00 [facility] Comment on above: Order Comment: Speci men Type: BLOOD SPECIMENOrdering Facility: [facility] Address: [address] [place] [address] Performed By: #### 5 7021-8 ####[facility] H[facility]PITALWNCLIA [id number] [address] LABCLIA [id number] [place] [address] [place] Lymphocytes/100 WBC (Bld) 14.9 % Normal [facility] Comment on above: Order Comment: Speci men Type: BLOOD SPECIMENOrdering Facility: [facility] Address: [address] [place] [address] Performed By: #### 5 7021-8 ####[facility] CENTERLIA [id number] [address] STATES [facility] LABCLIA [id number] [place] [address] [place] MCH (RBC) [Entitic mass] 30.2 pg Normal 26.0-34.0 [facility] Comment on above: Order Comment: Speci men Type: BLOOD SPECIMENOrdering Facility: [facility] Address: [address] [place] [address] Performed By: #### 5 7021-8 ####[facility]ITALWNCLIA [id number] [address] STATES [facility] LABCLIA [id number] [place] [address] [place] MCHC (RBC) [Mass/Vol] 34.6 g/dL Normal 30.5-36.0 [facility] Comment on above: Order Comment: Speci men Type: BLOOD SPECIMENOrdering Facility: [facility] Address: [address] [place] [address] Performed By: #### 5 7021-8 ####[facility] MILLTOWNCLIA [id number] [address] LABCLIA [id number] [place] [address] [place] MCV (RBC) [Entitic vol] 87.1 fL Normal 80.0-100.0 [facility] Comment on above: Order Comment: Speci men Type: BLOOD SPECIMENOrdering Facility: [facility] Address: [address] [place] [address] Performed By: #### 5 7021-8 ####[facility] HOSPITALNCLIA [id number] [address] LABCLIA [id number] [place] [address] [place] Metamyelocytes/100 WBC (Bld) 0.9 % Normal [facility] Comment on above: Order Comment: Speci men Type: BLOOD SPECIMENOrdering Facility: [facility] Address: [address] [place] [address] Performed By: #### 5 7021-8 ####[facility]ITALWNCLIA [id number] [address] LABCLIA [id number] [place] [address] [place] Monocytes (Bld) [#/Vol] 0.88 10*3/uL High <0.87 [facility] Comment on above: Order Comment: Speci men Type: BLOOD SPECIMENOrdering Facility: [facility] Address: [address] [place], [place] [address] Performed By: #### 5 7021-8 ####[facility] MILLWNCLIA [id number] [address] LABCLIA [id number] [place] [address] [place] Monocytes/100 WBC (Bld) 5.3 % Normal [facility] Comment on above: Order Comment: Speci men Type: BLOOD SPECIMENOrdering Facility: [facility] Address: [address] [place] [address] Performed By: #### 5 7021-8 ####[facility] MILLWNCLIA [id number] [address] LABCLIA [id number] [place] [address] [place] MYELO% 0.9 % Normal [facility] Comment on above: Order Comment: Speci men Type: BLOOD SPECIMENOrdering Facility: [facility] Address: [address] [place] [address] Performed By: #### 5 7021-8 ####[facility] CENTERLIA [id number] [address] LABCLIA [id number] [place] [address] [place] Neutrophils (Bld) [#/Vol] 12.58 10*3/uL High 1.45-7.50 [facility] Comment on above: Order Comment: Speci men Type: BLOOD SPECIMENOrdering Facility: [facility] Address: [address] [place] [address] Performed By: #### 5 7021-8 ####[facility]ITALWNCLIA [id number] [address] LABCLIA [id number] [place] [address] [place] Neutrophils/100 WBC (Bld) 76.2 % Normal [facility] Comment on above: Order Comment: Speci men Type: BLOOD SPECIMENOrdering Facility: [facility] Address: [address] [place] [address] Performed By: #### 5 7021-8 ####[facility] MILLTOWNCLIA [id number] [address] LABCLIA [id number] [place] [address] [place] Nucleated RBC (Bld) [#/Vol] 10*3/uL Normal <0.01 [facility] Comment on above: Order Comment: Speci men Type: BLOOD SPECIMENOrdering Facility: [facility] Address: [address] [place] [address] Performed By: #### 5 7021-8 ####[facility] MILLWNCLIA [id number] [address] LABCLIA [id number] [place] [address] [place] Nucleated RBC/100 WBC (Bld) [Ratio] 0.0 /100 WBC Normal [facility] Comment on above: Order Comment: Speci men Type: BLOOD SPECIMENOrdering Facility: [facility] Address: [address] [place] [address] Performed By: #### 5 7021-8 ####[facility]ITALWNCLIA [id number] [address] LABCLIA [id number] [place] [address] [place] Ovalocytes LM Ql (Bld) Few Normal [facility] Comment on above: Order Comment: Speci men Type: BLOOD SPECIMENOrdering Facility: [facility] Address: [address] [place] [address] Performed By: #### 5 7021-8 ####[facility] MILLTOWNCLIA [id number] [address] LABCLIA [id number] [place] [address] [place] Platelet mean volume (Bld) [Entitic vol] 9.1 fL Normal 9.0-12.7 [facility] Comment on above: Order Comment: Speci men Type: BLOOD SPECIMENOrdering Facility: [facility] Address: [address] [place] [address] Performed By: #### 5 7021-8 ####[facility] MILLTOWNCLIA [id number] [place] [address] [place] [facility] LABCLIA [id number] [place] [address] [place] Platelets (Bld) [#/Vol] 221 10*3/uL Normal 150-400 [facility] Comment on above: Order Comment: Speci men Type: BLOOD SPECIMENOrdering Facility: [facility] Address: [address] [place] [address] Performed By: #### 5 7021-8 ####[facility] MILLWNCLIA [id number] [place] [address] [place] [facility] LABCLIA [id number] [place] [address] [place] Platelets Estimate (Bld) [#/Vol] Adequate Normal [facility] Comment on above: Order Comment: Speci men Type: BLOOD SPECIMENOrdering Facility: [facility] Address: [address] [place] [address] Performed By: #### 5 7021-8 ####[facility] MILLTOWNCLIA [id number] [place] [address] [place] [facility] LABCLIA [id number] [place] [address] [place] Polychromasia LM Ql (Bld) Slight Normal [facility] Comment on above: Order Comment: Speci men Type: BLOOD SPECIMENOrdering Facility: [facility] Address: [address] [place] [address] Performed By: #### 5 7021-8 ####[facility] MILLWNCLIA [id number] [place] [address] [place] [facility] LABCLIA [id number] [place] [address] [place] RBC (Bld) [#/Vol] 3.81 10*6/uL Low 4.20-6.00 [facility] Comment on above: Order Comment: Speci men Type: BLOOD SPECIMENOrdering Facility: [facility] Address: [address] [place] [address] Performed By: #### 5 7021-8 ####[facility] HOSPITALWAKLIA [id number] [address] LABCLIA [id number] [place] [address] [place] RED CELL MORPH Reviewed: see result s of individual morphologies Normal [facility] Comment on above: Order Comment: Speci men Type: BLOOD SPECIMENOrdering Facility: [facility] Address: [address] [place] [address] Performed By: #### 5 7021-8 ####[facility] H[facility]PITALNCLIA [id number] [address] LABCLIA [id number] [place] [address] [place] Toxic granules LM Ql (Bld) Present Normal [facility] Comment on above: Order Comment: Speci men Type: BLOOD SPECIMENOrdering Facility: [facility] Address: [address] [place] [address] Performed By: #### 5 7021-8 ####[facility]ITALWNCLIA [id number] [address] [place] [address], [address] LABCLIA [id number] [place] [address] [place] WBC (Bld) [#/Vol] 16.51 10*3/uL High 3.70-11.[address] [facility] Comment on above: Order Comment: Speci men Type: BLOOD SPECIMENOrdering Facility: [facility] Address: [address] [place] [address] Performed By: #### 5 7021-8 ####[facility] MILLWNCLIA [id number] [address] LABCLIA [id number] [place] [address] [place] WBC Left Shift Ql (Bld) Present Normal [facility] Comment on above: Order Comment: Speci men Type: BLOOD SPECIMENOrdering Facility: [facility] Address: [address] [place] [address] Performed By: #### 5 7021-8 ####[facility] FLORIDAA [id number] [address] LABCLIA [id number] [place] [address] [place] CNOVSPon 09-22-2023 CNOVSP Normal [facility] CNPNon 09-22-2023 CNPN Normal [facility] Cancer Ag19-9 SerPl-aCncon 0 09-22-2023 Cancer Ag 19-9 Qn 105.0 [arb'U]/mL High <36.0 [facility] Comment on above: Order Comment: Speci men Type: BLOOD SPECIMENOrdering Facility: [facility] Address: [address] [place] [address] Result Comment: Rust er antigen 19-9 test is used as an aid in monitoring response to treatment or recurrence in patients with established pancreatic, hepatobiliary, or gastrointestinal malignancies. Clinical correlation is required.The CA 19-9 Antigen test was performed using the Álvaro Clovis Unicel DXI paramagnetic particle chemiluminescent immunoassay method. Results obtained with different assay methods or kits cannot be used interchangeably. Performed By: #### 2 4108-3 ####[facility] LABCLIA [id number] [place] [address] [place] Comprehensive metabolic 2000 panelon 09-22-2023 Albumin [Mass/Vol] 3.7 g/dL Low 3.9 - 4.9 g/dL [facility] ALP [Catalytic activity/Vol] 137 U/L High 38 - 113 U/L [facility] ALT [Catalytic activity/Vol] 19 U/L 10 - 54 U/L [facility] Anion gap [Moles/Vol] 11 mmol/L 9 - 18 mmol/L [facility] AST [Catalytic activity/Vol] 23 U/L 14 - 40 U/L [facility] Bilirubin [Mass/Vol] 0.4 mg/dL 0.2 - 1.3 mg/dL [facility] Calcium [Mass/Vol] 9.1 mg/dL 8.5 - 10. 2 mg/dL [facility] Chloride [Moles/Vol] 108 mmol/L High 97 - 105 mmol/L [facility] CO2 [Moles/Vol] 21 mmol/L Low 22 - 30 mmol/L [facility] Creatinine [Mass/Vol] 1.10 mg/dL 0.73 - 1.22 mg/dL [facility] Estimated Glomerular Filtration Rate 72 mL/min/1.73m >=60 mL/min/1.7 3m [facility] Glucose [Mass/Vol] 122 mg/dL High 74 - 99 mg/dL [facility] Potassium [Moles/Vol] 3.0 mmol/L Low 3.7 - 5.1 mmol/L [facility] Protein [Mass/Vol] 6.1 g/dL Low 6.3 - 8.0 g/dL [facility] Sodium [Moles/Vol] 140 mmol/L 136 - 144 mmol/L [facility] Urea nitrogen [Mass/Vol] 31 mg/dL High 9 - 24 mg/dL [facility] Albumin [Mass/Vol] 3.7 g/dL Low 3.9-4.9 [facility] Comment on above: Order Comment: Speci men Type: BLOOD SPECIMENOrdering Facility: [facility] Address: [address] [place] [address] Performed By: #### 1 9123-9, 66937-1 ####[facility] MILLTOWNCLIA [id number] [place] [address] [place] ALP [Catalytic activity/Vol] 137 U/L High 38-113 [facility] Comment on above: Order Comment: Speci men Type: BLOOD SPECIMENOrdering Facility: [facility] Address: [address] [place] [address] Performed By: #### 1 9123-9, 18984-7 ####[facility] VAWCRISTOFERLIA [id number] [place] [address] [place] ALT [Catalytic activity/Vol] 19 U/L Normal 10-54 [facility] Comment on above: Order Comment: Speci men Type: BLOOD SPECIMENOrdering Facility: [facility] Address: [address] [place] [address] Performed By: #### 1 9123-9, 72953-3 ####[facility] VAWNCLIA [id number] [place] [address] [place] Anion gap [Moles/Vol] 11 mmol/L Normal 9-18 [facility] Comment on above: Order Comment: Speci men Type: BLOOD SPECIMENOrdering Facility: [facility] Address: [address] [place] [address] Performed By: #### 1 9123-9, 15950-4 ####[facility] MILLTOWNCLIA [id number] [place] [address] [place] AST [Catalytic activity/Vol] 23 U/L Normal 14-40 [facility] Comment on above: Order Comment: Speci men Type: BLOOD SPECIMENOrdering Facility: [facility] Address: [address] [place] [address] Performed By: #### 1 9123-9, 06039-3 ####[facility] HOSPITALNCLIA [id number] [place] [address] [place] Bilirubin [Mass/Vol] 0.4 mg/dL Normal 0.2-1.3 [facility] Comment on above: Order Comment: Speci men Type: BLOOD SPECIMENOrdering Facility: [facility] Address: [address] [place] [address] Performed By: #### 1 9123-9, 03915-8 ####[facility] MILLTOWNCLIA [id number] [place] [address] [place] Calcium [Mass/Vol] 9.1 mg/dL Normal 8.5-10.2 [facility] Comment on above: Order Comment: Speci men Type: BLOOD SPECIMENOrdering Facility: [facility] Address: [address] [place] [address] Performed By: #### 1 9123-9, 01577-4 ####[facility] HOSPITALWNCLIA [id number] [place] [address] [place] Chloride [Moles/Vol] 108 mmol/L High 97-105 [facility] Comment on above: Order Comment: Speci men Type: BLOOD SPECIMENOrdering Facility: [facility] Address: [address] [place] [address] Performed By: #### 1 9123-9, 57405-5 ####[facility] MILLWNCLIA [id number] [place] [address] [place] CO2 [Moles/Vol] 21 mmol/L Low 22-30 [facility] Comment on above: Order Comment: Speci men Type: BLOOD SPECIMENOrdering Facility: [facility] Address: [address] [place] [address] Performed By: #### 1 9123-9, 30977-6 ####[facility] HOSPITALNCLIA [id number] [place] [address] [place] Creatinine [Mass/Vol] 1.10 mg/dL Normal 0.73-1.22 [facility] Comment on above: Order Comment: Lay barkley Type: BLOOD SPECIMENOrdering Facility: [facility] Address: [address] [place] [address] Performed By: #### 1 9123-9, 61465-4 ####[facility] HOSPITALNCLIA [id number] [place] [address] [place] Creatinine and Glomerular filtration rate.predicted panel (S/P/Bld) 72 mL/min/1.73m??? Normal >=60 [facility] Comment on above: Order Comment: Lay barkley Type: BLOOD SPECIMENOrdering Facility: [facility] Address: [address] [place] [address] Result Comment: Emely mated Glomerular Filtration Rate (eGFR) is calculated using the 2020 CKD-EPI creatinine equation. This equation utilizes serum creatinine, sex, and age as parameters. The creatinine assay has traceable calibration to isotope dilution-mass spectrometry. Refer to KDIGO guidelines for clinical interpretation. In patients with unstable renal function, e.g. those with acute kidney injury, the eGFR may not accurately reflect actual GFR. Performed By: #### 1 9123-9, 57915-0 ####[facility] HOSPITALNCLIA [id number] [place] [address] [place] Glucose [Mass/Vol] 122 mg/dL High 74-99 [facility] Comment on above: Order Comment: Lay barkley Type: BLOOD SPECIMENOrdering Facility: [facility] Address: [address] [place] [address] Result Comment: The [place] Diabetes Association (ADA) provides guidance for cutoff values for fasting glucose and random glucose. The ADA defines fasting as no caloric intake for at least 8 hours. Fasting plasma glucose results between 100 to 125 mg/dL indicate increased risk for diabetes (prediabetes).Fasting plasma glucose results greater than or equal to 126 mg/dL meet the criteria for diagnosis of diabetes. In the absence of unequivocal hyperglycemia, results should be confirmed by repeat testing. In a patient with classic symptoms of hyperglycemia or hyperglycemic crisis, random plasma glucose results greater than or equal to 200 mg/dL meet the criteria for diagnosis of diabetes.Reference: Standards of Medical Care in Diabetes 2016, [place] [employer] Association. Diabetes Care. 2016.39(Suppl 1). Performed By: #### 1 9123-9, 99797-6 ####[facility] HOSPITALNCLINorma [id number] [place] [address] [place] Potassium [Moles/Vol] 3.0 mmol/L Low 3.7-5.1 [facility] Comment on above: Order Comment: Speci men Type: BLOOD SPECIMENOrdering Facility: [facility] Address: [address] [place] [address] Performed By: #### 1 9123-9, 56635-7 ####[facility] FLORIDANorma [id number] [place] [address] [place] Protein [Mass/Vol] 6.1 g/dL Low 6.3-8.0 [facility] Comment on above: Order Comment: Speci men Type: BLOOD SPECIMENOrdering Facility: [facility] Address: [address] [place] [address] Performed By: #### 1 9123-9, 00956-1 ####[facility] HOSPITALNCROBERTA [id number] [place] [address] [place] Sodium [Moles/Vol] 140 mmol/L Normal 136-144 [facility] Comment on above: Order Comment: Speci men Type: BLOOD SPECIMENOrdering Facility: [facility] Address: [address] [place], [place] [address] Performed By: #### 1 9123-9, ####[facility] HOSPITALNCLIA [id number] [place] [address] [place] Urea nitrogen [Mass/Vol] 31 mg/dL High 9-24 [facility] Comment on above: Order Comment: Speci men Type: BLOOD SPECIMENOrdering Facility: [facility] Address: [address] [place], [place] [address] Performed By: #### 1 9123-9, 43419-5 ####[facility] CATHY DE DIOSQUECHEENCROBERTA [id number] [address] [place] MAGNESIUM BLDon 09-22-2023 Magnesium [Mass/Vol] 2.0 mg/dL 1.7 - 2.3 mg/dL [facility] Magnesium SerPl-mCncon 09-21 Magnesium [Mass/Vol] 2.0 mg/dL Normal 1.7-2.3 [facility] Comment on above: Order Comment: Speci men Type: BLOOD SPECIMENOrdering Facility: [facility] Address: [address] [place] [address] Performed By: #### 1 9123-9, 71946-3 ####[facility] HOSPITALNCLINorma [id number] [address] [place] CNPNon 09-15-2023 CNPN Normal [facility] CBC W Auto Differential pane l (Bld)on 09-08-2023 Basophils (Bld) [#/Vol] 0.06 10*3/uL <0.11 k/uL [facility] Basophils/100 WBC (Bld) 0.7 % [facility] Differential cell count method Nom (Bld) Auto [facility] Eosinophils (Bld) [#/Vol] 0.21 10*3/uL <0.46 k/uL [facility] Eosinophils/100 WBC (Bld) 2.5 % [facility] Erythrocyte distribution width (RBC) [Ratio] 15.0 % 11.5 - 15.0 % [facility] Hematocrit (Bld) [Volume fraction] 33.7 % Low 39.0 - 51.0 % [facility] Hemoglobin (Bld) [Mass/Vol] 11.5 g/dL Low 13.0 - 17.0 g/dL [facility] Immature granulocytes (Bld) [#/Vol] 0.04 10*3/uL <0.10 k/uL [facility] Immature granulocytes/100 WBC (Bld) 0.5 % [facility] Lymphocytes (Bld) [#/Vol] 1.47 10*3/uL 1.00 - 4.00 k/uL [facility] Lymphocytes/100 WBC (Bld) 17.7 % [facility] MCH (RBC) [Entitic mass] 29.7 pg 26.0 - 34.0 pg [facility] MCHC (RBC) [Mass/Vol] 34.1 g/dL 30.5 - 36.0 g/dL [facility] MCV (RBC) [Entitic vol] 87.1 fL 80.0 - 100.0 fL [facility] Monocytes (Bld) [#/Vol] 0.82 10*3/uL <0.87 k/uL [facility] Monocytes/100 WBC (Bld) 9.9 % [facility] Neutrophils (Bld) [#/Vol] 5.69 10*3/uL 1.45 - 7.50 k/uL [facility] Neutrophils/100 WBC (Bld) 68.7 % [facility] Nucleated RBC (Bld) [#/Vol] <0.01 k/uL [facility] Nucleated RBC/100 WBC (Bld) [Ratio] 0.0 /100 WBC [facility] Platelet mean volume (Bld) [Entitic vol] 8.6 fL Low 9.0 - 12.7 fL [facility] Platelets (Bld) [#/Vol] 255 10*3/uL 150 - 400 k/uL [facility] RBC (Bld) [#/Vol] 3.87 10*6/uL Low 4.20 - 6.00 m/uL [facility] WBC (Bld) [#/Vol] 8.29 10*3/uL 3.70 - 11.00 k/uL [facility] Basophils (Bld) [#/Vol] 0.06 10*3/uL Normal <0.11 [facility] Comment on above: Order Comment: Speci men Type: BLOOD SPECIMENOrdering Facility: [facility] Address: [address] [place] [address] Performed By: #### 5 7021-8 ####[facility] [id number] [place] [address] [place] Basophils/100 WBC (Bld) 0.7 % Normal [facility] Comment on above: Order Comment: Speci men Type: BLOOD SPECIMENOrdering Facility: [facility] Address: [address] [place] [address] Performed By: #### 5 7021-8 ####[facility] HOSPITALCRISTOFERLIA [id number] [place] [address] [place] Differential cell count method Nom (Bld) Auto Normal [facility] Comment on above: Order Comment: Speci men Type: BLOOD SPECIMENOrdering Facility: [facility] Address: [address] [place] [address] Performed By: #### 5 7021-8 ####[facility] HOSPITALCRISTOFERA [id number] [place] [address] [place] Eosinophils (Bld) [#/Vol] 0.21 10*3/uL Normal <0.46 [facility] Comment on above: Order Comment: Speci men Type: BLOOD SPECIMENOrdering Facility: [facility] Address: [address] [place] [address] Performed By: #### 5 7021-8 ####[facility] FLORIDAA [id number] [place] [address] [place] Eosinophils/100 WBC (Bld) 2.5 % Normal [facility] Comment on above: Order Comment: Speci men Type: BLOOD SPECIMENOrdering Facility: [facility] Address: [address] [place] [address] Performed By: #### 5 7021-8 ####[facility] MEDICAL CENTERLIA [id number] [place] [address] [place] Erythrocyte distribution width (RBC) [Ratio] 15.0 % Normal 11.5-15.0 [facility] Comment on above: Order Comment: Speci men Type: BLOOD SPECIMENOrdering Facility: [facility] Address: [address] [place] [address] Performed By: #### 5 7021-8 ####[facility] HOSPITALNCLIA [id number] [place] [address] [place] Hematocrit (Bld) [Volume fraction] 33.7 % Low 39.0-51.0 [facility] Comment on above: Order Comment: Speci men Type: BLOOD SPECIMENOrdering Facility: [facility] Address: [address] [place] [address] Performed By: #### 5 7021-8 ####[facility] [id number] [place] [address] [place] Hemoglobin (Bld) [Mass/Vol] 11.5 g/dL Low 13.0-17.0 [facility] Comment on above: Order Comment: Speci men Type: BLOOD SPECIMENOrdering Facility: [facility] Address: [address] [place] [address] Performed By: #### 5 7021-8 ####[facility] [id number] [place] [address] [place] Immature granulocytes (Bld) [#/Vol] 0.04 10*3/uL Normal <0.10 [facility] Comment on above: Order Comment: Speci men Type: BLOOD SPECIMENOrdering Facility: [facility] Address: [address] [place] [address] Performed By: #### 5 7021-8 ####[facility] MEDICAL CENTERLIA [id number] [place] [address] [place] Immature granulocytes/100 WBC (Bld) 0.5 % Normal [facility] Comment on above: Order Comment: Speci men Type: BLOOD SPECIMENOrdering Facility: [facility] Address: [address] [place] [address] Performed By: #### 5 7021-8 ####[facility] [id number] [place] [address] [place] Lymphocytes (Bld) [#/Vol] 1.47 10*3/uL Normal 1.00-4.00 [facility] Comment on above: Order Comment: Speci men Type: BLOOD SPECIMENOrdering Facility: [facility] Address: [address] [place] [address] Performed By: #### 5 7021-8 ####[facility] FLORIDAA [id number] [place] [address] [place] Lymphocytes/100 WBC (Bld) 17.7 % Normal [facility] Comment on above: Order Comment: Speci men Type: BLOOD SPECIMENOrdering Facility: [facility] Address: [address] [place] [address] Performed By: #### 5 7021-8 ####[facility]PITALNCMO[facility] [id number] [place] [address] [place] MCH (RBC) [Entitic mass] 29.7 pg Normal 26.0-34.0 [facility] Comment on above: Order Comment: Speci men Type: BLOOD SPECIMENOrdering Facility: [facility] Address: [address] [place] [address] Performed By: #### 5 7021-8 ####[facility] HOSPITALNCLI [id number] [place] [address] [place] MCHC (RBC) [Mass/Vol] 34.1 g/dL Normal 30.5-36.0 [facility] Comment on above: Order Comment: Speci men Type: BLOOD SPECIMENOrdering Facility: [facility] Address: [address] [place] [address] Performed By: #### 5 7021-8 ####[facility] HOSPITALNCLI [id number] [place] [address] [place] MCV (RBC) [Entitic vol] 87.1 fL Normal 80.0-100.0 [facility] Comment on above: Order Comment: Speci men Type: BLOOD SPECIMENOrdering Facility: [facility] Address: [address] [place] [address] Performed By: #### 5 7021-8 ####[facility] TYLER [id number] [place] [address] [place] Monocytes (Bld) [#/Vol] 0.82 10*3/uL Normal <0.87 [facility] Comment on above: Order Comment: Speci men Type: BLOOD SPECIMENOrdering Facility: [facility] Address: [address] [place] [address] Performed By: #### 5 7021-8 ####[facility] HOSPITALITALOA [id number] [place] [address] [place] Monocytes/100 WBC (Bld) 9.9 % Normal [facility] Comment on above: Order Comment: Speci men Type: BLOOD SPECIMENOrdering Facility: [facility] Address: [address] [place] [address] Performed By: #### 5 7021-8 ####[facility] [id number] [place] [address] [place] Neutrophils (Bld) [#/Vol] 5.69 10*3/uL Normal 1.45-7.50 [facility] Comment on above: Order Comment: Speci men Type: BLOOD SPECIMENOrdering Facility: [facility] Address: [address] [place] [address] Performed By: #### 5 7021-8 ####[facility] [id number] [place] [address] [place] Neutrophils/100 WBC (Bld) 68.7 % Normal [facility] Comment on above: Order Comment: Speci men Type: BLOOD SPECIMENOrdering Facility: [facility] Address: [address] [place] [address] Performed By: #### 5 7021-8 ####[facility]ITAL[facility]CL[facility] [id number] [place] [address] [place] Nucleated RBC (Bld) [#/Vol] 10*3/uL Normal <0.01 [facility] Comment on above: Order Comment: Speci men Type: BLOOD SPECIMENOrdering Facility: [facility] Address: [address] [place] [address] Performed By: #### 5 7021-8 ####[facility] [id number] [place] [address] [place] Nucleated RBC/100 WBC (Bld) [Ratio] 0.0 /100 WBC Normal [facility] Comment on above: Order Comment: Speci men Type: BLOOD SPECIMENOrdering Facility: [facility] Address: [address] [place] [address] Performed By: #### 5 7021-8 ####[facility] [id number] [place] [address] [place] Platelet mean volume (Bld) [Entitic vol] 8.6 fL Low 9.0-12.7 [facility] Comment on above: Order Comment: Speci men Type: BLOOD SPECIMENOrdering Facility: [facility] Address: [address] [place] [address] Performed By: #### 5 7021-8 ####[facility] [id number] [place] [address] [place] Platelets (Bld) [#/Vol] 255 10*3/uL Normal 150-400 [facility] Comment on above: Order Comment: Speci men Type: BLOOD SPECIMENOrdering Facility: [facility] Address: [address] [place] [address] Performed By: #### 5 7021-8 ####[facility] [id number] [place] [address] [place] RBC (Bld) [#/Vol] 3.87 10*6/uL Low 4.20-6.00 [facility] Comment on above: Order Comment: Speci men Type: BLOOD SPECIMENOrdering Facility: [facility] Address: [address] [place] [address] Performed By: #### 5 7021-8 ####[facility] [id number] [place] [address] [place] WBC (Bld) [#/Vol] 8.29 10*3/uL Normal 3.70-11.00 [facility] Comment on above: Order Comment: Speci men Type: BLOOD SPECIMENOrdering Facility: [facility] Address: [address] [place] [address] Performed By: #### 5 7021-8 ####[facility] [id number] [place] [address] [place] CNOVSPon 09-08-2023 CNOVSP Normal [facility] Cancer Ag19-9 SerPl-aCncon 0 09-08-2023 Cancer Ag 19-9 Qn 127.0 [arb'U]/mL High <36.0 [facility] Comment on above: Order Comment: Speci men Type: BLOOD SPECIMENOrdering Facility: [facility] Address: [address] [place] [address] Result Comment: Rust er antigen 19-9 test is used as an aid in monitoring response to treatment or recurrence in patients with established pancreatic, hepatobiliary, or gastrointestinal malignancies. Clinical correlation is required.The CA 19-9 Antigen test was performed using the Álvaro Clovis Unicel DXI paramagnetic particle chemiluminescent immunoassay method. Results obtained with different assay methods or kits cannot be used interchangeably. Performed By: #### 2 4108-3 ####[facility] LABCLIA [id number] [place] [address] [place] Comprehensive metabolic 2000 panelon 04-01-2024 Albumin [Mass/Vol] 3.9 g/dL 3.9 - 4.9 g/dL [facility] ALP [Catalytic activity/Vol] 94 U/L 38 - 113 U/L [facility] ALT [Catalytic activity/Vol] 19 U/L 10 - 54 U/L [facility] Anion gap [Moles/Vol] 11 mmol/L 9 - 18 mmol/L [facility] AST [Catalytic activity/Vol] 20 U/L 14 - 40 U/L [facility] Bilirubin [Mass/Vol] 1.0 mg/dL 0.2 - 1.3 mg/dL [facility] Calcium [Mass/Vol] 9.5 mg/dL 8.5 - 10. 2 mg/dL [facility] Chloride [Moles/Vol] 102 mmol/L 97 - 105 mmol/L [facility] CO2 [Moles/Vol] 24 mmol/L 22 - 30 mmol/L [facility] Creatinine [Mass/Vol] 1.07 mg/dL 0.73 - 1.22 mg/dL [facility] Estimated Glomerular Filtration Rate 74 mL/min/1.73m >=60 mL/min/1.7 3m [facility] Glucose [Mass/Vol] 134 mg/dL High 74 - 99 mg/dL [facility] Potassium [Moles/Vol] 3.0 mmol/L Low 3.7 - 5.1 mmol/L [facility] Protein [Mass/Vol] 6.7 g/dL 6.3 - 8.0 g/dL [facility] Sodium [Moles/Vol] 137 mmol/L 136 - 144 mmol/L [facility] Urea nitrogen [Mass/Vol] 25 mg/dL High 9 - 24 mg/dL [facility] Albumin [Mass/Vol] 3.9 g/dL Normal 3.9-4.9 [facility] Comment on above: Order Comment: Speci men Type: BLOOD SPECIMENOrdering Facility: [facility] Address: [address] [place], [place] [address] Performed By: #### 2 4323-8, 81698-3 ####[facility] CATHYVERMONT STATE HOSPITALТАТЬЯНА [id number] [place] [address] [place] ALP [Catalytic activity/Vol] 94 U/L Normal 38-113 [facility] Comment on above: Order Comment: Speci men Type: BLOOD SPECIMENOrdering Facility: [facility] Address: [address] [place] [address] Performed By: #### 2 4323-8, ####[facility] CATHY MARYNCLIA [id number] [place] [address] [place] ALT [Catalytic activity/Vol] 19 U/L Normal 10-54 [facility] Comment on above: Order Comment: Speci men Type: BLOOD SPECIMENOrdering Facility: [facility] Address: [address] [place] [address] Performed By: #### 2 4323-8, ####[facility] VARAULWNCLIA [id number] [place] [address] [place] Anion gap [Moles/Vol] 11 mmol/L Normal 9-18 [facility] Comment on above: Order Comment: Speci men Type: BLOOD SPECIMENOrdering Facility: [facility] Address: [address] [place] [address] Performed By: #### 2 4323-8, ####[facility] CATHY VANICKYNCROBERTA [id number] [place] [address] [place] AST [Catalytic activity/Vol] 20 U/L Normal 14-40 [facility] Comment on above: Order Comment: Speci men Type: BLOOD SPECIMENOrdering Facility: [facility] Address: [address] [place] [address] Performed By: #### 2 4323-8, ####[facility] HOSPITALNCLIA [id number] [place] [address] [place] Bilirubin [Mass/Vol] 1.0 mg/dL Normal 0.2-1.3 [facility] Comment on above: Order Comment: Speci men Type: BLOOD SPECIMENOrdering Facility: [facility] Address: [address] [place] [address] Performed By: #### 2 4323-8, ####[facility] CATHY MILLTOWNCLIA [id number] [place] [address] [place] Calcium [Mass/Vol] 9.5 mg/dL Normal 8.5-10.2 [facility] Comment on above: Order Comment: Speci men Type: BLOOD SPECIMENOrdering Facility: [facility] Address: [address] [place] [address] Performed By: #### 2 432-8, ####[facility] MILLTOWNCLIA [id number] [place] [address] [place] Chloride [Moles/Vol] 102 mmol/L Normal 97-105 [facility] Comment on above: Order Comment: Speci men Type: BLOOD SPECIMENOrdering Facility: [facility] Address: [address] [place] [address] Performed By: #### 2 4328, ####[facility] MILLTOWNCLIA [id number] [place] [address] [place] CO2 [Moles/Vol] 24 mmol/L Normal 22-30 [facility] Comment on above: Order Comment: Speci men Type: BLOOD SPECIMENOrdering Facility: [facility] Address: [address] [place] [address] Performed By: #### 2 4328, ####[facility] MILLTOWNCLIA [id number] [place] [address] [place] Creatinine [Mass/Vol] 1.07 mg/dL Normal 0.73-1.22 [facility] Comment on above: Order Comment: Speci men Type: BLOOD SPECIMENOrdering Facility: [facility] Address: [address] [place] [address] Performed By: #### 2 4328, ####[facility] [id number] [place] [address] [place] Creatinine and Glomerular filtration rate.predicted panel (S/P/Bld) 74 mL/min/1.73m??? Normal >=60 [facility] Comment on above: Order Comment: Lay barkley Type: BLOOD SPECIMENOrdering Facility: [facility] Address: [address] [place] [address] Result Comment: Emely mated Glomerular Filtration Rate (eGFR) is calculated using the 2020 CKD-EPI creatinine equation. This equation utilizes serum creatinine, sex, and age as parameters. The creatinine assay has traceable calibration to isotope dilution-mass spectrometry. Refer to KDIGO guidelines for clinical interpretation. In patients with unstable renal function, e.g. those with acute kidney injury, the eGFR may not accurately reflect actual GFR. Performed By: #### 2 4323-8, 61970-8 ####[facility] [id number] [place] [address] [place] Glucose [Mass/Vol] 134 mg/dL High 74-99 [facility] Comment on above: Order Comment: Lay barkley Type: BLOOD SPECIMENOrdering Facility: [facility] Address: [address] [place] [address] Result Comment: The [place] Diabetes Association (ADA) provides guidance for cutoff values for fasting glucose and random glucose. The ADA defines fasting as no caloric intake for at least 8 hours. Fasting plasma glucose results between 100 to 125 mg/dL indicate increased risk for diabetes (prediabetes).Fasting plasma glucose results greater than or equal to 126 mg/dL meet the criteria for diagnosis of diabetes. In the absence of unequivocal hyperglycemia, results should be confirmed by repeat testing. In a patient with classic symptoms of hyperglycemia or hyperglycemic crisis, random plasma glucose results greater than or equal to 200 mg/dL meet the criteria for diagnosis of diabetes.Reference: Standards of Medical Care in Diabetes 2016, [place] [employer]. Diabetes Care. 2016.39(Suppl 1). Performed By: #### 2 4323-8, 86544-5 ####[facility] [id number] [place] [address] [place] Potassium [Moles/Vol] 3.0 mmol/L Low 3.7-5.1 [facility] Comment on above: Order Comment: Speci men Type: BLOOD SPECIMENOrdering Facility: [facility] Address: [address] [place] [address] Performed By: #### 2 4323-8, 07646-5 ####[facility] MILLVIRAJ [id number] [place] [address] [place] Protein [Mass/Vol] 6.7 g/dL Normal 6.3-8.0 [facility] Comment on above: Order Comment: Speci men Type: BLOOD SPECIMENOrdering Facility: [facility] Address: [address] [place] [address] Performed By: #### 2 4323-8, ####[facility] HOSPITALVIRAJ [id number] [place] [address] [place] Sodium [Moles/Vol] 137 mmol/L Normal 136-144 [facility] Comment on above: Order Comment: Speci men Type: BLOOD SPECIMENOrdering Facility: [facility] Address: [address] [place] [address] Performed By: #### 2 4323-8, ####[facility] TYLER [id number] [place] [address] [place] Urea nitrogen [Mass/Vol] 25 mg/dL High 9-24 [facility] Comment on above: Order Comment: Speci men Type: BLOOD SPECIMENOrdering Facility: [facility] Address: [address] [place] [address] Performed By: #### 2 4323-8, 94878-0 ####[facility] HOSPITALNICKYNCLIA [id number] [place] [address] [place] MAGNESIUM BLDon 09-08-2023 Magnesium [Mass/Vol] 1.9 mg/dL 1.7 - 2.3 mg/dL [facility] Magnesium SerPl-mCncon 09-07 Magnesium [Mass/Vol] 1.9 mg/dL Normal 1.7-2.3 [facility] Comment on above: Order Comment: Speci men Type: BLOOD SPECIMENOrdering Facility: [facility] Address: [address] [place] [address] Performed By: #### 2 4323-8, 81824-4 ####[facility] CATHY MILLCOMMUNITY MENTAL HEALTH CENTERLIA [id number] [place] [address] [place] CNPNon 08-28-2023 CNPN Normal [facility] CNPNon 08-27-2023 CNPN Normal [facility] CNCNPATEDon 08-26-2023 CNCNPATED Normal [facility] CNPNon 08-26-2023 CNPN Normal [facility] CBC W Auto Differential pane l (Bld)on 08-25-2023 Basophils (Bld) [#/Vol] 0.11 10*3/uL High <0.11 k/uL [facility] Basophils/100 WBC (Bld) 1.3 % [facility] Differential cell count method Nom (Bld) Auto [facility] Eosinophils (Bld) [#/Vol] 0.15 10*3/uL <0.46 k/uL [facility] Eosinophils/100 WBC (Bld) 1.7 % [facility] Erythrocyte distribution width (RBC) [Ratio] 15.4 % High 11.5 - 15.0 % [facility] Hematocrit (Bld) [Volume fraction] 33.4 % Low 39.0 - 51.0 % [facility] Hemoglobin (Bld) [Mass/Vol] 11.3 g/dL Low 13.0 - 17.0 g/dL [facility] Immature granulocytes (Bld) [#/Vol] 0.04 10*3/uL <0.10 k/uL [facility] Immature granulocytes/100 WBC (Bld) 0.5 % [facility] Lymphocytes (Bld) [#/Vol] 1.72 10*3/uL 1.00 - 4.00 k/uL [facility] Lymphocytes/100 WBC (Bld) 19.9 % [facility] MCH (RBC) [Entitic mass] 29.8 pg 26.0 - 34.0 pg [facility] MCHC (RBC) [Mass/Vol] 33.8 g/dL 30.5 - 36.0 g/dL [facility] MCV (RBC) [Entitic vol] 88.1 fL 80.0 - 100.0 fL [facility] Monocytes (Bld) [#/Vol] 0.70 10*3/uL <0.87 k/uL [facility] Monocytes/100 WBC (Bld) 8.1 % [facility] Neutrophils (Bld) [#/Vol] 5.94 10*3/uL 1.45 - 7.50 k/uL [facility] Neutrophils/100 WBC (Bld) 68.5 % [facility] Nucleated RBC (Bld) [#/Vol] <0.01 k/uL [facility] Nucleated RBC/100 WBC (Bld) [Ratio] 0.0 /100 WBC [facility] Platelet mean volume (Bld) [Entitic vol] 10.3 fL 9.0 - 12.7 fL [facility] Platelets (Bld) [#/Vol] 345 10*3/uL 150 - 400 k/uL [facility] RBC (Bld) [#/Vol] 3.79 10*6/uL Low 4.20 - 6.00 m/uL [facility] WBC (Bld) [#/Vol] 8.66 10*3/uL 3.70 - 11.00 k/uL [facility] Basophils (Bld) [#/Vol] 0.11 10*3/uL High <0.11 [facility] Comment on above: Order Comment: Speci men Type: BLOOD SPECIMENOrdering Facility: [facility] Address: [address] [place] [address] Performed By: #### 5 7021-8 ####[facility] CATHYWAYNE HOSPITALNorma [id number] [place] [address] [place] Basophils/100 WBC (Bld) 1.3 % Normal [facility] Comment on above: Order Comment: Speci men Type: BLOOD SPECIMENOrdering Facility: [facility] Address: [address] [place] [address] Performed By: #### 5 7021-8 ####[facility] VAAuraCRISTOFERLIA [id number] [place] [address] [place] Differential cell count method Nom (Bld) Auto Normal [facility] Comment on above: Order Comment: Speci men Type: BLOOD SPECIMENOrdering Facility: [facility] Address: [address] [place] [address] Performed By: #### 5 7021-8 ####[facility] HOSPITALCRISTOFERLIA [id number] [place] [address] [place] Eosinophils (Bld) [#/Vol] 0.15 10*3/uL Normal <0.46 [facility] Comment on above: Order Comment: Speci men Type: BLOOD SPECIMENOrdering Facility: [facility] Address: [address] [place] [address] Performed By: #### 5 7021-8 ####[facility] HOSPITALITALOA [id number] [place] [address] [place] Eosinophils/100 WBC (Bld) 1.7 % Normal [facility] Comment on above: Order Comment: Speci men Type: BLOOD SPECIMENOrdering Facility: [facility] Address: [address] [place] [address] Performed By: #### 5 7021-8 ####[facility] HOSPITALCRISTOFERLIA [id number] [place] [address] [place] Erythrocyte distribution width (RBC) [Ratio] 15.4 % High 11.5-15.0 [facility] Comment on above: Order Comment: Speci men Type: BLOOD SPECIMENOrdering Facility: [facility] Address: [address] [place] [address] Performed By: #### 5 7021-8 ####[facility] HOSPITALNCLIA [id number] [place] [address] [place] Hematocrit (Bld) [Volume fraction] 33.4 % Low 39.0-51.0 [facility] Comment on above: Order Comment: Speci men Type: BLOOD SPECIMENOrdering Facility: [facility] Address: [address] [place] [address] Performed By: #### 5 7021-8 ####[facility] HOSPITALNCROBERT [id number] [place] [address] [place] Hemoglobin (Bld) [Mass/Vol] 11.3 g/dL Low 13.0-17.0 [facility] Comment on above: Order Comment: Speci men Type: BLOOD SPECIMENOrdering Facility: [facility] Address: [address] [place] [address] Performed By: #### 5 7021-8 ####[facility] CL[facility] HOSPITALNCLI [id number] [place] [address] [place] Immature granulocytes (Bld) [#/Vol] 0.04 10*3/uL Normal <0.10 [facility] Comment on above: Order Comment: Speci men Type: BLOOD SPECIMENOrdering Facility: [facility] Address: [address] [place] [address] Performed By: #### 5 7021-8 ####[facility] HOSPITALNCLIA [id number] [place] [address] [place] Immature granulocytes/100 WBC (Bld) 0.5 % Normal [facility] Comment on above: Order Comment: Speci men Type: BLOOD SPECIMENOrdering Facility: [facility] Address: [address] [place] [address] Performed By: #### 5 7021-8 ####[facility] HOSPITALNCLIA [id number] [place] [address] [place] Lymphocytes (Bld) [#/Vol] 1.72 10*3/uL Normal 1.00-4.00 [facility] Comment on above: Order Comment: Speci men Type: BLOOD SPECIMENOrdering Facility: [facility] Address: [address] [place] [address] Performed By: #### 5 7021-8 ####[facility] TYLER [id number] [place] [address] [place] Lymphocytes/100 WBC (Bld) 19.9 % Normal [facility] Comment on above: Order Comment: Speci men Type: BLOOD SPECIMENOrdering Facility: [facility] Address: [address] [place] [address] Performed By: #### 5 7021-8 ####[facility] HOSPITALNCCAMILLE [id number] [place] [address] [place] MCH (RBC) [Entitic mass] 29.8 pg Normal 26.0-34.0 [facility] Comment on above: Order Comment: Speci men Type: BLOOD SPECIMENOrdering Facility: [facility] Address: [address] [place] [address] Performed By: #### 5 7021-8 ####[facility] CL[facility] HOSPITALNCCAMILLE [id number] [place] [address] [place] MCHC (RBC) [Mass/Vol] 33.8 g/dL Normal 30.5-36.0 [facility] Comment on above: Order Comment: Speci men Type: BLOOD SPECIMENOrdering Facility: [facility] Address: [address] [place] [address] Performed By: #### 5 7021-8 ####[facility] HOSPITALNCLIA [id number] [place] [address] [place] MCV (RBC) [Entitic vol] 88.1 fL Normal 80.0-100.0 [facility] Comment on above: Order Comment: Speci men Type: BLOOD SPECIMENOrdering Facility: [facility] Address: [address] [place] [address] Performed By: #### 5 7021-8 ####[facility] MILLTOWNCLIA [id number] [place] [address] [place] Monocytes (Bld) [#/Vol] 0.70 10*3/uL Normal <0.87 [facility] Comment on above: Order Comment: Speci men Type: BLOOD SPECIMENOrdering Facility: [facility] Address: [address] [place] [address] Performed By: #### 5 7021-8 ####[facility] MEDICAL CENTERLIA [id number] [place] [address] [place] Monocytes/100 WBC (Bld) 8.1 % Normal [facility] Comment on above: Order Comment: Speci men Type: BLOOD SPECIMENOrdering Facility: [facility] Address: [address] [place] [address] Performed By: #### 5 7021-8 ####[facility] MEDICAL CENTERLIA [id number] [place] [address] [place] Neutrophils (Bld) [#/Vol] 5.94 10*3/uL Normal 1.45-7.50 [facility] Comment on above: Order Comment: Speci men Type: BLOOD SPECIMENOrdering Facility: [facility] Address: [address] [place] [address] Performed By: #### 5 7021-8 ####[facility] HOSPITALWNCLIA [id number] [place] [address] [place] Neutrophils/100 WBC (Bld) 68.5 % Normal [facility] Comment on above: Order Comment: Speci men Type: BLOOD SPECIMENOrdering Facility: [facility] Address: [address] [place] [address] Performed By: #### 5 7021-8 ####[facility] HOSPITALNCLIA [id number] [place] [address] [place] Nucleated RBC (Bld) [#/Vol] 10*3/uL Normal <0.01 [facility] Comment on above: Order Comment: Speci men Type: BLOOD SPECIMENOrdering Facility: [facility] Address: [address] [place] [address] Performed By: #### 5 7021-8 ####[facility] [id number] [place] [address] [place] Nucleated RBC/100 WBC (Bld) [Ratio] 0.0 /100 WBC Normal [facility] Comment on above: Order Comment: Speci men Type: BLOOD SPECIMENOrdering Facility: [facility] Address: [address] [place] [address] Performed By: #### 5 7021-8 ####[facility] HOSPITALNCMOAB [facility] [id number] [place] [address] [place] Platelet mean volume (Bld) [Entitic vol] 10.3 fL Normal 9.0-12.7 [facility] Comment on above: Order Comment: Speci men Type: BLOOD SPECIMENOrdering Facility: [facility] Address: [address] [place] [address] Performed By: #### 5 7021-8 ####[facility] MEDICAL CENTERLIA [id number] [place] [address] [place] Platelets (Bld) [#/Vol] 345 10*3/uL Normal 150-400 [facility] Comment on above: Order Comment: Speci men Type: BLOOD SPECIMENOrdering Facility: [facility] Address: [address] [place] [address] Performed By: #### 5 7021-8 ####[facility] HOSPITALNCMOAB [facility]AL [facility] [id number] [place] [address] [place] RBC (Bld) [#/Vol] 3.79 10*6/uL Low 4.20-6.00 [facility] Comment on above: Order Comment: Speci men Type: BLOOD SPECIMENOrdering Facility: [facility] Address: [address] [place] [address] Performed By: #### 5 7021-8 ####[facility] HOSPITALNCLIA [id number] [place] [address] [place] WBC (Bld) [#/Vol] 8.66 10*3/uL Normal 3.70-11.00 [facility] Comment on above: Order Comment: Speci men Type: BLOOD SPECIMENOrdering Facility: [facility] Address: [address] [place] [address] Performed By: #### 5 7021-8 ####[facility] HOSPITALNCLIA [id number] [place] [address] [place] CNPNon 08-25-2023 CNPN Normal [facility] Cancer Ag19-9 SerPl-aCncon 0 08-25-2023 Cancer Ag 19-9 Qn 119.0 [arb'U]/mL High <36.0 [facility] Comment on above: Order Comment: Speci men Type: BLOOD SPECIMENOrdering Facility: [facility] Address: [address] [place] [address] Result Comment: Rust er antigen 19-9 test is used as an aid in monitoring response to treatment or recurrence in patients with established pancreatic, hepatobiliary, or gastrointestinal malignancies. Clinical correlation is required.The CA 19-9 Antigen test was performed using the [employer] DXI paramagnetic particle chemiluminescent immunoassay method. Results obtained with different assay methods or kits cannot be used interchangeably. Performed By: #### 2 4108-3 ####[facility] LABCLIA [id number] [place] [address] [place] Comprehensive metabolic 2000 panelon 08-25-2023 Albumin [Mass/Vol] 4.0 g/dL 3.9 - 4.9 g/dL [facility] ALP [Catalytic activity/Vol] 130 U/L High 38 - 113 U/L [facility] ALT [Catalytic activity/Vol] 22 U/L 10 - 54 U/L [facility] Anion gap [Moles/Vol] 9 mmol/L 9 - 18 mmol/L [facility] AST [Catalytic activity/Vol] 23 U/L 14 - 40 U/L [facility] Bilirubin [Mass/Vol] 2.1 mg/dL High 0.2 - 1.3 mg/dL [facility] Calcium [Mass/Vol] 9.2 mg/dL 8.5 - 10. 2 mg/dL [facility] Chloride [Moles/Vol] 105 mmol/L 97 - 105 mmol/L [facility] CO2 [Moles/Vol] 24 mmol/L 22 - 30 mmol/L [facility] Creatinine [Mass/Vol] 0.99 mg/dL 0.73 - 1.22 mg/dL [facility] Estimated Glomerular Filtration Rate 81 mL/min/1.73m >=60 mL/min/1.7 3m [facility] Glucose [Mass/Vol] 117 mg/dL High 74 - 99 mg/dL [facility] Potassium [Moles/Vol] 3.6 mmol/L Low 3.7 - 5.1 mmol/L [facility] Protein [Mass/Vol] 6.7 g/dL 6.3 - 8.0 g/dL [facility] Sodium [Moles/Vol] 138 mmol/L 136 - 144 mmol/L [facility] Urea nitrogen [Mass/Vol] 26 mg/dL High 9 - 24 mg/dL [facility] Albumin [Mass/Vol] 4.0 g/dL Normal 3.9-4.9 [facility] Comment on above: Order Comment: Speci men Type: BLOOD SPECIMENOrdering Facility: [facility] Address: [address] [place] [address] Performed By: #### 2 4323-8, 91760-1 ####[facility] [id number] [address] [place] ALP [Catalytic activity/Vol] 130 U/L High 38-113 [facility] Comment on above: Order Comment: Speci men Type: BLOOD SPECIMENOrdering Facility: [facility] Address: [address] [place] [address] Performed By: #### 2 4323-8, ####[facility] CATHY MILLTOWNCLIA [id number] [place] [address] [place] ALT [Catalytic activity/Vol] 22 U/L Normal 10-54 [facility] Comment on above: Order Comment: Speci men Type: BLOOD SPECIMENOrdering Facility: [facility] Address: [address] [place] [address] Performed By: #### 2 432-8, ####[facility] MILLTOWNCLIA [id number] [place] [address] [place] Anion gap [Moles/Vol] 9 mmol/L Normal 9-18 [facility] Comment on above: Order Comment: Speci men Type: BLOOD SPECIMENOrdering Facility: [facility] Address: [address] [place] [address] Performed By: #### 2 432-8, ####[facility]ITALWNCLIA [id number] [place] [address] [place] AST [Catalytic activity/Vol] 23 U/L Normal 14-40 [facility] Comment on above: Order Comment: Speci men Type: BLOOD SPECIMENOrdering Facility: [facility] Address: [address] [place] [address] Performed By: #### 2 432-8, ####[facility] MILLTOWNCLIA [id number] [place] [address] [place] Bilirubin [Mass/Vol] 2.1 mg/dL High 0.2-1.3 [facility] Comment on above: Order Comment: Speci men Type: BLOOD SPECIMENOrdering Facility: [facility] Address: [address] [place] [address] Performed By: #### 2 4323-8, ####[facility] MILLTOWNCLIA [id number] [place] [address] [place] Calcium [Mass/Vol] 9.2 mg/dL Normal 8.5-10.2 [facility] Comment on above: Order Comment: Speci men Type: BLOOD SPECIMENOrdering Facility: [facility] Address: [address] [place] [address] Performed By: #### 2 4323-8, 11206-6 ####[facility] MILLWITALOA [id number] [place] [address] [place] Chloride [Moles/Vol] 105 mmol/L Normal 97-105 [facility] Comment on above: Order Comment: Speci men Type: BLOOD SPECIMENOrdering Facility: [facility] Address: [address] [place] [address] Performed By: #### 2 4323-8, ####[facility]PITALNCCAMIL[facility] [id number] [place] [address] [place] CO2 [Moles/Vol] 24 mmol/L Normal 22-30 [facility] Comment on above: Order Comment: Speci men Type: BLOOD SPECIMENOrdering Facility: [facility] Address: [address] [place] [address] Performed By: #### 2 4323-8, ####[facility] HOSPITALITALOA [id number] [place] [address] [place] Creatinine [Mass/Vol] 0.99 mg/dL Normal 0.73-1.22 [facility] Comment on above: Order Comment: Speci men Type: BLOOD SPECIMENOrdering Facility: [facility] Address: [address] [place] [address] Performed By: #### 2 4323-8, ####[facility] H[facility]ITALNCLIA [id number] [place] [address] [place] Creatinine and Glomerular filtration rate.predicted panel (S/P/Bld) 81 mL/min/1.73m??? Normal >=60 [facility] Comment on above: Order Comment: Lay barkley Type: BLOOD SPECIMENOrdering Facility: [facility] Address: [address] [place] [address] Result Comment: Emely mated Glomerular Filtration Rate (eGFR) is calculated using the 2020 CKD-EPI creatinine equation. This equation utilizes serum creatinine, sex, and age as parameters. The creatinine assay has traceable calibration to isotope dilution-mass spectrometry. Refer to KDIGO guidelines for clinical interpretation. In patients with unstable renal function, e.g. those with acute kidney injury, the eGFR may not accurately reflect actual GFR. Performed By: #### 2 4323-8, 93047-2 ####[facility] [id number] [place] [address] [place] Glucose [Mass/Vol] 117 mg/dL High 74-99 [facility] Comment on above: Order Comment: Lay barkley Type: BLOOD SPECIMENOrdering Facility: [facility] Address: [address] [place] [address] Result Comment: The [place] Diabetes Association (ADA) provides guidance for cutoff values for fasting glucose and random glucose. The ADA defines fasting as no caloric intake for at least 8 hours. Fasting plasma glucose results between 100 to 125 mg/dL indicate increased risk for diabetes (prediabetes).Fasting plasma glucose results greater than or equal to 126 mg/dL meet the criteria for diagnosis of diabetes. In the absence of unequivocal hyperglycemia, results should be confirmed by repeat testing. In a patient with classic symptoms of hyperglycemia or hyperglycemic crisis, random plasma glucose results greater than or equal to 200 mg/dL meet the criteria for diagnosis of diabetes.Reference: Standards of Medical Care in Diabetes 2016, [place] [employer]. Diabetes Care. 2016.39(Suppl 1). Performed By: #### 2 4323-8, 06223-2 ####[facility] H[facility]PITALNCLIA [id number] [place] [address] [place] Potassium [Moles/Vol] 3.6 mmol/L Low 3.7-5.1 [facility] Comment on above: Order Comment: Speci men Type: BLOOD SPECIMENOrdering Facility: [facility] Address: [address] [place] [address] Performed By: #### 2 4323-8, ####[facility] CATHY VARAULAuraТАТЬЯНА [id number] [place] [address] [place] Protein [Mass/Vol] 6.7 g/dL Normal 6.3-8.0 [facility] Comment on above: Order Comment: Speci men Type: BLOOD SPECIMENOrdering Facility: [facility] Address: [address] [place], [place] [address] Performed By: #### 2 4323-8, ####[facility] CATHY VAVIRAJ [id number] [place] [address] [place] Sodium [Moles/Vol] 138 mmol/L Normal 136-144 [facility] Comment on above: Order Comment: Speci men Type: BLOOD SPECIMENOrdering Facility: [facility] Address: [address] [place] [address] Performed By: #### 2 4323-8, ####[facility] CATHY CONNORSA [id number] [place] [address] [place] Urea nitrogen [Mass/Vol] 26 mg/dL High 9-24 [facility] Comment on above: Order Comment: Speci men Type: BLOOD SPECIMENOrdering Facility: [facility] Address: [address] [place], [place] [address] Performed By: #### 2 4323-8, ####[facility] HOSPITALRAULITALOA [id number] [place] [address] [place] MAGNESIUM BLDon 08-25-2023 Magnesium [Mass/Vol] 1.9 mg/dL 1.7 - 2.3 mg/dL [facility] SEND OUT TST 1on 2023 REFERRAL LAB 1 [facility] Normal [facility] Comment on above: Order Comment: Speci men Type: BLOOD SPECIMENOrdering Facility: [facility] Address: [address] [place] [address] Performed By: #### M ISC1 ####NON-INTERFACED REF LABSCLIA SEE SCANNED RESULTS TEST 1 Multi Cancer Panel Normal [facility] Comment on above: Order Comment: Speci men Type: BLOOD SPECIMENOrdering Facility: [facility] Address: [address] [place] [address] Performed By: #### M ISC1 ####NON-INTERFACED REF LABSCLIA SEE SCANNED RESULTS TEST RESULTS 1 View results in Scan nell Documents link when available. Normal [facility] Comment on above: Order Comment: Speci men Type: BLOOD SPECIMENOrdering Facility: [facility] Address: [address] [place] [address] Performed By: #### M ISC1 ####NON-INTERFACED REF LABSCLIA SEE SCANNED RESULTS [facility]esium [facility] Magnesium [Mass/Vol] 1.9 mg/dL Normal 1.7-2.3 [facility] Comment on above: Order Comment: Speci men Type: BLOOD SPECIMENOrdering Facility: [facility] Address: [address] [place] [address] Performed By: #### 2 4323-8, 63228-4 ####[facility] [id number] [place] [address] [place] ANES POSTPROC EVALon 024 ANES POSTPROC EVAL HNO ID: [id number] Author: OREN ALEJANDRA APRN.CRNA Service: Anesthesiology Author Type: Nurse Head Pumper Type: Anesthesia Postprocedure Evaluation Filed: 08/21/2023 09:25 Note Text: POST ANESTHESIA EVALUATION NOTE : 1950 Procedure Summary Date: 08/21/23 Room / Location: OR OR Anesthesia Start: 807 Anesthesia Stop: 923 Procedure: INSERTION CATHETER PORT-A-CATH WITH C-ARM (Right: Chest) Diagnosis: 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 Post Anesthesia Patient Status Patient Evaluation: PACU. Anticipated Disposition: phase 2 then home. Neurological Status: sleepy but arousable. Pulmonary Status: breathing comfortably on supplemental oxygen Airway Control: returned to baseline unsupported. Cardiovascular Status: stable. Pain Management: clinically adequate Postoperative Hydration: acceptable. Intraoperative Events: no significant anesthesia events Post Operative Nausea/Vomiting Status: no significant post operative nausea or vomiting Recommendation: continue current plan of care. Anesthesia Observations No Documentation SIGNATURE: Oren Alejandra APRN.SUPERVISOR CLAIMS PATIENT NAME: Kristin Lara DATE: August 21, 2023 TIME: 9:24 AM CSN: [id number] [facility] ANES PRE-OPon 08-21-2023 ANES PRE-OP HNO ID: [id number] Author: OREN ALEJANDRA APRN.CRNA Service: Anesthesiology Author Type: Nurse Head Pumper Type: Anesthesia Preprocedure Evaluation Filed: 08/21/2023 07:49 Note Text: ANESTHESIOLOGY DAY OF SURGERY NOTE : 1950 Procedure Information Date/Time: 08/21/23 08 Procedure: INSERTION CATHETER PORT-A-CATH WITH C-ARM (Pending) Location: LD OR OR Surgeons: Cecile Garcia MD Estimated body mass index is 28.65 kg/m? as calculated from the following: Height as of this encounter: 175.3 cm (5' 9 ). Weight as of this encounter: 88 kg (194 lb). Most recent hematocrit and potassium results: Hematocrit 34.8 08/12/2023 Potassium 3.7 08/12/2023 Relevant Problems CARDIO (+) Essential hypertension I - PHYSICAL EVALUATION AIRWAY Patient intubated: No. Tracheostomy tube not present Mallampati: II. TM distance: >3 FB. Neck ROM: full ROM without neurological symptoms. Mouth opening: adequate. Short neck: no. Thick neck: no Schultz present: no Lip Bite Test: II Microretrognathia/Micronagthia/ Recessed Chin: No Additional exam findings: no II - ANESTHESIA PLAN ASA Score: 3 Anesthetic Plan: MAC The patient is not a current smoker. NPO Status: adequate Beta Abraham Administration of chronic beta abraham medication not planned. Monitoring Plan Monitoring plan: standard ASA. Post Procedure Analgesic Plan Postoperative analgesic plan: per surgical service. Informed Consent Anesthetic risks, benefits, alternatives, personnel and consent discussed: yes. Patient / Responsible Libertarian agrees to proceed: yes Patient / Surrogate agrees to blood products: blood products not planned DNR status reviewed with patient and/or family prior to surgery. patient elects to suspend DNR status in the perioperative setting (Full Code). Potential Anesthesia issues that may suggest increased risk of complications or contraindication to planned procedure: none. Discussed the possibility of lip / dental damage: yes Vitals Value Taken Time BP 150/92 08/21/23651 Pulse 76 08/21/23651 Resp 18 08/21/23651 Temp 36.7 ?C (98.1 ?F) 08/21/23651 SpO2 99 % 08/21/23651 Facility-Administered Medications as of 08/21/2023 Medication Dose Route Frequency - lidocaine (PF) 10 mg/mL (1 %) 1-2 mg injection (XYLOCAINE) 0.1-0.2 mL INTRADERMAL PRN - lactated ringers iv infusion 5-30 mL/hr INTRAVENOUS CONTINUOUS - NaCl 0.9% iv flush bag 20 mL INTRAVENOUS PRN - [COMPLETED] ceFAZolin 2 g in D5W 100 mL (ANCEF) 2 g INTRAVENOUS Pre-Op Once Outpatient Medications as of 08/21/2023 Medication Sig - losartan-hydroCHLOROthiazide (HYZAAR) 50-12.5 mg per tablet Take by mouth. - cholecalciferol, vitamin D3, (VITAMIN D3 ORAL) Take by mouth once daily. - saw/vit E/sod jerson/lyc/beta/pyg (PROSTATE HEALTH ORAL) Take by mouth once daily. I have interviewed and examined the patient. I have reviewed the medical record and/or the pre-anesthesia evaluation, pertinent labs, and test results. This contains updated information obtained within 48 hours of Surgery/Procedure. SIGNATURE: Oren Alejandra APRN.CRNA PATIENT NAME: Kristin Lara DATE: August 21, 2023 TIME: 7:46 AM CSN: [id number] [facility] BRIEF OP NOTon 08-21-2023 BRIEF OP NOT HNO ID: [id number] Author: CECILE GARCIA MD Service: General Surgery Author Type: Physician Type: Brief Op Note Filed: 08/21/2023 09:12 Note Text: BRIEF OPERATIVE NOTE SURGERY DATE: 08/21/2023 Incision/Procedure Start Time: 8:24 Incision Close/Procedure End Time: 9:02 Surgeon(s)/Proceduralist(s) and Bicycle Ii Assembler(s): jennifer Procedures: Placement of RIJ portacath Anesthesia: MAC Findings: normal RIJ anatomy to SVC Estimated Blood Loss: < 5 ml Specimens: None Complications: None IMPLANTS: Power Port Lot [id number], exp 2024-12-06 Closure Technique: Primary Preop Diagnosis: malignant tumor of pancreas, need for IV access for chemotherapy Postop Diagnosis: same SIGNATURE: Cecile Garcia MD PATIENT NAME: Kristin Lara DATE: August 21, 2023 TIME: 9:09 AM Acct: [id number] [facility] NURSING PROGon 08-21-2023 NURSING PROG HNO ID: [id number] Author: TINO FRIAS RN Service: ? Author Type: Registered Nurse Type: Nursing Progress Note Filed: 08/21/2023 10:28 Note Text: Patient alert and oriented. Tolerating food and fluids without difficulty. No complaints of nausea or pain. Gait is steady with no assist. Normal [facility] NURSING PROG HNO ID: [id number] Author: TINO FRIAS RN Service: ? Author Type: Registered Nurse Type: Nursing Progress Note Filed: 08/21/2023 09:34 Note Text: Patient arrived in post op area asleep but responds easily to verbal and tactile stimuli. Denies pain. Right upper chest guaze intact and right neck steri strip x1 intact and without drainage. Normal [facility] OPERATIVE NOon 08-21-2023 OPERATIVE NO HNO ID: [id number] Author: CECILE GARCIA MD Service: General Surgery Author Type: Physician Type: Operative Report Filed: 08/21/2023 17:49 Note Text: [facility] - Operative Report - KRISTIN Limon : 1950 AGE: 73. SEX: M PATIENT TYPE: A HOSP SVC: [facility] LOCATION: [facility] ATTENDING PHYSICIAN: Cecile Garcia MD CSN NUMBER: [id number] DATE OF SURGERY/PROCEDURE: 08/21/2023 INCISION/PROCEDURE START TIME: 823 INCISION CLOSE/PROCEDURE END TIME: 901 PREOPERATIVE DIAGNOSIS: Malignant tumor of pancreas and need for IV access for chemotherapy. POSTOPERATIVE DIAGNOSIS: Malignant tumor of pancreas and need for IV access for chemotherapy. SURGEON: Cecile Garcia MD FILLER SIFTER HELPER: No Additional Staff SURGERY/PROCEDURE: Placement of permanent tunneled indwelling catheter in the right internal jugular vein with subcutaneous port. ANESTHESIA: MAC local. LOCATION: [facility]. INDICATIONS: Kristin Lara is a 73-year-old white male, who presents with pancreatic cancer. He is going to require IV chemotherapy. He will require a Port- A-Cath for the IV chemotherapy. He has been counseled on the risks of procedure including, but not limited to infection, bleeding, injury to any blood vessels or nerves, thrombosis of the blood vessels, line sepsis, injury to the lungs such as pneumothorax and/or hemothorax, migration of the catheter, not having any access, mechanical malfunction of the port, infection of the port, scar tissue, wound infection, etc. The patient understands and agrees to proceed. DESCRIPTION OF PROCEDURE: After informed consent was given, the patient was brought to the operating room. Appropriate time-out protocol was followed. The patient was then placed in supine position. IV anesthesia was administered by the anesthesia provider. The patient's upper chest and neck areas were then prepped with sterile surgical skin preparation and appropriate sterile surgical drapes were placed. The skin and subcutaneous tissues of the right neck and right upper chest area were then infiltrated with local anesthetic. The ultrasound transducer was brought up into the operative field and it was placed in a sterile sheath. Ultrasound was performed on the patient's right neck. The right internal jugular vein was identified by the US transducer. A needle trocar was then inserted into the right internal jugular vein as directed by the ultrasound transducer and the needle was seen to be piercing through the skin and entering into the right internal jugular vein as identified by the ultrasound transducer. A wire was then threaded into the needle trocar and it was followed using fluoroscopy such that the wire was advanced toward the direction of the heart. Once this was done, the needle trocar was removed. A small skin rogerio was made at the wire entrance site with 11 blade scalpel. The dilator and sheath were then passed over the wire according to the Seldinger technique and under fluoroscopy, it was visualized entering into the patient's skin and then into the internal jugular vein and directed toward the heart. The dilator and wire were then removed. A catheter was then placed into the introducer sheath. It was then directed toward the heart from the right internal jugular vein into the SVC such that it was just within the cardiac silhouette. The introducer sheath was then removed. A subcutaneous pocket was then created for the Port-A-Cath excision for the subcutaneous port. A transverse skin incision was made in the patient's upper right chest area. Blunt dissection was then done to create a pocket. The subcutaneous port was then sutured to the pocket using Vicryl suture in interrupted simple fashion. A tunneling device was then inserted into catheter entrance site and directed this to the pocket. The catheter was then attached to the tunneling device according to border police's guidelines. The catheter was then tunneled from its entrance site in the patient's right neck to the subcutaneous pocket, which is just inferior to the right lateral right clavicle. The excess catheter was thentransected and the catheter was then connected to the subcutaneous port according to border police's guidelines. The port was then aspirated. There was good aspiration of blood. It was then flushed with heparinized saline. The subdermal tissues were then reapproximated using Vicryl suture in interrupted simple fashion. Skin incision was closed with 4-0 Monocryl in a running subcuticular fashion. Benzoin and Steri-Strips were used to reinforce clean closure. Proper sterile dressings were applied. The patient tolerated the procedure well. During the procedure, chest x-ray revealed no evidence of any pneumothorax or hemothorax and the tip of the catheter was in the superior vena cava. The patient tolerated the procedure well and was brought to recovery room in (more content not included)... Normal [facility] XR CHEST 1V FRONTALon 2023 XR CHEST 1V FRONTAL * * *Final Report* * * DATE OF EXAM: Aug 21 2023 9:25AM LDX 5290 - XR CHEST 1V FRONTAL / PROCEDURE REASON: Evaluate tube, line, or lead position * * * * Physician Interpretation * * * * EXAMINATION: CHEST RADIOGRAPH (PORTABLE SINGLE VIEW AP) Exam Date/Time: 08/21/2023 9:25 AM Clinical History: Evaluate tube, line, or lead position M: XCP_4 Comparison: 08/05/[address] RESULT: Lines, tubes, and devices: Right chest port catheter terminates at the mid SVC. Lungs and pleura: No focal lung consolidation, pleural effusion, or pneumothorax. Cardiomediastinal silhouette: Stable cardiomediastinal silhouette. Osseous structures: No acute osseous finding. IMPRESSION: No acute process. Right chest port catheter terminates at the mid SVC. Chemical Handler: KOLE Transcribe Date/Time: Aug 21 2023 9:28A Dictated by : RUI HERNANDEZ MD This examination was interpreted and the report reviewed and electronically signed by: RUI HERNANDEZ MD on Aug 21 2023 9:31AM EST [id number] Normal [facility] XR FLUOROGUIDE VEIN DEVICEon 08-21-2023 XR FLUOROGUIDE VEIN DEVICE * * *Final Report* * * DATE OF EXAM: Aug 21 2023 8:47AM LDX 5516 - XR FLUOROGUIDE VEIN DEVICE / PROCEDURE REASON: Malignant neoplasm head of pancreas * * * * Physician Interpretation * * * * XR FLUOROGUIDE VEIN DEVICE HISTORY: Malignant neoplasm head of pancreas TECHNIQUE: 2 fluoroscopic image(s) obtained for intraoperative fluoroscopic guidance. Please refer to the operative notes for details. Fluoroscopic Radiation Summary: Plane A, Air Kerma: 2.8 mGy Dose Area Product (DAP): 0.0 mGy*cm^2 Fluoro time: 0:20 min:sec IMPRESSION: Documentation of intraoperative fluoroscopic guidance as above. Chemical Handler: KOLE Transcribe Date/Time: Aug 21 2023 9:25A Dictated by : RUI HERNANDEZ MD This examination was interpreted and the report reviewed and electronically signed by: RUI HERNANDEZ MD on Aug 21 2023 9:25AM EST [id number] Normal [facility] HISTORY PHYSICALon HISTORY PHYSICAL HNO ID: [id number] Author: CECILE GARCIA MD Service: General Surgery Author Type: Physician Type: H&P Filed: 08/20/2023 15:28 Note Text: HISTORY AND PHYSICAL Kristin Lara 1950 REFERRING PHYSICIAN: No ref. provider found CHIEF COMPLAINT: Consult (Port placement, Dr Madai payne) HPI: The patient is a 73 year old male presents with pancreatic cancer. He will require IV chemotherapy and his oncologist has recommended placement of portacath. He denies previous central lines. He denies previous clavicular and/or rib fractures. He denies history of DVT/PE. He denies history of cardiac illness and /or respiratory disorders. He had presented with jaundice, he recently had ERCP with stent placement and his tbili is decreasing. It is 5.6 today. PAST MEDICAL HISTORY Diagnosis Date Acute gastritis without mention of hemorrhage Diverticulosis of colon (without mention of hemorrhage) Hernia of unspecified site of abdominal cavity without mention of obstruction or gangrene hiatal Iron deficiency anemia, unspecified 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) 08/12/2023 Nonalcoholic steatohepatitis (BOSS) Unspecified essential hypertension Essential hypertension PAST SURGICAL HISTORY Procedure Laterality Date CHOLECYSTECTOMY 10/2004 laparoscopic COLONOSCOPY FLX DX W/COLLJ SPEC WHEN PFRMD 12/16/07 Extensive sigmoid diverticulosis COLONOSCOPY FLX DX W/COLLJ SPEC WHEN PFRMD 05/25/10 Extensive sigmoid diverticulosis EGD TRANSORAL BIOPSY SINGLE/MULTIPLE 12/16/07 HH, Schatzki ring,antral gastritis EGD TRANSORAL BIOPSY SINGLE/MULTIPLE 05/25/10 HH LAPAROSCOPY SURG RPR INITIAL INGUINAL HERNIA 02-01-08 RIGHT inguinal hernia LAPAROSCOPY SURG RPR INITIAL INGUINAL HERNIA LEFT inguinal hernia PAST SURGICAL HISTORY OF 05/14/2011 Hernia repair REMV CATARACT EXTRACAP,INSERT LENS Right 11/02/2020 SN60WF +16.0 D Current Outpatient Medications Medication Sig VITAMIN E, BULK, MISC 400 Units two times a day. losartan (COZAAR) 50 mg tablet Take 50 mg by mouth once daily. cholecalciferol, vitamin D3, (VITAMIN D3 ORAL) Take by mouth once daily. saw/vit E/sod jerson/lyc/beta/pyg (PROSTATE HEALTH ORAL) Take by mouth once daily. ondansetron orally disintegrating 4 mg ORAL disintegrating tablet Take 1 tablet by mouth every 8 hours as needed. FOR NAUSEA (Patient not taking: Reported on 10/17/2020 ) No current facility-administered medications for this visit. ALLERGIES: Phenergan [Promethazine Hcl] PERSONAL HISTORY: Social History Tobacco Use Smoking status: Never Smokeless tobacco: Never Vaping Use Vaping Use: Never used Substance Use Topics Alcohol use: No Drug use: No FAMILY HISTORY Problem Relation Age of Onset Stroke Mother age 72 Diabetes Father age 90 and prostate cancer Cataract Father Prostate Cancer Father Psychiatry Sister A AND W, controlled with medication Hypertension Sister Diabetes Sister A AND W Diabetes Brother A AND W Diabetes Brother A AND W Diabetes Brother A AND W Diabetes Brother A AND W None Brother A AND W Colon Cancer Brother REVIEW OF SYSTEMS: General: The patient notes fatigue, notes weight loss, denies weight gain, denies feeling hot, and denies feelings of cold. Eyes: The patient denies glaucoma, denies eye injury/surgery, wears glasses or contacts. Ear/Nose/Throat: The patient notes allergies, denies hayfever, denies ear infections, and denies bloody noses. Cardiovascular: The patient denies chest pain, denies heart disease, notes high blood pressure,denies cardiac stent, denies prior heart attack, denies irregular heart beat, denies high cholesterol, denies poor circulation, denies heart failure, other cardiac issues, denies claudication, denies cold feet, denies peripheral arterial stent. Respiratory: The patient denies tuberculosis, denies pneumonia, denies frequent cough, denies pulmonary embolism, denies shortness of breath, and denies coughing up blood. Gastrointestinal: The patient denies difficulty swallowing, denies acid reflux, denies ulcers, denies vomiting, notes jaundice/hepatitis, denies gallbladder problems, denies black or tarry stools, denies hemorrhoids, denies bleeding from rectum, denies diverticulitis, denies constipation, notes diarrhea, denies loss of stool control, and denies hernias. Kidney/Bladder: The patient denies kidney stones, denies urine infections, and denies bloody urine. Skin: The patient denies a history of skin cancer, denies bleeding/changing moles, and denies a history of skin rash. Neurologic: The patient denies a history of epilepsy/convulsions, denies headaches, denies head/spinal injuries, and denies stroke/TIA. Psychiatric: The patient denies psychiatric medications, denies depression, and denies voices, denies substance abuse. Endocrine: The patient denies thyroid disorders, denies diabetes, and denie (more content not included)... Normal [facility] CNPNon 08-19-2023 CNPN Normal [facility] BRIEF OP NOTon 08-18-2023 BRIEF OP NOT Normal [facility] CT BIOPSY ABD/RETROPERIT MAS Son 08-18-2023 CT BIOPSY ABD/RETROPERIT MASS Normal [facility] NURSING PROGon 08-18-2023 NURSING PROG Normal [facility] PT EDon 08-18-2023 PT ED Normal [facility] SURGICAL PATHOLOGYon 024 CASE REPORT Normal [facility] Comment on above: Order Comment: Speci men Type: TISSUE SPECIMENOrdering Facility: [facility] Address: [address] [place] [address] Result Comment: Surg ical Pathology Report Case: [id number] Provider: Bear Bahena MD Collected: 08/18/2023 10:45 AMOrdering Location: [place] [address] Received: 08/18/2023 05:20 PMPathologist: William Malik MD, PhDSpecimen: SOFT TISSUE MASS BIOPSY, Perihepatic nodule Performed By: #### S ####[facility] LABCLIA [id number] [place] [address] [place] CLINICAL HISTORY Pancreatic adenocarcinoma Normal [facility] Comment on above: Order Comment: Speci men Type: TISSUE SPECIMENOrdering Facility: [facility] Address: [address] [place] [address] Performed By: #### S ####[facility] LABCLIA [id number] [place] [address] [place] DIAGNOSIS COMMENT Clinical h/o 1.2 cm perihepatic nodule is noted. Nonetheless, there is no evidence of malignancy in this material (multiple deeper levels examined). If clinical concern for a neoplastic process remains high, a repeat biopsy should be of value. Normal [facility] Comment on above: Order Comment: Speci men Type: TISSUE SPECIMENOrdering Facility: [facility] Address: [address] [place] [address] Performed By: #### S ####[facility] LABCLIA [id number] [address] [place] FINAL DIAGNOSIS Normal [facility] Comment on above: Order Comment: Speci men Type: TISSUE SPECIMENOrdering Facility: [facility] Address: [address] [place] [address] Result Comment: A. S oft tissue, perihepatic, biopsy:- Hepatic parenchyma with steatosis, cholestasis, patchy portal and lobular inflammation.- Detached fragment of predominantly devitalized fibroadipose tissue with hyalinization and saponification.- No evidence of malignancy in this material (multiple deeper levels examined).- See comment Performed By: #### S ####[facility] LABIA [id number] [address] [place] FINAL PERFORMING LAB Normal [facility] Comment on above: Order Comment: Speci men Type: TISSUE SPECIMENOrdering Facility: [facility] Address: [address] [place] [address] Result Comment: Diag nostic interpretation performed at [facility], [address] [place] [address] CLIA# [id number] Director: Rolando Marion M.D. Performed By: #### S ####[facility] LABCLIA [id number] [address] [place] GROSS DESCRIPTION Normal [facility] Comment on above: Order Comment: Speci men Type: TISSUE SPECIMENOrdering Facility: [facility] Address: [address] [place] [address] Result Comment: A. S OFT TISSUE MASS BIOPSYReceived in formalin are multiple segments of cylindrical tissue aggregating to 1.3 x 0.2 x 0.1 cm, wolfe-brown and of a soft and friable consistency. Totally submitted in one cassette.Gross examination performed at [facility], [address] [place], [place] [address]AMS August 18, 2023 10:38 PM Performed By: #### S ####[facility] LABCLIA [id number] [address] [address] [place] CNPNon 08-15-2023 CNPN Normal [facility] NURSING PROGon 08-13-2023 NURSING PROG HNO ID: [id number] Author: ASHLEIGH ABRAHAM RN Service: Nursing Author Type: Registered Nurse Type: Nursing Progress Note Filed: 08/13/2023 11:46 Note Text: . Pre-Procedure Checklist Kristin Bhanu Jane [phone] (home) 1950 73 year old There is no height or weight on file to calculate BMI. Allergies: Phenergan [Prometha* Comment: vital signs dropped Procedure: Port placement Date of Procedure: 08-21-23 Smoke: No Alcohol: No Street Drugs: No Diabetic: Yes Insulin: No Problems with Anesthesia (Self or Family?) No Saw Handle Assembler: none Saw township clerk in the last 6 months? No Recent EKG/Cardiac Testing: No Chest pain in the last 6 months (<6 months cardiac clearance needed): No History of: Heart Attack/Stroke/Blood Clot?: none Shortness of Breath: No Asthma: No Inhalers: No Any Outstanding Consults?: No If yes, list: Additional Notes: Normal [facility] CBC W Auto Differential pane l (Bld)on 08-12-2023 Basophils (Bld) [#/Vol] 0.09 10*3/uL <0.11 k/uL [facility] Basophils/100 WBC (Bld) 1.1 % [facility] Differential cell count method Nom (Bld) Auto [facility] Eosinophils (Bld) [#/Vol] 0.20 10*3/uL <0.46 k/uL [facility] Eosinophils/100 WBC (Bld) 2.5 % [facility] Erythrocyte distribution width (RBC) [Ratio] 15.9 % High 11.5 - 15.0 % [facility] Hematocrit (Bld) [Volume fraction] 34.8 % Low 39.0 - 51.0 % [facility] Hemoglobin (Bld) [Mass/Vol] 11.3 g/dL Low 13.0 - 17.0 g/dL [facility] Immature granulocytes (Bld) [#/Vol] 0.11 10*3/uL High <0.10 k/uL [facility] Immature granulocytes/100 WBC (Bld) 1.4 % [facility] Lymphocytes (Bld) [#/Vol] 1.24 10*3/uL 1.00 - 4.00 k/uL [facility] Lymphocytes/100 WBC (Bld) 15.6 % [facility] MCH (RBC) [Entitic mass] 29.0 pg 26.0 - 34.0 pg [facility] MCHC (RBC) [Mass/Vol] 32.5 g/dL 30.5 - 36.0 g/dL [facility] MCV (RBC) [Entitic vol] 89.5 fL 80.0 - 100.0 fL [facility] Monocytes (Bld) [#/Vol] 0.74 10*3/uL <0.87 k/uL [facility] Monocytes/100 WBC (Bld) 9.3 % [facility] Neutrophils (Bld) [#/Vol] 5.56 10*3/uL 1.45 - 7.50 k/uL [facility] Neutrophils/100 WBC (Bld) 70.1 % [facility] Nucleated RBC (Bld) [#/Vol] <0.01 k/uL [facility] Nucleated RBC/100 WBC (Bld) [Ratio] 0.0 /100 WBC [facility] Platelet mean volume (Bld) [Entitic vol] 10.5 fL 9.0 - 12.7 fL [facility] Platelets (Bld) [#/Vol] 458 10*3/uL High 150 - 400 k/uL [facility] RBC (Bld) [#/Vol] 3.89 10*6/uL Low 4.20 - 6.00 m/uL [facility] WBC (Bld) [#/Vol] 7.94 10*3/uL 3.70 - 11.00 k/uL [facility] Basophils (Bld) [#/Vol] 0.09 10*3/uL Normal <0.11 [facility] Comment on above: Order Comment: Speci men Type: BLOOD SPECIMENOrdering Facility: [facility] Address: [address] [place] [address] Performed By: #### 5 7021-8 ####[facility] MILLWAKLIA [id number] [place] [address] [place] Basophils/100 WBC (Bld) 1.1 % Normal [facility] Comment on above: Order Comment: Speci men Type: BLOOD SPECIMENOrdering Facility: [facility] Address: [address] [place] [address] Performed By: #### 5 7021-8 ####[facility] FLORIDAA [id number] [place] [address] [place] Differential cell count method Nom (Bld) Auto Normal [facility] Comment on above: Order Comment: Speci men Type: BLOOD SPECIMENOrdering Facility: [facility] Address: [address] [place] [address] Performed By: #### 5 7021-8 ####[facility] CENTERLIA [id number] [place] [address] [place] Eosinophils (Bld) [#/Vol] 0.20 10*3/uL Normal <0.46 [facility] Comment on above: Order Comment: Speci men Type: BLOOD SPECIMENOrdering Facility: [facility] Address: [address] [place] [address] Performed By: #### 5 7021-8 ####[facility] MED[facility] CENTERLIA [id number] [place] [address] [place] Eosinophils/100 WBC (Bld) 2.5 % Normal [facility] Comment on above: Order Comment: Speci men Type: BLOOD SPECIMENOrdering Facility: [facility] Address: [address] [place] [address] Performed By: #### 5 7021-8 ####[facility] TYLER [id number] [place] [address] [place] Erythrocyte distribution width (RBC) [Ratio] 15.9 % High 11.5-15.0 [facility] Comment on above: Order Comment: Speci men Type: BLOOD SPECIMENOrdering Facility: [facility] Address: [address] [place] [address] Performed By: #### 5 7021-8 ####[facility] HOSPITALNCCAMILLE [id number] [place] [address] [place] Hematocrit (Bld) [Volume fraction] 34.8 % Low 39.0-51.0 [facility] Comment on above: Order Comment: Speci men Type: BLOOD SPECIMENOrdering Facility: [facility] Address: [address] [place] [address] Performed By: #### 5 7021-8 ####[facility] FLORIDANorma [id number] [place] [address] [place] Hemoglobin (Bld) [Mass/Vol] 11.3 g/dL Low 13.0-17.0 [facility] Comment on above: Order Comment: Speci men Type: BLOOD SPECIMENOrdering Facility: [facility] Address: [address] [place] [address] Performed By: #### 5 7021-8 ####[facility] CENTERLI [id number] [place] [address] [place] Immature granulocytes (Bld) [#/Vol] 0.11 10*3/uL High <0.10 [facility] Comment on above: Order Comment: Speci men Type: BLOOD SPECIMENOrdering Facility: [facility] Address: [address] [place] [address] Performed By: #### 5 7021-8 ####[facility] MED[facility] CENTERLIA [id number] [place] [address] [place] Immature granulocytes/100 WBC (Bld) 1.4 % Normal [facility] Comment on above: Order Comment: Speci men Type: BLOOD SPECIMENOrdering Facility: [facility] Address: [address] [place] [address] Performed By: #### 5 7021-8 ####[facility] [id number] [place] [address] [place] Lymphocytes (Bld) [#/Vol] 1.24 10*3/uL Normal 1.00-4.00 [facility] Comment on above: Order Comment: Speci men Type: BLOOD SPECIMENOrdering Facility: [facility] Address: [address] [place] [address] Performed By: #### 5 7021-8 ####[facility] [id number] [place] [address] [place] Lymphocytes/100 WBC (Bld) 15.6 % Normal [facility] Comment on above: Order Comment: Speci men Type: BLOOD SPECIMENOrdering Facility: [facility] Address: [address] [place] [address] Performed By: #### 5 7021-8 ####[facility] [id number] [place] [address] [place] MCH (RBC) [Entitic mass] 29.0 pg Normal 26.0-34.0 [facility] Comment on above: Order Comment: Speci men Type: BLOOD SPECIMENOrdering Facility: [facility] Address: [address] [place] [address] Performed By: #### 5 7021-8 ####[facility] HOSPITALNCMOAB [facility] [id number] [place] [address] [place] MCHC (RBC) [Mass/Vol] 32.5 g/dL Normal 30.5-36.0 [facility] Comment on above: Order Comment: Speci men Type: BLOOD SPECIMENOrdering Facility: [facility] Address: [address] [place] [address] Performed By: #### 5 7021-8 ####[facility] HOSPITALNCA [id number] [place] [address] [place] MCV (RBC) [Entitic vol] 89.5 fL Normal 80.0-100.0 [facility] Comment on above: Order Comment: Speci men Type: BLOOD SPECIMENOrdering Facility: [facility] Address: [address] [place] [address] Performed By: #### 5 7021-8 ####[facility] HOSPITALNCMOAB [facility] [id number] [place] [address] [place] Monocytes (Bld) [#/Vol] 0.74 10*3/uL Normal <0.87 [facility] Comment on above: Order Comment: Speci men Type: BLOOD SPECIMENOrdering Facility: [facility] Address: [address] [place] [address] Performed By: #### 5 7021-8 ####[facility] [id number] [place] [address] [place] Monocytes/100 WBC (Bld) 9.3 % Normal [facility] Comment on above: Order Comment: Speci men Type: BLOOD SPECIMENOrdering Facility: [facility] Address: [address] [place] [address] Performed By: #### 5 7021-8 ####[facility] HOSPITALNCA [id number] [place] [address] [place] Neutrophils (Bld) [#/Vol] 5.56 10*3/uL Normal 1.45-7.50 [facility] Comment on above: Order Comment: Speci men Type: BLOOD SPECIMENOrdering Facility: [facility] Address: [address] [place] [address] Performed By: #### 5 7021-8 ####[facility] HOSPITALТАТЬЯНА [id number] [place] [address] [place] Neutrophils/100 WBC (Bld) 70.1 % Normal [facility] Comment on above: Order Comment: Speci men Type: BLOOD SPECIMENOrdering Facility: [facility] Address: [address] [place] [address] Performed By: #### 5 7021-8 ####[facility] HOSPITALCRISTOFERMOAB REG[facility] [id number] [place] [address] [place] Nucleated RBC (Bld) [#/Vol] 10*3/uL Normal <0.01 [facility] Comment on above: Order Comment: Speci men Type: BLOOD SPECIMENOrdering Facility: [facility] Address: [address] [place] [address] Performed By: #### 5 7021-8 ####[facility] [id number] [place] [address] [place] Nucleated RBC/100 WBC (Bld) [Ratio] 0.0 /100 WBC Normal [facility] Comment on above: Order Comment: Speci men Type: BLOOD SPECIMENOrdering Facility: [facility] Address: [address] [place] [address] Performed By: #### 5 7021-8 ####[facility] CENTERLIA [id number] [place] [address] [place] Platelet mean volume (Bld) [Entitic vol] 10.5 fL Normal 9.0-12.7 [facility] Comment on above: Order Comment: Speci men Type: BLOOD SPECIMENOrdering Facility: [facility] Address: [address] [place] [address] Performed By: #### 5 7021-8 ####[facility] HOSPITALNCLIA [id number] [place] [address] [place] Platelets (Bld) [#/Vol] 458 10*3/uL High 150-400 [facility] Comment on above: Order Comment: Speci men Type: BLOOD SPECIMENOrdering Facility: [facility] Address: [address] [place] [address] Performed By: #### 5 7021-8 ####[facility] FLORIDAA [id number] [place] [address] [place] RBC (Bld) [#/Vol] 3.89 10*6/uL Low 4.20-6.00 [facility] Comment on above: Order Comment: Speci men Type: BLOOD SPECIMENOrdering Facility: [facility] Address: [address] [place] [address] Performed By: #### 5 7021-8 ####[facility] HOSPITALNCA [id number] [place] [address] [place] WBC (Bld) [#/Vol] 7.94 10*3/uL Normal 3.70-11.00 [facility] Comment on above: Order Comment: Speci men Type: BLOOD SPECIMENOrdering Facility: [facility] Address: [address] [place] [address] Performed By: #### 5 7021-8 ####[facility] CENTERLIA [id number] [place] [address] [place] CNOVon 08-12-2023 CNOV Normal [facility] CNOVSPon 08-12-2023 CNOVSP Normal [facility] CNPNon 08-12-2023 CNPN Normal [facility] Comprehensive metabolic 2000 panelon 08-12-2023 Albumin [Mass/Vol] 3.9 g/dL 3.9 - 4.9 g/dL [facility] ALP [Catalytic activity/Vol] 320 U/L High 38 - 113 U/L [facility] ALT [Catalytic activity/Vol] 77 U/L High 10 - 54 U/L [facility] Anion gap [Moles/Vol] 11 mmol/L 9 - 18 mmol/L [facility] AST [Catalytic activity/Vol] 65 U/L High 14 - 40 U/L [facility] Bilirubin [Mass/Vol] 5.6 mg/dL High 0.2 - 1.3 mg/dL [facility] Calcium [Mass/Vol] 9.6 mg/dL 8.5 - 10. 2 mg/dL [facility] Chloride [Moles/Vol] 100 mmol/L 97 - 105 mmol/L [facility] CO2 [Moles/Vol] 24 mmol/L 22 - 30 mmol/L [facility] Creatinine [Mass/Vol] 1.12 mg/dL 0.73 - 1.22 mg/dL [facility] Estimated Glomerular Filtration Rate 70 mL/min/1.73m >=60 mL/min/1.7 3m [facility] Glucose [Mass/Vol] 176 mg/dL High 74 - 99 mg/dL [facility] Potassium [Moles/Vol] 3.7 mmol/L 3.7 - 5.1 mmol/L [facility] Protein [Mass/Vol] 7.1 g/dL 6.3 - 8.0 g/dL [facility] Sodium [Moles/Vol] 135 mmol/L Low 136 - 144 mmol/L [facility] Urea nitrogen [Mass/Vol] 30 mg/dL High 9 - 24 mg/dL [facility] Albumin [Mass/Vol] 3.9 g/dL Normal 3.9-4.9 [facility] Comment on above: Order Comment: Speci men Type: BLOOD SPECIMENOrdering Facility: [facility] Address: [address] [place] [address] Performed By: #### 1 9123-9, 51320-0 ####[facility] FLORIDANorma [id number] [address] [facility] ALP [Catalytic activity/Vol] 320 U/L High 38-113 [facility] Comment on above: Order Comment: Speci men Type: BLOOD SPECIMENOrdering Facility: [facility] Address: [address] [place] [address] Performed By: #### 1 9123-9, 55764-3 ####[facility] CATHY MILLTOWNCLIA [id number] [place] [address] [place] ALT [Catalytic activity/Vol] 77 U/L High 10-54 [facility] Comment on above: Order Comment: Speci men Type: BLOOD SPECIMENOrdering Facility: [facility] Address: [address] [place] [address] Performed By: #### 1 9123-9, 83811-1 ####[facility] MILLTOWNCLIA [id number] [place] [address] [place] Anion gap [Moles/Vol] 11 mmol/L Normal 9-18 [facility] Comment on above: Order Comment: Speci men Type: BLOOD SPECIMENOrdering Facility: [facility] Address: [address] [place] [address] Performed By: #### 1 9123-9, 03938-2 ####[facility] MILLTOWNCLIA [id number] [place] [address] [place] AST [Catalytic activity/Vol] 65 U/L High 14-40 [facility] Comment on above: Order Comment: Speci men Type: BLOOD SPECIMENOrdering Facility: [facility] Address: [address] [place] [address] Performed By: #### 1 9123-9, 53424-3 ####[facility] MILLTOWNCLIA [id number] [place] [address] [place] Bilirubin [Mass/Vol] 5.6 mg/dL High 0.2-1.3 [facility] Comment on above: Order Comment: Speci men Type: BLOOD SPECIMENOrdering Facility: [facility] Address: [address] [place] [address] Performed By: #### 1 9123-9, 26113-8 ####[facility] MILLTOWNCLIA [id number] [place] [address] [place] Calcium [Mass/Vol] 9.6 mg/dL Normal 8.5-10.2 [facility] Comment on above: Order Comment: Speci men Type: BLOOD SPECIMENOrdering Facility: [facility] Address: [address] [place] [address] Performed By: #### 1 9123-9, 86140-5 ####[facility] MILLTOWNCLIA [id number] [place] [address] [place] Chloride [Moles/Vol] 100 mmol/L Normal 97-105 [facility] Comment on above: Order Comment: Speci men Type: BLOOD SPECIMENOrdering Facility: [facility] Address: [address] [place] [address] Performed By: #### 1 9123-9, 92771-3 ####[facility] CENTERLIA [id number] [place] [address] [place] CO2 [Moles/Vol] 24 mmol/L Normal 22-30 [facility] Comment on above: Order Comment: Speci men Type: BLOOD SPECIMENOrdering Facility: [facility] Address: [address] [place] [address] Performed By: #### 1 9123-9, 44592-0 ####[facility] CENTERLIA [id number] [place] [address] [place] Creatinine [Mass/Vol] 1.12 mg/dL Normal 0.73-1.22 [facility] Comment on above: Order Comment: Speci men Type: BLOOD SPECIMENOrdering Facility: [facility] Address: [address] [place] [address] Performed By: #### 1 9123-9, 38977-7 ####[facility] MILLWNCLIA [id number] [place] [address] [place] Creatinine and Glomerular filtration rate.predicted panel (S/P/Bld) 70 mL/min/1.73m??? Normal >=60 [facility] Comment on above: Order Comment: Lay barkley Type: BLOOD SPECIMENOrdering Facility: [facility] Address: [address] [place] [address] Result Comment: Emely mated Glomerular Filtration Rate (eGFR) is calculated using the 2020 CKD-EPI creatinine equation. This equation utilizes serum creatinine, sex, and age as parameters. The creatinine assay has traceable calibration to isotope dilution-mass spectrometry. Refer to KDIGO guidelines for clinical interpretation. In patients with unstable renal function, e.g. those with acute kidney injury, the eGFR may not accurately reflect actual GFR. Performed By: #### 1 9123-9, 96202-8 ####[facility] [id number] [place] [address] [place] Glucose [Mass/Vol] 176 mg/dL High 74-99 [facility] Comment on above: Order Comment: Lay barkley Type: BLOOD SPECIMENOrdering Facility: [facility] Address: [address] [place] [address] Result Comment: The [place] Diabetes Association (ADA) provides guidance for cutoff values for fasting glucose and random glucose. The ADA defines fasting as no caloric intake for at least 8 hours. Fasting plasma glucose results between 100 to 125 mg/dL indicate increased risk for diabetes (prediabetes).Fasting plasma glucose results greater than or equal to 126 mg/dL meet the criteria for diagnosis of diabetes. In the absence of unequivocal hyperglycemia, results should be confirmed by repeat testing. In a patient with classic symptoms of hyperglycemia or hyperglycemic crisis, random plasma glucose results greater than or equal to 200 mg/dL meet the criteria for diagnosis of diabetes.Reference: Standards of Medical Care in Diabetes 2016, [place] Diabetes Association. Diabetes Care. 2016.39(Suppl 1). Performed By: #### 1 9123-9, 05492-3 ####[facility] [id number] [place] [address] [place] Potassium [Moles/Vol] 3.7 mmol/L Normal 3.7-5.1 [facility] Comment on above: Order Comment: Speci men Type: BLOOD SPECIMENOrdering Facility: [facility] Address: [address] [place] [address] Performed By: #### 1 9123-9, ####[facility]ITALNCLI [id number] [place] [address] [place] Protein [Mass/Vol] 7.1 g/dL Normal 6.3-8.0 [facility] Comment on above: Order Comment: Speci men Type: BLOOD SPECIMENOrdering Facility: [facility] Address: [address] [place] [address] Performed By: #### 1 9123-9, 06388-8 ####[facility] [id number] [place] [address] [place] Sodium [Moles/Vol] 135 mmol/L Low 136-144 [facility] Comment on above: Order Comment: Speci men Type: BLOOD SPECIMENOrdering Facility: [facility] Address: [address] [place] [address] Performed By: #### 1 9123-9, ####[facility]ITALNCMO[facility] [id number] [place] [address] [place] Urea nitrogen [Mass/Vol] 30 mg/dL High 9-24 [facility] Comment on above: Order Comment: Speci men Type: BLOOD SPECIMENOrdering Facility: [facility] Address: [address] [place] [address] Performed By: #### 1 9123-9, 86268-6 ####[facility] FLORIDAA [id number] [place] [address] [place] DPYD PHENOTYPE BLOODon 08-11 DPYD PHENOTYPE BLOOD DPYD Normal Metabolizer (DPYNLM) Normal [facility] Comment on above: Order Comment: Speci men Type: BLOOD SPECIMENOrdering Facility: [facility] Address: [address] [place] [address] Performed By: #### D UPNL1 ####[facility] LIMSCLIA [id number] [place] [address] [place]#### DPYDPH, UGT1AP ####[facility] LABCLIA [id number] [address] [place] DPYD/UGT1A1 GENOTYPING PANEL on 08-12-2023 DPYD/UGT1A1 GENOTYPING PANEL RESULT Normal [facility] Comment on above: Order Comment: Speci men Type: BLOOD SPECIMENOrdering Facility: [facility] Address: [address] [place] [address] Result Comment: [facility] (PGx) DPYD and UGT1A1 GenotypingLaboratory Accession Number: [id number] Genotype: *1/*1DPYD Activity Score: 2DPYD Predicted Phenotype: DPYD Normal CpltpimtcklKGZ0Z9 Genotype: *1/*80+*10PNC1D4 Predicted Phenotype: UGT1A1 Intermediate MetabolizerInterpretation:Two normal function alleles were observed in the DPYD gene (seevariant details below) resulting in an activity score of 2. Thisactivity score is associated with a DPYD normal metabolizer phenotype.DPYD normal metabolizers are not expected to require (based onpharmacogenomic results alone) selective adjustment of the dose ofmedications metabolized by DPD. Please consult a clinical pharmacistfor more information regarding drug therapy. Questions regardingmolecular testing details should be directed .One decreased function UGT1A1 allele, in combination with either one normal function or one increased function UGT1A1 allele, wasobserved in this sample (see variant details below). This isassociated with a UGT1A1 intermediate metabolizer phenotype. PZB3K4uaapipalsysb metabolizers are not expected to require (based onpharmacogenomic results alone) selective adjustment of the dose ofmedications metabolized by UGT. Please consult a clinical pharmacistfor more information regarding drug therapy. Questions regardingmolecular testing details should be directed .The DPYD gene encodes dihydropyrimidine dehydrogenase (DPD). Thisenzyme is involved in the metabolism of fluoropyrimidines. The PZR5Q8ivas encodes UDP-glucuronosyltransferase (UGT). UGT is involved in themetabolism of certain medications including ones used in oncology. Forclinical correlation, drug-specific guidelines are available toprovide phenotype assignment and therapeutic recommendations based onphenotype. Patients who carry genetic variants associated with alteredmetabolism may be at risk for an adverse or poor response to drugsthat are predominantly metabolized by the associated enzyme (DPD orUGT). For patients with altered DPD and/or UGT activity, alternativepharmacological agents or dosing adjustments may be needed formedications metabolized by this enzyme to avoid an unexpected oradverse response.Please note that this DPYD genotyping test includes variants that maynot have been assayed in a previous test performed elsewhere. If thereis discordance of phenotype results between laboratories, it is likelya function of the different variants assayed in each test. Themethodology section of the report (see below) lists the variantsinterrogated by this test.DPYD Variant Details:[id number] Variant Details:UGT1A1 [id number], c.-346C>T, g.571511312T>T; (legacy name 80)UGT1A1 [id number], c.-41_-40dupTA g.[id number]_233760248dupTA; (legacyname 28)DPYD Additional Information:In addition to increased risk of 5-fluorouracil toxicity, variants inthe DPYD gene may be associated with DPD deficiency, an autosomalrecessive inborn error of metabolism (OMIM: 923099). DPD deficiencyexhibits a wide range of phenotypic variability, from no symptoms to jamel rare severe neurological disorder with onset in infancy orchildhood (prevalence unknown). For the vast majority of affectedindividuals, the first and only symptom is sensitivity to5-fluorouracil and capecitabine. It is possible that individuals withDPD deficiency may be identified by the presence of two no-function DPYD variants (activity score = 0). However, this test is designed asa pharmacogenomic test and is not intended as a diagnostic or carriertest for DPD deficiency. A formal genetics consultation is recommendedfor those with concerns regarding DPD deficiency.Limitations:DNA studies do not provide a definitive genetic or pharmacogenomicrisk in all individuals. This test is designed to detect a specificset of variants (see list below) in the DPYD gene (OMIM 467026) wyqNBB8V5 gene (OMIM 687484). This test does not detect all sequencevariants in either gene. Uncommon variants or single nucleotidepolymorphisms may affect binding of primers and probes and may resultin false negative, false positive, or indeterminate results. Theabsence of abnormal variants as analyzed in this test is interpretedas the presence of *1/*1 (wild type/normal) genotype. The phenotypeprovided in the interpretation may be impacted by undetected geneticand/or non-genetic factors such as drug-drug interactions.Methodology:Purified genomic DNA was subjected to polymerase chain reaction-basedamplification. The DPYD (NM_000110.3) and UGT1A1 (NM_000463.3) geneswere interrogated for known, clinically relevant variants. Primerextension products were analyzed using matrix-assisted laserdesorption/ionization massspectrometry, and specific genotypesassigned were then translated to the appropriate star (*) allele (DPYDand UGT1A1) and activity score (DPYD), see lists below. The referencegenome used is GRCh38/hg38.UGT1A1 star alleles: *1, *6, *27, *28, *36, *37, *80, *80+*28,*80+*36, and *80+*37. These alleles are detected using the presence orabsence of the following variants, RefSNP ID: [id number], [id number] (TA repeats), and [id number].DPYD star alleles and targeted variants:RefSNP ID Legacy Total Allele Highest Allele Name Frequency Frequency General Population (Population)No variantdetected *[id number] *2A 0.6% 2.4% (Eur F)[id number] *3 n/[id number] *7 0.01% 0.02%(Eur NF)hz8858678 *8 0.01% 0.03% (S )is5863291 *10 n/stl84976898 *12 0.0008% 0.003% (S )[id number] *13 0.03% 0.06% (Eur F)[id number] Y186C 0.2% 2.15% ()[id number] c.2846A>T 0.3% 0.5% (Eur NF)wr98412494 HapB3 1.4% 2.1 % (Eur NF)xw31184788 c.1236G>A 1.4% 2.1% (Eur NF)Population frequencies are from gnomAD and may be different inspecific ethnic groups. The allele frequency shown is the total allelefrequency in all populations. The highest allele frequency for asingle population is also noted (Eur F = [place], Eur NF = non-[place], S = South ). Note: [id number] (HapB3)and [id number] (c.1236G>A) are in linkage disequilibrium thus aretypically seen together.References:1) Clinical Pharmacogenetics Implementation Consortium (CPIC):www.CPICpgx.org2) Pharmacogene Variation Consortium (PharmVar): www.PharmVar.org3) Genome Aggregation Database V2.1.1 (gnomAD), accessed June2021, https://gnomad.broadinstitute.org4) Silvino-Da M, Chelly EM, Hook JM, et al. PharmacogenomicsKnowledge for Personalized Medicine Clinical Pharmacology andTherapeutics (2012) 92(4): 414-417.5) Heide U, Sanam RAINES, Jae SM, et al. Clinical PharmacogeneticsImplementation Consortium (CPIC) Guideline for DihydropyrimidineDehydrogenase Genotype and Fluoropyrimidine Dosin Update. ClinPharmacol Ther. 2018;103(2):210-216.6) Medlineplus, TwentyFeet Library of Medicine 2020. Dihydropyrimidinedehydrogenase deficiency, accessed 26 December 2020,https://medlineplus.gov/genetics/condition/dihydropyrimidine- dehydrogenase-deficiency/#resources7) Geri N, Hector GO, Franky FELDER, marla Kline ABP. Purine andPyrimidine Metabolism: Pyrimidine Metabolism: DihydropyrimidineDehydrogenase. Rebel's Principles and Practice of MedicalGenetics and Genomics: Metabolic Disorders, Seventh Edition. Edited byDANG Thurston et al, Elsevier. 2020. Sections 6.3.4 - 6.3.4.4https://vpv-gmpwzezxvpr-ziv.ccmain.[facility].org/#!/content/b ook/3-s2.0-O6672299463557956786?scrollTo=%[email or web address]) Tameka RS, Kisha MH, Viridiana CE, et al. Clinical PharmacogeneticsImplementation Consortium (CPIC) Guideline for UGT1A1 and AtazanavirPrescribing. Clinical Pharmacology and Therapeutics (2016) Sep;99(4):363-9.9) Elisa Tillman. Overview of Glibert's syndrome. Drug TherBull. 2019 Jul 57(2):27-30.10) [facility] 2020, Gilbert Syndrome, accessed 26 December 2020,https://my.[facility].org/health/diseases/74659-stgbvvii -syndromeDisclaimer:This test was developed and its performance characteristics determinedby [facility] Pathology and LaboratoryMedicine [place] ([facility]). It has not been cleared or approved bythe FDA. -PLWI is regulated under CLIA as certified to perform high-complexity testing. This test is used for clinical purposes. It shouldnot be regarded as investigational or for research.Testing [place] [address]. CLIA Number: [id number] reviewed by Nereida Chavez, PhD, [facility] Performed By: #### D UPNL1 ####[facility] LIMSCLIA [id number] [place] [address] [place]#### DPYDPH, UGT1AP ####[facility] LABCLIA [id number] [place] [address] [place] HBV core Ab Ser Qlon 024 HBV core Ab Ql (S) Negative Normal Negative [facility] Comment on above: Order Comment: Speci men Type: BLOOD SPECIMENOrdering Facility: [facility] Address: [address] [place] [address] Result Comment: No e vidence of current or past infection with Hepatitis B virus. Should recent infection be suspected, repeat testing may be considered 3-4 weeks after this draw. Performed By: #### 5 195-3, 47912-3, 28724-8 ####[facility] LABCLIA [id number] [place] [address] [place] HBV surface Ab Ql (S)on HBV surface Ab Qn (S) <8.00 Normal [facility] Comment on above: Order Comment: Speci men Type: BLOOD SPECIMENOrdering Facility: [facility] Address: [address] [place] [address] Result Comment: <8 m IU/mL: No serological evidence of immunity to Hepatitis B Virus.>/= 8 to <12 mIU/mL: No serological evidence of immunity to Hepatitis B Virus.>/= 12 mIU/mL: Consistent with serological evidence of immunity to Hepatitis B Virus. Performed By: #### 5 195-3, 10050-7, 10990-2 ####[facility] LABIA [id number] [address] [place] HBV surface Ab Ser Qlon HBV surface Ab Ql (S) Negative Normal [facility] Comment on above: Order Comment: Speci men Type: BLOOD SPECIMENOrdering Facility: [facility] Address: [address] [place] [address] Result Comment: No s erological evidence of immunity to Hepatitis B Virus. Performed By: #### 5 195-3, 89950-3, 31152-0 ####[facility] LABIA [id number] [place] [address] [place] HBV surface Ag Ser Qlon HBV surface Ag Ql (S) Negative Normal Negative [facility] Comment on above: Order Comment: Speci men Type: BLOOD SPECIMENOrdering Facility: [facility] Address: [address] [place] [address] Performed By: #### 5 195-3, 44174-3, 31260-8 ####[facility] LABCLIA [id number] [place] [address] [place] HCV Ab Ser Qlon 08-12-2023 HCV Ab Ql (S) Negative Normal Negative [facility] Comment on above: Order Comment: Speci men Type: BLOOD SPECIMENOrdering Facility: [facility] Address: [address] [place] [address] Result Comment: The result suggests no evidence of active infection with Hepatitis C virus. Should recent infection be suspected, repeat testing may be considered 4-6 weeks after this draw. Performed By: #### 1 6128-1 ####[facility] LABCLIA [id number] [place] [address] [place] MAGNESIUM BLDon 08-12-2023 Magnesium [Mass/Vol] 2.0 mg/dL 1.7 - 2.3 mg/dL [facility] Magnesium SerPl-mCncon 08-11 Magnesium [Mass/Vol] 2.0 mg/dL Normal 1.7-2.3 [facility] Comment on above: Order Comment: Speci men Type: BLOOD SPECIMENOrdering Facility: [facility] Address: [address] [place] [address] Performed By: #### 1 9123-9, 73741-5 ####[facility] [id number] [place] [address] [place] NURSING PROGon 08-12-2023 NURSING PROG Normal [facility] UGT1A1 PHENOTYPEon UGT1A1 PHENOTYPE BLOOD UGT1A1 Intermediate Metabolizer (UGTIMM) Normal [facility] Comment on above: Order Comment: Speci men Type: BLOOD SPECIMENOrdering Facility: [facility] Address: [address] [place] [address] Performed By: #### D UPNL1 ####[facility] LIMSCLIA [id number] [address] [place]#### DPYDPH, UGT1AP ####[facility] LABCLIA [id number] [place] [address] [place] CNPNon 08-07-2023 CNPN Normal [facility] ANES POSTPROC EVALon 024 ANES POSTPROC EVAL Normal [facility] ANES PRE-OPon 08-06-2023 ANES PRE-OP Normal [facility] ERCPon 08-06-2023 ERCP Normal [facility] ERCP Study observation Narra tiveon 08-06-2023 [facility] HISTORY PHYSICALon HISTORY PHYSICAL Normal [facility] NURSING PROGon 08-06-2023 NURSING PROG Normal [facility] SURGICAL PATHOLOGYon 024 CASE REPORT Normal [facility] Comment on above: Order Comment: Speci men Type: TISSUE SPECIMENOrdering Facility: [facility] Address: [address] [place] [address] Result Comment: Surg [facility] Pathology Report Case: [id number] Provider: Vickie James Collected: 08/06/2023 02:45 PM MD SumitOrdering Location: Gastroenterology Received: 08/06/2023 05:39 PMPathologist: Althea Jaramillo MDSpecimen: PANCREAS BIOPSY, Pancreas head mass FNB Performed By: #### S ####[facility] LABCLIA [id number] [place] [address] [place] DIAGNOSIS COMMENT Normal [facility] Comment on above: Order Comment: Speci men Type: TISSUE SPECIMENOrdering Facility: [facility] Address: [address] [place] [address] Result Comment: Panc reatic head mass is noted.Seen in consultation with Dr. Malik who is in agreement with this interpretation. Performed By: #### S ####[facility] LABCLIA [id number] [place] [address] [place] FINAL DIAGNOSIS Normal [facility] Comment on above: Order Comment: Speci men Type: TISSUE SPECIMENOrdering Facility: [facility] Address: [address] [place] [address] Result Comment: Panc reas, head, mass, biopsy:-Adenocarcinoma Performed By: #### S ####[facility] LABCLIA [id number] [place] [address] [place] FINAL PERFORMING LAB Normal [facility] Comment on above: Order Comment: Speci men Type: TISSUE SPECIMENOrdering Facility: [facility] Address: [address] [place] [address] Result Comment: Diag nostic interpretation performed at [facility], [address] [place] [address] CLIA# [id number] Director: Rolando Marion M.D. Performed By: #### S ####[facility] LABCLIA [id number] [address] [place] GROSS DESCRIPTION Normal [facility] Comment on above: Order Comment: Speci men Type: TISSUE SPECIMENOrdering Facility: [facility] Address: [address] [place] [address] Result Comment: A. P ANCREAS BIOPSYReceived in formalin are multiple segments of cylindrical tissue aggregating to 2.3 x 0.7 x 0.1 cm, red-brown and of a soft and friable consistency. Totally submitted in one cassette.Gross examination performed at [facility], [address] [place], [place] [address]KK August 06, 2023 8:39 PM Performed By: #### S ####[facility] LABCLIA [id number] [place] [address] [place] Upper EUSon 08-06-2023 Upper EUS Normal [facility] CNOVon 08-05-2023 CNOV Normal [facility] CNPNon 08-05-2023 CNPN Normal [facility] CREATININE, BLOOD (POC)on Creatinine [Mass/Vol] 1.40 mg/dL 0.7 - 1.4 mg/dL [facility] eGFR (POCT) 54 mL/min/1.[address] [facility] [address] Abdomen and Pelvis W cont rast Carmen 08-05-[address] [facility] [address] CHEST W IVCONon CT CHEST W IVCON Normal [facility] CT PANCREAS/PELVIS W IVCONon 08-05-2023 CT PANCREAS/PELVIS W IVCON Normal [facility] 25(OH)D3 SerPl-mCncon 2023 25-hydroxyvitamin D3 [Mass/Vol] 24.9 ng/mL Low 31.0-80.0 [facility] Comment on above: Order Comment: Speci men Type: BLOOD SPECIMENOrdering Facility: [facility] Address: [address] [place] [address] Result Comment: Clas sification of 25 [place] Vitamin D status:Deficiency/Insufficiency: < or = 30 ng/ml.Sufficiency/Optimal Levels: 31-80 ng/mLToxicity: > 100 ng/mL.Test performed by chemiluminescent immunoassay. Performed By: #### 1 989-3 ####[facility] LABCLIA [id number] [place] [address] [place] CBC W Auto Differential pane l (Bld)on 08-04-2023 Basophils (Bld) [#/Vol] 0.06 10*3/uL Normal <0.11 [facility] Comment on above: Order Comment: Speci men Type: BLOOD SPECIMENOrdering Facility: [facility] Address: [address] [place] [address] Performed By: #### 5 7021-8 ####[facility] [id number] [place] [address] [place] Basophils/100 WBC (Bld) 0.7 % Normal [facility] Comment on above: Order Comment: Speci men Type: BLOOD SPECIMENOrdering Facility: [facility] Address: [address] [place] [address] Performed By: #### 5 7021-8 ####[facility]ITAL[facility] [id number] [place] [address] [place] Differential cell count method Nom (Bld) Auto Normal [facility] Comment on above: Order Comment: Speci men Type: BLOOD SPECIMENOrdering Facility: [facility] Address: [address] [place] [address] Performed By: #### 5 7021-8 ####[facility] [id number] [place] [address] [place] Eosinophils (Bld) [#/Vol] 0.23 10*3/uL Normal <0.46 [facility] Comment on above: Order Comment: Speci men Type: BLOOD SPECIMENOrdering Facility: [facility] Address: [address] [place] [address] Performed By: #### 5 7021-8 ####[facility] [id number] [place] [address] [place] Eosinophils/100 WBC (Bld) 2.7 % Normal [facility] Comment on above: Order Comment: Speci men Type: BLOOD SPECIMENOrdering Facility: [facility] Address: [address] [place] [address] Performed By: #### 5 7021-8 ####[facility] [id number] [place] [address] [place] Erythrocyte distribution width (RBC) [Ratio] 18.4 % High 11.5-15.0 [facility] Comment on above: Order Comment: Speci men Type: BLOOD SPECIMENOrdering Facility: [facility] Address: [address] [place] [address] Performed By: #### 5 7021-8 ####[facility]ITAL[facility] [id number] [place] [address] [place] Hematocrit (Bld) [Volume fraction] 33.1 % Low 39.0-51.0 [facility] Comment on above: Order Comment: Speci men Type: BLOOD SPECIMENOrdering Facility: [facility] Address: [address] [place] [address] Performed By: #### 5 7021-8 ####[facility] [id number] [place] [address] [place] Hemoglobin (Bld) [Mass/Vol] 11.6 g/dL Low 13.0-17.0 [facility] Comment on above: Order Comment: Speci men Type: BLOOD SPECIMENOrdering Facility: [facility] Address: [address] [place] [address] Performed By: #### 5 7021-8 ####[facility] [id number] [place] [address] [place] Immature granulocytes (Bld) [#/Vol] 0.07 10*3/uL Normal <0.10 [facility] Comment on above: Order Comment: Speci men Type: BLOOD SPECIMENOrdering Facility: [facility] Address: [address] [place] [address] Performed By: #### 5 7021-8 ####[facility] H[facility]ITALNCLIA [id number] [place] [address] [place] Immature granulocytes/100 WBC (Bld) 0.8 % Normal [facility] Comment on above: Order Comment: Speci men Type: BLOOD SPECIMENOrdering Facility: [facility] Address: [address] [place], [place] [address] Performed By: #### 5 7021-8 ####[facility] HOS[facility]ITALNCLIA [id number] [place] [address] [place] Lymphocytes (Bld) [#/Vol] 0.88 10*3/uL Low 1.00-4.00 [facility] Comment on above: Order Comment: Speci men Type: BLOOD SPECIMENOrdering Facility: [facility] Address: [address] [place] [address] Performed By: #### 5 7021-8 ####[facility] HOSPITALТАТЬЯНА [id number] [address] [place] [facility] Lymphocytes/100 WBC (Bld) 10.3 % Normal [facility] Comment on above: Order Comment: Speci men Type: BLOOD SPECIMENOrdering Facility: [facility] Address: [address] [place] [address] Performed By: #### 5 7021-8 ####[facility] [id number] [place] [address] [place] MCH (RBC) [Entitic mass] 28.6 pg Normal 26.0-34.0 [facility] Comment on above: Order Comment: Speci men Type: BLOOD SPECIMENOrdering Facility: [facility] Address: [address] [place] [address] Performed By: #### 5 7021-8 ####[facility] [id number] [place] [address] [place] MCHC (RBC) [Mass/Vol] 35.0 g/dL Normal 30.5-36.0 [facility] Comment on above: Order Comment: Speci men Type: BLOOD SPECIMENOrdering Facility: [facility] Address: [address] [place] [address] Performed By: #### 5 7021-8 ####[facility] HOSPITALNCLI [id number] [place] [address] [place] MCV (RBC) [Entitic vol] 81.7 fL Normal 80.0-100.0 [facility] Comment on above: Order Comment: Speci men Type: BLOOD SPECIMENOrdering Facility: [facility] Address: [address] [place] [address] Performed By: #### 5 7021-8 ####[facility] MILLTOWNCLIA [id number] [place] [address] [place] Monocytes (Bld) [#/Vol] 0.64 10*3/uL Normal <0.87 [facility] Comment on above: Order Comment: Speci men Type: BLOOD SPECIMENOrdering Facility: [facility] Address: [address] [place] [address] Performed By: #### 5 7021-8 ####[facility] CENTERLIA [id number] [place] [address] [place] Monocytes/100 WBC (Bld) 7.5 % Normal [facility] Comment on above: Order Comment: Speci men Type: BLOOD SPECIMENOrdering Facility: [facility] Address: [address] [place] [address] Performed By: #### 5 7021-8 ####[facility] MED[facility] CENTERLIA [id number] [place] [address] [place] Neutrophils (Bld) [#/Vol] 6.66 10*3/uL Normal 1.45-7.50 [facility] Comment on above: Order Comment: Speci men Type: BLOOD SPECIMENOrdering Facility: [facility] Address: [address] [place] [address] Performed By: #### 5 7021-8 ####[facility] MED[facility] CENTERLIA [id number] [place] [address] [place] Neutrophils/100 WBC (Bld) 78.0 % Normal [facility] Comment on above: Order Comment: Speci men Type: BLOOD SPECIMENOrdering Facility: [facility] Address: [address] [place] [address] Performed By: #### 5 7021-8 ####[facility] H[facility]ITALNCLIA [id number] [place] [address] [place] Nucleated RBC (Bld) [#/Vol] 10*3/uL Normal <0.01 [facility] Comment on above: Order Comment: Speci men Type: BLOOD SPECIMENOrdering Facility: [facility] Address: [address] [place] [address] Performed By: #### 5 7021-8 ####[facility]ITALN[facility] [id number] [place] [address] [place] Nucleated RBC/100 WBC (Bld) [Ratio] 0.0 /100 WBC Normal [facility] Comment on above: Order Comment: Speci men Type: BLOOD SPECIMENOrdering Facility: [facility] Address: [address] [place] [address] Performed By: #### 5 7021-8 ####[facility] [id number] [place] [address] [place] Platelet mean volume (Bld) [Entitic vol] 11.6 fL Normal 9.0-12.7 [facility] Comment on above: Order Comment: Speci men Type: BLOOD SPECIMENOrdering Facility: [facility] Address: [address] [place] [address] Performed By: #### 5 7021-8 ####[facility] [id number] [place] [address] [place] Platelets (Bld) [#/Vol] 303 10*3/uL Normal 150-400 [facility] Comment on above: Order Comment: Speci men Type: BLOOD SPECIMENOrdering Facility: [facility] Address: [address] [place] [address] Performed By: #### 5 7021-8 ####[facility] [id number] [place] [address] [place] RBC (Bld) [#/Vol] 4.05 10*6/uL Low 4.20-6.00 [facility] Comment on above: Order Comment: Speci men Type: BLOOD SPECIMENOrdering Facility: [facility] Address: [address] [place] [address] Performed By: #### 5 7021-8 ####[facility] HOSPITALNCLIA [id number] [place] [address] [place] WBC (Bld) [#/Vol] 8.54 10*3/uL Normal 3.70-11.00 [facility] Comment on above: Order Comment: Speci men Type: BLOOD SPECIMENOrdering Facility: [facility] Address: [address] [place] [address] Performed By: #### 5 7021-8 ####[facility]PITALNCLIA [id number] [place] [address] [place] CNPNon 08-04-2023 CNPN Normal [facility] Cancer Ag19-9 SerPl-aCncon 0 08-04-2023 Cancer Ag 19-9 Qn 1812.0 [arb'U]/mL High <36.0 [facility] Comment on above: Order Comment: Speci men Type: BLOOD SPECIMENOrdering Facility: [facility] Address: [address] [place] [address] Result Comment: Rust er antigen 19-9 test is used as an aid in monitoring response to treatment or recurrence in patients with established pancreatic, hepatobiliary, or gastrointestinal malignancies. Clinical correlation is required.The CA 19-9 Antigen test was performed using the Álvaro Grawn [employer] DXI paramagnetic particle chemiluminescent immunoassay method. Results obtained with different assay methods or kits cannot be used interchangeably. Performed By: #### 2 4108-3 ####[facility] LABCLIA [id number] [place] [address] [place] Comprehensive metabolic 2000 panelon 08-04-2023 Albumin [Mass/Vol] 3.4 g/dL Low 3.9-4.9 [facility] Comment on above: Order Comment: Speci men Type: BLOOD SPECIMENOrdering Facility: [facility] Address: [address] [place] [address] Performed By: #### 2 4323-8 ####[facility] MILLTOWNCLIA [id number] [place] [address] [place] ALP [Catalytic activity/Vol] 618 U/L High 38-113 [facility] Comment on above: Order Comment: Speci men Type: BLOOD SPECIMENOrdering Facility: [facility] Address: [address] [place] [address] Performed By: #### 2 4323-8 ####[facility] H[facility]PITALWNCLIA [id number] [place] [address] [place] ALT [Catalytic activity/Vol] 237 U/L High 10-54 [facility] Comment on above: Order Comment: Speci men Type: BLOOD SPECIMENOrdering Facility: [facility] Address: [address] [place] [address] Performed By: #### 2 4323-8 ####[facility] CENTERLIA [id number] [place] [address] [place] Anion gap [Moles/Vol] 9 mmol/L Normal 9-18 [facility] Comment on above: Order Comment: Speci men Type: BLOOD SPECIMENOrdering Facility: [facility] Address: [address] [place] [address] Performed By: #### 2 4323-8 ####[facility]PITALNCLIA [id number] [place] [address] [place] AST [Catalytic activity/Vol] 182 U/L High 14-40 [facility] Comment on above: Order Comment: Speci men Type: BLOOD SPECIMENOrdering Facility: [facility] Address: [address] [place] [address] Performed By: #### 2 4323-8 ####[facility] HOSPITALNCLIA [id number] [place] [address] [place] Bilirubin [Mass/Vol] 19.9 mg/dL High 0.2-1.3 [facility] Comment on above: Order Comment: Speci men Type: BLOOD SPECIMENOrdering Facility: [facility] Address: [address] [place] [address] Performed By: #### 2 4323-8 ####[facility] CENTERLIA [id number] [place] [address] [place] Calcium [Mass/Vol] 9.1 mg/dL Normal 8.5-10.2 [facility] Comment on above: Order Comment: Speci men Type: BLOOD SPECIMENOrdering Facility: [facility] Address: [address] [place] [address] Performed By: #### 2 4323-8 ####[facility] [id number] [place] [address] [place] Chloride [Moles/Vol] 98 mmol/L Normal 97-105 [facility] Comment on above: Order Comment: Speci men Type: BLOOD SPECIMENOrdering Facility: [facility] Address: [address] [place] [address] Performed By: #### 2 4323-8 ####[facility] CENTERLIA [id number] [place] [address] [place] CO2 [Moles/Vol] 23 mmol/L Normal 22-30 [facility] Comment on above: Order Comment: Speci men Type: BLOOD SPECIMENOrdering Facility: [facility] Address: [address] [place] [address] Performed By: #### 2 4323-8 ####[facility] FLORIDAA [id number] [place] [address] [place] Creatinine [Mass/Vol] Normal [facility] Comment on above: Order Comment: Speci men Type: BLOOD SPECIMENOrdering Facility: [facility] Address: [address] [place] [address] Result Comment: Unab le to assay. Specimen significantly icteric. Performed By: #### 2 4323-8 ####[facility]ITALN[facility] [id number] [place] [address] [place] Creatinine and Glomerular filtration rate.predicted panel (S/P/Bld) Normal [facility] Comment on above: Order Comment: Lay barkley Type: BLOOD SPECIMENOrdering Facility: [facility] Address: [address] [place] [address] Result Comment: Emely mated Glomerular Filtration Rate (eGFR) is calculated using the 2020 CKD-EPI creatinine equation. This equation utilizes serum creatinine, sex, and age as parameters. The creatinine assay has traceable calibration to isotope dilution-mass spectrometry. Refer to KDIGO guidelines for clinical interpretation. In patients with unstable renal function, e.g. those with acute kidney injury, the eGFR may not accurately reflect actual GFR. Performed By: #### 2 4323-8 ####[facility] FLORIDAA [id number] [place] [address] [place] Glucose [Mass/Vol] 208 mg/dL High 74-99 [facility] Comment on above: Order Comment: Lay barkley Type: BLOOD SPECIMENOrdering Facility: [facility] Address: [address] [place] [address] Result Comment: The [place] Diabetes Association (ADA) provides guidance for cutoff values for fasting glucose and random glucose. The ADA defines fasting as no caloric intake for at least 8 hours. Fasting plasma glucose results between 100 to 125 mg/dL indicate increased risk for diabetes (prediabetes).Fasting plasma glucose results greater than or equal to 126 mg/dL meet the criteria for diagnosis of diabetes. In the absence of unequivocal hyperglycemia, results should be confirmed by repeat testing. In a patient with classic symptoms of hyperglycemia or hyperglycemic crisis, random plasma glucose results greater than or equal to 200 mg/dL meet the criteria for diagnosis of diabetes.Reference: Standards of Medical Care in Diabetes 2016, [place] [employer] Association. Diabetes Care. 2016.39(Suppl 1). Performed By: #### 2 4323-8 ####[facility] [id number] [place] [address] [place] Potassium [Moles/Vol] 3.0 mmol/L Low 3.7-5.1 [facility] Comment on above: Order Comment: Speci men Type: BLOOD SPECIMENOrdering Facility: [facility] Address: [address] [place] [address] Performed By: #### 2 4323-8 ####[facility] HOSPITALCRISTOFERLIA [id number] [place] [address] [place] Protein [Mass/Vol] 6.1 g/dL Low 6.3-8.0 [facility] Comment on above: Order Comment: Speci men Type: BLOOD SPECIMENOrdering Facility: [facility] Address: [address] [place] [address] Performed By: #### 2 4323-8 ####[facility] HOSPITALCRISTOFERLINorma [id number] [place] [address] [place] Sodium [Moles/Vol] 130 mmol/L Low 136-144 [facility] Comment on above: Order Comment: Speci men Type: BLOOD SPECIMENOrdering Facility: [facility] Address: [address] [place] [address] Performed By: #### 2 4323-8 ####[facility] HOSPITALCRISTOFERLINorma [id number] [place] [address] [place] Urea nitrogen [Mass/Vol] 26 mg/dL High 9-24 [facility] Comment on above: Order Comment: Speci men Type: BLOOD SPECIMENOrdering Facility: [facility] Address: [address] [place] [address] Performed By: #### 2 4323-8 ####[facility] HOSPITALNCLIA [id number] [place] [address] [place] HbA1c (Bld)on 08-04-2023 Average glucose Estimated from glycated hemoglobin (Bld) [Mass/Vol] 117 mg/dL Normal [facility] Comment on above: Order Comment: Lay barkley Type: BLOOD SPECIMENOrdering Facility: [facility] Address: [address] [place] [address] Result Comment: eAG: (Estimated average glucose) is a calculated value from HgbA1c and is architectural representative of the average blood glucose level in the last 2-3 month period. Performed By: #### 5 5454-3 ####[facility] LABCLIA [id number] [place] [address] [place] [facility] HbA1c (Bld) [Mass fraction] 5.7 % High 4.3-5.6 [facility] Comment on above: Order Comment: Lay barkley Type: BLOOD SPECIMENOrdering Facility: [facility] Address: [address] [place] [address] Result Comment: [place] Diabetes Association guidelines indicate that patients with HgbA1c in the range 5.7-6.4% are at increased risk for development of diabetes, and intervention by lifestyle modification may be beneficial. HgbA1c greater or equal to 6.5% is considered diagnostic of diabetes. Performed By: #### 5 5454-3 ####[facility] LABCLIA [id number] [address] [place] PT panel Coag (PPP)on 2023 INR Coag (PPP) [Relative time] 1.1 {INR} Normal 0.9-1.3 [facility] Comment on above: Order Comment: Lay barkley Type: BLOOD SPECIMENOrdering Facility: [facility] Address: [address] [place] [address] Result Comment: Sheila min K Antagonist (VKA) Therapeutic Range: INR 2 to 3 (Target INR of 2.5)Note: For patients treated with VKA drugs, such as warfarin, the [place] [employer] 2012 Guideline recommends a therapeutic INR range of 2 to 3 (target INR of 2.5). This recommendation includes high-risk patients with antiphospholipid syndrome with previous arterial or venous thromboembolism, current-generation mechanical or bioprosthetic aortic heart valve replacement.Note: Patients with mechanical aortic valve replacement and additional risk factors for thromboembolic events (atrial fibrillation, previous thromboembolism, LV dysfunction, hypercoagulable conditions) or an older generation mechanical AVR (i.e., ball in-Cage) or any mechanical MVR should have a INR therapeutic range of 2.5 to 3.5 (target INR of 3).Linh ELIZALDE, et al. Chest 2012, 141:7S-47SNishgisell RA, et al. [facility] 2017, 70: 252-289 Performed By: #### 3 4528-0 ####[facility] [id number] [place] [address] [place] PT Coag (PPP) [Time] 11.4 s Normal <13.1 [facility] Comment on above: Order Comment: Speci men Type: BLOOD SPECIMENOrdering Facility: [facility] Address: [address] [place] [address] Performed By: #### 3 4528-0 ####[facility] [id number] [place] [address] [place] CNPNon 07-31-2023 CNPN Normal [facility] Order Reconciliationon 11-02 Order Reconciliation Page 1 Discharge Reconciliation Document Reconciliation Type: Discharge requested on behalf of Jarrett Martinez (Physician) done by Jarrett Martinez) Discharge - Reconciliation: 02-Nov-2020 12:41 by: Jarrett Martinez) Home Medications EnteredHOME MEDICATIONS AT DISCHARGE DateReconciliation Comment/ Additional Information losartan 50 mg oral tablet 1 tab(s) orally once a day 31-Oct-2020 08:37 losartan 50 mg oral tablet 1 tab(s) orally once a day 31-Oct-2020 08:37 losartan 50 mg oral tablet is continued as losartan 50 mg oral tablet Current OrdersDateHOME MEDICATIONS AT DISCHARGE DateReconciliation Comment/ Additional Information Artificial Tears (Preservative Free) SolutionDOSE = 1 drop(s) Right Eye Every 10 MinutesStop After 4 Doses 31-Oct-2020 14:34 Artificial Tears (Preservative Free) is not required Ketorolac 0.5% Ophthalmic. Solution (ACULAR)DOSE = 1 drop(s) Right Eye Every 10 MinutesStop After 4 Doses 31-Oct-2020 14:34 Ketorolac 0.5% Ophthalmic. is not required Lactated Ringers Infusion IV Bag Volume = 1,000 mL Run at: 30 mL/hr IntraVenous 02-Nov-2020 07:54 Lactated Ringers Infusion is not required Lidocaine 1% - Phenylephrine 1.5% Intravitreal SolutionDOSE = 2 mL Intravitreal OnceClinician Notes: To be administered by surgeon 31-Oct-2020 14:34 Lidocaine 1% - Phenylephrine 1.5% Intravitreal is not required Midazolam Injectable (VERSED)DOSE = 1 mg IntraVenous Push Once 02-Nov-2020 07:54 Midazolam Injectable is not required Moxifloxacin 0.5% Ophthalmic. Solution (VIGAMOX)DOSE = 1 mL Right Eye OnceClinician Notes: To be administered by surgeon 31-Oct-2020 14:34 Moxifloxacin 0.5% Ophthalmic. is not required Phenylephrine 10% - Tropicamide 1% Ophthalmic Solution (MYDRIATIC COCKTAIL)DOSE = 1 drop(s) Right Eye Every 10 MinutesStop After 4 Doses 31-Oct-2020 14:34 Phenylephrine 10% - Tropicamide 1% Ophthalmic is not required Povidone Iodine 5% Ophthalmic. Solution (BETADINE)DOSE = 2 drop(s) Right Eye OnceClinician Notes: Prep around operative eye and drop into eye 31-Oct-2020 14:34 Povidone Iodine 5% Ophthalmic. is not required Tetracaine 0.5% Ophthalmic. SolutionDOSE = 1 drop(s) Right Eye Once 31-Oct-2020 14:34 Tetracaine 0.5% Ophthalmic. is not required Home Medications Added During Discharge Reconciliation Additional Patient Instructions Follow printed discharge instructions Discharge Discharge Diagnosis< H25.811 Combined forms of age-related cataract of right eye Discharge Provider, Jarrett Martinez Discharge Disposition : .Home Condition at Discharge: Satisfactory Discharge Communication Instructions for Nursing Only: Remove IV prior to discharge from hospital. Do not remove any midline, if present, without an order from the provider. Discharge Instructions - PHR After your discharge from the hospital, two Summary of Care Documents will be available online in your Personal Health Record (PHR). 1.Consolidated-Clinical Document Architecture (C-CDA) Patient Discharge Summary This document is a summary of your hospital stay to be kept for your reference.2.C-CDA Visit Summary This document is a summary of your hospital stay to be shared with your follow-up providers (doctor, motel manager, physical therapist, etc.). Post Procedure Discharge Criteria Criteria: Easily arousable / responding appropriately; Significant complications are absent; SpO2 = or > 92%, or if SpO2 < 92%, maintains within 2% of baseline; Vital signs +/- 20% of preprocedure status; Ambulates without dizziness / age appropriate activity and ambulatory status returns to pre-procedure baseline. All Active Home Medications at time of Discharge Reconciliation: 02-Nov-2020 12:41 Additional Patient Instructions Follow printed discharge instructions Discharge Discharge Diagnosis< H25.811 Combined forms of age-related cataract of right eye Discharge Provider, Jarrett Martinez Discharge Disposition : .Home Condition at Discharge: Satisfactory Discharge Communication Instructions for Nursing Only: Remove IV prior to discharge from hospital. Do not remove any midline, if present, without an order from the provider. Discharge Instructions - PHR After your discharge from the hospital, two Summary of Care Documents will be available online in your Personal Health Record (PHR). 1.Consolidated-Clinical Document Architecture (C-CDA) Patient Discharge Summary This document is a summary of your hospital stay to be kept for your reference.2.C-CDA Visit Summary This document is a summary of your hospital stay to be shared with your follow-up providers (doctor, motel manager, physical therapist, etc.). losartan 50 mg oral tablet 1 tab(s) orally once a day Post Procedure Discharge Criteria Criteria: Easily arousable / responding appropriately; Significant complications are absent; SpO2 = or > 92%, or if SpO2 < 92%, maintains within 2% of baseline; Vital signs +/- 20% of preprocedure status; (more content not included)... [facility] Preop Checkliston 11-02-2020 Preop Checklist Preop Checklist: Preop Checklist: Arrival [id number] Arrival Time12:15 Temperature C37 degrees C Temperature F98.6 degrees F Heart Rate75 beats per minute Respiratory Rate16 breath per minute Blood Pressure Lqzpjvge397 mm/Hg Blood Pressure Vybvmkicz46 mm/Hg NPO [id number] 19:00 ID Band Onyes Allergy Bandyes Consent Signedyes H&P Completeyes Anesthesia Assessment Completedyes EKG Performednot ordered Chest X-Ray Performednot ordered HCG Urine TestN/A Chlorhexadine Bath Givennot applicable Nasal Antiseptic Appliednot applicable Hair Washednot applicable Soap and water bath with hair shampoo the night before surgerynot applicable Hat placed on prior to transportnot applicable SCD's Appliednot applicable ZACK Hose Appliednot ordered Denturesnot applicable Prostheticsnot applicable Hearing Aidsnot applicable Valuables Securednot applicable Glasses / Contactsnot applicable Bowel Prepno Cardiovascular Assessment: Apicalregular Extremitieswarm Respiratory Assessment: Respirationsunlabored Air Exchangeequal, good Breath Soundsclear Neurological Assessment: Level of Consciousnessalert Mobilitymoves all extremities Able to Express Selfyes Age Appropriateyes Emotional Statuscalm Skin Assessment: Skin Site(s) with Current Compromisenone Preop Education: Surgical Site Infection Preventionyes Pain Scales and Managementyes Language / Communication: Language / CommunicationEnglish Electronic Signatures: Mary Phelan (DOC) (Signed 02-Nov-2020 12:46) Authored: Preop Checklist Last Updated: 02-Nov-2020 12:46 by Mary Phelan (DOC) Normal [facility] CORONAVIRUS 2019, SCREEN ASY MPTOMATICon 10-31-2020 SARS-CoV-2 (COVID-19) RNA ML+probe Ql (Unsp spec) Not detected Normal Not Detected [facility] Comment on above: Result Comment: . This assay is designed to detect SARS-CoV-2 based on replication of specific regions of the RNA from the SARS-CoV-2 virus. A Not Detected result does not preclude 2019-nCoV infection since the adequacy of sample collection and/or low viral burden may result in presence of viral nucleic acids below the clinical sensitivity of this test method. Fact sheet for providers: https://www.fda.gov/media/113345/download Fact sheet for patients: https://www.fda.gov/media/772836/download This test has received FDA Emergency Use Authorization [EUA] and has been verified by [facility] ([facility]). This test is only authorized for the duration of time that circumstances exist to justify the authorization of the emergency use of in vitro diagnostic tests for the detection of SARS-CoV-2 virus and/or diagnosis of COVID-19 infection under section 564(b)(1) of the Act, 21 U.S.C. 360bbb-3(b)(1), unless the authorization is terminated or revoked sooner. [facility] is certified under CLIA-88 as qualified to perform high complexity testing. Testing is performed in the [facility] laboratories [place] [address] [place] [address]. Performed By: #### C OVSC #### [facility] [address] [place] [address] Covid 19 Resultson 1 SARS-CoV-2 (COVID-19) RNA ML+probe Ql (Unsp spec) NEGATIVE COVID-19 Test Coronaviruses are common world-wide and are the cause of many common colds. SARS-COV2 is a new coronavirus that began circulating worldwide in 2019 so we are calling it COVID-19. It has been estimated that four out of five patients with COVID-19 will recover at home without the need for medical attention. Symptoms of COVID-19 may include cough, fever, shortness of breath, loss of taste or smell and other flu-like symptoms including chills, sore muscles, sore throat, and headache. Severe illness is more common in older people and people with other health problems such as high blood pressure, obesity, and immune system problems. If the test is positive, you have COVID-19. You will be contacted by the ordering physicians office and instructed to remain on home isolation, in accordance with CDC guidelines. You may also be contacted by the [facility] to see if any of your close contacts may have been exposed to the virus and need to quarantine. If the test is negative, you likely do not have COVID-19 at this time, but you still may have a different illness that can spread to other people (like Influenza, or the Flu) and could still be at risk for getting COVID-19. We recommend that you stay away from other people to limit the spread of illness until your symptoms are improving and you are fever-free for 24 hours without the use of fever lowering medications such as acetaminophen or ibuprofen. No test is 100% accurate so if you are still concerned you may have COVID-19, talk to your doctor about the need to continue to stay away from others. Medicines Unless your provider told you not to use the following: Acetaminophen (Tylenol and others) is generally safe. Anti-inflammatory medications, such as Ibuprofen (Advil or Motrin) or Naproxen (Aleve) can also be used. Vthn-ybw-qhtmsrx cough and cold medicines can be used according to the instructions on the package. Some vppx-xcu-lkedeam medicines also contain acetaminophen. Make sure you are not taking more than your recommended dose. For those not hospitalized, there is no specific treatment available for this illness. Antibiotics do not treat Coronaviruses. Follow-Up Follow up with your doctor by scheduling a virtual visit or consider follow-up at one of our urgent care fever clinics. If you are having difficulty breathing, or are very weak and having difficulty standing, this is a medical emergency. Call 911 or have someone take you to the nearest emergency room immediately. If possible, wear a facemask. Additional guidance from the CDC for patients who tested POSITIVE for COVID-19 How to isolate: Isolate yourself in a specific room at home and limit your contact with others. Use a separate bathroom from other members of the household, when possible. Leave home only to get essential medical care. Do not go to work, school or public areas. Avoid using public transportation, ride-sharing, or taxis. Restrict contact with pets and other animals. If you must care for your pet or be around animals while you are sick, wash your hands before and after your interaction and wear a facemask. Make sure that shared spaces in the home have good airflow, such as by an air conditioner or an opened window, weather permitting. Personal Hygiene Procedures: Wear a face mask when in the same room as other people or pets. If a face mask interferes with your breathing, others should wear a mask when sharing space with you. Frequent hand-washing: wash your hands with soap and water for at least 20 seconds. If soap and water are not available, use alcohol-based hand activity aide. Avoid touching your eyes, nose, and mouth with unwashed hands. Household Hygiene Procedures: Avoid sharing personal household items such as dishes, glassware, cups, eating utensils, towels or bedding with other people or pets in your home. After use, these items should be washed with soap and hot water. Disinfect all high-touch surfaces every day with antibacterial cleaning solutions such as Lysol wipes, bleach, cleansers, etc. High-touch surfaces include tabletops, doorknobs, bathroom fixtures, toilets, phones, keyboards, tablets and bedside tables. Immediately clean any surfaces that may have blood, poop or body fluids on them, using antibacterial cleaning solutions such as Lysol wipes, bleach, cleansers, etc. If clothing or bedding come into contact with blood, poop or body fluids, they should be washed immediately. Follow the directions on the laundry detergent and clothing labels but hot water is recommended when possible. Stopping home isolation precautions: If possible, consult your doctor before stopping home isolation precautions. According to the CDC, you can discontinue home isolation precautions when you have met both of these criteria: Your fever and respiratory symptoms have been gone for 24 juan (more content not included)... 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 (procedure may be cancelled if no concrete mixer truck driver), center location, insurance information Prep Instructions Reviewedyes Instructed to Have No Fluids Aftermidnight Stated Reason for Admissioneye surgery Primary Contact Name and NumberFaye Patient Belongingsremains with patient Patient Belongings Remaining with Patientclothing Medications Brought to Hospitalno General Health: Weight in kg99.8 kilogram(s) Weight in [id number] pound(s) Weight Methodactual (measured) Scale Typestanding Height in feet5 feet Height in [id number] inch(es) Height in cm180.3 centimeter(s) Height Methodstated BMI (kg/m2)30.7 square meter Patient or Family Member Reaction to Anesthesiano previous reaction; no previous family member reaction Relationship/Environ: Resource/Environmental Concernsnone Substance: Current or Former Substance Use never: Cigarette/Tobacco, e-Cigarette/Vaping, Alcohol, Street Drugs Risk Screens: COVID-19 Screening Completedno exposure or symptoms Advance Directive/DNRyes Advance Directive typeLiving Will Living Will AvailabilityLiving Will not available now During the past month, have you often been bothered by feeling down, depressed or hopelessno During the past month, have you often had little interest or pleasure in doing thingsno Have you had any thoughts of harming yourselfno Have you had any thoughts of harming anyone elseno Are you or have you been threatened or abused physically,emotionally or sexually abused by anyoneno Do you feel UNSAFE going back to the place you are livingno Patient is Able to be Assessed for Learningyes Factors Influencing Readiness to Learnanxiety Factors that Impact Ability to Learnnone Devices/Methods Used to Communicatenone Learning Preferencesverbal instruction Cultural Considerationsnone Developmental Considerationsnone Bahai Considerationsnone Other learner availableno Falls RiskPatient location auto qualifies him/her for HIGH RISK. 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 History of hernia repair: Catalog Name: Other specified postprocedural states History of Sam fundoplication: Catalog Name: Other specified postprocedural states Electronic Signatures: Mary Phelan) (Signed 02-Nov-2020 12:49) Authored: Initial Info, General Health, Relationship/Environ, Risk Screens, Additional Information Ellen Booker) (Signed 31-Oct-2020 08:40) Authored: Initial Info, General Health, Substance, Risk Screens, Additional Information Last Updated: 02-Nov-2020 12:49 by Mary Phelan) [facility] CORONAVIRUS 2019, SCREEN ASY MPTOMATICon 10-30-2020 Lab Specimen Source Nasal, Nasopharyngeal Normal [facility] Comment on above: Performed By: #### C OVSC #### [facility] [address] [place] [address] Vital Signs Date Time Vital Sign Value Performing Clinician Facility 03-26-2024 08:36-0400 Body mass index (BMI) [Ratio] 23.95 kg/m2 Nurse Main Work Phone: [facility] 03-26-2024 08:36-0400 Body temperature 97.81 [degF] Nurse Main Work Phone: [facility] 03-26-2024 08:36-0400 Body weight 75.7 kg Nurse Main Work Phone: [facility] Comment on above: shoes on 03-26-2024 08:36-0400 Diastolic blood pressure 83 mm[Hg] Nurse Main Work Phone: [facility] 03-26-2024 08:36-0400 Heart rate 63 /min Nurse Main Work Phone: [facility] 03-26-2024 08:36-0400 Respiratory rate 16 /min Nurse Main Work Phone: [facility] 03-26-2024 08:36-0400 SaO2% (BldA) [Mass fraction] 99 % Nurse Main Work Phone: [facility] Comment on above: RA 03-26-2024 08:36-0400 Systolic blood pressure 154 mm[Hg] Nurse Main Work Phone: [facility] 03-18-2024 11:07-0400 Body temperature 97.7 [degF] Lab/Port Wstr Work Phone: [facility] 03-18-2024 11:07-0400 Diastolic blood pressure 93 mm[Hg] Lab/Port Wstr Work Phone: [facility] 03-18-2024 11:07-0400 Heart rate 65 /min Lab/Port Wstr Work Phone: [facility] 03-18-2024 11:07-0400 Respiratory rate 18 /min Lab/Port Wstr Work Phone: [facility] 03-18-2024 11:07-0400 SaO2% (BldA) [Mass fraction] 99 % Lab/Port Wstr Work Phone: [facility] 03-18-2024 11:07-0400 Systolic blood pressure 148 mm[Hg] Lab/Port Wstr Work Phone: [facility] 03-16-2024 08:02-0400 Body temperature 97.5 [degF] Treatment Wstr Work Phone: [facility] 03-16-2024 08:02-0400 Diastolic blood pressure 92 mm[Hg] Treatment Wstr Work Phone: [facility] 03-16-2024 08:02-0400 Heart rate 66 /min Treatment Wstr Work Phone: [facility] 03-16-2024 08:02-0400 SaO2% (BldA) [Mass fraction] 98 % Treatment Wstr Work Phone: [facility] 03-16-2024 08:02-0400 Systolic blood pressure 148 mm[Hg] Treatment Wstr Work Phone: [facility] 03-15-2024 11:31-0400 Body mass index (BMI) [Ratio] 23.96 kg/m2 Nichole Wyman OPEN HEARTH STOCKYARD SUPERVISOR.SAFETY DEPOSIT SUPERVISOR Work Phone: [facility] 03-15-2024 11:31-0400 Body temperature 97.5 [degF] Nichole Wyman OPEN HEARTH STOCKYARD SUPERVISOR.SAFETY DEPOSIT SUPERVISOR Work Phone: [facility] 03-15-2024 11:31-0400 Body weight 75.75 kg Nichole Wyman OPEN HEARTH STOCKYARD SUPERVISOR.SAFETY DEPOSIT SUPERVISOR Work Phone: [facility] 03-15-2024 11:31-0400 Diastolic blood pressure 95 mm[Hg] Nichole Wyman OPEN HEARTH STOCKYARD SUPERVISOR.SAFETY DEPOSIT SUPERVISOR Work Phone: [facility] 03-15-2024 11:31-0400 Heart rate 72 /min Nichole Wyman OPEN HEARTH STOCKYARD SUPERVISOR.SAFETY DEPOSIT SUPERVISOR Work Phone: [facility] 03-15-2024 11:31-0400 SaO2% (BldA) [Mass fraction] 99 % Nichole Wyman OPEN HEARTH STOCKYARD SUPERVISOR.SAFETY DEPOSIT SUPERVISOR Work Phone: [facility] 03-15-2024 11:31-0400 Systolic blood pressure 151 mm[Hg] Nichole Wyman SAFETY DEPOSIT SUPERVISOR Work Phone: [facility] 03-15-2024 11:00-0400 Body mass index (BMI) [Ratio] 24.03 kg/m2 Lab/Port Wstr Work Phone: [facility] 03-15-2024 11:00-0400 Body weight 75.98 kg Lab/Port Wstr Work Phone: [facility] 03-04-2024 12:00-0400 Body temperature 97.9 [degF] Lab/Port Wstr Work Phone: [facility] 03-04-2024 12:00-0400 Diastolic blood pressure 80 mm[Hg] Lab/Port Wstr Work Phone: [facility] 03-04-2024 12:00-0400 Heart rate 63 /min Lab/Port Wstr Work Phone: [facility] 03-04-2024 12:00-0400 Systolic blood pressure 148 mm[Hg] Lab/Port Wstr Work Phone: [facility] 03-02-2024 11:08-0400 Diastolic blood pressure 84 mm[Hg] Treatment Wstr Work Phone: [facility] 03-02-2024 11:08-0400 Heart rate 62 /min Treatment Wstr Work Phone: [facility] 03-02-2024 11:08-0400 SaO2% (BldA) [Mass fraction] 99 % Treatment Wstr Work Phone: [facility] 03-02-2024 11:08-0400 Systolic blood pressure 136 mm[Hg] Treatment Wstr Work Phone: [facility] 03-01-2024 10:14-0400 Body mass index (BMI) [Ratio] 24.08 kg/m2 Phong Aj DO Work Phone: [facility] 03-01-2024 10:14-0400 Body temperature 98.01 [degF] Phong Colettei DO Work Phone: [facility] 03-01-2024 10:14-0400 Body weight 76.11 kg Phong Masci DO Work Phone: [facility] 03-01-2024 10:14-0400 Diastolic blood pressure 84 mm[Hg] Phong Masci DO Work Phone: [facility] 03-01-2024 10:14-0400 Heart rate 72 /min Phong Masci DO Work Phone: [facility] 03-01-2024 10:14-0400 SaO2% (BldA) [Mass fraction] 98 % Phong Alvarengai DO Work Phone: [facility] 03-01-2024 10:14-0400 Systolic blood pressure 165 mm[Hg] Phong Alvarengai DO Work Phone: [facility] 03-01-2024 10:08-0400 Body mass index (BMI) [Ratio] 24.03 kg/m2 Lab/Port Wstr Work Phone: [facility] 03-01-2024 10:08-0400 Body weight 75.98 kg Lab/Port Wstr Work Phone: [facility] 02-20-2024 08:41-0400 Body mass index (BMI) [Ratio] 24.42 kg/m2 Tobi Nascimento MD Work Phone: [facility] 02-20-2024 08:41-0400 Body temperature 97.59 [degF] Tobi Nascimento MD Work Phone: [facility] 02-20-2024 08:41-0400 Body weight 77.2 kg Tobi Nascimento MD Work Phone: [facility] 02-20-2024 08:41-0400 Diastolic blood pressure 88 mm[Hg] Tobi Nascimento MD Work Phone: [facility] 02-20-2024 08:41-0400 Heart rate 62 /min Tobi Nascimento MD Work Phone: [facility] 02-20-2024 08:41-0400 Respiratory rate 20 /min Tobi Nascimento MD Work Phone: [facility] 02-20-2024 08:41-0400 Systolic blood pressure 168 mm[Hg] Tobi Nascimento MD Work Phone: [facility] 02-19-2024 14:07-0400 Body temperature 98.4 [degF] Lab/Port Wstr Work Phone: [facility] 02-19-2024 14:07-0400 Diastolic blood pressure 85 mm[Hg] Lab/Port Wstr Work Phone: [facility] 02-19-2024 14:07-0400 Heart rate 64 /min Lab/Port Wstr Work Phone: [facility] 02-19-2024 14:07-0400 Respiratory rate 16 /min Lab/Port Wstr Work Phone: [facility] 02-19-2024 14:07-0400 Systolic blood pressure 148 mm[Hg] Lab/Port Wstr Work Phone: [facility] 02-17-2024 09:38-0400 Body mass index (BMI) [Ratio] 24.39 kg/m2 Treatment Wstr Work Phone: [facility] 02-17-2024 09:38-0400 Body temperature 97.9 [degF] Treatment Wstr Work Phone: [facility] 02-17-2024 09:38-0400 Body weight 77.11 kg Treatment Wstr Work Phone: [facility] 02-17-2024 09:38-0400 Diastolic blood pressure 95 mm[Hg] Treatment Wstr Work Phone: [facility] 02-17-2024 09:38-0400 Heart rate 69 /min Treatment Wstr Work Phone: [facility] 02-17-2024 09:38-0400 Systolic blood pressure 158 mm[Hg] Treatment Wstr Work Phone: [facility] 01-29-2024 12:00-0400 Body temperature 97.5 [degF] Lab/Port Wstr Work Phone: [facility] 01-29-2024 12:00-0400 Diastolic blood pressure 95 mm[Hg] Lab/Port Wstr Work Phone: [facility] 01-29-2024 12:00-0400 Heart rate 59 /min Lab/Port Wstr Work Phone: [facility] 01-29-2024 12:00-0400 Systolic blood pressure 163 mm[Hg] Lab/Port Wstr Work Phone: [facility] 01-27-2024 09:56-0400 Body temperature 97.5 [degF] Treatment Wstr Work Phone: [facility] 01-27-2024 09:56-0400 Diastolic blood pressure 94 mm[Hg] Treatment Wstr Work Phone: [facility] 01-27-2024 09:56-0400 Heart rate 61 /min Treatment Wstr Work Phone: [facility] 01-27-2024 09:56-0400 SaO2% (BldA) [Mass fraction] 98 % Treatment Wstr Work Phone: [facility] 01-27-2024 09:56-0400 Systolic blood pressure 169 mm[Hg] Treatment Wstr Work Phone: [facility] 01-26-2024 09:31-0400 Body mass index (BMI) [Ratio] 24.25 kg/m2 Phong Masci DO Work Phone: [facility] 01-26-2024 09:31-0400 Body temperature 97.59 [degF] Phong Alvarengai DO Work Phone: [facility] 01-26-2024 09:31-0400 Body weight 76.66 kg Phong Alvarengai DO Work Phone: [facility] 01-26-2024 09:31-0400 Diastolic blood pressure 88 mm[Hg] Phong Alvarengai DO Work Phone: [facility] 01-26-2024 09:31-0400 Heart rate 67 /min Phong Aj DO Work Phone: [facility] 01-26-2024 09:31-0400 SaO2% (BldA) [Mass fraction] 99 % Phong Aj DO Work Phone: [facility] 01-26-2024 09:31-0400 Systolic blood pressure 142 mm[Hg] Phong Aj DO Work Phone: [facility] 01-26-2024 09:19-0400 Body mass index (BMI) [Ratio] 24.25 kg/m2 Lab/Port Wstr Work Phone: [facility] 01-26-2024 09:19-0400 Body weight 76.66 kg Lab/Port Wstr Work Phone: [facility] 01-16-2024 13:10-0400 Body temperature 98.1 [degF] Lab/Port Wstr Work Phone: [facility] 01-16-2024 13:10-0400 Diastolic blood pressure 88 mm[Hg] Lab/Port Wstr Work Phone: [facility] 01-16-2024 13:10-0400 Heart rate 56 /min Lab/Port Wstr Work Phone: [facility] 01-16-2024 13:10-0400 Respiratory rate 16 /min Lab/Port Wstr Work Phone: [facility] 01-16-2024 13:10-0400 SaO2% (BldA) [Mass fraction] 98 % Lab/Port Wstr Work Phone: [facility] 01-16-2024 13:10-0400 Systolic blood pressure 150 mm[Hg] Lab/Port Wstr Work Phone: [facility] 01-14-2024 09:57-0400 Diastolic blood pressure 82 mm[Hg] Treatment Wstr Work Phone: [facility] 01-14-2024 09:57-0400 Heart rate 63 /min Treatment Wstr Work Phone: [facility] 01-14-2024 09:57-0400 SaO2% (BldA) [Mass fraction] 99 % Treatment Wstr Work Phone: [facility] 01-14-2024 09:57-0400 Systolic blood pressure 142 mm[Hg] Treatment Wstr Work Phone: [facility] 01-13-2024 10:25-0400 Body mass index (BMI) [Ratio] 24.68 kg/m2 Phong Masci DO Work Phone: [facility] 01-13-2024 10:25-0400 Body temperature 98.1 [degF] Phong Masci DO Work Phone: [facility] 01-13-2024 10:25-0400 Body weight 78.02 kg Phong Masci DO Work Phone: [facility] 01-13-2024 10:25-0400 Diastolic blood pressure 82 mm[Hg] Phong Masci DO Work Phone: [facility] 01-13-2024 10:25-0400 Heart rate 69 /min Phong Masci DO Work Phone: [facility] 01-13-2024 10:25-0400 SaO2% (BldA) [Mass fraction] 98 % Phong Masci DO Work Phone: [facility] 01-13-2024 10:25-0400 Systolic blood pressure 142 mm[Hg] Phong Masci DO Work Phone: [facility] 01-06-2024 14:06-0400 Body mass index (BMI) [Ratio] 24.25 kg/m2 Maximiliano Zaragoza MD Work Phone: [facility] 01-06-2024 14:06-0400 Body weight 76.66 kg Maximiliano Zaragoza MD Work Phone: [facility] 01-06-2024 14:06-0400 Diastolic blood pressure 86 mm[Hg] Maximiliano Zaragoza MD Work Phone: [facility] 01-06-2024 14:06-0400 Heart rate 68 /min Maximiliano Zaragoza MD Work Phone: [facility] 01-06-2024 14:06-0400 Respiratory rate 18 /min Maximiliano Zaragoza MD Work Phone: [facility] 01-06-2024 14:06-0400 SaO2% (BldA) [Mass fraction] 98 % Maximiliano Zaragoza MD Work Phone: [facility] 01-06-2024 14:06-0400 Systolic blood pressure 148 mm[Hg] Maximiliano Zaragoza MD Work Phone: [facility] 01-06-2024 12:50-0400 SaO2% (BldA) [Mass fraction] 97 % Delroy Cuevas MD Work Phone: [facility] 01-06-2024 12:40-0400 Diastolic blood pressure 99 mm[Hg] Delroy Cuevas MD Work Phone: [facility] 01-06-2024 12:40-0400 Heart rate 52 /min Delroy Cuevas MD Work Phone: [facility] 01-06-2024 12:40-0400 Respiratory rate 16 /min Delroy Cuevas MD Work Phone: [facility] 01-06-2024 12:40-0400 Systolic blood pressure 166 mm[Hg] Delroy Cuevas MD Work Phone: [facility] 01-06-2024 11:52-0400 Body temperature 97.3 [degF] Delroy Cuevas MD Work Phone: [facility] 01-06-2024 10:15-0400 Body height 177.8 cm Delroy Cuevas MD Work Phone: [facility] 01-06-2024 10:15-0400 Body mass index (BMI) [Ratio] 24.25 kg/m2 Delroy Cuevas MD Work Phone: [facility] 01-06-2024 10:15-0400 Body weight 76.66 kg Delroy Cuevas MD Work Phone: [facility] 01-06-2024 08:33-0400 Body mass index (BMI) [Ratio] 24.36 kg/m2 Tobi Nascimento MD Work Phone: [facility] 01-06-2024 08:33-0400 Body temperature 97.5 [degF] Tobi Nascimento MD Work Phone: [facility] 01-06-2024 08:33-0400 Body weight 77 kg Tobi Nascimento MD Work Phone: [facility] 01-06-2024 08:33-0400 Diastolic blood pressure 89 mm[Hg] Tobi Nascimento MD Work Phone: [facility] 01-06-2024 08:33-0400 Heart rate 66 /min Tobi Nascimento MD Work Phone: [facility] 01-06-2024 08:33-0400 Respiratory rate 18 /min Tobi Nascimento MD Work Phone: [facility] 01-06-2024 08:33-0400 SaO2% (BldA) [Mass fraction] 100 % Tobi Nascimento MD Work Phone: [facility] 01-06-2024 08:33-0400 Systolic blood pressure 149 mm[Hg] Tobi Nascimento MD Work Phone: [facility] 12-30-2023 10:38-0400 Body temperature 97.59 [degF] Treatment Wstr Work Phone: [facility] 12-30-2023 10:38-0400 Diastolic blood pressure 87 mm[Hg] Treatment Wstr Work Phone: [facility] 12-30-2023 10:38-0400 Heart rate 69 /min Treatment Wstr Work Phone: [facility] 12-30-2023 10:38-0400 Respiratory rate 18 /min Treatment Wstr Work Phone: [facility] 12-30-2023 10:38-0400 SaO2% (BldA) [Mass fraction] 98 % Treatment Wstr Work Phone: [facility] 12-30-2023 10:38-0400 Systolic blood pressure 143 mm[Hg] Treatment Wstr Work Phone: [facility] 12-29-2023 08:53-0400 Body mass index (BMI) [Ratio] 24.25 kg/m2 Phong Masci DO Work Phone: [facility] 12-29-2023 08:53-0400 Body temperature 97.5 [degF] Phong Masci DO Work Phone: [facility] 12-29-2023 08:53-0400 Body weight 76.66 kg Phong Masci DO Work Phone: [facility] 12-29-2023 08:53-0400 Diastolic blood pressure 83 mm[Hg] Hpong Masci DO Work Phone: [facility] 12-29-2023 08:53-0400 Heart rate 74 /min Phong Masci DO Work Phone: [facility] 12-29-2023 08:53-0400 SaO2% (BldA) [Mass fraction] 98 % Phong Masci DO Work Phone: [facility] 12-29-2023 08:53-0400 Systolic blood pressure 125 mm[Hg] Phong Masci DO Work Phone: [facility] 12-29-2023 08:29-0400 Body mass index (BMI) [Ratio] 24.25 kg/m2 Lab/Port Wstr Work Phone: [facility] 12-29-2023 08:29-0400 Body weight 76.66 kg Lab/Port Wstr Work Phone: [facility] 12-25-2023 08:03-0400 Body temperature 97.9 [degF] Treatment Wstr Work Phone: [facility] 12-25-2023 08:03-0400 Diastolic blood pressure 90 mm[Hg] Treatment Wstr Work Phone: [facility] 12-25-2023 08:03-0400 Heart rate 67 /min Treatment Wstr Work Phone: [facility] 12-25-2023 08:03-0400 SaO2% (BldA) [Mass fraction] 99 % Treatment Wstr Work Phone: [facility] 12-25-2023 08:03-0400 Systolic blood pressure 156 mm[Hg] Treatment Wstr Work Phone: [facility] 12-18-2023 12:15-0400 Body temperature 97.9 [degF] Treatment Wstr Work Phone: [facility] 12-18-2023 12:15-0400 Diastolic blood pressure 91 mm[Hg] Treatment Wstr Work Phone: [facility] Comment on above: pt stated very anxious to come in today/ no other issues noted 12-18-2023 12:15-0400 Heart rate 63 /min Treatment Wstr Work Phone: [facility] 12-18-2023 12:15-0400 Respiratory rate 20 /min Treatment Wstr Work Phone: [facility] 12-18-2023 12:15-0400 Systolic blood pressure 154 mm[Hg] Treatment Wstr Work Phone: [facility] Comment on above: pt stated very anxious to come in today/ no other issues noted 12-16-2023 08:30-0400 Body mass index (BMI) [Ratio] 24.25 kg/m2 Marlon Dahl MD Work Phone: [facility] 12-16-2023 08:30-0400 Body temperature 98.49 [degF] Marlon Dahl MD Work Phone: [facility] 12-16-2023 08:30-0400 Body weight 76.66 kg Marlon Dahl MD Work Phone: [facility] 12-16-2023 08:30-0400 Diastolic blood pressure 88 mm[Hg] Marlon Dahl MD Work Phone: [facility] 12-16-2023 08:30-0400 Heart rate 92 /min Marlon Dahl MD Work Phone: [facility] 12-16-2023 08:30-0400 SaO2% (BldA) [Mass fraction] 98 % Marlon Dahl MD Work Phone: [facility] 12-16-2023 08:30-0400 Systolic blood pressure 137 mm[Hg] Marlon Dahl MD Work Phone: [facility] 12-16-2023 08:20-0400 Body mass index (BMI) [Ratio] 24.25 kg/m2 Lab/Port Wstr Work Phone: [facility] 12-16-2023 08:20-0400 Body weight 76.66 kg Lab/Port Wstr Work Phone: [facility] 11-20-2023 14:23-0400 Body temperature 98.01 [degF] Lab/Port Wstr Work Phone: [facility] 11-20-2023 14:23-0400 Diastolic blood pressure 91 mm[Hg] Lab/Port Wstr Work Phone: [facility] 11-20-2023 14:23-0400 Heart rate 89 /min Lab/Port Wstr Work Phone: [facility] 11-20-2023 14:23-0400 Respiratory rate 18 /min Lab/Port Wstr Work Phone: [facility] 11-20-2023 14:23-0400 Systolic blood pressure 143 mm[Hg] Lab/Port Wstr Work Phone: [facility] 11-18-2023 15:41-0400 Diastolic blood pressure 74 mm[Hg] Treatment Wstr Work Phone: [facility] 11-18-2023 15:41-0400 Heart rate 78 /min Treatment Wstr Work Phone: [facility] 11-18-2023 15:41-0400 Respiratory rate 16 /min Treatment Wstr Work Phone: [facility] 11-18-2023 15:41-0400 SaO2% (BldA) [Mass fraction] 97 % Treatment Wstr Work Phone: [facility] 11-18-2023 15:41-0400 Systolic blood pressure 118 mm[Hg] Treatment Wstr Work Phone: [facility] 11-18-2023 09:40-0400 Body temperature 97.81 [degF] Phong Masci DO Work Phone: [facility] 11-18-2023 09:40-0400 Diastolic blood pressure 75 mm[Hg] Phong Masci DO Work Phone: [facility] 11-18-2023 09:40-0400 Heart rate 97 /min Phong Masci DO Work Phone: [facility] 11-18-2023 09:40-0400 SaO2% (BldA) [Mass fraction] 98 % Phong [employer] DO Work Phone: [facility] 11-18-2023 09:40-0400 Systolic blood pressure 129 mm[Hg] Phong Masci DO Work Phone: [facility] 11-18-2023 09:24-0400 Body mass index (BMI) [Ratio] 25.7 kg/m2 Lab/Port Wstr Work Phone: [facility] 11-18-2023 09:24-0400 Body weight 78.93 kg Lab/Port Wstr Work Phone: [facility] 11-07-2023 12:01-0400 Body temperature 97.11 [degF] Lab/Port Wstr Work Phone: [facility] 11-07-2023 12:01-0400 Diastolic blood pressure 82 mm[Hg] Lab/Port Wstr Work Phone: [facility] 11-07-2023 12:01-0400 Heart rate 103 /min Lab/Port Wstr Work Phone: [facility] 11-07-2023 12:01-0400 SaO2% (BldA) [Mass fraction] 98 % Lab/Port Wstr Work Phone: [facility] 11-07-2023 12:01-0400 Systolic blood pressure 137 mm[Hg] Lab/Port Wstr Work Phone: [facility] 11-05-2023 08:17-0400 Body temperature 97.7 [degF] Treatment Wstr Work Phone: [facility] 11-05-2023 08:17-0400 Diastolic blood pressure 78 mm[Hg] Treatment Wstr Work Phone: [facility] 11-05-2023 08:17-0400 Heart rate 110 /min Treatment Wstr Work Phone: [facility] 11-05-2023 08:17-0400 SaO2% (BldA) [Mass fraction] 97 % Treatment Wstr Work Phone: [facility] 11-05-2023 08:17-0400 Systolic blood pressure 124 mm[Hg] Treatment Wstr Work Phone: [facility] 11-04-2023 08:43-0400 Body mass index (BMI) [Ratio] 26.33 kg/m2 Nichole Wyman OPEN HEARTH STOCKYARD SUPERVISOR.SAFETY DEPOSIT SUPERVISOR Work Phone: [facility] 11-04-2023 08:43-0400 Body temperature 98.49 [degF] Nichole Wyman OPEN HEARTH STOCKYARD SUPERVISOR.SAFETY DEPOSIT SUPERVISOR Work Phone: [facility] 11-04-2023 08:43-0400 Body weight 80.88 kg Nichole yWman OPEN HEARTH STOCKYARD SUPERVISOR.SAFETY DEPOSIT SUPERVISOR Work Phone: [facility] 11-04-2023 08:43-0400 Diastolic blood pressure 83 mm[Hg] Nichole Wyman OPEN HEARTH STOCKYARD SUPERVISOR.SAFETY DEPOSIT SUPERVISOR Work Phone: [facility] 11-04-2023 08:43-0400 Heart rate 90 /min Nichole Wyman OPEN HEARTH STOCKYARD SUPERVISOR.SAFETY DEPOSIT SUPERVISOR Work Phone: [facility] 11-04-2023 08:43-0400 SaO2% (BldA) [Mass fraction] 97 % Nichole Wyman OPEN HEARTH STOCKYARD SUPERVISOR.SAFETY DEPOSIT SUPERVISOR Work Phone: [facility] 11-04-2023 08:43-0400 Systolic blood pressure 131 mm[Hg] Nichole Wyman APRNRubenSAFETY DEPOSIT SUPERVISOR Work Phone: [facility] 11-04-2023 08:02-0400 Body mass index (BMI) [Ratio] 26.43 kg/m2 Lab/Port Wstr Work Phone: [facility] 11-04-2023 08:02-0400 Body weight 81.19 kg Lab/Port Wstr Work Phone: [facility] 10-23-2023 11:26-0400 Body temperature 97.11 [degF] Lab/Port Wstr Work Phone: [facility] 10-23-2023 11:26-0400 Diastolic blood pressure 83 mm[Hg] Lab/Port Wstr Work Phone: [facility] 10-23-2023 11:26-0400 Heart rate 101 /min Lab/Port Wstr Work Phone: [facility] 10-23-2023 11:26-0400 SaO2% (BldA) [Mass fraction] 97 % Lab/Port Wstr Work Phone: [facility] 10-23-2023 11:26-0400 Systolic blood pressure 146 mm[Hg] Lab/Port Wstr Work Phone: [facility] 10-21-2023 08:31-0400 Body temperature 97.7 [degF] Treatment Wstr Work Phone: [facility] 10-21-2023 08:31-0400 Diastolic blood pressure 79 mm[Hg] Treatment Wstr Work Phone: [facility] 10-21-2023 08:31-0400 Heart rate 99 /min Treatment Wstr Work Phone: [facility] 10-21-2023 08:31-0400 SaO2% (BldA) [Mass fraction] 99 % Treatment Wstr Work Phone: [facility] 10-21-2023 08:31-0400 Systolic blood pressure 134 mm[Hg] Treatment Wstr Work Phone: [facility] 10-20-2023 15:36-0400 Body mass index (BMI) [Ratio] 26.8 kg/m2 Phong Alvarengai DO Work Phone: [facility] 10-20-2023 15:36-0400 Body temperature 98.8 [degF] Phong Masci DO Work Phone: [facility] 10-20-2023 15:36-0400 Body weight 82.33 kg Phong Masci DO Work Phone: [facility] 10-20-2023 15:36-0400 Diastolic blood pressure 76 mm[Hg] Phong Masci DO Work Phone: [facility] 10-20-2023 15:36-0400 Heart rate 105 /min Phong Alvarengai DO Work Phone: [facility] 10-20-2023 15:36-0400 SaO2% (BldA) [Mass fraction] 98 % Phong Alvarengai DO Work Phone: [facility] 10-20-2023 15:36-0400 Systolic blood pressure 120 mm[Hg] Phong Masci DO Work Phone: [facility] 10-09-2023 13:00-0400 Body temperature 97.39 [degF] Lab/Port Wstr Work Phone: [facility] 10-09-2023 13:00-0400 Diastolic blood pressure 80 mm[Hg] Lab/Port Wstr Work Phone: [facility] 10-09-2023 13:00-0400 Heart rate 58 /min Lab/Port Wstr Work Phone: [facility] 10-09-2023 13:00-0400 Systolic blood pressure 145 mm[Hg] Lab/Port Wstr Work Phone: [facility] 10-07-2023 08:18-0400 Body temperature 97.81 [degF] Treatment Wstr Work Phone: [facility] 10-07-2023 08:18-0400 Diastolic blood pressure 86 mm[Hg] Treatment Wstr Work Phone: [facility] 10-07-2023 08:18-0400 Heart rate 106 /min Treatment Wstr Work Phone: [facility] 10-07-2023 08:18-0400 Respiratory rate 18 /min Treatment Wstr Work Phone: [facility] 10-07-2023 08:18-0400 Systolic blood pressure 124 mm[Hg] Treatment Wstr Work Phone: [facility] 10-06-2023 15:22-0400 Body mass index (BMI) [Ratio] 27.32 kg/m2 Phong Masci DO Work Phone: [facility] 10-06-2023 15:22-0400 Body temperature 98.6 [degF] Phong Masci DO Work Phone: [facility] 10-06-2023 15:22-0400 Body weight 83.92 kg Phong Masci DO Work Phone: [facility] 10-06-2023 15:22-0400 Diastolic blood pressure 77 mm[Hg] Phong Masci DO Work Phone: [facility] 10-06-2023 15:22-0400 Heart rate 103 /min Phong Masci DO Work Phone: [facility] 10-06-2023 15:22-0400 SaO2% (BldA) [Mass fraction] 98 % Phong Masci DO Work Phone: [facility] 10-06-2023 15:22-0400 Systolic blood pressure 121 mm[Hg] Phong Masci DO Work Phone: [facility] 10-06-2023 15:11-0400 Body mass index (BMI) [Ratio] 27.32 kg/m2 Lab/Port Wstr Work Phone: [facility] 10-06-2023 15:11-0400 Body weight 83.92 kg Lab/Port Wstr Work Phone: [facility] 09-25-2023 12:00-0400 Body temperature 97.59 [degF] Lab/Port Wstr Work Phone: [facility] 09-25-2023 12:00-0400 Diastolic blood pressure 91 mm[Hg] Lab/Port Wstr Work Phone: [facility] 09-25-2023 12:00-0400 Heart rate 76 /min Lab/Port Wstr Work Phone: [facility] 09-25-2023 12:00-0400 Systolic blood pressure 146 mm[Hg] Lab/Port Wstr Work Phone: [facility] 09-23-2023 08:35-0400 Diastolic blood pressure 100 mm[Hg] Treatment Wstr Work Phone: [facility] 09-23-2023 08:35-0400 Systolic blood pressure 149 mm[Hg] Treatment Wstr Work Phone: [facility] 09-23-2023 08:21-0400 Body temperature 97.59 [degF] Treatment Wstr Work Phone: [facility] 09-23-2023 08:21-0400 Heart rate 86 /min Treatment Wstr Work Phone: [facility] 09-23-2023 08:21-0400 SaO2% (BldA) [Mass fraction] 99 % Treatment Wstr Work Phone: [facility] 09-22-2023 15:41-0400 Body temperature 98.2 [degF] Phong Masci DO Work Phone: [facility] 09-22-2023 15:41-0400 Body weight 86.18 kg Phong Masci DO Work Phone: [facility] 09-22-2023 15:41-0400 Diastolic blood pressure 97 mm[Hg] Phong Masci DO Work Phone: [facility] 09-22-2023 15:41-0400 Heart rate 95 /min Phong Masci DO Work Phone: [facility] 09-22-2023 15:41-0400 SaO2% (BldA) [Mass fraction] 98 % Phong Masci DO Work Phone: [facility] 09-22-2023 15:41-0400 Systolic blood pressure 153 mm[Hg] Phong Aj DO Work Phone: [facility] 09-22-2023 15:32-0400 Body weight 86.18 kg Lab/Port Wstr Work Phone: [facility] 09-11-2023 14:00-0400 Body temperature 97.9 [degF] Lab/Port Wstr Work Phone: [facility] 09-11-2023 14:00-0400 Diastolic blood pressure 80 mm[Hg] Lab/Port Wstr Work Phone: [facility] 09-11-2023 14:00-0400 Heart rate 80 /min Lab/Port Wstr Work Phone: [facility] 09-11-2023 14:00-0400 Systolic blood pressure 137 mm[Hg] Lab/Port Wstr Work Phone: [facility] 09-09-2023 08:09-0400 Body temperature 98.2 [degF] Treatment Wstr Work Phone: [facility] 09-09-2023 08:09-0400 Diastolic blood pressure 97 mm[Hg] Treatment Wstr Work Phone: [facility] 09-09-2023 08:09-0400 Heart rate 85 /min Treatment Wstr Work Phone: [facility] 09-09-2023 08:09-0400 Respiratory rate 16 /min Treatment Wstr Work Phone: [facility] 09-09-2023 08:09-0400 SaO2% (BldA) [Mass fraction] 99 % Treatment Wstr Work Phone: [facility] 09-09-2023 08:09-0400 Systolic blood pressure 152 mm[Hg] Treatment Wstr Work Phone: [facility] 09-08-2023 14:25-0400 Body temperature 98.29 [degF] Phong Alvarengaankit DO Work Phone: [facility] 09-08-2023 14:25-0400 Body weight 87.09 kg Phong Alvarengai DO Work Phone: [facility] 09-08-2023 14:25-0400 Diastolic blood pressure 88 mm[Hg] Phong Alvarengai DO Work Phone: [facility] 09-08-2023 14:25-0400 Heart rate 102 /min Phong Alvarengai DO Work Phone: [facility] 09-08-2023 14:25-0400 SaO2% (BldA) [Mass fraction] 99 % Phong Alvarengai DO Work Phone: [facility] 09-08-2023 14:25-0400 Systolic blood pressure 132 mm[Hg] Phong Alvarengai DO Work Phone: [facility] 09-08-2023 14:16-0400 Body weight 87.32 kg Lab/Port Wstr Work Phone: [facility] 08-28-2023 13:00-0400 Body temperature 98.1 [degF] Lab/Port Wstr Work Phone: [facility] 08-28-2023 13:00-0400 Diastolic blood pressure 97 mm[Hg] Lab/Port Wstr Work Phone: [facility] 08-28-2023 13:00-0400 Heart rate 80 /min Lab/Port Wstr Work Phone: [facility] 08-28-2023 13:00-0400 Systolic blood pressure 147 mm[Hg] Lab/Port Wstr Work Phone: [facility] 08-26-2023 09:54-0400 Body temperature 98.1 [degF] Treatment Wstr Work Phone: [facility] 08-26-2023 09:54-0400 Diastolic blood pressure 99 mm[Hg] Treatment Wstr Work Phone: [facility] 08-26-2023 09:54-0400 Heart rate 82 /min Treatment Wstr Work Phone: [facility] 08-26-2023 09:54-0400 Respiratory rate 18 /min Treatment Wstr Work Phone: [facility] 08-26-2023 09:54-0400 SaO2% (BldA) [Mass fraction] 99 % Treatment Wstr Work Phone: [facility] 08-26-2023 09:54-0400 Systolic blood pressure 160 mm[Hg] Treatment Wstr Work Phone: [facility] 08-18-2023 12:45-0400 Diastolic blood pressure 61 mm[Hg] Bear Bahena MD Work Phone: [facility] 08-18-2023 12:45-0400 Heart rate 86 /min Bear Bahena MD Work Phone: [facility] 08-18-2023 12:45-0400 Respiratory rate 16 /min Bear Bahena MD Work Phone: [facility] 08-18-2023 12:45-0400 SaO2% (BldA) [Mass fraction] 97 % Bear Bahena MD Work Phone: [facility] 08-18-2023 12:45-0400 Systolic blood pressure 145 mm[Hg] Bear Bahena MD Work Phone: [facility] 08-18-2023 07:28-0400 Body temperature 97.81 [degF] Bear Bahena MD Work Phone: [facility] 08-12-2023 08:21-0500 Body height 176.8 cm Phong Colettei DO Work Phone: [facility] 08-12-2023 08:21-0500 Body temperature 97.81 [degF] Phong Masci DO Work Phone: [facility] 08-12-2023 08:21-0500 Body weight 88.91 kg Phong Masci DO Work Phone: [facility] 08-12-2023 08:21-0500 Diastolic blood pressure 92 mm[Hg] Phong Colettei DO Work Phone: [facility] 08-12-2023 08:21-0500 Heart rate 117 /min Phong Colettei DO Work Phone: [facility] 08-12-2023 08:21-0500 SaO2% (BldA) [Mass fraction] 100 % Phong Aj DO Work Phone: [facility] 08-12-2023 08:21-0500 Systolic blood pressure 161 mm[Hg] Phong Aj DO Work Phone: [facility] 08-06-2023 16:20-0500 Diastolic blood pressure 78 mm[Hg] Vickie James MD Work Phone: [facility] 08-06-2023 16:20-0500 Heart rate 72 /min Vickie James MD Work Phone: [facility] 08-06-2023 16:20-0500 Respiratory rate 16 /min Vickie James MD Work Phone: [facility] 08-06-2023 16:20-0500 SaO2% (BldA) [Mass fraction] 98 % Vickie James MD Work Phone: [facility] 08-06-2023 16:20-0500 Systolic blood pressure 136 mm[Hg] Vickie James MD Work Phone: [facility] 08-06-2023 15:31-0500 Body temperature 96.8 [degF] Vickie James MD Work Phone: [facility] 08-06-2023 14:05-0500 Body height 179.1 cm Vickie James MD Work Phone: [facility] 08-06-2023 14:05-0500 Body weight 90.72 kg Vickie James MD Work Phone: [facility] 08-05-2023 13:21-0500 Body height 180.3 cm Tobi Nascimento MD Work Phone: [facility] 08-05-2023 13:21-0500 Body temperature 97.3 [degF] Tobi Nascimento MD Work Phone: [facility] 08-05-2023 13:21-0500 Body weight 88 kg Tobi Nascimento MD Work Phone: [facility] 08-05-2023 13:21-0500 Diastolic blood pressure 71 mm[Hg] Tobi Nascimento MD Work Phone: [facility] 08-05-2023 13:21-0500 Heart rate 107 /min Tobi Nascimento MD Work Phone: [facility] 08-05-2023 13:21-0500 Systolic blood pressure 121 mm[Hg] Tobi Nascimento MD Work Phone: [facility] Encounters Encounter Date Encounter Type Care Provider Facility Start: 03-26-2024 End: 03-27-2024 Patient encounter procedure Maximiliano Zaragoza MD Work Phone: Radiation Oncology Start: 03-26-2024 End: 03-27-2024 Radiation Oncology Note Maximiliano Zaragoza MD Work Phone: Radiation Oncology Comment on above: Simulation Note RTT Injection Start: 03-26-2024 End: 03-26-2024 ambulatory [facility] Facility:[facility] Start: 03-26-2024 End: 03-26-2024 Nursing evaluation of patient and report Nurse Jadyn Main Work Phone: Radiation Oncology Comment on above: Malignant neoplasm o f head of pancreas (HCC) (Primary Dx) Start: 03-26-2024 End: 03-26-2024 ambulatory [facility] Facility:[facility] Start: 03-25-2024 End: 03-25-2024 Telephone encounter Melinda Meza RN Radiation Oncology Start: 03-18-2024 End: 03-18-2024 ambulatory Lab/Port [facility] Work Phone: Hematology/Oncology Comment on above: Malignant neoplasm o f head of pancreas (HCC) (Primary Dx) Start: 03-16-2024 End: 03-16-2024 ambulatory Treatment Rm 1 Sushil [facility] Wstr Work Phone: Hematology/Oncology Comment on above: Malignant neoplasm o f head of pancreas (HCC) (Primary Dx) Start: 03-15-2024 End: 03-15-2024 Telephone encounter Phong Aj DO Work Phone: Hematology/Oncology Comment on above: Results Start: 03-15-2024 End: 03-15-2024 Patient encounter procedure Nichole Wyman SAFETY DEPOSIT SUPERVISOR Work Phone: Hematology/Oncology Start: 03-15-2024 End: 03-15-2024 ambulatory Lab/Port [facility] Work Phone: Hematology/Oncology Comment on above: Malignant neoplasm o f head of pancreas (HCC); Pancreatic adenocarcinoma (HCC) Malignant neoplasm o f head of pancreas (HCC) (Primary Dx) Start: 03-04-2024 End: 03-04-2024 ambulatory Lab/Port S[facility] Work Phone: Hematology/Oncology Comment on above: Malignant neoplasm o f head of pancreas (HCC) (Primary Dx) Start: 03-02-2024 End: 03-02-2024 ambulatory Treatment Rm 13 Sushil [facility] Wstr Work Phone: Hematology/Oncology Comment on above: Malignant neoplasm o f head of pancreas (HCC) (Primary Dx) Start: 03-01-2024 End: 03-01-2024 Patient encounter procedure Phong Aj DO Work Phone: Hematology/Oncology Start: 03-01-2024 End: 03-01-2024 ambulatory Lab/Port [facility] Work Phone: Hematology/Oncology Comment on above: Malignant neoplasm o f head of pancreas (HCC) (Primary Dx); Pancreatic adenocarcinoma (HCC) Malignant neoplasm o f head of pancreas (HCC) (Primary Dx) Start: 02-24-2024 End: 02-24-2024 Telephone encounter Tobi Nascimento MD Work Phone: General Surgery Comment on above: Results Start: 02-20-2024 End: 02-20-2024 Refill Phong Aj DO Work Phone: Hematology/Oncology Comment on above: Refill Request Malignant neoplasm o f head of pancreas (HCC) (Primary Dx) Start: 02-19-2024 End: 02-19-2024 ambulatory Lab/Port [facility] Work Phone: Hematology/Oncology Comment on above: Malignant neoplasm o f head of pancreas (HCC) (Primary Dx) Start: 02-17-2024 End: 02-17-2024 Transcribe Orders Delroy Trotter MD Work Phone: [facility] Comment on above: Hyperlipidemia assoc iated with type 2 diabetes mellitus (HCC) (HCC) (Primary Dx); Diabetes mellitus with multiple complications (HCC) Refill Request Malignant neoplasm o f head of pancreas (HCC) (Primary Dx); Pancreatic adenocarcinoma (HCC); Diabetes mellitus with multiple complications (HCC); Hyperlipidemia associated with type 2 diabetes mellitus (HCC) (HCC) Start: 02-06-2024 End: 02-06-2024 ambulatory Lab/Port [facility] Work Phone: Hematology/Oncology Comment on above: Malignant neoplasm o f head of pancreas (HCC) (Primary Dx) Start: 02-06-2024 End: 02-06-2024 Subsequent hospital visit by physician [facility] (I-Stat) Work Phone: Cat Scan Comment on above: Malignant neoplasm o f head of pancreas (HCC) [C25.0] Start: 02-04-2024 End: 02-05-2024 Telephone encounter Phong Aj DO Work Phone: Hematology/Oncology Comment on above: Appointment Start: 01-29-2024 End: 01-29-2024 ambulatory Lab/Port [facility] Work Phone: Hematology/Oncology Comment on above: Malignant neoplasm o f head of pancreas (HCC) (Primary Dx) Start: 01-27-2024 End: 01-27-2024 ambulatory Treatment Rm 7 Sushil [facility] Work Phone: Hematology/Oncology Comment on above: Malignant neoplasm o f head of pancreas (HCC) (Primary Dx) Start: 01-26-2024 End: 01-26-2024 Patient encounter procedure Phong Aj DO Work Phone: Hematology/Oncology Start: 01-26-2024 End: 01-26-2024 ambulatory Lab/Port [facility] Work Phone: Hematology/Oncology Comment on above: Malignant neoplasm o f head of pancreas (HCC); Pancreatic adenocarcinoma (HCC); Sepsis with acute renal failure without septic shock, due to unspecified organism, unspecified acute renal failure type (HCC) Malignant neoplasm o f head of pancreas (HCC) (Primary Dx) Start: 01-21-2024 Telephone encounter Susan Coffman prashanth Work Phone: Hematology/Oncology Comment on above: Appointment Start: 01-16-2024 End: 01-16-2024 ambulatory Lab/Port [facility] Work Phone: Hematology/Oncology Comment on above: Malignant neoplasm o f head of pancreas (HCC) (Primary Dx) Start: 01-15-2024 Telephone encounter Tobi gandhi MD Work Phone: General Surgery Comment on above: Patient Update Start: 01-14-2024 Chart abstracting Adrian Torres RN Hematology/Oncology Comment on above: Research (Consent CA [id number]) Start: 01-14-2024 End: 01-14-2024 ambulatory Treatment Rm 10 Sushil [facility] Work Phone: Hematology/Oncology Comment on above: Malignant neoplasm o f head of pancreas (HCC) (Primary Dx); Anemia, unspecified type Start: 01-13-2024 End: 01-13-2024 Patient encounter procedure Phong Aj DO Work Phone: Hematology/Oncology Start: 01-13-2024 End: 01-13-2024 ambulatory Lab/Port [facility] Work Phone: Hematology/Oncology Comment on above: Malignant neoplasm o f head of pancreas (HCC); Pancreatic adenocarcinoma (HCC); Sepsis with acute renal failure without septic shock, due to unspecified organism, unspecified acute renal failure type (HCC) Malignant neoplasm o f head of pancreas (HCC) (Primary Dx); Abnormal CT of liver; Anemia, unspecified type Start: 01-06-2024 End: 01-06-2024 Subsequent hospital visit by physician Delroy Cuevas MD Work Phone: Gastroenterology Comment on above: 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.9] Start: 01-06-2024 End: 01-06-2024 ambulatory TOBI NASCIMENTO Facility:[facility] Start: 01-06-2024 End: 01-06-2024 Patient encounter procedure Tobi Nascimento MD Work Phone: General Surgery Comment on above: Malignant neoplasm o f head of pancreas (HCC) (Primary Dx) Start: 12-30-2023 Telephone encounter Alethea Catherine Gastroenterology Comment on above: Appointment Confirma tion Start: 12-30-2023 End: 12-30-2023 ambulatory DELROY TROTTER Hematology/Oncology Comment on above: Malignant neoplasm o f head of pancreas (HCC) (Primary Dx) Start: 12-30-2023 End: 12-30-2023 Patient encounter procedure Treatment Rm 16 Sushil [email or web address] Work Phone: Hematology/Oncology Start: 12-29-2023 Telephone encounter Phong schmidt DO Work Phone: Hematology/Oncology Comment on above: Results Start: 12-29-2023 End: 12-29-2023 Patient encounter procedure Phong Aj DO Work Phone: Hematology/Oncology Start: 12-29-2023 End: 12-29-2023 ambulatory Lab/Port [email or web address] Work Phone: Hematology/Oncology Comment on above: Malignant neoplasm o f head of pancreas (HCC); Pancreatic adenocarcinoma (HCC); Sepsis with acute renal failure without septic shock, due to unspecified organism, unspecified acute renal failure type (HCC) Malignant neoplasm o f head of pancreas (HCC) (Primary Dx); Biliary obstruction Start: 12-25-2023 End: 12-25-2023 ambulatory Treatment Rm 2 Sushil [facility] [email or web address] Work Phone: Hematology/Oncology Comment on above: Malignant neoplasm o f head of pancreas (HCC) (Primary Dx) Start: 12-25-2023 End: 12-25-2023 Subsequent hospital visit by physician Ct [facility] (I-Stat) Work Phone: Cat Scan Comment on above: Malignant neoplasm o f head of pancreas (HCC) [C25.0] Start: 12-24-2023 Telephone encounter Marlon verdugo MD Work Phone: Hematology/Oncology Comment on above: hydration Start: 12-18-2023 End: 12-18-2023 ambulatory Treatment Rm 11 Sushil [facility] Work Phone: Hematology/Oncology Comment on above: Malignant neoplasm o f head of pancreas (HCC) (Primary Dx) Start: 12-16-2023 End: 12-16-2023 ambulatory Lab/Port Sushil [facility] Work Phone: Hematology/Oncology Comment on above: Malignant neoplasm o f head of pancreas (HCC) (Primary Dx); Pancreatic adenocarcinoma (HCC); Sepsis with acute renal failure without septic shock, due to unspecified organism, unspecified acute renal failure type (HCC) Malignant neoplasm o f head of pancreas (HCC) (Primary Dx) Refill Request Start: 12-16-2023 Refill Phong Llanos O Work Phone: Hematology/Oncology Comment on above: Refill Request Start: 12-16-2023 End: 12-16-2023 Patient encounter procedure Marlon Dahl MD Work Phone: Hematology/Oncology Start: 12-15-2023 Telephone encounter Gretchen Del Castillo RN He matology/Oncology Comment on above: Global Clinical Leader - O ther (Hospital Discharge ) Start: 11-27-2023 End: 12-12-2023 [facility] Start: 11-27-2023 Telephone encounter Marylou alvarado RN Work Phone: Hematology/Oncology Comment on above: Care Coordination (F ever) Start: 11-26-2023 End: 11-26-2023 ambulatory [facility] Facility:[facility] Start: 11-20-2023 End: 11-20-2023 ambulatory Lab/Port S[place] [facility] Work Phone: Hematology/Oncology Comment on above: Malignant neoplasm o f head of pancreas (HCC) (Primary Dx) Start: 11-18-2023 End: 11-18-2023 Orders Only Delroy Trotter MD Work Phone: Hematology/Oncology Comment on above: Primary hypertension (Primary Dx); Essential hypertension; Pancreatic adenocarcinoma (HCC); Biliary obstruction; Pancreatic malabsorption; Pre-diabetes Malignant neoplasm o f head of pancreas (HCC) (Primary Dx); Pancreatic adenocarcinoma (HCC); Primary hypertension; Biliary obstruction; Pancreatic malabsorption; Pre-diabetes Malignant neoplasm o f head of pancreas (HCC) (Primary Dx) Pancreatic adenocarc inoma (HCC) (Primary Dx) Appointment Start: 11-07-2023 End: 11-07-2023 ambulatory Lab/Port Sush[place] [facility] Work Phone: Hematology/Oncology Comment on above: Malignant neoplasm o f head of pancreas (HCC) (Primary Dx) Start: 11-06-2023 Orders Only Tobi Llanos Work Phone: General Surgery Comment on above: Malignant neoplasm o f head of pancreas (HCC) (Primary Dx) Start: 11-05-2023 End: 11-05-2023 ambulatory Treatment Rm 4 Sushil [facility] Work Phone: Hematology/Oncology Comment on above: Malignant neoplasm o f head of pancreas (HCC) (Primary Dx) Start: 11-04-2023 End: 11-04-2023 Patient encounter procedure Nichole Wyman APRN.CNP Work Phone: Hematology/Oncology Start: 11-04-2023 End: 11-04-2023 ambulatory Lab/Port S[facility] [facility] Work Phone: Hematology/Oncology Comment on above: Malignant neoplasm o f head of pancreas (HCC); Pancreatic adenocarcinoma (HCC) Malignant neoplasm o f head of pancreas (HCC); Pancreatic malabsorption Start: 10-26-2023 Telephone encounter Phong schmidt DO Work Phone: Hematology/Oncology Comment on above: Results Start: 10-23-2023 End: 10-23-2023 ambulatory Lab/Port S[place] [facility] Work Phone: Hematology/Oncology Comment on above: Malignant neoplasm o f head of pancreas (HCC) (Primary Dx); Pancreatic adenocarcinoma (HCC) Start: 10-22-2023 Orders Only Phong Llanos O Work Phone: Hematology/Oncology Comment on above: Malignant neoplasm o f head of pancreas (HCC) (Primary Dx) Start: 10-21-2023 Telephone encounter Ashleigh NGUYEN Hematology/Oncology Start: 10-21-2023 End: 10-21-2023 ambulatory Treatment Rm 6 Sushil [facility] Work Phone: Hematology/Oncology Comment on above: Malignant neoplasm o f head of pancreas (HCC) (Primary Dx) Start: 10-20-2023 End: 10-20-2023 Patient encounter procedure Phong Aj DO Work Phone: Hematology/Oncology Start: 10-20-2023 End: 10-20-2023 ambulatory Lab/Port Sush[place] [facility] Work Phone: Hematology/Oncology Comment on above: Malignant neoplasm o f head of pancreas (HCC); Pancreatic adenocarcinoma (HCC) Malignant neoplasm o f head of pancreas (HCC) (Primary Dx) Start: 10-16-2023 ambulatory PHONG AJ Facility:1 [id number] Start: 10-16-2023 End: 10-16-2023 Subsequent hospital visit by physician Ct Prep Galena Work Phone: RADIO CT SCAN [facility] Comment on above: Malignant neoplasm o f head of pancreas (HCC) [C25.0] Start: 10-14-2023 Telephone encounter Gin zuniga RD Work Phone: Nutrition Therapy Start: 10-13-2023 Telephone encounter Phong schmidt DO Work Phone: Hematology/Oncology Comment on above: Results Start: 10-09-2023 End: 10-09-2023 ambulatory Lab/Port S[place] [facility] Work Phone: Hematology/Oncology Comment on above: Malignant neoplasm o f head of pancreas (HCC) (Primary Dx) Start: 10-08-2023 Refill Phong Llanos O Work Phone: Hematology/Oncology Comment on above: Refill Request Start: 10-07-2023 End: 10-07-2023 Nutrition therapy Gin Fausto PRESTON Work Phone: Nutrition Therapy Comment on above: Nutrition Assessment Start: 10-07-2023 End: 10-07-2023 ambulatory Treatment Rm 3 Sushil [facility] Work Phone: Hematology/Oncology Comment on above: Malignant neoplasm o f head of pancreas (HCC) (Primary Dx) Start: 10-06-2023 End: 10-06-2023 Patient encounter procedure Phong Aj DO Work Phone: Hematology/Oncology Start: 10-06-2023 End: 10-06-2023 ambulatory Lab/Port S[facility] [facility] Work Phone: Hematology/Oncology Comment on above: Malignant neoplasm o f head of pancreas (HCC); Pancreatic adenocarcinoma (HCC) Malignant neoplasm o f head of pancreas (HCC) (Primary Dx); Diarrhea, unspecified type; Primary hypertension Start: 10-06-2023 Telephone encounter Phong schmidt DO Work Phone: Hematology/Oncology Comment on above: Results Start: 09-25-2023 End: 09-25-2023 ambulatory Lab/Port S[place] [facility] Work Phone: Hematology/Oncology Comment on above: Malignant neoplasm o f head of pancreas (HCC) (Primary Dx) Start: 09-24-2023 Telephone encounter Phong schmidt DO Work Phone: Hematology/Oncology Comment on above: Medication Problem Start: 09-23-2023 End: 09-23-2023 ambulatory Treatment Rm 3 Sushil [facility] Work Phone: Hematology/Oncology Comment on above: Malignant neoplasm o f head of pancreas (HCC) (Primary Dx) Start: 09-22-2023 End: 09-22-2023 Office outpatient visit 25 minutes Phong Aj DO Work Phone: Hematology/Oncology Comment on above: Malignant neoplasm o f head of pancreas (HCC) (Primary Dx); Diarrhea, unspecified type; Primary hypertension Start: 09-22-2023 End: 09-22-2023 ambulatory Lab/Port S[place] [facility] Work Phone: Hematology/Oncology Comment on above: Malignant neoplasm o f head of pancreas (HCC); Pancreatic adenocarcinoma (HCC) Start: 09-22-2023 Telephone encounter Phong schmidt DO Work Phone: Hematology/Oncology Comment on above: AVS 09/22/23 Start: 09-15-2023 Telephone encounter Financial Navigator Sushil Work Phone: Financial Services Comment on above: Benefits Investigati on Start: 09-11-2023 End: 09-11-2023 ambulatory Lab/Port Sush[place] [facility] Work Phone: Hematology/Oncology Comment on above: Malignant neoplasm o f head of pancreas (HCC) (Primary Dx) Start: 09-09-2023 End: 09-09-2023 ambulatory Treatment Rm 2 Sushil [facility] Work Phone: Hematology/Oncology Comment on above: Malignant neoplasm o f head of pancreas (HCC) (Primary Dx) Start: 09-08-2023 End: 09-08-2023 Patient encounter procedure Phong Aj DO Work Phone: [facility] Start: 09-08-2023 End: 09-08-2023 ambulatory Lab/Port S[facility] [facility] Work Phone: Hematology/Oncology Comment on above: Malignant neoplasm o f head of pancreas (HCC) (Primary Dx); Pancreatic adenocarcinoma (HCC) Malignant neoplasm o f head of pancreas (HCC) (Primary Dx); Primary hypertension Start: 08-28-2023 End: 08-28-2023 ambulatory Lab/Port Sush[place] [facility] Work Phone: Hematology/Oncology Comment on above: Malignant neoplasm o f head of pancreas (HCC) (Primary Dx) Start: 08-28-2023 Telephone encounter Phong schmidt DO Work Phone: Hematology/Oncology Comment on above: Medication Question Start: 08-27-2023 Telephone encounter Phong schmidt DO Work Phone: Hematology/Oncology Comment on above: medication questions Start: 08-26-2023 Telephone encounter Tobi gandhi MD Work Phone: General Surgery Comment on above: Results Start: 08-26-2023 End: 08-26-2023 Nutrition therapy Gin Fausto JOHNSTON Work Phone: Nutrition Therapy Comment on above: Nutrition Assessment Start: 08-26-2023 End: 08-26-2023 ambulatory Treatment Rm 10 Sushil [facility] Work Phone: Hematology/Oncology Comment on above: Malignant neoplasm o f head of pancreas (HCC) (Primary Dx) Start: 08-25-2023 Telephone encounter Phong schmidt DO Work Phone: Hematology/Oncology Comment on above: Follow Up Start: 08-25-2023 End: 08-25-2023 ambulatory Lab/Port S[facility] [facility] Work Phone: Hematology/Oncology Comment on above: Pancreatic adenocarc inoma (HCC) (Primary Dx); 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) Pancreatic adenocarc inoma (HCC) Start: 08-25-2023 End: 08-25-2023 Telemedicine consultation with patient Sergei MINER Work Phone: [facility] Start: 08-22-2023 Orders Only Phong Tavera Work Phone: Hematology/Oncology Comment on above: Malignant neoplasm o f head of pancreas (HCC) (Primary Dx); Pancreatic adenocarcinoma (HCC) Start: 08-21-2023 End: 08-21-2023 ambulatory DELROY TROTTER Facility:[facility] Start: 08-19-2023 Telephone encounter Phong schmidt DO Work Phone: Hematology/Oncology Start: 08-18-2023 ambulatory BEAR BAHENA Facility: [facility] Start: 08-18-2023 End: 08-18-2023 Subsequent hospital visit by physician Bear Bahena MD Work Phone: H[facility]P MA[facility] [id number] Comment on above: 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.9] Start: 08-15-2023 Telephone encounter Gretchen Del Castillo RN He matology/Oncology Comment on above: Global Clinical Leader - O ther (Treatment Planning ) Start: 08-15-2023 End: 08-15-2023 cook cashier food prep [facility] Work Phone: Hematology/Oncology Comment on above: Encounter for educat ion (Primary Dx) Start: 08-12-2023 Telephone encounter Gretchen Del Castillo RN He matology/Oncology Comment on above: Global Clinical Leader - O ther (Introduction ) AVS 08/12/2023 Start: 08-12-2023 End: 08-12-2023 ambulatory PHONG AJ Facility:[facility] Start: 08-12-2023 End: 08-12-2023 ambulatory Phong Aj DO Work Phone: Hematology/Oncology Comment on above: Malignant neoplasm o f head of pancreas (HCC) (Primary Dx); Pancreatic adenocarcinoma (HCC); Biliary obstruction Start: 08-12-2023 End: 08-12-2023 Patient encounter procedure Phong Aj DO Work Phone: [facility] Start: 08-07-2023 Telephone encounter Tobi gandhi MD Work Phone: General Surgery Comment on above: Results Start: 08-06-2023 End: 08-06-2023 ambulatory TOBI NASCIMENTO Facility:[facility] Start: 08-06-2023 End: 08-06-2023 Subsequent hospital visit by physician Vickie James MD Work Phone: Gastroenterology Comment on above: Obstructive jaundice [K83.1] Start: 08-05-2023 Telephone encounter Phong schmidt DO Work Phone: Hematology/Oncology Comment on above: Appointment Start: 08-05-2023 End: 08-05-2023 Patient encounter procedure Tobi Nascimento MD Work Phone: General Surgery Comment on above: Pancreatic adenocarc inoma (HCC) (Primary Dx); 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) Start: 08-05-2023 End: 08-05-2023 ambulatory TOBI NASCIMENTO Facility:[facility] Start: 08-05-2023 End: 08-05-2023 ambulatory TOBI NASCIMENTO Facility:[facility] Start: 08-05-2023 End: 08-05-2023 Subsequent hospital visit by physician Ct 2 Main Qb (I-Stat) Radiology Comment on above: 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] Start: 08-04-2023 End: 08-04-2023 ambulatory TOBI NASCIMENTO Facility:[facility] Start: 07-31-2023 Telephone encounter Vaishali Youssef RN Work Phone: General Surgery Procedures Date Procedure Procedure Detail Performing Clinician Start: 03-15-2024 Blood count complete auto&auto difrntl wbc Phong A Masci DO Work Phone: Start: 03-01-2024 Blood count complete auto&auto difrntl wbc Phong A Masci DO Work Phone: Start: 02-17-2024 Blood count complete auto&auto difrntl wbc Phong A Masci DO Work Phone: Start: 02-17-2024 Lipid panel Delroy pennington MD Work Phone: Start: 02-17-2024 Lipid 1996 panel - S brigitte or Plasma Phong Masci DO Work Phone: Start: 01-26-2024 Blood count complete auto&auto difrntl wbc Phong A Masci DO Work Phone: Start: 01-13-2024 Blood count complete auto&auto difrntl wbc Phong A Masci DO Work Phone: Start: 01-06-2024 Ercp dx collection s pecimen brushing/washing Tobi Nascimento MD Work Phone: Start: 12-29-2023 Blood count complete auto&auto difrntl wbc Phong A Masci DO Work Phone: Start: 12-16-2023 Blood count complete auto&auto difrntl wbc Phong A Masci DO Work Phone: Start: 12-07-2023 Electrocardiogram DELROY TROTTER Start: 12-01-2023 Echocardiography DELROY CABALLERO Start: 11-28-2023 Antibody screen DELROY TONG Comment on above: Order Comment: Speci men Type: BLOOD SPECIMENOrdering Facility: [facility] Address: [address] [place] [address] Performed By: #### T SCR ####[facility] [id number] [place] [address] [place] Start: 11-26-2023 Lipid 1996 panel - S brigitte or Plasma Marylou Trevizo RN Work Phone: Start: 11-18-2023 End: 11-18-2023 Blood count complete auto&auto difrntl wbc Phong Norma Masci DO Work Phone: Start: 11-04-2023 CBC + DIFF Phong A Mas ci DO Work Phone: Start: 11-04-2023 Comprehensive metabolic panel Phong Green Masci DO Work Phone: Start: 10-23-2023 Comprehensive metabolic panel Phong Green Masci DO Work Phone: Start: 10-20-2023 Blood count complete auto&auto difrntl wbc Phong Norma Masci DO Work Phone: Start: 10-16-2023 Ct abdomen & pelvis w/contrast material Phong Green Masci DO Work Phone: Start: 10-16-2023 Ct thorax w/contrast material Phong Norma Masci DO Work Phone: Start: 10-06-2023 Blood count complete auto&auto difrntl wbc Phong A Masci DO Work Phone: Start: 09-22-2023 CBC + DIFF Phong A Mas ci DO Work Phone: Start: 09-22-2023 Comprehensive metabolic panel Phong A Masci DO Work Phone: Start: 09-08-2023 Blood count complete auto&auto difrntl wbc Phogn A Masci DO Work Phone: Start: 08-25-2023 Blood count complete auto&auto difrntl wbc Phong Norma Masci DO Work Phone: Start: 08-06-2023 Ercp dx collection s pecimen brushing/washing Tobi Nascimento MD Work Phone: Start: 08-05-2023 Ct abdomen & pelvis w/contrast material Tobi Nascimento MD Work Phone: Start: 08-05-2023 Creatinine [Mass/vol ume] in Serum or Plasma [facility] Provider Start: 04-09-2011 Lipid 1996 panel - S brigitte or Plasma Vaishali Youssef RN Work Phone: Start: 05-09-2010 Colonoscopy Vaishali Youssef RN Work Phone: Plan of Treatment Date Care Activity Detail Author Start: 09-24-2033 Urine microalbumin profile DTaP,Tdap,Td Vaccine (2 - Td or Tdap) [facility] Start: 02-16-2029 Lipid panel Lipid Screening [facility] Start: 11-25-2028 Lipid panel Lipid Screening [facility] Start: 03-15-2027 Diabetes Screening Diabetes Screenin [facility] Start: 03-01-2027 Diabetes Screening Diabetes Screenin g [facility] Start: 02-16-2027 Diabetes Screening Diabetes Screenin g [facility] Start: 01-25-2027 Diabetes Screening Diabetes Screenin g [facility] Start: 01-12-2027 Diabetes Screening Diabetes Screenin g [facility] Start: 12-28-2026 Diabetes Screening Diabetes Screenin g [facility] Start: 12-15-2026 Diabetes Screening Diabetes Screenin g [facility] Start: 12-09-2026 Diabetes Screening Diabetes Screenin g [facility] Start: 11-27-2026 Diabetes Screening Diabetes Screenin g [facility] Start: 11-17-2026 Diabetes Screening Diabetes Screenin g [facility] Start: 11-03-2026 Diabetes Screening Diabetes Screenin g [facility] Start: 10-22-2026 Diabetes Screening Diabetes Screenin g [facility] Start: 10-19-2026 Diabetes Screening Diabetes Screenin g [facility] Start: 10-05-2026 Diabetes Screening Diabetes Screenin g [facility] Start: 09-21-2026 Diabetes Screening Diabetes Screenin g [facility] Start: 09-07-2026 Diabetes Screening Diabetes Screenin g [facility] Start: 08-24-2026 Diabetes Screening Diabetes Screenin g [facility] Start: 08-11-2026 Diabetes Screening Diabetes Screenin g [facility] Start: 08-04-2026 Diabetes Screening Diabetes Screenin g [facility] Start: 11-17-2024 BP Controlled (<130/80) BP Controlle d (<130/80) [facility] Start: 10-19-2024 BP Controlled (<130/80) BP Controlle d (<130/80) [facility] Start: 10-05-2024 BP Controlled (<130/80) BP Controlle d (<130/80) [facility] Start: 08-05-2024 BP Controlled (<130/80) BP Controlle d (<130/80) [facility] Start: 05-27-2024 End: 05-27-2024 ambulatory 05/27/2024 4:00 PM EST Infusion Center Hematology/Oncology [address] [place] [address] Wstr, Lab/Port S[place] [facility] [address] [place] [address] D/C CADD* Hematology/Oncology Comment on above: D/C CADD* Start: 05-25-2024 End: 05-25-2024 ambulatory 05/25/2024 10:30 AM EST Infusion Center Hematology/Oncology [address] [place] [address] Q2WK FOLFIRINOX(PORT)LAB&OV 05/21/MDCR* Hematology/Oncology Comment on above: Q2WK FOLFIRINOX(PORT )LAB&OV 05/21/MDCR* Start: 05-21-2024 End: 05-21-2024 ambulatory Hematology/Oncology Comment on above: (SO)CBC/CMP(S)/MAG(S )/CA 19-9(PORT)/OV TODAY* OV(PORT)LABS TODAY/ CHEMO 05/25* Start: 05-13-2024 End: 05-13-2024 ambulatory 05/13/2024 4:00 PM EST Infusion Center Hematology/Oncology [address] [place] [address] Wstr, Lab/Port Sushil c [address] [place] [address] D/C CADD* Hematology/Oncology Comment on above: D/C CADD* Start: 05-11-2024 End: 05-11-2024 ambulatory 05/11/2024 10:00 AM EST Infusion Center Hematology/Oncology [address] [place] [address] QMO LUCIE/Q2WK FOLFIRINOX(PORT)LAB&OV 05/10/MDCR* Hematology/Oncology Comment on above: QMO LUCIE/Q2WK FOLFI RINOX(PORT)LAB&OV 05/10/MDCR* Start: 05-10-2024 End: 05-10-2024 ambulatory Hematology/Oncology Comment on above: (SO)CBC/CMP(S)/MAG(S )/CA 19-9(PORT)/OV TODAY* OV(PORT)LABS TODAY/ CHEMO 05/11* Start: 04-29-2024 End: 04-29-2024 ambulatory 04/29/2024 4:00 PM EST Infusion Center Hematology/Oncology [address] [place] [address] Wstr, Lab/Port Sush[place] [facility] [address] [place] [address] D/C CADD* Hematology/Oncology Comment on above: D/C CADD* Start: 04-27-2024 End: 04-27-2024 ambulatory 04/27/2024 10:30 AM EST Infusion Center Hematology/Oncology [address] [place] [address] Q2WK FOLFIRINOX(PORT)LAB&OV 04/26/MDCR* Hematology/Oncology Comment on above: Q2WK FOLFIRINOX(PORT )LAB&OV 04/26/MDCR* Start: 04-26-2024 End: 04-26-2024 ambulatory Hematology/Oncology Comment on above: (SO)CBC/CMP(S)/MAG(S )/CA 19-9(PORT)/OV TODAY* OV(PORT)LABS TODAY/ CHEMO 04/27* Start: 04-26-2024 End: 04-26-2024 Patient encounter procedure 04/26/2024 9:30 AM EST Appointment Radiation Oncology [address] [place] [address] [place] [id number] [place] [address] LL 5FX PANCREAS *BELT* E/O DLM Radiation Oncology Comment on above: LL 5FX PANCREAS *BEL T* E/O DLM Start: 04-23-2024 End: 04-23-2024 Patient encounter procedure 04/23/2024 8:30 AM EST Appointment Radiation Oncology [address] [place] [address] Abdoul Lee MD [address] [address] LL 5FX PANCREAS *BELT* E/O DLM Radiation Oncology Comment on above: LL 5FX PANCREAS *BEL T* E/O DLM Start: 04-21-2024 End: 04-21-2024 Patient encounter procedure Radiation Oncology Comment on above: LL 5FX PANCREAS *BEL T* E/O DLM Edge2 Start: 04-20-2024 End: 04-20-2024 Patient encounter procedure Radiation Oncology Comment on above: 5FX PANCREAS *BELT* TU/FRI DLM Start: 04-19-2024 End: 04-19-2024 Patient encounter procedure 04/19/2024 1:10 PM EST Appointment Radiation Oncology [address] [place] [address] [place] [address] [place] [address] LL 5FX PANCREAS *BELT* E/O DLM Radiation Oncology Comment on above: LL 5FX PANCREAS *BEL T* E/O DLM Start: 04-16-2024 End: 04-16-2024 Patient encounter procedure Radiation Oncology Comment on above: 5FX PANCREAS *BELT* TU/FRI DLM LL 5FX PANCREAS *BEL T* E/O TIME OK DLM/SCHEDULED Start: 04-15-2024 End: 04-15-2024 ambulatory 04/15/2024 4:[address] [facility] Hematology/Oncology [address] [place] [address] Wstr, Lab/Port Sush[place] [facility] [address] [place] [address] D/C CADD* Hematology/Oncology Comment on above: D/C CADD* Start: 04-13-2024 End: 04-13-2024 ambulatory Hematology/Oncology Comment on above: Q2WK FOLFIRINOX(PORT )LAB&OV 04/09/MDCR* QMO LUCIE/Q2WK FOLFI RINOX(PORT)LAB&OV 04/09/MDCR* Start: 04-13-2024 End: 04-13-2024 Patient encounter procedure Radiation Oncology Comment on above: 5FX PANCREAS *BELT* TU/FRI DLM Edge[facility] Start: 04-09-2024 End: 04-09-2024 ambulatory Hematology/Oncology Comment on above: (SO)CBC/CMP(S)/MAG(S )/CA 19-9(PORT)/OV TODAY* OV(PORT)LABS TODAY/ CHEMO 04/13* Start: 04-09-2024 End: 04-09-2024 Patient encounter procedure 04/09/2024 9:20 AM EDT Appointment Radiation Oncology [address] [place] [address] 5FX PANCREAS *BELT* TU/FRI DLM Radiation Oncology Comment on above: 5FX PANCREAS *BELT* TU/FRI DLM Start: 04-06-2024 End: 04-06-2024 Patient encounter procedure Radiation Oncology Comment on above: 5FX PANCREAS *BELT* TU/FRI TIME OK DLM/SCHEDULED Start: 04-01-2024 End: 04-01-2024 ambulatory 04/01/2024 4:00 PM EDT Infusion Center Hematology/Oncology [address] [place] [address] Wstr, Lab/Port Sushil [facility] [address] [place] [address] D/C CADD* Hematology/Oncology Comment on above: D/C CADD* Start: 03-30-2024 End: 03-30-2024 ambulatory 03/30/2024 9:30 AM EDT Infusion Center Hematology/Oncology [address] [place] [address] Q2WK FOLFIRINOX(PORT)LAB&OV 03/29/MDCR* Hematology/Oncology Comment on above: Q2WK FOLFIRINOX(PORT )LAB&OV 03/29/MDCR* Start: 03-29-2024 End: 03-29-2024 ambulatory Hematology/Oncology Comment on above: (SO)CBC/CMP(S)/MAG(S )/CA 19-9(PORT)/OV TODAY* OV(PORT)LABS TODAY/ CHEMO 03/30* Start: 03-26-2024 End: 03-26-2024 Nursing evaluation of patient and report Radiation Oncology Comment on above: Location: NURSING CA -LL Start: 03-26-2024 End: 03-26-2024 Patient encounter procedure Radiation Oncology Comment on above: PRE SIM Location: SIMULATOR CT-1 IV/ORAL SBRT PANC BE LT 4D NPO TX presim n/s Start: 03-18-2024 End: 03-18-2024 ambulatory 03/18/2024 4:00 PM EDT Infusion Center Hematology/Oncology [address] [place] [address] Wstr, Lab/[place] [facility] [address] [place] [address] D/C CADD* Hematology/Oncology Comment on above: D/C CADD* Start: 03-16-2024 End: 03-16-2024 ambulatory Hematology/Oncology Comment on above: QMO SANDOSTATIN/Q2WK FOLFIRINOX(PORT)LAB&OV 03/15/MDCR* Q2WK FOLFIRINOX(PORT )LAB&OV 03/15/MDCR* Start: 03-15-2024 End: 03-15-2024 ambulatory Hematology/Oncology Comment on above: (SO)CBC/CMP(S)/MAG(S )/CA 19-9(PORT)/OV TODAY* OV(PORT)LABS TODAY/ CHEMO 03/16* Start: 03-12-2024 End: 03-12-2024 ambulatory 03/12/2024 4:00 PM EDT Infusion Center Hematology/Oncology [address] [place] [address] Wstr, Lab/[place] [facility] [address] [place] [address] D/C CADD/QMO SANDOSTATIN* Hematology/Oncology Comment on above: D/C CADD/QMO SANDOST ATIN* Start: 03-11-2024 End: 03-11-2024 Follow-up encounter 03/11/2024 1:30 PM [facility] Radiation Oncology [address] [place] [address] Maximiliano Zaragoza MD [address] [place] [address] VV follow up per work q Radiation Oncology Comment on above: VV follow up per wor k q Start: 03-10-2024 End: 03-10-2024 ambulatory 03/10/2024 11:00 AM EDT Infusion Center Hematology/Oncology [address] [place] [address] Q2WK FOLFIRINOX(PORT)LAB&OV 03/09/MDCR* Hematology/Oncology Comment on above: Q2WK FOLFIRINOX(PORT )LAB&OV 03/09/MDCR* Start: 03-09-2024 End: 03-09-2024 ambulatory Hematology/Oncology Comment on above: (SO)CBC/CMP(S)/MAG(S )/CA 19-9(PORT)/OV TODAY* OV(PORT)LABS TODAY/ CHEMO 03/10* Start: 03-04-2024 End: 03-04-2024 ambulatory 03/04/2024 4:00 PM EDT Infusion Center Hematology/Oncology [address] [place] [address] Wstr, Lab/[place] [facility] [address] [place] [address] D/C CADD* Hematology/Oncology Comment on above: D/C CADD* Start: 03-02-2024 End: 03-02-2024 ambulatory 03/02/2024 11:00 AM EDT Infusion Center Hematology/Oncology [address] [place] [address] Q2WK FOLFIRINOX(PORT)LAB&OV 02/22/MDCR* Hematology/Oncology Comment on above: Q2WK FOLFIRINOX(PORT )LAB&OV 02/22/MDCR* Start: 03-01-2024 End: 03-01-2024 ambulatory Hematology/Oncology Comment on above: (SO)CBC/CMP(S)/MAG(S )/CA 19-9(PORT)/OV TODAY* OV(PORT)LABS TODAY/ CHEMO 03/02* Start: 02-26-2024 End: 02-26-2024 ambulatory 02/26/2024 4:00 PM EDT Infusion Center Hematology/Oncology [address] [place] [address] Wstr, Lab/[place] [facility] [address] [place] [address] D/C CADD* Hematology/Oncology Comment on above: D/C CADD* Start: 02-24-2024 End: 02-24-2024 ambulatory 02/24/2024 10:30 AM EDT Infusion Center Hematology/Oncology [address] [place] [address] Q2WK FOLFIRINOX(PORT)LAB&OV 02/22/MDCR* Hematology/Oncology Comment on above: Q2WK FOLFIRINOX(PORT )LAB&OV 02/22/MDCR* Start: 02-24-2024 End: 02-24-2024 ambulatory 02/24/2024 8:30 AM EDT Infusion Center Hematology/Oncology [address] [place] [address] Q2WK FOLFIRINOX(PORT)LAB&OV 02/22/MDCR* Hematology/Oncology Comment on above: Q2WK FOLFIRINOX(PORT )LAB&OV 02/22/MDCR* Start: 02-23-2024 End: 02-23-2024 ambulatory Hematology/Oncology Comment on above: (SO)CBC/CMP(S)/MAG(S )/CA 19-9(PORT)/OV TODAY* OV(PORT)LABS TODAY/ CHEMO 02/23* Start: 02-20-2024 End: 02-20-2024 Patient encounter procedure 02/20/2024 9:00 AM EDT Office Visit General Surgery [address] [place] [address] Tobi Nascimento MD [address] [place] [address] F/up & Results General Surgery Comment on above: F/up & Results Start: 02-19-2024 End: 02-19-2024 ambulatory 02/19/2024 4:00 PM EDT Infusion Center Hematology/Oncology [address] [place], [place] [id number] Wstr, Lab/[place] [facility] [address] [place], [place] [id number] D/C CADD* Hematology/Oncology Comment on above: D/C CADD* Start: 02-17-2024 End: 05-18-2024 Hemoglobin A1c in Blood [facility] Work Phone: Comment on above: Expected: 02/17/2024 , Expires: 05/18/2024 Start: 02-17-2024 End: 05-18-2024 Lipid 1996 panel - Serum or Plasma [facility] Comment on above: Expected: 02/17/2024 , Expires: 05/18/2024 Start: 02-17-2024 End: 02-17-2024 ambulatory Hematology/Oncology Comment on above: (SO)CBC/CMP(S)/MAG(S )/CA 19-9(PORT)/OV TODAY* OV(PORT)LABS TODAY/ CHEMO 02/10* - this date due to travel QMO SANDOSTATIN/Q2WK FOLFIRINOX(PORT)LAB&OV 02/05/MDCR* - this date due to travel ok for STRAIGHTBACK CBC/CMP/MAG/CA19.9/QMO SANDOSTATIN/Q2WK FOLFIRINOX(PORT)MDCR* - this date due to travel (SO)CBC/CMP(S)/MAG(S )/CA19.9/QMO SANDOSTATIN/Q2WK FOLFIRINOX(PORT)MDCR* - this date due to travel Start: 02-13-2024 End: 02-13-2024 ambulatory Hematology/Oncology Comment on above: D/C CADD* QMO SANDOSTATIN/D/C CADD* Start: 02-11-2024 End: 02-11-2024 ambulatory 02/11/2024 8:30 AM EDT Infusion Center Hematology/Oncology [address] [place] [address] Q2WK FOLFIRINOX(PORT)LAB&OV 02/05/MDCR* Hematology/Oncology Comment on above: Q2WK FOLFIRINOX(PORT )LAB&OV 02/05/MDCR* Start: 02-08-2024 Covid-19 Vaccine ( season) Covid-19 Vaccine () [facility] Start: 02-08-2024 Covid-19 Vaccine ( season) Covid-19 Vaccine () [facility] Start: 02-08-2024 Influenza vaccination [facility] Start: 02-06-2024 Subsequent hospital visit by physician 02/06/2024 2:20 PM EDT Hospital Encounter Radiology [address] [place] [address] 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) [C25.0] Radiology Comment on above: Malignant neoplasm o f head of pancreas (HCC) [C25.0] Start: 02-06-2024 End: 02-06-2024 Patient encounter procedure Radiology Comment on above: Malignant neoplasm o f head of pancreas (HCC) [C25.0]; Abnormal CT of liver [R93.2] Malignant neoplasm o f head of pancreas (HCC) [C25.0] Start: 02-06-2024 End: 02-06-2024 ambulatory Hematology/Oncology Comment on above: (SO)CBC/CMP(S)/MAG(S )/CA 19-9(PORT)/OV TODAY* OV(PORT)LABS TODAY/ CHEMO 02/10* ACCESS PORT FOR MRI Start: 01-29-2024 End: 01-29-2024 ambulatory 01/29/2024 4:00 PM EDT Infusion Center Hematology/Oncology [address] [place] [address] Wstr, Lab/[place] [facility] [address] [place] [address] D/C CADD* Hematology/Oncology Comment on above: D/C CADD* Start: 01-27-2024 End: 01-27-2024 ambulatory 01/27/2024 9:30 AM EDT Infusion Center Hematology/Oncology [address] [place] [address] Q2WK FOLFIRINOX(PORT)LAB&OV 01/25/MDCR* Hematology/Oncology Comment on above: Q2WK FOLFIRINOX(PORT )LAB&OV 01/25/MDCR* Start: 01-26-2024 End: 01-26-2024 ambulatory Hematology/Oncology Comment on above: (SO)CBC/CMP(S)/MAG(S )/CA 19-9(PORT)/OV TODAY* OV(PORT)LABS TODAY/ CHEMO 01/26* Start: 01-16-2024 End: 01-16-2024 ambulatory Hematology/Oncology Comment on above: D/C CADD* QMO SANDOSTATIN/D/C CADD* Start: 01-15-2024 End: 01-15-2024 ambulatory 01/15/2024 4:00 PM T Infusion Center Hematology/Oncology [address] [place] [address] Wstr, Lab/[place] [facility] [address] [place] [address] D/C CADD* Hematology/Oncology Comment on above: D/C CADD* Start: 01-14-2024 End: 01-14-2024 ambulatory Hematology/Oncology Comment on above: Q2WK FOLFIRINOX(PORT )LAB&OV 01/12/MDCR* Start: 01-13-2024 End: 04-13-2024 Ferritin [Mass/volume] in Serum or Plasma FERRITIN Lab Routine Anemia, unspecified type Expected: 01/13/2024, Expires: 04/13/2024 [facility] Comment on above: Expected: 01/13/2024 , Expires: 04/13/2024 Start: 01-13-2024 End: 04-13-2024 Iron and Iron binding capacity panel - Serum or Plasma IRON AND TIBC Lab Routine Anemia, unspecified type Expected: 01/13/2024, Expires: 04/13/2024 [facility] Comment on above: Expected: 01/13/2024 , Expires: 04/13/2024 Start: 01-13-2024 End: 01-13-2024 ambulatory Hematology/Oncology Comment on above: Q2WK FOLFIRINOX(PORT )LAB&OV 01/11/MDCR* (SO)CBC/CMP(S)/MAG(S )/CA 19-9(PORT)/OV TODAY* this date due to tra armando - OV(PORT)LABS TODAY/ CHEMO 01/14* masci Start: 01-12-2024 End: 01-12-2024 ambulatory Hematology/Oncology Comment on above: (SO)CBC/CMP(S)/MAG(S )/CA 19-9(PORT)/OV TODAY* OV(PORT)LABS TODAY/ CHEMO 01/12* Start: 01-06-2024 End: 01-06-2024 Patient encounter procedure General Surgery Comment on above: post 6 cycle treatme nt follow/panc mass - jaundice 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.9] N/C Malignant neopla sm of head of pancreas (HCC) [C25.0] Start: 01-02-2024 End: 01-02-2024 ambulatory 01/02/2024 4:00 PM EDT Infusion Center Hematology/Oncology [address] [place] [address] Wstr, Lab/[place] [facility] [address] [place] [address] D/C CADD* Hematology/Oncology Comment on above: D/C CADD* Start: 01-01-2024 End: 01-01-2024 ambulatory 01/01/2024 4:00 PM EDT Infusion Center Hematology/Oncology [address] [place] [address] Wstr, Lab/[place] [facility] [address] [place] [address] D/C CADD* Hematology/Oncology Comment on above: D/C CADD* Start: 12-31-2023 End: 12-31-2023 ambulatory Hematology/Oncology Comment on above: Q2WK FOLFIRINOX(PORT )LAB&OV 12/29/ MDCR* D/C CADD* Start: 12-30-2023 End: 12-30-2023 ambulatory 12/30/2023 10:30 AM T Infusion Center Hematology/Oncology [address] [place] [address] Q2WK FOLFIRINOX(PORT)LAB&OV 12/28/ MDCR* Hematology/Oncology Comment on above: Q2WK FOLFIRINOX(PORT )LAB&OV 12/28/ MDCR* Start: 12-30-2023 End: 12-30-2023 ambulatory Hematology/Oncology Comment on above: (SO)CBC/CMP(S)/MAG(S )/CA 19-9(PORT) OV(PORT)LABS TODAY/ CHEMO 12/30* Start: 12-29-2023 End: 12-29-2023 ambulatory Hematology/Oncology Comment on above: Q2WK FOLFIRINOX(PORT )LAB&OV 12/25/ MDCR* (SO)CBC/CMP(S)/MAG(S )/CA 19-9(PORT)/OV TODAY* OV(PORT)LABS TODAY/ CHEMO 12/29* Start: 12-26-2023 End: 12-26-2023 ambulatory Hematology/Oncology Comment on above: (SO)CBC/CMP(S)/MAG(S )/CA 19-9(PORT) OV(PORT)LABS TODAY/ CHEMO 12/28* Start: 12-25-2023 End: 12-25-2023 ambulatory Hematology/Oncology Comment on above: PORT ACCESS FOR CT* ADD ON HYDRATION FOR CT(PORT)/KEEP ACCESSED FORT CT* Start: 12-25-2023 End: 12-25-2023 Patient encounter procedure Cat Scan Comment on above: Malignant neoplasm o f head of pancreas (HCC) [C25.0] Start: 12-19-2023 End: 12-19-2023 ambulatory 12/19/2023 4:00 PM [facility] Infusion Center Hematology/Oncology [address] [place] [address] Wstr, Lab/[place] [facility] [address] [place] [address] D/C CADD* Hematology/Oncology Comment on above: D/C CADD* Start: 12-18-2023 End: 12-18-2023 ambulatory Hematology/Oncology Comment on above: D/C CADD* Malignant neoplasm o f head of pancreas (HCC) (Primary Dx) Start: 12-17-2023 End: 12-17-2023 ambulatory Hematology/Oncology Comment on above: Q2WK FOLFIRINOX(PORT )LAB&OV 12/15/ MDCR* D/C CADD* Start: 12-16-2023 End: 12-16-2023 ambulatory Hematology/Oncology Comment on above: (SO)CBC/CMP(S)/MAG(S )/CA 19-9(PORT) OV(PORT)LABS TODAY/ CHEMO 12/16* masci OV(PORT)LABSEARLY/CH EMO TODAY* masci coming in after OV - Q2WK FOLFIRINOX(PORT)LAB&OV EARLY/ MDCR* Start: 12-16-2023 End: 12-16-2023 ambulatory 12/16/2023 8:45 AM EDT Infusion Center Hematology/Oncology [address] [place] [address] Wstr, Lab/[place] [facility] [address] [place] [address] (SO)CBC/CMP(S)/MAG(S)/CA 19-9(PORT)/OV & CHEMO TODAY* Hematology/Oncology Comment on above: (SO)CBC/CMP(S)/MAG(S )/CA 19-9(PORT)/OV & CHEMO TODAY* Start: 12-15-2023 End: 12-15-2023 ambulatory 12/15/2023 8:30 AM EDT Infusion Center Hematology/Oncology [address] [place] [address] Q2WK FOLFIRINOX(PORT)LAB&OV 12/11/ MDCR* Hematology/Oncology Comment on above: Q2WK FOLFIRINOX(PORT )LAB&OV 7// MDCR* Start: 12-12-2023 End: 12-12-2023 ambulatory Hematology/Oncology Comment on above: (SO)CBC/CMP(S)/MAG(S )/CA 19-9(PORT) OV(PORT)LABS TODAY/ CHEMO 12/14* masci Start: 12-05-2023 End: 12-05-2023 ambulatory 12/05/2023 4:00 PM EDT Infusion Center Hematology/Oncology [address] [place] [address] Wstr, Lab/[place] [facility] [address] [place] [address] D/C CADD* Hematology/Oncology Comment on above: D/C CADD* Start: 12-04-2023 End: 12-04-2023 ambulatory 12/04/2023 4:00 PM EDT Infusion Center Hematology/Oncology [address] [place] [address] Wstr, Lab/[place] [facility] [address] [place] [address] D/C CADD* Hematology/Oncology Comment on above: D/C CADD* Start: 12-03-2023 End: 12-03-2023 ambulatory Hematology/Oncology Comment on above: Q2WK FOLFIRINOX(PORT )LAB&OV 12/01/ MDCR* D/C CADD* Start: 12-02-2023 End: 12-02-2023 ambulatory Hematology/Oncology Comment on above: (SO)CBC/CMP(S)/MAG(S )/CA 19-9(PORT) OV(PORT)LABS TODAY/ CHEMO 12/02* Q2WK FOLFIRINOX(PORT )LAB&OV 11/30/ MDCR* Start: 12-01-2023 End: 12-01-2023 ambulatory Hematology/Oncology Comment on above: Q2WK FOLFIRINOX(PORT )LAB&OV 11/27/ MDCR* (SO)CBC/CMP(S)/MAG(S )/CA 19-9(PORT)/OV TODAY* OV(PORT)LABS TODAY/ CHEMO 12/01* Start: 11-28-2023 End: 11-28-2023 Patient encounter procedure General Surgery Comment on above: post 6 cycle treatme nt follow/panc mass - jaundice Malignant neoplasm o f head of pancreas (HCC) [C25.0] Start: 11-28-2023 End: 11-28-2023 ambulatory Hematology/Oncology Comment on above: (SO)CBC/CMP(S)/MAG(S )/CA 19-9(PORT) OV(PORT)LABS TODAY/ CHEMO 11/30* Start: 11-25-2023 End: 02-24-2024 Basic metabolic 2000 panel - Serum or Plasma BASIC METABOLIC PANEL Lab Routine Pancreatic adenocarcinoma (HCC) Expected: 11/25/2023, Expires: 02/24/2024 [facility] Comment on above: Expected: 11/25/2023 , Expires: 02/24/2024 Start: 11-21-2023 End: 11-21-2023 ambulatory 11/21/2023 4:00 PM EDT Infusion Center Hematology/Oncology [address] [place] [address] Wstr, Lab/[place] [facility] [address] [place] [address] D/C CADD* Hematology/Oncology Comment on above: D/C CADD* Start: 11-20-2023 End: 11-20-2023 ambulatory 11/20/2023 4:00 PM EDT Infusion Center Hematology/Oncology [address] [place] [address] Wstr, Lab/[place] [facility] [address] [place] [address] D/C CADD* Hematology/Oncology Comment on above: D/C CADD* Start: 11-19-2023 End: 11-19-2023 ambulatory 11/19/2023 9:00 AM EDT Infusion Center Hematology/Oncology [address] [place] [address] Q2WK FOLFIRINOX(PORT)LAB&OV 11/17/ MDCR* Hematology/Oncology Comment on above: Q2WK FOLFIRINOX(PORT )LAB&OV 11/17/ MDCR* Start: 11-18-2023 End: 02-17-2024 Lipid 1996 panel - Serum or Plasma LIPID PANEL BASIC Lab Routine Primary hypertension Pancreatic adenocarcinoma (HCC) Biliary obstruction Pancreatic malabsorption Pre-diabetes Expected: 11/18/2023, Expires: 02/17/2024 [facility] Work Phone: Comment on above: Expected: 11/18/2023 , Expires: 02/17/2024 Start: 11-18-2023 End: 02-17-2024 Microalbumin/Creatinine [Mass Ratio] in Urine [facility] Comment on above: Expected: 11/18/2023 , Expires: 02/17/2024 Start: 11-18-2023 End: 02-17-2024 Urinalysis complete panel - Urine [facility] Comment on above: Expected: 11/18/2023 , Expires: 02/17/2024 Start: 11-18-2023 End: 11-18-2023 ambulatory Hematology/Oncology Comment on above: (SO)CBC/CMP(S)/MAG(S )/CA 19-9(PORT) OV(PORT)LABS TODAY/ CHEMO 11/18* OV(PORT)LABS TODAY/ CHEMO TODAY* Q2WK FOLFIRINOX(PORT )LAB&OV EARLY/ MDCR* Start: 11-07-2023 End: 11-07-2023 ambulatory 11/07/2023 4:00 PM EDT Infusion Center Hematology/Oncology [address] [place] [address] Wstr, Lab/[place] [facility] [address] [place] [address] D/C CADD* Hematology/Oncology Comment on above: D/C CADD* Start: 11-05-2023 End: 11-05-2023 ambulatory 11/05/2023 8:30 AM EDT Infusion Center Hematology/Oncology [address] [place] [address] Q2WK FOLFIRINOX(PORT)LAB&OV 11/03/ MDCR* Hematology/Oncology Comment on above: Q2WK FOLFIRINOX(PORT )LAB&OV 11/03/ MDCR* Start: 11-04-2023 End: 11-04-2023 ambulatory Hematology/Oncology Comment on above: (SO)CBC/CMP(S)/MAG(S )/CA 19-9(PORT) OV(PORT)LABS TODAY/ CHEMO 11/04* MASCI Start: 10-23-2023 End: 10-23-2023 ambulatory Hematology/Oncology Comment on above: D/C CADD* RECHECK BMP/POSSIBLE K?/ D/C CADD* Start: 10-23-2023 End: 01-22-2024 Basic metabolic 2000 panel - Serum or Plasma BASIC METABOLIC PANEL Lab STAT 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) Expected: 10/23/2023, Expires: 01/22/2024 [facility] Work Phone: Comment on above: Expected: 10/23/2023 , Expires: 01/22/2024 Start: 10-21-2023 End: 10-21-2023 ambulatory 10/21/2023 8:30 AM EDT Infusion Center Hematology/Oncology [address] [place] [address] Q2WK FOLFIRINOX(PORT)LAB&OV 10/19/ MDCR* Hematology/Oncology Comment on above: Q2WK FOLFIRINOX(PORT )LAB&OV 10/19/ MDCR* Start: 10-20-2023 End: 10-20-2023 ambulatory Hematology/Oncology Comment on above: (SO)CBC/CMP(S)/MAG(S )/CA 19-9(PORT) OV(PORT)LABS TODAY/ CHEMO 10/20* Start: 10-16-2023 End: 10-16-2023 Patient encounter procedure RADIO CT SCAN [facility] Comment on above: Dx: Malignant neopla sm of head of pancreas (HCC) [C25.0] Start: 10-09-2023 End: 10-09-2023 ambulatory 10/09/2023 4:00 PM EDT Infusion Center Hematology/Oncology [address] [place] [address] Wstr, Lab/[place] [facility] [address] [place] [address] D/C CADD* Hematology/Oncology Comment on above: D/C CADD* Start: 10-07-2023 End: 10-07-2023 ambulatory 10/07/2023 8:30 AM [facility] Hematology/Oncology [address] [place] [address] Q2WK FOLFIRINOX/ADD ON K & HYDRATION PER 10/05 TEPORT)LAB&OV 10/05/ MDCR* Hematology/Oncology Comment on above: Q2WK FOLFIRINOX/ADD ON K & HYDRATION PER 10/05 TEPORT)LAB&OV 10/05/ MDCR* Start: 08-25-2023 End: 11-24-2023 Cancer Ag 19-9 [Units/volume] in Serum or Plasma [facility] Work Phone: Comment on above: Expected: 08/25/2023 , Expires: 11/24/2023 Start: 08-25-2023 End: 11-24-2023 CBC W Auto Differential panel - Blood CBC + DIFF Lab STAT 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) Pancreatic adenocarcinoma (HCC) Expected: 08/25/2023, Expires: 11/24/2023 [facility] Work Phone: Comment on above: Expected: 08/25/2023 , Expires: 11/24/2023 Start: 08-25-2023 End: 11-24-2023 Comprehensive metabolic 2000 panel - Serum or Plasma COMP METABOLIC PANEL Lab STAT 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) Pancreatic adenocarcinoma (HCC) Expected: 08/25/2023, Expires: 11/24/2023 [facility] Work Phone: Comment on above: Expected: 08/25/2023 , Expires: 11/24/2023 Start: 08-25-2023 End: 11-24-2023 Magnesium [Mass/volume] in Serum or Plasma MAGNESIUM BLD Lab STAT 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) Pancreatic adenocarcinoma (HCC) Expected: 08/25/2023, Expires: 11/24/2023 [facility] Work Phone: Comment on above: Expected: 08/25/2023 , Expires: 11/24/2023 Start: 08-25-2023 End: 11-24-2023 MISC SEND OUT TST 1 [facility] Work Phone: Comment on above: Expected: 08/25/2023 , Expires: 11/24/2023 Start: 08-12-2023 End: 11-11-2023 Chronic hepatitis differentiation between hepatitis B and C virus panel - Serum or Plasma [facility] Work Phone: Comment on above: Expected: 08/12/2023 , Expires: 11/11/2023 Start: 08-12-2023 End: 11-11-2023 [id number] GENOTYPING PANEL [facility] Work Phone: Comment on above: Expected: 08/12/2023 , Expires: 11/11/2023 Start: 06-09-2023 Advance Directive Discussion Advance Directive Discussion [facility] Start: 06-09-2023 Behavioral Health Screening Behavioral Health Screening [facility] Start: 06-09-2023 Depression Assessment Depression Ass essment [facility] Start: 02-07-2023 Covid-19 Vaccine ( season) Covid-19 Vaccine ( season) [facility] Start: 02-07-2023 Influenza vaccination Influenza Vacc ine (#1) [facility] Start: 10-27-2020 Covid-19 Vaccine (3 - Moderna risk series) Covid-19 Vaccine (3 - Moderna risk series) [facility] Start: 2017 Pneumococcal Vaccine : 65+ (1 of 1 - PCV) Pneumococcal Vaccine: 65+ (1 of 1 - PCV) [facility] Start: 04-09-2016 Lipid panel Lipid Screening [facility] Start: 05-29-2014 Diabetes Screening Diabetes Screenin g [facility] Start: 2012 Hepatitis B Vaccine (1 of 3 - Risk 3-dose series) Hepatitis B Vaccine (1 of 3 - Risk 3-dose series) [facility] Start: 2012 RSV Vaccine (1 - 1-d ose 60+ series) RSV Vaccine (1 - 1-dose 60+ series) [facility] Start: 2012 RSV Vaccine (1 - Ris k 60-74 years 1-dose series) RSV Vaccine (1 - Risk 60-74 years 1-dose series) [facility] Start: 05-09-2011 Screening for malign ant neoplasm of colon [facility] Start: 2002 Shingrix Vaccine (1 of 2) Banuelos grix Vaccine (1 of 2) [facility] Start: 1997 Screening for malign ant neoplasm of colon [facility] Start: 1971 Hepatitis A Vaccine (1 of 2 - Risk 2-dose series) Hepatitis A Vaccine (1 of 2 - Risk 2-dose series) [facility] Start: 1971 Shingrix Vaccine (1 of 2) Banuelos grix Vaccine (1 of 2) [facility] Start: 1971 Urine microalbumin profile DTaP,Tdap,Td Vaccine (1 - Tdap) [facility] Start: 1970 Annual PCP Team [employer] Supervisor elkin Disease Visit Annual PCP Team Chronic Disease Visit [facility] Start: 1970 Anxiety Screening Anxiety Screening [facility] Start: 1970 BP Controlled (<130/80) BP Controlle d (<130/80) [facility] Start: 1970 Depression Screening Depression Scre ening [facility] Start: 1970 Hepatitis C screening Hepatitis C Sc reening [facility] Start: 1958 Pneumococcal Vaccine : 65+ (1 of 2 - PCV) Pneumococcal Vaccine: 65+ (1 of 2 - PCV) [facility] Cancer Ag 19-9 [Units/volume] in Serum or Plasma CA 19-9 BLD Lab Routine 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) Pancreatic adenocarcinoma (HCC) 09/08/2023 2:12 PM EDT [facility] Work Phone: Cancer Ag 19-9 [Units/volume] in Serum or Plasma CA 19-9 BLD Lab Routine 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) Pancreatic adenocarcinoma (HCC) 09/22/2023 3:30 PM EDT [facility] Work Phone: Cancer Ag 19-9 [Units/volume] in Serum or Plasma CA 19-9 BLD Lab Routine 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) Pancreatic adenocarcinoma (HCC) 10/06/2023 3:12 PM EDT [facility] Work Phone: Cancer Ag 19-9 [Units/volume] in Serum or Plasma CA 19-9 BLD Lab Routine 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) Pancreatic adenocarcinoma (HCC) 10/20/2023 3:26 PM [facility] Work Phone: Cancer Ag 19-9 [Units/volume] in Serum or Plasma CA 19-9 BLD Lab Routine 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) Pancreatic adenocarcinoma (HCC) 11/04/2023 8:03 AM [facility] Cancer Ag 19-9 [Units/volume] in Serum or Plasma CA 19-9 BLD Lab Routine 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) Pancreatic adenocarcinoma (HCC) 11/18/2023 9:23 AM [facility] Work Phone: Cancer Ag 19-9 [Units/volume] in Serum or Plasma CA 19-9 BLD Lab Routine 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) Pancreatic adenocarcinoma (HCC) 12/16/2023 8:19 AM [facility] Work Phone: Cancer Ag 19-9 [Units/volume] in Serum or Plasma CA 19-9 BLD Lab Routine 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) Pancreatic adenocarcinoma (HCC) 12/29/2023 8:29 AM [facility] Work Phone: Cancer Ag 19-9 [Units/volume] in Serum or Plasma CA 19-9 BLD Lab Routine 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) Pancreatic adenocarcinoma (HCC) 01/13/2024 10:20 AM [facility] Work Phone: Cancer Ag 19-9 [Units/volume] in Serum or Plasma CA 19-9 BLD Lab Routine 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) Pancreatic adenocarcinoma (HCC) 01/26/2024 9:28 AM [facility] Work Phone: Cancer Ag 19-9 [Units/volume] in Serum or Plasma CA 19-9 BLD Lab Routine 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) Pancreatic adenocarcinoma (HCC) 02/17/2024 9:51 AM [facility] Work Phone: Cancer Ag 19-9 [Units/volume] in Serum or Plasma CA 19-9 BLD Lab Routine 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) Pancreatic adenocarcinoma (HCC) 03/01/2024 10:06 AM [facility] Work Phone: Cancer Ag 19-9 [Units/volume] in Serum or Plasma CA 19-9 BLD Lab Routine 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) Pancreatic adenocarcinoma (HCC) 03/15/2024 10:58 AM [facility] Work Phone: CBC W Auto Different ial panel - Blood CBC + DIFF Lab STAT 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) Pancreatic adenocarcinoma (HCC) [facility] W Auto Different ial panel - Blood CBC + DIFF Lab STAT 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) Pancreatic adenocarcinoma (HCC) 11/04/2023 8:03 AM [facility] Work Phone: End: 10-21-2024 CT Abdomen and Pelvis W contrast IV CT ABD/PEL W IVCON Radiology Routine 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) 1 Occurrences starting 09/22/2023 until 10/21/2024 [facility] Work Phone: Comment on above: 1 Occurrences starti ng 09/22/2023 until 10/21/2024 End: 01-14-2025 CT Abdomen and Pelvis W contrast IV CT ABD/PEL W IVCON Radiology Routine 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) 1 Occurrences starting 12/16/2023 until 01/14/2025 [facility] Work Phone: Comment on above: 1 Occurrences starti ng 12/16/2023 until 01/14/2025 CT Abdomen and Pelvi s W contrast IV CT ABD/PEL W IVCON Radiology Routine 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) 12/25/2023 9:39 AM [facility] Work Phone: CT Chest W contrast IV CT CHEST W IVCON Radiology Routine Malignant neoplasm of pancreatic duct (HCC) 08/05/2023 12:03 PM [facility] Work Phone: End: 10-21-2024 CT Chest W contrast IV CT CHEST W IVCON Radiology Routine 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) 1 Occurrences starting 09/22/2023 until 10/21/2024 [facility] Work Phone: Comment on above: 1 Occurrences starti ng 09/22/2023 until 10/21/2024 End: 01-14-2025 CT Chest W contrast IV CT CHEST W IVCON Radiology Routine 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) 1 Occurrences starting 12/16/2023 until 01/14/2025 [facility] Comment on above: 1 Occurrences starti ng 12/16/2023 until 01/14/2025 CT Chest W contrast IV CT CHEST W IVCON Radiology Routine 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) 12/25/2023 9:39 AM EDT [facility] End: 02-24-2025 CT Chest WO contrast CT CHEST WO IVCON Radiology Routine 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) 1 Occurrences starting 01/26/2024 until 02/24/2025 [facility] Work Phone: Comment on above: 1 Occurrences starti ng 01/26/2024 until 02/24/2025 CT Chest WO contrast CT CHEST WO IVCON Radiology Routine 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) 02/06/2024 2:32 PM EDT [facility] Work Phone: End: 08-06-2024 ERCP ERCP Endoscopy Routine Obstructive jaundice 1 Occurrences starting 08/06/2023 until 08/06/2024 [facility] Work Phone: Comment on above: 1 Occurrences starti ng 08/06/2023 until 08/06/2024 End: 11-17-2024 ERCP ERCP Endoscopy Routine Pancreatic adenocarcinoma (HCC) 1 Occurrences starting 11/18/2023 until 11/17/2024 [facility] Work Phone: Comment on above: 1 Occurrences starti ng 11/18/2023 until 11/17/2024 Ferritin [Mass/volum e] in Serum or Plasma FERRITIN Lab Routine Anemia, unspecified type 01/14/2024 10:01 AM EDT [facility] Guidance for biopsy of Abdomen IMAGING GUIDED BIOPSY ABDOMEN/RETROPERITONEAL MASS Radiology Routine Pancreatic adenocarcinoma (HCC) Ordered: 08/05/2023 [facility] Work Phone: Comment on above: Ordered: 08/05/2023 Iron and Iron bindin g capacity panel - Serum or Plasma IRON AND TIBC Lab Routine Anemia, unspecified type 01/14/2024 10:01 AM EDT [facility] Work Phone: End: 02-11-2025 MR Liver WO and W contrast IV MRI LIVER WO/W IVCON Radiology Routine 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) Abnormal CT of liver 1 Occurrences starting 01/13/2024 until 02/11/2025 [facility] Work Phone: Comment on above: 1 Occurrences starti ng 01/13/2024 until 02/11/2025 MR Liver WO and W contrast IV MRI LIVER WO/W IVCON Radiology Routine 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) Abnormal CT of liver 02/06/2024 3:16 PM EDT [facility] Work Phone: PANC ELASTASE, FECAL PANC ELASTA SE, FECAL Lab Routine 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) Ordered: 10/06/2023 [facility] Work Phone: Comment on above: Ordered: 10/06/2023 SURGICAL PATHOLOGY [facility] Work Phone: Comment on above: Release Upon Orderin g for 1 Occurrences starting 08/06/2023, 1 completed End: 08-18-2023 SURGICAL PATHOLOGY [facility] Work Phone: Comment on above: ONCE for 1 Occurrenc es starting 08/18/2023 until 08/18/2023, 1 completed [facility] Payers Date Payer Category Payer Medicare MEDICARE MEDICAR E A AND B [id number] 2017-Present [phone] [place] [address] Medicare [id number] 2017 Medicare [id number] Social History Date Type Detail Facility Start: 01-25-2011 End: 08-05-2023 Tobacco smoking status NHIS Never smoked tobacco [facility] Start: 01-25-2011 End: 08-05-2023 Tobacco use and exposure Smokeless tobacco non-user [facility] Start: 05-07-2021 End: 03-15-2024 Alcohol intake Current non-drinker of alcohol (finding) [facility] Start: 05-07-2021 End: 08-05-2023 History of Social function [facility] Start: 05-07-2021 End: 08-05-2023 Tobacco use panel [facility] National Score (1-10 0), lower number is lower risk Not on file [facility] Start: 1950 Sex Assigned At Not on file [facility] Start: 1950 Sex Assigned At Male C [facility] Start: 08-15-2023 Gender identity Identifies as male gender (finding) [facility] Start: 08-15-2023 Sexual orientation Heterosexual (vinicio loza) [facility] Has the [employer], or [employer] threatened to shut off services in your home in past 12Mo No [facility] (I/We) worried wheth er (my/our) food would run out before (I/we) got money to buy more. Never true [facility] Medical Equipment Procedure Code Equipment Code Equipment Original Text Equipment Identifier Dates Stent 10fr Duode nal Bend Plastic 7cm Biliary Temporary Rapid Exchange - [id number] Start: 08-06-2023 [place] M ri 8fr Plastic Polyurethane Implantable Infusion - [id number] Start: 08-21-2023 Stent [place] Viabi l 10mm Metal 80mm 200cm Endoprosthesis No Hole Full Cover - [id number] Start: 01-06-2024 Clinical Notes 10-02-2020 to 03-26-2024 Tiffanie Gonzalez RN - 03/26/2024 10:02 AM Tiffanie Campbell RN - 03/26/2024 10:01 AM Tiffanie Campbell RN - 03/26/2024 10:00 AM Maximiliano Armenta MD - 03/26/2024 12:00 AM EDT Note Date & Type Note Facility 03-26-2024 Note [facility] 03-26-2024 History of Present illness Narrative Radiation Oncology Nursing Note PATIENT NAME: Kristin Lara PATIENT [facility] FACILITY/LOCATION: [facility] PROCEDURE: Hydration Safety Checks Patient identified using 2 identifiers: Yes Is the patient having any pain? None. 0 on a scale of 0 to 10. Concerns about physical or emotional abuse: No Fall risk: No IV start: Time: 0954. #22g angiocath placed in the Left AC. Positive blood return verified: Yes IV Hydration start time: 0955 Physician order for IV hydration verified: Yes Patient's allergies verified, including CT contrast: Yes IV Fluid administration data: NS (normal saline) 1000 ml IV Push: No Hydration stop time: 1122 IV removal time: 1122 SIGNED by Tiffanie Gonzalez RN Radiation Oncology Nursing Note PATIENT NAME: Kristin Lara PATIENT [facility] FACILITY/LOCATION: [facility] PROCEDURE: Contrast Injection for CT Simulation Safety Checks Patient identified using 2 identifiers: Yes NPO x 4 hours verified: Yes Creatinine level drawn within the last 60 days: Yes Creatinine level within normal limits: 1.75. IV hydration ordered. IV start: Time: 0954. #22g angiocath placed in the Left AC. Positive blood return verified: Yes Physician order for contrast injection verified: Yes Patient's allergies verified, including CT contrast: Yes SIGNED by Tiffanie Gonzalez RN Radiation Therapy - Patient Education Note PATIENT NAME: Kristin Lara PATIENT March 26, 2024 [facility] FACILITY/LOCATION: [facility] [place] READINESS TO LEARN Cognitive Ability: Alert and oriented Motivation to learn: Eager Interested Family Support: High - Very involved in pt care Instruction provide to: Patient and family member Patient learns best by: Individual Instruction Written Instruction - Hand-outs Verbal Instruction Factors effecting learning: None Physical limitations effecting learning: None LEARNING RESPONSE Diagnosis: Pt simulated today for radiation therapy to abdomen. Education Topic/Teaching Points: Radiation therapy, Side effects, and OTV: Method of instruction: Individual instruction Written instruction/Handouts Verbal instruction Patient /Family response: Patient and family verbalized understanding of radiation treatments, side effects, OTV, and transportation. Follow-up plan: Patient instructed to call with any further issues Supplemental material: Informational handouts on SBRT pancreas. Referral (recommendation): None, Pt denied need for social work, van service, and motel manager. Was PED reviewed? Yes Patient has an Onbody or Implanted device: No Signed by: Tiffanie Gonzalez RN documented in this encounter [facility] 03-26-2024 Note [facility] 03-26-2024 Note [facility] 03-26-2024 History of Present illness Narrative KRISTIN LARA [id number] 03/26/2024 [facility] Department of Radiation Oncology [facility] RADIATION ONCOLOGY SIMULATION NOTE DATE OF SIMULATION: 03/26/2024 MACHINE: CT Simulator DIAGNOSIS: pancreatic cancer AREA:Pancreas PATIENT POSITION: Supine. CONTRAST: 100cc omnipaque PROTOCOL: None BLOCKS: Custom blocks are necessary to develop an optimal plan. FIXATION DEVICE: In order to achieve accurate and reproducible treatments, the patient is immobilized with bodyfix and compression belt. PROCEDURE: A time-out was conducted and recorded by the therapist. Patient was simulated on the CT scanner for external beam radiation therapy. Respiratory motion management set-up and use at the time of 4D CT simulation was reviewed. Treatment site was marked by the simulation therapist. ASSESSMENT/PLAN: Patient tolerated simulation procedure well. Treatments will be initiated after treatment planning. The patient will be scheduled for a verification simulation on the treatment machine to ensure proper set-up and field arrangement is correct prior to the first treatment of primary and any boost velazquez if applicable. Electronically Signed Maximiliano Zaragoza M.D. 1:23 PM documented in this encounter [facility] 03-26-2024 History of Present illness Narrative JANE KRISTIN BhanuRuben [id number] 03/26/2024 [facility] Department of Radiation Oncology [facility] RADIATION ONCOLOGY - Therapist Injection Note Procedure: Contrast Injection for CT Simulation Safety Checks: Patient identified using two identifiers: Yes Physician order for contrast injection verified: Yes Patient's allergies verified, including CT contract: Yes eGFR verified: Yes Omnipaque: 300 mg/ml Volume: 100cc Time contrast administered: 10:23AM Complications/Reaction: No Patient Disposition: Patient IV access: Peripheral Time IV removed: N/A Patient/family provided with treatment instructions: Yes Patient/family verbally acknowledged understanding of treatment instructions: Yes Disposition: NURSES STATION FOR FLUIDS Therapist: lul documented in this encounter [facility] 03-26-2024 Note [facility] 03-26-2024 Note [facility] 03-25-2024 Telephone encounter Note RADIATION ONCOLOGY NURSING PRE-SIM CALL Today's date: March 25, 2024 Time: 11:32 AM SIM date: 03/26/2024 Patient instructed to be NPO past 6am. Pt verbalizes understanding. SIM needs: Do you have a Mediport or PICC: Yes, Pre Medication Required: No Anxiety / Claustrophobia History: No Pain Needs: Is that patient having pain that will impact SIM? No Will patient need pain medication prior to SIM? No Last Creatinine: Creatinine Date Value Ref Range Status 03/15/2024 1.75 (H) 0.73 - 1.22 mg/dL Final ] Last BUN: BUN Date Value Ref Range Status 03/15/2024 29 (H) 9 - 24 mg/dL Final Last GFR: No results found for: EGFR IV Contrast: No Diabetic: Yes, Patient not on any diabetic medications that need to be stopped post-contrast Status: Patient is male Melinda Meza RN [facility] 03-25-2024 Miscellaneous Notes RADIATION ONCOLOGY NURSING PRE-SIM CALL Today's date: March 25, 2024 Time: 11:32 AM SIM date: 03/26/2024 Patient instructed to be NPO past 6am. Pt verbalizes understanding. SIM needs: Do you have a Mediport or PICC: Yes, Pre Medication Required: No Anxiety / Claustrophobia History: No Pain Needs: Is that patient having pain that will impact SIM? No Will patient need pain medication prior to SIM? No Last Creatinine: Creatinine Date Value Ref Range Status 03/15/2024 1.75 (H) 0.73 - 1.22 mg/dL Final ] Last BUN: BUN Date Value Ref Range Status 03/15/2024 29 (H) 9 - 24 mg/dL Final Last GFR: No results found for: EGFR IV Contrast: No Diabetic: Yes, Patient not on any diabetic medications that need to be stopped post-contrast Status: Patient is male Melinda Meza RN documented in this encounter [facility] 03-16-2024 Note HNO ID: [id number] Author: NATALY BETH RN Service: ? Author Type: Registered Nurse Type: Progress Notes Filed: 03/16/2024 11:42 Note Text: Assessment unchanged from Romi Wyman [facility] office visit on 03/15/24 [facility] 03-16-2024 History of Present illness Narrative Assessment unchanged from Romi Wyman [employer] office visit on 03/15/24 documented in this encounter [facility] 03-15-2024 Telephone encounter Note Patient's blood glucose today was 230. Patient needs to contact his PCP to schedule an appointment for blood sugar management. Patient is aware of all information and will contact his PCP. Lab result faxed to Dr. Trotter. Jasmina Morales LPN [facility] 03-15-2024 Miscellaneous Notes Patient's blood glucose today was 230. Patient needs to contact his PCP to schedule an appointment for blood sugar management. Patient is aware of all information and will contact his PCP. Lab result faxed to Dr. Trotter. Jasmina Morales LPN documented in this encounter [facility] 03-15-2024 Note [facility] 03-15-2024 History of Present illness Narrative Chief Complaint Patient presents with: Established Patient HPI: Kristin Lara is a 74 year old male who presents here today for evaluation for treatment tomorrow. Per Dr. Aj's previous note: H/o hypertension, renal lithiasis, BOSS and GI bleed (admitted 04/16/2021 [facility] for hematemesis; previous laparotomy with wedge resection of gastric fundus and Sam fundoplication 2009 for GI bleed) and recent diagnosis of pancreas cancer. Gastric ulcer secondary to NSAID use in 2009. Recently developed jaundice. CT A/P [facility] 07/30/2023: FINDINGS: The visualized lung bases are unremarkable. The visualized portions of the heart are within normal limits. Moderate degree of the intrahepatic biliary ductal dilatation. There is dilatation of the common bile duct. It measures 1.4 cm in transverse dimension. The distal portion of the common bile duct is not well visualized. There are surgical clips in the gallbladder fossa consistent with a prior cholecystectomy. Normal spleen. I suspect a 3.5 cm x 2.6 cm mass in the head of the pancreas. There is diffuse atrophy of the pancreas. There is diffuse irregular pancreatic ductal dilatation. Correlation with ERCP is recommended to rule out obstruction of the distal portion of the common bile duct. Soft tissue fullness is seen in the region of the celiac axis. Adenopathy should be ruled out. Normal bilateral adrenal glands. Normal right kidney. Nonobstructive 7.3 mm calculus in the lower pole calyx of the left kidney. There is a moderate-sized hiatal hernia. Prior subtotal gastrectomy. Normal small intestine. There are multiple colonic diverticula consistent with diverticulosis. The appendix is visualized and appears normal. Normal abdominal aorta. Normal inferior vena cava. Normal retroperitoneum. Normal urinary bladder. The prostate measures 3.7 cm x 4.5 cm. Central calcifications are seen. Results of prior bilateral inguinal hernia repair and lower anterior abdominal wall repair with mesh. There are diffuse degenerative changes of the visualized lumbar spine. Minimal anterior listhesis of L5 and S1 with a spondylolysis of the pars interarticularis of the L5 vertebrae. IMPRESSION: Dilated intrahepatic biliary duct as well as the pancreatic duct and common bile duct. Findings suggestive of a mass in the head of the pancreas. Correlation with ERCP is recommended. The patient is status post cholecystectomy. Nonobstructive calculus in the lower pole calyx of left kidney. Status post partial gastric resection. CT pancreas 08/05/2023: IMPRESSION: 3.2 cm pancreatic head mass with vascular involvement as described. Severe biliary dilation, slightly increased from 07/30/2023 CT. 1.2 cm perihepatic node/nodule, possibly metastatic. Few additional prominent periportal nodes; attention on follow-up. MORPHOLOGIC EVALUATION: a.Location: Head /Uncinate b. Size: 2.8 x 3.2 x 3.0 cm (CC x AP x T) (2:53, 4:44) c.Density:Hypodense d. Pancreatic duct abrupt cut off :Present e. Pancreatic duct upstream dilatation: Present, measuring up to 1.6 cm (2:48). f. Biliary tree abrupt cut off:Present e. Biliary tree upstream dilatation: Severe intrahepatic and extrahepatic biliary duct dilation, slightly increased from prior. ARTERIAL EVALUATION SMA Degree of solid soft tissue contact: None Degree of increased hazy attenuation/stranding contact: < 180 degrees (4:50) Focal vessel narrowing or contour irregularity: Absent Extension to first SMA branch: Probably present CELIAC AXIS Degree of solid soft tissue contact: None Degree of increased hazy attenuation/stranding contact: > 180 degrees Focal vessel narrowing or contour irregularity: Present, focal narrowing of the distal celiac trunk (3:155) ALEX Degree of solid soft tissue contact: None Degree of increased hazy attenuation/stranding contact: > 180 degrees Focal vessel narrowing or contour irregularity: Absent Extension to celiac axis: Present Extension to bifurcation of right/left hepatic artery: Absent ARTERIAL VARIANT ANATOMY: Absent VENOUS EVALUATION MPV: Present Degree of solid soft tissue contact: <180 degrees (7:42) Degree of increased hazy attenuation/stranding contact: < 180 degrees Focal vessel narrowing or contour irregularity: Absent SMV: Absent Degree of solid soft tissue contact: None Degree of increased hazy attenuation/stranding contact: None Focal vessel narrowing or contour irregularity: Absent Extension to first draining vein: Absent Venous thrombus: No venous thrombosis. Venous collaterals: None CONTIGUOUS ORGAN INVASION: None SUSPICIOUS LYMPH NODES: Few prominent upper abdominal nodes, for example: * 0.8 cm periportal node (5:44) * 1 cm portal caval node (5: 49) LIVER LESIONS: Absent. PERITONEUM: Ascites absent. 1.2 cm node/nodule anterior to the right hepatic lobe (5:53). OTHER ABDOMINAL FINDINGS: Spleen: No mass. No splenomegaly. Calcified granulomas. Adrenals: No mass. Kidneys: 8 mm left lower pole calculus. Subcentimeter lesions too small to characterize but likely benign. No solid mass or hydronephrosis. GI tract: No dilation or wall thickening. Moderate hiatal hernia. Surgical clips at the GE junction. Normal appendix. Colonic diverticulosis. Pelvis: No mass, ascites or fluid collection. Bones/Soft Tissues: Degenerative changes. Mesh anchors along the lower anterior abdominal wall. Lower thorax: A chest CT performed will be reported separately. Telesales Team Leader (topogram) images: No additional findings. Underwent EGD/EUD along with ERCP on 08/06/2023. On EUS was noted to have an irregular mass in the pancreatic head. It was hypoechoic. Measured 3 cm in maximal cross-sectional diameter. Borders were poorly defined. Fine-needle biopsy was performed. 2 passes with a 22-gauge shark core biopsy needle using transduodenal approach was utilized. The celiac plexus and celiac ganglia were visualized and showed no signs of significant endosonographic abnormality. ERCP--Was found to have a single severe segmental biliary stricture in the lower third of the main bile duct and middle third of the main bile duct. It was malignant appearing. Upper third of the duct was severely dilated. Sphincterotomy was performed. Biliary tree was swept and nothing was found. A plastic stent was placed into the common bile duct. Pathology: Pancreas, head, mass, biopsy: -Adenocarcinoma Prior very active. Was dx borderline DM last year. Made an effort to lose weight--32 lbs. Was able to come off metformin. Previous therapy: 1) FOLFIRINOX. Cycle 1 was administered FOLFOX. This was secondary to intermediate metabolizer for irinotecan and Admitted to [facility] 11/26 through 12/11 for sepsis and diarrhea. C. difficile negative. Started on Metamucil and cholestyramine. Received in RBC transfusion. Had NATHAN and acidosis. Attributed to sepsis, volume depletion from diarrhea. Blood pressure meds held. Blood cultures remain negative. Echocardiogram normal. Octreotide was started. Metamucil was stopped. Blood pressure medicines including metoprolol and Norvasc were restarted when blood pressure increased. Received a total of 12 days of Zosyn and vancomycin as well as 6 days of Diflucan. Current therapy: 1) FOLFOX. Underwent ERCP. Found to have a single moderate biliary stricture in the middle third of the main bile duct. It was malignant appearing. Choledocholithiasis observed. Complete removal was accomplished by balloon extraction. Biliary tree was swept. A covered metal stent was placed. 1 x 8 cm. Pt. here today with family member. No new concerns today. Appetite: Good. Wt. stable. Energy level: Ok, my low time is after treatment. Denies fevers. 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 Past medical history, appointments, medications, allergies reviewed. No changes. EXAM: BP 151/95 Pulse 72 Temp 36.4 C (97.5 F) (Temporal) Wt 75.8 kg (167 lb) SpO2 99% BMI 23.96 kg/m APPEARANCE Well appearing, alert, in no acute distress, well-hydrated, well nourished. HEART RRR with normal S1 and S2, no murmurs LUNG clear to auscultation LYMPH NODES No cervical lymphadenopathy, No supraclavicular lymphadenopathy, and No axillary lymphadenopathy. ABDOMEN bowel sounds normoactive, soft, non-tender EXTREMITIES No edema NEURO Awake, alert and oriented x 3, Normal gait, and No involuntary motions. SKIN Skin color, texture, turgor normal, no suspicious rashes or lesions LABS: Latest Ref Rng 02/17/2024 03/01/2024 03/15/2024 WBC 3.70 - 11.00 k/uL 14.11 (H) 14.97 (H) 16.13 (H) RBC 4.20 - 6.00 m/uL 3.20 (L) 3.21 (L) 3.39 (L) Hemoglobin 13.0 - 17.0 g/dL 9.5 (L) 9.6 (L) 10.3 (L) Hematocrit 39.0 - 51.0 % 29.6 (L) 30.4 (L) 31.9 (L) MCV 80.0 - 100.0 fL 92.5 94.7 94.1 MCH 26.0 - 34.0 pg 29.7 29.9 30.4 MCHC 30.5 - 36.0 g/dL 32.1 31.6 32.3 RDW-CV 11.5 - 15.0 % 16.6 (H) 16.3 (H) 17.1 (H) Platelet Count 150 - 400 k/uL 190 150 179 MPV 9.0 - 12.7 fL 10.3 10.4 10.5 Neut% % 76.7 81.1 80.2 Abs Neut (ANC) 1.45 - 7.50 k/uL 10.81 (H) 12.12 (H) 12.92 (H) Lymph% % 13.0 8.1 8.7 Abs Lymph 1.00 - 4.00 k/uL 1.84 1.21 1.40 [place]% % 8.5 7.7 6.9 Abs [place] <0.87 k/uL 1.20 (H) 1.16 (H) 1.12 (H) Eosin% % 0.4 0.9 0.7 Abs Eosin <0.46 k/uL 0.06 0.14 0.12 Baso% % 0.5 0.5 0.6 Abs Baso <0.11 k/uL 0.07 0.08 0.10 Immature Gran % % 0.9 1.7 2.9 IMMATURE GRANS (ABS) <0.10 k/uL 0.13 (H) 0.26 (H) 0.47 (H) NRBC /100 WBC 0.0 0.0 0.0 Absolute nRBC <0.01 k/uL <0.01 <0.01 <0.01 DTYPE Auto Auto Auto CMP/Mag/CA19-9: Pending ASSESSMENT/PLAN: 1. 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) - ICD9: 157.0, ICD10: C25.0 Locally advanced/metastatic pancreas cancer. Per Dr. Aj's previous note: Assessment: -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 -Biliary obstruction on presentation. -Suspicious mesenteric nodule anterior to the lower right lobe of the liver. Prominent upper abdominal lymph nodes. -UGT1A1 intermediate metabolizer; DPYD normal metabolizer. -Biopsy of abdominal nodule nondiagnostic. -Genetic testing negative. 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 No actionable mutation. -TB recs: --Not operative candidate. --Continue with chemotherapy. Consider radiation for local control after 12 cycles completion. --May need to have a diagnostic lap for perionteal nodule. -Hospitalized for prolonged diarrhea. Irinotecan held. -Improved on octreotide, continued PEP and omission of irinotecan. -CA 19-9 trending lower even prior to metallic stent placement. -Had radiation oncology consultation at [facility]. -Home BP this am 135/84. Plan: -Stop oxaliplatin due to neuropathy. -Continue infusional 5FU. -Monitor CA 19-9. -Consider continuing infusional 5FU or change to gem Abraxane pending response to radiation. -Continue pancreatic enzyme replacement. -Stop octreotide. -Planning for SBRT at [facility]. - Overall tolerated last cycle well since discontinuing oxaliplatin d/t worsening neuropathy. - Reviewed CBC with pt. - CMP/Mag/CA19-9 pending. - Monitor CA19-9. - Pt. requesting that 5fu be dose reduced d/t going out of town this weekend. - Continue current medications. - Follow up as scheduled at [facility] for SBRT. - Proceed as scheduled tomorrow for FOLFOX-no oxal. dose reduced 5fu this cycle. - Follow up as scheduled. - Pt. aware to call office with any questions/concerns. The patient indicates understanding of these issues and agrees with the plan. Discussed case with Dr. Aj who agrees with treatment plan. All documentation from previous visit of 03/02/23-Dr. Aj was copied and pasted, documentation has been reviewed and edited as necessary for today's visit. Nichole Wyman APRN.SAFETY DEPOSIT SUPERVISOR documented in this encounter [facility] 03-01-2024 Note [facility] 03-01-2024 History of Present illness Narrative Oncologic problem(s): 1) Locally advanced/metastatic pancreas cancer. HPI: The patient is a 73-year-old male with past medical history significant for hypertension, renal lithiasis, BOSS and GI bleed (admitted 04/16/2021 [facility] for hematemesis; previous laparotomy with wedge resection of gastric fundus and Sam fundoplication 2009 for GI bleed) and recent diagnosis of pancreas cancer. Gastric ulcer secondary to NSAID use in 2009. Recently developed jaundice. CT A/P [facility] 07/30/2023: FINDINGS: The visualized lung bases are unremarkable. The visualized portions of the heart are within normal limits. Moderate degree of the intrahepatic biliary ductal dilatation. There is dilatation of the common bile duct. It measures 1.4 cm in transverse dimension. The distal portion of the common bile duct is not well visualized. There are surgical clips in the gallbladder fossa consistent with a prior cholecystectomy. Normal spleen. I suspect a 3.5 cm x 2.6 cm mass in the head of the pancreas. There is diffuse atrophy of the pancreas. There is diffuse irregular pancreatic ductal dilatation. Correlation with ERCP is recommended to rule out obstruction of the distal portion of the common bile duct. Soft tissue fullness is seen in the region of the celiac axis. Adenopathy should be ruled out. Normal bilateral adrenal glands. Normal right kidney. Nonobstructive 7.3 mm calculus in the lower pole calyx of the left kidney. There is a moderate-sized hiatal hernia. Prior subtotal gastrectomy. Normal small intestine. There are multiple colonic diverticula consistent with diverticulosis. The appendix is visualized and appears normal. Normal abdominal aorta. Normal inferior vena cava. Normal retroperitoneum. Normal urinary bladder. The prostate measures 3.7 cm x 4.5 cm. Central calcifications are seen. Results of prior bilateral inguinal hernia repair and lower anterior abdominal wall repair with mesh. There are diffuse degenerative changes of the visualized lumbar spine. Minimal anterior listhesis of L5 and S1 with a spondylolysis of the pars interarticularis of the L5 vertebrae. IMPRESSION: Dilated intrahepatic biliary duct as well as the pancreatic duct and common bile duct. Findings suggestive of a mass in the head of the pancreas. Correlation with ERCP is recommended. The patient is status post cholecystectomy. Nonobstructive calculus in the lower pole calyx of left kidney. Status post partial gastric resection. CT pancreas 08/05/2023: IMPRESSION: 3.2 cm pancreatic head mass with vascular involvement as described. Severe biliary dilation, slightly increased from 07/30/2023 CT. 1.2 cm perihepatic node/nodule, possibly metastatic. Few additional prominent periportal nodes; attention on follow-up. MORPHOLOGIC EVALUATION: a.Location: Head /Uncinate b. Size: 2.8 x 3.2 x 3.0 cm (CC x AP x T) (2:53, 4:44) c.Density:Hypodense d. Pancreatic duct abrupt cut off :Present e. Pancreatic duct upstream dilatation: Present, measuring up to 1.6 cm (2:48). f. Biliary tree abrupt cut off:Present e. Biliary tree upstream dilatation: Severe intrahepatic and extrahepatic biliary duct dilation, slightly increased from prior. ARTERIAL EVALUATION SMA Degree of solid soft tissue contact: None Degree of increased hazy attenuation/stranding contact: < 180 degrees (4:50) Focal vessel narrowing or contour irregularity: Absent Extension to first SMA branch: Probably present CELIAC AXIS Degree of solid soft tissue contact: None Degree of increased hazy attenuation/stranding contact: > 180 degrees Focal vessel narrowing or contour irregularity: Present, focal narrowing of the distal celiac trunk (3:155) ALEX Degree of solid soft tissue contact: None Degree of increased hazy attenuation/stranding contact: > 180 degrees Focal vessel narrowing or contour irregularity: Absent Extension to celiac axis: Present Extension to bifurcation of right/left hepatic artery: Absent ARTERIAL VARIANT ANATOMY: Absent VENOUS EVALUATION MPV: Present Degree of solid soft tissue contact: <180 degrees (7:42) Degree of increased hazy attenuation/stranding contact: < 180 degrees Focal vessel narrowing or contour irregularity: Absent SMV: Absent Degree of solid soft tissue contact: None Degree of increased hazy attenuation/stranding contact: None Focal vessel narrowing or contour irregularity: Absent Extension to first draining vein: Absent Venous thrombus: No venous thrombosis. Venous collaterals: None CONTIGUOUS ORGAN INVASION: None SUSPICIOUS LYMPH NODES: Few prominent upper abdominal nodes, for example: * 0.8 cm periportal node (5:44) * 1 cm portal caval node (5: 49) LIVER LESIONS: Absent. PERITONEUM: Ascites absent. 1.2 cm node/nodule anterior to the right hepatic lobe (5:53). OTHER ABDOMINAL FINDINGS: Spleen: No mass. No splenomegaly. Calcified granulomas. Adrenals: No mass. Kidneys: 8 mm left lower pole calculus. Subcentimeter lesions too small to characterize but likely benign. No solid mass or hydronephrosis. GI tract: No dilation or wall thickening. Moderate hiatal hernia. Surgical clips at the GE junction. Normal appendix. Colonic diverticulosis. Pelvis: No mass, ascites or fluid collection. Bones/Soft Tissues: Degenerative changes. Mesh anchors along the lower anterior abdominal wall. Lower thorax: A chest CT performed will be reported separately. Telesales Team Leader (topogram) images: No additional findings. Underwent EGD/EUD along with ERCP on 08/06/2023. On EUS was noted to have an irregular mass in the pancreatic head. It was hypoechoic. Measured 3 cm in maximal cross-sectional diameter. Borders were poorly defined. Fine-needle biopsy was performed. 2 passes with a 22-gauge shark core biopsy needle using transduodenal approach was utilized. The celiac plexus and celiac ganglia were visualized and showed no signs of significant endosonographic abnormality. ERCP--Was found to have a single severe segmental biliary stricture in the lower third of the main bile duct and middle third of the main bile duct. It was malignant appearing. Upper third of the duct was severely dilated. Sphincterotomy was performed. Biliary tree was swept and nothing was found. A plastic stent was placed into the common bile duct. Pathology: Pancreas, head, mass, biopsy: -Adenocarcinoma Prior very active. Was dx borderline DM last year. Made an effort to lose weight--32 lbs. Was able to come off metformin. Previous therapy: 1) FOLFIRINOX. Cycle 1 was administered FOLFOX. This was secondary to intermediate metabolizer for irinotecan and Admitted to [facility] 11/26 through 12/11 for sepsis and diarrhea. C. difficile negative. Started on Metamucil and cholestyramine. Received in RBC transfusion. Had NATHAN and acidosis. Attributed to sepsis, volume depletion from diarrhea. Blood pressure meds held. Blood cultures remain negative. Echocardiogram normal. Octreotide was started. Metamucil was stopped. Blood pressure medicines including metoprolol and Norvasc were restarted when blood pressure increased. Received a total of 12 days of Zosyn and vancomycin as well as 6 days of Diflucan. Current therapy: 1) FOLFOX. Underwent ERCP. Found to have a single moderate biliary stricture in the middle third of the main bile duct. It was malignant appearing. Choledocholithiasis observed. Complete removal was accomplished by balloon extraction. Biliary tree was swept. A covered metal stent was placed. 1 x 8 cm. Presents for ongoing oncologic management. Interim history: Persistent fingertip neuropathy that really flared after last cycle. Somewhat improved since then.. Involving toes and soles of feet; I have a little trouble feeling the ground. Trouble going up and down stairs. Good appetite. Much less diarrhea. PAST MEDICAL HISTORY Diagnosis Date Acute gastritis without mention of hemorrhage Diverticulosis of colon (without mention of hemorrhage) Hernia of unspecified site of abdominal cavity without mention of obstruction or gangrene hiatal Iron deficiency anemia, unspecified 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) 08/12/2023 Nonalcoholic steatohepatitis (BOSS) Unspecified essential hypertension Essential hypertension PAST SURGICAL HISTORY Procedure Laterality Date CHOLECYSTECTOMY 10/2004 laparoscopic COLONOSCOPY FLX DX W/COLLJ SPEC WHEN PFRMD 12/16/07 Extensive sigmoid diverticulosis COLONOSCOPY FLX DX W/COLLJ SPEC WHEN PFRMD 05/25/10 Extensive sigmoid diverticulosis EGD TRANSORAL BIOPSY SINGLE/MULTIPLE 12/16/07 HH, Schatzki ring,antral gastritis EGD TRANSORAL BIOPSY SINGLE/MULTIPLE 05/25/10 HH LAPAROSCOPY SURG RPR INITIAL INGUINAL HERNIA 02-01-08 RIGHT inguinal hernia LAPAROSCOPY SURG RPR INITIAL INGUINAL HERNIA LEFT inguinal hernia PAST SURGICAL HISTORY OF 05/14/2011 Hernia repair REMV CATARACT EXTRACAP,INSERT LENS Right 11/02/2020 SN60WF +16.0 D ALLERGIES Allergen Reactions Phenergan [Prometha* Anaphylaxis vital signs dropped / patient coded Current Outpatient Medications Medication Sig nbfqgf-jrcykvqv-wlvcvqf (ZENPEP) 40,000-126,000- 168,000 unit delayed release capsule Take 2 capsules by mouth three times a day with meals. Potassium Bicarb-Citric Acid (K-LYTE) 25 mEq disintegrating tablet Take 1 tablet by mouth two times a day. Magnesium Chloride (SLOW-MAG) 71.5 mg TbEC Take 1 tablet by mouth two times a day. metoclopramide HCl (REGLAN) 10 mg tablet Take 1 tablet by mouth three times a day. but not within 6 hours of taking olanzapine. OLANZapine (ZYPREXA) 5 mg tablet TAKE 1 TABLET BY MOUTH ONCE DAILY AT BEDTIME BEGINNING THE EVENING OF FIRST DAY OF CHEMOTHERAPY EACH CYCLE AND TAKE FOR 4 DAYS. cholestyramine (QUESTRAN) 4 gram packet Take 1 Packet by mouth two times a day with meals. metoprolol tartrate, short acting, (LOPRESSOR) 25 mg tablet Take 1 tablet by mouth every 12 hours. loratadine (CLARITIN) 10 mg tablet Take 10 mg by mouth as needed. amLODIPine (NORVASC) 5 mg tablet Take 1 tablet by mouth once daily. lidocaine-prilocaine (EMLA) 2.5-2.5 % cream Apply 60 minutes prior to accessing port. dexAMETHasone (DECADRON) 4 mg tablet Take 1 tablet by mouth two times a day with meals. for 3 days beginning the day after chemotherapy treatment. ondansetron (ZOFRAN) 8 mg tablet Take 1 tablet by mouth every 8 hours as needed (For chemotherapy induced nausea and vomiting.). Hold for 72 hours after each chemotherapy treatment. OLANZapine (ZYPREXA) 5 mg tablet Take 1 tablet by mouth daily at bedtime. beginning the evening of first day of chemotherapy each cycle and take for 4 days. metoclopramide HCl (REGLAN) 10 mg tablet TAKE 1 TABLET BY MOUTH THREE TIMES DAILY. DO NOT TAKE WITHIN 6 HOURS OF TAKING OLANZAPINE. iv contrast (will be provided with radiology test) CT ABD/PEL -Inject, intravenously, once for 1 dose.No IV access, insert saline lock prior to the beginning of sedation, infusion, injection of imaging exam. Discontinue saline lock post exam. If Pt. has a central line or IVAD, may access for administration according to line specific nursing protocol. Once exam is complete flush line and de-access according to line specific nursing protocol in the CT contrast administration guidelines link. enteric contrast (will be provided with radiology test) For CT ABD/PEL W IVCON Routine order Administer, As Directed One Time Only, via Oral, Rectal, both Oral and Rectal, Enteric Tube, Stoma or Indwelling Catheter, Enteric Contrast as designated per enteric contrast guidelines iv contrast (will be provided with radiology test) CT Chest W -Inject, intravenously, once for 1 dose.No IV access, insert saline lock prior to the beginning of sedation, infusion, injection of imaging exam. Discontinue saline lock post exam. If Pt. has a central line or IVAD, may access for administration according to line specific nursing protocol. Once exam is complete flush line and de-access according to line specific nursing protocol in the CT contrast administration guidelines link. No current facility-administered medications for this visit. 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 Family History Problem Relation Age of Onset Stroke Mother age 72 Diabetes Father age 90 and prostate cancer Cataract Father Prostate Cancer Father Psychiatry Sister A & W, controlled with medication Hypertension Sister Diabetes Sister A & W Diabetes Brother A & W Diabetes Brother A & W Diabetes Brother A & W Diabetes Brother A & W None Brother A & W Colon Cancer Brother Father--Prostate cancer low grade in his 60s. Lived to 90. Brother--Colon cancer-- from metastatic disease age 77. Daughter--Breast cancer age 39. Now Two years out. First cousin--Pancreas cancer (mothers are sisters). Breast cancer on 's side. ROS: Constitutional: No fever. No drenching night sweats. Neuro: No recent GO, vertigo, dizziness or imbalance. No symptoms of sensory neuropathy. HEENT: No recent change in voice, vision or hearing. Resp: No cough, wheeze of hemoptysis. No shortness of breath at rest. CVS: No exertional chest pain, PND or orthopnea. No extremity swelling/edema. No symptoms of claudication. No painful or tender varicose veins. GI: See above. : No dysuria or gross hematuria. No symptoms of bladder outlet obstruction. Endo: No hot flashes. No polyuria or polydipsia. No heat or cold intolerance. Musculoskeletal: No bone, back, joint and muscular pain. Derm: No current rash. No history of jaundice. No diffuse pruritis. Heme: No unusual bleeding and unexplained bruising. Psych: Normal mood. PHYSICAL EXAM: Vitals: Blood pressure 165/84, pulse 72, temperature 36.7 C (98 F), temperature source Temporal, weight 76.1 kg (167 lb 12.8 oz), SpO2 98%. Well-appearing and in no acute distress. EYES: Sclerae are mildly icteric bilaterally. LYMPHATIC: There is no palpable cervical or supraclavicular adenopathy. RESPIRATORY: Inspiratory breath sounds are of normal intensity in all velazquez. No rales, wheezes or rhonchi CARDIOVASCULAR: Rhythm is regular. ABDOMEN: The abdomen is nondistended. No tenderness or mass. Extremities: No swelling or edema. SKIN: No rash. LABS: Latest Ref [facility] 01/26/2024 WBC 3.70 - 11.00 k/uL 18.61 (H) RBC 4.20 - 6.00 m/uL 3.29 (L) Hemoglobin 13.0 - 17.0 g/dL 9.5 (L) Hematocrit 39.0 - 51.0 % 31.9 (L) MCV 80.0 - 100.0 fL 97.0 MCH 26.0 - 34.0 pg 28.9 MCHC 30.5 - 36.0 g/dL 29.8 (L) RDW-CV 11.5 - 15.0 % 16.7 (H) Platelet Count 150 - 400 k/uL 158 MPV 9.0 - 12.7 fL 10.4 Neut% % 80.7 Abs Neut (ANC) 1.45 - 7.50 k/uL 15.01 (H) Lymph% % 9.8 Abs Lymph 1.00 - 4.00 k/uL 1.83 [place]% % 6.7 Abs [place] <0.87 k/uL 1.24 (H) Eosin% % 0.9 Abs Eosin <0.46 k/uL 0.17 Baso% % 0.6 Abs Baso <0.11 k/uL 0.11 (H) Immature Gran % % 1.3 IMMATURE GRANS (ABS) <0.10 k/uL 0.25 (H) NRBC /100 WBC 0.0 Absolute nRBC <0.01 k/uL <0.01 DTYPE Auto ASSESSMENT/PLAN: (C25.0) 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) (primary encounter diagnosis) (K83.1) Biliary obstruction Assessment: -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 -Biliary obstruction on presentation. -Suspicious mesenteric nodule anterior to the lower right lobe of the liver. Prominent upper abdominal lymph nodes. -UGT1A1 intermediate metabolizer; DPYD normal metabolizer. -Biopsy of abdominal nodule nondiagnostic. -Genetic testing negative. 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 No actionable mutation. -TB recs: --Not operative candidate. --Continue with chemotherapy. Consider radiation for local control after 12 cycles completion. --May need to have a diagnostic lap for perionteal nodule. -Hospitalized for prolonged diarrhea. Irinotecan held. -Improved on octreotide, continued PEP and omission of irinotecan. -CA 19-9 trending lower even prior to metallic stent placement. -Had radiation oncology consultation at [facility]. -Home BP this am 135/84. Plan: -Stop oxaliplatin due to neuropathy. -Continue infusional 5FU. -Monitor CA 19-9. -Consider continuing infusional 5FU or change to gem Abraxane pending response to radiation. -Continue pancreatic enzyme replacement. -Stop octreotide. -Planning for SBRT at [facility]. Portions of this documentation were copied and pasted from previous office visit notes in order to provide a cohesive continuity of the history. The note has been reviewed and edited and updated as necessary. I spent a total of 25 minutes on the date of the service which included preparing to see the patient, [id number] patient care, completing clinical documentation, obtaining and/or reviewing separately obtained history, performing a medically appropriate examination, counseling and educating the patient/family/caregiver, ordering medications, tests, or procedures, communicating with other HCPs (not separately reported), and communicating results to the patient/family/caregiver. Phong Aj DO documented in this encounter [facility] 02-24-2024 Telephone encounter Note Called and spoke with patient's about tumor board discussion and recommendation for definitive SBRT. All Qs answered. Will ask Dr. Zaragoza to get him back in. Tobi Nascimento MD [facility] Work Phone: 02-24-2024 Miscellaneous Notes Called and spoke with patient's about tumor board discussion and recommendation for definitive SBRT. All Qs answered. Will ask Dr. Zaragoza to get him back in. Tobi Nascimento MD documented in this encounter [facility] 02-24-2024 Note [facility] 02-20-2024 Telephone encounter Note Prescription faxed to [facility] this date. Sent to internal scanning. SALOMON Guzman [facility] 02-20-2024 Miscellaneous Notes Prescription faxed to [facility] this date. Sent to internal scanning. SALOMON Guzman Please sign/print Rx. Jasmina Morales LPN documented in this encounter [facility] 02-20-2024 Telephone encounter Note Please sign/print Rx. Jasmina Morales LPN [facility] 02-20-2024 History of Present illness Narrative Images from the original note were not included. [facility] SURGERY FOLLOW UP NOTE ASSESSMENT AND PLAN: Kristin Lara is a 73 year old male diagnosed with locally advanced pancreatic adenocarcinoma in 07/2023 who presents for re-evaulation while on FOLFIRINOX Tx. He is planned for SBRT and/or D/L after chemo is complete. - plan to present at tumor board on Friday - plan to discuss SBRT vs long course chemo/SBRT (after diagnostic lap to assess peritoneal disease) Discussed with Dr. Nascimento, Holden Carney MD General Surgery Resident HPI: This is a 73 year old male who presents for follow up of PDAC of the pancreatic head. He presented with painless jaundice 07/2023, 3.5 x 2.6 cm pancreatic mass with double duct sign. Biopsy was consisistent with pancreatic adenocarcinoma. On presentation, the tumor demonstrated >180 abuttment with ALEX with extension to celiac axis. There were also questionable mesenteric/peritoneal nodules. He was presented at tumor board 11/11/23 and determined not to be an operative candidate. He was recommended for FOLFIRINOX x 12 cycles, with possible subsequent RT. Patient was admitted on 11/2023 for hypotension, suspected sepsis, and diarrhea. Blood cultures were negative, as was C.diff PCR. He was started on octreotide, after which his diarrhea significantly improved (along with ZenPep). Follow up CT A/P from 12/24 redemonstrated similar appearance of the pancreatic mass, redemonstrated peritoneal implant, and a new possible R lobe liver lesion. CT chest was negative for evidence of thoracic metastasis. We saw him last on 01/06/24 after he completed FOLFIRINOX x 8 cycles. At that time he had a normal appetite, no abdominal pain, and was even gaining a few pounds of weight. CBD covered metal stent placed 01/06/24. He then saw radiation oncology on 01/26/24 and they recommended SBRT after chemo was completed. He also saw H/O on 01/26/24. MRI on 02/06/24 showing no obvious liver mets. PAST MEDICAL HISTORY: PAST MEDICAL HISTORY Diagnosis Date Acute gastritis without mention of hemorrhage Diverticulosis of colon (without mention of hemorrhage) Hernia of unspecified site of abdominal cavity without mention of obstruction or gangrene hiatal Iron deficiency anemia, unspecified 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) 08/12/2023 Nonalcoholic steatohepatitis (BOSS) Unspecified essential hypertension Essential hypertension PAST SURGICAL HISTORY: PAST SURGICAL HISTORY Procedure Laterality Date CHOLECYSTECTOMY 10/2004 laparoscopic COLONOSCOPY FLX DX W/COLLJ SPEC WHEN PFRMD 12/16/07 Extensive sigmoid diverticulosis COLONOSCOPY FLX DX W/COLLJ SPEC WHEN PFRMD 05/25/10 Extensive sigmoid diverticulosis EGD TRANSORAL BIOPSY SINGLE/MULTIPLE 12/16/07 HH, Schatzki ring,antral gastritis EGD TRANSORAL BIOPSY SINGLE/MULTIPLE 05/25/10 HH LAPAROSCOPY SURG RPR INITIAL INGUINAL HERNIA 02-01-08 RIGHT inguinal hernia LAPAROSCOPY SURG RPR INITIAL INGUINAL HERNIA LEFT inguinal hernia PAST SURGICAL HISTORY OF 05/14/2011 Hernia repair REMV CATARACT EXTRACAP,INSERT LENS Right 11/02/2020 SN60WF +16.0 D FAMILY HISTORY: FAMILY HISTORY Problem Relation Age of Onset Stroke Mother age 72 Diabetes Father age 90 and prostate cancer Cataract Father Prostate Cancer Father Psychiatry Sister A & W, controlled with medication Hypertension Sister Diabetes Sister A & W Diabetes Brother A & W Diabetes Brother A & W Diabetes Brother A & W Diabetes Brother A & W None Brother A & W Colon Cancer Brother SOCIAL HISTORY: Social History Tobacco Use Smoking status: Never Smokeless tobacco: Never Vaping Use Vaping status: Never Used Substance Use Topics Alcohol use: No Drug use: No MEDICATIONS: Prior to Admission Medications: lafaeo-uzoogfnw-zvdmbwh (ZENPEP) 40,000-126,000- 168,000 unit delayed release capsule Take 2 capsules by mouth three times a day with meals. Potassium Bicarb-Citric Acid (K-LYTE) 25 mEq disintegrating tablet Take 1 tablet by mouth two times a day. Magnesium Chloride (SLOW-MAG) 71.5 mg TbEC Take 1 tablet by mouth two times a day. metoclopramide HCl (REGLAN) 10 mg tablet Take 1 tablet by mouth three times a day. but not within 6 hours of taking olanzapine. OLANZapine (ZYPREXA) 5 mg tablet Take 1 tablet by mouth daily at bedtime. beginning the evening of first day of chemotherapy each cycle and take for 4 days. OLANZapine (ZYPREXA) 5 mg tablet TAKE 1 TABLET BY MOUTH ONCE DAILY AT BEDTIME BEGINNING THE EVENING OF FIRST DAY OF CHEMOTHERAPY EACH CYCLE AND TAKE FOR 4 DAYS. metoclopramide HCl (REGLAN) 10 mg tablet TAKE 1 TABLET BY MOUTH THREE TIMES DAILY. DO NOT TAKE WITHIN 6 HOURS OF TAKING OLANZAPINE. cholestyramine (QUESTRAN) 4 gram packet Take 1 Packet by mouth two times a day with meals. metoprolol tartrate, short acting, (LOPRESSOR) 25 mg tablet Take 1 tablet by mouth every 12 hours. loratadine (CLARITIN) 10 mg tablet Take 10 mg by mouth as needed. amLODIPine (NORVASC) 5 mg tablet Take 1 tablet by mouth once daily. iv contrast (will be provided with radiology test) CT ABD/PEL -Inject, intravenously, once for 1 dose.No IV access, insert saline lock prior to the beginning of sedation, infusion, injection of imaging exam. Discontinue saline lock post exam. If Pt. has a central line or IVAD, may access for administration according to line specific nursing protocol. Once exam is complete flush line and de-access according to line specific nursing protocol in the CT contrast administration guidelines link. enteric contrast (will be provided with radiology test) For CT ABD/PEL W IVCON Routine order Administer, As Directed One Time Only, via Oral, Rectal, both Oral and Rectal, Enteric Tube, Stoma or Indwelling Catheter, Enteric Contrast as designated per enteric contrast guidelines iv contrast (will be provided with radiology test) CT Chest W -Inject, intravenously, once for 1 dose.No IV access, insert saline lock prior to the beginning of sedation, infusion, injection of imaging exam. Discontinue saline lock post exam. If Pt. has a central line or IVAD, may access for administration according to line specific nursing protocol. Once exam is complete flush line and de-access according to line specific nursing protocol in the CT contrast administration guidelines link. lidocaine-prilocaine (EMLA) 2.5-2.5 % cream Apply 60 minutes prior to accessing port. dexAMETHasone (DECADRON) 4 mg tablet Take 1 tablet by mouth two times a day with meals. for 3 days beginning the day after chemotherapy treatment. ondansetron (ZOFRAN) 8 mg tablet Take 1 tablet by mouth every 8 hours as needed (For chemotherapy induced nausea and vomiting.). Hold for 72 hours after each chemotherapy treatment. No current facility-administered medications for this visit. ALLERGIES: ALLERGIES Allergen Reactions Phenergan [Prometha* Anaphylaxis vital signs dropped / patient coded COMPLETE REVIEW OF SYSTEMS: GENERAL: No weight loss, malaise or fevers RESPIRATORY: Negative for cough, wheezing or shortness of breath. CARDIOVASCULAR: Negative for chest pain, leg swelling or palpitations. GI: Negative for abdominal discomfort, blood in stools or black stools or change in bowel habits MUSCULOSKELETAL: Negative for joint pain or swelling, back pain or muscle pain. SKIN: Negative for lesions, rash, and itching. HEMATOLOGY/LYMPHOLOGY Negative for prolonged bleeding, bruising easily or swollen nodes. ENDOCRINE: Negative for cold or heat intolerance, polyuria, polydipsia and goiter. PHYSICAL EXAM: There were no vitals taken for this visit. General: Well developed and well nourished appearance. No acute distress. Skin: No rash on chest, arms or legs. Warm, dry. Head/Eyes: Sclera clear, normal conjunctiva. EOMI. Lungs: Normal respiratory effort on room air Heart: Regular rate Abdomen: Soft abdomen, nontender, nondistended . Neurologic/Psychiatric: Oriented to person, place, time. Normal affect. No gross focal neurologic deficits. [facility] STAFF PHYSICIAN NOTE OF PERSONAL INVOLVEMENT IN CARE I have reviewed the progress note obtained and documented by the resident and I personally participated in the reyes components. I have discussed the case and management of the patient's care. The following comments revise or confirm relevant reyes components of the note. IMPRESSION: This is a 73 year old with locally advanced pancreatic adenocarcinoma nearing 6 months of systemic chemotherapy. Direct review of MRI liver does not support the presence of a liver metastasis. CA19-9 reviewed - hovering around 60-80. The question now is what is the most appropriate means of local control, given the heavy celiac/ALEX involvement I favor definitive SBRT, I think a total pancreatosplenectomy with arterial reconstruction is excessive PLAN: Review at tumor board next week, likely SBRT after completion of cycle 12 Medical Decision Making: Problems: High: Illness/injury w/ threat to life/body function Data: Unique test result(s) reviewed: 1 Risk: Moderate: Moderate risk from testing/treatment Medical Decision Making Level: 4 - Moderate Tobi Nascimento MD documented in this encounter [facility] 02-20-2024 Note [facility] 02-19-2024 Note HNO ID: [id number] Author: VIN CARDENAS RN Service: ? Author Type: Registered Nurse Type: Progress Notes Filed: 02/19/2024 15:00 Note Text: . [facility] 02-19-2024 History of Present illness Narrative . documented in this encounter [facility] 02-17-2024 Telephone encounter Note . [facility] 02-17-2024 Miscellaneous Notes . documented in this encounter [facility] 02-06-2024 History of Present illness Narrative Radiology Service Progress Note PATIENT NAME: Kristin Lara DATE OF SERVICE: February 06, 2024 TIME: 3:06 PM PATIENT IDENTITY VERIFICATION COMPLETED USING TWO (2) IDENTIFIERS: Name and Date of confirmed by patient verbally. FALL SCREENING: Has the patient had 2 falls in the last year or 1 fall with injury or currently using an Ambulatory Assistive Device (Walker, Cane, Wheelchair, Crutches, etc.)? No PATIENT GENDER DATA: Male PATIENT RELEVANT IMPLANT DATA REVIEWED: Yes PATIENT PRESENTS WITH AN IMPLANTABLE OR ATTACHED SELLING SPECIALIST: No RADIOLOGY DEPARTMENT: MR; Exam(s) Completed: Body: Liver (routine) PERIPHERAL IV DATA: Site assessment: Clean,Dry and Intact, Site disposition Discontinued SIGNED BY: RT Jeff(R) February 06, 2024 3:06 PM documented in this encounter [facility] 02-06-2024 Note [facility] 02-06-2024 History of Present illness Narrative Radiology Service Progress Note PATIENT NAME: Kristin Lara DATE OF SERVICE: February 06, 2024 TIME: 3:51 PM PATIENT IDENTITY VERIFICATION COMPLETED USING TWO (2) IDENTIFIERS: Name and Date of confirmed by patient verbally. FALL SCREENING: Has the patient had 2 falls in the last year or 1 fall with injury or currently using an Ambulatory Assistive Device (Walker, Cane, Wheelchair, Crutches, etc.)? No PATIENT GENDER DATA: Male PATIENT RELEVANT IMPLANT DATA REVIEWED: Yes PATIENT PRESENTS WITH AN IMPLANTABLE OR ATTACHED SELLING SPECIALIST: No RADIOLOGY DEPARTMENT: CT; Exam(s) Completed: Chest PERIPHERAL IV DATA: Not applicable SIGNED BY: RT Christina(R) February 06, 2024 3:51 PM documented in this encounter [facility] 02-06-2024 Note [facility] 02-04-2024 Telephone encounter Note Spoke with patient. He stated he doesn't remember speaking with anyone regarding his port. However, he did accept a 1:45 appointment for access. [facility] Work Phone: 02-04-2024 Miscellaneous Notes Spoke with patient. He stated he doesn't remember speaking with anyone regarding his port. However, he did accept a 1:45 appointment for access. Pt would like to use port for appt on 02/06/24 for MRI @ 2:20 please call pt to confirm time Pt has CT at 2 but only needs it for Mri documented in this encounter [facility] 02-04-2024 Telephone encounter Note Pt would like to use port for appt on 02/06/24 for MRI @ 2:20 please call pt to confirm time Pt has CT at 2 but only needs it for Mri [facility] 01-26-2024 Note [facility] 01-26-2024 History of Present illness Narrative Oncologic problem(s): 1) Locally advanced/metastatic pancreas cancer. HPI: The patient is a 73-year-old male with past medical history significant for hypertension, renal lithiasis, BSOS and GI bleed (admitted 04/16/2021 [facility] for hematemesis; previous laparotomy with wedge resection of gastric fundus and Sam fundoplication 2009 for GI bleed) and recent diagnosis of pancreas cancer. Gastric ulcer secondary to NSAID use in 2009. Recently developed jaundice. CT A/P [facility] 07/30/2023: FINDINGS: The visualized lung bases are unremarkable. The visualized portions of the heart are within normal limits. Moderate degree of the intrahepatic biliary ductal dilatation. There is dilatation of the common bile duct. It measures 1.4 cm in transverse dimension. The distal portion of the common bile duct is not well visualized. There are surgical clips in the gallbladder fossa consistent with a prior cholecystectomy. Normal spleen. I suspect a 3.5 cm x 2.6 cm mass in the head of the pancreas. There is diffuse atrophy of the pancreas. There is diffuse irregular pancreatic ductal dilatation. Correlation with ERCP is recommended to rule out obstruction of the distal portion of the common bile duct. Soft tissue fullness is seen in the region of the celiac axis. Adenopathy should be ruled out. Normal bilateral adrenal glands. Normal right kidney. Nonobstructive 7.3 mm calculus in the lower pole calyx of the left kidney. There is a moderate-sized hiatal hernia. Prior subtotal gastrectomy. Normal small intestine. There are multiple colonic diverticula consistent with diverticulosis. The appendix is visualized and appears normal. Normal abdominal aorta. Normal inferior vena cava. Normal retroperitoneum. Normal urinary bladder. The prostate measures 3.7 cm x 4.5 cm. Central calcifications are seen. Results of prior bilateral inguinal hernia repair and lower anterior abdominal wall repair with mesh. There are diffuse degenerative changes of the visualized lumbar spine. Minimal anterior listhesis of L5 and S1 with a spondylolysis of the pars interarticularis of the L5 vertebrae. IMPRESSION: Dilated intrahepatic biliary duct as well as the pancreatic duct and common bile duct. Findings suggestive of a mass in the head of the pancreas. Correlation with ERCP is recommended. The patient is status post cholecystectomy. Nonobstructive calculus in the lower pole calyx of left kidney. Status post partial gastric resection. CT pancreas 08/05/2023: IMPRESSION: 3.2 cm pancreatic head mass with vascular involvement as described. Severe biliary dilation, slightly increased from 07/30/2023 CT. 1.2 cm perihepatic node/nodule, possibly metastatic. Few additional prominent periportal nodes; attention on follow-up. MORPHOLOGIC EVALUATION: a.Location: Head /Uncinate b. Size: 2.8 x 3.2 x 3.0 cm (CC x AP x T) (2:53, 4:44) c.Density:Hypodense d. Pancreatic duct abrupt cut off :Present e. Pancreatic duct upstream dilatation: Present, measuring up to 1.6 cm (2:48). f. Biliary tree abrupt cut off:Present e. Biliary tree upstream dilatation: Severe intrahepatic and extrahepatic biliary duct dilation, slightly increased from prior. ARTERIAL EVALUATION SMA Degree of solid soft tissue contact: None Degree of increased hazy attenuation/stranding contact: < 180 degrees (4:50) Focal vessel narrowing or contour irregularity: Absent Extension to first SMA branch: Probably present CELIAC AXIS Degree of solid soft tissue contact: None Degree of increased hazy attenuation/stranding contact: > 180 degrees Focal vessel narrowing or contour irregularity: Present, focal narrowing of the distal celiac trunk (3:155) ALEX Degree of solid soft tissue contact: None Degree of increased hazy attenuation/stranding contact: > 180 degrees Focal vessel narrowing or contour irregularity: Absent Extension to celiac axis: Present Extension to bifurcation of right/left hepatic artery: Absent ARTERIAL VARIANT ANATOMY: Absent VENOUS EVALUATION MPV: Present Degree of solid soft tissue contact: <180 degrees (7:42) Degree of increased hazy attenuation/stranding contact: < 180 degrees Focal vessel narrowing or contour irregularity: Absent SMV: Absent Degree of solid soft tissue contact: None Degree of increased hazy attenuation/stranding contact: None Focal vessel narrowing or contour irregularity: Absent Extension to first draining vein: Absent Venous thrombus: No venous thrombosis. Venous collaterals: None CONTIGUOUS ORGAN INVASION: None SUSPICIOUS LYMPH NODES: Few prominent upper abdominal nodes, for example: * 0.8 cm periportal node (5:44) * 1 cm portal caval node (5: 49) LIVER LESIONS: Absent. PERITONEUM: Ascites absent. 1.2 cm node/nodule anterior to the right hepatic lobe (5:53). OTHER ABDOMINAL FINDINGS: Spleen: No mass. No splenomegaly. Calcified granulomas. Adrenals: No mass. Kidneys: 8 mm left lower pole calculus. Subcentimeter lesions too small to characterize but likely benign. No solid mass or hydronephrosis. GI tract: No dilation or wall thickening. Moderate hiatal hernia. Surgical clips at the GE junction. Normal appendix. Colonic diverticulosis. Pelvis: No mass, ascites or fluid collection. Bones/Soft Tissues: Degenerative changes. Mesh anchors along the lower anterior abdominal wall. Lower thorax: A chest CT performed will be reported separately. [employer]eles[employer] Team Leader (topogram) images: No additional findings. Underwent EGD/EUD along with ERCP on 08/06/2023. On EUS was noted to have an irregular mass in the pancreatic head. It was hypoechoic. Measured 3 cm in maximal cross-sectional diameter. Borders were poorly defined. Fine-needle biopsy was performed. 2 passes with a 22-gauge shark core biopsy needle using transduodenal approach was utilized. The celiac plexus and celiac ganglia were visualized and showed no signs of significant endosonographic abnormality. ERCP--Was found to have a single severe segmental biliary stricture in the lower third of the main bile duct and middle third of the main bile duct. It was malignant appearing. Upper third of the duct was severely dilated. Sphincterotomy was performed. Biliary tree was swept and nothing was found. A plastic stent was placed into the common bile duct. Pathology: Pancreas, head, mass, biopsy: -Adenocarcinoma Prior very active. Was dx borderline DM last year. Made an effort to lose weight--32 lbs. Was able to come off metformin. Previous therapy: 1) FOLFIRINOX. Cycle 1 was administered FOLFOX. This was secondary to intermediate metabolizer for irinotecan and Admitted to [facility] 11/26 through 12/11 for sepsis and diarrhea. C. difficile negative. Started on Metamucil and cholestyramine. Received in RBC transfusion. Had NATHAN and acidosis. Attributed to sepsis, volume depletion from diarrhea. Blood pressure meds held. Blood cultures remain negative. Echocardiogram normal. Octreotide was started. Metamucil was stopped. Blood pressure medicines including metoprolol and Norvasc were restarted when blood pressure increased. Received a total of 12 days of Zosyn and vancomycin as well as 6 days of Diflucan. Current therapy: 1) FOLFOX. Underwent ERCP. Found to have a single moderate biliary stricture in the middle third of the main bile duct. It was malignant appearing. Choledocholithiasis observed. Complete removal was accomplished by balloon extraction. Biliary tree was swept. A covered metal stent was placed. 1 x 8 cm. Presents for ongoing oncologic management. Interim history: I'm doing much better. Appetite very good. No nausea. Stools can be loose but not watery. Denies abdominal pain. Fingertips and feet tingling--improved with dose reduction oxaliplatin. PAST MEDICAL HISTORY No date: Acute gastritis without mention of hemorrhage No date: Diverticulosis of colon (without mention of hemorrhage) No date: Hernia of unspecified site of abdominal cavity without mention of obstruction or gangrene Comment: hiatal No date: Iron deficiency anemia, unspecified 08/12/2023: 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) No date: Nonalcoholic steatohepatitis (BOSS) No date: Unspecified essential hypertension Comment: Essential hypertension PAST SURGICAL HISTORY 10/2004: CHOLECYSTECTOMY Comment: laparoscopic 12/16/07: COLONOSCOPY FLX DX W/COLLJ SPEC WHEN PFRMD Comment: Extensive sigmoid diverticulosis 05/25/10: COLONOSCOPY FLX DX W/COLLJ SPEC WHEN PFRMD Comment: Extensive sigmoid diverticulosis 12/16/07: EGD TRANSORAL BIOPSY SINGLE/MULTIPLE Comment: HH, Schatzki ring,antral gastritis 05/25/10: EGD TRANSORAL BIOPSY SINGLE/MULTIPLE Comment: 02-01-08: LAPAROSCOPY SURG RPR INITIAL INGUINAL HERNIA Comment: RIGHT inguinal hernia : LAPAROSCOPY SURG RPR INITIAL INGUINAL HERNIA Comment: LEFT inguinal hernia 05/14/2011: PAST SURGICAL HISTORY OF Comment: Hernia repair 11/02/2020: REMV CATARACT EXTRACAP,INSERT LENS; Right Comment: SN60WF +16.0 D ALLERGIES Allergen Reactions Phenergan [Prometha* Anaphylaxis vital signs dropped / patient coded Current Outpatient Medications Medication Sig Potassium Bicarb-Citric Acid (K-LYTE) 25 mEq disintegrating tablet Take 1 tablet by mouth two times a day. Magnesium Chloride (SLOW-MAG) 71.5 mg TbEC Take 1 tablet by mouth two times a day. metoclopramide HCl (REGLAN) 10 mg tablet Take 1 tablet by mouth three times a day. but not within 6 hours of taking olanzapine. OLANZapine (ZYPREXA) 5 mg tablet TAKE 1 TABLET BY MOUTH ONCE DAILY AT BEDTIME BEGINNING THE EVENING OF FIRST DAY OF CHEMOTHERAPY EACH CYCLE AND TAKE FOR 4 DAYS. cholestyramine (QUESTRAN) 4 gram packet Take 1 Packet by mouth two times a day with meals. metoprolol tartrate, short acting, (LOPRESSOR) 25 mg tablet Take 1 tablet by mouth every 12 hours. lqxqoo-vxtvpbkl-zxsauxt (ZENPEP) 40,000-126,000- 168,000 unit delayed release capsule Take 2 capsules by mouth three times a day with meals. loratadine (CLARITIN) 10 mg tablet Take 10 mg by mouth as needed. amLODIPine (NORVASC) 5 mg tablet Take 1 tablet by mouth once daily. lidocaine-prilocaine (EMLA) 2.5-2.5 % cream Apply 60 minutes prior to accessing port. dexAMETHasone (DECADRON) 4 mg tablet Take 1 tablet by mouth two times a day with meals. for 3 days beginning the day after chemotherapy treatment. ondansetron (ZOFRAN) 8 mg tablet Take 1 tablet by mouth every 8 hours as needed (For chemotherapy induced nausea and vomiting.). Hold for 72 hours after each chemotherapy treatment. OLANZapine (ZYPREXA) 5 mg tablet Take 1 tablet by mouth daily at bedtime. beginning the evening of first day of chemotherapy each cycle and take for 4 days. metoclopramide HCl (REGLAN) 10 mg tablet TAKE 1 TABLET BY MOUTH THREE TIMES DAILY. DO NOT TAKE WITHIN 6 HOURS OF TAKING OLANZAPINE. iv contrast (will be provided with radiology test) CT ABD/PEL -Inject, intravenously, once for 1 dose.No IV access, insert saline lock prior to the beginning of sedation, infusion, injection of imaging exam. Discontinue saline lock post exam. If Pt. has a central line or IVAD, may access for administration according to line specific nursing protocol. Once exam is complete flush line and de-access according to line specific nursing protocol in the CT contrast administration guidelines link. enteric contrast (will be provided with radiology test) For CT ABD/PEL W IVCON Routine order Administer, As Directed One Time Only, via Oral, Rectal, both Oral and Rectal, Enteric Tube, Stoma or Indwelling Catheter, Enteric Contrast as designated per enteric contrast guidelines iv contrast (will be provided with radiology test) CT Chest W -Inject, intravenously, once for 1 dose.No IV access, insert saline lock prior to the beginning of sedation, infusion, injection of imaging exam. Discontinue saline lock post exam. If Pt. has a central line or IVAD, may access for administration according to line specific nursing protocol. Once exam is complete flush line and de-access according to line specific nursing protocol in the CT contrast administration guidelines link. No current facility-administered medications for this visit. 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 Family History Problem Relation Age of Onset Stroke Mother age 72 Diabetes Father age 90 and prostate cancer Cataract Father Prostate Cancer Father Psychiatry Sister A & W, controlled with medication Hypertension Sister Diabetes Sister A & W Diabetes Brother A & W Diabetes Brother A & W Diabetes Brother A & W Diabetes Brother A & W None Brother A & W Colon Cancer Brother Father--Prostate cancer low grade in his 60s. Lived to 90. Brother--Colon cancer-- from metastatic disease age 77. Daughter--Breast cancer age 39. Now Two years out. First cousin--Pancreas cancer (mothers are sisters). Breast cancer on 's side. ROS: Constitutional: No fever. No drenching night sweats. Neuro: No recent GO, vertigo, dizziness or imbalance. No symptoms of sensory neuropathy. HEENT: No recent change in voice, vision or hearing. Resp: No cough, wheeze of hemoptysis. No shortness of breath at rest. CVS: No exertional chest pain, PND or orthopnea. No extremity swelling/edema. No symptoms of claudication. No painful or tender varicose veins. GI: See above. : No dysuria or gross hematuria. No symptoms of bladder outlet obstruction. Endo: No hot flashes. No polyuria or polydipsia. No heat or cold intolerance. Musculoskeletal: No bone, back, joint and muscular pain. Derm: No current rash. No history of jaundice. No diffuse pruritis. Heme: No unusual bleeding and unexplained bruising. Psych: Normal mood. PHYSICAL EXAM: Vitals: Blood pressure 142/88, pulse 67, temperature 36.4 C (97.6 F), temperature source Temporal, weight 76.7 kg (169 lb), SpO2 99%. Well-appearing and in no acute distress. EYES: Sclerae are mildly icteric bilaterally. LYMPHATIC: There is no palpable cervical or supraclavicular adenopathy. RESPIRATORY: Inspiratory breath sounds are of normal intensity in all velazquez. No rales, wheezes or rhonchi CARDIOVASCULAR: Rhythm is regular. ABDOMEN: The abdomen is nondistended. No tenderness or mass. Extremities: No swelling or edema. SKIN: No rash. LABS: Latest Ref [facility] 01/26/2024 WBC 3.70 - 11.00 k/uL 18.61 (H) RBC 4.20 - 6.00 m/uL 3.29 (L) Hemoglobin 13.0 - 17.0 g/dL 9.5 (L) Hematocrit 39.0 - 51.0 % 31.9 (L) MCV 80.0 - 100.0 fL 97.0 MCH 26.0 - 34.0 pg 28.9 MCHC 30.5 - 36.0 g/dL 29.8 (L) RDW-CV 11.5 - 15.0 % 16.7 (H) Platelet Count 150 - 400 k/uL 158 MPV 9.0 - 12.7 fL 10.4 Neut% % 80.7 Abs Neut (ANC) 1.45 - 7.50 k/uL 15.01 (H) Lymph% % 9.8 Abs Lymph 1.00 - 4.00 k/uL 1.83 [place]% % 6.7 Abs [place] <0.87 k/uL 1.24 (H) Eosin% % 0.9 Abs Eosin <0.46 k/uL 0.17 Baso% % 0.6 Abs Baso <0.11 k/uL 0.11 (H) Immature Gran % % 1.3 IMMATURE GRANS (ABS) <0.10 k/uL 0.25 (H) NRBC /100 WBC 0.0 Absolute nRBC <0.01 k/uL <0.01 DTYPE Auto ASSESSMENT/PLAN: (C25.0) 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) (primary encounter diagnosis) (K83.1) Biliary obstruction Assessment: -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 -Biliary obstruction on presentation. -Suspicious mesenteric nodule anterior to the lower right lobe of the liver. Prominent upper abdominal lymph nodes. -UGT1A1 intermediate metabolizer; DPYD normal metabolizer. -Biopsy of abdominal nodule nondiagnostic. -Genetic testing negative. 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 No actionable mutation. -TB recs: --Not operative candidate. --Continue with chemotherapy. Consider radiation for local control after 12 cycles completion. --May need to have a diagnostic lap for perionteal nodule. -Hospitalized for prolonged diarrhea. Irinotecan held. -Improved on octreotide, continued PEP and omission of irinotecan. -CA 19-9 trending lower even prior to metallic stent placement. -Had radiation oncology consultation at [facility]. Plan: -Continue FOLFOX at previous dose reduction of oxaliplatin secondary to neuropathy. -MRI liver and CT chest 02/05. -Monitor CA 19-9. -Continue pancreatic enzyme replacement. -Continue monthly octreotide. -He will need ongoing magnesium replacement. -Potential exploratory laparoscopy versus radiation and/or both following 12 cycles. -Scheduled to see Dr. Nascimento 02/19. Portions of this documentation were copied and pasted from previous office visit notes in order to provide a cohesive continuity of the history. The note has been reviewed and edited and updated as necessary. I spent a total of 20 minutes on the date of the service which included preparing to see the patient, [id number] patient care, completing clinical documentation, obtaining and/or reviewing separately obtained history, performing a medically appropriate examination, counseling and educating the patient/family/caregiver, ordering medications, tests, or procedures, communicating with other HCPs (not separately reported), and communicating results to the patient/family/caregiver. Phong Aj DO documented in this encounter [facility] 01-21-2024 Telephone encounter Note Yes. Phong Aj DO [facility] 01-21-2024 Miscellaneous Notes Yes. Phong Aj DO Patient requested 9/10 date due to travel. Okay to schedule as straightback? No other providers have openings that day. documented in this encounter [facility] 01-21-2024 Telephone encounter Note Patient requested 9/10 date due to travel. Okay to schedule as straightback? No other providers have openings that day. [facility] Work Phone: 01-20-2024 Note [facility] 01-20-2024 History of Present illness Narrative Radiation Oncology - New Patient/Consult Note PATIENT NAME: Kristin Lara PATIENT REQUESTING PROVIDER: Dr. Nascimento. DIAGNOSIS: 73 yom with locally advanced pancreatic cancer, currently on FOLFIRINOX. HPI: 73 year old male who presents with above diagnosis, for an opinion regarding the role of radiation therapy in the management of the patient's disease. Final recommendations will be communicated back to the requesting physician by way of the shared medical record, or letter to requesting physician via US mail. Mr Lara is a very nice individual who was diagnosed with locally advanced pancreatic head cancer when he presented with painless jaundice in July 2023. A biopsy was done which showed pancreatic adenocarcinoma. Given several locally advanced features involving the vasculature as well as questionable mesenteric/peritoneal nodules, recommendation was to proceed with chemotherapy. He has completed 8 cycles of FOLFIRINOX chemotherapy with moderate difficulty. He is doing better now since his C. difficile has been adequately treated. He saw Dr. Nascimento earlier today. I reviewed all his imaging and pathology in detail in epic. ALLERGIES Allergen Reactions Phenergan [Prometha* Anaphylaxis vital signs dropped / patient coded Current Outpatient Medications on File Prior to Visit Medication Sig Magnesium Chloride (SLOW-MAG) 71.5 mg TbEC Take 1 tablet by mouth two times a day. metoclopramide HCl (REGLAN) 10 mg tablet Take 1 tablet by mouth three times a day. but not within 6 hours of taking olanzapine. OLANZapine (ZYPREXA) 5 mg tablet Take 1 tablet by mouth daily at bedtime. beginning the evening of first day of chemotherapy each cycle and take for 4 days. OLANZapine (ZYPREXA) 5 mg tablet TAKE 1 TABLET BY MOUTH ONCE DAILY AT BEDTIME BEGINNING THE EVENING OF FIRST DAY OF CHEMOTHERAPY EACH CYCLE AND TAKE FOR 4 DAYS. metoclopramide HCl (REGLAN) 10 mg tablet TAKE 1 TABLET BY MOUTH THREE TIMES DAILY. DO NOT TAKE WITHIN 6 HOURS OF TAKING OLANZAPINE. cholestyramine (QUESTRAN) 4 gram packet Take 1 Packet by mouth two times a day with meals. metoprolol tartrate, short acting, (LOPRESSOR) 25 mg tablet Take 1 tablet by mouth every 12 hours. wipdiu-yvhzfcwh-penyled (ZENPEP) 40,000-126,000- 168,000 unit delayed release capsule Take 2 capsules by mouth three times a day with meals. loratadine (CLARITIN) 10 mg tablet Take 10 mg by mouth as needed. amLODIPine (NORVASC) 5 mg tablet Take 1 tablet by mouth once daily. iv contrast (will be provided with radiology test) CT ABD/PEL -Inject, intravenously, once for 1 dose.No IV access, insert saline lock prior to the beginning of sedation, infusion, injection of imaging exam. Discontinue saline lock post exam. If Pt. has a central line or IVAD, may access for administration according to line specific nursing protocol. Once exam is complete flush line and de-access according to line specific nursing protocol in the CT contrast administration guidelines link. enteric contrast (will be provided with radiology test) For CT ABD/PEL W IVCON Routine order Administer, As Directed One Time Only, via Oral, Rectal, both Oral and Rectal, Enteric Tube, Stoma or Indwelling Catheter, Enteric Contrast as designated per enteric contrast guidelines iv contrast (will be provided with radiology test) CT Chest W -Inject, intravenously, once for 1 dose.No IV access, insert saline lock prior to the beginning of sedation, infusion, injection of imaging exam. Discontinue saline lock post exam. If Pt. has a central line or IVAD, may access for administration according to line specific nursing protocol. Once exam is complete flush line and de-access according to line specific nursing protocol in the CT contrast administration guidelines link. lidocaine-prilocaine (EMLA) 2.5-2.5 % cream Apply 60 minutes prior to accessing port. dexAMETHasone (DECADRON) 4 mg tablet Take 1 tablet by mouth two times a day with meals. for 3 days beginning the day after chemotherapy treatment. ondansetron (ZOFRAN) 8 mg tablet Take 1 tablet by mouth every 8 hours as needed (For chemotherapy induced nausea and vomiting.). Hold for 72 hours after each chemotherapy treatment. No current facility-administered medications on file prior to visit. PAST MEDICAL HISTORY No date: Acute gastritis without mention of hemorrhage No date: Diverticulosis of colon (without mention of hemorrhage) No date: Hernia of unspecified site of abdominal cavity without mention of obstruction or gangrene Comment: hiatal No date: Iron deficiency anemia, unspecified 08/12/2023: 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) No date: Nonalcoholic steatohepatitis (BOSS) No date: Unspecified essential hypertension Comment: Essential hypertension Prior radiation therapy, collagen vascular disease, or inflammatory bowel disease: No Any implanted or external electric devices? No PAST SURGICAL HISTORY 10/2004: CHOLECYSTECTOMY Comment: laparoscopic 12/16/07: COLONOSCOPY FLX DX W/COLLJ SPEC WHEN PFRMD Comment: Extensive sigmoid diverticulosis 05/25/10: COLONOSCOPY FLX DX W/COLLJ SPEC WHEN PFRMD Comment: Extensive sigmoid diverticulosis 12/16/07: EGD TRANSORAL BIOPSY SINGLE/MULTIPLE Comment: Diego JONES ring,antral gastritis 05/25/10: EGD TRANSORAL BIOPSY SINGLE/MULTIPLE Comment: ROBERT 02-01-08: LAPAROSCOPY SURG RPR INITIAL INGUINAL HERNIA Comment: RIGHT inguinal hernia : LAPAROSCOPY SURG RPR INITIAL INGUINAL HERNIA Comment: LEFT inguinal hernia 05/14/2011: PAST SURGICAL HISTORY OF Comment: Hernia repair 11/02/2020: REMV CATARACT EXTRACAP,INSERT LENS; Right Comment: SN60WF +16.0 D FAMILY HISTORY Problem Relation Age of Onset Stroke Mother age 72 Diabetes Father age 90 and prostate cancer Cataract Father Prostate Cancer Father Psychiatry Sister A & W, controlled with medication Hypertension Sister Diabetes Sister A & W Diabetes Brother A & W Diabetes Brother A & W Diabetes Brother A & W Diabetes Brother A & W None Brother A & W Colon Cancer Brother Social History Tobacco Use Smoking status: Never Smokeless tobacco: Never Vaping Use Vaping Use: Never used Substance Use Topics Alcohol use: No Drug use: No COMPLETE REVIEW OF SYSTEMS: As noted in HPI PHYSICAL EXAM: VS: BP 148/86 Pulse 68 Resp 18 Wt 76.7 kg (169 lb) SpO2 98% BMI 24.25 kg/m Is the patient having any pain? No 0 on a scale of 0 to 10 KPS: 70 General Appearance: Alert and oriented. No acute distress. HEENT: NCAT. Sclera anicteric. EOMI. Neck: Normal ROM. Chest: No respiratory distress. Heart: Regular rate. Abdomen: Soft. Nondistended. Musculoskeletal: No edema. Neuro: Gait normal. No focal deficits. Skin: No rashes noted Lymphatics: No palpable lymphadenopathy. RADIOLOGY/LABORATORY DATA: see HPI ASSESSMENT AND PLAN: 73 yom with locally advanced pancreatic cancer, currently on FOLFIRINOX. I discussed in detail with him the natural history of locally advanced pancreatic cancer as well as the role of chemotherapy, surgery, radiotherapy. We will discuss his case later today in tumor board as well. Will plan on maximizing chemotherapy and will recommend SBRT once he has completed his chemotherapy course. Happy to see him back at any point to initiate radiotherapy. Maximiliano Zaragoza MD Staff Physician Department of Radiation Oncology cc: MD B[facility] Cer[facility] [place] [phone] Dr. Tobi Nascimento, [facility] Dr. Phong Aj, [facility] documented in this encounter [facility] 01-15-2024 Telephone encounter Note Left VM for patient to cont chemotherapy and obtain mri liver and thenfollow up with dr. Nascimento. [facility] Work Phone: 01-15-2024 Miscellaneous Notes Left VM for patient to cont chemotherapy and obtain mri liver and thenfollow up with dr. Nascimento. Pt's Yary is calling to get an update on the discussion from Tumor Board, pt saw Dr. Nascimento on 01/05 and was told they'd get a call. Contact info: [phone] documented in this encounter [facility] 01-15-2024 Telephone encounter Note Pt's Yary is calling to get an update on the discussion from Tumor Board, pt saw Dr. Nascimento on 01/05 and was told they'd get a call. Contact info: [phone] [facility] 01-14-2024 Note [facility] 01-14-2024 History of Present illness Narrative CASE [id number] ([id number]): Tissue and Body Fluid Analysis from Patients with Cancer and Other Risk- Associated Lesions Patient seen in clinic for informed consent of the above mentioned protocol. Patient agrees to participate in the above mentioned research study. The patient has signed a copy of the informed consent. Patient has contact information for the study team and Dr. Phong Aj D.O. . See consent note in Epic. Patient ineligible for a research blood draw and only consents to previously obtained tissue. Adrian Torres RN documented in this encounter [facility] 01-13-2024 Note [facility] 01-13-2024 History of Present illness Narrative Oncologic problem(s): 1) Locally advanced/metastatic pancreas cancer. HPI: The patient is a 73-year-old male with past medical history significant for hypertension, renal lithiasis, BOSS and GI bleed (admitted 04/16/2021 [facility] for hematemesis; previous laparotomy with wedge resection of gastric fundus and Sam fundoplication 2009 for GI bleed) and recent diagnosis of pancreas cancer. Gastric ulcer secondary to NSAID use in 2009. Recently developed jaundice. CT A/P [facility] 07/30/2023: FINDINGS: The visualized lung bases are unremarkable. The visualized portions of the heart are within normal limits. Moderate degree of the intrahepatic biliary ductal dilatation. There is dilatation of the common bile duct. It measures 1.4 cm in transverse dimension. The distal portion of the common bile duct is not well visualized. There are surgical clips in the gallbladder fossa consistent with a prior cholecystectomy. Normal spleen. I suspect a 3.5 cm x 2.6 cm mass in the head of the pancreas. There is diffuse atrophy of the pancreas. There is diffuse irregular pancreatic ductal dilatation. Correlation with ERCP is recommended to rule out obstruction of the distal portion of the common bile duct. Soft tissue fullness is seen in the region of the celiac axis. Adenopathy should be ruled out. Normal bilateral adrenal glands. Normal right kidney. Nonobstructive 7.3 mm calculus in the lower pole calyx of the left kidney. There is a moderate-sized hiatal hernia. Prior subtotal gastrectomy. Normal small intestine. There are multiple colonic diverticula consistent with diverticulosis. The appendix is visualized and appears normal. Normal abdominal aorta. Normal inferior vena cava. Normal retroperitoneum. Normal urinary bladder. The prostate measures 3.7 cm x 4.5 cm. Central calcifications are seen. Results of prior bilateral inguinal hernia repair and lower anterior abdominal wall repair with mesh. There are diffuse degenerative changes of the visualized lumbar spine. Minimal anterior listhesis of L5 and S1 with a spondylolysis of the pars interarticularis of the L5 vertebrae. IMPRESSION: Dilated intrahepatic biliary duct as well as the pancreatic duct and common bile duct. Findings suggestive of a mass in the head of the pancreas. Correlation with ERCP is recommended. The patient is status post cholecystectomy. Nonobstructive calculus in the lower pole calyx of left kidney. Status post partial gastric resection. CT pancreas 08/05/2023: IMPRESSION: 3.2 cm pancreatic head mass with vascular involvement as described. Severe biliary dilation, slightly increased from 07/30/2023 CT. 1.2 cm perihepatic node/nodule, possibly metastatic. Few additional prominent periportal nodes; attention on follow-up. MORPHOLOGIC EVALUATION: a.Location: Head /Uncinate b. Size: 2.8 x 3.2 x 3.0 cm (CC x AP x T) (2:53, 4:44) c.Density:Hypodense d. Pancreatic duct abrupt cut off :Present e. Pancreatic duct upstream dilatation: Present, measuring up to 1.6 cm (2:48). f. Biliary tree abrupt cut off:Present e. Biliary tree upstream dilatation: Severe intrahepatic and extrahepatic biliary duct dilation, slightly increased from prior. ARTERIAL EVALUATION SMA Degree of solid soft tissue contact: None Degree of increased hazy attenuation/stranding contact: < 180 degrees (4:50) Focal vessel narrowing or contour irregularity: Absent Extension to first SMA branch: Probably present CELIAC AXIS Degree of solid soft tissue contact: None Degree of increased hazy attenuation/stranding contact: > 180 degrees Focal vessel narrowing or contour irregularity: Present, focal narrowing of the distal celiac trunk (3:155) ALEX Degree of solid soft tissue contact: None Degree of increased hazy attenuation/stranding contact: > 180 degrees Focal vessel narrowing or contour irregularity: Absent Extension to celiac axis: Present Extension to bifurcation of right/left hepatic artery: Absent ARTERIAL VARIANT ANATOMY: Absent VENOUS EVALUATION MPV: Present Degree of solid soft tissue contact: <180 degrees (7:42) Degree of increased hazy attenuation/stranding contact: < 180 degrees Focal vessel narrowing or contour irregularity: Absent SMV: Absent Degree of solid soft tissue contact: None Degree of increased hazy attenuation/stranding contact: None Focal vessel narrowing or contour irregularity: Absent Extension to first draining vein: Absent Venous thrombus: No venous thrombosis. Venous collaterals: None CONTIGUOUS ORGAN INVASION: None SUSPICIOUS LYMPH NODES: Few prominent upper abdominal nodes, for example: * 0.8 cm periportal node (5:44) * 1 cm portal caval node (5: 49) LIVER LESIONS: Absent. PERITONEUM: Ascites absent. 1.2 cm node/nodule anterior to the right hepatic lobe (5:53). OTHER ABDOMINAL FINDINGS: Spleen: No mass. No splenomegaly. Calcified granulomas. Adrenals: No mass. Kidneys: 8 mm left lower pole calculus. Subcentimeter lesions too small to characterize but likely benign. No solid mass or hydronephrosis. GI tract: No dilation or wall thickening. Moderate hiatal hernia. Surgical clips at the GE junction. Normal appendix. Colonic diverticulosis. Pelvis: No mass, ascites or fluid collection. Bones/Soft Tissues: Degenerative changes. Mesh anchors along the lower anterior abdominal wall. Lower thorax: A chest CT performed will be reported separately. Telesales Team Leader (topogram) images: No additional findings. Underwent EGD/EUD along with ERCP on 08/06/2023. On EUS was noted to have an irregular mass in the pancreatic head. It was hypoechoic. Measured 3 cm in maximal cross-sectional diameter. Borders were poorly defined. Fine-needle biopsy was performed. 2 passes with a 22-gauge shark core biopsy needle using transduodenal approach was utilized. The celiac plexus and celiac ganglia were visualized and showed no signs of significant endosonographic abnormality. ERCP--Was found to have a single severe segmental biliary stricture in the lower third of the main bile duct and middle third of the main bile duct. It was malignant appearing. Upper third of the duct was severely dilated. Sphincterotomy was performed. Biliary tree was swept and nothing was found. A plastic stent was placed into the common bile duct. Pathology: Pancreas, head, mass, biopsy: -Adenocarcinoma Prior very active. Was dx borderline DM last year. Made an effort to lose weight--32 lbs. Was able to come off metformin. Previous therapy: 1) FOLFIRINOX. Cycle 1 was administered FOLFOX. This was secondary to intermediate metabolizer for irinotecan and Admitted to [facility] 11/26 through 12/11 for sepsis and diarrhea. C. difficile negative. Started on Metamucil and cholestyramine. Received in RBC transfusion. Had NATHAN and acidosis. Attributed to sepsis, volume depletion from diarrhea. Blood pressure meds held. Blood cultures remain negative. Echocardiogram normal. Octreotide was started. Metamucil was stopped. Blood pressure medicines including metoprolol and Norvasc were restarted when blood pressure increased. Received a total of 12 days of Zosyn and vancomycin as well as 6 days of Diflucan. Current therapy: 1) FOLFOX. Presents for ongoing oncologic management. Interim history: Underwent ERCP. Found to have a single moderate biliary stricture in the middle third of the main bile duct. It was malignant appearing. Choledocholithiasis observed. Complete removal was accomplished by balloon extraction. Biliary tree was swept. A covered metal stent was placed. 1 x 8 cm. Had cycle off. 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 Appetite increased. Weight up a few pounds. No nausea. Stools can be loose but not watery. Averaging about 3-5 BMs/day. Typically small amount. Denies abdominal pain. Fingertips and feet tingling. Some trouble with buttons and opening small baggies. PAST MEDICAL HISTORY No date: Acute gastritis without mention of hemorrhage No date: Diverticulosis of colon (without mention of hemorrhage) No date: Hernia of unspecified site of abdominal cavity without mention of obstruction or gangrene Comment: hiatal No date: Iron deficiency anemia, unspecified 08/12/2023: 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) No date: Nonalcoholic steatohepatitis (BOSS) No date: Unspecified essential hypertension Comment: Essential hypertension PAST SURGICAL HISTORY 10/2004: CHOLECYSTECTOMY Comment: laparoscopic 12/16/07: COLONOSCOPY FLX DX W/COLLJ SPEC WHEN PFRMD Comment: Extensive sigmoid diverticulosis 05/25/10: COLONOSCOPY FLX DX W/COLLJ SPEC WHEN PFRMD Comment: Extensive sigmoid diverticulosis 12/16/07: EGD TRANSORAL BIOPSY SINGLE/MULTIPLE Comment: Diego JONES ring,antral gastritis 05/25/10: EGD TRANSORAL BIOPSY SINGLE/MULTIPLE Comment: ROBERT 02-01-08: LAPAROSCOPY SURG RPR INITIAL INGUINAL HERNIA Comment: RIGHT inguinal hernia 8-25-0/8: LAPAROSCOPY SURG RPR INITIAL INGUINAL HERNIA Comment: LEFT inguinal hernia 05/14/2011: PAST SURGICAL HISTORY OF Comment: Hernia repair 11/02/2020: REMV CATARACT EXTRACAP,INSERT LENS; Right Comment: SN60WF +16.0 D ALLERGIES Allergen Reactions Phenergan [Prometha* Anaphylaxis vital signs dropped / patient coded Current Outpatient Medications Medication Sig Magnesium Chloride (SLOW-MAG) 71.5 mg TbEC Take 1 tablet by mouth two times a day. metoclopramide HCl (REGLAN) 10 mg tablet Take 1 tablet by mouth three times a day. but not within 6 hours of taking olanzapine. OLANZapine (ZYPREXA) 5 mg tablet TAKE 1 TABLET BY MOUTH ONCE DAILY AT BEDTIME BEGINNING THE EVENING OF FIRST DAY OF CHEMOTHERAPY EACH CYCLE AND TAKE FOR 4 DAYS. cholestyramine (QUESTRAN) 4 gram packet Take 1 Packet by mouth two times a day with meals. metoprolol tartrate, short acting, (LOPRESSOR) 25 mg tablet Take 1 tablet by mouth every 12 hours. Potassium Bicarb-Citric Acid (K-LYTE) 25 mEq disintegrating tablet Take 1 tablet by mouth two times a day. pkhdtg-ryygdafv-opxpasu (ZENPEP) 40,000-126,000- 168,000 unit delayed release capsule Take 2 capsules by mouth three times a day with meals. loratadine (CLARITIN) 10 mg tablet Take 10 mg by mouth as needed. amLODIPine (NORVASC) 5 mg tablet Take 1 tablet by mouth once daily. lidocaine-prilocaine (EMLA) 2.5-2.5 % cream Apply 60 minutes prior to accessing port. dexAMETHasone (DECADRON) 4 mg tablet Take 1 tablet by mouth two times a day with meals. for 3 days beginning the day after chemotherapy treatment. OLANZapine (ZYPREXA) 5 mg tablet Take 1 tablet by mouth daily at bedtime. beginning the evening of first day of chemotherapy each cycle and take for 4 days. metoclopramide HCl (REGLAN) 10 mg tablet TAKE 1 TABLET BY MOUTH THREE TIMES DAILY. DO NOT TAKE WITHIN 6 HOURS OF TAKING OLANZAPINE. iv contrast (will be provided with radiology test) CT ABD/PEL -Inject, intravenously, once for 1 dose.No IV access, insert saline lock prior to the beginning of sedation, infusion, injection of imaging exam. Discontinue saline lock post exam. If Pt. has a central line or IVAD, may access for administration according to line specific nursing protocol. Once exam is complete flush line and de-access according to line specific nursing protocol in the CT contrast administration guidelines link. enteric contrast (will be provided with radiology test) For CT ABD/PEL W IVCON Routine order Administer, As Directed One Time Only, via Oral, Rectal, both Oral and Rectal, Enteric Tube, Stoma or Indwelling Catheter, Enteric Contrast as designated per enteric contrast guidelines iv contrast (will be provided with radiology test) CT Chest W -Inject, intravenously, once for 1 dose.No IV access, insert saline lock prior to the beginning of sedation, infusion, injection of imaging exam. Discontinue saline lock post exam. If Pt. has a central line or IVAD, may access for administration according to line specific nursing protocol. Once exam is complete flush line and de-access according to line specific nursing protocol in the CT contrast administration guidelines link. ondansetron (ZOFRAN) 8 mg tablet Take 1 tablet by mouth every 8 hours as needed (For chemotherapy induced nausea and vomiting.). Hold for 72 hours after each chemotherapy treatment. No current facility-administered medications for this visit. 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 Family History Problem Relation Age of Onset Stroke Mother age 72 Diabetes Father age 90 and prostate cancer Cataract Father Prostate Cancer Father Psychiatry Sister A & W, controlled with medication Hypertension Sister Diabetes Sister A & W Diabetes Brother A & W Diabetes Brother A & W Diabetes Brother A & W Diabetes Brother A & W None Brother A & W Colon Cancer Brother Father--Prostate cancer low grade in his 60s. Lived to 90. Brother--Colon cancer-- from metastatic disease age 77. Daughter--Breast cancer age 39. Now Two years out. First cousin--Pancreas cancer (mothers are sisters). Breast cancer on 's side. ROS: Constitutional: No fever. No drenching night sweats. Neuro: No recent GO, vertigo, dizziness or imbalance. No symptoms of sensory neuropathy. HEENT: No recent change in voice, vision or hearing. Resp: No cough, wheeze of hemoptysis. No shortness of breath at rest. CVS: No exertional chest pain, PND or orthopnea. No extremity swelling/edema. No symptoms of claudication. No painful or tender varicose veins. GI: See above. : No dysuria or gross hematuria. No symptoms of bladder outlet obstruction. Endo: No hot flashes. No polyuria or polydipsia. No heat or cold intolerance. Musculoskeletal: No bone, back, joint and muscular pain. Derm: No current rash. No history of jaundice. No diffuse pruritis. Heme: No unusual bleeding and unexplained bruising. Psych: Normal mood. PHYSICAL EXAM: Vitals: Blood pressure 142/82, pulse 69, temperature 36.7 C (98.1 F), weight 78 kg (172 lb), SpO2 98%. Well-appearing and in no acute distress. EYES: Sclerae are mildly icteric bilaterally. LYMPHATIC: There is no palpable cervical or supraclavicular adenopathy. RESPIRATORY: Inspiratory breath sounds are of normal intensity in all velazquez. No rales, wheezes or rhonchi CARDIOVASCULAR: Rhythm is regular. ABDOMEN: The abdomen is nondistended. No tenderness or mass. Extremities: No swelling or edema. SKIN: No rash. 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 -Biliary obstruction on presentation. -Suspicious mesenteric nodule anterior to the lower right lobe of the liver. Prominent upper abdominal lymph nodes. -UGT 1A1 intermediate metabolizer; DPYD normal metabolizer. -Biopsy of abdominal nodule nondiagnostic. -Genetic testing negative. 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 No actionable mutation. -TB recs: --Not operative candidate. --Continue with chemotherapy. Consider radiation for local control after 12 cycles completion. --May need to have a diagnostic lap for perionteal nodule. -Hospitalized for prolonged diarrhea. Irinotecan held. -Improved on octreotide, continued PEP and omission of irinotecan. -Reviewed the results and images of the CT scans from several weeks ago. Compared those to prior. Vague mass in the right lobe of the liver appears stable, but we discussed tumor board's recommendation for MRI to further clarify. There was no mention of the stent that had migrated into the small bowel. Reviewed lung CTs carefully. May be more of a solid coalescing nodule very low in the left lung. -CA 19-9 trending lower even prior to metallic stent placement. -Had radiation oncology consultation at [facility]. 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 -MRI liver. -Monitor CA 19-9. -Continue pancreatic enzyme replacement. -Continue monthly octreotide. -Refilled potassium with bicarbonate. -He will need ongoing magnesium replacement. -Potential exploratory laparoscopy versus radiation and/or both following 12 cycles. Portions of this documentation were copied and pasted from previous office visit notes in order to provide a cohesive continuity of the history. The note has been reviewed and edited and updated as necessary. I spent a total of 35 minutes on the date of the service which included preparing to see the patient, [id number] patient care, completing clinical documentation, obtaining and/or reviewing separately obtained history, performing a medically appropriate examination, counseling and educating the patient/family/caregiver, ordering medications, tests, or procedures, communicating with other HCPs (not separately reported), and communicating results to the patient/family/caregiver. Phong Aj DO documented in this encounter [facility] 01-13-2024 Nurse Note Est. Pt. Discuss recent labs, poss tx tomorrow. Pended refill for potassium if Dr. Aj wants to continue. Nichole Randall LPN [facility] 01-13-2024 Nurse Note Est. Pt. Discuss recent labs, poss tx tomorrow. Pended refill for potassium if Dr. Aj wants to continue. Nichole Randall LPN documented in this encounter [facility] 01-06-2024 Note [facility] 01-06-2024 Nurse Note AMBULATORY PATIENT EDUCATION NOTE TOPIC: GI PROCEDURES: Endoscopic Retrograde CholangioPancreatography(ERCP) with or without biopsy,stenting,dilation and/or treatment READINESS TO LEARN INSTRUCTION PROVIDED TO: Patient, readness to learn accessed prior to procedure COGNITIVE ABILITY: Alert and oriented PTED MOTIVATION TO LEARN: Eager FAMILY SUPPORT: High - Very involved in pt care IPATIENT LEARNS BEST BY: Individual Instruction FACTORS AFFECTING LEARNING: None PHYSICAL LIMITATIONS AFFECTING LEARNING: None LEARNING RESPONSE METHOD OF INSTRUCTION: Individual instruction PATIENT / FAMILY RESPONSE: Verbalizes understanding of: WORSENING CONDITION-Signs and symptoms of a worsening condition that warrant a call to the physician FOLLOW-UP PLAN: Patient instructed to call with any further issues SUPPLEMENTAL MATERIAL: Procedure Discharge Instructions REFERRAL (RECOMMENDATION): None Electronically Signed By: Robby Hernandez RN [facility] 01-06-2024 Nurse Note AMBULATORY PATIENT EDUCATION NOTE TOPIC: GI PROCEDURES: Endoscopic Retrograde CholangioPancreatography(ERCP) with or without biopsy,stenting,dilation and/or treatment READINESS TO LEARN INSTRUCTION PROVIDED TO: Patient, readness to learn accessed prior to procedure COGNITIVE ABILITY: Alert and oriented PTED MOTIVATION TO LEARN: Eager FAMILY SUPPORT: High - Very involved in pt care IPATIENT LEARNS BEST BY: Individual Instruction FACTORS AFFECTING LEARNING: None PHYSICAL LIMITATIONS AFFECTING LEARNING: None LEARNING RESPONSE METHOD OF INSTRUCTION: Individual instruction PATIENT / FAMILY RESPONSE: Verbalizes understanding of: WORSENING CONDITION-Signs and symptoms of a worsening condition that warrant a call to the physician FOLLOW-UP PLAN: Patient instructed to call with any further issues SUPPLEMENTAL MATERIAL: Procedure Discharge Instructions REFERRAL (RECOMMENDATION): None Electronically Signed By: Robby Hernandez RN PRE OP LEARNING ASSESSMENT PROCEDURE/SURGERY: GI PROCEDURES: ERCP READINESS TO LEARN COGNITIVE ABILITY: Alert and oriented MOTIVATION TO LEARN: Eager Interested FAMILY SUPPORT: High - Very involved in pt care PATIENT LEARNS BEST BY: Individual Instruction Verbal Instruction FACTORS AFFECTING LEARNING: None PHYSICAL LIMITATIONS AFFECTING LEARNING: None Electronically Signed By: Renetta Mccall RN In Department: GASTROENTEROLOGY documented in this encounter [facility] 01-06-2024 Note Q3 Patient Name: Kristin Lara Procedure Date: 01/06/2024 11:00 AM Date of : 1950 Admit Type: Outpatient Age: 73 Gender: Male Note Status: Finalized Attending MD: Delroy Cuevas MD, [id number] Procedure: ERCP Indications: Malignant tumor of the head of pancreas, Biliary stricture Providers: Delroy Cuevas MD, Binu Villanueva MD (Fellow) Patient Profile: This is a 73 year old male. Refer to note in patient chart for documentation of history and physical. Referring Physician: Tobi Nascimento (Referring MD) Medicines: General Anesthesia Complications: No immediate complications. Estimated blood loss: None Requesting Provider: Procedure: Pre-Anesthesia Assessment: - Prior to the procedure, a History and Physical was performed, and patient medications and allergies were reviewed. The patient's tolerance of previous anesthesia was also reviewed. The risks and benefits of the procedure and the sedation options and risks were discussed with the patient. All questions were answered, and informed consent was obtained. Prior Anticoagulants: The patient has taken no anticoagulant or antiplatelet agents. ASA Grade Assessment: III - A patient with severe systemic disease. After reviewing the risks and benefits, the patient was deemed in satisfactory condition to undergo the procedure. After obtaining informed consent, the scope was passed under direct vision. Throughout the procedure, the patient's blood pressure, pulse, and oxygen saturations were monitored continuously. The Duodenoscope was introduced through the mouth, and advanced to the duodenum and used to inject contrast into the bile duct. The ERCP was accomplished without difficulty. The patient tolerated the procedure well. Moderate Sedation: General anesthesia was administered by the anesthesia team. Findings: The pm technician film was normal. A biliary sphincterotomy had been performed. The sphincterotomy appeared open. The bile duct was deeply cannulated with the 8.5 mm balloon. Contrast was injected. I personally interpreted the bile duct images. Ductal flow of contrast was adequate. Image quality was adequate. Contrast extended to the entire biliary tree. The middle third of the main bile duct contained a single moderate stenosis 5 mm in length. To discover objects, the biliary tree was swept with an 8.5 mm balloon starting at the upper third of the main bile duct. A few stones were removed. No stones remained. One 10 mm by 8 cm covered metal stent was placed 6 cm into the common bile duct. Bile flowed through the stent. The stent was in good position. Impression: - Prior biliary sphincterotomy appeared open. - A single moderate biliary stricture was found in the middle third of the main bile duct. The stricture was malignant appearing. - Choledocholithiasis was found. Complete removal was accomplished by balloon extraction. - The biliary tree was swept. - One covered metal stent viabil 10 mm x 8 cm was placed into the common bile duct. Estimated Blood Loss: Estimated blood loss: none. Recommendation: - Discharge patient to home. - Patient has a contact number available for emergencies. The signs and symptoms of potential delayed complications were discussed with the patient. Return to normal activities tomorrow. Written discharge instructions were provided to the patient. - Resume previous diet. - Continue present medications. - Return to referring physician as previously scheduled. - Repeat ERCP in 6 months to exchange stent. Procedure Code(s): --- Professional --- 19589 [id number] Diagnosis Code(s): --- Professional --- K80.51 C25.0 CPT copyri (more content not included)... [facility] 01-06-2024 Note [facility] 01-06-2024 History and physical note HISTORY AND PHYSICAL Kristin Lara, 73 year old male Current history and physical on file: No Is a new History and Physical required for today's visit? Yes Indication for procedure: Stricture PROCEDURE(S) SCHEDULED FOR: ERCP (Endoscopic Retrograde CholangioPancreatography with or without biopsy, stenting, dilation, cholangioscopy and/or treatment, based on clinical findings. BASELINE BEHAVIOR: Calm BASELINE ORIENTATION: A & O x3 All medications and allergies reviewed: Yes Skin Assessment: Warm dry mucus membranes pink Airway/Respiratory Assessment: Airway: visualization of the uvula- Yes Mouth: opening greater than 2 fingerbreadths- Yes Neck: full range of motion- Yes Breath sounds clear/equal- Yes Cardiac Assessment: Regular rate and rhythm without murmur Abdominal Assessment: Abdomen soft, non-tender, no masses or organomegaly. Sedation Plan: MAC Additional Comments: None Binu Villanueva MD [facility] Work Phone: 01-06-2024 History and physical note HISTORY AND PHYSICAL Kristin Lara, 73 year old male Current history and physical on file: No Is a new History and Physical required for today's visit? Yes Indication for procedure: Stricture PROCEDURE(S) SCHEDULED FOR: ERCP (Endoscopic Retrograde CholangioPancreatography with or without biopsy, stenting, dilation, cholangioscopy and/or treatment, based on clinical findings. BASELINE BEHAVIOR: Calm BASELINE ORIENTATION: A & O x3 All medications and allergies reviewed: Yes Skin Assessment: Warm dry mucus membranes pink Airway/Respiratory Assessment: Airway: visualization of the uvula- Yes Mouth: opening greater than 2 fingerbreadths- Yes Neck: full range of motion- Yes Breath sounds clear/equal- Yes Cardiac Assessment: Regular rate and rhythm without murmur Abdominal Assessment: Abdomen soft, non-tender, no masses or organomegaly. Sedation Plan: MAC Additional Comments: None Binu Villanueva MD documented in this encounter [facility] 01-06-2024 Nurse Note PRE OP LEARNING ASSESSMENT PROCEDURE/SURGERY: GI PROCEDURES: ERCP READINESS TO LEARN COGNITIVE ABILITY: Alert and oriented MOTIVATION TO LEARN: Eager Interested FAMILY SUPPORT: High - Very involved in pt care PATIENT LEARNS BEST BY: Individual Instruction Verbal Instruction FACTORS AFFECTING LEARNING: None PHYSICAL LIMITATIONS AFFECTING LEARNING: None Electronically Signed By: Renetta Mccall RN In Department: GASTROENTEROLOGY [facility] 01-06-2024 Note [facility] 01-06-2024 History of Present illness Narrative [facility] SURGERY CONSULT HISTORY AND PHYSICAL ASSESSMENT AND PLAN: Kristin Lara is a 73 year old male diagnosed with locally advanced pancreatic adenocarcinoma in 07/2023 who presents for re-evaulation after FOLFIRINOX. Recent imaging with concerns for disease progression involving liver. - To present at tumor board today - Likely MRI liver to better evaluate liver lesions - ERCP today to reposition/replace CBD stent - Will meet with radiotion oncology today HPI: This is a 73 year old male who presents for follow up of PDAC of the pancreatic head. He presented with painless jaundice 07/2023, 3.5 x 2.6 cm pancreatic mass with double duct sign. Biopsy was consisistent with pancreatic adenocarcinoma. On presentation, the tumor demonstrated >180 abuttment with ALEX with extension to celiac axis. There were also questionable mesenteric/peritoneal nodules. He was presented at tumor board 11/11/23 and determined not to be an operative candidate. He was recommended for FOLFIRINOX x 12 cycles, with possible subsequent RT. He presents today for follow up after completing FOLFIRINOX x 8 cycles. Patient was recently admitted in 11/2023 for hypotension, suspected sepsis, and diarrhea. Blood cultures were negative, as was C.diff PCR. He was started on octreotide. Patient notes that his diarrhea has significantly improved with octreotide and ZenPep. He endorses a normal appetite and has gained a few pounds. He continues to deny any abdominal pain. Follow up CT A/P from 12/24 redemonstrated similar appearance of the pancreatic mass, redemonstrated peritoneal implant, and a new possible R lobe liver lesion. CT chest was negative for evidence of thoracic metastasis. Of note, patient's common hepatic duct was 1.1 cm on 12/24 CT scan. Most recent LFTs showed mildly elevated AlkPhos but no hyperbilirubinemia. PAST MEDICAL HISTORY: PAST MEDICAL HISTORY Diagnosis Date Acute gastritis without mention of hemorrhage Diverticulosis of colon (without mention of hemorrhage) Hernia of unspecified site of abdominal cavity without mention of obstruction or gangrene hiatal Iron deficiency anemia, unspecified 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) 08/12/2023 Nonalcoholic steatohepatitis (BOSS) Unspecified essential hypertension Essential hypertension PAST SURGICAL HISTORY: PAST SURGICAL HISTORY Procedure Laterality Date CHOLECYSTECTOMY 10/2004 laparoscopic COLONOSCOPY FLX DX W/COLLJ SPEC WHEN PFRMD 12/16/07 Extensive sigmoid diverticulosis COLONOSCOPY FLX DX W/COLLJ SPEC WHEN PFRMD 05/25/10 Extensive sigmoid diverticulosis EGD TRANSORAL BIOPSY SINGLE/MULTIPLE 12/16/07 HH, Schatzki ring,antral gastritis EGD TRANSORAL BIOPSY SINGLE/MULTIPLE 05/25/10 HH LAPAROSCOPY SURG RPR INITIAL INGUINAL HERNIA 02-01-08 RIGHT inguinal hernia LAPAROSCOPY SURG RPR INITIAL INGUINAL HERNIA 8-25-0/8 LEFT inguinal hernia PAST SURGICAL HISTORY OF 05/14/2011 Hernia repair REMV CATARACT EXTRACAP,INSERT LENS Right 11/02/2020 [id number] +16.0 D FAMILY HISTORY: FAMILY HISTORY Problem Relation Age of Onset Stroke Mother age 72 Diabetes Father age 90 and prostate cancer Cataract Father Prostate Cancer Father Psychiatry Sister A & W, controlled with medication Hypertension Sister Diabetes Sister A & W Diabetes Brother A & W Diabetes Brother A & W Diabetes Brother A & W Diabetes Brother A & W None Brother A & W Colon Cancer Brother SOCIAL HISTORY: Social History Tobacco Use Smoking status: Never Smokeless tobacco: Never Vaping Use Vaping Use: Never used Substance Use Topics Alcohol use: No Drug use: No MEDICATIONS: Prior to Admission Medications: Magnesium Chloride (SLOW-MAG) 71.5 mg TbEC Take 1 tablet by mouth two times a day. metoclopramide HCl (REGLAN) 10 mg tablet Take 1 tablet by mouth three times a day. but not within 6 hours of taking olanzapine. OLANZapine (ZYPREXA) 5 mg tablet Take 1 tablet by mouth daily at bedtime. beginning the evening of first day of chemotherapy each cycle and take for 4 days. OLANZapine (ZYPREXA) 5 mg tablet TAKE 1 TABLET BY MOUTH ONCE DAILY AT BEDTIME BEGINNING THE EVENING OF FIRST DAY OF CHEMOTHERAPY EACH CYCLE AND TAKE FOR 4 DAYS. metoclopramide HCl (REGLAN) 10 mg tablet TAKE 1 TABLET BY MOUTH THREE TIMES DAILY. DO NOT TAKE WITHIN 6 HOURS OF TAKING OLANZAPINE. cholestyramine (QUESTRAN) 4 gram packet Take 1 Packet by mouth two times a day with meals. metoprolol tartrate, short acting, (LOPRESSOR) 25 mg tablet Take 1 tablet by mouth every 12 hours. Potassium Bicarb-Citric Acid (K-LYTE) 25 mEq disintegrating tablet Take 1 tablet by mouth two times a day. octreotide (SANDOSTATIN) 100 mcg/mL soln Inject 1 mL subcutaneously every 8 hours. pwousn-tprgssbd-fokgiap (ZENPEP) 40,000-126,000- 168,000 unit delayed release capsule Take 2 capsules by mouth three times a day with meals. loratadine (CLARITIN) 10 mg tablet Take 10 mg by mouth as needed. amLODIPine (NORVASC) 5 mg tablet Take 1 tablet by mouth once daily. iv contrast (will be provided with radiology test) CT ABD/PEL -Inject, intravenously, once for 1 dose.No IV access, insert saline lock prior to the beginning of sedation, infusion, injection of imaging exam. Discontinue saline lock post exam. If Pt. has a central line or IVAD, may access for administration according to line specific nursing protocol. Once exam is complete flush line and de-access according to line specific nursing protocol in the CT contrast administration guidelines link. enteric contrast (will be provided with radiology test) For CT ABD/PEL W IVCON Routine order Administer, As Directed One Time Only, via Oral, Rectal, both Oral and Rectal, Enteric Tube, Stoma or Indwelling Catheter, Enteric Contrast as designated per enteric contrast guidelines iv contrast (will be provided with radiology test) CT Chest W -Inject, intravenously, once for 1 dose.No IV access, insert saline lock prior to the beginning of sedation, infusion, injection of imaging exam. Discontinue saline lock post exam. If Pt. has a central line or IVAD, may access for administration according to line specific nursing protocol. Once exam is complete flush line and de-access according to line specific nursing protocol in the CT contrast administration guidelines link. lidocaine-prilocaine (EMLA) 2.5-2.5 % cream Apply 60 minutes prior to accessing port. dexAMETHasone (DECADRON) 4 mg tablet Take 1 tablet by mouth two times a day with meals. for 3 days beginning the day after chemotherapy treatment. ondansetron (ZOFRAN) 8 mg tablet Take 1 tablet by mouth every 8 hours as needed (For chemotherapy induced nausea and vomiting.). Hold for 72 hours after each chemotherapy treatment. No current facility-administered medications for this visit. ALLERGIES: ALLERGIES Allergen Reactions Phenergan [Prometha* Anaphylaxis vital signs dropped / patient coded COMPLETE REVIEW OF SYSTEMS: GENERAL: No weight loss, malaise or fevers RESPIRATORY: Negative for cough, wheezing or shortness of breath. CARDIOVASCULAR: Negative for chest pain, leg swelling or palpitations. GI: Negative for abdominal discomfort, blood in stools or black stools or change in bowel habits MUSCULOSKELETAL: Negative for joint pain or swelling, back pain or muscle pain. SKIN: Negative for lesions, rash, and itching. HEMATOLOGY/LYMPHOLOGY Negative for prolonged bleeding, bruising easily or swollen nodes. ENDOCRINE: Negative for cold or heat intolerance, polyuria, polydipsia and goiter. PHYSICAL EXAM: BP 149/89 (BP Site: Left Arm, BP Position: Sitting, BP Cuff Size: Large Adult) Pulse 66 Temp 36.4 C (97.5 F) (Temporal) Resp 18 Wt 77 kg (169 lb 12.1 oz) SpO2 100% BMI 24.36 kg/m General: Well developed and well nourished appearance. No acute distress. Skin: No rash on chest, arms or legs. Warm, dry. Head/Eyes: Sclera clear, normal conjunctiva. EOMI. Lungs: Normal respiratory effort on room air Heart: Regular rate Abdomen: Soft abdomen, nontender, nondistended . Neurologic/Psychiatric: Oriented to person, place, time. Normal affect. No gross focal neurologic deficits. SIGNATURE: Giselle Garcia MD DATE of SERVICE: 01/06/2024 TIME of SERVICE: 9:01 AM [facility] STAFF PHYSICIAN NOTE OF PERSONAL INVOLVEMENT IN CARE I have reviewed the progress note obtained and documented by the resident and I personally participated in the reyes components. I have discussed the case and management of the patient's care. The following comments revise or confirm relevant reyes components of the note. IMPRESSION: This is a 73 year old with locally advanced pancreatic adenocarcinoma, possibly metastatic. Direct review of CT abdomen/pelvis notable for new mass lesion - although this was when stent was out so could be abscess. He is going for ERCP today. CA19-[address] chest without clear metastatic disease (reviewed) PLAN: Tumor board discussion today - discuss significance of liver finding, ?is MRI warranted There is not clear peritoneal metastatic disease, if liver is clean could entertain dx lap at some point to determine if SBRT for local control is warranted If liver lesion is metastatic disease would need regimen switch Medical Decision Making: Problems: High: Illness/injury w/ threat to life/body function Data: Unique test result(s) reviewed: 3+ Medical Decision Making Level: 4 - Moderate Tobi Nascimento MD documented in this encounter [facility] 01-06-2024 Nurse Note Assessment interrupted by medical provider, unable to complete nursing assessment. [facility] 01-06-2024 Nurse Note Assessment interrupted by medical provider, unable to complete nursing assessment. documented in this encounter [facility] 12-30-2023 Telephone encounter Note Attempted to reach the patient at the contact number that they provided [phone] (home) . 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 Failure to have a responsible adult accompany the patient to their procedure appointment prevents the use of sedation or anesthesia for their procedure; and can result in cancellation of the procedure NPO instructions were reviewed. Instructions to contact their primary care provider regarding their medications and which medications to stop in preparation for their procedure Number to call with questions or concerns [phone] Alethea Sanchez RN [facility] 12-30-2023 Miscellaneous Notes Attempted to reach the patient at the contact number that they provided [phone] (home) . 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 Failure to have a responsible adult accompany the patient to their procedure appointment prevents the use of sedation or anesthesia for their procedure; and can result in cancellation of the procedure NPO instructions were reviewed. Instructions to contact their primary care provider regarding their medications and which medications to stop in preparation for their procedure Number to call with questions or concerns [phone] Alethea Sanchez RN documented in this encounter [facility] 12-30-2023 Telephone encounter Note Treatment scheduled [facility] Work Phone: 12-30-2023 Miscellaneous Notes Treatment scheduled Spoke with pt. Informed to pick rx for slo mag take as directed. He will be in at 10:30 today for magnesium infusion. PSS please put on schedule for upstairs. Nichole Randall LPN Start Slow-Mag BID and Mg infusion tomorrow if able. Phong Aj DO Called spouse. Spouse is concerned about magnesium being 1.1. Please review labs from today and advise on mag infusion. Thank you. Gretchen Del Castillo RN Spouse called to speak to clinical regarding lab work from today. documented in this encounter [facility] 12-30-2023 Telephone encounter Note Spoke with pt. Informed to pick rx for slo mag take as directed. He will be in at 10:30 today for magnesium infusion. PSS please put on schedule for upstairs. Nichole Randall LPN [facility] 12-29-2023 Telephone encounter Note Start Slow-Mag BID and Mg infusion tomorrow if able. Phong Aj DO [facility] 12-29-2023 Telephone encounter Note Called spouse. Spouse is concerned about magnesium being 1.1. Please review labs from today and advise on mag infusion. Thank you. Gretchen Del Castillo RN [facility] 12-29-2023 Telephone encounter Note Spouse called to speak to clinical regarding lab work from today. [facility] 12-29-2023 Note [facility] 12-29-2023 History of Present illness Narrative Oncologic problem(s): 1) Locally advanced/metastatic pancreas cancer. HPI: The patient is a 73-year-old male with past medical history significant for hypertension, renal lithiasis, BOSS and GI bleed (admitted 04/16/2021 [facility] for hematemesis; previous laparotomy with wedge resection of gastric fundus and Sam fundoplication 2009 for GI bleed) and recent diagnosis of pancreas cancer. Gastric ulcer secondary to NSAID use in 2009. Recently developed jaundice. CT A/P [facility] 07/30/2023: FINDINGS: The visualized lung bases are unremarkable. The visualized portions of the heart are within normal limits. Moderate degree of the intrahepatic biliary ductal dilatation. There is dilatation of the common bile duct. It measures 1.4 cm in transverse dimension. The distal portion of the common bile duct is not well visualized. There are surgical clips in the gallbladder fossa consistent with a prior cholecystectomy. Normal spleen. I suspect a 3.5 cm x 2.6 cm mass in the head of the pancreas. There is diffuse atrophy of the pancreas. There is diffuse irregular pancreatic ductal dilatation. Correlation with ERCP is recommended to rule out obstruction of the distal portion of the common bile duct. Soft tissue fullness is seen in the region of the celiac axis. Adenopathy should be ruled out. Normal bilateral adrenal glands. Normal right kidney. Nonobstructive 7.3 mm calculus in the lower pole calyx of the left kidney. There is a moderate-sized hiatal hernia. Prior subtotal gastrectomy. Normal small intestine. There are multiple colonic diverticula consistent with diverticulosis. The appendix is visualized and appears normal. Normal abdominal aorta. Normal inferior vena cava. Normal retroperitoneum. Normal urinary bladder. The prostate measures 3.7 cm x 4.5 cm. Central calcifications are seen. Results of prior bilateral inguinal hernia repair and lower anterior abdominal wall repair with mesh. There are diffuse degenerative changes of the visualized lumbar spine. Minimal anterior listhesis of L5 and S1 with a spondylolysis of the pars interarticularis of the L5 vertebrae. IMPRESSION: Dilated intrahepatic biliary duct as well as the pancreatic duct and common bile duct. Findings suggestive of a mass in the head of the pancreas. Correlation with ERCP is recommended. The patient is status post cholecystectomy. Nonobstructive calculus in the lower pole calyx of left kidney. Status post partial gastric resection. CT pancreas 08/05/2023: IMPRESSION: 3.2 cm pancreatic head mass with vascular involvement as described. Severe biliary dilation, slightly increased from 07/30/2023 CT. 1.2 cm perihepatic node/nodule, possibly metastatic. Few additional prominent periportal nodes; attention on follow-up. MORPHOLOGIC EVALUATION: a.Location: Head /Uncinate b. Size: 2.8 x 3.2 x 3.0 cm (CC x AP x T) (2:53, 4:44) c.Density:Hypodense d. Pancreatic duct abrupt cut off :Present e. Pancreatic duct upstream dilatation: Present, measuring up to 1.6 cm (2:48). f. Biliary tree abrupt cut off:Present e. Biliary tree upstream dilatation: Severe intrahepatic and extrahepatic biliary duct dilation, slightly increased from prior. ARTERIAL EVALUATION SMA Degree of solid soft tissue contact: None Degree of increased hazy attenuation/stranding contact: < 180 degrees (4:50) Focal vessel narrowing or contour irregularity: Absent Extension to first SMA branch: Probably present CELIAC AXIS Degree of solid soft tissue contact: None Degree of increased hazy attenuation/stranding contact: > 180 degrees Focal vessel narrowing or contour irregularity: Present, focal narrowing of the distal celiac trunk (3:155) ALEX Degree of solid soft tissue contact: None Degree of increased hazy attenuation/stranding contact: > 180 degrees Focal vessel narrowing or contour irregularity: Absent Extension to celiac axis: Present Extension to bifurcation of right/left hepatic artery: Absent ARTERIAL VARIANT ANATOMY: Absent VENOUS EVALUATION MPV: Present Degree of solid soft tissue contact: <180 degrees (7:42) Degree of increased hazy attenuation/stranding contact: < 180 degrees Focal vessel narrowing or contour irregularity: Absent SMV: Absent Degree of solid soft tissue contact: None Degree of increased hazy attenuation/stranding contact: None Focal vessel narrowing or contour irregularity: Absent Extension to first draining vein: Absent Venous thrombus: No venous thrombosis. Venous collaterals: None CONTIGUOUS ORGAN INVASION: None SUSPICIOUS LYMPH NODES: Few prominent upper abdominal nodes, for example: * 0.8 cm periportal node (5:44) * 1 cm portal caval node (5: 49) LIVER LESIONS: Absent. PERITONEUM: Ascites absent. 1.2 cm node/nodule anterior to the right hepatic lobe (5:53). OTHER ABDOMINAL FINDINGS: Spleen: No mass. No splenomegaly. Calcified granulomas. Adrenals: No mass. Kidneys: 8 mm left lower pole calculus. Subcentimeter lesions too small to characterize but likely benign. No solid mass or hydronephrosis. GI tract: No dilation or wall thickening. Moderate hiatal hernia. Surgical clips at the GE junction. Normal appendix. Colonic diverticulosis. Pelvis: No mass, ascites or fluid collection. Bones/Soft Tissues: Degenerative changes. Mesh anchors along the lower anterior abdominal wall. Lower thorax: A chest CT performed will be reported separately. Telesales Team Leader (topogram) images: No additional findings. Underwent EGD/EUD along with ERCP on 08/06/2023. On EUS was noted to have an irregular mass in the pancreatic head. It was hypoechoic. Measured 3 cm in maximal cross-sectional diameter. Borders were poorly defined. Fine-needle biopsy was performed. 2 passes with a 22-gauge shark core biopsy needle using transduodenal approach was utilized. The celiac plexus and celiac ganglia were visualized and showed no signs of significant endosonographic abnormality. ERCP--Was found to have a single severe segmental biliary stricture in the lower third of the main bile duct and middle third of the main bile duct. It was malignant appearing. Upper third of the duct was severely dilated. Sphincterotomy was performed. Biliary tree was swept and nothing was found. A plastic stent was placed into the common bile duct. Pathology: Pancreas, head, mass, biopsy: -Adenocarcinoma Prior very active. Was dx borderline DM last year. Made an effort to lose weight--32 lbs. Was able to come off metformin. Current therapy: 1) FOLFIRINOX. Cycle 1 was administered FOLFOX. This was secondary to intermediate metabolizer for irinotecan and Presents for ongoing oncologic management. Interim history: Admitted to [facility] 11/26 through 12/11 for sepsis and diarrhea. C. difficile negative. Started on Metamucil and cholestyramine. Received in RBC transfusion. Had NATHAN and acidosis. Attributed to sepsis, volume depletion from diarrhea. Blood pressure meds held. Blood cultures remain negative. Echocardiogram normal. Octreotide was started. Metamucil was stopped. Blood pressure medicines including metoprolol and Norvasc were restarted when blood pressure increased. Received a total of 12 days of Zosyn and vancomycin as well as 6 days of Diflucan. Received FOLFOX only last cycle. Doing much better overall. I feel so much better. Appetite increased. Weight up a few pounds. No nausea. Had some diarrhea yesterday but prior to that stools were soft and formed. Denies abdominal pain. PAST MEDICAL HISTORY Diagnosis Date Acute gastritis without mention of hemorrhage Diverticulosis of colon (without mention of hemorrhage) Hernia of unspecified site of abdominal cavity without mention of obstruction or gangrene hiatal Iron deficiency anemia, unspecified 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) 08/12/2023 Nonalcoholic steatohepatitis (BOSS) Unspecified essential hypertension Essential hypertension PAST SURGICAL HISTORY Procedure Laterality Date CHOLECYSTECTOMY 10/2004 laparoscopic COLONOSCOPY FLX DX W/COLLJ SPEC WHEN PFRMD 12/16/07 Extensive sigmoid diverticulosis COLONOSCOPY FLX DX W/COLLJ SPEC WHEN PFRMD 05/25/10 Extensive sigmoid diverticulosis EGD TRANSORAL BIOPSY SINGLE/MULTIPLE 12/16/07 HH, Schatzki ring,antral gastritis EGD TRANSORAL BIOPSY SINGLE/MULTIPLE 05/25/10 HH LAPAROSCOPY SURG RPR INITIAL INGUINAL HERNIA 02-01-08 RIGHT inguinal hernia LAPAROSCOPY SURG RPR INITIAL INGUINAL HERNIA 25-0/8 LEFT inguinal hernia PAST SURGICAL HISTORY OF 05/14/2011 Hernia repair REMV CATARACT EXTRACAP,INSERT LENS Right 11/02/2020 SN60WF +16.0 D ALLERGIES Allergen Reactions Phenergan [Prometha* Anaphylaxis vital signs dropped / patient coded Current Outpatient Medications Medication Sig metoclopramide HCl (REGLAN) 10 mg tablet Take 1 tablet by mouth three times a day. but not within 6 hours of taking olanzapine. OLANZapine (ZYPREXA) 5 mg tablet TAKE 1 TABLET BY MOUTH ONCE DAILY AT BEDTIME BEGINNING THE EVENING OF FIRST DAY OF CHEMOTHERAPY EACH CYCLE AND TAKE FOR 4 DAYS. cholestyramine (QUESTRAN) 4 gram packet Take 1 Packet by mouth two times a day with meals. metoprolol tartrate, short acting, (LOPRESSOR) 25 mg tablet Take 1 tablet by mouth every 12 hours. Potassium Bicarb-Citric Acid (K-LYTE) 25 mEq disintegrating tablet Take 1 tablet by mouth two times a day. octreotide (SANDOSTATIN) 100 mcg/mL soln Inject 1 mL subcutaneously every 8 hours. inmpcy-yhapsbxl-baxeujy (ZENPEP) 40,000-126,000- 168,000 unit delayed release capsule Take 2 capsules by mouth three times a day with meals. loratadine (CLARITIN) 10 mg tablet Take 10 mg by mouth as needed. amLODIPine (NORVASC) 5 mg tablet Take 1 tablet by mouth once daily. lidocaine-prilocaine (EMLA) 2.5-2.5 % cream Apply 60 minutes prior to accessing port. dexAMETHasone (DECADRON) 4 mg tablet Take 1 tablet by mouth two times a day with meals. for 3 days beginning the day after chemotherapy treatment. OLANZapine (ZYPREXA) 5 mg tablet Take 1 tablet by mouth daily at bedtime. beginning the evening of first day of chemotherapy each cycle and take for 4 days. metoclopramide HCl (REGLAN) 10 mg tablet TAKE 1 TABLET BY MOUTH THREE TIMES DAILY. DO NOT TAKE WITHIN 6 HOURS OF TAKING OLANZAPINE. iv contrast (will be provided with radiology test) CT ABD/PEL -Inject, intravenously, once for 1 dose.No IV access, insert saline lock prior to the beginning of sedation, infusion, injection of imaging exam. Discontinue saline lock post exam. If Pt. has a central line or IVAD, may access for administration according to line specific nursing protocol. Once exam is complete flush line and de-access according to line specific nursing protocol in the CT contrast administration guidelines link. enteric contrast (will be provided with radiology test) For CT ABD/PEL W IVCON Routine order Administer, As Directed One Time Only, via Oral, Rectal, both Oral and Rectal, Enteric Tube, Stoma or Indwelling Catheter, Enteric Contrast as designated per enteric contrast guidelines iv contrast (will be provided with radiology test) CT Chest W -Inject, intravenously, once for 1 dose.No IV access, insert saline lock prior to the beginning of sedation, infusion, injection of imaging exam. Discontinue saline lock post exam. If Pt. has a central line or IVAD, may access for administration according to line specific nursing protocol. Once exam is complete flush line and de-access according to line specific nursing protocol in the CT contrast administration guidelines link. ondansetron (ZOFRAN) 8 mg tablet Take 1 tablet by mouth every 8 hours as needed (For chemotherapy induced nausea and vomiting.). Hold for 72 hours after each chemotherapy treatment. No current facility-administered medications for this visit. 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 Family History Problem Relation Age of Onset Stroke Mother age 72 Diabetes Father age 90 and prostate cancer Cataract Father Prostate Cancer Father Psychiatry Sister A & W, controlled with medication Hypertension Sister Diabetes Sister A & W Diabetes Brother A & W Diabetes Brother A & W Diabetes Brother A & W Diabetes Brother A & W None Brother A & W Colon Cancer Brother Father--Prostate cancer low grade in his 60s. Lived to 90. Brother--Colon cancer-- from metastatic disease age 77. Daughter--Breast cancer age 39. Now Two years out. First cousin--Pancreas cancer (mothers are sisters). Breast cancer on 's side. ROS: Constitutional: No fever. No drenching night sweats. Neuro: No recent GO, vertigo, dizziness or imbalance. No symptoms of sensory neuropathy. HEENT: No recent change in voice, vision or hearing. Resp: No cough, wheeze of hemoptysis. No shortness of breath at rest. CVS: No exertional chest pain, PND or orthopnea. No extremity swelling/edema. No symptoms of claudication. No painful or tender varicose veins. GI: See above. : No dysuria or gross hematuria. No symptoms of bladder outlet obstruction. Endo: No hot flashes. No polyuria or polydipsia. No heat or cold intolerance. Musculoskeletal: No bone, back, joint and muscular pain. Derm: No current rash. No history of jaundice. No diffuse pruritis. Heme: No unusual bleeding and unexplained bruising. Psych: Normal mood. PHYSICAL EXAM: Vitals: Blood pressure 125/83, pulse 74, temperature 36.4 C (97.5 F), temperature source Temporal, weight 76.7 kg (169 lb), SpO2 98%. Well-appearing and in no acute distress. EYES: Sclerae are mildly icteric bilaterally. LYMPHATIC: There is no palpable cervical or supraclavicular adenopathy. RESPIRATORY: Inspiratory breath sounds are of normal intensity in all velazquez. No rales, wheezes or rhonchi CARDIOVASCULAR: Rhythm is regular. ABDOMEN: The abdomen is nondistended. No tenderness or mass. Extremities: No swelling or edema. SKIN: No rash. No petechiae. NEUROLOGIC: liquified natural gas technician II-XII are grossly intact. No focal motor weakness. LABS: Latest Ref [facility] 11/18/2023 WBC 3.70 - 11.00 k/uL 11.67 (H) (P) RBC 4.20 - 6.00 m/uL 3.39 (L) (P) Hemoglobin 13.0 - 17.0 g/dL 9.5 (L) (P) Hematocrit 39.0 - 51.0 % 30.2 (L) (P) MCV 80.0 - 100.0 fL 89.1 (P) MCH 26.0 - 34.0 pg 28.0 (P) MCHC 30.5 - 36.0 g/dL 31.5 (P) RDW-CV 11.5 - 15.0 % 16.2 (H) (P) Platelet Count 150 - 400 k/uL 192 (P) MPV 9.0 - 12.7 fL 9.7 (P) ASSESSMENT/PLAN: (C25.0) 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) (primary encounter diagnosis) (K83.1) Biliary obstruction Assessment: -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 -Caris on tumor specimen pending. -Biliary obstruction on presentation. Plastic stent placed 08/06/2023. -Suspicious mesenteric nodule anterior to the lower right lobe of the liver. Prominent upper abdominal lymph nodes. -In-depth discussion with the patient and family today regarding approach to therapy. Not clear that he will be a candidate for resection and I recommended initiating systemic chemotherapy with FOLFIRINOX (family history of colon and pancreas cancer) while awaiting results of NGS and genetic testing. -UGT 1A1 intermediate metabolizer; DPYD normal metabolizer. -Biopsy of abdominal nodule nondiagnostic. -Genetic testing negative. 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 No actionable mutation. -TB recs: --Not operative candidate. --Continue with chemotherapy. Consider radiation for local control after 12 cycles completion. --May need to have a diagnostic lap for perionteal nodule. -Pancreatic enzyme replacement had significantly helped diarrhea, but his endorsed today that he probably was not letting me know how bad the diarrhea had been getting. -Improved on octreotide, continued PEP and omission of irinotecan. -CT abdomen pelvis not yet resulted. However reviewed imaging. Appears stent has migrated into the small bowel. -Plan to monitor lung nodule for now. If PD once official radiology report available then we will discuss rotating to gem Abraxane. -Alkaline phosphatase elevated but hepatocellular enzymes and bilirubin normal. He has no abdominal pain. Plan: -Omit FOLFOX tomorrow in anticipation of stent replacement next week. -Can resume FOLFOX in 2 weeks once stent replaced. He will need a permanent stent. -Monitor CA 19-9. -Will be seeing Dr. Nascimento next week as well. -Continue pancreatic enzyme replacement. -Monthly octreotide. Portions of this documentation were copied and pasted from previous office visit notes in order to provide a cohesive continuity of the history. The note has been reviewed and edited and updated as necessary. I spent a total of 25 minutes on the date of the service which included preparing to see the patient, [id number] patient care, completing clinical documentation, obtaining and/or reviewing separately obtained history, performing a medically appropriate examination, counseling and educating the patient/family/caregiver, ordering medications, tests, or procedures, communicating with other HCPs (not separately reported), and communicating results to the patient/family/caregiver. Phong Aj, documented in this encounter [facility] 12-25-2023 History of Present illness Narrative Radiology Service Progress Note PATIENT NAME: Kristin Lara DATE OF SERVICE: December 25, 2023 TIME: 1:04 PM PATIENT IDENTITY VERIFICATION COMPLETED USING TWO (2) IDENTIFIERS: Name and Date of confirmed by patient verbally. FALL SCREENING: Has the patient had 2 falls in the last year or 1 fall with injury or currently using an Ambulatory Assistive Device (Walker, Cane, Wheelchair, Crutches, etc.)? No PATIENT GENDER DATA: Male PATIENT RELEVANT IMPLANT DATA REVIEWED: Yes PATIENT PRESENTS WITH AN IMPLANTABLE OR ATTACHED SELLING SPECIALIST: No RADIOLOGY DEPARTMENT: CT; Exam(s) Completed: Chest Abdomen Pelvis PERIPHERAL IV DATA: power port accessed by [employer] SIGNED BY: RT Christina(R) December 25, 2023 1:04 PM documented in this encounter [facility] 12-25-2023 Note [facility] 12-24-2023 Telephone encounter Note Spoke with primary nurse and scheduled for 8 AM. Patient aware. Quynh Nuñez [facility] 12-24-2023 Miscellaneous Notes Spoke with primary nurse and scheduled for 8 AM. Patient aware. Quynh Nuñez Please schedule pt. For hydration prior to his CT scan tomorrow . Nichole Randall LPN documented in this encounter [facility] 12-24-2023 Telephone encounter Note Please schedule pt. For hydration prior to his CT scan tomorrow . Nichole Randall LPN [facility] 12-16-2023 Telephone encounter Note Prescription Refill Information The patient has been identified by name and date of : Yes Caregiver verified no other encounters exist for this prescription request: Yes Caregiver confirmed with patient/requestor that no other refills are due, in the near future, with this provider at this time: Yes The last office visit in the department: 02/16/24 Does the patient have a future office visit with this provider/department: Yes Requested Prescriptions Pending Prescriptions Disp Refills metoclopramide HCl (REGLAN) 10 mg tablet 60 tablet 0 Sig: Take 1 tablet by mouth three times a day. but not within 6 hours of taking olanzapine. OLANZapine (ZYPREXA) 5 mg tablet 16 tablet 0 Sig: Take 1 tablet by mouth daily at bedtime. beginning the evening of first day of chemotherapy each cycle and take for 4 days. Vin Cardenas RN December 16, 2023 1:03 PM T [facility] 12-16-2023 Miscellaneous Notes Prescription Refill Information The patient has been identified by name and date of : Yes Caregiver verified no other encounters exist for this prescription request: Yes Caregiver confirmed with patient/requestor that no other refills are due, in the near future, with this provider at this time: Yes The last office visit in the department: 02/16/24 Does the patient have a future office visit with this provider/department: Yes Requested Prescriptions Pending Prescriptions Disp Refills metoclopramide HCl (REGLAN) 10 mg tablet 60 tablet 0 Sig: Take 1 tablet by mouth three times a day. but not within 6 hours of taking olanzapine. OLANZapine (ZYPREXA) 5 mg tablet 16 tablet 0 Sig: Take 1 tablet by mouth daily at bedtime. beginning the evening of first day of chemotherapy each cycle and take for 4 days. Vin Cardenas RN December 16, 2023 1:03 PM documented in this encounter [facility] 12-16-2023 Note HNO ID: [id number] Author: VIN CARDENAS RN Service: ? Author Type: Registered Nurse Type: Progress Notes Filed: 12/16/2023 14:27 Note Text: OV prior to tx. Vin Cardenas RN [facility] 12-16-2023 History of Present illness Narrative OV prior to tx. Vin Cardenas RN documented in this encounter [facility] 12-16-2023 Note [facility] 12-16-2023 History of Present illness Narrative HISTORY OF PRESENT ILLNESS: Kristin Lara is a 73 year old male history locally advanced pancreatic adenocarcinoma receiving systemic treatment with FolFIrinOx, cycle 7 developed severe diarrhea required about 10 day hospital stay (some of which was just waiting for octreotide to be approved as outpatient). Here for chemo, feels a little tired, was better last few days. Diarrhea controlled with octreotide. CLINICAL IMPRESSION: Locally advanced pancreatic cancer Still tired, was feeling better yesterday RECOMMENDATION/PLAN: 1. Cycle 8 FolFox, omitting irinotecan due to toxicity 2. Update scans 3. To see Surgery next week for re assessment for resection Written and verbal health teaching given to patient, patient verbalizes understanding and agrees with treatment plan. PAST MEDICAL HISTORY Diagnosis Date Acute gastritis without mention of hemorrhage Diverticulosis of colon (without mention of hemorrhage) Hernia of unspecified site of abdominal cavity without mention of obstruction or gangrene hiatal Iron deficiency anemia, unspecified 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) 08/12/2023 Nonalcoholic steatohepatitis (BOSS) Unspecified essential hypertension Essential hypertension PAST SURGICAL HISTORY Procedure Laterality Date CHOLECYSTECTOMY 10/2004 laparoscopic COLONOSCOPY FLX DX W/COLLJ SPEC WHEN PFRMD 12/16/07 Extensive sigmoid diverticulosis COLONOSCOPY FLX DX W/COLLJ SPEC WHEN PFRMD 05/25/10 Extensive sigmoid diverticulosis EGD TRANSORAL BIOPSY SINGLE/MULTIPLE 12/16/07 HH, Schatzki ring,antral gastritis EGD TRANSORAL BIOPSY SINGLE/MULTIPLE 05/25/10 HH LAPAROSCOPY SURG RPR INITIAL INGUINAL HERNIA 02-01-08 RIGHT inguinal hernia LAPAROSCOPY SURG RPR INITIAL INGUINAL HERNIA LEFT inguinal hernia PAST SURGICAL HISTORY OF 05/14/2011 Hernia repair REMV CATARACT EXTRACAP,INSERT LENS Right 11/02/2020 SN60WF +16.0 D FAMILY HISTORY Problem Relation Age of Onset Stroke Mother age 72 Diabetes Father age 90 and prostate cancer Cataract Father Prostate Cancer Father Psychiatry Sister A & W, controlled with medication Hypertension Sister Diabetes Sister A & W Diabetes Brother A & W Diabetes Brother A & W Diabetes Brother A & W Diabetes Brother A & W None Brother A & W Colon Cancer Brother Social History Tobacco Use Smoking status: Never Smokeless tobacco: Never Vaping Use Vaping Use: Never used Substance Use Topics Alcohol use: No Drug use: No ALLERGIES: ALLERGIES Allergen Reactions Phenergan [Prometha* Anaphylaxis vital signs dropped / patient coded CURRENT OUTPATIENT MEDICATIONS: cholestyramine (QUESTRAN) 4 gram packet Take 1 Packet by mouth two times a day with meals. metoprolol tartrate, short acting, (LOPRESSOR) 25 mg tablet Take 1 tablet by mouth every 12 hours. Potassium Bicarb-Citric Acid (K-LYTE) 25 mEq disintegrating tablet Take 1 tablet by mouth two times a day. octreotide (SANDOSTATIN) 100 mcg/mL soln Inject 1 mL subcutaneously every 8 hours. jtoaaw-qglcifcn-bppstdi (ZENPEP) 40,000-126,000- 168,000 unit delayed release capsule Take 2 capsules by mouth three times a day with meals. loratadine (CLARITIN) 10 mg tablet Take 10 mg by mouth as needed. amLODIPine (NORVASC) 5 mg tablet Take 1 tablet by mouth once daily. lidocaine-prilocaine (EMLA) 2.5-2.5 % cream Apply 60 minutes prior to accessing port. dexAMETHasone (DECADRON) 4 mg tablet Take 1 tablet by mouth two times a day with meals. for 3 days beginning the day after chemotherapy treatment. ondansetron (ZOFRAN) 8 mg tablet Take 1 tablet by mouth every 8 hours as needed (For chemotherapy induced nausea and vomiting.). Hold for 72 hours after each chemotherapy treatment. iv contrast (will be provided with radiology test) CT ABD/PEL -Inject, intravenously, once for 1 dose.No IV access, insert saline lock prior to the beginning of sedation, infusion, injection of imaging exam. Discontinue saline lock post exam. If Pt. has a central line or IVAD, may access for administration according to line specific nursing protocol. Once exam is complete flush line and de-access according to line specific nursing protocol in the CT contrast administration guidelines link. enteric contrast (will be provided with radiology test) For CT ABD/PEL W IVCON Routine order Administer, As Directed One Time Only, via Oral, Rectal, both Oral and Rectal, Enteric Tube, Stoma or Indwelling Catheter, Enteric Contrast as designated per enteric contrast guidelines iv contrast (will be provided with radiology test) CT Chest W -Inject, intravenously, once for 1 dose.No IV access, insert saline lock prior to the beginning of sedation, infusion, injection of imaging exam. Discontinue saline lock post exam. If Pt. has a central line or IVAD, may access for administration according to line specific nursing protocol. Once exam is complete flush line and de-access according to line specific nursing protocol in the CT contrast administration guidelines link. REVIEW OF SYSTEMS: GENERAL: No fever, night sweats, weight loss or malaise. All other reviewed and negative other than HPI. PHYSICAL EXAMINATION: VITAL SIGNS: BP 137/88 Pulse 92 Temp (Src) 98.5 (Temporal) Wt 169 lb (76.7kg) SpO2 98% GENERAL APPEARANCE: Well appearing, in no acute distress, alert and oriented x3, well-hydrated, well nourished. LUNGS: Lungs clear to auscultation, no wheezing or rhonchi. HEART: Negative. RRR without murmur, gallop, or rubs. No ectopy. I spent a total of 45 minutes on the date of the service which included preparing to see the patient, yuaw-vm-rchq patient care, completing clinical documentation, obtaining and/or reviewing separately obtained history, performing a medically appropriate examination, counseling and educating the patient/family/caregiver, ordering medications, tests, or procedures, communicating with other HCPs (not separately reported), independently interpreting results (not separately reported), and communicating results to the patient/family/caregiver. 45 Electronically Signed: Marlon Dahl MD December 16, 2023 documented in this encounter [facility] 12-15-2023 Telephone encounter Note DISCHARGE CALL BACK Today's date: December 15, 2023 Notified of Pt discharge by: Epic notification Patient discharged on 12/12/23 from [place] to Home Primary Cancer Diagnosis: Locally advanced/metastatic pancreas cancer Admitting Diagnosis: Sepsis and NATHAN Discharge Summary/SBAR reviewed: Yes Handoff Discussed with [employer] Clinical Leader: N/A Psychosocial Risk Factors: None If patient discharged to SNF/Rehab Facility, phone call completed to reinforce discharge instructions and follow up: N/A Call Disposition: Called patient and spoke with Patient identified by name and date of . YES Patient with symptom issues: No he's probably better now than he has been since the first of October . Denies fever, chills, diarrhea, or pain. Pain: No=0 (pain 0 on a scale of 0-10). Is patient followed by Palliative Medicine? No Palliative Medicine follow up: N/A Any new barriers to care identified? No Any new referrals needed? No Social Work Follow-Up visit scheduled? No Does the patient need interventions no or same day appointment: No MEDICATION ADHERENCE Patient discharged with prescriptions? Yes, START taking these medications cholestyramine 4 gram packet Commonly known as: QUESTRAN Take 1 Packet by mouth two times a day with meals. metoprolol tartrate (short acting) 25 mg tablet Commonly known as: LOPRESSOR Take 1 tablet by mouth every 12 hours. octreotide 100 mcg/mL Soln Commonly known as: SandoSTATIN Inject 1 mL subcutaneously every 8 hours. Potassium Bicarb-Citric Acid 25 mEq disintegrating tablet Commonly known as: K-LYTE Take 1 tablet by mouth two times a day. Discharge prescriptions filled: Yes Patient understands when to take prescriptions: Yes FOLLOW UP Patient scheduled for follow-up appointment within 5 business days of discharge? Yes Patient reminded of follow-up appointment with [facility] provider, Dr. Dahl on 12/16/23: Yes Discussed: Diarrhea has improved with octreotide. Per Dr. Aj before he went on vacation, the plan is to omit irinotecan. Patient has an OV with Dr. Dahl tomorrow prior to treatment. PATIENT EDUCATION / REINFORCEMENT Patient verbalizes understanding of when to seek Medical Attention? YES Patient verbalizes understanding of after hours and weekend phone number? YES Gretchen Del Castillo RN [facility] 12-15-2023 Miscellaneous Notes DISCHARGE CALL BACK Today's date: December 15, 2023 Notified of Pt discharge by: Epic notification Patient discharged on 12/12/23 from [place] to Home Primary Cancer Diagnosis: Locally advanced/metastatic pancreas cancer Admitting Diagnosis: Sepsis and NATHAN Discharge Summary/SBAR reviewed: Yes Handoff Discussed with [employer] Clinical Leader: N/A Psychosocial Risk Factors: None If patient discharged to SNF/Rehab Facility, phone call completed to reinforce discharge instructions and follow up: N/A Call Disposition: Called patient and spoke with Patient identified by name and date of . YES Patient with symptom issues: No he's probably better now than he has been since the first of October . Denies fever, chills, diarrhea, or pain. Pain: No=0 (pain 0 on a scale of 0-10). Is patient followed by Palliative Medicine? No Palliative Medicine follow up: N/A Any new barriers to care identified? No Any new referrals needed? No Social Work Follow-Up visit scheduled? No Does the patient need interventions no or same day appointment: No MEDICATION ADHERENCE Patient discharged with prescriptions? Yes, START taking these medications cholestyramine 4 gram packet Commonly known as: QUESTRAN Take 1 Packet by mouth two times a day with meals. metoprolol tartrate (short acting) 25 mg tablet Commonly known as: LOPRESSOR Take 1 tablet by mouth every 12 hours. octreotide 100 mcg/mL Soln Commonly known as: SandoSTATIN Inject 1 mL subcutaneously every 8 hours. Potassium Bicarb-Citric Acid 25 mEq disintegrating tablet Commonly known as: K-LYTE Take 1 tablet by mouth two times a day. Discharge prescriptions filled: Yes Patient understands when to take prescriptions: Yes FOLLOW UP Patient scheduled for follow-up appointment within 5 business days of discharge? Yes Patient reminded of follow-up appointment with [facility] provider, Dr. Dahl on 12/16/23: Yes Discussed: Diarrhea has improved with octreotide. Per Dr. Aj before he went on vacation, the plan is to omit irinotecan. Patient has an OV with Dr. Dahl tomorrow prior to treatment. PATIENT EDUCATION / REINFORCEMENT Patient verbalizes understanding of when to seek Medical Attention? YES Patient verbalizes understanding of after hours and weekend phone number? YES Gretchen Del Castillo RN documented in this encounter [facility] 12-11-2023 Note [facility] 12-10-2023 Note [facility] 12-10-2023 Note [facility] 12-10-2023 Note [facility] 12-09-2023 Note [facility] 12-09-2023 Note [facility] 12-08-2023 Note [facility] 12-07-2023 Note [facility] 12-06-2023 Note [facility] 12-05-2023 Note [facility] 12-05-2023 Note [facility] 12-04-2023 Note [facility] 12-04-2023 Note [facility] 12-03-2023 Note [facility] 12-02-2023 Note [facility] 12-01-2023 Note [facility] 11-30-2023 Note [facility] 11-29-2023 Note [facility] 11-27-2023 Telephone encounter Note Care Coordination Triage Note [facility] Situation: Patient reports Bowel symptoms and Fever Background: Disease, current pertinent medications/treatments Pancreatic on Folfirinox Assessment: Spouse calls and states that patient has a temperature of 102F. She was checking him yesterday but didn't think that he felt warm then. Did not actually check temperature until right before calling us. Diarrhea- 6 episodes yesterday, used 8 tablets of Imodium and already another 6 episodes today and has had 4 tablets of Imodium. States he is very weak, lightheaded and unsteady. She walks with him in the house to assist him. Not much to eat today, a little last night Fluid intake today: Boost, 2 Body [place] and water, not sure how much. Denies pain, cold/flu symptoms. Recommendations: Per RNCC, patient directed to: Emergency Room due to the issue being urgent. Spoke with Dr. Aj and he advise going to [facility] ED. Call to patient, spoke with Yary. She is agreeable to going to [place] and will leave at this time. Marylou Trevizo RN November 27, 2023 3:14 PM [facility] Work Phone: 11-27-2023 Miscellaneous Notes Care Coordination Triage Note [facility] Situation: Patient reports Bowel symptoms and Fever Background: Disease, current pertinent medications/treatments Pancreatic on Folfirinox Assessment: Spouse calls and states that patient has a temperature of 102F. She was checking him yesterday but didn't think that he felt warm then. Did not actually check temperature until right before calling us. Diarrhea- 6 episodes yesterday, used 8 tablets of Imodium and already another 6 episodes today and has had 4 tablets of Imodium. States he is very weak, lightheaded and unsteady. She walks with him in the house to assist him. Not much to eat today, a little last night Fluid intake today: Boost, 2 Body [place] and water, not sure how much. Denies pain, cold/flu symptoms. Recommendations: Per RNCC, patient directed to: Emergency Room due to the issue being urgent. Spoke with Dr. Aj and he advise going to [facility] ED. Call to patient, spoke with Yary. She is agreeable to going to [place] and will leave at this time. Marylou Trevizo RN November 27, 2023 3:14 PM documented in this encounter [facility] 11-18-2023 Telephone encounter Note Request from Dr. Nascimento regarding repeat ERCP 11/27. Called and spoke to patient and patient accepted 11/27 730 am procedure. Pre-procedure instructions provided. All questions answered. Teams updated on accepted procedure [facility] 11-18-2023 Miscellaneous Notes Request from Dr. Nascimento regarding repeat ERCP 11/27. Called and spoke to patient and patient accepted 11/27 730 am procedure. Pre-procedure instructions provided. All questions answered. Teams updated on accepted procedure documented in this encounter [facility] 11-18-2023 Note [facility] 11-18-2023 History of Present illness Narrative Secure chat - per Dr Aj to give IV potassium electrolyte replacement today. Dr Aj filed orders. Theresa Alejandra RN documented in this encounter [facility] 11-18-2023 Note [facility] 11-18-2023 History of Present illness Narrative Oncologic problem(s): 1) Locally advanced/metastatic pancreas cancer. HPI: The patient is a 73-year-old male with past medical history significant for hypertension, renal lithiasis, BOSS and GI bleed (admitted 04/16/2021 [facility] for hematemesis; previous laparotomy with wedge resection of gastric fundus and Sam fundoplication 2009 for GI bleed) and recent diagnosis of pancreas cancer. Gastric ulcer secondary to NSAID use in 2009. Recently developed jaundice. CT A/P [facility] 07/30/2023: FINDINGS: The visualized lung bases are unremarkable. The visualized portions of the heart are within normal limits. Moderate degree of the intrahepatic biliary ductal dilatation. There is dilatation of the common bile duct. It measures 1.4 cm in transverse dimension. The distal portion of the common bile duct is not well visualized. There are surgical clips in the gallbladder fossa consistent with a prior cholecystectomy. Normal spleen. I suspect a 3.5 cm x 2.6 cm mass in the head of the pancreas. There is diffuse atrophy of the pancreas. There is diffuse irregular pancreatic ductal dilatation. Correlation with ERCP is recommended to rule out obstruction of the distal portion of the common bile duct. Soft tissue fullness is seen in the region of the celiac axis. Adenopathy should be ruled out. Normal bilateral adrenal glands. Normal right kidney. Nonobstructive 7.3 mm calculus in the lower pole calyx of the left kidney. There is a moderate-sized hiatal hernia. Prior subtotal gastrectomy. Normal small intestine. There are multiple colonic diverticula consistent with diverticulosis. The appendix is visualized and appears normal. Normal abdominal aorta. Normal inferior vena cava. Normal retroperitoneum. Normal urinary bladder. The prostate measures 3.7 cm x 4.5 cm. Central calcifications are seen. Results of prior bilateral inguinal hernia repair and lower anterior abdominal wall repair with mesh. There are diffuse degenerative changes of the visualized lumbar spine. Minimal anterior listhesis of L5 and S1 with a spondylolysis of the pars interarticularis of the L5 vertebrae. IMPRESSION: Dilated intrahepatic biliary duct as well as the pancreatic duct and common bile duct. Findings suggestive of a mass in the head of the pancreas. Correlation with ERCP is recommended. The patient is status post cholecystectomy. Nonobstructive calculus in the lower pole calyx of left kidney. Status post partial gastric resection. CT pancreas 08/05/2023: IMPRESSION: 3.2 cm pancreatic head mass with vascular involvement as described. Severe biliary dilation, slightly increased from 07/30/2023 CT. 1.2 cm perihepatic node/nodule, possibly metastatic. Few additional prominent periportal nodes; attention on follow-up. MORPHOLOGIC EVALUATION: a.Location: Head /Uncinate b. Size: 2.8 x 3.2 x 3.0 cm (CC x AP x T) (2:53, 4:44) c.Density:Hypodense d. Pancreatic duct abrupt cut off :Present e. Pancreatic duct upstream dilatation: Present, measuring up to 1.6 cm (2:48). f. Biliary tree abrupt cut off:Present e. Biliary tree upstream dilatation: Severe intrahepatic and extrahepatic biliary duct dilation, slightly increased from prior. ARTERIAL EVALUATION SMA Degree of solid soft tissue contact: None Degree of increased hazy attenuation/stranding contact: < 180 degrees (4:50) Focal vessel narrowing or contour irregularity: Absent Extension to first SMA branch: Probably present CELIAC AXIS Degree of solid soft tissue contact: None Degree of increased hazy attenuation/stranding contact: > 180 degrees Focal vessel narrowing or contour irregularity: Present, focal narrowing of the distal celiac trunk (3:155) ALEX Degree of solid soft tissue contact: None Degree of increased hazy attenuation/stranding contact: > 180 degrees Focal vessel narrowing or contour irregularity: Absent Extension to celiac axis: Present Extension to bifurcation of right/left hepatic artery: Absent ARTERIAL VARIANT ANATOMY: Absent VENOUS EVALUATION MPV: Present Degree of solid soft tissue contact: <180 degrees (7:42) Degree of increased hazy attenuation/stranding contact: < 180 degrees Focal vessel narrowing or contour irregularity: Absent SMV: Absent Degree of solid soft tissue contact: None Degree of increased hazy attenuation/stranding contact: None Focal vessel narrowing or contour irregularity: Absent Extension to first draining vein: Absent Venous thrombus: No venous thrombosis. Venous collaterals: None CONTIGUOUS ORGAN INVASION: None SUSPICIOUS LYMPH NODES: Few prominent upper abdominal nodes, for example: * 0.8 cm periportal node (5:44) * 1 cm portal caval node (5: 49) LIVER LESIONS: Absent. PERITONEUM: Ascites absent. 1.2 cm node/nodule anterior to the right hepatic lobe (5:53). OTHER ABDOMINAL FINDINGS: Spleen: No mass. No splenomegaly. Calcified granulomas. Adrenals: No mass. Kidneys: 8 mm left lower pole calculus. Subcentimeter lesions too small to characterize but likely benign. No solid mass or hydronephrosis. GI tract: No dilation or wall thickening. Moderate hiatal hernia. Surgical clips at the GE junction. Normal appendix. Colonic diverticulosis. Pelvis: No mass, ascites or fluid collection. Bones/Soft Tissues: Degenerative changes. Mesh anchors along the lower anterior abdominal wall. Lower thorax: A chest CT performed will be reported separately. [employer] Team Leader (topogram) images: No additional findings. Underwent EGD/EUD along with ERCP on 08/06/2023. On EUS was noted to have an irregular mass in the pancreatic head. It was hypoechoic. Measured 3 cm in maximal cross-sectional diameter. Borders were poorly defined. Fine-needle biopsy was performed. 2 passes with a 22-gauge shark core biopsy needle using transduodenal approach was utilized. The celiac plexus and celiac ganglia were visualized and showed no signs of significant endosonographic abnormality. ERCP--Was found to have a single severe segmental biliary stricture in the lower third of the main bile duct and middle third of the main bile duct. It was malignant appearing. Upper third of the duct was severely dilated. Sphincterotomy was performed. Biliary tree was swept and nothing was found. A plastic stent was placed into the common bile duct. Pathology: Pancreas, head, mass, biopsy: -Adenocarcinoma Prior very active. Was dx borderline DM last year. Made an effort to lose weight--32 lbs. Was able to come off metformin. Current therapy: 1) FOLFIRINOX. Cycle 1 was administered FOLFOX. This was secondary to intermediate metabolizer for irinotecan and Presents for ongoing oncologic management. Interim history: Normal appetite. Eats well. Supplements with Boost at least once a day. Occasional nausea. Bowels moving. Stool color back to normal. Loose stools, but no longer having any watery diarrhea. No BMs from about 9 pm to about 6 am. No pain. Neuropathy remains self limited cold induced. No symptoms of stomatitis. Fatigued. Sleeps through the night. Naps. Stable dyspnea with exertion. URI symptoms improved. PAST MEDICAL HISTORY Diagnosis Date Acute gastritis without mention of hemorrhage Diverticulosis of colon (without mention of hemorrhage) Hernia of unspecified site of abdominal cavity without mention of obstruction or gangrene hiatal Iron deficiency anemia, unspecified 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) 08/12/2023 Nonalcoholic steatohepatitis (BOSS) Unspecified essential hypertension Essential hypertension PAST SURGICAL HISTORY Procedure Laterality Date CHOLECYSTECTOMY 10/2004 laparoscopic COLONOSCOPY FLX DX W/COLLJ SPEC WHEN PFRMD 12/16/07 Extensive sigmoid diverticulosis COLONOSCOPY FLX DX W/COLLJ SPEC WHEN PFRMD 05/25/10 Extensive sigmoid diverticulosis EGD TRANSORAL BIOPSY SINGLE/MULTIPLE 12/16/07 HH, Schatzki ring,antral gastritis EGD TRANSORAL BIOPSY SINGLE/MULTIPLE 05/25/10 HH LAPAROSCOPY SURG RPR INITIAL INGUINAL HERNIA 02-01-08 RIGHT inguinal hernia LAPAROSCOPY SURG RPR INITIAL INGUINAL HERNIA LEFT inguinal hernia PAST SURGICAL HISTORY OF 05/14/2011 Hernia repair REMV CATARACT EXTRACAP,INSERT LENS Right 11/02/2020 SN60WF +16.0 D ALLERGIES Allergen Reactions Phenergan [Prometha* Anaphylaxis vital signs dropped / patient coded Current Outpatient Medications Medication Sig ggvngu-jytjigmz-wowlvzj (ZENPEP) 40,000-126,000- 168,000 unit delayed release capsule Take 2 capsules by mouth three times a day with meals. OLANZapine (ZYPREXA) 5 mg tablet Take 1 tablet by mouth daily at bedtime. beginning the evening of first day of chemotherapy each cycle and take for 4 days. potassium chloride (K-TAB) 10 mEq tablet Take 2 tablets by mouth two times a day. loratadine (CLARITIN) 10 mg tablet Take 10 mg by mouth as needed. amLODIPine (NORVASC) 5 mg tablet Take 1 tablet by mouth once daily. metoclopramide HCl (REGLAN) 10 mg tablet Take 1 tablet by mouth three times a day. but not within 6 hours of taking olanzapine. losartan (COZAAR) 100 mg tablet Take 1 tablet by mouth once daily. lidocaine-prilocaine (EMLA) 2.5-2.5 % cream Apply 60 minutes prior to accessing port. dexAMETHasone (DECADRON) 4 mg tablet Take 1 tablet by mouth two times a day with meals. for 3 days beginning the day after chemotherapy treatment. ondansetron (ZOFRAN) 8 mg tablet Take 1 tablet by mouth every 8 hours as needed (For chemotherapy induced nausea and vomiting.). Hold for 72 hours after each chemotherapy treatment. cholecalciferol, vitamin D3, (VITAMIN D3 ORAL) Take 1,000 Units by mouth once daily. iv contrast (will be provided with radiology test) CT ABD/PEL -Inject, intravenously, once for 1 dose.No IV access, insert saline lock prior to the beginning of sedation, infusion, injection of imaging exam. Discontinue saline lock post exam. If Pt. has a central line or IVAD, may access for administration according to line specific nursing protocol. Once exam is complete flush line and de-access according to line specific nursing protocol in the CT contrast administration guidelines link. enteric contrast (will be provided with radiology test) For CT ABD/PEL W IVCON Routine order Administer, As Directed One Time Only, via Oral, Rectal, both Oral and Rectal, Enteric Tube, Stoma or Indwelling Catheter, Enteric Contrast as designated per enteric contrast guidelines iv contrast (will be provided with radiology test) CT Chest W -Inject, intravenously, once for 1 dose.No IV access, insert saline lock prior to the beginning of sedation, infusion, injection of imaging exam. Discontinue saline lock post exam. If Pt. has a central line or IVAD, may access for administration according to line specific nursing protocol. Once exam is complete flush line and de-access according to line specific nursing protocol in the CT contrast administration guidelines link. VITAMIN E ACETATE ORAL Take 800 Units by mouth once daily. (Patient not taking: Reported on 11/04/2023) VITAMIN E, BULK, MISC 400 Units two times a day. No current facility-administered medications for this visit. 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 Family History Problem Relation Age of Onset Stroke Mother age 72 Diabetes Father age 90 and prostate cancer Cataract Father Prostate Cancer Father Psychiatry Sister A & W, controlled with medication Hypertension Sister Diabetes Sister A & W Diabetes Brother A & W Diabetes Brother A & W Diabetes Brother A & W Diabetes Brother A & W None Brother A & W Colon Cancer Brother Father--Prostate cancer low grade in his 60s. Lived to 90. Brother--Colon cancer-- from metastatic disease age 77. Daughter--Breast cancer age 39. Now Two years out. First cousin--Pancreas cancer (mothers are sisters). Breast cancer on 's side. ROS: Constitutional: No fever. No drenching night sweats. Neuro: No recent GO, vertigo, dizziness or imbalance. No symptoms of sensory neuropathy. HEENT: No recent change in voice, vision or hearing. Resp: No cough, wheeze of hemoptysis. No shortness of breath at rest. CVS: No exertional chest pain, PND or orthopnea. No extremity swelling/edema. No symptoms of claudication. No painful or tender varicose veins. GI: See above. : No dysuria or gross hematuria. No symptoms of bladder outlet obstruction. Endo: No hot flashes. No polyuria or polydipsia. No heat or cold intolerance. Musculoskeletal: No bone, back, joint and muscular pain. Derm: No current rash. No history of jaundice. No diffuse pruritis. Heme: No unusual bleeding and unexplained bruising. Psych: Normal mood. PHYSICAL EXAM: Vitals: Blood pressure 129/75, pulse 97, temperature 36.6 C (97.8 F), SpO2 98%. Well-appearing and in no acute distress. EYES: Sclerae are mildly icteric bilaterally. LYMPHATIC: There is no palpable cervical or supraclavicular adenopathy. RESPIRATORY: Inspiratory breath sounds are of normal intensity in all velazquez. No rales, wheezes or rhonchi CARDIOVASCULAR: Rhythm is regular. ABDOMEN: The abdomen is nondistended. No tenderness or mass. Extremities: No swelling or edema. SKIN: No rash. No petechiae. NEUROLOGIC: liquified natural gas technician II-XII are grossly intact. No focal motor weakness. LABS: Latest Ref Rng 11/18/2023 WBC 3.70 - 11.00 k/uL 11.67 (H) (P) RBC 4.20 - 6.00 m/uL 3.39 (L) (P) Hemoglobin 13.0 - 17.0 g/dL 9.5 (L) (P) Hematocrit 39.0 - 51.0 % 30.2 (L) (P) MCV 80.0 - 100.0 fL 89.1 (P) MCH 26.0 - 34.0 pg 28.0 (P) MCHC 30.5 - 36.0 g/dL 31.5 (P) RDW-CV 11.5 - 15.0 % 16.2 (H) (P) Platelet Count 150 - 400 k/uL 192 (P) MPV 9.0 - 12.7 fL 9.7 (P) ASSESSMENT/PLAN: (C25.0) 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) (primary encounter diagnosis) (K83.1) Biliary obstruction Assessment: -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 -Caris on tumor specimen pending. -Biliary obstruction on presentation. Plastic stent placed 08/06/2023. -Suspicious mesenteric nodule anterior to the lower right lobe of the liver. Prominent upper abdominal lymph nodes. -In-depth discussion with the patient and family today regarding approach to therapy. Not clear that he will be a candidate for resection and I recommended initiating systemic chemotherapy with FOLFIRINOX (family history of colon and pancreas cancer) while awaiting results of NGS and genetic testing. -UGT 1A1 intermediate metabolizer; DPYD normal metabolizer. -Biopsy of abdominal nodule nondiagnostic. -Genetic testing negative. 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 No actionable mutation. -Tolerating well overall. -CBC reviewed. Counts allow continued therapy. Continues to tolerate irinotecan very well overall despite intermediate metabolizer. -Pancreatic enzyme replacement has significantly helped diarrhea. -TB recs: Reviewed with him today. --Not operative candidate. --Continue with chemotherapy. Consider radiation for local control after 12 cycles completion. --May need to have a diagnostic lap for perionteal nodule. -Discussed today that goals of care are palliation and prolongation of overall survival. Plan: -Okay for cycle #7. -Continue Losartan 100 mg daily. -Monitor CA 19-9. -Will be seeing Dr. Nascimento 11/27. -Will need stent change. -Continue pancreatic enzyme replacement. Portions of this documentation were copied and pasted from previous office visit notes in order to provide a cohesive continuity of the history. The note has been reviewed and edited and updated as necessary. I spent a total of 30 minutes on the date of the service which included preparing to see the patient, [id number] patient care, completing clinical documentation, obtaining and/or reviewing separately obtained history, performing a medically appropriate examination, counseling and educating the patient/family/caregiver, ordering medications, tests, or procedures, communicating with other HCPs (not separately reported), and communicating results to the patient/family/caregiver. Phong Aj DO documented in this encounter [facility] 11-11-2023 Note [facility] 11-04-2023 Note [facility] 11-04-2023 History of Present illness Narrative Chief Complaint Patient presents with: Established Patient HPI: Kristin Lara is a 73 year old male who presents here today for evaluation for treatment tomorrow. Per Dr. Aj's previous note: H/o hypertension, renal lithiasis, BOSS and GI bleed (admitted 04/16/2021 [facility] for hematemesis; previous laparotomy with wedge resection of gastric fundus and Sam fundoplication 2009 for GI bleed) and recent diagnosis of pancreas cancer. Gastric ulcer secondary to NSAID use in 2009. Recently developed jaundice. CT A/P [facility] 07/30/2023: FINDINGS: The visualized lung bases are unremarkable. The visualized portions of the heart are within normal limits. Moderate degree of the intrahepatic biliary ductal dilatation. There is dilatation of the common bile duct. It measures 1.4 cm in transverse dimension. The distal portion of the common bile duct is not well visualized. There are surgical clips in the gallbladder fossa consistent with a prior cholecystectomy. Normal spleen. I suspect a 3.5 cm x 2.6 cm mass in the head of the pancreas. There is diffuse atrophy of the pancreas. There is diffuse irregular pancreatic ductal dilatation. Correlation with ERCP is recommended to rule out obstruction of the distal portion of the common bile duct. Soft tissue fullness is seen in the region of the celiac axis. Adenopathy should be ruled out. Normal bilateral adrenal glands. Normal right kidney. Nonobstructive 7.3 mm calculus in the lower pole calyx of the left kidney. There is a moderate-sized hiatal hernia. Prior subtotal gastrectomy. Normal small intestine. There are multiple colonic diverticula consistent with diverticulosis. The appendix is visualized and appears normal. Normal abdominal aorta. Normal inferior vena cava. Normal retroperitoneum. Normal urinary bladder. The prostate measures 3.7 cm x 4.5 cm. Central calcifications are seen. Results of prior bilateral inguinal hernia repair and lower anterior abdominal wall repair with mesh. There are diffuse degenerative changes of the visualized lumbar spine. Minimal anterior listhesis of L5 and S1 with a spondylolysis of the pars interarticularis of the L5 vertebrae. IMPRESSION: Dilated intrahepatic biliary duct as well as the pancreatic duct and common bile duct. Findings suggestive of a mass in the head of the pancreas. Correlation with ERCP is recommended. The patient is status post cholecystectomy. Nonobstructive calculus in the lower pole calyx of left kidney. Status post partial gastric resection. CT pancreas 08/05/2023: IMPRESSION: 3.2 cm pancreatic head mass with vascular involvement as described. Severe biliary dilation, slightly increased from 07/30/2023 CT. 1.2 cm perihepatic node/nodule, possibly metastatic. Few additional prominent periportal nodes; attention on follow-up. MORPHOLOGIC EVALUATION: a.Location: Head /Uncinate b. Size: 2.8 x 3.2 x 3.0 cm (CC x AP x T) (2:53, 4:44) c.Density:Hypodense d. Pancreatic duct abrupt cut off :Present e. Pancreatic duct upstream dilatation: Present, measuring up to 1.6 cm (2:48). f. Biliary tree abrupt cut off:Present e. Biliary tree upstream dilatation: Severe intrahepatic and extrahepatic biliary duct dilation, slightly increased from prior. ARTERIAL EVALUATION SMA Degree of solid soft tissue contact: None Degree of increased hazy attenuation/stranding contact: < 180 degrees (4:50) Focal vessel narrowing or contour irregularity: Absent Extension to first SMA branch: Probably present CELIAC AXIS Degree of solid soft tissue contact: None Degree of increased hazy attenuation/stranding contact: > 180 degrees Focal vessel narrowing or contour irregularity: Present, focal narrowing of the distal celiac trunk (3:155) ALEX Degree of solid soft tissue contact: None Degree of increased hazy attenuation/stranding contact: > 180 degrees Focal vessel narrowing or contour irregularity: Absent Extension to celiac axis: Present Extension to bifurcation of right/left hepatic artery: Absent ARTERIAL VARIANT ANATOMY: Absent VENOUS EVALUATION MPV: Present Degree of solid soft tissue contact: <180 degrees (7:42) Degree of increased hazy attenuation/stranding contact: < 180 degrees Focal vessel narrowing or contour irregularity: Absent SMV: Absent Degree of solid soft tissue contact: None Degree of increased hazy attenuation/stranding contact: None Focal vessel narrowing or contour irregularity: Absent Extension to first draining vein: Absent Venous thrombus: No venous thrombosis. Venous collaterals: None CONTIGUOUS ORGAN INVASION: None SUSPICIOUS LYMPH NODES: Few prominent upper abdominal nodes, for example: * 0.8 cm periportal node (5:44) * 1 cm portal caval node (5: 49) LIVER LESIONS: Absent. PERITONEUM: Ascites absent. 1.2 cm node/nodule anterior to the right hepatic lobe (5:53). OTHER ABDOMINAL FINDINGS: Spleen: No mass. No splenomegaly. Calcified granulomas. Adrenals: No mass. Kidneys: 8 mm left lower pole calculus. Subcentimeter lesions too small to characterize but likely benign. No solid mass or hydronephrosis. GI tract: No dilation or wall thickening. Moderate hiatal hernia. Surgical clips at the GE junction. Normal appendix. Colonic diverticulosis. Pelvis: No mass, ascites or fluid collection. Bones/Soft Tissues: Degenerative changes. Mesh anchors along the lower anterior abdominal wall. Lower thorax: A chest CT performed will be reported separately. Telesales Team Leader (topogram) images: No additional findings. Underwent EGD/EUD along with ERCP on 08/06/2023. On EUS was noted to have an irregular mass in the pancreatic head. It was hypoechoic. Measured 3 cm in maximal cross-sectional diameter. Borders were poorly defined. Fine-needle biopsy was performed. 2 passes with a 22-gauge shark core biopsy needle using transduodenal approach was utilized. The celiac plexus and celiac ganglia were visualized and showed no signs of significant endosonographic abnormality. ERCP--Was found to have a single severe segmental biliary stricture in the lower third of the main bile duct and middle third of the main bile duct. It was malignant appearing. Upper third of the duct was severely dilated. Sphincterotomy was performed. Biliary tree was swept and nothing was found. A plastic stent was placed into the common bile duct. Pathology: Pancreas, head, mass, biopsy: -Adenocarcinoma Initial OV: Normal appetite. Occasional nausea. Bowels moving. Stool color back to normal. No pain. Prior very active. Was dx borderline DM last year. Made an effort to lose weight--32 lbs. Was able to come off metformin. Current therapy: 1) FOLFIRINOX. Cycle 1 was administered FOLFOX. This was secondary to intermediate metabolizer for irinotecan and Pt. here today with family member. No new concerns today. Appetite: Ok. Energy level: It goes down for a few days. Denies fevers. Mouth:denies sores Resp:denies cough or sob at rest, terry with steps Cardiac:denies chest pain/palpitations GI:denies abd pain, n/v, loose stools 5-6x/day :denies dysuria/hematuria Extrem:denies pain Neuro:denies symptoms of neuropathy, +cold sensitivity last a week to mouth, fingers Skin:denies rashes Heme:denies bleeding The ROS is otherwise negative. Past medical history, appointments, medications, allergies reviewed. No changes. EXAM: BP 131/83 Pulse 90 Temp 36.9 C (98.5 F) (Temporal) Wt 80.9 kg (178 lb 4.8 oz) SpO2 97% BMI 26.33 kg/m APPEARANCE Well appearing, alert, in no acute distress, well-hydrated, well nourished. HEART RRR with normal S1 and S2, no murmurs LUNG clear to auscultation LYMPH NODES No cervical lymphadenopathy, No supraclavicular lymphadenopathy, and No axillary lymphadenopathy. ABDOMEN bowel sounds normoactive, soft, non-tender EXTREMITIES No edema NEURO Awake, alert and oriented x 3, Normal gait, and No involuntary motions. SKIN Skin color, texture, turgor normal, no suspicious rashes or lesions LABS: Latest Ref Rng 10/06/2023 10/20/2023 11/04/2023 WBC 3.70 - 11.00 k/uL 23.71 (H) 20.58 (H) 16.06 (H) (P) RBC 4.20 - 6.00 m/uL 3.82 (L) 3.45 (L) 3.55 (L) (P) Hemoglobin 13.0 - 17.0 g/dL 11.3 (L) 10.0 (L) 10.3 (L) (P) Hematocrit 39.0 - 51.0 % 33.1 (L) 30.1 (L) 31.8 (L) (P) MCV 80.0 - 100.0 fL 86.6 87.2 89.6 (P) MCH 26.0 - 34.0 pg 29.6 29.0 29.0 (P) MCHC 30.5 - 36.0 g/dL 34.1 33.2 32.4 (P) RDW-CV 11.5 - 15.0 % 15.1 (H) 15.5 (H) 16.4 (H) (P) Platelet Count 150 - 400 k/uL 274 287 267 (P) MPV 9.0 - 12.7 fL 9.2 9.1 9.8 (P) NRBC /100 WBC 0.0 0.9 Absolute nRBC <0.01 k/uL <0.01 0.19 (H) Neut% % 82.7 76.7 Abs Neut (ANC) 1.45 - 7.50 k/uL 19.61 (H) 15.78 (H) Lymph% % 12.1 13.8 Abs Lymph 1.00 - 4.00 k/uL 2.87 2.84 [place]% % 3.4 5.2 Abs [place] <0.87 k/uL 0.81 1.07 (H) Eosin% % 0.0 0.0 Abs Eosin <0.46 k/uL 0.00 0.00 Baso% % 0.0 0.9 Abs Baso <0.11 k/uL 0.00 0.19 (H) [place]% % 0.9 1.7 Myelo% % 0.9 1.7 Left Shift Present Present Platelet Estimate Adequate Adequate Giant Platelets Occasional Red Cell Morph Reviewed: see results of individual morphologies Reviewed: see results of individual morphologies Polychromasia Slight Slight Anisocytosis Present Present Ovalocytes Few Few RBC Fragments None Seen Few ! Tear Drop Few Toxic Granulation Present Present DTYPE Manual Manual CMP/Mag/CA19-9: Pending ASSESSMENT/PLAN: 1. 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) - ICD9: 157.0, ICD10: C25.0 2. Pancreatic malabsorption - ICD9: 577.8, 579.8, ICD10: K90.9, K86.9 Locally advanced/metastatic pancreas cancer. - Tolerating treatment fair d/t cold sensitivity/fatigue/diarrhea. - Reviewed CBC with pt. - CMP/Mag/CA19-9 pending. - Continue current medications. - Pancreatic enzyme replacement has helped diarrhea-Continue. - Proceed as scheduled tomorrow for #6 FOLFIRINOX pending all labs. - Follow up as scheduled otherwise. - Pt. aware to call office with any questions/concerns. The patient indicates understanding of these issues and agrees with the plan. All documentation from previous visit of 10/20/23-Dr. Aj was copied and pasted, documentation has been reviewed and edited as necessary for today's visit. Nichole Wyman APRN.SAFETY DEPOSIT SUPERVISOR documented in this encounter [facility] 10-27-2023 Telephone encounter Note Pt notified and voices understanding. Génesis Hernandez LPN [facility] 10-27-2023 Miscellaneous Notes Pt notified and voices understanding. Génesis Hernandez LPN Radiology did confirm that previously biopsied nodule did not change in size suggesting it is benign since the main tumor did respond to treatment. Plan will be to complete 6 cycles of treatment then refer back to Dr. Nascimento for opinion on surgery. Phong Aj DO Can let him know that the CT scans showed a decrease in size of the pancreas tumor. The radiologist did not comment on the small nodule that was previously biopsied so I sent an email asking him to take a look at that. If that has been stable or smaller, I will email his surgeon regarding opinion on resectability after 6 cycles of therapy. documented in this encounter [facility] 10-27-2023 Telephone encounter Note Radiology did confirm that previously biopsied nodule did not change in size suggesting it is benign since the main tumor did respond to treatment. Plan will be to complete 6 cycles of treatment then refer back to Dr. Nascimento for opinion on surgery. Phong Aj DO [facility] 10-26-2023 Telephone encounter Note Can let him know that the CT scans showed a decrease in size of the pancreas tumor. The radiologist did not comment on the small nodule that was previously biopsied so I sent an email asking him to take a look at that. If that has been stable or smaller, I will email his surgeon regarding opinion on resectability after 6 cycles of therapy. [facility] 10-21-2023 Telephone encounter Note SOCIAL WORK FOLLOW UP NOTE: [facility] Date of service: October 20, 2023 Kristin Lara is being seen for a follow up social work visit. Today's visit includes: spouse and patient TOPICS ADDRESSED: SW met with pt and his following his OV today. Pt and reports a recent prescription of Zenpep which is $1700 for a 16 day supply. Pt and asking for any assistance available with medication costs. A patient assistance program is avaiable through [employer]. SW discussed application process, pt and in agreement with applying. Pt signed application and agreed to bring a copy of his W-2 or 2022 1040. Once tax forms received and physician reviews and signs application, SW will fax to [employer] for review. PLAN: Assist with financial support applications and Continue follow up as needed F/U APPOINTMENT: PRN Assigned SW listed in Care Team tab: Yes PATRICK Guzman-Don [facility] 10-21-2023 Miscellaneous Notes SOCIAL WORK FOLLOW UP NOTE: [facility] Date of service: October 20, 2023 Kristin Lara is being seen for a follow up social work visit. Today's visit includes: spouse and patient TOPICS ADDRESSED: SW met with pt and his following his OV today. Pt and reports a recent prescription of Zenpep which is $1700 for a 16 day supply. Pt and asking for any assistance available with medication costs. A patient assistance program is avaiable through [employer]. SW discussed application process, pt and in agreement with applying. Pt signed application and agreed to bring a copy of his W-2 or 2022 1040. Once tax forms received and physician reviews and signs application, SW will fax to [employer] for review. PLAN: Assist with financial support applications and Continue follow up as needed F/U APPOINTMENT: PRN Assigned SW listed in Care Team tab: Yes PATRICK Guzman-Don documented in this encounter [facility] 10-20-2023 Note [facility] 10-20-2023 History of Present illness Narrative Patient is here for IVAD port flush/blood draw. IVAD is located in right upper chest. Site cleansed with Chloraprep IVAD accessed with a #20 gauge 3/4 non-coring Gripper needle Flush with 5cc's Normal Saline. Blood Return: Good. 10 cc's blood aspirated and discarded. Blood drawn for CBC and CMP. Flushed with: 20 ml Normal Saline. Non-coring needle removed. Paper tape applied to puncture site. Site negative for redness, edema or tenderness. Patient tolerated procedure well. Theresa Alejandra RN documented in this encounter [facility] 10-20-2023 Note [facility] 10-20-2023 History of Present illness Narrative Oncologic problem(s): 1) Locally advanced/metastatic pancreas cancer. HPI: The patient is a 73-year-old male with past medical history significant for hypertension, renal lithiasis, BOSS and GI bleed (admitted 04/16/2021 [facility] for hematemesis; previous laparotomy with wedge resection of gastric fundus and Sam fundoplication 2009 for GI bleed) and recent diagnosis of pancreas cancer. Gastric ulcer secondary to NSAID use in 2009. Recently developed jaundice. CT A/P [facility] 07/30/2023: FINDINGS: The visualized lung bases are unremarkable. The visualized portions of the heart are within normal limits. Moderate degree of the intrahepatic biliary ductal dilatation. There is dilatation of the common bile duct. It measures 1.4 cm in transverse dimension. The distal portion of the common bile duct is not well visualized. There are surgical clips in the gallbladder fossa consistent with a prior cholecystectomy. Normal spleen. I suspect a 3.5 cm x 2.6 cm mass in the head of the pancreas. There is diffuse atrophy of the pancreas. There is diffuse irregular pancreatic ductal dilatation. Correlation with ERCP is recommended to rule out obstruction of the distal portion of the common bile duct. Soft tissue fullness is seen in the region of the celiac axis. Adenopathy should be ruled out. Normal bilateral adrenal glands. Normal right kidney. Nonobstructive 7.3 mm calculus in the lower pole calyx of the left kidney. There is a moderate-sized hiatal hernia. Prior subtotal gastrectomy. Normal small intestine. There are multiple colonic diverticula consistent with diverticulosis. The appendix is visualized and appears normal. Normal abdominal aorta. Normal inferior vena cava. Normal retroperitoneum. Normal urinary bladder. The prostate measures 3.7 cm x 4.5 cm. Central calcifications are seen. Results of prior bilateral inguinal hernia repair and lower anterior abdominal wall repair with mesh. There are diffuse degenerative changes of the visualized lumbar spine. Minimal anterior listhesis of L5 and S1 with a spondylolysis of the pars interarticularis of the L5 vertebrae. IMPRESSION: Dilated intrahepatic biliary duct as well as the pancreatic duct and common bile duct. Findings suggestive of a mass in the head of the pancreas. Correlation with ERCP is recommended. The patient is status post cholecystectomy. Nonobstructive calculus in the lower pole calyx of left kidney. Status post partial gastric resection. CT pancreas 08/05/2023: IMPRESSION: 3.2 cm pancreatic head mass with vascular involvement as described. Severe biliary dilation, slightly increased from 07/30/2023 CT. 1.2 cm perihepatic node/nodule, possibly metastatic. Few additional prominent periportal nodes; attention on follow-up. MORPHOLOGIC EVALUATION: a.Location: Head /Uncinate b. Size: 2.8 x 3.2 x 3.0 cm (CC x AP x T) (2:53, 4:44) c.Density:Hypodense d. Pancreatic duct abrupt cut off :Present e. Pancreatic duct upstream dilatation: Present, measuring up to 1.6 cm (2:48). f. Biliary tree abrupt cut off:Present e. Biliary tree upstream dilatation: Severe intrahepatic and extrahepatic biliary duct dilation, slightly increased from prior. ARTERIAL EVALUATION SMA Degree of solid soft tissue contact: None Degree of increased hazy attenuation/stranding contact: < 180 degrees (4:50) Focal vessel narrowing or contour irregularity: Absent Extension to first SMA branch: Probably present CELIAC AXIS Degree of solid soft tissue contact: None Degree of increased hazy attenuation/stranding contact: > 180 degrees Focal vessel narrowing or contour irregularity: Present, focal narrowing of the distal celiac trunk (3:155) ALEX Degree of solid soft tissue contact: None Degree of increased hazy attenuation/stranding contact: > 180 degrees Focal vessel narrowing or contour irregularity: Absent Extension to celiac axis: Present Extension to bifurcation of right/left hepatic artery: Absent ARTERIAL VARIANT ANATOMY: Absent VENOUS EVALUATION MPV: Present Degree of solid soft tissue contact: <180 degrees (7:42) Degree of increased hazy attenuation/stranding contact: < 180 degrees Focal vessel narrowing or contour irregularity: Absent SMV: Absent Degree of solid soft tissue contact: None Degree of increased hazy attenuation/stranding contact: None Focal vessel narrowing or contour irregularity: Absent Extension to first draining vein: Absent Venous thrombus: No venous thrombosis. Venous collaterals: None CONTIGUOUS ORGAN INVASION: None SUSPICIOUS LYMPH NODES: Few prominent upper abdominal nodes, for example: * 0.8 cm periportal node (5:44) * 1 cm portal caval node (5: 49) LIVER LESIONS: Absent. PERITONEUM: Ascites absent. 1.2 cm node/nodule anterior to the right hepatic lobe (5:53). OTHER ABDOMINAL FINDINGS: Spleen: No mass. No splenomegaly. Calcified granulomas. Adrenals: No mass. Kidneys: 8 mm left lower pole calculus. Subcentimeter lesions too small to characterize but likely benign. No solid mass or hydronephrosis. GI tract: No dilation or wall thickening. Moderate hiatal hernia. Surgical clips at the GE junction. Normal appendix. Colonic diverticulosis. Pelvis: No mass, ascites or fluid collection. Bones/Soft Tissues: Degenerative changes. Mesh anchors along the lower anterior abdominal wall. Lower thorax: A chest CT performed will be reported separately. Telesales Team Leader (topogram) images: No additional findings. Underwent EGD/EUD along with ERCP on 08/06/2023. On EUS was noted to have an irregular mass in the pancreatic head. It was hypoechoic. Measured 3 cm in maximal cross-sectional diameter. Borders were poorly defined. Fine-needle biopsy was performed. 2 passes with a 22-gauge shark core biopsy needle using transduodenal approach was utilized. The celiac plexus and celiac ganglia were visualized and showed no signs of significant endosonographic abnormality. ERCP--Was found to have a single severe segmental biliary stricture in the lower third of the main bile duct and middle third of the main bile duct. It was malignant appearing. Upper third of the duct was severely dilated. Sphincterotomy was performed. Biliary tree was swept and nothing was found. A plastic stent was placed into the common bile duct. Pathology: Pancreas, head, mass, biopsy: -Adenocarcinoma Initial OV: Normal appetite. Occasional nausea. Bowels moving. Stool color back to normal. No pain. Prior very active. Was dx borderline DM last year. Made an effort to lose weight--32 lbs. Was able to come off metformin. Current therapy: 1) FOLFIRINOX. Cycle 1 was administered FOLFOX. This was secondary to intermediate metabolizer for irinotecan and Presents for ongoing oncologic management. Interim history: Neuropathy remains self limited cold induced. No symptoms of stomatitis. No nausea--Reglan scheduled first few days. Diarrhea improved with PEP. More fatigue this cycle. Stable dyspnea with exertion. Sinus congestion. No fever. Occasional cough that is nonproductive. PAST MEDICAL HISTORY Diagnosis Date Acute gastritis without mention of hemorrhage Diverticulosis of colon (without mention of hemorrhage) Hernia of unspecified site of abdominal cavity without mention of obstruction or gangrene hiatal Iron deficiency anemia, unspecified 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) 08/12/2023 Nonalcoholic steatohepatitis (BOSS) Unspecified essential hypertension Essential hypertension PAST SURGICAL HISTORY Procedure Laterality Date CHOLECYSTECTOMY 10/2004 laparoscopic COLONOSCOPY FLX DX W/COLLJ SPEC WHEN PFRMD 12/16/07 Extensive sigmoid diverticulosis COLONOSCOPY FLX DX W/COLLJ SPEC WHEN PFRMD 05/25/10 Extensive sigmoid diverticulosis EGD TRANSORAL BIOPSY SINGLE/MULTIPLE 12/16/07 HH, Schatzki ring,antral gastritis EGD TRANSORAL BIOPSY SINGLE/MULTIPLE 05/25/10 HH LAPAROSCOPY SURG RPR INITIAL INGUINAL HERNIA 02-01-08 RIGHT inguinal hernia LAPAROSCOPY SURG RPR INITIAL INGUINAL HERNIA LEFT inguinal hernia PAST SURGICAL HISTORY OF 05/14/2011 Hernia repair REMV CATARACT EXTRACAP,INSERT LENS Right 11/02/2020 [id number] +16.0 D ALLERGIES Allergen Reactions Phenergan [Prometha* Anaphylaxis vital signs dropped / patient coded Current Outpatient Medications Medication Sig dcelpy-ndgzbvxx-kqrblya (ZENPEP) 40,000-126,000- 168,000 unit delayed release capsule Take 2 capsules by mouth three times a day with meals. loratadine (CLARITIN) 10 mg tablet Take 10 mg by mouth as needed. amLODIPine (NORVASC) 5 mg tablet Take 1 tablet by mouth once daily. metoclopramide HCl (REGLAN) 10 mg tablet Take 1 tablet by mouth three times a day. but not within 6 hours of taking olanzapine. VITAMIN E ACETATE ORAL Take 800 Units by mouth once daily. losartan (COZAAR) 100 mg tablet Take 1 tablet by mouth once daily. lidocaine-prilocaine (EMLA) 2.5-2.5 % cream Apply 60 minutes prior to accessing port. dexAMETHasone (DECADRON) 4 mg tablet Take 1 tablet by mouth two times a day with meals. for 3 days beginning the day after chemotherapy treatment. OLANZapine (ZYPREXA) 5 mg tablet Take 1 tablet by mouth daily at bedtime. beginning the evening of first day of chemotherapy each cycle and take for 4 days. ondansetron (ZOFRAN) 8 mg tablet Take 1 tablet by mouth every 8 hours as needed (For chemotherapy induced nausea and vomiting.). Hold for 72 hours after each chemotherapy treatment. cholecalciferol, vitamin D3, (VITAMIN D3 ORAL) Take 1,000 Units by mouth once daily. potassium chloride ER (KLOR-CON) 20 mEq tablet Take 1 tablet by mouth two times a day. iv contrast (will be provided with radiology test) CT ABD/PEL -Inject, intravenously, once for 1 dose.No IV access, insert saline lock prior to the beginning of sedation, infusion, injection of imaging exam. Discontinue saline lock post exam. If Pt. has a central line or IVAD, may access for administration according to line specific nursing protocol. Once exam is complete flush line and de-access according to line specific nursing protocol in the CT contrast administration guidelines link. enteric contrast (will be provided with radiology test) For CT ABD/PEL W IVCON Routine order Administer, As Directed One Time Only, via Oral, Rectal, both Oral and Rectal, Enteric Tube, Stoma or Indwelling Catheter, Enteric Contrast as designated per enteric contrast guidelines iv contrast (will be provided with radiology test) CT Chest W -Inject, intravenously, once for 1 dose.No IV access, insert saline lock prior to the beginning of sedation, infusion, injection of imaging exam. Discontinue saline lock post exam. If Pt. has a central line or IVAD, may access for administration according to line specific nursing protocol. Once exam is complete flush line and de-access according to line specific nursing protocol in the CT contrast administration guidelines link. VITAMIN E, BULK, MISC 400 Units two times a day. No current facility-administered medications for this visit. 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 Family History Problem Relation Age of Onset Stroke Mother age 72 Diabetes Father age 90 and prostate cancer Cataract Father Prostate Cancer Father Psychiatry Sister A & W, controlled with medication Hypertension Sister Diabetes Sister A & W Diabetes Brother A & W Diabetes Brother A & W Diabetes Brother A & W Diabetes Brother A & W None Brother A & W Colon Cancer Brother Father--Prostate cancer low grade in his 60s. Lived to 90. Brother--Colon cancer-- from metastatic disease age 77. Daughter--Breast cancer age 39. Now Two years out. First cousin--Pancreas cancer (mothers are sisters). Breast cancer on 's side. ROS: Constitutional: No fever. No drenching night sweats. Neuro: No recent GO, vertigo, dizziness or imbalance. No symptoms of sensory neuropathy. HEENT: No recent change in voice, vision or hearing. Resp: No cough, wheeze of hemoptysis. No shortness of breath at rest. CVS: No exertional chest pain, PND or orthopnea. No extremity swelling/edema. No symptoms of claudication. No painful or tender varicose veins. GI: See above. : No dysuria or gross hematuria. No symptoms of bladder outlet obstruction. Endo: No hot flashes. No polyuria or polydipsia. No heat or cold intolerance. Musculoskeletal: No bone, back, joint and muscular pain. Derm: No current rash. No history of jaundice. No diffuse pruritis. Heme: No unusual bleeding and unexplained bruising. Psych: Normal mood. PHYSICAL EXAM: Vitals: There were no vitals taken for this visit. Well-appearing and in no acute distress. EYES: Sclerae are mildly icteric bilaterally. LYMPHATIC: There is no palpable cervical or supraclavicular adenopathy. RESPIRATORY: Inspiratory breath sounds are of normal intensity in all velazquez. No rales, wheezes or rhonchi CARDIOVASCULAR: Rhythm is regular. ABDOMEN: The abdomen is nondistended. No tenderness or mass. Extremities: No swelling or edema. SKIN: No rash. No petechiae. NEUROLOGIC: liquified natural gas technician II-XII are grossly intact. No focal motor weakness. 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 -Caris on tumor specimen pending. -Biliary obstruction on presentation. Plastic stent placed 08/06/2023. -Suspicious mesenteric nodule anterior to the lower right lobe of the liver. Prominent upper abdominal lymph nodes. -In-depth discussion with the patient and family today regarding approach to therapy. Not clear that he will be a candidate for resection and I recommended initiating systemic chemotherapy with FOLFIRINOX (family history of colon and pancreas cancer) while awaiting results of NGS and genetic testing. -UGT 1A1 intermediate metabolizer; DPYD normal metabolizer. -Biopsy of abdominal nodule nondiagnostic. -Genetic testing negative. 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 No actionable mutation. -Tolerating well overall. -CBC reviewed. Counts allow continued therapy. Continues to tolerate irinotecan very well overall despite intermediate metabolizer. -Pancreatic enzyme replacement has significantly helped diarrhea. -More fatigued this past cycle. Developing URI. -Personally reviewed CT images. The abdominal nodule is a few millimeters smaller. Pancreatic tumor may be about 4 to 5 mm smaller as well. Plan: -Okay for cycle #5. -Continue Losartan 100 mg daily. -Monitor CA 19-9. -CTs prior to cycle #9 pending final results of CTs from 10/15. -Continue pancreatic enzyme replacement. -Asked him to call should he develop worsening symptoms of URI, fever, cough or worsening shortness of breath. Portions of this documentation were copied and pasted from previous office visit notes in order to provide a cohesive continuity of the history. The note has been reviewed and edited and updated as necessary. I spent a total of 25 minutes on the date of the service which included preparing to see the patient, [id number] patient care, completing clinical documentation, obtaining and/or reviewing separately obtained history, performing a medically appropriate examination, counseling and educating the patient/family/caregiver, ordering medications, tests, or procedures, communicating with other HCPs (not separately reported), and communicating results to the patient/family/caregiver. Phong Aj DO documented in this encounter [facility] 10-16-2023 Note HNO ID: [id number] Author: ADRIAN CAMEJO RT(R) Service: ? Author Type: Technologist Type: Progress Notes Filed: 10/16/2023 16:01 Note Text: Radiology Service Progress Note DATE OF SERVICE: October 16, 2023 TIME: 4:00 PM PATIENT IDENTITY VERIFICATION COMPLETED USING TWO (2) STANDARD IDENTIFIERS: Name and Date of confirmed by patient verbally. FALL SCREENING: Has the patient had 2 falls in the last year or 1 fall with injury or currently using an Ambulatory Assistive Device (Walker, Cane, Wheelchair, Crutches, etc.)? No PATIENT GENDER DATA: Male PATIENT RELEVANT IMPLANT DATA REVIEWED: Not Applicable PATIENT PRESENTS WITH AN IMPLANTABLE OR ATTACHED SELLING SPECIALIST: N/A ALLERGIES: Reviewed and unchanged CONTRAST ALLERGY: NO. EXAM: CT -CONTRAST INDUCED NEPHROPATHY RISK FACTORS: Patient age > 60 years CREATININE: Creatinine Date Value Ref Range Status 10/06/2023 1.32 (H) 0.73 - 1.22 mg/dL Final 09/22/2023 1.10 0.73 - 1.22 mg/dL Final 09/08/2023 1.07 0.73 - 1.22 mg/dL Final Estimated Glomerular Filtration Rate Date Value Ref Range Status 10/06/2023 58 (L) >=60 mL/min/1.73m? Final Comment: Estimated Glomerular Filtration Rate (eGFR) is calculated using the 2020 CKD-EPI creatinine equation. This equation utilizes serum creatinine, sex, and age as parameters. The creatinine assay has traceable calibration to isotope dilution-mass spectrometry. Refer to KDIGO guidelines for clinical interpretation. In patients with unstable renal function, e.g. those with acute kidney injury, the eGFR may not accurately reflect actual GFR. eGFR- Date Value Ref Range Status 05/07/2011 >60 Final P.O.C.T. RESULTS: POC done: Yes, See Lab Tab October 16, 2023 TREATMENT: N/A PERIPHERAL IV DATA: Ambulatory: A peripheral IV was started in the Right antecubital site with a Angio cath: 22 gauge. RADIOLOGY DEPARTMENT: CT; Exam(s) Completed: Chest Abdomen Pelvis SIGNATURE: RT Roseann(R) PATIENT NAME: Kristin Lara DATE: October 16, 2023 TIME: 4:00 PM [facility] 10-16-2023 Note HNO ID: [id number] Author: ADRIAN CAMEJO RT(Luke) Service: ? Author Type: Technologist Type: Progress Notes Filed: 10/16/2023 15:59 Note Text: Radiology Service Progress Note DATE OF SERVICE: October 16, 2023 TIME: 3:59 PM PATIENT IDENTITY VERIFICATION COMPLETED USING TWO (2) STANDARD IDENTIFIERS: Name and Date of confirmed by patient verbally. FALL SCREENING: Has the patient had 2 falls in the last year or 1 fall with injury or currently using an Ambulatory Assistive Device (Walker, Cane, Wheelchair, Crutches, etc.)? No PATIENT GENDER DATA: Male PATIENT RELEVANT IMPLANT DATA REVIEWED: Not Applicable PATIENT PRESENTS WITH AN IMPLANTABLE OR ATTACHED SELLING SPECIALIST: N/A ALLERGIES: Reviewed and unchanged CONTRAST ALLERGY: NO. EXAM: CT -CONTRAST INDUCED NEPHROPATHY RISK FACTORS: Patient age > 60 years CREATININE: Creatinine Date Value Ref Range Status 10/06/2023 1.32 (H) 0.73 - 1.22 mg/dL Final 09/22/2023 1.10 0.73 - 1.22 mg/dL Final 09/08/2023 1.07 0.73 - 1.22 mg/dL Final Estimated Glomerular Filtration Rate Date Value Ref Range Status 10/06/2023 58 (L) >=60 mL/min/1.73m? Final Comment: Estimated Glomerular Filtration Rate (eGFR) is calculated using the 2020 CKD-EPI creatinine equation. This equation utilizes serum creatinine, sex, and age as parameters. The creatinine assay has traceable calibration to isotope dilution-mass spectrometry. Refer to KDIGO guidelines for clinical interpretation. In patients with unstable renal function, e.g. those with acute kidney injury, the eGFR may not accurately reflect actual GFR. eGFR- Date Value Ref Range Status 05/07/2011 >60 Final P.O.C.T. RESULTS: POC done: Yes, See Lab Tab October 16, 2023 TREATMENT: N/A PERIPHERAL IV DATA: Ambulatory: A peripheral IV was started in the Right antecubital site with a Angio cath: 22 gauge. RADIOLOGY DEPARTMENT: CT; Exam(s) Completed: Chest Abdomen Pelvis SIGNATURE: Adrian Camejo RT(R) PATIENT NAME: Kristin Lara DATE: October 16, 2023 TIME: 3:59 PM [facility] 10-16-2023 History of Present illness Narrative Radiology Service Progress Note DATE OF SERVICE: October 16, 2023 TIME: 4:00 PM PATIENT IDENTITY VERIFICATION COMPLETED USING TWO (2) STANDARD IDENTIFIERS: Name and Date of confirmed by patient verbally. FALL SCREENING: Has the patient had 2 falls in the last year or 1 fall with injury or currently using an Ambulatory Assistive Device (Walker, Cane, Wheelchair, Crutches, etc.)? No PATIENT GENDER DATA: Male PATIENT RELEVANT IMPLANT DATA REVIEWED: Not Applicable PATIENT PRESENTS WITH AN IMPLANTABLE OR ATTACHED SELLING SPECIALIST: N/A ALLERGIES: Reviewed and unchanged CONTRAST ALLERGY: NO. EXAM: CT -CONTRAST INDUCED NEPHROPATHY RISK FACTORS: Patient age > 60 years CREATININE: Creatinine Date Value Ref Range Status 10/06/2023 1.32 (H) 0.73 - 1.22 mg/dL Final 09/22/2023 1.10 0.73 - 1.22 mg/dL Final 09/08/2023 1.07 0.73 - 1.22 mg/dL Final Estimated Glomerular Filtration Rate Date Value Ref Range Status 10/06/2023 58 (L) >=60 mL/min/1.73m Final Comment: Estimated Glomerular Filtration Rate (eGFR) is calculated using the 2020 CKD-EPI creatinine equation. This equation utilizes serum creatinine, sex, and age as parameters. The creatinine assay has traceable calibration to isotope dilution-mass spectrometry. Refer to KDIGO guidelines for clinical interpretation. In patients with unstable renal function, e.g. those with acute kidney injury, the eGFR may not accurately reflect actual GFR. eGFR- Date Value Ref Range Status 05/07/2011 >60 Final P.O.C.T. RESULTS: POC done: Yes, See Lab Tab October 16, 2023 TREATMENT: N/A PERIPHERAL IV DATA: Ambulatory: A peripheral IV was started in the Right antecubital site with a Angio cath: 22 gauge. RADIOLOGY DEPARTMENT: CT; Exam(s) Completed: Chest Abdomen Pelvis SIGNATURE: Adrianmegan Camejo RT(R) PATIENT NAME: Kristin Lara DATE: October 16, 2023 TIME: 4:00 PM documented in this encounter [facility] 10-16-2023 History of Present illness Narrative Radiology Service Progress Note DATE OF SERVICE: October 16, 2023 TIME: 3:59 PM PATIENT IDENTITY VERIFICATION COMPLETED USING TWO (2) STANDARD IDENTIFIERS: Name and Date of confirmed by patient verbally. FALL SCREENING: Has the patient had 2 falls in the last year or 1 fall with injury or currently using an Ambulatory Assistive Device (Walker, Cane, Wheelchair, Crutches, etc.)? No PATIENT GENDER DATA: Male PATIENT RELEVANT IMPLANT DATA REVIEWED: Not Applicable PATIENT PRESENTS WITH AN IMPLANTABLE OR ATTACHED SELLING SPECIALIST: N/A ALLERGIES: Reviewed and unchanged CONTRAST ALLERGY: NO. EXAM: CT -CONTRAST INDUCED NEPHROPATHY RISK FACTORS: Patient age > 60 years CREATININE: Creatinine Date Value Ref Range Status 10/06/2023 1.32 (H) 0.73 - 1.22 mg/dL Final 09/22/2023 1.10 0.73 - 1.22 mg/dL Final 09/08/2023 1.07 0.73 - 1.22 mg/dL Final Estimated Glomerular Filtration Rate Date Value Ref Range Status 10/06/2023 58 (L) >=60 mL/min/1.73m Final Comment: Estimated Glomerular Filtration Rate (eGFR) is calculated using the 2020 CKD-EPI creatinine equation. This equation utilizes serum creatinine, sex, and age as parameters. The creatinine assay has traceable calibration to isotope dilution-mass spectrometry. Refer to KDIGO guidelines for clinical interpretation. In patients with unstable renal function, e.g. those with acute kidney injury, the eGFR may not accurately reflect actual GFR. eGFR- Date Value Ref Range Status 05/07/2011 >60 Final P.O.C.T. RESULTS: POC done: Yes, See Lab Tab October 16, 2023 TREATMENT: N/A PERIPHERAL IV DATA: Ambulatory: A peripheral IV was started in the Right antecubital site with a Angio cath: 22 gauge. 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 Pt has resolved malabsorption. Nutrition Intervention: -Consider meal prepping prior to treatment. - aim for 5-6 small/frequent meals - incorporate lean sources of protein/plant based proteins at meals - Stay well hydrated - sip on fluids throughout the day - start supplementation: Ensure Plus or Complete; Boost Plus 2 times per day -Strategies to manage treatment side effects: as needed Nutrition Monitoring & Evaluation: PO intake Supplement tolerance Wt status Biochemical Markers Skin integrity Plan of care Patient Condition: Pt presents for nutrition counseling for pancreatic cancer. Pt is currently being treated with oxaliplatin. Pt denies food allergies/intolerances. Per HPI: The patient is a 73-year-old male with past medical history significant for hypertension, renal lithiasis, BOSS and GI bleed (admitted 04/16/2021 [facility] for hematemesis; previous laparotomy with wedge resection of gastric fundus and Sam fundoplication 2009 for GI bleed) and recent diagnosis of pancreas cancer.Gastric ulcer secondary to NSAID use in 2009. Recently developed jaundice. I have confirmed and edited as necessary the hpi obtained by Dr. Aj on 08/12/23 and all reflect current status. Nutrition Assessment: Patient is stable from a nutritional standpoint. Patient's symptoms are: Minimal problems Has had chronic diarrhea (possible IBD) Starting first chemo today Diet History (24hr recall): Eats three meals per day plus snacks Drinks water, occasional pop Supplements: Vitamin D, Vitamin E (Dr. Johana BOSS), Prostate supplement Topics addressed: expected symptoms and changing eating habits in relation to concerns, healthy eating when feeling well, protein based foods, try using Ensure or Fairlife milk. Reviewed EPI and how to identify (no current concerns). Using a food diary as needed for symptoms. Follow up as needed. Pt verbalizes understanding. ELASTASE-1 CONCENTRATION >=200 ug/g 125 Abnormal Educational materials provided: none this visit Readiness to Learn: Cognitive ability: Alert and oriented Motivation to learn: Interested Family support: High - Very involved in pt care Instruction provided to: Patient, Spouse, and Daughter Patient learns best by: Multiple Methods Factors affecting learning: None Physical limitations affecting learning: None Anthropometrics: Height: Last 1 Encounter Ht Readings: Date: Ht: 08/12/2023 175.3 cm (5' 9 ) Current weight: Last 1 Encounter Wt Readings: Date: Wt: 08/12/2023 88 kg (194 lb) 05/21/22 07:49 Height 5 ft 11 in Weight: 230 lb Estimated body mass index is 27.32 kg/m as calculated from the following: Height as of 08/21/23: 175.3 cm (5' 9 ). Weight as of 10/06/23: 83.9 kg (185 lb). Resting Metabolic Rate: 1630 Weight Change: 34lb weight loss in 4 months; 14% in four months Dosing Weight: 88 kg Estimated kilocalorie needs: 3369-3635 kilocalories determined by 25-30 kcal/kg Estimated protein needs: 88-105 grams determined by 1.0-1.2 g/kg Dosing weight Estimated fluid needs: 2200 milliliters based on 1 mL per kcal Nutrition Focused Physical Exam: Unable to perform exam due to concerns for compromising current medical condition, will re-attempt during reassessment. Potential Signs of Inflammation: chronic condition Allergies: Phenergan [Promethazine Hcl] Medications: Current Outpatient Medications Medication Sig Dispense Refill umaudr-rocvcdwu-nxwtewp (ZENPEP) 40,000-126,000- 168,000 unit delayed release capsule Take 2 capsules by mouth three times a day with meals. 180 capsule 5 loratadine (CLARITIN) 10 mg tablet Take 10 mg by mouth as needed. potassium chloride ER (KLOR-CON) 20 mEq tablet Take 1 tablet by mouth two times a day. 60 tablet 2 amLODIPine (NORVASC) 5 mg tablet Take 1 tablet by mouth once daily. 30 tablet 5 metoclopramide HCl (REGLAN) 10 mg tablet Take 1 tablet by mouth three times a day. but not within 6 hours of taking olanzapine. 60 tablet 0 iv contrast (will be provided with radiology test) CT ABD/PEL -Inject, intravenously, once for 1 dose.No IV access, insert saline lock prior to the beginning of sedation, infusion, injection of imaging exam. Discontinue saline lock post exam. If Pt. has a central line or IVAD, may access for administration according to line specific nursing protocol. Once exam is complete flush line and de-access according to line specific nursing protocol in the CT contrast administration guidelines link. 1 Each 0 enteric contrast (will be provided with radiology test) For CT ABD/PEL W IVCON Routine order Administer, As Directed One Time Only, via Oral, Rectal, both Oral and Rectal, Enteric Tube, Stoma or Indwelling Catheter, Enteric Contrast as designated per enteric contrast guidelines 1 Each 0 iv contrast (will be provided with radiology test) CT Chest W -Inject, intravenously, once for 1 dose.No IV access, insert saline lock prior to the beginning of sedation, infusion, injection of imaging exam. Discontinue saline lock post exam. If Pt. has a central line or IVAD, may access for administration according to line specific nursing protocol. Once exam is complete flush line and de-access according to line specific nursing protocol in the CT contrast administration guidelines link. 1 Each 0 VITAMIN E ACETATE ORAL Take 800 Units by mouth once daily. losartan (COZAAR) 100 mg tablet Take 1 tablet by mouth once daily. 30 tablet 5 lidocaine-prilocaine (EMLA) 2.5-2.5 % cream Apply 60 minutes prior to accessing port. 15 g 2 dexAMETHasone (DECADRON) 4 mg tablet Take 1 tablet by mouth two times a day with meals. for 3 days beginning the day after chemotherapy treatment. 24 tablet 3 OLANZapine (ZYPREXA) 5 mg tablet Take 1 tablet by mouth daily at bedtime. beginning the evening of first day of chemotherapy each cycle and take for 4 days. 16 tablet 0 ondansetron (ZOFRAN) 8 mg tablet Take 1 tablet by mouth every 8 hours as needed (For chemotherapy induced nausea and vomiting.). Hold for 72 hours after each chemotherapy treatment. 30 tablet 2 VITAMIN E, BULK, MISC 400 Units two times a day. cholecalciferol, vitamin D3, (VITAMIN D3 ORAL) Take by mouth once daily. No current facility-administered medications for this visit. Need for Follow up: as needed Referred/Supervised by: Dr. Madai ROSENBAUM Billing Type: Initial Assess/15 min 2 units Billed Time: 30 minutes Signed by: Gin Lambert RD, LD documented in this encounter [facility] 10-14-2023 Telephone encounter Note Called pt's pharmacy with [employer] trial information: BIN: [id number] GROUP: [id number] [facility] Work Phone: 10-14-2023 Miscellaneous Notes Called pt's pharmacy with Zen[employer] trial information: BIN: [id number] GROUP: [id number] documented in this encounter [facility] 10-13-2023 Telephone encounter Note Gin, pt calls back stating that you had suggested pt let you know if he started this med as you may be able to help him get #100 free pills. Please let pt know. Génesis Hernandez LPN [facility] 10-13-2023 Miscellaneous Notes Gin pt calls back stating that you had suggested pt let you know if he started this med as you may be able to help him get #100 free pills. Please let pt know. Génesis Hernandez LPN Pt notified and voices understanding. Will picking tech Rx when he gets back from being out of town later this week. Génesis Hernandez LPN Stool testing indicates pancreatic enzyme replacement may help with his diarrhea. I sent a prescription to his pharmacy. He can see if cost is okay. Should take two capsules at the start of each meal TID. Phong Aj DO documented in this encounter [facility] 10-13-2023 Telephone encounter Note Pt notified and voices understanding. Will picking tech Rx when he gets back from being out of town later this week. Génesis Hernandez LPN [facility] 10-13-2023 Telephone encounter Note Stool testing indicates pancreatic enzyme replacement may help with his diarrhea. I sent a prescription to his pharmacy. He can see if cost is okay. Should take two capsules at the start of each meal TID. Phong Aj DO [facility] 10-08-2023 Telephone encounter Note Patient has multiple refills left at [facility], of both medications. Patient notified. Jasmina Morales LPN [facility] 10-08-2023 Miscellaneous Notes Patient has multiple refills left at [facility], of both medications. Patient notified. Jasmina Morales LPN Patient has been identified by name and date of : Yes, Provider madai Date 10/07 Time 821 Patient is out of medication Spouse phones for refill(s): Requested Prescriptions Pending Prescriptions Disp Refills amLODIPine (NORVASC) 5 mg tablet 30 tablet 5 Sig: Take 1 tablet by mouth once daily. dexAMETHasone (DECADRON) 4 mg tablet 24 tablet 3 Sig: Take 1 tablet by mouth two times a day with meals. for 3 days beginning the day after chemotherapy treatment. Date of last office visit in primary care: 11/14/2011 Date of next office visit in primary care: 10/09/2023 Please advise. Thank you. Nemo Fontaine. documented in this encounter [facility] 10-08-2023 Telephone encounter Note Patient has been identified by name and date of : Yes, Provider madai Date 10/07 Time 821 Patient is out of medication Spouse phones for refill(s): Requested Prescriptions Pending Prescriptions Disp Refills amLODIPine (NORVASC) 5 mg tablet 30 tablet 5 Sig: Take 1 tablet by mouth once daily. dexAMETHasone (DECADRON) 4 mg tablet 24 tablet 3 Sig: Take 1 tablet by mouth two times a day with meals. for 3 days beginning the day after chemotherapy treatment. Date of last office visit in primary care: 11/14/2011 Date of next office visit in primary care: 10/09/2023 Please advise. Thank you. Nemo Fontaine. [facility] 10-07-2023 Telephone encounter Note Chemo nurse discussed all information with patient. Patient had potassium infusion today. Jasmina Morales LPN [facility] 10-07-2023 Miscellaneous Notes Chemo nurse discussed all information with patient. Patient had potassium infusion today. Jasmina Morales LPN Spoke with pt. Informed his potassium is low, Dr. Aj wants pt. To increase potassium to 1 tablet twice daily, also He will need a potassium infusion with tomorrow's treatment. Also needs some hydration. Pt. Needs to picking tech a fecal elastase test at lab and tomorrow when here Needs educated about using more Lomotil to try to help control diarrhea. Pt. Voiced understanding. Nichole Randall LPN Appointment note adjusted. Quynh Nuñez He will need a potassium infusion with tomorrow's treatment. Also needs some hydration. I would like him to do a fecal elastase test as well to see if the pancreatic enzyme medication we talked about would be helpful to him. Increase potassium supplement to twice daily. Needs educated about using more Lomotil to try to help control diarrhea. Phong Aj DO documented in this encounter [facility] 10-07-2023 Note HNO ID: [id number] Author: VIN CARDENAS RN Service: ? Author Type: Registered Nurse Type: Progress Notes Filed: 10/07/2023 14:06 Note Text: No changes to assessment from OV yesterday. Vin Cardenas RN [facility] 10-07-2023 History of Present illness Narrative No changes to assessment from OV yesterday. Vin Cardenas RN documented in this encounter [facility] 10-06-2023 Telephone encounter Note Spoke with pt. Informed his potassium is low, Dr. Aj wants pt. To increase potassium to 1 tablet twice daily, also He will need a potassium infusion with tomorrow's treatment. Also needs some hydration. Pt. Needs to picking tech a fecal elastase test at lab and tomorrow when here Needs educated about using more Lomotil to try to help control diarrhea. Pt. Voiced understanding. Nichole Randall LPN [facility] 10-06-2023 Telephone encounter Note Appointment note adjusted. Quynh Nuñez [facility] 10-06-2023 Telephone encounter Note He will need a potassium infusion with tomorrow's treatment. Also needs some hydration. I would like him to do a fecal elastase test as well to see if the pancreatic enzyme medication we talked about would be helpful to him. Increase potassium supplement to twice daily. Needs educated about using more Lomotil to try to help control diarrhea. Phong Aj DO [facility] 10-06-2023 Note [facility] 10-06-2023 History of Present illness Narrative Oncologic problem(s): 1) Locally advanced/metastatic pancreas cancer. HPI: The patient is a 73-year-old male with past medical history significant for hypertension, renal lithiasis, BOSS and GI bleed (admitted 04/16/2021 [facility] for hematemesis; previous laparotomy with wedge resection of gastric fundus and Sam fundoplication 2009 for GI bleed) and recent diagnosis of pancreas cancer. Gastric ulcer secondary to NSAID use in 2009. Recently developed jaundice. CT A/P [facility] 07/30/2023: FINDINGS: The visualized lung bases are unremarkable. The visualized portions of the heart are within normal limits. Moderate degree of the intrahepatic biliary ductal dilatation. There is dilatation of the common bile duct. It measures 1.4 cm in transverse dimension. The distal portion of the common bile duct is not well visualized. There are surgical clips in the gallbladder fossa consistent with a prior cholecystectomy. Normal spleen. I suspect a 3.5 cm x 2.6 cm mass in the head of the pancreas. There is diffuse atrophy of the pancreas. There is diffuse irregular pancreatic ductal dilatation. Correlation with ERCP is recommended to rule out obstruction of the distal portion of the common bile duct. Soft tissue fullness is seen in the region of the celiac axis. Adenopathy should be ruled out. Normal bilateral adrenal glands. Normal right kidney. Nonobstructive 7.3 mm calculus in the lower pole calyx of the left kidney. There is a moderate-sized hiatal hernia. Prior subtotal gastrectomy. Normal small intestine. There are multiple colonic diverticula consistent with diverticulosis. The appendix is visualized and appears normal. Normal abdominal aorta. Normal inferior vena cava. Normal retroperitoneum. Normal urinary bladder. The prostate measures 3.7 cm x 4.5 cm. Central calcifications are seen. Results of prior bilateral inguinal hernia repair and lower anterior abdominal wall repair with mesh. There are diffuse degenerative changes of the visualized lumbar spine. Minimal anterior listhesis of L5 and S1 with a spondylolysis of the pars interarticularis of the L5 vertebrae. IMPRESSION: Dilated intrahepatic biliary duct as well as the pancreatic duct and common bile duct. Findings suggestive of a mass in the head of the pancreas. Correlation with ERCP is recommended. The patient is status post cholecystectomy. Nonobstructive calculus in the lower pole calyx of left kidney. Status post partial gastric resection. CT pancreas 08/05/2023: IMPRESSION: 3.2 cm pancreatic head mass with vascular involvement as described. Severe biliary dilation, slightly increased from 07/30/2023 CT. 1.2 cm perihepatic node/nodule, possibly metastatic. Few additional prominent periportal nodes; attention on follow-up. MORPHOLOGIC EVALUATION: a.Location: Head /Uncinate b. Size: 2.8 x 3.2 x 3.0 cm (CC x AP x T) (2:53, 4:44) c.Density:Hypodense d. Pancreatic duct abrupt cut off :Present e. Pancreatic duct upstream dilatation: Present, measuring up to 1.6 cm (2:48). f. Biliary tree abrupt cut off:Present e. Biliary tree upstream dilatation: Severe intrahepatic and extrahepatic biliary duct dilation, slightly increased from prior. ARTERIAL EVALUATION SMA Degree of solid soft tissue contact: None Degree of increased hazy attenuation/stranding contact: < 180 degrees (4:50) Focal vessel narrowing or contour irregularity: Absent Extension to first SMA branch: Probably present CELIAC AXIS Degree of solid soft tissue contact: None Degree of increased hazy attenuation/stranding contact: > 180 degrees Focal vessel narrowing or contour irregularity: Present, focal narrowing of the distal celiac trunk (3:155) ALEX Degree of solid soft tissue contact: None Degree of increased hazy attenuation/stranding contact: > 180 degrees Focal vessel narrowing or contour irregularity: Absent Extension to celiac axis: Present Extension to bifurcation of right/left hepatic artery: Absent ARTERIAL VARIANT ANATOMY: Absent VENOUS EVALUATION MPV: Present Degree of solid soft tissue contact: <180 degrees (7:42) Degree of increased hazy attenuation/stranding contact: < 180 degrees Focal vessel narrowing or contour irregularity: Absent SMV: Absent Degree of solid soft tissue contact: None Degree of increased hazy attenuation/stranding contact: None Focal vessel narrowing or contour irregularity: Absent Extension to first draining vein: Absent Venous thrombus: No venous thrombosis. Venous collaterals: None CONTIGUOUS ORGAN INVASION: None SUSPICIOUS LYMPH NODES: Few prominent upper abdominal nodes, for example: * 0.8 cm periportal node (5:44) * 1 cm portal caval node (5: 49) LIVER LESIONS: Absent. PERITONEUM: Ascites absent. 1.2 cm node/nodule anterior to the right hepatic lobe (5:53). OTHER ABDOMINAL FINDINGS: Spleen: No mass. No splenomegaly. Calcified granulomas. Adrenals: No mass. Kidneys: 8 mm left lower pole calculus. Subcentimeter lesions too small to characterize but likely benign. No solid mass or hydronephrosis. GI tract: No dilation or wall thickening. Moderate hiatal hernia. Surgical clips at the GE junction. Normal appendix. Colonic diverticulosis. Pelvis: No mass, ascites or fluid collection. Bones/Soft Tissues: Degenerative changes. Mesh anchors along the lower anterior abdominal wall. Lower thorax: A chest CT performed will be reported separately. Telesales Team Leader (topogram) images: No additional findings. Underwent EGD/EUD along with ERCP on 08/06/2023. On EUS was noted to have an irregular mass in the pancreatic head. It was hypoechoic. Measured 3 cm in maximal cross-sectional diameter. Borders were poorly defined. Fine-needle biopsy was performed. 2 passes with a 22-gauge shark core biopsy needle using transduodenal approach was utilized. The celiac plexus and celiac ganglia were visualized and showed no signs of significant endosonographic abnormality. ERCP--Was found to have a single severe segmental biliary stricture in the lower third of the main bile duct and middle third of the main bile duct. It was malignant appearing. Upper third of the duct was severely dilated. Sphincterotomy was performed. Biliary tree was swept and nothing was found. A plastic stent was placed into the common bile duct. Pathology: Pancreas, head, mass, biopsy: -Adenocarcinoma Initial OV: Normal appetite. Occasional nausea. Bowels moving. Stool color back to normal. No pain. Prior very active. Was dx borderline DM last year. Made an effort to lose weight--32 lbs. Was able to come off metformin. Current therapy: 1) FOLFIRINOX. Cycle 1 was administered FOLFOX. This was secondary to intermediate metabolizer for irinotecan and Presents for ongoing oncologic management. Interim history: Neuropathy remains self limited cold induced. No symptoms of stomatitis. No nausea--Reglan scheduled first few days. Still has diarrhea not as bad this week. This has been a chronic problem since he had gallbladder surgery. Has not tried fiber as of yet. Has noticed more fatigue and some shortness of breath with exertion. He still working pretty hard on a daily basis. PAST MEDICAL HISTORY Diagnosis Date Acute gastritis without mention of hemorrhage Diverticulosis of colon (without mention of hemorrhage) Hernia of unspecified site of abdominal cavity without mention of obstruction or gangrene hiatal Iron deficiency anemia, unspecified 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) 08/12/2023 Nonalcoholic steatohepatitis (BOSS) Unspecified essential hypertension Essential hypertension PAST SURGICAL HISTORY Procedure Laterality Date CHOLECYSTECTOMY 10/2004 laparoscopic COLONOSCOPY FLX DX W/COLLJ SPEC WHEN PFRMD 12/16/07 Extensive sigmoid diverticulosis COLONOSCOPY FLX DX W/COLLJ SPEC WHEN PFRMD 05/25/10 Extensive sigmoid diverticulosis EGD TRANSORAL BIOPSY SINGLE/MULTIPLE 12/16/07 HH, Schatzki ring,antral gastritis EGD TRANSORAL BIOPSY SINGLE/MULTIPLE 05/25/10 HH LAPAROSCOPY SURG RPR INITIAL INGUINAL HERNIA 02-01-08 RIGHT inguinal hernia LAPAROSCOPY SURG RPR INITIAL INGUINAL HERNIA 8-25-0/8 LEFT inguinal hernia PAST SURGICAL HISTORY OF 05/14/2011 Hernia repair REMV CATARACT EXTRACAP,INSERT LENS Right 11/02/2020 [id number] +16.0 D ALLERGIES Allergen Reactions Phenergan [Prometha* Anaphylaxis vital signs dropped / patient coded Current Outpatient Medications Medication Sig loratadine (CLARITIN) 10 mg tablet Take 10 mg by mouth as needed. potassium chloride ER (KLOR-CON) 20 mEq tablet Take 1 tablet by mouth once daily. amLODIPine (NORVASC) 5 mg tablet Take 1 tablet by mouth once daily. metoclopramide HCl (REGLAN) 10 mg tablet Take 1 tablet by mouth three times a day. but not within 6 hours of taking olanzapine. VITAMIN E ACETATE ORAL Take 800 Units by mouth once daily. losartan (COZAAR) 100 mg tablet Take 1 tablet by mouth once daily. lidocaine-prilocaine (EMLA) 2.5-2.5 % cream Apply 60 minutes prior to accessing port. dexAMETHasone (DECADRON) 4 mg tablet Take 1 tablet by mouth two times a day with meals. for 3 days beginning the day after chemotherapy treatment. OLANZapine (ZYPREXA) 5 mg tablet Take 1 tablet by mouth daily at bedtime. beginning the evening of first day of chemotherapy each cycle and take for 4 days. ondansetron (ZOFRAN) 8 mg tablet Take 1 tablet by mouth every 8 hours as needed (For chemotherapy induced nausea and vomiting.). Hold for 72 hours after each chemotherapy treatment. cholecalciferol, vitamin D3, (VITAMIN D3 ORAL) Take by mouth once daily. iv contrast (will be provided with radiology test) CT ABD/PEL -Inject, intravenously, once for 1 dose.No IV access, insert saline lock prior to the beginning of sedation, infusion, injection of imaging exam. Discontinue saline lock post exam. If Pt. has a central line or IVAD, may access for administration according to line specific nursing protocol. Once exam is complete flush line and de-access according to line specific nursing protocol in the CT contrast administration guidelines link. enteric contrast (will be provided with radiology test) For CT ABD/PEL W IVCON Routine order Administer, As Directed One Time Only, via Oral, Rectal, both Oral and Rectal, Enteric Tube, Stoma or Indwelling Catheter, Enteric Contrast as designated per enteric contrast guidelines iv contrast (will be provided with radiology test) CT Chest W -Inject, intravenously, once for 1 dose.No IV access, insert saline lock prior to the beginning of sedation, infusion, injection of imaging exam. Discontinue saline lock post exam. If Pt. has a central line or IVAD, may access for administration according to line specific nursing protocol. Once exam is complete flush line and de-access according to line specific nursing protocol in the CT contrast administration guidelines link. VITAMIN E, BULK, MISC 400 Units two times a day. No current facility-administered medications for this visit. 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 Family History Problem Relation Age of Onset Stroke Mother age 72 Diabetes Father age 90 and prostate cancer Cataract Father Prostate Cancer Father Psychiatry Sister A & W, controlled with medication Hypertension Sister Diabetes Sister A & W Diabetes Brother A & W Diabetes Brother A & W Diabetes Brother A & W Diabetes Brother A & W None Brother A & W Colon Cancer Brother Father--Prostate cancer low grade in his 60s. Lived to 90. Brother--Colon cancer-- from metastatic disease age 77. Daughter--Breast cancer age 39. Now Two years out. First cousin--Pancreas cancer (mothers are sisters). Breast cancer on 's side. ROS: Constitutional: No fever. No drenching night sweats. Neuro: No recent GO, vertigo, dizziness or imbalance. No symptoms of sensory neuropathy. HEENT: No recent change in voice, vision or hearing. Resp: No cough, wheeze of hemoptysis. No shortness of breath at rest. CVS: No exertional chest pain, PND or orthopnea. No extremity swelling/edema. No symptoms of claudication. No painful or tender varicose veins. GI: See above. : No dysuria or gross hematuria. No symptoms of bladder outlet obstruction. Endo: No hot flashes. No polyuria or polydipsia. No heat or cold intolerance. Musculoskeletal: No bone, back, joint and muscular pain. Derm: No current rash. No history of jaundice. No diffuse pruritis. Heme: No unusual bleeding and unexplained bruising. Psych: Normal mood. PHYSICAL EXAM: Vitals: Blood pressure 121/77, pulse 103, temperature 37 C (98.6 F), temperature source Temporal, weight 83.9 kg (185 lb), SpO2 98%. Well-appearing and in no acute distress. EYES: Sclerae are mildly icteric bilaterally. LYMPHATIC: There is no palpable cervical or supraclavicular adenopathy. RESPIRATORY: Inspiratory breath sounds are of normal intensity in all velazquez. No rales, wheezes or rhonchi CARDIOVASCULAR: Rhythm is regular. ABDOMEN: The abdomen is nondistended. No tenderness or mass. Extremities: No swelling or edema. SKIN: No rash. No petechiae. NEUROLOGIC: liquified natural gas technician II-XII are grossly intact. No focal motor weakness. LABS: Latest Ref Rng 10/06/2023 WBC 3.70 - 11.00 k/uL 23.71 (H) (P) RBC 4.20 - 6.00 m/uL 3.82 (L) (P) Hemoglobin 13.0 - 17.0 g/dL 11.3 (L) (P) Hematocrit 39.0 - 51.0 % 33.1 (L) (P) MCV 80.0 - 100.0 fL 86.6 (P) MCH 26.0 - 34.0 pg 29.6 (P) MCHC 30.5 - 36.0 g/dL 34.1 (P) RDW-CV 11.5 - 15.0 % 15.1 (H) (P) Platelet Count 150 - 400 k/uL 274 (P) MPV 9.0 - 12.7 fL 9.2 (P) ASSESSMENT/PLAN: (C25.0) 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) (primary encounter diagnosis) (K83.1) Biliary obstruction Assessment: -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 -Caris on tumor specimen pending. -Biliary obstruction on presentation. Plastic stent placed 08/06/2023. -Suspicious mesenteric nodule anterior to the lower right lobe of the liver. Prominent upper abdominal lymph nodes. -In-depth discussion with the patient and family today regarding approach to therapy. Not clear that he will be a candidate for resection and I recommended initiating systemic chemotherapy with FOLFIRINOX (family history of colon and pancreas cancer) while awaiting results of NGS and genetic testing. -UGT 1A1 intermediate metabolizer; DPYD normal metabolizer. -Biopsy of abdominal nodule nondiagnostic. -Genetic testing negative. 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 No actionable mutation. -Tolerating very well overall. -CBC reviewed. Counts allow continued therapy. Continues to tolerate irinotecan very well overall despite intermediate metabolizer. -Chronic diarrhea since time of cholecystectomy. Discussed adding fiber. -BP better at home since stopping HCTZ and increasing losartan. Plan: -Okay for cycle #4. -Continue Losartan 100 mg daily. -Monitor CA 19-9. -CTs prior to cycle #5. -Trial of Metamucil. -Check fecal fat if that doesn't help. Portions of this documentation were copied and pasted from previous office visit notes in order to provide a cohesive continuity of the history. The note has been reviewed and edited and updated as necessary. I spent a total of 20 minutes on the date of the service which included preparing to see the patient, [id number] patient care, completing clinical documentation, obtaining and/or reviewing separately obtained history, performing a medically appropriate examination, counseling and educating the patient/family/caregiver, ordering medications, tests, or procedures, communicating with other HCPs (not separately reported), and communicating results to the patient/family/caregiver. Phong Aj DO documented in this encounter [facility] 10-06-2023 Note [facility] 10-06-2023 History of Present illness Narrative Patient is here for IVAD port flush/blood draw. IVAD is located in right upper chest. Site cleansed with Chloraprep IVAD accessed with a #20 gauge 3/4 non-coring Gripper needle Flush with 5cc's Normal Saline. Blood Return: Good. 10 cc's blood aspirated and discarded. Blood drawn for CBC, CMP, CEA, and MAG. Flushed with: 20 ml Normal Saline. Non-coring needle removed. Paper tape applied to puncture site. Site negative for redness, edema or tenderness. Patient tolerated procedure well. Theresa Alejandra RN documented in this encounter [facility] 09-25-2023 Miscellaneous Notes Patient here for pump disconnect. Scheduled with me at the desk. Sara Crouch Orders pended. Jasmina Morales LPN Check out comments: CT C/A/P on 10/16/2023. As scheduled otherwise documented in this encounter [facility] 09-24-2023 Miscellaneous Notes Spouse is aware to have patient take amlodipine in addition to losartan. Jasmina Morales LPN Spouse called asking if Amlodipine is in addition to or in replace of losartan. Please advise. documented in this encounter [facility] 09-23-2023 History of Present illness Narrative Patient came in today with BP of 153/95. After 10 minutes BP was rechecked and was 149/100. Patient stated that he took his 100mg of losartan this morning prior to appt. Dr. Aj notified of BP's. Per - continue treatment + rx for amlodipine 5mg sent to pharmacy along with potassium chloride 20 mEq to take daily. Patient notified of medication changes and to continue to monitor his BP at home. documented in this encounter [facility] 09-23-2023 Note [facility] 09-22-2023 Note [facility] 09-22-2023 History of Present illness Narrative Oncologic problem(s): 1) Locally advanced/metastatic pancreas cancer. HPI: The patient is a 73-year-old male with past medical history significant for hypertension, renal lithiasis, BOSS and GI bleed (admitted 04/16/2021 [facility] for hematemesis; previous laparotomy with wedge resection of gastric fundus and Sam fundoplication 2009 for GI bleed) and recent diagnosis of pancreas cancer. Gastric ulcer secondary to NSAID use in 2010. Recently developed jaundice. CT A/P [facility] 07/30/2023: FINDINGS: The visualized lung bases are unremarkable. The visualized portions of the heart are within normal limits. Moderate degree of the intrahepatic biliary ductal dilatation. There is dilatation of the common bile duct. It measures 1.4 cm in transverse dimension. The distal portion of the common bile duct is not well visualized. There are surgical clips in the gallbladder fossa consistent with a prior cholecystectomy. Normal spleen. I suspect a 3.5 cm x 2.6 cm mass in the head of the pancreas. There is diffuse atrophy of the pancreas. There is diffuse irregular pancreatic ductal dilatation. Correlation with ERCP is recommended to rule out obstruction of the distal portion of the common bile duct. Soft tissue fullness is seen in the region of the celiac axis. Adenopathy should be ruled out. Normal bilateral adrenal glands. Normal right kidney. Nonobstructive 7.3 mm calculus in the lower pole calyx of the left kidney. There is a moderate-sized hiatal hernia. Prior subtotal gastrectomy. Normal small intestine. There are multiple colonic diverticula consistent with diverticulosis. The appendix is visualized and appears normal. Normal abdominal aorta. Normal inferior vena cava. Normal retroperitoneum. Normal urinary bladder. The prostate measures 3.7 cm x 4.5 cm. Central calcifications are seen. Results of prior bilateral inguinal hernia repair and lower anterior abdominal wall repair with mesh. There are diffuse degenerative changes of the visualized lumbar spine. Minimal anterior listhesis of L5 and S1 with a spondylolysis of the pars interarticularis of the L5 vertebrae. IMPRESSION: Dilated intrahepatic biliary duct as well as the pancreatic duct and common bile duct. Findings suggestive of a mass in the head of the pancreas. Correlation with ERCP is recommended. The patient is status post cholecystectomy. Nonobstructive calculus in the lower pole calyx of left kidney. Status post partial gastric resection. CT pancreas 08/05/2023: IMPRESSION: 3.2 cm pancreatic head mass with vascular involvement as described. Severe biliary dilation, slightly increased from 07/30/2023 CT. 1.2 cm perihepatic node/nodule, possibly metastatic. Few additional prominent periportal nodes; attention on follow-up. MORPHOLOGIC EVALUATION: a.Location: Head /Uncinate b. Size: 2.8 x 3.2 x 3.0 cm (CC x AP x T) (2:53, 4:44) c.Density:Hypodense d. Pancreatic duct abrupt cut off :Present e. Pancreatic duct upstream dilatation: Present, measuring up to 1.6 cm (2:48). f. Biliary tree abrupt cut off:Present e. Biliary tree upstream dilatation: Severe intrahepatic and extrahepatic biliary duct dilation, slightly increased from prior. ARTERIAL EVALUATION SMA Degree of solid soft tissue contact: None Degree of increased hazy attenuation/stranding contact: < 180 degrees (4:50) Focal vessel narrowing or contour irregularity: Absent Extension to first SMA branch: Probably present CELIAC AXIS Degree of solid soft tissue contact: None Degree of increased hazy attenuation/stranding contact: > 180 degrees Focal vessel narrowing or contour irregularity: Present, focal narrowing of the distal celiac trunk (3:155) ALEX Degree of solid soft tissue contact: None Degree of increased hazy attenuation/stranding contact: > 180 degrees Focal vessel narrowing or contour irregularity: Absent Extension to celiac axis: Present Extension to bifurcation of right/left hepatic artery: Absent ARTERIAL VARIANT ANATOMY: Absent VENOUS EVALUATION MPV: Present Degree of solid soft tissue contact: <180 degrees (7:42) Degree of increased hazy attenuation/stranding contact: < 180 degrees Focal vessel narrowing or contour irregularity: Absent SMV: Absent Degree of solid soft tissue contact: None Degree of increased hazy attenuation/stranding contact: None Focal vessel narrowing or contour irregularity: Absent Extension to first draining vein: Absent Venous thrombus: No venous thrombosis. Venous collaterals: None CONTIGUOUS ORGAN INVASION: None SUSPICIOUS LYMPH NODES: Few prominent upper abdominal nodes, for example: * 0.8 cm periportal node (5:44) * 1 cm portal caval node (5: 49) LIVER LESIONS: Absent. PERITONEUM: Ascites absent. 1.2 cm node/nodule anterior to the right hepatic lobe (5:53). OTHER ABDOMINAL FINDINGS: Spleen: No mass. No splenomegaly. Calcified granulomas. Adrenals: No mass. Kidneys: 8 mm left lower pole calculus. Subcentimeter lesions too small to characterize but likely benign. No solid mass or hydronephrosis. GI tract: No dilation or wall thickening. Moderate hiatal hernia. Surgical clips at the GE junction. Normal appendix. Colonic diverticulosis. Pelvis: No mass, ascites or fluid collection. Bones/Soft Tissues: Degenerative changes. Mesh anchors along the lower anterior abdominal wall. Lower thorax: A chest CT performed will be reported separately. Telesales Team Leader (topogram) images: No additional findings. Underwent EGD/EUD along with ERCP on 08/06/2023. On EUS was noted to have an irregular mass in the pancreatic head. It was hypoechoic. Measured 3 cm in maximal cross-sectional diameter. Borders were poorly defined. Fine-needle biopsy was performed. 2 passes with a 22-gauge shark core biopsy needle using transduodenal approach was utilized. The celiac plexus and celiac ganglia were visualized and showed no signs of significant endosonographic abnormality. ERCP--Was found to have a single severe segmental biliary stricture in the lower third of the main bile duct and middle third of the main bile duct. It was malignant appearing. Upper third of the duct was severely dilated. Sphincterotomy was performed. Biliary tree was swept and nothing was found. A plastic stent was placed into the common bile duct. Pathology: Pancreas, head, mass, biopsy: -Adenocarcinoma Initial OV: Normal appetite. Occasional nausea. Bowels moving. Stool color back to normal. No pain. Prior very active. Was dx borderline DM last year. Made an effort to lose weight--32 lbs. Was able to come off metformin. Current therapy: 1) FOLFIRINOX. Cycle 1 was administered FOLFOX. This was secondary to intermediate metabolizer for irinotecan and Presents for ongoing oncologic management. Interim history: Self limited cold induced neuropathy. No symptoms of stomatitis. No nausea--Reglan scheduled first few days. Pepto Bismol works better for diarrhea. Self-limited hip pain secondary to Neulasta administration. PAST MEDICAL HISTORY Diagnosis Date Acute gastritis without mention of hemorrhage Diverticulosis of colon (without mention of hemorrhage) Hernia of unspecified site of abdominal cavity without mention of obstruction or gangrene hiatal Iron deficiency anemia, unspecified 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) 08/12/2023 Nonalcoholic steatohepatitis (BOSS) Unspecified essential hypertension Essential hypertension PAST SURGICAL HISTORY Procedure Laterality Date CHOLECYSTECTOMY 10/2004 laparoscopic COLONOSCOPY FLX DX W/COLLJ SPEC WHEN PFRMD 12/16/07 Extensive sigmoid diverticulosis COLONOSCOPY FLX DX W/COLLJ SPEC WHEN PFRMD 05/25/10 Extensive sigmoid diverticulosis EGD TRANSORAL BIOPSY SINGLE/MULTIPLE 12/16/07 HH, Schatzki ring,antral gastritis EGD TRANSORAL BIOPSY SINGLE/MULTIPLE 05/25/10 HH LAPAROSCOPY SURG RPR INITIAL INGUINAL HERNIA 02-01-08 RIGHT inguinal hernia LAPAROSCOPY SURG RPR INITIAL INGUINAL HERNIA LEFT inguinal hernia PAST SURGICAL HISTORY OF 05/14/2011 Hernia repair REMV CATARACT EXTRACAP,INSERT LENS Right 11/02/2020 SN60WF +16.0 D ALLERGIES Allergen Reactions Phenergan [Prometha* Anaphylaxis vital signs dropped / patient coded Current Outpatient Medications Medication Sig VITAMIN E ACETATE ORAL Take 800 Units by mouth once daily. losartan (COZAAR) 100 mg tablet Take 1 tablet by mouth once daily. lidocaine-prilocaine (EMLA) 2.5-2.5 % cream Apply 60 minutes prior to accessing port. dexAMETHasone (DECADRON) 4 mg tablet Take 1 tablet by mouth two times a day with meals. for 3 days beginning the day after chemotherapy treatment. OLANZapine (ZYPREXA) 5 mg tablet Take 1 tablet by mouth daily at bedtime. beginning the evening of first day of chemotherapy each cycle and take for 4 days. ondansetron (ZOFRAN) 8 mg tablet Take 1 tablet by mouth every 8 hours as needed (For chemotherapy induced nausea and vomiting.). Hold for 72 hours after each chemotherapy treatment. metoclopramide HCl (REGLAN) 10 mg tablet Take 1 tablet by mouth three times a day. but not within 6 hours of taking olanzapine. VITAMIN E, BULK, MISC 400 Units two times a day. cholecalciferol, vitamin D3, (VITAMIN D3 ORAL) Take by mouth once daily. saw/vit E/sod jerson/lyc/beta/pyg (PROSTATE HEALTH ORAL) Take by mouth once daily. No current facility-administered medications for this visit. 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 Family History Problem Relation Age of Onset Stroke Mother age 72 Diabetes Father age 90 and prostate cancer Cataract Father Prostate Cancer Father Psychiatry Sister A & W, controlled with medication Hypertension Sister Diabetes Sister A & W Diabetes Brother A & W Diabetes Brother A & W Diabetes Brother A & W Diabetes Brother A & W None Brother A & W Colon Cancer Brother Father--Prostate cancer low grade in his 60s. Lived to 90. Brother--Colon cancer-- from metastatic disease age 77. Daughter--Breast cancer age 39. Now Two years out. First cousin--Pancreas cancer (mothers are sisters). Breast cancer on 's side. ROS: Constitutional: No fever. No drenching night sweats. Neuro: No recent GO, vertigo, dizziness or imbalance. No symptoms of sensory neuropathy. HEENT: No recent change in voice, vision or hearing. Resp: No cough, wheeze of hemoptysis. No shortness of breath at rest. CVS: No exertional chest pain, PND or orthopnea. No extremity swelling/edema. No symptoms of claudication. No painful or tender varicose veins. GI: See above. : No dysuria or gross hematuria. No symptoms of bladder outlet obstruction. Endo: No hot flashes. No polyuria or polydipsia. No heat or cold intolerance. Musculoskeletal: No bone, back, joint and muscular pain. Derm: No current rash. No history of jaundice. No diffuse pruritis. Heme: No unusual bleeding and unexplained bruising. Psych: Normal mood. PHYSICAL EXAM: Vitals: Blood pressure 153/97, pulse 95, temperature 36.8 C (98.2 F), temperature source Temporal, weight 86.2 kg (190 lb), SpO2 98%. Well-appearing and in no acute distress. EYES: Sclerae are mildly icteric bilaterally. ENT: Oral mucosa is unremarkable. LYMPHATIC: There is no palpable cervical or supraclavicular adenopathy. RESPIRATORY: Inspiratory breath sounds are of normal intensity in all velazquez. No rales, wheezes or rhonchi CARDIOVASCULAR: Rhythm is regular. ABDOMEN: The abdomen is nondistended. No tenderness or mass. Extremities: No swelling or edema. SKIN: No rash. No petechiae. NEUROLOGIC: liquified natural gas technician II-XII are grossly intact. No focal motor weakness. LABS: Latest Ref Rng 09/22/2023 WBC 3.70 - 11.00 k/uL 16.51 (H) (P) RBC 4.20 - 6.00 m/uL 3.81 (L) (P) Hemoglobin 13.0 - 17.0 g/dL 11.5 (L) (P) Hematocrit 39.0 - 51.0 % 33.2 (L) (P) MCV 80.0 - 100.0 fL 87.1 (P) MCH 26.0 - 34.0 pg 30.2 (P) MCHC 30.5 - 36.0 g/dL 34.6 (P) RDW-CV 11.5 - 15.0 % 15.0 (P) Platelet Count 150 - 400 k/uL 221 (P) MPV 9.0 - 12.7 fL 9.1 (P) ASSESSMENT/PLAN: (C25.0) 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) (primary encounter diagnosis) (K83.1) Biliary obstruction Assessment: -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 -Caris on tumor specimen pending. -Biliary obstruction on presentation. Plastic stent placed 08/06/2023. -Suspicious mesenteric nodule anterior to the lower right lobe of the liver. Prominent upper abdominal lymph nodes. -In-depth discussion with the patient and family today regarding approach to therapy. Not clear that he will be a candidate for resection and I recommended initiating systemic chemotherapy with FOLFIRINOX (family history of colon and pancreas cancer) while awaiting results of NGS and genetic testing. -UGT 1A1 intermediate metabolizer; DPYD normal metabolizer. -Recent biopsy of abdominal nodule nondiagnostic. -Genetic testing negative. 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 No actionable mutation. -Tolerating very well overall. -CBC reviewed. Counts allow continued therapy. He tolerated irinotecan very well overall despite intermediate metabolizer. -Chronic diarrhea since time of cholecystectomy. Will discuss pancreatic enzyme replacement therapy at next office visit. -BP better at home since stopping HCTZ and increasing losartan. Plan: -Okay for cycle #3. -Continue Losartan 100 mg daily. -Monitor CA 19-9. -CT scans following 4 cycles of chemotherapy pending tolerance. Portions of this documentation were copied and pasted from previous office visit notes in order to provide a cohesive continuity of the history. The note has been reviewed and edited and updated as necessary. Phong Aj DO documented in this encounter [facility] 09-15-2023 Miscellaneous Notes Cost facit documented in this encounter [facility] 09-15-2023 Miscellaneous Notes I spoke with the patient's today. The patient is active with Medicare A & B, LOC 80%, $240 deductible has $0.00 remaining, and $1632 OOP has $1632 remaining. An estimate shows the patient's financial responsibility is $190.27 for each treatment in 2023 until the O-O-P max is reached. The patient stated understanding. Reference # [id number]. The stated having no financial barriers at this time and that they have a support system with family and friends. I told her I would continue to look for any outside foundation help if it is available. documented in this encounter [facility] 09-09-2023 Note [facility] 09-09-2023 History of Present illness Narrative Pt was seen by Dr. Aj yesterday for an OV. Pt. Verbalizes no changes in assessment and agreeable with treatment. Dr. Aj notified of abnormal K+, new order to replace K+ per Dr. Aj. Verbally educated pt and spouse and verbalized understanding. documented in this encounter [facility] 09-08-2023 Note [facility] 09-08-2023 History of Present illness Narrative Oncologic problem(s): 1) HPI: The patient is a 73-year-old male with past medical history significant for hypertension, renal lithiasis, BOSS and GI bleed (admitted 04/16/2021 [facility] for hematemesis; previous laparotomy with wedge resection of gastric fundus and Sam fundoplication 2009 for GI bleed) and recent diagnosis of pancreas cancer. Gastric ulcer secondary to NSAID use in 2010. Recently developed jaundice. CT A/P [facility] 07/30/2023: FINDINGS: The visualized lung bases are unremarkable. The visualized portions of the heart are within normal limits. Moderate degree of the intrahepatic biliary ductal dilatation. There is dilatation of the common bile duct. It measures 1.4 cm in transverse dimension. The distal portion of the common bile duct is not well visualized. There are surgical clips in the gallbladder fossa consistent with a prior cholecystectomy. Normal spleen. I suspect a 3.5 cm x 2.6 cm mass in the head of the pancreas. There is diffuse atrophy of the pancreas. There is diffuse irregular pancreatic ductal dilatation. Correlation with ERCP is recommended to rule out obstruction of the distal portion of the common bile duct. Soft tissue fullness is seen in the region of the celiac axis. Adenopathy should be ruled out. Normal bilateral adrenal glands. Normal right kidney. Nonobstructive 7.3 mm calculus in the lower pole calyx of the left kidney. There is a moderate-sized hiatal hernia. Prior subtotal gastrectomy. Normal small intestine. There are multiple colonic diverticula consistent with diverticulosis. The appendix is visualized and appears normal. Normal abdominal aorta. Normal inferior vena cava. Normal retroperitoneum. Normal urinary bladder. The prostate measures 3.7 cm x 4.5 cm. Central calcifications are seen. Results of prior bilateral inguinal hernia repair and lower anterior abdominal wall repair with mesh. There are diffuse degenerative changes of the visualized lumbar spine. Minimal anterior listhesis of L5 and S1 with a spondylolysis of the pars interarticularis of the L5 vertebrae. IMPRESSION: Dilated intrahepatic biliary duct as well as the pancreatic duct and common bile duct. Findings suggestive of a mass in the head of the pancreas. Correlation with ERCP is recommended. The patient is status post cholecystectomy. Nonobstructive calculus in the lower pole calyx of left kidney. Status post partial gastric resection. CT pancreas 08/05/2023: IMPRESSION: 3.2 cm pancreatic head mass with vascular involvement as described. Severe biliary dilation, slightly increased from 07/30/2023 CT. 1.2 cm perihepatic node/nodule, possibly metastatic. Few additional prominent periportal nodes; attention on follow-up. MORPHOLOGIC EVALUATION: a.Location: Head /Uncinate b. Size: 2.8 x 3.2 x 3.0 cm (CC x AP x T) (2:53, 4:44) c.Density:Hypodense d. Pancreatic duct abrupt cut off :Present e. Pancreatic duct upstream dilatation: Present, measuring up to 1.6 cm (2:48). f. Biliary tree abrupt cut off:Present e. Biliary tree upstream dilatation: Severe intrahepatic and extrahepatic biliary duct dilation, slightly increased from prior. ARTERIAL EVALUATION SMA Degree of solid soft tissue contact: None Degree of increased hazy attenuation/stranding contact: < 180 degrees (4:50) Focal vessel narrowing or contour irregularity: Absent Extension to first SMA branch: Probably present CELIAC AXIS Degree of solid soft tissue contact: None Degree of increased hazy attenuation/stranding contact: > 180 degrees Focal vessel narrowing or contour irregularity: Present, focal narrowing of the distal celiac trunk (3:155) ALEX Degree of solid soft tissue contact: None Degree of increased hazy attenuation/stranding contact: > 180 degrees Focal vessel narrowing or contour irregularity: Absent Extension to celiac axis: Present Extension to bifurcation of right/left hepatic artery: Absent ARTERIAL VARIANT ANATOMY: Absent VENOUS EVALUATION MPV: Present Degree of solid soft tissue contact: <180 degrees (7:42) Degree of increased hazy attenuation/stranding contact: < 180 degrees Focal vessel narrowing or contour irregularity: Absent SMV: Absent Degree of solid soft tissue contact: None Degree of increased hazy attenuation/stranding contact: None Focal vessel narrowing or contour irregularity: Absent Extension to first draining vein: Absent Venous thrombus: No venous thrombosis. Venous collaterals: None CONTIGUOUS ORGAN INVASION: None SUSPICIOUS LYMPH NODES: Few prominent upper abdominal nodes, for example: * 0.8 cm periportal node (5:44) * 1 cm portal caval node (5: 49) LIVER LESIONS: Absent. PERITONEUM: Ascites absent. 1.2 cm node/nodule anterior to the right hepatic lobe (5:53). OTHER ABDOMINAL FINDINGS: Spleen: No mass. No splenomegaly. Calcified granulomas. Adrenals: No mass. Kidneys: 8 mm left lower pole calculus. Subcentimeter lesions too small to characterize but likely benign. No solid mass or hydronephrosis. GI tract: No dilation or wall thickening. Moderate hiatal hernia. Surgical clips at the GE junction. Normal appendix. Colonic diverticulosis. Pelvis: No mass, ascites or fluid collection. Bones/Soft Tissues: Degenerative changes. Mesh anchors along the lower anterior abdominal wall. Lower thorax: A chest CT performed will be reported separately. Telesales Team Leader (topogram) images: No additional findings. Underwent EGD/EUD along with ERCP on 08/06/2023. On EUS was noted to have an irregular mass in the pancreatic head. It was hypoechoic. Measured 3 cm in maximal cross-sectional diameter. Borders were poorly defined. Fine-needle biopsy was performed. 2 passes with a 22-gauge shark core biopsy needle using transduodenal approach was utilized. The celiac plexus and celiac ganglia were visualized and showed no signs of significant endosonographic abnormality. ERCP--Was found to have a single severe segmental biliary stricture in the lower third of the main bile duct and middle third of the main bile duct. It was malignant appearing. Upper third of the duct was severely dilated. Sphincterotomy was performed. Biliary tree was swept and nothing was found. A plastic stent was placed into the common bile duct. Pathology: Pancreas, head, mass, biopsy: -Adenocarcinoma Initial OV: Normal appetite. Occasional nausea. Bowels moving. Stool color back to normal. No pain. Prior very active. Was dx borderline DM last year. Made an effort to lose weight--32 lbs. Was able to come off metformin. Current therapy: 1) FOLFIRINOX. Cycle 1 was administered FOLFOX. This was secondary to intermediate metabolizer for irinotecan and Presents for ongoing oncologic management. Interim history: Did very well with first cycle. Self limited cold induced neuropathy. No nausea. Fatigue day 5. About a day or so with diarrhea. Worked normally. PAST MEDICAL HISTORY Diagnosis Date Acute gastritis without mention of hemorrhage Diverticulosis of colon (without mention of hemorrhage) Hernia of unspecified site of abdominal cavity without mention of obstruction or gangrene hiatal Iron deficiency anemia, unspecified 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) 08/12/2023 Nonalcoholic steatohepatitis (BOSS) Unspecified essential hypertension Essential hypertension PAST SURGICAL HISTORY Procedure Laterality Date CHOLECYSTECTOMY 10/2004 laparoscopic COLONOSCOPY FLX DX W/COLLJ SPEC WHEN PFRMD 12/16/07 Extensive sigmoid diverticulosis COLONOSCOPY FLX DX W/COLLJ SPEC WHEN PFRMD 05/25/10 Extensive sigmoid diverticulosis EGD TRANSORAL BIOPSY SINGLE/MULTIPLE 12/16/07 HH, Schatzki ring,antral gastritis EGD TRANSORAL BIOPSY SINGLE/MULTIPLE 05/25/10 HH LAPAROSCOPY SURG RPR INITIAL INGUINAL HERNIA 02-01-08 RIGHT inguinal hernia LAPAROSCOPY SURG RPR INITIAL INGUINAL HERNIA LEFT inguinal hernia PAST SURGICAL HISTORY OF 05/14/2011 Hernia repair REMV CATARACT EXTRACAP,INSERT LENS Right 11/02/2020 SN60WF +16.0 D ALLERGIES Allergen Reactions Phenergan [Prometha* Anaphylaxis vital signs dropped / patient coded Current Outpatient Medications Medication Sig VITAMIN E ACETATE ORAL Take 800 Units by mouth once daily. lidocaine-prilocaine (EMLA) 2.5-2.5 % cream Apply 60 minutes prior to accessing port. dexAMETHasone (DECADRON) 4 mg tablet Take 1 tablet by mouth two times a day with meals. for 3 days beginning the day after chemotherapy treatment. OLANZapine (ZYPREXA) 5 mg tablet Take 1 tablet by mouth daily at bedtime. beginning the evening of first day of chemotherapy each cycle and take for 4 days. ondansetron (ZOFRAN) 8 mg tablet Take 1 tablet by mouth every 8 hours as needed (For chemotherapy induced nausea and vomiting.). Hold for 72 hours after each chemotherapy treatment. losartan-hydroCHLOROthiazide (HYZAAR) 50-12.5 mg per tablet Take 1 tablet by mouth once daily. cholecalciferol, vitamin D3, (VITAMIN D3 ORAL) Take by mouth once daily. metoclopramide HCl (REGLAN) 10 mg tablet Take 1 tablet by mouth three times a day. but not within 6 hours of taking olanzapine. (Patient not taking: Reported on 09/08/2023) VITAMIN E, BULK, MISC 400 Units two times a day. saw/vit E/sod jerson/lyc/beta/pyg (PROSTATE HEALTH ORAL) Take by mouth once daily. No current facility-administered medications for this visit. 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 Family History Problem Relation Age of Onset Stroke Mother age 72 Diabetes Father age 90 and prostate cancer Cataract Father Prostate Cancer Father Psychiatry Sister A & W, controlled with medication Hypertension Sister Diabetes Sister A & W Diabetes Brother A & W Diabetes Brother A & W Diabetes Brother A & W Diabetes Brother A & W None Brother A & W Colon Cancer Brother Father--Prostate cancer low grade in his 60s. Lived to 90. Brother--Colon cancer-- from metastatic disease age 77. Daughter--Breast cancer age 39. Now Two years out. First cousin--Pancreas cancer (mothers are sisters). Breast cancer on 's side. ROS: Constitutional: No fever. No drenching night sweats. Neuro: No recent GO, vertigo, dizziness or imbalance. No symptoms of sensory neuropathy. HEENT: No recent change in voice, vision or hearing. Resp: No cough, wheeze of hemoptysis. No shortness of breath at rest. CVS: No exertional chest pain, PND or orthopnea. No extremity swelling/edema. No symptoms of claudication. No painful or tender varicose veins. GI: See above. : No dysuria or gross hematuria. No symptoms of bladder outlet obstruction. Endo: No hot flashes. No polyuria or polydipsia. No heat or cold intolerance. Musculoskeletal: No bone, back, joint and muscular pain. Derm: No current rash. No history of jaundice. No diffuse pruritis. Heme: No unusual bleeding and unexplained bruising. Psych: Normal mood. PHYSICAL EXAM: Vitals: Blood pressure 132/88, pulse 102, temperature 36.8 C (98.3 F), weight 87.1 kg (192 lb), SpO2 99%. Well-appearing and in no acute distress. EYES: Sclerae are mildly icteric bilaterally. ENT: Oral mucosa is unremarkable. LYMPHATIC: There is no palpable cervical, supraclavicular adenopathy. RESPIRATORY: Inspiratory breath sounds are of normal intensity in all velazquez. No rales, wheezes or rhonchi. Expiratory phase is normal. CARDIOVASCULAR: Rhythm is regular. ABDOMEN: The abdomen is nondistended. No splenomegaly or hepatomegaly. No tenderness or mass. Extremities: No swelling or edema. SKIN: No rash. No petechiae. NEUROLOGIC: liquified natural gas technician II-XII are grossly intact. No focal motor weakness. LABS: Latest Ref Rng 09/08/2023 WBC 3.70 - 11.00 k/uL 8.29 RBC 4.20 - 6.00 m/uL 3.87 (L) Hemoglobin 13.0 - 17.0 g/dL 11.5 (L) Hematocrit 39.0 - 51.0 % 33.7 (L) MCV 80.0 - 100.0 fL 87.1 MCH 26.0 - 34.0 pg 29.7 MCHC 30.5 - 36.0 g/dL 34.1 RDW-CV 11.5 - 15.0 % 15.0 Platelet Count 150 - 400 k/uL 255 MPV 9.0 - 12.7 fL 8.6 (L) Neut% % 68.7 Abs Neut (ANC) 1.45 - 7.50 k/uL 5.69 Lymph% % 17.7 Abs Lymph 1.00 - 4.00 k/uL 1.47 [place]% % 9.9 Abs [place] <0.87 k/uL 0.82 Eosin% % 2.5 Abs Eosin <0.46 k/uL 0.21 Baso% % 0.7 Abs Baso <0.11 k/uL 0.06 Immature Gran % % 0.5 IMMATURE GRANS (ABS) <0.10 k/uL 0.04 NRBC /100 WBC 0.0 Absolute nRBC <0.01 k/uL <0.01 DTYPE Auto ASSESSMENT/PLAN: (C25.0) 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) (primary encounter diagnosis) (K83.1) Biliary obstruction Assessment: -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 -Caris on tumor specimen pending. -Biliary obstruction on presentation. Plastic stent placed 08/06/2023. -Suspicious mesenteric nodule anterior to the lower right lobe of the liver. Prominent upper abdominal lymph nodes. -In-depth discussion with the patient and family today regarding approach to therapy. Not clear that he will be a candidate for resection and I recommended initiating systemic chemotherapy with FOLFIRINOX (family history of colon and pancreas cancer) while awaiting results of NGS and genetic testing. -UGT 1 A1 intermediate metabolizer; DPYD normal metabolizer. -Recent biopsy of abdominal nodule nondiagnostic. -Genetic testing negative. 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 No actionable mutation. -Tolerating very well overall. -BP running high. Plan: -Stop HCTZ. -Increase losartan to 100 mg daily. -Add irinotecan. -Monitor CA 19-9. -CT scans following 4 cycles of chemotherapy pending tolerance. Portions of this documentation were copied and pasted from previous office visit notes in order to provide a cohesive continuity of the history. The note has been reviewed and edited and updated as necessary. I spent a total of 25 minutes on the date of the service which included preparing to see the patient, [id number] patient care, completing clinical documentation, obtaining and/or reviewing separately obtained history, performing a medically appropriate examination, counseling and educating the patient/family/caregiver, ordering medications, tests, or procedures, communicating with other HCPs (not separately reported), and communicating results to the patient/family/caregiver. Phong Aj DO documented in this encounter [facility] 08-28-2023 Miscellaneous Notes Spoke to Dr. Aj and reminded him that patient also has zofran on hand. Dr. Aj verbalized to stay on reglan for 72 hours after treatment. Patient will switch to zofran on Friday and continue until Friday then take as needed. Patient informed he can continue vitamin e. Gretchen Del Castillo RN He can continue or resume taking vitamin EE. In regards to Reglan, I advise he take it up to and including next Friday 09/01. Phong Aj DO Dr. Madai Gaston is asking if it is okay to resume taking his vitamin E. He is also asking if he needs to be on Reglan TID for a specific time frame or indefinitely? documented in this encounter [facility] 08-27-2023 Miscellaneous Notes CYCLE 1/DAY 1 POST TREATMENT CALL Today's date: August 27, 2023 Treatment Regimen: Folfox C1D1 Date: 08/26/23 Called patient to follow-up on symptom management. Spoke with patient and SYMPTOM ASSESSMENT Neuro: Dizziness a little lightheaded with positional changes. Headaches: denies Cold sensitivities: tingling CV/Resp: Cough: dry cough nothing unusual GI/: Mouth or throat pain denies, Appetite: no changes in appetite, appetite good, Nausea denies, and Diarrhea: patient stated he has 3-4 BM's per daily normally. Stool is not as loose. Drinking water and Gatorade. Urine is clear. Integument: None Activity: Patient reported no changes in energy level, energy level good Pain: No=0 (pain 0 on a scale of 0-10). Fever: No Chills: No Reviewed medications with and patient. Any new referrals needed? No Reinforced CURRENT treatment education based on current and anticipated symptoms. Discussed port/line care and patient verbalizes understanding: Yes Patient instructed to contact office or after hours Hematology/Oncology fellow for: temperature ? 100.4; questions or concerns. Patient verbalized understanding of when to seek medical attention and after hours number protocol. Gretchen Del Castillo RN Patient's spouse Yary called in asking to have a call back from Gretchen to discuss the oral medication Kristin is supposed to be taking at home. She stated she has some questions about them. 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 Pt has resolved malabsorption. Nutrition Intervention: -Consider meal prepping prior to treatment. - aim for 5-6 small/frequent meals - incorporate lean sources of protein/plant based proteins at meals - Stay well hydrated - sip on fluids throughout the day - start supplementation: Ensure Plus or Complete; Boost Plus 2 times per day -Strategies to manage treatment side effects: as needed Nutrition Monitoring & Evaluation: PO intake Supplement tolerance Wt status Biochemical Markers Skin integrity Plan of care Patient Condition: Pt presents for nutrition counseling for pancreatic cancer. Pt is currently being treated with oxaliplatin. Pt denies food allergies/intolerances. Per HPI: The patient is a 73-year-old male with past medical history significant for hypertension, renal lithiasis, BOSS and GI bleed (admitted 04/16/2021 [facility] for hematemesis; previous laparotomy with wedge resection of gastric fundus and Sam fundoplication 2009 for GI bleed) and recent diagnosis of pancreas cancer.Gastric ulcer secondary to NSAID use in 2009. Recently developed jaundice. I have confirmed and edited as necessary the hpi obtained by Dr. Aj on 08/12/23 and all reflect current status. Nutrition Assessment: Patient is stable from a nutritional standpoint. Patient's symptoms are: Minimal problems Has had chronic diarrhea (possible IBD) Starting first chemo today Diet History (24hr recall): Eats three meals per day plus snacks Drinks water, occasional pop Supplements: Vitamin D, Vitamin E (Dr. Johana BOSS), Prostate supplement Topics addressed: expected symptoms and changing eating habits in relation to concerns, healthy eating when feeling well, protein based foods, try using Ensure or Fairlife milk. Reviewed EPI and how to identify (no current concerns). Using a food diary as needed for symptoms. Follow up as needed. Pt verbalizes understanding. Educational materials provided: none this visit Readiness to Learn: Cognitive ability: Alert and oriented Motivation to learn: Interested Family support: High - Very involved in pt care Instruction provided to: Patient, Spouse, and Daughter Patient learns best by: Multiple Methods Factors affecting learning: None Physical limitations affecting learning: None Anthropometrics: Height: Last 1 Encounter Ht Readings: Date: Ht: 08/12/2023 175.3 cm (5' 9 ) Current weight: Last 1 Encounter Wt Readings: Date: Wt: 08/12/2023 88 kg (194 lb) 05/21/22 07:49 Height 5 ft 11 in Weight: 230 lb Estimated body mass index is 28.65 kg/m as calculated from the following: Height as of 08/21/23: 175.3 cm (5' 9 ). Weight as of 08/21/23: 88 kg (194 lb). Resting Metabolic Rate: 1630 Weight Change: 34lb weight loss in 4 months; 14% in four months Dosing Weight: 88 kg Estimated kilocalorie needs: 2922-6329 kilocalories determined by 25-30 kcal/kg Estimated protein needs: 88-105 grams determined by 1.0-1.2 g/kg Dosing weight Estimated fluid needs: 2200 milliliters based on 1 mL per kcal Nutrition Focused Physical Exam: Unable to perform exam due to concerns for compromising current medical condition, will re-attempt during reassessment. Potential Signs of Inflammation: chronic condition Allergies: Phenergan [Promethazine Hcl] Medications: Current Outpatient Medications Medication Sig Dispense Refill lidocaine-prilocaine (EMLA) 2.5-2.5 % cream Apply 60 minutes prior to accessing port. 15 g 2 dexAMETHasone (DECADRON) 4 mg tablet Take 1 tablet by mouth two times a day with meals. for 3 days beginning the day after chemotherapy treatment. 24 tablet 3 OLANZapine (ZYPREXA) 5 mg tablet Take 1 tablet by mouth daily at bedtime. beginning the evening of first day of chemotherapy each cycle and take for 4 days. 16 tablet 0 ondansetron (ZOFRAN) 8 mg tablet Take 1 tablet by mouth every 8 hours as needed (For chemotherapy induced nausea and vomiting.). Hold for 72 hours after each chemotherapy treatment. 30 tablet 2 metoclopramide HCl (REGLAN) 10 mg tablet Take 1 tablet by mouth three times a day. but not within 6 hours of taking olanzapine. 30 tablet 0 losartan-hydroCHLOROthiazide (HYZAAR) 50-12.5 mg per tablet Take by mouth. VITAMIN E, BULK, MISC 400 Units two times a day. cholecalciferol, vitamin D3, (VITAMIN D3 ORAL) Take by mouth once daily. saw/vit E/sod jerson/lyc/beta/pyg (PROSTATE HEALTH ORAL) Take by mouth once daily. No current facility-administered medications for this visit. Facility-Administered Medications Ordered in Other Visits Medication Dose Route Frequency Provider Last Rate Last Admin fluorouracil (ADRUCIL) 5,000 mg in NaCl 0.9% 102 mL in empty bag 2,400 mg/m2 (Treatment Plan Recorded) INTRAVENOUS ONCE Phong Aj DO 2.2 mL/hr at 08/26/23 1400 5,000 mg at 08/26/23 1400 NaCl 0.9% iv infusion 500-999 mL/hr INTRAVENOUS PRN Phong Aj DO diphenhydrAMINE 50 mg injection (BENADRYL) 50 mg INTRAVENOUS PRN Phong Aj DO hydrocortisone sodium succinate (PF) 100 mg injection (Solu-CORTEF) 100 mg INTRAVENOUS PRN Phong Aj DO EPINEPHrine HCl (PF) 1 mg/mL (1 mL) 0.3 mg injection 0.3 mg INTRAMUSCULAR PRN Phong Aj DO Need for Follow up: as needed Referred/Supervised by: Dr. Aj MNT Billing Type: Initial Assess/15 min 2 units Billed Time: 30 minutes Signed by: Gin Lambert RD, LD documented in this encounter [facility] 08-26-2023 Miscellaneous Notes I called patient to inform him that his biopsy was negative and he should continue with chemo. He has verbalized understanding. Pt. Advised he has not yet received biopsy results from a week ago yesterday. He is starting chemo in [place] today and would like to know the results of biopsy (he was told it would take 3-4 days). He may be reached at [phone] documented in this encounter [facility] 08-26-2023 Miscellaneous Notes Patient informed of Dr. Aj's response, stated understanding. Gretchen Del Castillo RN Today's CMP showed bilirubin just over 2 mg/dL. Additionally he is an intermediate metabolizer for irinotecan and because of prior surgery cannot vomit. Therefore cycle 1 will be FOLFOX only. Neulasta not indicated. [facility] orders updated. Pending tolerance, will add irinotecan and Neulasta with cycle 2. Phong Aj DO documented in this encounter [facility] 08-25-2023 Note [facility] 08-25-2023 History of Present illness Narrative [facility] Consultation Note Genetic Counselor: Sergei Nguyen MS, [facility] Patient: Kristin Lara Patient Name and confirmed at initiation of visit. Appointment occurred with audio communication through a phone call. I have communicated my name and active licensure. The patient's identity and physical location were verified at the time of this visit. Either the patient or their legal architectural representative has been informed of the risks and benefits of -- and alternatives to -- treatment through a remote evaluation and consents to proceed with the evaluation remotely. HIGH LEVEL SUMMARY: The patient's personal history is potentially suggestive of a hereditary cancer syndrome. The patient provided informed consent for Multi-Cancer panel through [facility]. Results are expected in 2-3 weeks. IDENTIFICATION AND CHIEF COMPLAINT: Dr. Tobi Nascimento requested a consultation for genetic counseling and risk assessment for Kristin Lara, a 73 year old male, for discussion of his recent diagnosis of pancreatic cancer. He presents to clinic today to discuss the possibility of a genetic predisposition to cancer, and to further clarify his risks, as well as his family members' risks for cancer. HISTORY OF PRESENT ILLNESS: In August of 2023, at the age of 73, Kristin Lara was diagnosed with adenocarcinoma of the pancreas. This will be treated with FOLFIRINOX. PAST MEDICAL HISTORY Diagnosis Date Acute gastritis without mention of hemorrhage Diverticulosis of colon (without mention of hemorrhage) Hernia of unspecified site of abdominal cavity without mention of obstruction or gangrene hiatal Iron deficiency anemia, unspecified 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) 08/12/2023 Nonalcoholic steatohepatitis (BOSS) Unspecified essential hypertension Essential hypertension PAST SURGICAL HISTORY Procedure Laterality Date CHOLECYSTECTOMY 10/2004 laparoscopic COLONOSCOPY FLX DX W/COLLJ SPEC WHEN PFRMD 12/16/07 Extensive sigmoid diverticulosis COLONOSCOPY FLX DX W/COLLJ SPEC WHEN PFRMD 05/25/10 Extensive sigmoid diverticulosis EGD TRANSORAL BIOPSY SINGLE/MULTIPLE 12/16/07 HH, Schatzki ring,antral gastritis EGD TRANSORAL BIOPSY SINGLE/MULTIPLE 05/25/10 HH LAPAROSCOPY SURG RPR INITIAL INGUINAL HERNIA 02-01-08 RIGHT inguinal hernia LAPAROSCOPY SURG RPR INITIAL INGUINAL HERNIA LEFT inguinal hernia PAST SURGICAL HISTORY OF 05/14/2011 Hernia repair REMV CATARACT EXTRACAP,INSERT LENS Right 11/02/2020 [id number] +16.0 D SOCIAL HISTORY: Social History Tobacco Use Smoking status: Never Smokeless tobacco: Never Vaping Use Vaping Use: Never used Substance Use Topics Alcohol use: No Drug use: No FAMILY HISTORY: We obtained a detailed, 4-generation family history. Significant diagnoses are listed below: FAMILY HISTORY Problem Relation Age of Onset Stroke Mother age 72 Diabetes Father age 90 and prostate cancer Cataract Father Prostate Cancer Father Psychiatry Sister A & W, controlled with medication Hypertension Sister Diabetes Sister A & W Diabetes Brother A & W Diabetes Brother A & W Diabetes Brother A & W Diabetes Brother A & W None Brother A & W Colon Cancer Brother GENETIC COUNSELING RISK ASSESSMENT, DISCUSSION, AND SUGGESTED FOLLOW UP: We reviewed the natural history and genetic etiology of sporadic, familial and hereditary cancer syndromes. The patient's personal history is potentially suggestive of a hereditary cancer syndrome. The patient meets NCCN HBOC testing criteria based on his personal history of pancreatic cancer. We discussed that identification of a hereditary cancer syndrome may help his care providers tailor his medical management. If a mutation is detected, the patient will be referred back to the referring provider and to any additional appropriate care providers to discuss the relevant options. Inheritance of hereditary cancer syndromes was discussed with the patient. If a mutation is not found in the patient, this will decrease the likelihood of a hereditary cancer syndrome as the explanation for the patient's personal history of pancreatic cancer. However, it cannot completely rule out this possibility. Cancer surveillance options would be discussed for the patient according to the appropriate standard National Comprehensive Cancer Network and [place] [employer] guidelines, with consideration of their personal and family history risk factors. In this case, the patient will be referred back to their care providers for discussions of management. Based on this assessment of the patient's family and personal history, genetic testing is recommended. The patient was offered Multi-Cancer panel through [facility]. After considering the risks, benefits, and limitations, the patient chose to pursue and provided informed consent for the following testing: Multi-Cancer panel through [facility]. The Multi-Cancer Panel includes AIP, ALK, APC, MICHELLE, AXIN2, BAP1, BARD1, BLM, BMPR1A, BRCA1, BRCA2, BRIP1, CDC73, CDH1, CDK4, CDKN1B, CDKN2A, CHEK2, CTNNA1, DICER1, EGFR, EPCAM, FH, FLCN, GREM1, HOXB13, KIT, LZTR1, MAX, MBD4, MEN1, MET, MITF, MLH1, MSH2, MSH3, MSH6, MUTYH, NF1, NF2, NTHL1, PALB2, PDGFRA, PMS2, POLD1, POLE, POT1, XORTO4I, PTCH1, PTEN, RAD51C, RAD51D, RB1, RET, SDHA, SDHAF2, SDHB, SDHC, SDHD, SMAD4, SMARCA4, SMARCB1, SMARCE1, STK11, SUFU, QLHM239, TP53, TSC1, TSC2, and VHL The Multi-Cancer panel looks at genes associated with cancers of the breast, gynecologic tract (ovarian, uterine/endometrial), gastrointestinal system (colorectal, gastric, pancreatic), endocrine glands (thyroid, parathyroid, pituitary, adrenal glands), genitourinary tract (renal/urinary tract, prostate), skin (melanoma, basal cell carcinoma), and brain/nervous system. We discussed that an NGS panel can rarely result in an unexpected finding which may or may not be related to the presenting phenotype. We discussed that [email or web address] may contact the patient by text or email regarding billing. The patient should watch for this communication and respond promptly. The patient should contact [email or web address] directly with any billing questions (ph. [phone]). Per the patient's request, I will contact him by telephone to discuss these results. A follow up genetic counseling visit will be scheduled if requested. The patient was seen for a total of 25 minutes, greater than 50% of which was spent [id number] counseling. This plan is being carried out under the oversight of Dr. Emely Camara. This note will also be sent to the referring provider via the electronic medical record. Sergei Nguyen MS, [facility] Licensed, Certified Genetic Counselor [facility] CC: Dr. Tobi Blevins documented in this encounter [facility] 08-25-2023 Miscellaneous Notes [facility] Care Coordination FOLLOW-UP NOTE Patient identified by name and date of . YES Spoke to patient Summary: (Reason for follow-up) Review medication calendar Concerns: (New Barriers to care) Reviewed medication calendar with patient. Patient was given a calendar for first 3 cycles. Patient to call with any questions/concerns. Patient verbalized when to seek Medical Attention and an understanding of after- hours phone number and process: Yes Care Coordination Plan: No further follow up needed at this time. Will call patient this week for a C1 call. Gretchen Del Castillo RN August 25, 2023 Patient returned call. CC went to Called patient. Patient was in the car and unable to review medications at this time. This nurse will contact patient Friday morning. Gretchen Del Castillo RN Calendar created and emailed to patient. Gretchen Del Castillo RN Patient returned this nurses phone call. Reviewed medications. Patient would like this nurse to make him a calendar and email. Once patient picks up all of the medications, he will give this nurse a call this week and we will review. Gretchen Del Castillo RN Called patient to review medications, there was no answer, left a VM requesting a call back from patient. Gretchen Del Castillo RN I added Reglan so he has something to take as needed before he is able to take Zofran. I wrote the sig on the prescription not to take within 6 hours of taking olanzapine. Phong Aj DO PT SCHEDULED W GIN LAMBERT. Sara Crouch Dr. Aj- per last OV notes, you stated patient should be given an aggressive anti-emetic regimen. Decadron was sent in already. Olanzapine pended. Did not pend compazine d/t promethazine allergy. Zofran pended with instructions to hold the first 72 hours. Please advise if you would like other medications ordered? Thank you. Gretchen Del Castillo RN 1st attempt Yadira Boles PSS- please contact patient to scheduled nutrition consult appointment. Jasmina Morales LPN The following approved medication requests have been transmitted electronically. Requested Prescriptions Signed Prescriptions Disp Refills lidocaine-prilocaine (EMLA) 2.5-2.5 % cream 15 g 2 Sig: Apply 60 minutes prior to accessing port. Authorizing Provider: PHONG AJ dexAMETHasone (DECADRON) 4 mg tablet 24 tablet 3 Sig: Take 1 tablet by mouth two times a day with meals. for 3 days beginning the day after chemotherapy treatment. Authorizing Provider: PHONG AJ DO Patient does not have antiemetics on hand. Patient stated he coded after receiving phenergan which is listed as an allergy. Patient had Zofran on his med list from 2011 and stated he believes he tolerated the medication. Patient is currently holding all supplements at this time. Orders pended for: Dex Emla cream Nutrition consult. Patient will be receiving aloxi here as pre-med. Gretchen Del Castillo RN documented in this encounter [facility] 08-21-2023 Note HNO ID: [id number] Author: TINO FRIAS RN Service: ? Author Type: Registered Nurse Type: Nursing Progress Note Filed: 08/21/2023 10:12 Note Text: Steri strip to right neck remains clean dry and intact. [facility] 08-21-2023 Note HNO ID: [id number] Author: TINO FRIAS RN Service: ? Author Type: Registered Nurse Type: Nursing Progress Note Filed: 08/21/2023 09:50 Note Text: Patient lying with eyes closed. Responds easily to verbal commands. No voiced complaints. [facility] 08-19-2023 Miscellaneous Notes Called patient and scheduled with him to come in on the for lab work. Sara Crouch PSS please reach out to pt.to schedule 08/24 lab/port CBC/CMP/Mag/CA19-[address] Aj note he would like to have labs the day prior to treatment. He will not need to repeat the day of tx. Pt. Read his my chart message so should be aware of the request. Nichole Randall LPN documented in this encounter [facility] 08-18-2023 Surgical operation note BRIEF OPERATIVE / PROCEDURE NOTE LOG ID: [id number] SURGERY/PROCEDURE DATE: 08/18/2023 INCISION/PROCEDURE START TIME: 10:37 AM INCISION CLOSE/PROCEDURE END TIME: SURGEON(S)/PROCEDURALIST(S) AND FILLER SIFTER HELPER(S): Surgeon(s) and Role: * Bear Bahena MD - Primary * Allan Kerr MD No Additional Staff SURGERY/PROCEDURE(S): CT guided perihepatic soft tissue nodule biopsy under moderate sedation ANESTHESIA: Procedural Sedation FINDINGS: 4 passes with a CORE biopsy needle ESTIMATED BLOOD LOSS: Trace SPECIMENS: 2 CORE specimens COMPLICATIONS: None PRE-OP/PRE-PROCEDURE DIAGNOSIS: Soft tissue nodule in the setting of pancreatic cancer POST-OP/POST-PROCEDURE DIAGNOSIS: Same as Preop SIGNATURE: Allan Kerr MD PATIENT NAME: Kristin Lara DATE: August 18, 2023 TIME: 10:53 AM documented in this encounter [facility] 08-18-2023 Note [facility] 08-18-2023 History of Present illness Narrative Radiology Service Progress Note PATIENT NAME: Kristin Lara DATE OF SERVICE: August 18, 2023 TIME: 10:36 AM PATIENT IDENTITY VERIFICATION COMPLETED USING TWO (2) IDENTIFIERS: Name and Date of confirmed by patient verbally and Name and Date of confirmed by identification band. FALL SCREENING: Has the patient had 2 falls in the last year or 1 fall with injury or currently using an Ambulatory Assistive Device (Walker, Cane, Wheelchair, Crutches, etc.)? Yes, Patient High Risk for Falls What interventions were put in place to prevent falls during this visit? Yellow Falls Risk Wristband Applied PATIENT GENDER DATA: Male PATIENT RELEVANT IMPLANT DATA REVIEWED: Yes PATIENT PRESENTS WITH AN IMPLANTABLE OR ATTACHED SELLING SPECIALIST: No RADIOLOGY DEPARTMENT: Biopsy PERIPHERAL IV DATA: Not applicable SIGNED BY: LULU Cobb RT(R) August 18, 2023 10:36 AM documented in this encounter [facility] 08-18-2023 Miscellaneous Notes AMBULATORY PATIENT EDUCATION TOPIC: Survival Skills: Procedure, Abdominal mass READINESS TO LEARN COGNITIVE ABILITY: Alert and oriented MOTIVATION TO LEARN: Interested FAMILY SUPPORT: High - Very involved in pt care INSTRUCTION PROVIDED TO: Patient PATIENT LEARNS BEST BY: Individual Instruction FACTORS AFFECTING LEARNING: Unable to assess PHYSICAL LIMITATIONS AFFECTING LEARNING: Fatigue LEARNING RESPONSE DIAGNOSIS: abdominal mass METHOD OF INSTRUCTION: Individual instruction PATIENT / FAMILY RESPONSE: Information received as demonstrated by interest and questions FOLLOW-UP PLAN: Patient instructed to call with any further issues SUPPLEMENTAL MATERIAL: None REFERRAL (RECOMMENDATION): None Electronically Signed By: Daysi Gardner RN In Department: HOSP MAIN [id number] documented in this encounter [facility] 08-18-2023 History and physical note UPDATED PROCEDURAL SEDATION HISTORY AND PHYSICAL EXAMINATION SERVICE DATE: 08/18/2023 SERVICE TIME: 7:59 AM PHYSICAL EXAM MUST BE COMPLETED ON ADMISSION PROCEDURE SCHEDULED: Procedure(s) with comments: BIOPSY ABDOMINAL/RETROPERITONEAL MASS PERCUTANEOUS NEEDLE (N/A) - ABDOMINAL MASS BIOPSY RADIOLOGY ORDER PLACED: Radiology (1440h ago, onward) Start Ordered 08/05/23 0000 IMAGING GUIDED BIOPSY ABDOMEN/RETROPERITONEAL MASS Routine 08/05/23 1750 The History and Physical (completed in the past 30 days) has been reviewed and the patient has been examined. The contents accurately reflect the patient's condition with the following additions or revisions since the H&P was completed. ASA Class: ASA Class:: Patient with mild systemic disease Examination indicates no changes. AIRWAY: Airway Visualization of Uvula: Yes Mouth opening greater than 2 fingerbreadths: Yes Neck Full Range of Motion: Yes LUNGS: Lungs clear to auscultation CARDIAC: Regular rhythm,Regular rate Provisional Diagnosis/Treatment Plan: CT guided abdominal nodule biopsy under moderate sedation SEDATION GOAL: Moderate This H&P can be found in the attached. SIGNATURE: Allan Kerr MD PATIENT NAME: Kristin Lara DATE: August 18, 2023 TIME: 7:59 AM PAGER: Associated attestation - Bear Bahena MD - 08/18/2023 11:00 AM EDT Radiology Attending Note I evaluated the patient and personally participated in the reyes components. I agree with the resident's findings and plan as documented and have discussed the case and management of the patient's care with the resident. Signature: Bear Baehna MD Date: 08/18/2023 Time: 11:00 AM Source Note - Vickie James MD - 08/06/2023 2:00 PM EST HISTORY AND PHYSICAL Kristin Lara presents for endoscopic procedure Current history and physical on file: No Is a new History and Physical required for today's visit? Yes Indication for procedure: Please see procedure's ordering provider for details (encounter/endoscopy order details). PROCEDURE(S) SCHEDULED FOR: Please see consent form for details of endoscopic procedure. BASELINE BEHAVIOR: Calm BASELINE ORIENTATION: Alert and oriented x3 All medications and allergies reviewed: Yes Skin Assessment: Warm dry mucus membranes pink Airway/Respiratory Assessment: Airway: visualization of the uvula- Yes Mouth: opening greater than 2 fingerbreadths- Yes Neck: full range of motion- Yes Breath sounds clear/equal- Yes Cardiac Assessment: Regular rate and rhythm without murmur Abdominal Assessment: Abdomen soft, non-tender, no masses or organomegaly. Sedation Plan: Anesthesia (MAC or GA) Consent: Obtained, please see consent form for details. 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 Sumit James MD MSc Advanced Interventional Endoscopy GI/Bariatric Endoscopy [facility] - [facility] documented in this encounter [facility] 08-15-2023 Nurse Note This visit was completed via telephone. Gretchne Del Castillo RN ONCOLOGY PATIENT EDUCATION NOTE TOPIC: Chemotherapy, Medications: Folfirinox READINESS TO LEARN: COGNITIVE ABILITY: Alert and oriented MOTIVATION TO LEARN: Interested FAMILY SUPPORT: High - Very involved in pt care INSTRUCTION PROVIDED TO: Patient INSTRUCTION PROVIDED BY: Nurse Coordinator PATIENT LEARNS BEST BY: Multiple Methods FACTORS AFFECTING LEARNING: None PHYSICAL LIMITATIONS AFFECTING LEARNING: None LEARNING RESPONSE DIAGNOSIS: Pancreas Cancer METHOD OF INSTRUCTION: Individual instruction Written instruction - handouts Verbal instruction PATIENT/FAMILY RESPONSE: Verbalizes understanding of: CHEMOTHERAPY-Regimen, toxicity and side effects FOLLOW UP PLAN: Patient instructed to call with any further issues Recommend - Recommend continued instruction and follow up as directed Follow up phone call. Contact information given. SUPPLEMENTAL MATERIAL: Written material was provided at this visit with the following information: - Chemotherapy education was provided by a pharmacist NO - Side effect management information was provided/discussed including but not limited to: anemia, appetite changes, arthralgia, bowel habit changes, diet, electrolyte disturbances, fatigue, hair loss, hand-foot syndrome, infection, nausea/vomitting, peripheral neuropathy, rash, skin changes, taste changes, thrombocytopenia YES - Provided important phone numbers and contacts during and after hours. YES - Provided information on symptoms that require immediate assistance. YES - Provided Chemotherapy when to call handouts YES - Preventing infection. YES - Treatment schedule and confirmation of appointment times. YES - Available support groups. YES - The importance of contraception during the course of chemotherapy YES - Neutropenic fever protocol discussed with patient, which included the importance of reporting any fever of 100.4F (38.0C) or greater to the healthcare team as noted on the provided wallet card and/or magnet. YES Time Spent: 60 minutes REFERRAL (RECOMMENDATION): Nutrition and Social Work Gretchen Del Castillo RN Global Clinical Leader Pre Chemo Patient identified by name and date of . YES Confirmed date and time for chemotherapy ? YES Other appointments (labs, imaging) discussed? YES Discussed where to park (customs import specialist), charge for parking YES Discussed where to report (building/floor) YES Any pre-medications ordered? NO Described the infusion room and what to expect. (What to wear, what to bring [iPad, books] amount of time treatment can take, meals and CC options for food) YES Note: Discussed whether the patient can eat prior to labs and treatment. YES Who is driving you to and from treatment? Spouse or family member Discussed why it is important to bring someone with you. Yes, for the first treatment Resources discussed (music therapy, Art therapy, pet therapy, etc.) NO Education on chemotherapy (drug, side effects) discussed and that the patient will be receiving a C1D1 call within 7 days of treatment. YES Other topics discussed, interventions needed: Gretchen Del Castillo RN documented in this encounter [facility] 08-13-2023 Miscellaneous Notes Patient scheduled for start and email sent. Sara Crouch Labs today. done Dr. Clifton for port TENA. Patient will have port placed 08/20 in [place] [facility] teaching. Scheduled Begin FOLFIRINOX once port placed. CBC/CMP/magnesium/CA 19-9/straight back cycle #1. OV/CBC/CMP/magnesium/CA 19-9 for cycle #2. documented in this encounter [facility] 08-12-2023 Nurse Note Pre-procedure phone calls: ? Contacted Kristin Lara, spoke with Yary and confirmed appt. for CT guided Abdominal Mass (perihepatic nodule) biopsy scheduled on Friday08/18/23, at [facility]. I will be providing you with important instructions for your procedure, if not followed your procedure may need to be cancelled or rescheduled. Arrival: Arrive to desk QB[facility] ([facility]) by 7:30 AM and check in for your procedure. Please bring your Photo ID and Insurance Card. A general consent may need to be signed. Labs: Labs completed on 08/04/23 and 08/12/23 Diet: Do not eat any solid food after 12 Midnight the night before your procedure. You may drink clear liquids until 7:30 AM the morning of your procedure, which means black coffee or water only. ? Medications: You may take your prescribed medications with small sips of water. ? Channel Marketing Specialist/Transportation: You will need a responsible adult to accompany you to and from the procedure. Your concrete mixer truck driver is required to stay with you until you are taken into the Procedure room. Recovery expectations: You will be in the recovery room post procedure for a minimum of 1 Hour-2 hours Written instructions provided to patient via [employer]? If you have any questions please don't hesitate to call us at [phone] documented in this encounter [facility] 08-12-2023 Note [facility] 08-12-2023 Miscellaneous Notes Met with patient and introduced myself. Patient was given a My Journey binder with chemocare information, office contact information, thermometer, and additional chemotherapy resource booklets. Patient aware this nurse will review on scheduled appointment date. Gretchen Del Castillo RN documented in this encounter [facility] 08-12-2023 History of Present illness Narrative Patient referred by Dr. Nascimento for pancreas cancer. The impression and plan will be communicated by way of the shared electronic record or faxed under separate cover letter. HPI: The patient is a 73-year-old male with past medical history significant for hypertension, renal lithiasis, BOSS and GI bleed (admitted 04/16/2021 [facility] for hematemesis; previous laparotomy with wedge resection of gastric fundus and Sam fundoplication 2009 for GI bleed) and recent diagnosis of pancreas cancer. Gastric ulcer secondary to NSAID use in 2009. Recently developed jaundice. CT A/P [facility] 07/30/2023: FINDINGS: The visualized lung bases are unremarkable. The visualized portions of the heart are within normal limits. Moderate degree of the intrahepatic biliary ductal dilatation. There is dilatation of the common bile duct. It measures 1.4 cm in transverse dimension. The distal portion of the common bile duct is not well visualized. There are surgical clips in the gallbladder fossa consistent with a prior cholecystectomy. Normal spleen. I suspect a 3.5 cm x 2.6 cm mass in the head of the pancreas. There is diffuse atrophy of the pancreas. There is diffuse irregular pancreatic ductal dilatation. Correlation with ERCP is recommended to rule out obstruction of the distal portion of the common bile duct. Soft tissue fullness is seen in the region of the celiac axis. Adenopathy should be ruled out. Normal bilateral adrenal glands. Normal right kidney. Nonobstructive 7.3 mm calculus in the lower pole calyx of the left kidney. There is a moderate-sized hiatal hernia. Prior subtotal gastrectomy. Normal small intestine. There are multiple colonic diverticula consistent with diverticulosis. The appendix is visualized and appears normal. Normal abdominal aorta. Normal inferior vena cava. Normal retroperitoneum. Normal urinary bladder. The prostate measures 3.7 cm x 4.5 cm. Central calcifications are seen. Results of prior bilateral inguinal hernia repair and lower anterior abdominal wall repair with mesh. There are diffuse degenerative changes of the visualized lumbar spine. Minimal anterior listhesis of L5 and S1 with a spondylolysis of the pars interarticularis of the L5 vertebrae. IMPRESSION: Dilated intrahepatic biliary duct as well as the pancreatic duct and common bile duct. Findings suggestive of a mass in the head of the pancreas. Correlation with ERCP is recommended. The patient is status post cholecystectomy. Nonobstructive calculus in the lower pole calyx of left kidney. Status post partial gastric resection. CT pancreas 08/05/2023: IMPRESSION: 3.2 cm pancreatic head mass with vascular involvement as described. Severe biliary dilation, slightly increased from 07/30/2023 CT. 1.2 cm perihepatic node/nodule, possibly metastatic. Few additional prominent periportal nodes; attention on follow-up. MORPHOLOGIC EVALUATION: a.Location: Head /Uncinate b. Size: 2.8 x 3.2 x 3.0 cm (CC x AP x T) (2:53, 4:44) c.Density:Hypodense d. Pancreatic duct abrupt cut off :Present e. Pancreatic duct upstream dilatation: Present, measuring up to 1.6 cm (2:48). f. Biliary tree abrupt cut off:Present e. Biliary tree upstream dilatation: Severe intrahepatic and extrahepatic biliary duct dilation, slightly increased from prior. ARTERIAL EVALUATION SMA Degree of solid soft tissue contact: None Degree of increased hazy attenuation/stranding contact: < 180 degrees (4:50) Focal vessel narrowing or contour irregularity: Absent Extension to first SMA branch: Probably present CELIAC AXIS Degree of solid soft tissue contact: None Degree of increased hazy attenuation/stranding contact: > 180 degrees Focal vessel narrowing or contour irregularity: Present, focal narrowing of the distal celiac trunk (3:155) ALEX Degree of solid soft tissue contact: None Degree of increased hazy attenuation/stranding contact: > 180 degrees Focal vessel narrowing or contour irregularity: Absent Extension to celiac axis: Present Extension to bifurcation of right/left hepatic artery: Absent ARTERIAL VARIANT ANATOMY: Absent VENOUS EVALUATION MPV: Present Degree of solid soft tissue contact: <180 degrees (7:42) Degree of increased hazy attenuation/stranding contact: < 180 degrees Focal vessel narrowing or contour irregularity: Absent SMV: Absent Degree of solid soft tissue contact: None Degree of increased hazy attenuation/stranding contact: None Focal vessel narrowing or contour irregularity: Absent Extension to first draining vein: Absent Venous thrombus: No venous thrombosis. Venous collaterals: None CONTIGUOUS ORGAN INVASION: None SUSPICIOUS LYMPH NODES: Few prominent upper abdominal nodes, for example: * 0.8 cm periportal node (5:44) * 1 cm portal caval node (5: 49) LIVER LESIONS: Absent. PERITONEUM: Ascites absent. 1.2 cm node/nodule anterior to the right hepatic lobe (5:53). OTHER ABDOMINAL FINDINGS: Spleen: No mass. No splenomegaly. Calcified granulomas. Adrenals: No mass. Kidneys: 8 mm left lower pole calculus. Subcentimeter lesions too small to characterize but likely benign. No solid mass or hydronephrosis. GI tract: No dilation or wall thickening. Moderate hiatal hernia. Surgical clips at the GE junction. Normal appendix. Colonic diverticulosis. Pelvis: No mass, ascites or fluid collection. Bones/Soft Tissues: Degenerative changes. Mesh anchors along the lower anterior abdominal wall. Lower thorax: A chest CT performed will be reported separately. Telesales Team Leader (topogram) images: No additional findings. Underwent EGD/EUD along with ERCP on 08/06/2023. On EUS was noted to have an irregular mass in the pancreatic head. It was hypoechoic. Measured 3 cm in maximal cross-sectional diameter. Borders were poorly defined. Fine-needle biopsy was performed. 2 passes with a 22-gauge shark core biopsy needle using transduodenal approach was utilized. The celiac plexus and celiac ganglia were visualized and showed no signs of significant endosonographic abnormality. ERCP--Was found to have a single severe segmental biliary stricture in the lower third of the main bile duct and middle third of the main bile duct. It was malignant appearing. Upper third of the duct was severely dilated. Sphincterotomy was performed. Biliary tree was swept and nothing was found. A plastic stent was placed into the common bile duct. Pathology: Pancreas, head, mass, biopsy: -Adenocarcinoma Normal appetite. Occasional nausea. Bowels moving. Stool color back to normal. No pain. Prior very active. Was dx borderline DM last year. Made an effort to lose weight--32 lbs. Was able to come off metformin. PAST MEDICAL HISTORY Diagnosis Date Acute gastritis without mention of hemorrhage Diverticulosis of colon (without mention of hemorrhage) Hernia of unspecified site of abdominal cavity without mention of obstruction or gangrene hiatal Iron deficiency anemia, unspecified Nonalcoholic steatohepatitis (BOSS) Unspecified essential hypertension Essential hypertension PAST SURGICAL HISTORY Procedure Laterality Date CHOLECYSTECTOMY 10/2004 laparoscopic COLONOSCOPY FLX DX W/COLLJ SPEC WHEN PFRMD 12/16/07 Extensive sigmoid diverticulosis COLONOSCOPY FLX DX W/COLLJ SPEC WHEN PFRMD 05/25/10 Extensive sigmoid diverticulosis EGD TRANSORAL BIOPSY SINGLE/MULTIPLE 12/16/07 HH, Schatzki ring,antral gastritis EGD TRANSORAL BIOPSY SINGLE/MULTIPLE 05/25/10 HH LAPAROSCOPY SURG RPR INITIAL INGUINAL HERNIA 02-01-08 RIGHT inguinal hernia LAPAROSCOPY SURG RPR INITIAL INGUINAL HERNIA LEFT inguinal hernia PAST SURGICAL HISTORY OF 05/14/2011 Hernia repair REMV CATARACT EXTRACAP,INSERT LENS Right 11/02/2020 SN60WF +16.0 D ALLERGIES Allergen Reactions Phenergan [Prometha* vital signs dropped Current Outpatient Medications Medication Sig VITAMIN E, BULK, MISC 400 Units two times a day. losartan (COZAAR) 50 mg tablet Take 50 mg by mouth once daily. cholecalciferol, vitamin D3, (VITAMIN D3 ORAL) Take by mouth once daily. saw/vit E/sod jerson/lyc/beta/pyg (PROSTATE HEALTH ORAL) Take by mouth once daily. ondansetron orally disintegrating 4 mg ORAL disintegrating tablet Take 1 tablet by mouth every 8 hours as needed. FOR NAUSEA (Patient not taking: Reported on 10/17/2020 ) No current facility-administered medications for this visit. 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 Family History Problem Relation Age of Onset Stroke Mother age 72 Diabetes Father age 90 and prostate cancer Cataract Father Prostate Cancer Father Psychiatry Sister A & W, controlled with medication Hypertension Sister Diabetes Sister A & W Diabetes Brother A & W Diabetes Brother A & W Diabetes Brother A & W Diabetes Brother A & W None Brother A & W Colon Cancer Brother Father--Prostate cancer low grade in his 60s. Lived to 90. Brother--Colon cancer-- from metastatic disease age 77. Daughter--Breast cancer age 39. Now Two years out. First cousin--Pancreas cancer (mothers are sisters). Breast cancer on 's side. ROS: Constitutional: No fever. No drenching night sweats. Neuro: No recent GO, vertigo, dizziness or imbalance. No symptoms of sensory neuropathy. HEENT: No recent change in voice, vision or hearing. Resp: No cough, wheeze of hemoptysis. No shortness of breath at rest. CVS: No exertional chest pain, PND or orthopnea. No extremity swelling/edema. No symptoms of claudication. No painful or tender varicose veins. GI: See above. : No dysuria or gross hematuria. No symptoms of bladder outlet obstruction. Endo: No hot flashes. No polyuria or polydipsia. No heat or cold intolerance. Musculoskeletal: No bone, back, joint and muscular pain. Derm: No current rash. No history of jaundice. No diffuse pruritis. Heme: No unusual bleeding and unexplained bruising. Psych: Normal mood. PHYSICAL EXAM: Vitals: Blood pressure 161/92, pulse 117, temperature 36.6 C (97.8 F), height 176.8 cm (5' 9.59 ), weight 88.9 kg (196 lb), SpO2 100%. Well-appearing and in no acute distress. EYES: Sclerae are mildly icteric bilaterally. ENT: Oral mucosa is unremarkable. LYMPHATIC: There is no palpable cervical, supraclavicular adenopathy. RESPIRATORY: Inspiratory breath sounds are of normal intensity in all velazquez. No rales, wheezes or rhonchi. Expiratory phase is normal. CARDIOVASCULAR: Rhythm is regular. ABDOMEN: The abdomen is nondistended. No splenomegaly or hepatomegaly. No tenderness or mass. Extremities: No swelling or edema. SKIN: No rash. No petechiae. NEUROLOGIC: liquified natural gas technician II-XII are grossly intact. No focal motor weakness. LABS: Component Latest Ref Rng & Units 08/04/2023 WBC 3.70 - 11.00 k/uL 8.54 RBC 4.20 - 6.00 m/uL 4.05 (L) Hemoglobin 13.0 - 17.0 g/dL 11.6 (L) Hematocrit 39.0 - 51.0 % 33.1 (L) MCV 80.0 - 100.0 fL 81.7 MCH 26.0 - 34.0 pg 28.6 MCHC 30.5 - 36.0 g/dL 35.0 RDW-CV 11.5 - 15.0 % 18.4 (H) Platelet Count 150 - 400 k/uL 303 MPV 9.0 - 12.7 fL 11.6 Neut% % 78.0 Abs Neut (ANC) 1.45 - 7.50 k/uL 6.66 Lymph% % 10.3 Abs Lymph 1.00 - 4.00 k/uL 0.88 (L) [place]% % 7.5 Abs [place] <0.87 k/uL 0.64 Eosin% % 2.7 Abs Eosin <0.46 k/uL 0.23 Baso% % 0.7 Abs Baso <0.11 k/uL 0.06 Immature Gran % % 0.8 IMMATURE GRANS (ABS) <0.10 k/uL 0.07 NRBC /100 WBC 0.0 Absolute nRBC <0.01 k/uL <0.01 DTYPE Auto Protein, Total 6.3 - 8.0 g/dL 6.1 (L) Albumin 3.9 - 4.9 g/dL 3.4 (L) Calcium 8.5 - 10.2 mg/dL 9.1 Bilirubin, Total 0.2 - 1.3 mg/dL 19.9 (H) Alkaline Phosphatase 38 - 113 U/L 618 (H) AST 14 - 40 U/L 182 (H) ALT 10 - 54 U/L 237 (H) Glucose 74 - 99 mg/dL 208 (H) BUN 9 - 24 mg/dL 26 (H) Creatinine Sodium 136 - 144 mmol/L 130 (L) Potassium 3.7 - 5.1 mmol/L 3.0 (L) Chloride 97 - 105 mmol/L 98 CO2 22 - 30 mmol/L 23 Anion Gap 9 - 18 mmol/L 9 eGFR CA19-9 <36.0 U/mL 1,812.0 (H) ASSESSMENT/PLAN: (C25.0) 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) (primary encounter diagnosis) (K83.1) Biliary obstruction Assessment: -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 -Caris on tumor specimen pending. -Biliary obstruction on presentation. Plastic stent placed 08/06/2023. -Personally reviewed CT images with patient and family. Also independently verified and agree with radiologist interpretation. Suspicious mesenteric nodule anterior to the lower right lobe of the liver. Prominent upper abdominal lymph nodes. -In-depth discussion with the patient and family today regarding approach to therapy. Not clear that he will be a candidate for resection and I recommended initiating systemic chemotherapy with FOLFIRINOX (family history of colon and pancreas cancer) while awaiting results of NGS and genetic testing. -I the rationale, logistics, potential risks (including but not limited to alopecia, cytopenias, nausea vomiting, diarrhea, rash, neuropathy, fatigue, infections and the small potential for as a consequence of severe toxicity/complications of therapy), benefits and alternatives, as well as the personnel involved in the administration of modified FOLFIRINOX. I answered his questions in detail and he verbalized understanding and agreed with the recommended therapy. Please see the electronic consent document for details of doses and schedule. Plan: -Genetic counseling already scheduled. -Biopsy of abdominal nodule. -Dr. Clifton for port. -DPYD/[id number] -Hep remote. -CBC, CMP, magnesium today. -Will need aggressive anti-emetic regimen. Chemotherapy teaching. -Begin chemotherapy once port placed and abdominal nodule biopsied. -Monitor CA 19-9. -CT scans following 4 cycles of chemotherapy pending tolerance. I spent a total of 75 minutes on the date of the service which included preparing to see the patient, [id number] patient care, completing clinical documentation, obtaining and/or reviewing separately obtained history, performing a medically appropriate examination, counseling and educating the patient/family/caregiver, ordering medications, tests, or procedures, communicating with other HCPs (not separately reported), and communicating results to the patient/family/caregiver. Phong Aj DO documented in this encounter [facility] 08-12-2023 Note [facility] 08-07-2023 Miscellaneous Notes Called patient with results of EUS biopsy, biopsy confirms pancreatic adenocarcinoma as we had suspected. He has an appointment with Dr. Aj on Friday. Tobi Nascimento MD documented in this encounter [facility] 08-07-2023 Miscellaneous Notes Scheduled as directed Yadira Boles Dr. Nascimento from [facility] is referring this patient for suspected pancreas cancer. Biopsy tomorrow. For next Friday morning, move the existing 830 and 9:00 patient to [place]. Please schedule this patient at 830 in block 1 hour for a new patient appointment. Phong Aj DO documented in this encounter [facility] 08-06-2023 Nurse Note AMBULATORY PATIENT EDUCATION NOTE TOPIC: GI PROCEDURES: Endoscopic Ultrasound (EUS) with or without Fine Needle Aspiration (FNA) Esophagogastroduodenoscopy(EGD) with or without biopies based on clinical findings, removal of polyps or lesions READINESS TO LEARN INSTRUCTION PROVIDED TO: Patient, readness to learn accessed prior to procedure COGNITIVE ABILITY: Alert and oriented PTED MOTIVATION TO LEARN: Interested FAMILY SUPPORT: High - Very involved in pt care IPATIENT LEARNS BEST BY: Individual Instruction Written Instruction - Hand-outs Verbal Instruction FACTORS AFFECTING LEARNING: None PHYSICAL LIMITATIONS AFFECTING LEARNING: None LEARNING RESPONSE METHOD OF INSTRUCTION: Individual instruction PATIENT / FAMILY RESPONSE: Verbalizes understanding of: WORSENING CONDITION-Signs and symptoms of a worsening condition that warrant a call to the physician FOLLOW-UP PLAN: Patient instructed to call with any further issues SUPPLEMENTAL MATERIAL: Procedure Discharge Instructions REFERRAL (RECOMMENDATION): None documented in this encounter [facility] 08-06-2023 Note [facility] 08-06-2023 History and physical note HISTORY AND PHYSICAL Kristin Lara presents for endoscopic procedure Current history and physical on file: No Is a new History and Physical required for today's visit? Yes Indication for procedure: Please see procedure's ordering provider for details (encounter/endoscopy order details). PROCEDURE(S) SCHEDULED FOR: Please see consent form for details of endoscopic procedure. BASELINE BEHAVIOR: Calm BASELINE ORIENTATION: Alert and oriented x3 All medications and allergies reviewed: Yes Skin Assessment: Warm dry mucus membranes pink Airway/Respiratory Assessment: Airway: visualization of the uvula- Yes Mouth: opening greater than 2 fingerbreadths- Yes Neck: full range of motion- Yes Breath sounds clear/equal- Yes Cardiac Assessment: Regular rate and rhythm without murmur Abdominal Assessment: Abdomen soft, non-tender, no masses or organomegaly. Sedation Plan: Anesthesia (MAC or GA) Consent: Obtained, please see consent form for details. 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 Sumit James MD MSc Advanced Interventional Endoscopy GI/Bariatric Endoscopy [facility] - [facility] documented in this encounter [facility] 08-05-2023 Note [facility] 08-05-2023 History of Present illness Narrative Surgical Oncology This is a 73-year-old male who presents for the evaluation of jaundice. He has noticed pale stools, dark urine and progressive jaundice. He denies pain. He has lost some weight but nothing dramatic. No fevers/chills or mental status changes. Hx HTN on losartan, healthy otherwise Prior open Jessi-Sam ([place]) Non smoker No FHx cancer Blood pressure 121/71, pulse 107, temperature 36.3 C (97.3 F), temperature source Temporal, height 180.3 cm (5' 11 ), weight 88 kg (194 lb). Heart Reg Breathing comfortably on RA Abdo SNT Direct review of CT chest, pancreas/pelvis -~6mm nodule right lower lobe -double duct sign, concern for ALEX/celiac involvement, pancreatic atrophy -perihepatic nodule CA19-9 1811 (albeit in the context of bili 19) Bili 19 Imp: This is almost certainly a locally advanced pancreatic adenocarcinoma presenting with obstructive jaundice Plan: ERCP/EUS/biopsy tomorrow, favor metal stent Consider percutaneous biopsy of perihepatic nodule for accuracy of staging and defining treatment intent Regardless of final staging I do think that systemic chemotherapy is the next best step - I have reached out to Dr. Aj and he will get him in early next week to get the ball rolling on that Referral for genetic testing If his bowel movements do not go back to 'normal' after biliary stenting consider adding pancreatic enzyme replacement e.g. creon Discussed in detail with patient and family Medical Decision Making: Problems: High: Illness/injury w/ threat to life/body function Data: Unique test result(s) reviewed: 2 Unique test(s) ordered: 1 Discussed management or test w/ external physician/QHCP/source Medical Decision Making Level: 5 - High Tobi Nascimento MD documented in this encounter [facility] 08-05-2023 Nurse Note What is the reason for your visit today? Consult Who is your referring physician? Dr. Nascimento Are you having poor oral intake? NO Have you had unintentional weight loss of 15 lbs/7 Kg in the last 3-6 months? YES Bowels: regular Wound: clean & dry Temperature: No Drains: No documented in this encounter [facility] 08-05-2023 History of Present illness Narrative Radiology Service Progress Note DATE OF SERVICE: August 05, 2023 TIME: 11:09 AM PATIENT WEIGHT: 190LBS PATIENT IDENTITY VERIFICATION COMPLETED USING TWO (2) STANDARD IDENTIFIERS: Name and Date of confirmed by patient verbally and Name and Date of confirmed by identification band. FALL SCREENING: Has the patient had 2 falls in the last year or 1 fall with injury or currently using an Ambulatory Assistive Device (Walker, Cane, Wheelchair, Crutches, etc.)? No PATIENT GENDER DATA: Male ALLERGIES: Reviewed and unchanged CONTRAST ALLERGY: No EXAM: CT -CONTRAST INDUCED NEPHROPATHY RISK FACTORS: Patient age > 60 years, History of Kidney surgery, Kidney neoplasm, Liver disease, and/or any recent Nephrotoxic Chemotherapy or other Nephrotoxic medications, and Dehydration CREATININE: Creatinine Date Value Ref Range Status 05/20/2011 1.03 0.70 - 1.40 mg/dL Final 05/17/2011 0.78 0.70 - 1.40 mg/dL Final Creatinine (POCT) Date Value Ref Range Status 08/05/2023 1.40 0.7 - 1.4 mg/dL Final eGFR (POCT) Date Value Ref Range Status 08/05/2023 54 mL/min/1.73 m2 Final eGFR- Date Value Ref Range Status 05/07/2011 >60 Final P.O.C.T. RESULTS: POC done: Yes, See Lab Tab August 05, 2023, Creatinine 1.4, eGFR 54 TREATMENT: No Hydration needed. IV SITE: Ambulatory: A peripheral IV was started in the Right antecubital site with a Angio cath: 20 gauge. and A Saline lock was inserted per protocol IV SITE APPEARANCE: Clean,Dry and Intact SIGNATURE: Teresa Aggarwal RN PATIENT NAME: Kristin Lara DATE: August 05, 2023 TIME: 11:09 AM Radiology Service Progress Note PATIENT NAME: Kristin Lara DATE OF SERVICE: August 05, 2023 TIME: 12:03 PM PATIENT IDENTITY VERIFICATION COMPLETED USING TWO (2) IDENTIFIERS: Name and Date of confirmed by patient verbally and Name and Date of confirmed by identification band. FALL SCREENING: Has the patient had 2 falls in the last year or 1 fall with injury or currently using an Ambulatory Assistive Device (Walker, Cane, Wheelchair, Crutches, etc.)? No PATIENT GENDER DATA: Male PATIENT RELEVANT IMPLANT DATA REVIEWED: Yes PATIENT PRESENTS WITH AN IMPLANTABLE OR ATTACHED SELLING SPECIALIST: No RADIOLOGY DEPARTMENT: CT; Exam(s) Completed: Chest and Pancreas PERIPHERAL IV DATA: Site assessment: Clean,Dry and Intact, Site disposition Discontinued SIGNED BY: RT Matthew(R) August 05, 2023 12:03 PM documented in this encounter [facility] 08-05-2023 Note [facility] 08-05-2023 Note [facility] 07-31-2023 Miscellaneous Notes Patient had only a CT abd/pel completed at [facility] Patient going to hand carry images. Apt made with Dr. Nascimento on at 1/:15 pm. No other work up completed. Patient stated jaundice but tolerable and not needing to go to emergency room. documented in this encounter [facility] 07-31-2023 Miscellaneous Notes Left VM for patient. Received referral for pancreatic mass, and obstructive jaundice. Updated pcp office Dr. Jerez is not available next week would work on records and see one of his partners. Left call back number documented in this encounter [facility] 11-02-2020 Note Post Operative Note: Post-Procedure Diagnosis: 1. Combined Form Age Related Cataract Right Eye Procedure: 1. Cataract Extraction with Intraocular Lens Implant Right Eye Surgeon: Jarrett Martinez MD Resident/Fellow/Other Bicycle Ii Assembler: None Estimated Blood Loss (mL): none Specimen: [...] Last Updated: 02-Nov-2020 14:00 by Jarrett Martinez) [facility] 11-02-2020 Note History & Physical R eviewed: [...] Last Updated: 02-Nov-2020 12:40 by Jarrett Martinez) [facility] 10-02-2020 History of Past i llness Narrative Problem Noted Date Diagnosed Date Resolved Date Combined forms of age-relate d cataract of right eye 10/02/2020 05/07/2021 VTE Prophylaxis 05/15/2011 07/18/2011 Overview: The pt is on Heparin 5000 units SC BID and SCD for VTE prophylaxis. No signs or symptoms of DVT/PE. The patient is at moderate risk for VTE. Plan: - d/c home, no further prophylaxis . Discharge planning 05/15/2011 2 Overview: Patient , lives in [place], [place]. Do not anticipate any needs at time of discharge Plan: - d/c home this afternoon, plan to follow up with Dr. Warner one week Atelectasis 05/14/2011 05/19/2011 Overview: 05/18/2011 Patient noted to have Post-operative atelectasis noted on chest x-ray. Plan: - Respiratory therapy - Encourage coughing and deep breathing - Acapella - Aggressive pulmonary hygiene. - Encourage progressive ambulaton. . Other acute postoperative pain 05/14/2011 07/18/2011 Overview: Pt reports adequate pain control on current regimen consisting of lidoderm and Oxycodone. Pt c/o groggy from oxycodone. Oxycodone stoped and Tylenol #3 elixir and Motrin started. Plan: - Continue to re-assess pain control- plan to d/c today on above regimen if pain well controlled . Intravascular volume depletion 05/14/2011 05/16/2011 Iron deficiency 01/02/2011 11/14/2011 ANEMIA IRON DEF, CHR BLOOD LOSS 12/16/2007 01/02/2011 Iron deficiency anemia, unspecified 11/14/2011 Overview: Patient noted to have iron deficiency anemia prior to surgery. In 2007, he became anemic and has had hemoglobins levels as low as seven. He received IV iron for treatment. Current H/H stable at 11.3/37.6 on 05/17/2011 Plan: - pt will follow with PCP upon discharge . documented as of this encounter (statuses as of 07/31/2023) [facility] History of Past illness Narrative* Problem Noted Date Diagnosed Date Resolved Date Combined forms of age-relate d cataract of right eye 10/02/2020 05/07/2021 VTE Prophylaxis 05/15/2011 07/18/2011 Overview: The pt is on Heparin 5000 units SC BID and SCD for VTE prophylaxis. No signs or symptoms of DVT/PE. The patient is at moderate risk for VTE. Plan: - d/c home, no further prophylaxis . Discharge planning 05/15/2011 2 Overview: Patient , lives in [place], [place]. Do not anticipate any needs at time of discharge Plan: - d/c home this afternoon, plan to follow up with Dr. Warner one week Atelectasis 05/14/2011 05/19/2011 Overview: 05/18/2011 Patient noted to have Post-operative atelectasis noted on chest x-ray. Plan: - Respiratory therapy - Encourage coughing and deep breathing - Acapella - Aggressive pulmonary hygiene. - Encourage progressive ambulaton. . Other acute postoperative pain 05/14/2011 07/18/2011 Overview: Pt reports adequate pain control on current regimen consisting of lidoderm and Oxycodone. Pt c/o groggy from oxycodone. Oxycodone stoped and Tylenol #3 elixir and Motrin started. Plan: - Continue to re-assess pain control- plan to d/c today on above regimen if pain well controlled . Intravascular volume depletion 05/14/2011 05/16/2011 Iron deficiency 01/02/2011 11/14/2011 ANEMIA IRON DEF, CHR BLOOD LOSS 12/16/2007 01/02/2011 Iron deficiency anemia, unspecified 11/14/2011 Overview: Patient noted to have iron deficiency anemia prior to surgery. In 2007, he became anemic and has had hemoglobins levels as low as seven. He received IV iron for treatment. Current H/H stable at 11.3/37.6 on 05/17/2011 Plan: - pt will follow with PCP upon discharge . documented as of this encounter (statuses as of 08/06/2023) [facility] History of Past illness Narrative* Problem Noted Date Diagnosed Date Resolved Date Combined forms of age-relate d cataract of right eye 10/02/2020 05/07/2021 VTE Prophylaxis 05/15/2011 07/18/2011 Overview: The pt is on Heparin 5000 units SC BID and SCD for VTE prophylaxis. No signs or symptoms of DVT/PE. The patient is at moderate risk for VTE. Plan: - d/c home, no further prophylaxis . Discharge planning 05/15/2011 2 Overview: Patient , lives in [place], [place]. Do not anticipate any needs at time of discharge Plan: - d/c home this afternoon, plan to follow up with Dr. Warner one week Atelectasis 05/14/2011 05/19/2011 Overview: 05/18/2011 Patient noted to have Post-operative atelectasis noted on chest x-ray. Plan: - Respiratory therapy - Encourage coughing and deep breathing - Acapella - Aggressive pulmonary hygiene. - Encourage progressive ambulaton. . Other acute postoperative pain 05/14/2011 07/18/2011 Overview: Pt reports adequate pain control on current regimen consisting of lidoderm and Oxycodone. Pt c/o groggy from oxycodone. Oxycodone stoped and Tylenol #3 elixir and Motrin started. Plan: - Continue to re-assess pain control- plan to d/c today on above regimen if pain well controlled . Intravascular volume depletion 05/14/2011 05/16/2011 Iron deficiency 01/02/2011 11/14/2011 ANEMIA IRON DEF, CHR BLOOD LOSS 12/16/2007 01/02/2011 Iron deficiency anemia, unspecified 11/14/2011 Overview: Patient noted to have iron deficiency anemia prior to surgery. In 2007, he became anemic and has had hemoglobins levels as low as seven. He received IV iron for treatment. Current H/H stable at 11.3/37.6 on 05/17/2011 Plan: - pt will follow with PCP upon discharge . documented as of this encounter (statuses as of 08/06/2023) [facility] History of Past illness Narrative* Problem Noted Date Diagnosed Date Resolved Date Combined forms of age-relate d cataract of right eye 10/02/2020 05/07/2021 VTE Prophylaxis 05/15/2011 07/18/2011 Overview: The pt is on Heparin 5000 units SC BID and SCD for VTE prophylaxis. No signs or symptoms of DVT/PE. The patient is at moderate risk for VTE. Plan: - d/c home, no further prophylaxis . Discharge planning 05/15/2011 2 Overview: Patient , lives in [place], [place]. Do not anticipate any needs at time of discharge Plan: - d/c home this afternoon, plan to follow up with Dr. Warner one week Atelectasis 05/14/2011 05/19/2011 Overview: 05/18/2011 Patient noted to have Post-operative atelectasis noted on chest x-ray. Plan: - Respiratory therapy - Encourage coughing and deep breathing - Acapella - Aggressive pulmonary hygiene. - Encourage progressive ambulaton. . Other acute postoperative pain 05/14/2011 07/18/2011 Overview: Pt reports adequate pain control on current regimen consisting of lidoderm and Oxycodone. Pt c/o groggy from oxycodone. Oxycodone stoped and Tylenol #3 elixir and Motrin started. Plan: - Continue to re-assess pain control- plan to d/c today on above regimen if pain well controlled . Intravascular volume depletion 05/14/2011 05/16/2011 Iron deficiency 01/02/2011 11/14/2011 ANEMIA IRON DEF, CHR BLOOD LOSS 12/16/2007 01/02/2011 Iron deficiency anemia, unspecified 11/14/2011 Overview: Patient noted to have iron deficiency anemia prior to surgery. In 2007, he became anemic and has had hemoglobins levels as low as seven. He received IV iron for treatment. Current H/H stable at 11.3/37.6 on 05/17/2011 Plan: - pt will follow with PCP upon discharge . documented as of this encounter (statuses as of 08/07/2023) [facility] History of Past illness Narrative* Problem Noted Date Diagnosed Date Resolved Date Combined forms of age-relate d cataract of right eye 10/02/2020 05/07/2021 VTE Prophylaxis 05/15/2011 07/18/2011 Overview: The pt is on Heparin 5000 units SC BID and SCD for VTE prophylaxis. No signs or symptoms of DVT/PE. The patient is at moderate risk for VTE. Plan: - d/c home, no further prophylaxis . Discharge planning 05/15/2011 2 Overview: Patient , lives in [place], [place]. Do not anticipate any needs at time of discharge Plan: - d/c home this afternoon, plan to follow up with Dr. Warner one week Atelectasis 05/14/2011 05/19/2011 Overview: 05/18/2011 Patient noted to have Post-operative atelectasis noted on chest x-ray. Plan: - Respiratory therapy - Encourage coughing and deep breathing - Acapella - Aggressive pulmonary hygiene. - Encourage progressive ambulaton. . Other acute postoperative pain 05/14/2011 07/18/2011 Overview: Pt reports adequate pain control on current regimen consisting of lidoderm and Oxycodone. Pt c/o groggy from oxycodone. Oxycodone stoped and Tylenol #3 elixir and Motrin started. Plan: - Continue to re-assess pain control- plan to d/c today on above regimen if pain well controlled . Intravascular volume depletion 05/14/2011 05/16/2011 Iron deficiency 01/02/2011 11/14/2011 ANEMIA IRON DEF, CHR BLOOD LOSS 12/16/2007 01/02/2011 Iron deficiency anemia, unspecified 11/14/2011 Overview: Patient noted to have iron deficiency anemia prior to surgery. In 2007, he became anemic and has had hemoglobins levels as low as seven. He received IV iron for treatment. Current H/H stable at 11.3/37.6 on 05/17/2011 Plan: - pt will follow with PCP upon discharge . documented as of this encounter (statuses as of 08/07/2023) [facility] History of Past illness Narrative* Problem Noted Date Diagnosed Date Resolved Date Combined forms of age-relate d cataract of right eye 10/02/2020 05/07/2021 VTE Prophylaxis 05/15/2011 07/18/2011 Overview: The pt is on Heparin 5000 units SC BID and SCD for VTE prophylaxis. No signs or symptoms of DVT/PE. The patient is at moderate risk for VTE. Plan: - d/c home, no further prophylaxis . Discharge planning 05/15/2011 2 Overview: Patient , lives in [place], [place]. Do not anticipate any needs at time of discharge Plan: - d/c home this afternoon, plan to follow up with Dr. Warner one week Atelectasis 05/14/2011 05/19/2011 Overview: 05/18/2011 Patient noted to have Post-operative atelectasis noted on chest x-ray. Plan: - Respiratory therapy - Encourage coughing and deep breathing - Acapella - Aggressive pulmonary hygiene. - Encourage progressive ambulaton. . Other acute postoperative pain 05/14/2011 07/18/2011 Overview: Pt reports adequate pain control on current regimen consisting of lidoderm and Oxycodone. Pt c/o groggy from oxycodone. Oxycodone stoped and Tylenol #3 elixir and Motrin started. Plan: - Continue to re-assess pain control- plan to d/c today on above regimen if pain well controlled . Intravascular volume depletion 05/14/2011 05/16/2011 Iron deficiency 01/02/2011 11/14/2011 ANEMIA IRON DEF, CHR BLOOD LOSS 12/16/2007 01/02/2011 Iron deficiency anemia, unspecified 11/14/2011 Overview: Patient noted to have iron deficiency anemia prior to surgery. In 2007, he became anemic and has had hemoglobins levels as low as seven. He received IV iron for treatment. Current H/H stable at 11.3/37.6 on 05/17/2011 Plan: - pt will follow with PCP upon discharge . documented as of this encounter (statuses as of 08/08/2023) [facility] History of Past illness Narrative* Problem Noted Date Diagnosed Date Resolved Date Combined forms of age-relate d cataract of right eye 10/02/2020 05/07/2021 VTE Prophylaxis 05/15/2011 07/18/2011 Overview: The pt is on Heparin 5000 units SC BID and SCD for VTE prophylaxis. No signs or symptoms of DVT/PE. The patient is at moderate risk for VTE. Plan: - d/c home, no further prophylaxis . Discharge planning 05/15/2011 2 Overview: Patient , lives in [place], [place]. Do not anticipate any needs at time of discharge Plan: - d/c home this afternoon, plan to follow up with Dr. Warner one week Atelectasis 05/14/2011 05/19/2011 Overview: 05/18/2011 Patient noted to have Post-operative atelectasis noted on chest x-ray. Plan: - Respiratory therapy - Encourage coughing and deep breathing - Acapella - Aggressive pulmonary hygiene. - Encourage progressive ambulaton. . Other acute postoperative pain 05/14/2011 07/18/2011 Overview: Pt reports adequate pain control on current regimen consisting of lidoderm and Oxycodone. Pt c/o groggy from oxycodone. Oxycodone stoped and Tylenol #3 elixir and Motrin started. Plan: - Continue to re-assess pain control- plan to d/c today on above regimen if pain well controlled . Intravascular volume depletion 05/14/2011 05/16/2011 Iron deficiency 01/02/2011 11/14/2011 ANEMIA IRON DEF, CHR BLOOD LOSS 12/16/2007 01/02/2011 Iron deficiency anemia, unspecified 11/14/2011 Overview: Patient noted to have iron deficiency anemia prior to surgery. In 2007, he became anemic and has had hemoglobins levels as low as seven. He received IV iron for treatment. Current H/H stable at 11.3/37.6 on 05/17/2011 Plan: - pt will follow with PCP upon discharge . documented as of this encounter (statuses as of 08/12/2023) [facility] History of Past illness Narrative* Problem Noted Date Diagnosed Date Resolved Date Combined forms of age-relate d cataract of right eye 10/02/2020 05/07/2021 VTE Prophylaxis 05/15/2011 07/18/2011 Overview: The pt is on Heparin 5000 units SC BID and SCD for VTE prophylaxis. No signs or symptoms of DVT/PE. The patient is at moderate risk for VTE. Plan: - d/c home, no further prophylaxis . Discharge planning 05/15/2011 2 Overview: Patient , lives in [place], [place]. Do not anticipate any needs at time of discharge Plan: - d/c home this afternoon, plan to follow up with Dr. Warner one week Atelectasis 05/14/2011 05/19/2011 Overview: 05/18/2011 Patient noted to have Post-operative atelectasis noted on chest x-ray. Plan: - Respiratory therapy - Encourage coughing and deep breathing - Acapella - Aggressive pulmonary hygiene. - Encourage progressive ambulaton. . Other acute postoperative pain 05/14/2011 07/18/2011 Overview: Pt reports adequate pain control on current regimen consisting of lidoderm and Oxycodone. Pt c/o groggy from oxycodone. Oxycodone stoped and Tylenol #3 elixir and Motrin started. Plan: - Continue to re-assess pain control- plan to d/c today on above regimen if pain well controlled . Intravascular volume depletion 05/14/2011 05/16/2011 Iron deficiency 01/02/2011 11/14/2011 ANEMIA IRON DEF, CHR BLOOD LOSS 12/16/2007 01/02/2011 Iron deficiency anemia, unspecified 11/14/2011 Overview: Patient noted to have iron deficiency anemia prior to surgery. In 2007, he became anemic and has had hemoglobins levels as low as seven. He received IV iron for treatment. Current H/H stable at 11.3/37.6 on 05/17/2011 Plan: - pt will follow with PCP upon discharge . documented as of this encounter (statuses as of 08/12/2023) [facility]04-26-2021 History of Past illness Narrative* Problem Noted Date Diagnosed Date Resolved Date Combined forms of age-relate d cataract of right eye 10/02/2020 05/07/2021 VTE Prophylaxis 05/15/2011 07/18/2011 Overview: The pt is on Heparin 5000 units SC BID and SCD for VTE prophylaxis. No signs or symptoms of DVT/PE. The patient is at moderate risk for VTE. Plan: - d/c home, no further prophylaxis . Discharge planning 05/15/2011 2 Overview: Patient , lives in [place], [place]. Do not anticipate any needs at time of discharge Plan: - d/c home this afternoon, plan to follow up with Dr. Warner one week Atelectasis 05/14/2011 05/19/2011 Overview: 05/18/2011 Patient noted to have Post-operative atelectasis noted on chest x-ray. Plan: - Respiratory therapy - Encourage coughing and deep breathing - Acapella - Aggressive pulmonary hygiene. - Encourage progressive ambulaton. . Other acute postoperative pain 05/14/2011 07/18/2011 Overview: Pt reports adequate pain control on current regimen consisting of lidoderm and Oxycodone. Pt c/o groggy from oxycodone. Oxycodone stoped and Tylenol #3 elixir and Motrin started. Plan: - Continue to re-assess pain control- plan to d/c today on above regimen if pain well controlled . Intravascular volume depletion 05/14/2011 05/16/2011 Iron deficiency 01/02/2011 11/14/2011 ANEMIA IRON DEF, CHR BLOOD LOSS 12/16/2007 01/02/2011 Iron deficiency anemia, unspecified 11/14/2011 Overview: Patient noted to have iron deficiency anemia prior to surgery. In 2007, he became anemic and has had hemoglobins levels as low as seven. He received IV iron for treatment. Current H/H stable at 11.3/37.6 on 05/17/2011 Plan: - pt will follow with PCP upon discharge . documented as of this encounter (statuses as of 08/13/2023) [facility]04-26-2021 History of Past illness Narrative* Problem Noted Date Diagnosed Date Resolved Date Combined forms of age-relate d cataract of right eye 10/02/2020 05/07/2021 VTE Prophylaxis 05/15/2011 07/18/2011 Overview: The pt is on Heparin 5000 units SC BID and SCD for VTE prophylaxis. No signs or symptoms of DVT/PE. The patient is at moderate risk for VTE. Plan: - d/c home, no further prophylaxis . Discharge planning 05/15/2011 2 Overview: Patient , lives in [place], [place]. Do not anticipate any needs at time of discharge Plan: - d/c home this afternoon, plan to follow up with Dr. Warner one week Atelectasis 05/14/2011 05/19/2011 Overview: 05/18/2011 Patient noted to have Post-operative atelectasis noted on chest x-ray. Plan: - Respiratory therapy - Encourage coughing and deep breathing - Acapella - Aggressive pulmonary hygiene. - Encourage progressive ambulaton. . Other acute postoperative pain 05/14/2011 07/18/2011 Overview: Pt reports adequate pain control on current regimen consisting of lidoderm and Oxycodone. Pt c/o groggy from oxycodone. Oxycodone stoped and Tylenol #3 elixir and Motrin started. Plan: - Continue to re-assess pain control- plan to d/c today on above regimen if pain well controlled . Intravascular volume depletion 05/14/2011 05/16/2011 Iron deficiency 01/02/2011 11/14/2011 ANEMIA IRON DEF, CHR BLOOD LOSS 12/16/2007 01/02/2011 Iron deficiency anemia, unspecified 11/14/2011 Overview: Patient noted to have iron deficiency anemia prior to surgery. In 2007, he became anemic and has had hemoglobins levels as low as seven. He received IV iron for treatment. Current H/H stable at 11.3/37.6 on 05/17/2011 Plan: - pt will follow with PCP upon discharge . documented as of this encounter (statuses as of 08/15/2023) [facility]04-26-2021 History of Past illness Narrative* Problem Noted Date Diagnosed Date Resolved Date Combined forms of age-relate d cataract of right eye 10/02/2020 05/07/2021 VTE Prophylaxis 05/15/2011 07/18/2011 Overview: The pt is on Heparin 5000 units SC BID and SCD for VTE prophylaxis. No signs or symptoms of DVT/PE. The patient is at moderate risk for VTE. Plan: - d/c home, no further prophylaxis . Discharge planning 05/15/2011 2 Overview: Patient , lives in [place], [place]. Do not anticipate any needs at time of discharge Plan: - d/c home this afternoon, plan to follow up with Dr. Warner one week Atelectasis 05/14/2011 05/19/2011 Overview: 05/18/2011 Patient noted to have Post-operative atelectasis noted on chest x-ray. Plan: - Respiratory therapy - Encourage coughing and deep breathing - Acapella - Aggressive pulmonary hygiene. - Encourage progressive ambulaton. . Other acute postoperative pain 05/14/2011 07/18/2011 Overview: Pt reports adequate pain control on current regimen consisting of lidoderm and Oxycodone. Pt c/o groggy from oxycodone. Oxycodone stoped and Tylenol #3 elixir and Motrin started. Plan: - Continue to re-assess pain control- plan to d/c today on above regimen if pain well controlled . Intravascular volume depletion 05/14/2011 05/16/2011 Iron deficiency 01/02/2011 11/14/2011 ANEMIA IRON DEF, CHR BLOOD LOSS 12/16/2007 01/02/2011 Iron deficiency anemia, unspecified 11/14/2011 Overview: Patient noted to have iron deficiency anemia prior to surgery. In 2007, he became anemic and has had hemoglobins levels as low as seven. He received IV iron for treatment. Current H/H stable at 11.3/37.6 on 05/17/2011 Plan: - pt will follow with PCP upon discharge . documented as of this encounter (statuses as of 08/19/2023) [facility]04-26-2021 History of Past illness Narrative* Problem Noted Date Diagnosed Date Resolved Date Combined forms of age-relate d cataract of right eye 10/02/2020 05/07/2021 VTE Prophylaxis 05/15/2011 07/18/2011 Overview: The pt is on Heparin 5000 units SC BID and SCD for VTE prophylaxis. No signs or symptoms of DVT/PE. The patient is at moderate risk for VTE. Plan: - d/c home, no further prophylaxis . Discharge planning 05/15/2011 2 Overview: Patient , lives in [place], [place]. Do not anticipate any needs at time of discharge Plan: - d/c home this afternoon, plan to follow up with Dr. Warner one week Atelectasis 05/14/2011 05/19/2011 Overview: 05/18/2011 Patient noted to have Post-operative atelectasis noted on chest x-ray. Plan: - Respiratory therapy - Encourage coughing and deep breathing - Acapella - Aggressive pulmonary hygiene. - Encourage progressive ambulaton. . Other acute postoperative pain 05/14/2011 07/18/2011 Overview: Pt reports adequate pain control on current regimen consisting of lidoderm and Oxycodone. Pt c/o groggy from oxycodone. Oxycodone stoped and Tylenol #3 elixir and Motrin started. Plan: - Continue to re-assess pain control- plan to d/c today on above regimen if pain well controlled . Intravascular volume depletion 05/14/2011 05/16/2011 Iron deficiency 01/02/2011 11/14/2011 ANEMIA IRON DEF, CHR BLOOD LOSS 12/16/2007 01/02/2011 Iron deficiency anemia, unspecified 11/14/2011 Overview: Patient noted to have iron deficiency anemia prior to surgery. In 2007, he became anemic and has had hemoglobins levels as low as seven. He received IV iron for treatment. Current H/H stable at 11.3/37.6 on 05/17/2011 Plan: - pt will follow with PCP upon discharge . documented as of this encounter (statuses as of 08/19/2023) [facility]04-26-2021 History of Past illness Narrative* Problem Noted Date Diagnosed Date Resolved Date Combined forms of age-relate d cataract of right eye 10/02/2020 05/07/2021 VTE Prophylaxis 05/15/2011 07/18/2011 Overview: The pt is on Heparin 5000 units SC BID and SCD for VTE prophylaxis. No signs or symptoms of DVT/PE. The patient is at moderate risk for VTE. Plan: - d/c home, no further prophylaxis . Discharge planning 05/15/2011 2 Overview: Patient , lives in [place], [place]. Do not anticipate any needs at time of discharge Plan: - d/c home this afternoon, plan to follow up with Dr. Warner one week Atelectasis 05/14/2011 05/19/2011 Overview: 05/18/2011 Patient noted to have Post-operative atelectasis noted on chest x-ray. Plan: - Respiratory therapy - Encourage coughing and deep breathing - Acapella - Aggressive pulmonary hygiene. - Encourage progressive ambulaton. . Other acute postoperative pain 05/14/2011 07/18/2011 Overview: Pt reports adequate pain control on current regimen consisting of lidoderm and Oxycodone. Pt c/o groggy from oxycodone. Oxycodone stoped and Tylenol #3 elixir and Motrin started. Plan: - Continue to re-assess pain control- plan to d/c today on above regimen if pain well controlled . Intravascular volume depletion 05/14/2011 05/16/2011 Iron deficiency 01/02/2011 11/14/2011 ANEMIA IRON DEF, CHR BLOOD LOSS 12/16/2007 01/02/2011 Iron deficiency anemia, unspecified 11/14/2011 Overview: Patient noted to have iron deficiency anemia prior to surgery. In 2007, he became anemic and has had hemoglobins levels as low as seven. He received IV iron for treatment. Current H/H stable at 11.3/37.6 on 05/17/2011 Plan: - pt will follow with PCP upon discharge . documented as of this encounter (statuses as of 08/22/2023) [facility]04-[facility]-2021 History of Past illness Narrative* Problem Noted Date Diagnosed Date Resolved Date Combined forms of age-relate d cataract of right eye 10/02/2020 05/07/2021 VTE Prophylaxis 05/15/2011 07/18/2011 Overview: The pt is on Heparin 5000 units SC BID and SCD for VTE prophylaxis. No signs or symptoms of DVT/PE. The patient is at moderate risk for VTE. Plan: - d/c home, no further prophylaxis . Discharge planning 05/15/2011 2 Overview: Patient , lives in [place], [place]. Do not anticipate any needs at time of discharge Plan: - d/c home this afternoon, plan to follow up with Dr. Warner one week Atelectasis 05/14/2011 05/19/2011 Overview: 05/18/2011 Patient noted to have Post-operative atelectasis noted on chest x-ray. Plan: - Respiratory therapy - Encourage coughing and deep breathing - Acapella - Aggressive pulmonary hygiene. - Encourage progressive ambulaton. . Other acute postoperative pain 05/14/2011 07/18/2011 Overview: Pt reports adequate pain control on current regimen consisting of lidoderm and Oxycodone. Pt c/o groggy from oxycodone. Oxycodone stoped and Tylenol #3 elixir and Motrin started. Plan: - Continue to re-assess pain control- plan to d/c today on above regimen if pain well controlled . Intravascular volume depletion 05/14/2011 05/16/2011 Iron deficiency 01/02/2011 11/14/2011 ANEMIA IRON DEF, CHR BLOOD LOSS 12/16/2007 01/02/2011 Iron deficiency anemia, unspecified 11/14/2011 Overview: Patient noted to have iron deficiency anemia prior to surgery. In 2007, he became anemic and has had hemoglobins levels as low as seven. He received IV iron for treatment. Current H/H stable at 11.3/37.6 on 05/17/2011 Plan: - pt will follow with PCP upon discharge . documented as of this encounter (statuses as of 08/25/2023) [facility]04-26-2021 History of Past illness Narrative* Problem Noted Date Diagnosed Date Resolved Date Combined forms of age-relate d cataract of right eye 10/02/2020 05/07/2021 VTE Prophylaxis 05/15/2011 07/18/2011 Overview: The pt is on Heparin 5000 units SC BID and SCD for VTE prophylaxis. No signs or symptoms of DVT/PE. The patient is at moderate risk for VTE. Plan: - d/c home, no further prophylaxis . Discharge planning 05/15/2011 2 Overview: Patient , lives in [place], [place]. Do not anticipate any needs at time of discharge Plan: - d/c home this afternoon, plan to follow up with Dr. Warner one week Atelectasis 05/14/2011 05/19/2011 Overview: 05/18/2011 Patient noted to have Post-operative atelectasis noted on chest x-ray. Plan: - Respiratory therapy - Encourage coughing and deep breathing - Acapella - Aggressive pulmonary hygiene. - Encourage progressive ambulaton. . Other acute postoperative pain 05/14/2011 07/18/2011 Overview: Pt reports adequate pain control on current regimen consisting of lidoderm and Oxycodone. Pt c/o groggy from oxycodone. Oxycodone stoped and Tylenol #3 elixir and Motrin started. Plan: - Continue to re-assess pain control- plan to d/c today on above regimen if pain well controlled . Intravascular volume depletion 05/14/2011 05/16/2011 Iron deficiency 01/02/2011 11/14/2011 ANEMIA IRON DEF, CHR BLOOD LOSS 12/16/2007 01/02/2011 Iron deficiency anemia, unspecified 11/14/2011 Overview: Patient noted to have iron deficiency anemia prior to surgery. In 2007, he became anemic and has had hemoglobins levels as low as seven. He received IV iron for treatment. Current H/H stable at 11.3/37.6 on 05/17/2011 Plan: - pt will follow with PCP upon discharge . documented as of this encounter (statuses as of 08/25/2023) [facility]04-[facility]-2021 History of Past illness Narrative* Problem Noted Date Diagnosed Date Resolved Date Combined forms of age-relate d cataract of right eye 10/02/2020 05/07/2021 VTE Prophylaxis 05/15/2011 07/18/2011 Overview: The pt is on Heparin 5000 units SC BID and SCD for VTE prophylaxis. No signs or symptoms of DVT/PE. The patient is at moderate risk for VTE. Plan: - d/c home, no further prophylaxis . Discharge planning 05/15/2011 2 Overview: Patient , lives in [place], [place]. Do not anticipate any needs at time of discharge Plan: - d/c home this afternoon, plan to follow up with Dr. Warner one week Atelectasis 05/14/2011 05/19/2011 Overview: 05/18/2011 Patient noted to have Post-operative atelectasis noted on chest x-ray. Plan: - Respiratory therapy - Encourage coughing and deep breathing - Acapella - Aggressive pulmonary hygiene. - Encourage progressive ambulaton. . Other acute postoperative pain 05/14/2011 07/18/2011 Overview: Pt reports adequate pain control on current regimen consisting of lidoderm and Oxycodone. Pt c/o groggy from oxycodone. Oxycodone stoped and Tylenol #3 elixir and Motrin started. Plan: - Continue to re-assess pain control- plan to d/c today on above regimen if pain well controlled . Intravascular volume depletion 05/14/2011 05/16/2011 Iron deficiency 01/02/2011 11/14/2011 ANEMIA IRON DEF, CHR BLOOD LOSS 12/16/2007 01/02/2011 Iron deficiency anemia, unspecified 11/14/2011 Overview: Patient noted to have iron deficiency anemia prior to surgery. In 2007, he became anemic and has had hemoglobins levels as low as seven. He received IV iron for treatment. Current H/H stable at 11.3/37.6 on 05/17/2011 Plan: - pt will follow with PCP upon discharge . documented as of this encounter (statuses as of 08/26/2023) [facility]04[facility]21 History of Past illness Narrative* Problem Noted Date Diagnosed Date Resolved Date Combined forms of age-relate d cataract of right eye 10/02/2020 05/07/2021 VTE Prophylaxis 05/15/2011 07/18/2011 Overview: The pt is on Heparin 5000 units SC BID and SCD for VTE prophylaxis. No signs or symptoms of DVT/PE. The patient is at moderate risk for VTE. Plan: - d/c home, no further prophylaxis . Discharge planning 05/15/2011 2 Overview: Patient , lives in [place], [place]. Do not anticipate any needs at time of discharge Plan: - d/c home this afternoon, plan to follow up with Dr. Warner one week Atelectasis 05/14/2011 05/19/2011 Overview: 05/18/2011 Patient noted to have Post-operative atelectasis noted on chest x-ray. Plan: - Respiratory therapy - Encourage coughing and deep breathing - Acapella - Aggressive pulmonary hygiene. - Encourage progressive ambulaton. . Other acute postoperative pain 05/14/2011 07/18/2011 Overview: Pt reports adequate pain control on current regimen consisting of lidoderm and Oxycodone. Pt c/o groggy from oxycodone. Oxycodone stoped and Tylenol #3 elixir and Motrin started. Plan: - Continue to re-assess pain control- plan to d/c today on above regimen if pain well controlled . Intravascular volume depletion 05/14/2011 05/16/2011 Iron deficiency 01/02/2011 11/14/2011 ANEMIA IRON DEF, CHR BLOOD LOSS 12/16/2007 01/02/2011 Iron deficiency anemia, unspecified 11/14/2011 Overview: Patient noted to have iron deficiency anemia prior to surgery. In 2007, he became anemic and has had hemoglobins levels as low as seven. He received IV iron for treatment. Current H/H stable at 11.3/37.6 on 05/17/2011 Plan: - pt will follow with PCP upon discharge . documented as of this encounter (statuses as of 08/26/2023) [facility]04-[facility]2021 History of Past illness Narrative* Problem Noted Date Diagnosed Date Resolved Date Combined forms of age-relate d cataract of right eye 10/02/2020 05/07/2021 VTE Prophylaxis 05/15/2011 07/18/2011 Overview: The pt is on Heparin 5000 units SC BID and SCD for VTE prophylaxis. No signs or symptoms of DVT/PE. The patient is at moderate risk for VTE. Plan: - d/c home, no further prophylaxis . Discharge planning 05/15/2011 2 Overview: Patient , lives in [place], [place]. Do not anticipate any needs at time of discharge Plan: - d/c home this afternoon, plan to follow up with Dr. Warner one week Atelectasis 05/14/2011 05/19/2011 Overview: 05/18/2011 Patient noted to have Post-operative atelectasis noted on chest x-ray. Plan: - Respiratory therapy - Encourage coughing and deep breathing - Acapella - Aggressive pulmonary hygiene. - Encourage progressive ambulaton. . Other acute postoperative pain 05/14/2011 07/18/2011 Overview: Pt reports adequate pain control on current regimen consisting of lidoderm and Oxycodone. Pt c/o groggy from oxycodone. Oxycodone stoped and Tylenol #3 elixir and Motrin started. Plan: - Continue to re-assess pain control- plan to d/c today on above regimen if pain well controlled . Intravascular volume depletion 05/14/2011 05/16/2011 Iron deficiency 01/02/2011 11/14/2011 ANEMIA IRON DEF, CHR BLOOD LOSS 12/16/2007 01/02/2011 Iron deficiency anemia, unspecified 11/14/2011 Overview: Patient noted to have iron deficiency anemia prior to surgery. In 2007, he became anemic and has had hemoglobins levels as low as seven. He received IV iron for treatment. Current H/H stable at 11.3/37.6 on 05/17/2011 Plan: - pt will follow with PCP upon discharge . documented as of this encounter (statuses as of 08/27/2023) [facility] History of Past illness Narrative* Problem Noted Date Diagnosed Date Resolved Date Combined forms of age-relate d cataract of right eye 10/02/2020 05/07/2021 VTE Prophylaxis 05/15/2011 07/18/2011 Overview: The pt is on Heparin 5000 units SC BID and SCD for VTE prophylaxis. No signs or symptoms of DVT/PE. The patient is at moderate risk for VTE. Plan: - d/c home, no further prophylaxis . Discharge planning 05/15/2011 2 Overview: Patient , lives in [place], [place]. Do not anticipate any needs at time of discharge Plan: - d/c home this afternoon, plan to follow up with Dr. Warner one week Atelectasis 05/14/2011 05/19/2011 Overview: 05/18/2011 Patient noted to have Post-operative atelectasis noted on chest x-ray. Plan: - Respiratory therapy - Encourage coughing and deep breathing - Acapella - Aggressive pulmonary hygiene. - Encourage progressive ambulaton. . Other acute postoperative pain 05/14/2011 07/18/2011 Overview: Pt reports adequate pain control on current regimen consisting of lidoderm and Oxycodone. Pt c/o groggy from oxycodone. Oxycodone stoped and Tylenol #3 elixir and Motrin started. Plan: - Continue to re-assess pain control- plan to d/c today on above regimen if pain well controlled . Intravascular volume depletion 05/14/2011 05/16/2011 Iron deficiency 01/02/2011 11/14/2011 ANEMIA IRON DEF, CHR BLOOD LOSS 12/16/2007 01/02/2011 Iron deficiency anemia, unspecified 11/14/2011 Overview: Patient noted to have iron deficiency anemia prior to surgery. In 2007, he became anemic and has had hemoglobins levels as low as seven. He received IV iron for treatment. Current H/H stable at 11.3/37.6 on 05/17/2011 Plan: - pt will follow with PCP upon discharge . documented as of this encounter (statuses as of 08/28/2023) [facility] History of Past illness Narrative* Problem Noted Date Diagnosed Date Resolved Date Combined forms of age-relate d cataract of right eye 10/02/2020 05/07/2021 VTE Prophylaxis 05/15/2011 07/18/2011 Overview: The pt is on Heparin 5000 units SC BID and SCD for VTE prophylaxis. No signs or symptoms of DVT/PE. The patient is at moderate risk for VTE. Plan: - d/c home, no further prophylaxis . Discharge planning 05/15/2011 2 Overview: Patient , lives in [place], [place]. Do not anticipate any needs at time of discharge Plan: - d/c home this afternoon, plan to follow up with Dr. Warner one week Atelectasis 05/14/2011 05/19/2011 Overview: 05/18/2011 Patient noted to have Post-operative atelectasis noted on chest x-ray. Plan: - Respiratory therapy - Encourage coughing and deep breathing - Acapella - Aggressive pulmonary hygiene. - Encourage progressive ambulaton. . Other acute postoperative pain 05/14/2011 07/18/2011 Overview: Pt reports adequate pain control on current regimen consisting of lidoderm and Oxycodone. Pt c/o groggy from oxycodone. Oxycodone stoped and Tylenol #3 elixir and Motrin started. Plan: - Continue to re-assess pain control- plan to d/c today on above regimen if pain well controlled . Intravascular volume depletion 05/14/2011 05/16/2011 Iron deficiency 01/02/2011 11/14/2011 ANEMIA IRON DEF, CHR BLOOD LOSS 12/16/2007 01/02/2011 Iron deficiency anemia, unspecified 11/14/2011 Overview: Patient noted to have iron deficiency anemia prior to surgery. In 2007, he became anemic and has had hemoglobins levels as low as seven. He received IV iron for treatment. Current H/H stable at 11.3/37.6 on 05/17/2011 Plan: - pt will follow with PCP upon discharge . documented as of this encounter (statuses as of 08/29/2023) [facility] History of Past illness Narrative* Problem Noted Date Diagnosed Date Resolved Date Combined forms of age-relate d cataract of right eye 10/02/2020 05/07/2021 VTE Prophylaxis 05/15/2011 07/18/2011 Overview: The pt is on Heparin 5000 units SC BID and SCD for VTE prophylaxis. No signs or symptoms of DVT/PE. The patient is at moderate risk for VTE. Plan: - d/c home, no further prophylaxis . Discharge planning 05/15/2011 2 Overview: Patient , lives in [place], [place]. Do not anticipate any needs at time of discharge Plan: - d/c home this afternoon, plan to follow up with Dr. Warner one week Atelectasis 05/14/2011 05/19/2011 Overview: 05/18/2011 Patient noted to have Post-operative atelectasis noted on chest x-ray. Plan: - Respiratory therapy - Encourage coughing and deep breathing - Acapella - Aggressive pulmonary hygiene. - Encourage progressive ambulaton. . Other acute postoperative pain 05/14/2011 07/18/2011 Overview: Pt reports adequate pain control on current regimen consisting of lidoderm and Oxycodone. Pt c/o groggy from oxycodone. Oxycodone stoped and Tylenol #3 elixir and Motrin started. Plan: - Continue to re-assess pain control- plan to d/c today on above regimen if pain well controlled . Intravascular volume depletion 05/14/2011 05/16/2011 Iron deficiency 01/02/2011 11/14/2011 ANEMIA IRON DEF, CHR BLOOD LOSS 12/16/2007 01/02/2011 Iron deficiency anemia, unspecified 11/14/2011 Overview: Patient noted to have iron deficiency anemia prior to surgery. In 2007, he became anemic and has had hemoglobins levels as low as seven. He received IV iron for treatment. Current H/H stable at 11.3/37.6 on 05/17/2011 Plan: - pt will follow with PCP upon discharge . documented as of this encounter (statuses as of 09/09/2023) [facility]04-26-2021 History of Past illness Narrative* Problem Noted Date Diagnosed Date Resolved Date Combined forms of age-relate d cataract of right eye 10/02/2020 05/07/2021 VTE Prophylaxis 05/15/2011 07/18/2011 Overview: The pt is on Heparin 5000 units SC BID and SCD for VTE prophylaxis. No signs or symptoms of DVT/PE. The patient is at moderate risk for VTE. Plan: - d/c home, no further prophylaxis . Discharge planning 05/15/2011 2 Overview: Patient , lives in [place], [place]. Do not anticipate any needs at time of discharge Plan: - d/c home this afternoon, plan to follow up with Dr. Warner one week Atelectasis 05/14/2011 05/19/2011 Overview: 05/18/2011 Patient noted to have Post-operative atelectasis noted on chest x-ray. Plan: - Respiratory therapy - Encourage coughing and deep breathing - Acapella - Aggressive pulmonary hygiene. - Encourage progressive ambulaton. . Other acute postoperative pain 05/14/2011 07/18/2011 Overview: Pt reports adequate pain control on current regimen consisting of lidoderm and Oxycodone. Pt c/o groggy from oxycodone. Oxycodone stoped and Tylenol #3 elixir and Motrin started. Plan: - Continue to re-assess pain control- plan to d/c today on above regimen if pain well controlled . Intravascular volume depletion 05/14/2011 05/16/2011 Iron deficiency 01/02/2011 11/14/2011 ANEMIA IRON DEF, CHR BLOOD LOSS 12/16/2007 01/02/2011 Iron deficiency anemia, unspecified 11/14/2011 Overview: Patient noted to have iron deficiency anemia prior to surgery. In 2007, he became anemic and has had hemoglobins levels as low as seven. He received IV iron for treatment. Current H/H stable at 11.3/37.6 on 05/17/2011 Plan: - pt will follow with PCP upon discharge . documented as of this encounter (statuses as of 09/09/2023) [facility]04-26-2021 History of Past illness Narrative* Problem Noted Date Diagnosed Date Resolved Date Combined forms of age-relate d cataract of right eye 10/02/2020 05/07/2021 VTE Prophylaxis 05/15/2011 07/18/2011 Overview: The pt is on Heparin 5000 units SC BID and SCD for VTE prophylaxis. No signs or symptoms of DVT/PE. The patient is at moderate risk for VTE. Plan: - d/c home, no further prophylaxis . Discharge planning 05/15/2011 2 Overview: Patient , lives in [place], [place]. Do not anticipate any needs at time of discharge Plan: - d/c home this afternoon, plan to follow up with Dr. Warner one week Atelectasis 05/14/2011 05/19/2011 Overview: 05/18/2011 Patient noted to have Post-operative atelectasis noted on chest x-ray. Plan: - Respiratory therapy - Encourage coughing and deep breathing - Acapella - Aggressive pulmonary hygiene. - Encourage progressive ambulaton. . Other acute postoperative pain 05/14/2011 07/18/2011 Overview: Pt reports adequate pain control on current regimen consisting of lidoderm and Oxycodone. Pt c/o groggy from oxycodone. Oxycodone stoped and Tylenol #3 elixir and Motrin started. Plan: - Continue to re-assess pain control- plan to d/c today on above regimen if pain well controlled . Intravascular volume depletion 05/14/2011 05/16/2011 Iron deficiency 01/02/2011 11/14/2011 ANEMIA IRON DEF, CHR BLOOD LOSS 12/16/2007 01/02/2011 Iron deficiency anemia, unspecified 11/14/2011 Overview: Patient noted to have iron deficiency anemia prior to surgery. In 2007, he became anemic and has had hemoglobins levels as low as seven. He received IV iron for treatment. Current H/H stable at 11.3/37.6 on 05/17/2011 Plan: - pt will follow with PCP upon discharge . documented as of this encounter (statuses as of 09/12/2023) [facility]04-26-2021 History of Past illness Narrative* Problem Noted Date Diagnosed Date Resolved Date Combined forms of age-relate d cataract of right eye 10/02/2020 05/07/2021 VTE Prophylaxis 05/15/2011 07/18/2011 Overview: The pt is on Heparin 5000 units SC BID and SCD for VTE prophylaxis. No signs or symptoms of DVT/PE. The patient is at moderate risk for VTE. Plan: - d/c home, no further prophylaxis . Discharge planning 05/15/2011 2 Overview: Patient , lives in [place], [place]. Do not anticipate any needs at time of discharge Plan: - d/c home this afternoon, plan to follow up with Dr. Warner one week Atelectasis 05/14/2011 05/19/2011 Overview: 05/18/2011 Patient noted to have Post-operative atelectasis noted on chest x-ray. Plan: - Respiratory therapy - Encourage coughing and deep breathing - Acapella - Aggressive pulmonary hygiene. - Encourage progressive ambulaton. . Other acute postoperative pain 05/14/2011 07/18/2011 Overview: Pt reports adequate pain control on current regimen consisting of lidoderm and Oxycodone. Pt c/o groggy from oxycodone. Oxycodone stoped and Tylenol #3 elixir and Motrin started. Plan: - Continue to re-assess pain control- plan to d/c today on above regimen if pain well controlled . Intravascular volume depletion 05/14/2011 05/16/2011 Iron deficiency 01/02/2011 11/14/2011 ANEMIA IRON DEF, CHR BLOOD LOSS 12/16/2007 01/02/2011 Iron deficiency anemia, unspecified 11/14/2011 Overview: Patient noted to have iron deficiency anemia prior to surgery. In 2007, he became anemic and has had hemoglobins levels as low as seven. He received IV iron for treatment. Current H/H stable at 11.3/37.6 on 05/17/2011 Plan: - pt will follow with PCP upon discharge . documented as of this encounter (statuses as of 09/15/2023) [facility]04-26-2021 History of Past illness Narrative* Problem Noted Date Diagnosed Date Resolved Date Combined forms of age-relate d cataract of right eye 10/02/2020 05/07/2021 VTE Prophylaxis 05/15/2011 07/18/2011 Overview: The pt is on Heparin 5000 units SC BID and SCD for VTE prophylaxis. No signs or symptoms of DVT/PE. The patient is at moderate risk for VTE. Plan: - d/c home, no further prophylaxis . Discharge planning 05/15/2011 2 Overview: Patient , lives in [place], [place]. Do not anticipate any needs at time of discharge Plan: - d/c home this afternoon, plan to follow up with Dr. Warner one week Atelectasis 05/14/2011 05/19/2011 Overview: 05/18/2011 Patient noted to have Post-operative atelectasis noted on chest x-ray. Plan: - Respiratory therapy - Encourage coughing and deep breathing - Acapella - Aggressive pulmonary hygiene. - Encourage progressive ambulaton. . Other acute postoperative pain 05/14/2011 07/18/2011 Overview: Pt reports adequate pain control on current regimen consisting of lidoderm and Oxycodone. Pt c/o groggy from oxycodone. Oxycodone stoped and Tylenol #3 elixir and Motrin started. Plan: - Continue to re-assess pain control- plan to d/c today on above regimen if pain well controlled . Intravascular volume depletion 05/14/2011 05/16/2011 Iron deficiency 01/02/2011 11/14/2011 ANEMIA IRON DEF, CHR BLOOD LOSS 12/16/2007 01/02/2011 Iron deficiency anemia, unspecified 11/14/2011 Overview: Patient noted to have iron deficiency anemia prior to surgery. In 2007, he became anemic and has had hemoglobins levels as low as seven. He received IV iron for treatment. Current H/H stable at 11.3/37.6 on 05/17/2011 Plan: - pt will follow with PCP upon discharge . documented as of this encounter (statuses as of 09/15/2023) [facility]04-26-2021 History of Past illness Narrative* Problem Noted Date Diagnosed Date Resolved Date Combined forms of age-relate d cataract of right eye 10/02/2020 05/07/2021 VTE Prophylaxis 05/15/2011 07/18/2011 Overview: The pt is on Heparin 5000 units SC BID and SCD for VTE prophylaxis. No signs or symptoms of DVT/PE. The patient is at moderate risk for VTE. Plan: - d/c home, no further prophylaxis . Discharge planning 05/15/2011 2 Overview: Patient , lives in [place], [place]. Do not anticipate any needs at time of discharge Plan: - d/c home this afternoon, plan to follow up with Dr. Warner one week Atelectasis 05/14/2011 05/19/2011 Overview: 05/18/2011 Patient noted to have Post-operative atelectasis noted on chest x-ray. Plan: - Respiratory therapy - Encourage coughing and deep breathing - Acapella - Aggressive pulmonary hygiene. - Encourage progressive ambulaton. . Other acute postoperative pain 05/14/2011 07/18/2011 Overview: Pt reports adequate pain control on current regimen consisting of lidoderm and Oxycodone. Pt c/o groggy from oxycodone. Oxycodone stoped and Tylenol #3 elixir and Motrin started. Plan: - Continue to re-assess pain control- plan to d/c today on above regimen if pain well controlled . Intravascular volume depletion 05/14/2011 05/16/2011 Iron deficiency 01/02/2011 11/14/2011 ANEMIA IRON DEF, CHR BLOOD LOSS 12/16/2007 01/02/2011 Iron deficiency anemia, unspecified 11/14/2011 Overview: Patient noted to have iron deficiency anemia prior to surgery. In 2007, he became anemic and has had hemoglobins levels as low as seven. He received IV iron for treatment. Current H/H stable at 11.3/37.6 on 05/17/2011 Plan: - pt will follow with PCP upon discharge . documented as of this encounter (statuses as of 09/23/2023) [facility]04-26-2021 History of Past illness Narrative* Problem Noted Date Diagnosed Date Resolved Date Combined forms of age-relate d cataract of right eye 10/02/2020 05/07/2021 VTE Prophylaxis 05/15/2011 07/18/2011 Overview: The pt is on Heparin 5000 units SC BID and SCD for VTE prophylaxis. No signs or symptoms of DVT/PE. The patient is at moderate risk for VTE. Plan: - d/c home, no further prophylaxis . Discharge planning 05/15/2011 2 Overview: Patient , lives in [place], [place]. Do not anticipate any needs at time of discharge Plan: - d/c home this afternoon, plan to follow up with Dr. Warner one week Atelectasis 05/14/2011 05/19/2011 Overview: 05/18/2011 Patient noted to have Post-operative atelectasis noted on chest x-ray. Plan: - Respiratory therapy - Encourage coughing and deep breathing - Acapella - Aggressive pulmonary hygiene. - Encourage progressive ambulaton. . Other acute postoperative pain 05/14/2011 07/18/2011 Overview: Pt reports adequate pain control on current regimen consisting of lidoderm and Oxycodone. Pt c/o groggy from oxycodone. Oxycodone stoped and Tylenol #3 elixir and Motrin started. Plan: - Continue to re-assess pain control- plan to d/c today on above regimen if pain well controlled . Intravascular volume depletion 05/14/2011 05/16/2011 Iron deficiency 01/02/2011 11/14/2011 ANEMIA IRON DEF, CHR BLOOD LOSS 12/16/2007 01/02/2011 Iron deficiency anemia, unspecified 11/14/2011 Overview: Patient noted to have iron deficiency anemia prior to surgery. In 2007, he became anemic and has had hemoglobins levels as low as seven. He received IV iron for treatment. Current H/H stable at 11.3/37.6 on 05/17/2011 Plan: - pt will follow with PCP upon discharge . documented as of this encounter (statuses as of 09/23/2023) [facility]04-26-2021 History of Past illness Narrative* Problem Noted Date Diagnosed Date Resolved Date Combined forms of age-relate d cataract of right eye 10/02/2020 05/07/2021 VTE Prophylaxis 05/15/2011 07/18/2011 Overview: The pt is on Heparin 5000 units SC BID and SCD for VTE prophylaxis. No signs or symptoms of DVT/PE. The patient is at moderate risk for VTE. Plan: - d/c home, no further prophylaxis . Discharge planning 05/15/2011 2 Overview: Patient , lives in [place], [place]. Do not anticipate any needs at time of discharge Plan: - d/c home this afternoon, plan to follow up with Dr. Warner one week Atelectasis 05/14/2011 05/19/2011 Overview: 05/18/2011 Patient noted to have Post-operative atelectasis noted on chest x-ray. Plan: - Respiratory therapy - Encourage coughing and deep breathing - Acapella - Aggressive pulmonary hygiene. - Encourage progressive ambulaton. . Other acute postoperative pain 05/14/2011 07/18/2011 Overview: Pt reports adequate pain control on current regimen consisting of lidoderm and Oxycodone. Pt c/o groggy from oxycodone. Oxycodone stoped and Tylenol #3 elixir and Motrin started. Plan: - Continue to re-assess pain control- plan to d/c today on above regimen if pain well controlled . Intravascular volume depletion 05/14/2011 05/16/2011 Iron deficiency 01/02/2011 11/14/2011 ANEMIA IRON DEF, CHR BLOOD LOSS 12/16/2007 01/02/2011 Iron deficiency anemia, unspecified 11/14/2011 Overview: Patient noted to have iron deficiency anemia prior to surgery. In 2007, he became anemic and has had hemoglobins levels as low as seven. He received IV iron for treatment. Current H/H stable at 11.3/37.6 on 05/17/2011 Plan: - pt will follow with PCP upon discharge . documented as of this encounter (statuses as of 09/24/2023) [facility]04-[facility]21 History of Past illness Narrative* Problem Noted Date Diagnosed Date Resolved Date Combined forms of age-relate d cataract of right eye 10/02/2020 05/07/2021 VTE Prophylaxis 05/15/2011 07/18/2011 Overview: The pt is on Heparin 5000 units SC BID and SCD for VTE prophylaxis. No signs or symptoms of DVT/PE. The patient is at moderate risk for VTE. Plan: - d/c home, no further prophylaxis . Discharge planning 05/15/2011 2 Overview: Patient , lives in [place], [place]. Do not anticipate any needs at time of discharge Plan: - d/c home this afternoon, plan to follow up with Dr. Warner one week Atelectasis 05/14/2011 05/19/2011 Overview: 05/18/2011 Patient noted to have Post-operative atelectasis noted on chest x-ray. Plan: - Respiratory therapy - Encourage coughing and deep breathing - Acapella - Aggressive pulmonary hygiene. - Encourage progressive ambulaton. . Other acute postoperative pain 05/14/2011 07/18/2011 Overview: Pt reports adequate pain control on current regimen consisting of lidoderm and Oxycodone. Pt c/o groggy from oxycodone. Oxycodone stoped and Tylenol #3 elixir and Motrin started. Plan: - Continue to re-assess pain control- plan to d/c today on above regimen if pain well controlled . Intravascular volume depletion 05/14/2011 05/16/2011 Iron deficiency 01/02/2011 11/14/2011 ANEMIA IRON DEF, CHR BLOOD LOSS 12/16/2007 01/02/2011 Iron deficiency anemia, unspecified 11/14/2011 Overview: Patient noted to have iron deficiency anemia prior to surgery. In 2007, he became anemic and has had hemoglobins levels as low as seven. He received IV iron for treatment. Current H/H stable at 11.3/37.6 on 05/17/2011 Plan: - pt will follow with PCP upon discharge . documented as of this encounter (statuses as of 09/24/2023) [facility]04-[facility]-2021 History of Past illness Narrative* Problem Noted Date Diagnosed Date Resolved Date Combined forms of age-relate d cataract of right eye 10/02/2020 05/07/2021 VTE Prophylaxis 05/15/2011 07/18/2011 Overview: The pt is on Heparin 5000 units SC BID and SCD for VTE prophylaxis. No signs or symptoms of DVT/PE. The patient is at moderate risk for VTE. Plan: - d/c home, no further prophylaxis . Discharge planning 05/15/2011 2 Overview: Patient , lives in [place], [place]. Do not anticipate any needs at time of discharge Plan: - d/c home this afternoon, plan to follow up with Dr. Warner one week Atelectasis 05/14/2011 05/19/2011 Overview: 05/18/2011 Patient noted to have Post-operative atelectasis noted on chest x-ray. Plan: - Respiratory therapy - Encourage coughing and deep breathing - Acapella - Aggressive pulmonary hygiene. - Encourage progressive ambulaton. . Other acute postoperative pain 05/14/2011 07/18/2011 Overview: Pt reports adequate pain control on current regimen consisting of lidoderm and Oxycodone. Pt c/o groggy from oxycodone. Oxycodone stoped and Tylenol #3 elixir and Motrin started. Plan: - Continue to re-assess pain control- plan to d/c today on above regimen if pain well controlled . Intravascular volume depletion 05/14/2011 05/16/2011 Iron deficiency 01/02/2011 11/14/2011 ANEMIA IRON DEF, CHR BLOOD LOSS 12/16/2007 01/02/2011 Iron deficiency anemia, unspecified 11/14/2011 Overview: Patient noted to have iron deficiency anemia prior to surgery. In 2007, he became anemic and has had hemoglobins levels as low as seven. He received IV iron for treatment. Current H/H stable at 11.3/37.6 on 05/17/2011 Plan: - pt will follow with PCP upon discharge . documented as of this encounter (statuses as of 09/26/2023) [facility]04[facility] History of Past illness Narrative* Problem Noted Date Diagnosed Date Resolved Date Combined forms of age-relate d cataract of right eye 10/02/2020 05/07/2021 VTE Prophylaxis 05/15/2011 07/18/2011 Overview: The pt is on Heparin 5000 units SC BID and SCD for VTE prophylaxis. No signs or symptoms of DVT/PE. The patient is at moderate risk for VTE. Plan: - d/c home, no further prophylaxis . Discharge planning 05/15/2011 2 Overview: Patient , lives in [place], [place]. Do not anticipate any needs at time of discharge Plan: - d/c home this afternoon, plan to follow up with Dr. Warner one week Atelectasis 05/14/2011 05/19/2011 Overview: 05/18/2011 Patient noted to have Post-operative atelectasis noted on chest x-ray. Plan: - Respiratory therapy - Encourage coughing and deep breathing - Acapella - Aggressive pulmonary hygiene. - Encourage progressive ambulaton. . Other acute postoperative pain 05/14/2011 07/18/2011 Overview: Pt reports adequate pain control on current regimen consisting of lidoderm and Oxycodone. Pt c/o groggy from oxycodone. Oxycodone stoped and Tylenol #3 elixir and Motrin started. Plan: - Continue to re-assess pain control- plan to d/c today on above regimen if pain well controlled . Intravascular volume depletion 05/14/2011 05/16/2011 Iron deficiency 01/02/2011 11/14/2011 ANEMIA IRON DEF, CHR BLOOD LOSS 12/16/2007 01/02/2011 Iron deficiency anemia, unspecified 11/14/2011 Overview: Patient noted to have iron deficiency anemia prior to surgery. In 2007, he became anemic and has had hemoglobins levels as low as seven. He received IV iron for treatment. Current H/H stable at 11.3/37.6 on 05/17/2011 Plan: - pt will follow with PCP upon discharge . documented as of this encounter (statuses as of 09/26/2023) [facility] ([facility])- Primary Malignant neoplasm of pancreas, part unspecified 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) Other specified disorders of biliary tract [facility] ne[facility] of pancreatic duct (HCC) Malignant neoplasm of pancreatic duct Abnormal findings on diagnostic imaging of liver and biliary tract [facility] Obstructive jaundice Other specified disorders of biliary tract [facility] 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)- Primary Malignant neoplasm of head of pancreas Pancreatic adenocarcinoma (HCC) Malignant neoplasm of pancreas, part unspecified Biliary obstruction Obstruction of bile duct Pancreatic adenocarcinoma (HCC) Malignant neoplasm of pancreas, part unspecified 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) Malignant neoplasm of head of pancreas [facility] Encounter for education- Primary Counseling NOS Pancreatic adenocarcinoma (HCC) Malignant neoplasm of pancreas, part unspecified 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) Malignant neoplasm of head of pancreas [facility] 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)- Primary Malignant neoplasm of head of pancreas Pancreatic adenocarcinoma (HCC) Malignant neoplasm of pancreas, part unspecified [facility] Diagnosis 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)- Primary Malignant neoplasm of head of pancreas [facility] Diagnosis Pancreatic adenocarcinoma (HCC)- Primary Malignant neoplasm of pancreas, part unspecified 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) Malignant neoplasm of head of pancreas [facility] Diagnosis Pancreatic adenocarcinoma (HCC) Malignant neoplasm of pancreas, part unspecified [facility] Diagnosis 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)- Primary Malignant neoplasm of head of pancreas [facility] Diagnosis 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)- Primary Malignant neoplasm of head of pancreas Essential hypertension Unspecified essential hypertension [facility] Diagnosis 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)- Primary Malignant neoplasm of head of pancreas [facility] Diagnosis 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)- Primary Malignant neoplasm of head of pancreas Pancreatic adenocarcinoma (HCC) Malignant neoplasm of pancreas, part unspecified [facility] Diagnosis 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)- Primary Malignant neoplasm of head of pancreas Primary hypertension Unspecified essential hypertension [facility] Diagnosis 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)- Primary Malignant neoplasm of head of pancreas [facility] Diagnosis 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)- Primary Malignant neoplasm of head of pancreas [facility] Diagnosis 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) Malignant neoplasm of head of pancreas Pancreatic adenocarcinoma (HCC) Malignant neoplasm of pancreas, part unspecified [facility] Diagnosis 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)- Primary Malignant neoplasm of head of pancreas Diarrhea, unspecified type Primary hypertension Unspecified essential hypertension [facility] Diagnosis 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)- Primary Malignant neoplasm of head of pancreas [facility] Diagnosis 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)- Primary Malignant neoplasm of head of pancreas [facility] Diagnosis 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) Malignant neoplasm of head of pancreas Pancreatic adenocarcinoma (HCC) Malignant neoplasm of pancreas, part unspecified [facility] Diagnosis 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)- Primary Malignant neoplasm of head of pancreas Diarrhea, unspecified type Primary hypertension Unspecified essential hypertension [facility] Diagnosis 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)- Primary Malignant neoplasm of head of pancreas [facility] Diagnosis 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)- Primary Malignant neoplasm of head of pancreas [facility] Diagnosis 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) Malignant neoplasm of head of pancreas [facility] Diagnosis Pancreatic malabsorption- Primary 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) Malignant neoplasm of head of pancreas [facility] 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) Malignant neoplasm of head of pancreas Pancreatic adenocarcinoma (HCC) Malignant neoplasm of pancreas, part unspecified [facility] 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)- Primary Malignant neoplasm of head of [facility] 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)- Primary Malignant neoplasm of head of pancreas [facility] Diagnosis 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)- Primary Malignant neoplasm of head of pancreas Pancreatic adenocarcinoma (HCC) Malignant neoplasm of pancreas, part unspecified [facility] Diagnosis 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)- Primary Malignant neoplasm of head of pancreas [facility] Diagnosis 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) Malignant neoplasm of head of pancreas Pancreatic adenocarcinoma (HCC) Malignant neoplasm of pancreas, part unspecified [facility] Diagnosis 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)- Primary Malignant neoplasm of head of pancreas [facility] Diagnosis 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)- Primary Malignant neoplasm of head of pancreas [facility] Diagnosis 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) Malignant neoplasm of head of pancreas Pancreatic malabsorption [facility] Diagnosis Primary hypertension- Primary Unspecified essential hypertension Essential hypertension Unspecified essential hypertension Pancreatic adenocarcinoma (HCC) Malignant neoplasm of pancreas, part unspecified Biliary obstruction Obstruction of bile duct Pancreatic malabsorption Pre-diabetes Other abnormal glucose [facility] Diagnosis 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)- Primary Malignant neoplasm of head of pancreas Pancreatic adenocarcinoma (HCC) Malignant neoplasm of pancreas, part unspecified Primary hypertension Unspecified essential hypertension Biliary obstruction Obstruction of bile duct Pancreatic malabsorption Pre-diabetes Other abnormal glucose [facility] Diagnosis 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)- Primary Malignant neoplasm of head of pancreas [facility] Diagnosis Pancreatic adenocarcinoma (HCC)- Primary Malignant neoplasm of pancreas, part unspecified [facility] Diagnosis 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)- Primary Malignant neoplasm of head of pancreas Pancreatic adenocarcinoma (HCC) Malignant neoplasm of pancreas, part unspecified Sepsis with acute renal failure without septic shock, due to unspecified organism, unspecified acute renal failure type (HCC) [facility] Diagnosis 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)- Primary Malignant neoplasm of head of pancreas [facility] Diagnosis 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) Malignant neoplasm of head of pancreas [facility] Diagnosis 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)- Primary Malignant neoplasm of head of pancreas [facility] Diagnosis 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) Malignant neoplasm of head of pancreas 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)- Primary Malignant neoplasm of head of pancreas [facility] Diagnosis 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)- Primary Malignant neoplasm of head of pancreas [facility] Diagnosis 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)- Primary Malignant neoplasm of head of pancreas [facility]* Diagnosis 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) Malignant neoplasm of head of pancreas [facility] Diagnosis 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) Malignant neoplasm of head of pancreas Pancreatic adenocarcinoma (HCC) Malignant neoplasm of pancreas, part unspecified Sepsis with acute renal failure without septic shock, due to unspecified organism, unspecified acute renal failure type (HCC) [facility] Diagnosis 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)- Primary Malignant neoplasm of head of pancreas Biliary obstruction Obstruction of bile duct [facility] Diagnosis 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)- Primary Malignant neoplasm of head of pancreas [facility]* Diagnosis 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)- Primary Malignant neoplasm of head of pancreas [facility]* Diagnosis 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)- Primary Malignant neoplasm of head of pancreas Pancreatic adenocarcinoma (HCC) Malignant neoplasm of pancreas, part unspecified [facility] Diagnosis 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) Malignant neoplasm of head of pancreas Pancreatic adenocarcinoma (HCC) Malignant neoplasm of pancreas, part unspecified Sepsis with acute renal failure without septic shock, due to unspecified organism, unspecified acute renal failure type (HCC) [facility] Diagnosis 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)- Primary Malignant neoplasm of head of pancreas Abnormal CT of liver Nonspecific (abnormal) findings on radiological and other examination of biliary tract Anemia, unspecified type [facility] Diagnosis 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)- Primary Malignant neoplasm of head of pancreas Anemia, unspecified type [facility]* Diagnosis 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)- Primary Malignant neoplasm of head of pancreas [facility]* Diagnosis 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) Malignant neoplasm of head of pancreas Pancreatic adenocarcinoma (HCC) Malignant neoplasm of pancreas, part unspecified Sepsis with acute renal failure without septic shock, due to unspecified organism, unspecified acute renal failure type (HCC) [facility] Diagnosis 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)- Primary Malignant neoplasm of head of pancreas [facility]* Diagnosis 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)- Primary Malignant neoplasm of head of pancreas [facility]* Diagnosis 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)- Primary Malignant neoplasm of head of pancreas [facility]* Diagnosis 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)- Primary Malignant neoplasm of head of pancreas [facility]* Diagnosis 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) Malignant neoplasm of head of pancreas [facility] Diagnosis 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) Malignant neoplasm of head of pancreas Abnormal CT of liver Nonspecific (abnormal) findings on radiological and other examination of biliary tract [facility] Diagnosis 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) Malignant neoplasm of head of pancreas [facility] Diagnosis Hyperlipidemia associated with type 2 diabetes mellitus (HCC) (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) [facility] Diagnosis 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) Malignant neoplasm of head of pancreas Pancreatic malabsorption Abnormal CT of liver Nonspecific (abnormal) findings on radiological and other examination of biliary tract [facility] Diagnosis 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)- Primary Malignant neoplasm of head of pancreas Pancreatic adenocarcinoma (HCC) Malignant neoplasm of pancreas, part unspecified Diabetes mellitus with multiple complications (HCC) Hyperlipidemia associated with type 2 diabetes mellitus (HCC) (HCC) [facility] Diagnosis 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)- Primary Malignant neoplasm of head of pancreas [facility]* Diagnosis 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)- Primary Malignant neoplasm of head of pancreas [facility]* Diagnosis 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) Malignant neoplasm of head of pancreas Pancreatic malabsorption [facility]* Diagnosis 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)- Primary Malignant neoplasm of head of pancreas Pancreatic adenocarcinoma (HCC) Malignant neoplasm of pancreas, part unspecified [facility] Diagnosis 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)- Primary Malignant neoplasm of head of pancreas [facility] Diagnosis 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)- Primary Malignant neoplasm of head of pancreas [facility] Diagnosis 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)- Primary Malignant neoplasm of head of pancreas documented in this encounter [facility] note* Diagnosis 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) Malignant neoplasm of head of pancreas Pancreatic adenocarcinoma (HCC) Malignant neoplasm of pancreas, part unspecified documented in this encounter [facility] note* Diagnosis 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)- Primary Malignant neoplasm of head of pancreas documented in this encounter [facility] note* Diagnosis 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)- Primary Malignant neoplasm of head of pancreas documented in this encounter [facility] note* Diagnosis 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)- Primary Malignant neoplasm of head of pancreas documented in this encounter [facility] for referral (narrative)* Outpatient Procedure (Routine) - Pending Review Specialty Diagnoses / Procedures Referred By Yesenia gutierrez Referred To Contact [facility] Diagnoses Obstructive jaundice Procedures ERCP ERCP BILIARY/PANC DUCT STENT EXCHANGE W/DIL&WIRE Vickie James MD [address] [place] [address] [facility] Disease [place] [id number] [place] [phone] Referral ID Status Reason Start Date Expiration Date Visits Requested Visits Authorized [id number] Pending Review Auto-Generat ed Referral 08/06/2023 08/06/2024 1 1 * Outpatient Procedure (Routine) - Closed Specialty Diagnoses / Procedures Referred By Yesenia gutierrez Referred To Contact [facility] Diagnoses Obstructive jaundice Procedures ERCP ERCP BILIARY/PANC DUCT STENT EXCHANGE W/DIL&WIRE Tobi Nascimento MD [facility]. [address] [place] [address] [place] [address] [place] [place] [phone] Referral ID Status Reason Start Date Expiration Date V isits Requested Visits Authorized [id number] Closed Auto-Generate d Referral 08/04/2023 08/04/2024 [address] [facility] for referral (narrative)* Outpatient Procedure (Routine) - Pending Review Specialty Diagnoses / Procedures Referred By Contac t Referred To Contact [facility] Diagnoses Pancreatic adenocarcinoma (HCC) Procedures ERCP ERCP BILIARY/PANC DUCT STENT EXCHANGE W/DIL&WIRE Tobi Nascimento MD [address] [place] [address] [place] [address] [place] [address] Referral ID Status Reason Start Date Expiration Date Visits Requested Visits Authorized [id number] Pending Review Auto-Generat ed Referral 11/18/2023 11/17/2024 [address] [facility] for referral (narrative)* Outpatient Procedure (Routine) - Closed Specialty Diagnoses / Procedures Referred By Contac t Referred To Contact [facility] Diagnoses Pancreatic adenocarcinoma (HCC) Procedures ERCP ERCP BILIARY/PANC DUCT STENT EXCHANGE W/DIL&WIRE Tobi Nascimento MD [address] Desk [address] [address] [place] [address] [place] [address] Referral ID Status Reason Start Date Expiration Date V isits Requested Visits Authorized [id number] Closed Auto-Generate d Referral 11/18/2023 11/17/2024 1 1 [facility] for visit Narrative* Outpatient Procedure (Routine) - Closed Specialty Diagnoses / Procedures Referred By Contac t Referred To Contact [facility] Diagnoses Obstructive jaundice Procedures EGD - THERAPEUTIC, EUS, OR TUBE INTERVENTIONS EGD INTRMURAL US NEEDLE ASPIRATE/BIOPSY ESOPHAGS Tobi Nascimento MD [address] Desk [address] [address] [facility] [address] [place] [address] Referral ID Status Reason Start Date Expiration Date V isits Requested Visits Authorized [id number] Closed Auto-Generate d Referral 08/04/2023 08/04/2024 1 1 [facility] Procedure (Routine) - Closed Specialty Diagnoses / Procedures Referred By Yesenia gutierrez Referred To Contact [facility] Diagnoses Pancreatic adenocarcinoma (HCC) Procedures ERCP ERCP BILIARY/PANC DUCT STENT EXCHANGE W/DIL&WIRE Tobi Nascimento MD [address] [facility] [place] [address] [facility] Disease [place] [id number] [place] [address] Referral ID Status Reason Start Date Expiration Date V isits Requested Visits Authorized [id number] Closed Auto-Generate d Referral 11/18/2023 11/17/2024 1 1 [facility] Summary Purpose Family History No Family History Records FoundNo Family History Records FoundNo Family History Records FoundNo Family History Records FoundNo Family History Records FoundNo Family History Records Found Advance Directives Date Activated Date Inactivated Comments 11/27/2023 9:58 PM 12/12/2023 3:14 PM Question Answer Comments Full Code Order Discussed With: PatientSurrogate Decision Maker Surrogate Decision Maker Name: Yary Lara, Date Activated Date Inactivated Comments 11/27/2023 9:58 PM Date Activated Date Inactivated Comments 11/27/2023 9:58 PM 12/12/2023 3:14 PM Question Answer Comments Full Code Order Discussed With: PatientSurrogate Decision Maker Surrogate Decision Maker Name: Yary Lara, Reason for Referral Specialty Diagnoses / Procedures Referred By Yesenia gutierrez Referred To Contact Diagnoses Pancreatic adenocarcinoma (HCC) Procedures CONSULT TO MEDICAL GENETICS - CANCER MEDICAL GENETICS COUNSELING EACH 30 MINUTES Tobi Nascimento MD [address] Desk [address] [address] [facility] Medicine [place] [phone] [place] [address] Referral ID Status Reason Start Date Expiration Date Visits Requested Visits Authorized [id number] Pending Review PCP Requested Referral Auto-Generate d Referral 08/05/2023 08/04/2024 1 1 Specialty Diagnoses / Procedures Referred By Contac t Referred To Contact Oncology Diagnoses Pancreatic adenocarcinoma (HCC) Procedures CONSULT TO ONCOLOGY OFFICE/OUTPATIENT [facility] 60 MINUTES Tobi Nascimento MD [address] [place] [phone] Referral ID Status Reason Start Date Expiration Date Visits Requested Visits Authorized [id number] Authorized PCP Requested Referral 08/05/2023 08/04/2024 1 1 Specialty Diagnoses / Procedures Referred By Contac t Referred To Contact CT IMAGING Diagnoses Abnormal findings on diagnostic imaging of liver and biliary tract Procedures CT PANCREAS/PELVIS W IVCON CT ABD & PELVIS W/CONTRAST Tobi Nascimento MD [address] [place] [address] [address] [facility] [place] [address] Referral ID Status Reason Start Date Expiration Date V isits Requested Visits Authorized [id number] Closed Auto-Generate d Referral 08/04/2023 09/02/2024 1 1 Specialty Diagnoses / Procedures Referred By Contac t Referred To Contact CT IMAGING Diagnoses 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) Procedures CT CHEST W IVCON DIAGNOSTIC COMPUTED TOMOGRAPHY THORAX W/CONTRAST Phong Aj A, DO [address] [place] [address] Ct Imaging [id number] Referral ID Status Reason Start Date Expiration Date Visits Requested Visits Authorized [id number] Pending Review Auto-Generat ed Referral 09/22/2023 10/21/2024 1 1 Specialty Diagnoses / Procedures Referred By Contac t Referred To Contact CT IMAGING Diagnoses 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) Procedures CT ABD/PEL W IVCON CT ABD & PELVIS W/CONTRAST Madai Phong A, DO [address] [place] [address] Ct Imaging [facility] Referral ID Status Reason Start Date Expiration Date Visits Requested Visits Authorized [id number] Pending Review Auto-Generat ed Referral 09/22/2023 10/21/2024 1 1 Specialty Diagnoses / Procedures Referred By Contac t Referred To Contact Radiation Oncology Diagnoses 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) Procedures RAD/ONC CONSULT OFFICE/OUTPATIENT [facility] 60 MINUTES Tobi Nascimento MD [address] [place] [phone] Referral ID Status Reason Start Date Expiration Date Visits Requested Visits Authorized [id number] Authorized PCP Requested Referral 11/06/2023 11/05/2024 1 1 Specialty Diagnoses / Procedures Referred By Contac t Referred To Contact CT IMAGING Diagnoses 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) Procedures CT CHEST W IVCON DIAGNOSTIC COMPUTED TOMOGRAPHY THORAX W/[place] [address] [place] [address] [address] Imaging [place] [address] Referral ID Status Reason Start Date Expiration Date Visits Requested Visits Authorized [id number] Authorized Auto-Generat ed Referral 12/16/2023 01/14/2025 1 1 Specialty Diagnoses / Procedures Referred By Contac t Referred To Contact CT IMAGING Diagnoses 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) Procedures CT ABD/PEL W IVCON CT ABD & PELVIS W/[place] [address] [place] [address] [address] Imaging [place] [address] Referral ID Status Reason Start Date Expiration Date Visits Requested Visits Authorized [id number] Authorized Auto-Generat ed Referral 12/16/2023 01/14/2025 1 1 Specialty Diagnoses / Procedures Referred By Contac t Referred To Contact MR IMAGING Diagnoses 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) Abnormal CT of liver Procedures MRI LIVER WO/W IVCON MRI ABDOMEN W/O & W/CONTRAST MATERIAL Phong Aj DO [address] [place] [address] Mr Imaging [facility] Referral ID Status Reason Start Date Expiration Date Visits Requested Visits Authorized [id number] Authorized Auto-Generat ed Referral 01/13/2024 02/11/2025 1 1 Specialty Diagnoses / Procedures Referred By Contac t Referred To Contact CT IMAGING Diagnoses 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) Procedures CT CHEST WO IVCON DIAGNOSTIC COMPUTED TOMOGRAPHY THORAX W/O CNTRST Pohng Aj, DO [address] [place] [place] [address] [place] [address] Referral ID Status Reason Start Date Expiration Date Visits Requested Visits Authorized [id number] Authorized Auto-Generat ed Referral 01/26/2024 02/24/2025 1 1 Referral ID Status Reason Start Date Expiration Date V isits Requested Visits Authorized [id number] Closed Auto-Generate d Referral 09/22/2023 10/21/2024 1 1 Referral ID Status Reason Start Date Expiration Date V isits Requested Visits Authorized [id number] Closed Auto-Generate d Referral 09/22/2023 10/21/2024 1 1 Additional Source Comments (unrecognized sect ion and content) No Status Records FoundNo Status Records FoundNo Status Records FoundNo Status Records FoundNo Status Records FoundNo Status Records Found INFORMATION SOURCE (unrecogn ized section and content) DATE CREATED AUTHOR 11/03/2020 [facility] DATE CREATED AUTHOR AUTHOR'S ORGANIZ ATION 11/10/2020 [facility] DATE CREATED AUTHOR AUTHOR'S ORGANIZ ATION 08/22/2023 [facility] DATE CREATED AUTHOR AUTHOR'S ORGANIZ ATION 10/28/2023 [facility] DATE CREATED AUTHOR AUTHOR'S ORGANIZ ATION 12/13/2023 [facility] DATE CREATED AUTHOR AUTHOR'S ORGANIZ ATION 03/28/2024 [facility] Source Comments (unrecognize d section and content) In the event this informatio n is protected by the Federal Confidentiality of Alcohol and Drug Abuse Patient Records regulations: The Federal rules restrict any use of the information to criminally investigate or prosecute any alcohol or drug abuse patient.[facility] event this information is protected by the Federal Confidentiality of Alcohol and Drug Abuse Patient Records regulations: The Federal rules restrict any use of the information to criminally investigate or prosecute any alcohol or drug abuse patient.[facility] the event this information is protected by the Federal Confidentiality of Alcohol and Drug Abuse Patient Records regulations: The Federal rules restrict any use of the information to criminally investigate or prosecute any alcohol or drug abuse patient.[facility] the event this information is protected by the Federal Confidentiality of Alcohol and Drug Abuse Patient Records regulations: The Federal rules restrict any use of the information to criminally investigate or prosecute any alcohol or drug abuse patient.[facility] the event this information is protected by the Federal Confidentiality of Alcohol and Drug Abuse Patient Records regulations: The Federal rules restrict any use of the information to criminally investigate or prosecute any alcohol or drug abuse patient.[facility] the event this information is protected by the Federal Confidentiality of Alcohol and Drug Abuse Patient Records regulations: The Federal rules restrict any use of the information to criminally investigate or prosecute any alcohol or drug abuse patient.[facility] the event this information is protected by the Federal Confidentiality of Alcohol and Drug Abuse Patient Records regulations: The Federal rules restrict any use of the information to criminally investigate or prosecute any alcohol or drug abuse patient.[facility] the event this information is protected by the Federal Confidentiality of Alcohol and Drug Abuse Patient Records regulations: The Federal rules restrict any use of the information to criminally investigate or prosecute any alcohol or drug abuse patient.[facility] event this information is protected by the Federal Confidentiality of Alcohol and Drug Abuse Patient Records regulations: The Federal rules restrict any use of the information to criminally investigate or prosecute any alcohol or drug abuse patient.[facility] event this information is protected by the Federal Confidentiality of Alcohol and Drug Abuse Patient Records regulations: The Federal rules restrict any use of the information to criminally investigate or prosecute any alcohol or drug abuse patient.[facility] the event this information is protected by the Federal Confidentiality of Alcohol and Drug Abuse Patient Records regulations: The Federal rules restrict any use of the information to criminally investigate or prosecute any alcohol or drug abuse patient.[facility] event this information is protected by the Federal Confidentiality of Alcohol and Drug Abuse Patient Records regulations: The Federal rules restrict any use of the information to criminally investigate or prosecute any alcohol or drug abuse patient.[facility] the event this information is protected by the Federal Confidentiality of Alcohol and Drug Abuse Patient Records regulations: The Federal rules restrict any use of the information to criminally investigate or prosecute any alcohol or drug abuse patient.[facility]In the event this information is protected by the Federal Confidentiality of Alcohol and Drug Abuse Patient Records regulations: The Federal rules restrict any use of the information to criminally investigate or prosecute any alcohol or drug abuse patient.[facility]In the event this information is protected by the Federal Confidentiality of Alcohol and Drug Abuse Patient Records regulations: The Federal rules restrict any use of the information to criminally investigate or prosecute any alcohol or drug abuse patient.[facility]In the event this information is protected by the Federal Confidentiality of Alcohol and Drug Abuse Patient Records regulations: The Federal rules restrict any use of the information to criminally investigate or prosecute any alcohol or drug abuse patient.[facility]In the event this information is protected by the Federal Confidentiality of Alcohol and Drug Abuse Patient Records regulations: The Federal rules restrict any use of the information to criminally investigate or prosecute any alcohol or drug abuse patient.[facility]In the event this information is protected by the Federal Confidentiality of Alcohol and Drug Abuse Patient Records regulations: The Federal rules restrict any use of the information to criminally investigate or prosecute any alcohol or drug abuse patient.[facility]In the event this information is protected by the Federal Confidentiality of Alcohol and Drug Abuse Patient Records regulations: The Federal rules restrict any use of the information to criminally investigate or prosecute any alcohol or drug abuse patient.[facility]In the event this information is protected by the Federal Confidentiality of Alcohol and Drug Abuse Patient Records regulations: The Federal rules restrict any use of the information to criminally investigate or prosecute any alcohol or drug abuse patient.[facility]In the event this information is protected by the Federal Confidentiality of Alcohol and Drug Abuse Patient Records regulations: The Federal rules restrict any use of the information to criminally investigate or prosecute any alcohol or drug abuse patient.[facility]In the event this information is protected by the Federal Confidentiality of Alcohol and Drug Abuse Patient Records regulations: The Federal rules restrict any use of the information to criminally investigate or prosecute any alcohol or drug abuse patient.[facility]In the event this information is protected by the Federal Confidentiality of Alcohol and Drug Abuse Patient Records regulations: The Federal rules restrict any use of the information to criminally investigate or prosecute any alcohol or drug abuse patient.[facility]In the event this information is protected by the Federal Confidentiality of Alcohol and Drug Abuse Patient Records regulations: The Federal rules restrict any use of the information to criminally investigate or prosecute any alcohol or drug abuse patient.[facility]In the event this information is protected by the Federal Confidentiality of Alcohol and Drug Abuse Patient Records regulations: The Federal rules restrict any use of the information to criminally investigate or prosecute any alcohol or drug abuse patient.[facility]In the event this information is protected by the Federal Confidentiality of Alcohol and Drug Abuse Patient Records regulations: The Federal rules restrict any use of the information to criminally investigate or prosecute any alcohol or drug abuse patient.[facility]In the event this information is protected by the Federal Confidentiality of Alcohol and Drug Abuse Patient Records regulations: The Federal rules restrict any use of the information to criminally investigate or prosecute any alcohol or drug abuse patient.[facility]In the event this information is protected by the Federal Confidentiality of Alcohol and Drug Abuse Patient Records regulations: The Federal rules restrict any use of the information to criminally investigate or prosecute any alcohol or drug abuse patient.[facility]In the event this information is protected by the Federal Confidentiality of Alcohol and Drug Abuse Patient Records regulations: The Federal rules restrict any use of the information to criminally investigate or prosecute any alcohol or drug abuse patient.[facility]In the event this information is protected by the Federal Confidentiality of Alcohol and Drug Abuse Patient Records regulations: The Federal rules restrict any use of the information to criminally investigate or prosecute any alcohol or drug abuse patient.[facility]In the event this information is protected by the Federal Confidentiality of Alcohol and Drug Abuse Patient Records regulations: The Federal rules restrict any use of the information to criminally investigate or prosecute any alcohol or drug abuse patient.[facility]In the event this information is protected by the Federal Confidentiality of Alcohol and Drug Abuse Patient Records regulations: The Federal rules restrict any use of the information to criminally investigate or prosecute any alcohol or drug abuse patient.[facility]In the event this information is protected by the Federal Confidentiality of Alcohol and Drug Abuse Patient Records regulations: The Federal rules restrict any use of the information to criminally investigate or prosecute any alcohol or drug abuse patient.[facility]In the event this information is protected by the Federal Confidentiality of Alcohol and Drug Abuse Patient Records regulations: The Federal rules restrict any use of the information to criminally investigate or prosecute any alcohol or drug abuse patient.[facility]In the event this information is protected by the Federal Confidentiality of Alcohol and Drug Abuse Patient Records regulations: The Federal rules restrict any use of the information to criminally investigate or prosecute any alcohol or drug abuse patient.[facility]In the event this information is protected by the Federal Confidentiality of Alcohol and Drug Abuse Patient Records regulations: The Federal rules restrict any use of the information to criminally investigate or prosecute any alcohol or drug abuse patient.[facility]In the event this information is protected by the Federal Confidentiality of Alcohol and Drug Abuse Patient Records regulations: The Federal rules restrict any use of the information to criminally investigate or prosecute any alcohol or drug abuse patient.[facility]In the event this information is protected by the Federal Confidentiality of Alcohol and Drug Abuse Patient Records regulations: The Federal rules restrict any use of the information to criminally investigate or prosecute any alcohol or drug abuse patient.[facility]In the event this information is protected by the Federal Confidentiality of Alcohol and Drug Abuse Patient Records regulations: The Federal rules restrict any use of the information to criminally investigate or prosecute any alcohol or drug abuse patient.[facility]In the event this information is protected by the Federal Confidentiality of Alcohol and Drug Abuse Patient Records regulations: The Federal rules restrict any use of the information to criminally investigate or prosecute any alcohol or drug abuse patient.[facility]In the event this information is protected by the Federal Confidentiality of Alcohol and Drug Abuse Patient Records regulations: The Federal rules restrict any use of the information to criminally investigate or prosecute any alcohol or drug abuse patient.[facility]In the event this information is protected by the Federal Confidentiality of Alcohol and Drug Abuse Patient Records regulations: The Federal rules restrict any use of the information to criminally investigate or prosecute any alcohol or drug abuse patient.[facility]In the event this information is protected by the Federal Confidentiality of Alcohol and Drug Abuse Patient Records regulations: The Federal rules restrict any use of the information to criminally investigate or prosecute any alcohol or drug abuse patient.[facility]In the event this information is protected by the Federal Confidentiality of Alcohol and Drug Abuse Patient Records regulations: The Federal rules restrict any use of the information to criminally investigate or prosecute any alcohol or drug abuse patient.[facility]In the event this information is protected by the Federal Confidentiality of Alcohol and Drug Abuse Patient Records regulations: The Federal rules restrict any use of the information to criminally investigate or prosecute any alcohol or drug abuse patient.[facility]In the event this information is protected by the Federal Confidentiality of Alcohol and Drug Abuse Patient Records regulations: The Federal rules restrict any use of the information to criminally investigate or prosecute any alcohol or drug abuse patient.[facility]In the event this information is protected by the Federal Confidentiality of Alcohol and Drug Abuse Patient Records regulations: The Federal rules restrict any use of the information to criminally investigate or prosecute any alcohol or drug abuse patient.[facility]In the event this information is protected by the Federal Confidentiality of Alcohol and Drug Abuse Patient Records regulations: The Federal rules restrict any use of the information to criminally investigate or prosecute any alcohol or drug abuse patient.[facility]In the event this information is protected by the Federal Confidentiality of Alcohol and Drug Abuse Patient Records regulations: The Federal rules restrict any use of the information to criminally investigate or prosecute any alcohol or drug abuse patient.[facility]In the event this information is protected by the Federal Confidentiality of Alcohol and Drug Abuse Patient Records regulations: The Federal rules restrict any use of the information to criminally investigate or prosecute any alcohol or drug abuse patient.[facility]In the event this information is protected by the Federal Confidentiality of Alcohol and Drug Abuse Patient Records regulations: The Federal rules restrict any use of the information to criminally investigate or prosecute any alcohol or drug abuse patient.[facility]In the event this information is protected by the Federal Confidentiality of Alcohol and Drug Abuse Patient Records regulations: The Federal rules restrict any use of the information to criminally investigate or prosecute any alcohol or drug abuse patient.[facility]In the event this information is protected by the Federal Confidentiality of Alcohol and Drug Abuse Patient Records regulations: The Federal rules restrict any use of the information to criminally investigate or prosecute any alcohol or drug abuse patient.[facility]In the event this information is protected by the Federal Confidentiality of Alcohol and Drug Abuse Patient Records regulations: The Federal rules restrict any use of the information to criminally investigate or prosecute any alcohol or drug abuse patient.[facility]In the event this information is protected by the Federal Confidentiality of Alcohol and Drug Abuse Patient Records regulations: The Federal rules restrict any use of the information to criminally investigate or prosecute any alcohol or drug abuse patient.[facility]In the event this information is protected by the Federal Confidentiality of Alcohol and Drug Abuse Patient Records regulations: The Federal rules restrict any use of the information to criminally investigate or prosecute any alcohol or drug abuse patient.[facility]In the event this information is protected by the Federal Confidentiality of Alcohol and Drug Abuse Patient Records regulations: The Federal rules restrict any use of the information to criminally investigate or prosecute any alcohol or drug abuse patient.[facility]In the event this information is protected by the Federal Confidentiality of Alcohol and Drug Abuse Patient Records regulations: The Federal rules restrict any use of the information to criminally investigate or prosecute any alcohol or drug abuse patient.[facility]In the event this information is protected by the Federal Confidentiality of Alcohol and Drug Abuse Patient Records regulations: The Federal rules restrict any use of the information to criminally investigate or prosecute any alcohol or drug abuse patient.[facility]In the event this information is protected by the Federal Confidentiality of Alcohol and Drug Abuse Patient Records regulations: The Federal rules restrict any use of the information to criminally investigate or prosecute any alcohol or drug abuse patient.[facility]In the event this information is protected by the Federal Confidentiality of Alcohol and Drug Abuse Patient Records regulations: The Federal rules restrict any use of the information to criminally investigate or prosecute any alcohol or drug abuse patient.[facility]In the event this information is protected by the Federal Confidentiality of Alcohol and Drug Abuse Patient Records regulations: The Federal rules restrict any use of the information to criminally investigate or prosecute any alcohol or drug abuse patient.[facility]In the event this information is protected by the Federal Confidentiality of Alcohol and Drug Abuse Patient Records regulations: The Federal rules restrict any use of the information to criminally investigate or prosecute any alcohol or drug abuse patient.[facility]In the event this information is protected by the Federal Confidentiality of Alcohol and Drug Abuse Patient Records regulations: The Federal rules restrict any use of the information to criminally investigate or prosecute any alcohol or drug abuse patient.[facility]In the event this information is protected by the Federal Confidentiality of Alcohol and Drug Abuse Patient Records regulations: The Federal rules restrict any use of the information to criminally investigate or prosecute any alcohol or drug abuse patient.[facility]In the event this information is protected by the Federal Confidentiality of Alcohol and Drug Abuse Patient Records regulations: The Federal rules restrict any use of the information to criminally investigate or prosecute any alcohol or drug abuse patient.[facility]In the event this information is protected by the Federal Confidentiality of Alcohol and Drug Abuse Patient Records regulations: The Federal rules restrict any use of the information to criminally investigate or prosecute any alcohol or drug abuse patient.[facility]In the event this information is protected by the Federal Confidentiality of Alcohol and Drug Abuse Patient Records regulations: The Federal rules restrict any use of the information to criminally investigate or prosecute any alcohol or drug abuse patient.[facility]In the event this information is protected by the Federal Confidentiality of Alcohol and Drug Abuse Patient Records regulations: The Federal rules restrict any use of the information to criminally investigate or prosecute any alcohol or drug abuse patient.[facility]In the event this information is protected by the Federal Confidentiality of Alcohol and Drug Abuse Patient Records regulations: The Federal rules restrict any use of the information to criminally investigate or prosecute any alcohol or drug abuse patient.[facility]In the event this information is protected by the Federal Confidentiality of Alcohol and Drug Abuse Patient Records regulations: The Federal rules restrict any use of the information to criminally investigate or prosecute any alcohol or drug abuse patient.[facility]In the event this information is protected by the Federal Confidentiality of Alcohol and Drug Abuse Patient Records regulations: The Federal rules restrict any use of the information to criminally investigate or prosecute any alcohol or drug abuse patient.[facility]In the event this information is protected by the Federal Confidentiality of Alcohol and Drug Abuse Patient Records regulations: The Federal rules restrict any use of the information to criminally investigate or prosecute any alcohol or drug abuse patient.[facility]In the event this information is protected by the Federal Confidentiality of Alcohol and Drug Abuse Patient Records regulations: The Federal rules restrict any use of the information to criminally investigate or prosecute any alcohol or drug abuse patient.[facility]In the event this information is protected by the Federal Confidentiality of Alcohol and Drug Abuse Patient Records regulations: The Federal rules restrict any use of the information to criminally investigate or prosecute any alcohol or drug abuse patient.[facility]In the event this information is protected by the Federal Confidentiality of Alcohol and Drug Abuse Patient Records regulations: The Federal rules restrict any use of the information to criminally investigate or prosecute any alcohol or drug abuse patient.[facility]In the event this information is protected by the Federal Confidentiality of Alcohol and Drug Abuse Patient Records regulations: The Federal rules restrict any use of the information to criminally investigate or prosecute any alcohol or drug abuse patient.[facility]In the event this information is protected by the Federal Confidentiality of Alcohol and Drug Abuse Patient Records regulations: The Federal rules restrict any use of the information to criminally investigate or prosecute any alcohol or drug abuse patient.[facility]In the event this information is protected by the Federal Confidentiality of Alcohol and Drug Abuse Patient Records regulations: The Federal rules restrict any use of the information to criminally investigate or prosecute any alcohol or drug abuse patient.[facility]In the event this information is protected by the Federal Confidentiality of Alcohol and Drug Abuse Patient Records regulations: The Federal rules restrict any use of the information to criminally investigate or prosecute any alcohol or drug abuse patient.[facility]In the event this information is protected by the Federal Confidentiality of Alcohol and Drug Abuse Patient Records regulations: The Federal rules restrict any use of the information to criminally investigate or prosecute any alcohol or drug abuse patient.[facility]In the event this information is protected by the Federal Confidentiality of Alcohol and Drug Abuse Patient Records regulations: The Federal rules restrict any use of the information to criminally investigate or prosecute any alcohol or drug abuse patient.[facility]In the event this information is protected by the Federal Confidentiality of Alcohol and Drug Abuse Patient Records regulations: The Federal rules restrict any use of the information to criminally investigate or prosecute any alcohol or drug abuse patient.[facility]In the event this information is protected by the Federal Confidentiality of Alcohol and Drug Abuse Patient Records regulations: The Federal rules restrict any use of the information to criminally investigate or prosecute any alcohol or drug abuse patient.[facility]In the event this information is protected by the Federal Confidentiality of Alcohol and Drug Abuse Patient Records regulations: The Federal rules restrict any use of the information to criminally investigate or prosecute any alcohol or drug abuse patient.[facility]In the event this information is protected by the Federal Confidentiality of Alcohol and Drug Abuse Patient Records regulations: The Federal rules restrict any use of the information to criminally investigate or prosecute any alcohol or drug abuse patient.[facility]In the event this information is protected by the Federal Confidentiality of Alcohol and Drug Abuse Patient Records regulations: The Federal rules restrict any use of the information to criminally investigate or prosecute any alcohol or drug abuse patient.[facility]In the event this information is protected by the Federal Confidentiality of Alcohol and Drug Abuse Patient Records regulations: The Federal rules restrict any use of the information to criminally investigate or prosecute any alcohol or drug abuse patient.[facility]In the event this information is protected by the Federal Confidentiality of Alcohol and Drug Abuse Patient Records regulations: The Federal rules restrict any use of the information to criminally investigate or prosecute any alcohol or drug abuse patient.[facility]In the event this information is protected by the Federal Confidentiality of Alcohol and Drug Abuse Patient Records regulations: The Federal rules restrict any use of the information to criminally investigate or prosecute any alcohol or drug abuse patient.[facility]In the event this information is protected by the Federal Confidentiality of Alcohol and Drug Abuse Patient Records regulations: The Federal rules restrict any use of the information to criminally investigate or prosecute any alcohol or drug abuse patient.[facility]In the event this information is protected by the Federal Confidentiality of Alcohol and Drug Abuse Patient Records regulations: The Federal rules restrict any use of the information to criminally investigate or prosecute any alcohol or drug abuse patient.[facility]In the event this information is protected by the Federal Confidentiality of Alcohol and Drug Abuse Patient Records regulations: The Federal rules restrict any use of the information to criminally investigate or prosecute any alcohol or drug abuse patient.[facility]In the event this information is protected by the Federal Confidentiality of Alcohol and Drug Abuse Patient Records regulations: The Federal rules restrict any use of the information to criminally investigate or prosecute any alcohol or drug abuse patient.[facility]In the event this information is protected by the Federal Confidentiality of Alcohol and Drug Abuse Patient Records regulations: The Federal rules restrict any use of the information to criminally investigate or prosecute any alcohol or drug abuse patient.[facility]In the event this information is protected by the Federal Confidentiality of Alcohol and Drug Abuse Patient Records regulations: The Federal rules restrict any use of the information to criminally investigate or prosecute any alcohol or drug abuse patient.[facility]In the event this information is protected by the Federal Confidentiality of Alcohol and Drug Abuse Patient Records regulations: The Federal rules restrict any use of the information to criminally investigate or prosecute any alcohol or drug abuse patient.[facility]In the event this information is protected by the Federal Confidentiality of Alcohol and Drug Abuse Patient Records regulations: The Federal rules restrict any use of the information to criminally investigate or prosecute any alcohol or drug abuse patient.[facility]In the event this information is protected by the Federal Confidentiality of Alcohol and Drug Abuse Patient Records regulations: The Federal rules restrict any use of the information to criminally investigate or prosecute any alcohol or drug abuse patient.[facility] the event this information is protected by the Federal Confidentiality of Alcohol and Drug Abuse Patient Records regulations: The Federal rules restrict any use of the information to criminally investigate or prosecute any alcohol or drug abuse patient.[facility]In the event this information is protected by the Federal Confidentiality of Alcohol and Drug Abuse Patient Records regulations: The Federal rules restrict any use of the information to criminally investigate or prosecute any alcohol or drug abuse patient.[facility] the event this information is protected by the Federal Confidentiality of Alcohol and Drug Abuse Patient Records regulations: The Federal rules restrict any use of the information to criminally investigate or prosecute any alcohol or drug abuse patient.[facility] HospitalIn the event this information is protected by the Federal Confidentiality of Alcohol and Drug Abuse Patient Records regulations: The Federal rules restrict any use of the information to criminally investigate or prosecute any alcohol or drug abuse patient.[facility] HospitalIn the event this information is protected by the Federal Confidentiality of Alcohol and Drug Abuse Patient Records regulations: The Federal rules restrict any use of the information to criminally investigate or prosecute any alcohol or drug abuse patient.[facility] HospitalIn the event this information is protected by the Federal Confidentiality of Alcohol and Drug Abuse Patient Records regulations: The Federal rules restrict any use of the information to criminally investigate or prosecute any alcohol or drug abuse patient.[facility] HospitalIn the event this information is protected by the Federal Confidentiality of Alcohol and Drug Abuse Patient Records regulations: The Federal rules restrict any use of the information to criminally investigate or prosecute any alcohol or drug abuse patient.[facility]In the event this information is protected by the Federal Confidentiality of Alcohol and Drug Abuse Patient Records regulations: The Federal rules restrict any use of the information to criminally investigate or prosecute any alcohol or drug abuse patient.[facility]In the event this information is protected by the Federal Confidentiality of Alcohol and Drug Abuse Patient Records regulations: The Federal rules restrict any use of the information to criminally investigate or prosecute any alcohol or drug abuse patient.[facility] HospitalIn the event this information is protected by the Federal Confidentiality of Alcohol and Drug Abuse Patient Records regulations: The Federal rules restrict any use of the information to criminally investigate or prosecute any alcohol or drug abuse patient.[facility] HospitalIn the event this information is protected by the Federal Confidentiality of Alcohol and Drug Abuse Patient Records regulations: The Federal rules restrict any use of the information to criminally investigate or prosecute any alcohol or drug abuse patient.[facility] HospitalIn the event this information is protected by the Federal Confidentiality of Alcohol and Drug Abuse Patient Records regulations: The Federal rules restrict any use of the information to criminally investigate or prosecute any alcohol or drug abuse patient.[facility] HospitalIn the event this information is protected by the Federal Confidentiality of Alcohol and Drug Abuse Patient Records regulations: The Federal rules restrict any use of the information to criminally investigate or prosecute any alcohol or drug abuse patient.[facility] HospitalIn the event this information is protected by the Federal Confidentiality of Alcohol and Drug Abuse Patient Records regulations: The Federal rules restrict any use of the information to criminally investigate or prosecute any alcohol or drug abuse patient.[facility] HospitalIn the event this information is protected by the Federal Confidentiality of Alcohol and Drug Abuse Patient Records regulations: The Federal rules restrict any use of the information to criminally investigate or prosecute any alcohol or drug abuse patient.[facility]In the event this information is protected by the Federal Confidentiality of Alcohol and Drug Abuse Patient Records regulations: The Federal rules restrict any use of the information to criminally investigate or prosecute any alcohol or drug abuse patient.[facility] HospitalIn the event this information is protected by the Federal Confidentiality of Alcohol and Drug Abuse Patient Records regulations: The Federal rules restrict any use of the information to criminally investigate or prosecute any alcohol or drug abuse patient.[facility]In the event this information is protected by the Federal Confidentiality of Alcohol and Drug Abuse Patient Records regulations: The Federal rules restrict any use of the information to criminally investigate or prosecute any alcohol or drug abuse patient.[facility] HospitalIn the event this information is protected by the Federal Confidentiality of Alcohol and Drug Abuse Patient Records regulations: The Federal rules restrict any use of the information to criminally investigate or prosecute any alcohol or drug abuse patient.[facility] HospitalIn the event this information is protected by the Federal Confidentiality of Alcohol and Drug Abuse Patient Records regulations: The Federal rules restrict any use of the information to criminally investigate or prosecute any alcohol or drug abuse patient.[facility] HospitalIn the event this information is protected by the Federal Confidentiality of Alcohol and Drug Abuse Patient Records regulations: The Federal rules restrict any use of the information to criminally investigate or prosecute any alcohol or drug abuse patient.[facility]In the event this information is protected by the Federal Confidentiality of Alcohol and Drug Abuse Patient Records regulations: The Federal rules restrict any use of the information to criminally investigate or prosecute any alcohol or drug abuse patient.[facility] HospitalIn the event this information is protected by the Federal Confidentiality of Alcohol and Drug Abuse Patient Records regulations: The Federal rules restrict any use of the information to criminally investigate or prosecute any alcohol or drug abuse patient.[facility] Care Teams (unrecognized sec tion and content) Insole Beveler Relationship Specialty Start Date End Date Delroy Heath DO PCP - General Family Medicine 09/18/20 Insole Beveler Relationship Specialty Start Date End Date Delroy Heath DO PCP - General Family Medicine 09/18/20 Insole Beveler Relationship Specialty Start Date End Date Delroy Heath DO PCP - General Family Medicine 09/18/20 Insole Beveler Relationship Specialty Start Date End Date Delroy Heath DO PCP - General Family Medicine 09/18/20 Insole Beveler Relationship Specialty Start Date End Date Delroy Heath DO PCP - General Family Medicine 09/18/20 Insole Beveler Relationship Specialty Start Date End Date Kumar Delroy CummingsDO PCP - General Family Medicine 09/18/20 08/06/23 Delroy Trotter MD [address] [place] [address] PCP - General Family Medicine 08/07/23 Insole Beveler Relationship Specialty Start Date End Date Delroy Trotter MD [address] [place] [address] PCP - General Family Medicine 08/07/23 Insole Beveler Relationship Specialty Start Date End Date Delroy Trotter MD [address] [place] [address] PCP - General Family Medicine 08/07/23 Insole Beveler Relationship Specialty Start Date End Date Delroy Trotter MD [address] [place] [address] PCP - General Family Medicine 08/07/23 Insole Beveler Relationship Specialty Start Date End Date Delroy Trotter MD [address] [place] [address] PCP - General Family Medicine 08/07/23 Insole Beveler Relationship Specialty Start Date End Date Delroy Trotter MD [address] [place] [address] PCP - General Family Medicine 08/07/23 Phong Aj DO [address] [place] [address] Hematology/Oncology 08/14/23 Gretchen Del Castillo RN Specialty Global Clinical Leader Oncology 08/14/23 Insole Beveler Relationship Specialty Start Date End Date Delroy Trotter MD [address] [place] [address] PCP - General Family Medicine 08/07/23 Phong Aj DO [address] [place] [address] Hematology/Oncology 08/14/23 Gretchen Del Castillo RN Specialty Global Clinical Leader Oncology 08/14/23 Insole Beveler Relationship Specialty Start Date End Date Delroy Trotter MD [address] [place] [address] PCP - General Family Medicine 08/07/23 Phong Aj DO [address] [place] [address] Hematology/Oncology 08/14/23 Gretchen Del Castillo RN Specialty Global Clinical Leader Oncology 08/14/23 Insole Beveler Relationship Specialty Start Date End Date Delroy Trotter MD [address] [place] [address] PCP - General Family Medicine 08/07/23 Phong Aj DO [address] [place] [address] Hematology/Oncology 08/14/23 Gretchen Del Castillo RN Specialty Global Clinical Leader Oncology 08/14/23 Insole Beveler Relationship Specialty Start Date End Date Delroy Trotter MD [address] [place] [address] PCP - General Family Medicine 08/07/23 Phong Aj DO [address] [place] [address] Hematology/Oncology 08/14/23 Gretchen Del Castillo RN Specialty Global Clinical Leader Oncology 08/14/23 Insole Beveler Relationship Specialty Start Date End Date Delroy Trotter MD [address] [place] [address] PCP - General Family Medicine 08/07/23 Phong Aj DO [address] [place] [address] Hematology/Oncology 08/14/23 Gretchen Del Castillo RN Specialty Global Clinical Leader Oncology 08/14/23 Insole Beveler Relationship Specialty Start Date End Date Delroy Trotter MD [address] [place] [address] PCP - General Family Medicine 08/07/23 Phong Aj DO [address] [place] [address] Hematology/Oncology 08/14/23 Gretchen Del Castillo RN Specialty Global Clinical Leader Oncology 08/14/23 Insole Beveler Relationship Specialty Start Date End Date Delroy Trotter MD [address] [place] [address] PCP - General Family Medicine 08/07/23 Phong Aj DO [address] [place] [address] Hematology/Oncology 08/14/23 Gretchen Del Castillo RN Specialty Global Clinical Leader Oncology 08/14/23 Insole Beveler Relationship Specialty Start Date End Date Delroy Trotter MD [address] [place] [address] PCP - General Family Medicine 08/07/23 Phong Aj DO [address] [place] [address] Hematology/Oncology 08/14/23 Gretchen Del Castillo RN Specialty Global Clinical Leader Oncology 08/14/23 Insole Beveler Relationship Specialty Start Date End Date Delroy Trotter MD [address] [place] [address] PCP - General Family Medicine 08/07/23 Phong Aj DO [address] [place] [address] Hematology/Oncology 08/14/23 Gretchen Del Castillo RN Specialty Global Clinical Leader Oncology 08/14/23 Insole Beveler Relationship Specialty Start Date End Date Delroy Trotter MD [address] [place] [address] PCP - General Family Medicine 08/07/23 Phong Aj DO [address] [place] [address] Hematology/Oncology 08/14/23 Gretchen Del Castillo RN Specialty Global Clinical Leader Oncology 08/14/23 Insole Beveler Relationship Specialty Start Date End Date Delroy Trotter MD [address] [place] [address] PCP - General Family Medicine 08/07/23 Phong Aj DO [address] [place] [address] Hematology/Oncology 08/14/23 Gretchen Del Castillo RN Specialty Global Clinical Leader Oncology 08/14/23 Insole Beveler Relationship Specialty Start Date End Date Delroy Trotter MD [address] [place] [address] PCP - General Family Medicine 08/07/23 Phong Aj DO [address] [place] [address] Hematology/Oncology 08/14/23 Gretchen Del Castillo RN Specialty Global Clinical Leader Oncology 08/14/23 Insole Beveler Relationship Specialty Start Date End Date Delroy Trotter MD [address] [facility] [address] [place] [address] PCP - General Family Medicine 08/07/23 Phogn Aj DO [address] [place] [address] Hematology/Oncology 08/14/23 Gretchen Del Castillo RN Specialty Global Clinical Leader Oncology 08/14/23 Insole Beveler Relationship Specialty Start Date End Date Delroy Trotter MD [address] [place] [address] PCP - General Family Medicine 08/07/23 Phong Aj DO [address] [place] [address] Hematology/Oncology 08/14/23 Gretchen Del Castillo RN Specialty Global Clinical Leader Oncology 08/14/23 Insole Beveler Relationship Specialty Start Date End Date Delroy Trotter MD [address] [place] [address] PCP - General Family Medicine 08/07/23 Phong Aj DO [address] [place] [address] Hematology/Oncology 08/14/23 Gretchen Del Castillo RN Specialty Global Clinical Leader Oncology 08/14/23 Insole Beveler Relationship Specialty Start Date End Date Delroy Trotter MD [address] [place] [address] PCP - General Family Medicine 08/07/23 Phong Aj DO [address] [place] [address] Hematology/Oncology 08/14/23 Gretchen Del Castillo RN Specialty Global Clinical Leader Oncology 08/14/23 Insole Beveler Relationship Specialty Start Date End Date Delroy Trotter MD [address] [place] [address] PCP - General Family Medicine 08/07/23 Phong Aj DO [address] [place] [address] Hematology/Oncology 08/14/23 Gretchen Del Castillo RN Specialty Global Clinical Leader Oncology 08/14/23 Insole Beveler Relationship Specialty Start Date End Date Delroy Trotter MD [address] [place] [address] PCP - General Family Medicine 08/07/23 Phong Aj DO [address] [place] [address] Hematology/Oncology 08/14/23 Gretchen Del Castillo RN Specialty Global Clinical Leader Oncology 08/14/23 Insole Beveler Relationship Specialty Start Date End Date Delroy Trotter MD [address] [place] [address] PCP - General Family Medicine 08/07/23 Phong Aj DO [address] [place] [address] Hematology/Oncology 08/14/23 Gretchen Del Castillo RN Specialty Global Clinical Leader Oncology 08/14/23 Insole Beveler Relationship Specialty Start Date End Date Delroy Trotter MD [address] [place] [address] PCP - General Family Medicine 08/07/23 Phong Aj DO [address] [place] [address] Hematology/Oncology 08/14/23 Gretchen Del Castillo RN Specialty Global Clinical Leader Oncology 08/14/23 Insole Beveler Relationship Specialty Start Date End Date Delroy Trotter MD [address] [place] [address] PCP - General Family Medicine 08/07/23 Phong Aj DO [address] [place] [address] Hematology/Oncology 08/14/23 Gretchen Del Castillo RN Specialty Global Clinical Leader Oncology 08/14/23 Insole Beveler Relationship Specialty Start Date End Date Delroy Trotter MD [address] [place] [address] PCP - General Family Medicine 08/07/23 Phong Aj DO [address] [place] [address] Hematology/Oncology 08/14/23 Gretchen Del Castillo RN Specialty Global Clinical Leader Oncology 08/14/23 Insole Beveler Relationship Specialty Start Date End Date Delroy Trotter MD [address] [place] [address] PCP - General Family Medicine 08/07/23 Phong Aj DO [address] [place] [address] Hematology/Oncology 08/14/23 Gretchen Del Castillo RN Specialty Global Clinical Leader Oncology 08/14/23 Insole Beveler Relationship Specialty Start Date End Date Delroy Trotter MD [address] [place] [address] PCP - General Family Medicine 08/07/23 Phong Aj DO [address] [place] [address] Hematology/Oncology 08/14/23 Gretchen Del Castillo RN Specialty Global Clinical Leader Oncology 08/14/23 Insole Beveler Relationship Specialty Start Date End Date Delroy Trotter MD [address] [place] [address] PCP - General Family Medicine 08/07/23 Phong Aj DO [address] [place] [address] Hematology/Oncology 08/14/23 Gretchen Del Castillo RN Specialty Global Clinical Leader Oncology 08/14/23 Ashleigh Enciso, [employer]ARMENT [employer] CUTTER MACHINE [address] [place] [address] Gold Leaf Roller Hematology/Oncology 10/21/23 Insole Beveler Relationship Specialty Start Date End Date Delroy Trotter MD [address] [place] [address] PCP - General Family Medicine 08/07/23 Phong Aj DO [address] [place] [address] Hematology/Oncology 08/14/23 Gretchen Del Castillo RN Specialty Global Clinical Leader Oncology 08/14/23 Ashleigh Enciso, G[employer] CUTTER MACHINE [address] [place] [address] Gold Leaf Roller Hematology/Oncology 10/21/23 Insole Beveler Relationship Specialty Start Date End Date Delroy Trotter MD [address] [place] [address] PCP - General Family Medicine 08/07/23 Phong Aj DO [address] [place] [address] Hematology/Oncology 08/14/23 Gretchen Del Castillo RN Specialty Global Clinical Leader Oncology 08/14/23 Ashleigh Enciso, G[employer] CUTTER MACHINE [address] [place] [address] Gold Leaf Roller Hematology/Oncology 10/21/23 Insole Beveler Relationship Specialty Start Date End Date Delroy Trotter MD [address] [place] [address] PCP - General Family Medicine 08/07/23 Phong Aj DO [address] [place] [address] Hematology/Oncology 08/14/23 Gretchen Del Castillo RN Specialty Global Clinical Leader Oncology 08/14/23 Ashleigh Enciso, G[employer] CUT[employer] MACHINE [address] [place] [address] Gold Leaf Roller Hematology/Oncology 10/21/23 Insole Beveler Relationship Specialty Start Date End Date Delroy Trotter MD [address] [place] [address] PCP - General Family Medicine 08/07/23 Phong Aj DO [address] [place] [address] Hematology/Oncology 08/14/23 Gretchen Del Castillo RN Specialty Global Clinical Leader Oncology 08/14/23 Ashleigh Enciso, G[employer] CUTTER MACHINE [address] [place] [address] Gold Leaf Roller Hematology/Oncology 10/21/23 Insole Beveler Relationship Specialty Start Date End Date Delroy Trotter MD [address] [place] [address] PCP - General Family Medicine 08/07/23 Phong Aj DO [address] [place] [address] Hematology/Oncology 08/14/23 Gretchen Del Castillo RN Specialty Global Clinical Leader Oncology 08/14/23 Ashleigh Enciso, GARMENT [employer] CUTTER MACHINE [address] [place] [address] Gold Leaf Roller Hematology/Oncology 10/21/23 Insole Beveler Relationship Specialty Start Date End Date Delroy Trotter MD [address] [place] [address] PCP - General Family Medicine 08/07/23 Phong Aj DO [address] [place] [address] Hematology/Oncology 08/14/23 Gretchen Del Castillo RN Specialty Global Clinical Leader Oncology 08/14/23 Ashleigh Enciso LISW [address] [place] [address] Gold Leaf Roller Hematology/Oncology 10/21/23 Insole Beveler Relationship Specialty Start Date End Date Delroy Trotter MD [address] [place] [address] PCP - General Family Medicine 08/07/23 Phong Aj DO [address] [place] [address] Hematology/Oncology 08/14/23 Gretchen Del Castillo RN Specialty Global Clinical Leader Oncology 08/14/23 Ashleigh Enciso LISW [address] [place] [address] Gold Leaf Roller Hematology/Oncology 10/21/23 Insole Beveler Relationship Specialty Start Date End Date Delroy Trotter MD [address] [facility] [address] [place] [address] PCP - General Family Medicine 08/07/23 Phong Aj DO [address] [place] [address] Hematology/Oncology 08/14/23 Gretchen Del Castillo RN Specialty Global Clinical Leader Oncology 08/14/23 Ashleigh Enciso LISW [address] [place] [address] Gold Leaf Roller Hematology/Oncology 10/21/23 Insole Beveler Relationship Specialty Start Date End Date Delroy Trotter MD [address] [place] [address] PCP - General Family Medicine 08/07/23 Phong Aj DO [address] [place] [address] Hematology/Oncology 08/14/23 Gretchen Del Castillo RN Specialty Global Clinical Leader Oncology 08/14/23 Ashleigh Enciso, GARMENT [employer] CUTTER MACHINE [address] [place] [address] Gold Leaf Roller Hematology/Oncology 10/21/23 Insole Beveler Relationship Specialty Start Date End Date Delroy Trotter MD [address] [place] [address] PCP - General Family Medicine 08/07/23 Phong Aj DO [address] [place] [address] Hematology/Oncology 08/14/23 Gretchen Del Castillo RN Specialty Global Clinical Leader Oncology 08/14/23 Ashleigh Enciso, GARMENT [employer] CUTTER MACHINE [address] [place] [address] Gold Leaf Roller Hematology/Oncology 10/21/23 Insole Beveler Relationship Specialty Start Date End Date Delroy Trotter MD [address] [place] [address] PCP - General Family Medicine 08/07/23 Phong Aj DO [address] [place] [address] Hematology/Oncology 08/14/23 Gretchen Del Castillo RN Specialty Global Clinical Leader Oncology 08/14/23 Ashleigh Enciso, GARMENT [employer] CUTTER MACHINE [address] [place] [address] Gold Leaf Roller Hematology/Oncology 10/21/23 Insole Beveler Relationship Specialty Start Date End Date Delroy Trotter MD [address] [place] [address] PCP - General Family Medicine 08/07/23 Phong Aj DO [address] [place] [address] Hematology/Oncology 08/14/23 Gretchen Del Castillo RN Specialty Global Clinical Leader Oncology 08/14/23 Ashleigh Enciso, GARMENT [employer] CUTTER MACHINE [address] [place] [address] Gold Leaf Roller Hematology/Oncology 10/21/23 Insole Beveler Relationship Specialty Start Date End Date Delroy Trotter MD [address] [place] [address] PCP - General Family Medicine 08/07/23 Phong Aj DO [address] [place] [address] Hematology/Oncology 08/14/23 Gretchen Del Castillo RN Specialty Global Clinical Leader Oncology 08/14/23 Ashleigh Enciso LISW [address] [place] [address] Gold Leaf Roller Hematology/Oncology 10/21/23 Insole Beveler Relationship Specialty Start Date End Date Delroy Trotter MD [address] [place] [address] PCP - General Family Medicine 08/07/23 Phong Aj DO [address] [place] [address] Hematology/Oncology 08/14/23 Gretchen Del Castillo RN Specialty Global Clinical Leader Oncology 08/14/23 Ashleigh Enciso, GARMENT [employer] CUTTER MACHINE [address] [place] [address] Gold Leaf Roller Hematology/Oncology 10/21/23 Insole Beveler Relationship Specialty Start Date End Date Delroy Trotter MD [address] [place] [address] PCP - General Family Medicine 08/07/23 Phong Aj DO [address] [place] [address] Hematology/Oncology 08/14/23 Gretchen Del Castillo RN Specialty Global Clinical Leader Oncology 08/14/23 Ashleigh Enciso, GARMENT [employer] CUTTER MACHINE [address] [place] [address] Gold Leaf Roller Hematology/Oncology 10/21/23 Insole Beveler Relationship Specialty Start Date End Date Delroy Trotter MD [address] [place] [address] PCP - General Family Medicine 08/07/23 Phong Aj DO [address] [place] [address] Hematology/Oncology 08/14/23 Gretchen Del Castillo RN Specialty Global Clinical Leader Oncology 08/14/23 Ashleigh Enciso, GARMENT [employer] CUTTER MACHINE [address] [place] [address] Gold Leaf Roller Hematology/Oncology 10/21/23 Insole Beveler Relationship Specialty Start Date End Date Delroy Trotter MD [address] [place] [address] PCP - General Family Medicine 08/07/23 Phong Aj DO [address] [place] [address] Hematology/Oncology 08/14/23 Doup, Gretchen, RN Specialty Global Clinical Leader Oncology 08/14/23 Ashleigh Enciso, GARMENT [employer] CUTTER MACHINE [address] [place] [address] Gold Leaf Roller Hematology/Oncology 10/21/23 Insole Beveler Relationship Specialty Start Date End Date Delroy Trotter MD [address] [place] [address] PCP - General Family Medicine 08/07/23 Phong Aj DO [address] [place] [address] Hematology/Oncology 08/14/23 Gretchen Del Castillo RN Specialty Global Clinical Leader Oncology 08/14/23 Ashleigh Enciso, GARMENT [employer] CUTTER MACHINE [address] [place] [address] Gold Leaf Roller Hematology/Oncology 10/21/23 Insole Beveler Relationship Specialty Start Date End Date Delroy Trotter MD [address] [place] [address] PCP - General Family Medicine 08/07/23 Phong Aj DO [address] [place] [place] [address] Hematology/Oncology 08/14/23 Gretchen Del Castillo RN Specialty Global Clinical Leader Oncology 08/14/23 Ashleigh Enciso, GARMENT PARTS CUTTER MACHINE [address] [place] [address] Gold Leaf Roller Hematology/Oncology 10/21/23 Insole Beveler Relationship Specialty Start Date End Date Delroy Trotter MD [address] [place] [address] PCP - General Family Medicine 08/07/23 Phong Aj DO [address] [place] [address] Hematology/Oncology 08/14/23 Gretchen Del Castillo RN Specialty Global Clinical Leader Oncology 08/14/23 Ashleigh Enciso, GARMENT PARTS CUTTER MACHINE [address] [place] [address] [employer] Leaf [employer]ler Hematology/Oncology 10/21/23 Insole Beveler Relationship Specialty Start Date End Date Delroy Trotter MD [address] [place] [address] PCP - General Family Medicine 08/07/23 Phong Aj DO [address] [place] [address] Hematology/Oncology 08/14/23 Gretchen Del Castillo RN Specialty Global Clinical Leader Oncology 08/14/23 Ashleigh Enciso, GARMENT [employer]S CUTTER MACHINE [address] [place] [address] [employer] Leaf Roller Hematology/Oncology 10/21/23 Insole Beveler Relationship Specialty Start Date End Date Delroy Trotter MD [address] [place] [address] PCP - General Family Medicine 08/07/23 Phong Aj DO [address] [place] [address] Hematology/Oncology 08/14/23 Gretchen Del Castillo RN Specialty Global Clinical Leader Oncology 08/14/23 Ashleigh Enciso, GARMENT [employer] CUTTER MACHINE [address] [place] [address] [employer] Leaf Roller Hematology/Oncology 10/21/23 Insole Beveler Relationship Specialty Start Date End Date Delroy Trotter MD [address] [place] [address] PCP - General Family Medicine 08/07/23 Phong Aj DO [address] [place] [address] Hematology/Oncology 08/14/23 Gretchen Del Castillo RN Specialty Global Clinical Leader Oncology 08/14/23 Ashleigh Enciso LISW [address] [place] [address] [employer] Leaf Roller Hematology/Oncology 10/21/23 Insole Beveler Relationship Specialty Start Date End Date Delroy Trotter MD [address] [place] [address] PCP - General Family Medicine 08/07/23 Phong Aj DO [address] [place] [address] Hematology/Oncology 08/14/23 Gretchen Del Castillo RN Specialty Global Clinical Leader Oncology 08/14/23 Ashleigh Enciso, GARMENT [employer] CUTTER MACHINE [address] [place] [address] [employer] Leaf Roller Hematology/Oncology 10/21/23 Insole Beveler Relationship Specialty Start Date End Date Delroy Trotter MD [address] [place] [address] PCP - General Family Medicine 08/07/23 Phong Aj DO [address] [place] [address] Hematology/Oncology 08/14/23 Gretchen Del Castillo RN Specialty Global Clinical Leader Oncology 08/14/23 Ashleigh Enciso, GARMENT [employer] CUTTER MACHINE [address] [place] [address] [employer] Leaf Roller Hematology/Oncology 10/21/23 Insole Beveler Relationship Specialty Start Date End Date Delroy Trotter MD [address] [place] [address] PCP - General Family Medicine 08/07/23 Phong Aj DO [address] [place] [address] Hematology/Oncology 08/14/23 Gretchen Del Castillo RN Specialty Global Clinical Leader Oncology 08/14/23 Ashleigh Enciso, GARMENT [employer] CUTTER MACHINE [address] [place] [address] [employer] Leaf Roller Hematology/Oncology 10/21/23 Insole Beveler Relationship Specialty Start Date End Date Delroy Trotter MD [address] [place] [address] PCP - General Family Medicine 08/07/23 Phong Aj DO [address] [place] [address] Hematology/Oncology 08/14/23 Gretchen Del Castillo RN Specialty Global Clinical Leader Oncology 08/14/23 Ashleigh Enciso, GARMENT [employer] CUTTER MACHINE [address] [place] [address] Gold Leaf Roller Hematology/Oncology 10/21/23 Insole Beveler Relationship Specialty Start Date End Date Delroy Trotter MD [address] [place] [address] PCP - General Family Medicine 08/07/23 Phong Aj DO [address] [place] [address] Hematology/Oncology 08/14/23 Gretchen Del Castillo RN Specialty Global Clinical Leader Oncology 08/14/23 Ashleigh Enciso, GARMENT [employer] CUTTER MACHINE [address] [place] [address] Gold Leaf Roller Hematology/Oncology 10/21/23 Insole Beveler Relationship Specialty Start Date End Date Delroy Trotter MD [address] [place] [address] PCP - General Family Medicine 08/07/23 Phong Aj DO [address] [place] [address] Hematology/Oncology 08/14/23 Gretchen Del Castillo RN Specialty Global Clinical Leader Oncology 08/14/23 Ashleigh Enciso, GARMENT [employer]S CUTTER MACHINE [address] [place] [address] Gold Leaf Roller Hematology/Oncology 10/21/23 Insole Beveler Relationship Specialty Start Date End Date Delroy Trotter MD [address] [place] [address] PCP - General Family Medicine 08/07/23 Phong Aj DO [address] [place] [address] Hematology/Oncology 08/14/23 Gretchen Del Castillo RN Specialty Global Clinical Leader Oncology 08/14/23 Ashleigh Enciso, GARMENT [employer]S CUTTER MACHINE [address] [place] [address] Gold Leaf Roller Hematology/Oncology 10/21/23 Insole Beveler Relationship Specialty Start Date End Date Delroy Trotter MD [address] [place] [address] PCP - General Family Medicine 08/07/23 Phong Aj DO [address] [place] [address] Hematology/Oncology 08/14/23 Gretchen Del Castillo RN Specialty Global Clinical Leader Oncology 08/14/23 Ashleigh Enciso, GARMENT [employer]S CUTTER MACHINE [address] [place] [address] Gold Leaf Roller Hematology/Oncology 10/21/23 Insole Beveler Relationship Specialty Start Date End Date Delroy Trotter MD [address] [place] [address] PCP - General Family Medicine 08/07/23 Phong Aj DO [address] [place] [address] Hematology/Oncology 08/14/23 Gretchen Del Castillo RN Specialty Global Clinical Leader Oncology 08/14/23 Ashleigh Enciso LISW [address] [place] [address] Gold Leaf Roller Hematology/Oncology 10/21/23 Insole Beveler Relationship Specialty Start Date End Date Delroy Trotter MD [address] [place] [address] PCP - General Family Medicine 08/07/23 Phong Aj DO [address] [place] [address] Hematology/Oncology 08/14/23 Gretchen Del Castillo RN Specialty Global Clinical Leader Oncology 08/14/23 Ashleigh Enciso LISW [address] [place] [address] Gold Leaf Roller Hematology/Oncology 10/21/23 Insole Beveler Relationship Specialty Start Date End Date Delroy Trotter MD [address] [place] [address] PCP - General Family Medicine 08/07/23 Phong Aj DO [address] [place] [address] Hematology/Oncology 08/14/23 Gretchen Del Castillo RN Specialty Global Clinical Leader Oncology 08/14/23 Ashleigh Enciso LISW [address] [place] [address] Gold Leaf Roller Hematology/Oncology 10/21/23 Insole Beveler Relationship Specialty Start Date End Date Delroy Trotter MD [address] [place] [address] PCP - General Family Medicine 08/07/23 Phong Aj DO [address] [place] [address] Hematology/Oncology 08/14/23 Gretchen Del Castillo RN Specialty Global Clinical Leader Oncology 08/14/23 Insole Beveler Relationship Specialty Start Date End Date Delroy Trotter MD [address] [place] [address] PCP - General Family Medicine 08/07/23 Phong Aj DO [address] [place] [address] Hematology/Oncology 08/14/23 Gretchen Del Castillo RN Specialty Global Clinical Leader Oncology 08/14/23 Insole Beveler Relationship Specialty Start Date End Date Delroy Trotter MD [address] [place] [address] PCP - General Family Medicine 08/07/23 Phong Aj DO [address] [place] [address] Hematology/Oncology 08/14/23 Gretchen Del Castillo RN Specialty Global Clinical Leader Oncology 08/14/23 Ashleigh Enciso LISW [address] [place] [address] Gold Leaf Roller Hematology/Oncology 10/21/23 Insole Beveler Relationship Specialty Start Date End Date Delroy Trotter MD [address] [place] [address] PCP - General Family Medicine 08/07/23 Phong Aj DO [address] [place] [address] Hematology/Oncology 08/14/23 Gretchen Del Castillo RN Specialty Global Clinical Leader Oncology 08/14/23 Ashleigh Enciso, GARMENT PARTS CUTTER MACHINE [address] [place] [address] Gold Leaf Roller Hematology/Oncology 10/21/23 Insole Beveler Relationship Specialty Start Date End Date Delroy Trotter MD [address] [place] [address] PCP - General Family Medicine 08/07/23 Phong Aj DO [address] [place] [address] Hematology/Oncology 08/14/23 Gretchen Del Castillo RN Specialty Global Clinical Leader Oncology 08/14/23 Ashleigh Enciso, GARMENT PARTS CUTTER MACHINE [address] [place] [address] Gold Leaf Roller Hematology/Oncology 10/21/23 Insole Beveler Relationship Specialty Start Date End Date Delroy Trotter MD [address] [place] [address] PCP - General Family Medicine 08/07/23 Phong Aj DO [address] [place] [address] Hematology/Oncology 08/14/23 Gretchen Del Castillo RN Specialty Global Clinical Leader Oncology 08/14/23 Ashleigh Enciso, PATRICK [address] [place] [address] Gold Leaf Roller Hematology/Oncology 10/21/23 Insole Beveler Relationship Specialty Start Date End Date Delroy Trotter MD [address] [place] [address] PCP - General Family Medicine 08/07/23 Phong Aj DO [address] [place] [address] Hematology/Oncology 08/14/23 Gretchen Del Castillo RN Specialty Global Clinical Leader Oncology 08/14/23 Ashleigh Enciso LISW [address] [place] [address] Gold Leaf Roller Hematology/Oncology 10/21/23 Insole Beveler Relationship Specialty Start Date End Date Delroy Trotter MD [address] [place] [address] PCP - General Family Medicine 08/07/23 Phong Aj DO [address] [place] [address] Hematology/Oncology 08/14/23 Gretchen Del Castillo RN Specialty Global Clinical Leader Oncology 08/14/23 Ashleigh Enciso LISW [address] [place] [address] Gold Leaf Roller Hematology/Oncology 10/21/23 Insole Beveler Relationship Specialty Start Date End Date Delroy Trotter MD [address] [place] [address] PCP - General Family Medicine 08/07/23 Phong Aj DO [address] [place] [address] Hematology/Oncology 08/14/23 Gretchen Del Castillo RN Specialty Global Clinical Leader Oncology 08/14/23 Ashleigh Enciso, PATRICK [address] [place] [address] Gold Leaf Roller Hematology/Oncology 10/21/23 Insole Beveler Relationship Specialty Start Date End Date Delroy Trotter MD [address] [place] [address] PCP - General Family Medicine 08/07/23 Phong Aj DO [address] [place] [address] Hematology/Oncology 08/14/23 Gretchen Del Castillo, RN Specialty Global Clinical Leader Oncology 08/14/23 Ashleigh Enciso LISW [address] [place] [address] Gold Leaf Roller Hematology/Oncology 10/21/23 Reason for Visit (unrecogniz ed section and content) Reason Comments Chemotherapy Treatment Specialty Diagnoses / Procedures Referred By Contac t Referred To Contact Diagnoses 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) Phong Aj DO [address] [place] [address] [facility] [address] [place] [address] Referral ID Status Reason Start Date Expiration Date V isits Requested Visits Authorized [id number] Authorized 08/12/2023 11/10/2023 99 99 Reason Comments Blood Draw (CVAD) Reason Comments CADD Pump D/C Neulasta Reason Comments CADD Pump D/C Specialty Diagnoses / Procedures Referred By Contac t Referred To Contact Diagnoses 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) [place] [address] [place] [address] [facility] [address] [place] [address] Referral ID Status Reason Start Date Expiration Date V isits Requested Visits Authorized [id number] Authorized 12/16/2023 03/15/2024 99 99 Reason Comments Port Flush Reason Comments Established Patient Reason Comments Radiology CT Specialty Diagnoses / Procedures Referred By Contac t Referred To Contact CT IMAGING Diagnoses Abnormal findings on diagnostic imaging of liver and biliary tract Procedures CT PANCREAS/PELVIS W IVCON CT ABD & PELVIS W/CONTRAST Tobi Nascimento MD [address] [place] [address] [facility] [place] [address] Referral ID Status Reason Start Date Expiration Date V isits Requested Visits Authorized [id number] Closed Auto-Generate d Referral 08/04/2023 09/02/2024 1 1 Reason Comments Appointment Reason Comments Results Reason Comments New Patient Specialty Diagnoses / Procedures Referred By Contac t Referred To Contact Oncology Diagnoses Pancreatic adenocarcinoma (HCC) Procedures CONSULT TO ONCOLOGY OFFICE/OUTPATIENT NEW HIGH MDM 60 MINUTES Tobi Nascimento MD [address] [place] [address] Referral ID Status Reason Start Date Expiration Date V isits Requested Visits Authorized [id number] Closed PCP Requested Referral 08/05/2023 08/04/2024 1 1 Reason Comments Global Clinical Leader - Other Introduction Reason Comments AVS 08/12/2023 Reason Comments First Time Treatment Education Folfirino x Reason Comments Global Clinical Leader - Other Treatment Plann ing Reason Comments Pancreatic Cancer Specialty Diagnoses / Procedures Referred By Contac t Referred To Contact Diagnoses Pancreatic adenocarcinoma (HCC) Procedures CONSULT TO MEDICAL GENETICS - CANCER MEDICAL GENETICS COUNSELING EACH 30 MINUTES Tobi Nascimento MD [address] [place] [address] [facility] [address] [place] [address] Referral ID Status Reason Start Date Expiration Date Visits Requested Visits Authorized [id number] Pending Review PCP Requested Referral Auto-Generate d Referral 08/05/2023 08/04/2024 1 1 Reason Comments Follow Up Reason Comments Nutrition Assessment Reason Comments medication questions Reason Comments Medication Question Reason Comments Benefits Investigation Reason Comments Established Patient Specialty Diagnoses / Procedures Referred By Contac t Referred To Contact Diagnoses 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) Phong Aj, DO [address] [place] [address] [facility] [address] [place] [address] Reason Comments Medication Problem Reason Comments AVS 09/22/23 Reason Onset Date Comments Refill Request 10/08/2023 Reason Comments Care Coordination Fever Reason Comments Global Clinical Leader - Other Hospital Discha rge Reason Comments Refill Request Reason Comments hydration Reason Comments Non-Chemotherapy Treatment Reason Comments Radiology CT Specialty Diagnoses / [facility] Diagnoses 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) Procedures CT CHEST W IVCON DIAGNOSTIC COMPUTED TOMOGRAPHY THORAX W/[place] [address] [place] [address] [place] [address] Referral ID Status Reason Start Date Expiration Date V isits Requested Visits Authorized [id number] Closed Auto-Generate d Referral 12/16/2023 01/14/2025 1 1 Reason Comments Appointment Confirmation Reason Comments Established Patient Reason Comments Research Consent [id number] Reason Comments Patient Update Reason Comments Consult Specialty Diagnoses / [facility] Ref[facility] To Contact CT IMAGING Diagnoses 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) Procedures CT CHEST WO IVCON DIAGNOSTIC COMPUTED TOMOGRAPHY THORAX W/O CNTRST Mascankit Phong A, DO [address] [place] [address] [place] [address] Referral ID Status Reason Start Date Expiration Date V isits Requested Visits Authorized [id number] Closed Auto-Generate d Referral 01/26/2024 02/24/2025 1 1 Specialty Diagnoses / Procedures [facility] Referred To Contact MR IMAGING Diagnoses 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) Abnormal CT of liver Procedures MRI LIVER WO/W IVCON MRI ABDOMEN W/O & W/CONTRAST MATERIAL Masci, Phong A, DO [address] [place] [address] [place] [address] Referral ID Status Reason Start Date Expiration Date V isits Requested Visits Authorized [id number] Closed Auto-Generate d Referral 01/13/2024 02/11/2025 1 1 Specialty Diagnoses / [facility] Ref[facility] To Contact CT IMAGING Diagnoses 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) Procedures CT CHEST W IVCON DIAGNOSTIC COMPUTED TOMOGRAPHY THORAX W/CONTRAST Phong Aj, DO [address] [place] [address] [place] [address] Referral ID Status Reason Start Date Expiration Date V isits Requested Visits Authorized [id number] Closed Auto-Generate d Referral 09/22/2023 10/21/2024 1 1 Reason Onset Date Comments Refill Request 02/17/2024 Reason Onset Date Comments Refill Request 02/20/2024 Reason Onset Date Comments Tumor Board Pancreaticobiliary 02/20/2024 L ocally adv. 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, being considered for SBRT vs long course therapy after diagnostic lap Reason Comments Patient Education Nurse Visit Inactive Administered Medications - up to 3 most recent administrations Administered Medications (un recognized section and content) Medication Order MAR Action Action Date Dose Rate Site lactated ringers iv infusion 30 mL/hr, INTRAVENOUS, CONTINUOUS, Starting on Fri08/06/23 at 1430, Until Fri08/07/23 at 0431, Preprocedure New Bag/Syringe/Bottle 08/06/2023 2:30 PM EST 30 mL/hr 30 mL/hr Inactive Administered Medications - up to 3 most recent administrations Medication Order MAR Action Action Date Dose Rate Site acetaminophen 650 mg tab(s) (TYLENOL) 650 mg, ORAL, EVERY 4 HOURS NEEDED, Starting on Fri08/18/23 at 1109, Until Fri08/19/23 at 0303, Mild Pain (1-3) - Enteral, If ordered PRN for pain, patient/guardian may elect to receive this medication for higher pain levels INSTEAD of the opioid, if preferred: Yes Inactive Administered Medications - up to 3 most recent administrations Medication Order MAR Action Action Date Dose Rate Site dexAMETHasone 10 mg in NaCl 0.9% 50 mL (DECADRON) 10 mg, INTRAVENOUS, ONCE, 1 dose, On Fri08/26/23 at 1000, Refrigerate. New Bag/Syringe/Bottle 08/26/2023 10:18 AM EDT 10 mg fluorouracil (ADRUCIL) 5,000 mg in NaCl 0.9% 102 mL in empty bag 5,000 mg (rounded from 5,016 mg = 2,400 mg/m2 2.09 m2 Treatment Plan BSA from Recorded weight), INTRAVENOUS, at 2.2 mL/hr, Administer over 46 Hours, ONCE, 1 dose, On Fri08/26/23 at 1000, exp 1000 09/02/23 Hazardous Chemotherapy Drug: Use appropriate PPE. Protect from Light. Apheresis and/or Portable Pump 08/26/2023 2:00 PM EDT 5,000 mg 2.2 mL/hr fosaprepitant 150 mg in NaCl 0.9% 250 mL (EMEND) 150 mg, INTRAVENOUS, Administer over 30 Minutes, ONCE, 1 dose, On Fri08/26/23 at 1000, Approximate Total Volume = 280 mL Mix in non-DEHP bag - Refrigerate New Bag/Syringe/Bottle 08/26/2023 10:42 AM EDT 150 mg leucovorin 836 mg in D5W 99.8 mL 836 mg (400 mg/m2 2.09 m2 Treatment Plan BSA from Recorded weight), INTRAVENOUS, Administer over 2 Hours, ONCE, 1 dose, On Fri08/26/23 at 1000, APPROXIMATE TOTAL VOLUME.; PROTECT FROM LIGHT ADMINISTER CONCURRENTLY WITH OXALIPLATIN. REFRIGERATE New Bag/Syringe/Bottle 08/26/2023 11:30 AM EDT 836 mg oxaliplatin 177.65 mg in D5W 575.53 mL (ELOXATIN) 177.65 mg (85 mg/m2 2.09 m2 Treatment Plan BSA from Recorded weight), INTRAVENOUS, Administer over 2 Hours, ONCE, 1 dose, On Fri08/26/23 at 1000, Administer concurrently with leucovorin. Approx Total Volume: exp 1600 08/27/23 (room temp) Hazardous Chemotherapy Drug: Use appropriate PPE. Antineoplastic Irritant with Vesicant Potential. Flush line with D5W before and after administration. New Bag/Syringe/Bottle 08/26/2023 11:30 AM EDT 177.65 mg palonosetron 0.25 mg injection (ALOXI) 0.25 mg, INTRAVENOUS, ONCE, 1 dose, On Fri08/26/23 at 1000, Flush IV line with NS prior to and following administration. Given 08/26/2023 10:12 AM EDT 0.25 mg Inactive Administered Medications - up to 3 most recent administrations Medication Order MAR Action Action Date Dose Rate Site dexAMETHasone 10 mg in NaCl 0.9% 50 mL (DECADRON) 10 mg, INTRAVENOUS, Administer over 15 Minutes, ONCE, 1 dose, On Fri09/09/23 at 0830, Refrigerate. New Bag/Syringe/Bottle 09/09/2023 8:36 AM EDT 10 mg fluorouracil (ADRUCIL) 5,000 mg in NaCl 0.9% 102 mL in empty bag 5,000 mg (rounded from 5,016 mg = 2,400 mg/m2 2.09 m2 Treatment Plan BSA from Recorded weight), INTRAVENOUS, at 2.2 mL/hr, Administer over 46 Hours, ONCE, 1 dose, On Fri09/09/23 at 0830, Expires: 09/16/23 @ 0900 Hazardous Chemotherapy Drug: Use appropriate PPE. Protect from Light. Apheresis and/or Portable Pump 09/09/2023 2:45 PM EDT 5,000 mg 2.2 mL/hr fosaprepitant 150 mg in NaCl 0.9% 250 mL (EMEND) 150 mg, INTRAVENOUS, Administer over 30 Minutes, ONCE, 1 dose, On Fri09/09/23 at 0830, Mix in non-DEHP bag - Refrigerate New Bag/Syringe/Bottle 09/09/2023 9:02 AM EDT 150 mg hyoscyamine sublingual 0.25 mg tab(s) (LEVSIN SL) 0.25 mg, SUBLINGUAL, ONCE, 1 dose, On Fri09/09/23 at 0830, Give 30 minutes prior to chemotherapy. Given 09/09/2023 8:31 AM EDT 0.25 mg Irinotecan 300 mg in D5W 555 mL (CAMPTOSAR) 300 mg (rounded from 313.5 mg = 150 mg/m2 2.09 m2 Treatment Plan BSA from Recorded weight), INTRAVENOUS, Administer over 90 Minutes, ONCE, 1 dose, On Fri09/09/23 at 0830, Approx Total Volume - Expires: 09/10/23 @ 0845 Hazardous Chemotherapy Drug: Use appropriate PPE. Antineoplastic Irritant. New Bag/Syringe/Bottle 09/09/2023 9:42 AM EDT 300 mg leucovorin 836 mg in D5W 99.8 mL 836 mg (400 mg/m2 2.09 m2 Treatment Plan BSA from Recorded weight), INTRAVENOUS, Administer over 2 Hours, ONCE, 1 dose, On Fri09/09/23 at 0830, Approx Total Volume - Expires: 09/10/23 @ 1445 PROTECT FROM LIGHT ADMINISTER CONCURRENTLY WITH OXALIPLATIN. REFRIGERATE New Bag/Syringe/Bottle 09/09/2023 12:00 PM EDT 836 mg oxaliplatin 177.65 mg in D5W 575.53 mL (ELOXATIN) 177.65 mg (85 mg/m2 2.09 m2 Treatment Plan BSA from Recorded weight), INTRAVENOUS, Administer over 2 Hours, ONCE, 1 dose, On Fri09/09/23 at 0830, Approx Total Volume - Expires: 09/10/23 @ 1445 Administer concurrently with leucovorin. Hazardous Chemotherapy Drug: Use appropriate PPE. Antineoplastic Irritant with Vesicant Potential. Flush line with D5W before and after administration. New Bag/Syringe/Bottle 09/09/2023 12:00 PM EDT 177.65 mg palonosetron 0.25 mg injection (ALOXI) 0.25 mg, INTRAVENOUS, ONCE, 1 dose, On Fri09/09/23 at 0830, Flush IV line with NS prior to and following administration. Given 09/09/2023 8:34 AM EDT 0.25 mg potassium chloride iv piggyback 60 mEq (20 mEq x 3 doses) 20 mEq, INTRAVENOUS, at 50-100 mL/hr, Administer over 1-2 Hours, EVERY 1 HOUR, 3 doses, First dose on Fri09/09/23 at 0900, Last dose on Fri09/09/23 at 1100, Dispensed as potassium chloride 20 mEq/100 mL x 3 = 60 mEq. Potassium 2.6 to 3 infuse 60mEq KCl IV over 3 hours. NONCYTOTOXIC VESICANT If ordered with infusion rate range, start with maximum infusion rate and decrease rate if infusion is not tolerated New Bag/Syringe/Bottle 09/09/2023 11:51 AM EDT 20 mEq 100 mL/hr New Bag/Syringe/Bottle 09/09/2023 10:43 AM EDT 20 mEq 100 mL/hr New Bag/Syringe/Bottle 09/09/2023 9:44 AM EDT 20 mEq 1 00 mL/hr Inactive Administered Medications - up to 3 most recent administrations Medication Order MAR Action Action Date Dose Rate Site pegfilgrastim-jmdb 6 mg injection (FULPHILA) 6 mg, SUBCUTANEOUS, ONCE, 1 dose, On Fri09/11/23 at 1400, Refrigerate - Protect From Light - Do Not Shake - Allow prefilled syringe to reach room temperature for at least 30 minutes prior to injection. Given 09/11/2023 2:00 PM EDT 6 mg Arm, Right Inactive Administered Medications - up to 3 most recent administrations Medication Order MAR Action Action Date Dose Rate Site dexAMETHasone 10 mg in NaCl 0.9% 50 mL (DECADRON) 10 mg, INTRAVENOUS, Administer over 15 Minutes, ONCE, 1 dose, On Fri09/23/23 at 0830, Refrigerate. New Bag/Syringe/Bottle 09/23/2023 8:50 AM EDT 10 mg fluorouracil (ADRUCIL) 5,000 mg in NaCl 0.9% 102 mL in empty bag 5,000 mg (rounded from 5,016 mg = 2,400 mg/m2 2.09 m2 Treatment Plan BSA from Recorded weight), INTRAVENOUS, at 2.2 mL/hr, Administer over 46 Hours, ONCE, 1 dose, On Fri09/23/23 at 0830, Expires: 09/30/23 @ 0900 Hazardous Chemotherapy Drug: Use appropriate PPE. Protect from Light. Apheresis and/or Portable Pump 09/23/2023 1:33 PM EDT 5,000 mg 2.2 mL/hr fosaprepitant 150 mg in NaCl 0.9% 250 mL (EMEND) 150 mg, INTRAVENOUS, Administer over 30 Minutes, ONCE, 1 dose, On Fri09/23/23 at 0830, Mix in non-DEHP bag - Refrigerate New Bag/Syringe/Bottle 09/23/2023 9:09 AM EDT 150 mg hyoscyamine sublingual 0.25 mg tab(s) (LEVSIN SL) 0.25 mg, SUBLINGUAL, ONCE, 1 dose, On Fri09/23/23 at 0830, Give 30 minutes prior to chemotherapy. Given 09/23/2023 8:47 AM EDT 0.25 mg Irinotecan 300 mg in D5W 555 mL (CAMPTOSAR) 300 mg (rounded from 313.5 mg = 150 mg/m2 2.09 m2 Treatment Plan BSA from Recorded weight), INTRAVENOUS, Administer over 90 Minutes, ONCE, 1 dose, On Fri09/23/23 at 0830, Approx Total Volume - Expires: 09/24/23 @ 0830 Hazardous Chemotherapy Drug: Use appropriate PPE. Antineoplastic Irritant. New Bag/Syringe/Bottle 09/23/2023 9:48 AM EDT 300 mg leucovorin 836 mg in D5W 99.8 mL 836 mg (400 mg/m2 2.09 m2 Treatment Plan BSA from Recorded weight), INTRAVENOUS, Administer over 2 Hours, ONCE, 1 dose, On Fri09/23/23 at 0830, Approx Total Volume - Expires: 09/24/23 @ 1430 PROTECT FROM LIGHT ADMINISTER CONCURRENTLY WITH OXALIPLATIN. REFRIGERATE New Bag/Syringe/Bottle 09/23/2023 11:23 AM EDT 836 mg oxaliplatin 177.65 mg in D5W 575.53 mL (ELOXATIN) 177.65 mg (85 mg/m2 2.09 m2 Treatment Plan BSA from Recorded weight), INTRAVENOUS, Administer over 2 Hours, ONCE, 1 dose, On Fri09/23/23 at 0830, Approx Total Volume - Expires: 09/24/23 @ 1430 Administer concurrently with leucovorin. Hazardous Chemotherapy Drug: Use appropriate PPE. Antineoplastic Irritant with Vesicant Potential. Flush line with D5W before and after administration. New Bag/Syringe/Bottle 09/23/2023 11:23 AM EDT 177.65 mg palonosetron 0.25 mg injection (ALOXI) 0.25 mg, INTRAVENOUS, ONCE, 1 dose, On Fri09/23/23 at 0830, Flush IV line with NS prior to and following administration. Given 09/23/2023 8:48 AM EDT 0.25 mg potassium chloride iv piggyback 60 mEq (20 mEq x 3 doses) 20 mEq, INTRAVENOUS, at 50-100 mL/hr, Administer over 1-2 Hours, EVERY 1 HOUR, 3 doses, First dose on Fri09/23/23 at 0900, Last dose on Fri09/23/23 at 1100, Dispensed as potassium chloride 20 mEq/100 mL x 3 = 60 mEq. Potassium 2.6 to 3 infuse 60mEq KCl IV over 3 hours. NONCYTOTOXIC VESICANT If ordered with infusion rate range, start with maximum infusion rate and decrease rate if infusion is not tolerated New Bag/Syringe/Bottle 09/23/2023 11:54 AM EDT 20 mEq 100 mL/hr New Bag/Syringe/Bottle 09/23/2023 10:53 AM EDT 20 mEq 100 mL/hr New Bag/Syringe/Bottle 09/23/2023 9:53 AM EDT 20 mEq 1 00 mL/hr Inactive Administered Medications - up to 3 most recent administrations Medication Order MAR Action Action Date Dose Rate Site pegfilgrastim-jmdb 6 mg injection (FULPHILA) 6 mg, SUBCUTANEOUS, ONCE, 1 dose, On [place] 09/25/23 at 1230, Refrigerate - Protect From Light - Do Not Shake - Allow prefilled syringe to reach room temperature for at least 30 minutes prior to injection. Given 09/25/2023 12:15 PM EDT 6 mg Arm, Right PRN Active and Recently Administ ered Medications (unrecognized section and content) Medication Order 08/16/2023 08/17/2023 08/18/2023 acetaminophen 650 mg tab(s) (TYLENOL) 650 mg, ORAL, EVERY 4 HOURS NEEDED, Starting on Fri08/18/23 at 1109, Until Fri08/19/23 at 0303, Mild Pain (1-3) - Enteral, If ordered PRN for pain, patient/guardian may elect to receive this medication for higher pain levels INSTEAD of the opioid, if preferred: Yes fentaNYL 50 mcg/mL injection (SUBLIMAZE) (CANCELED) INTRAVENOUS, X (OR/PROCEDURE) PRN, Starting on Fri08/18/23 at 1032, Until Fri08/18/23 at 1108, Intraprocedure 1032 (Given - Provid er: Daysi Forrester RN) lidocaine (PF) 20 mg/mL (2 %) injection (XYLOCAINE) (CANCELED) SUBCUTANEOUS, X (OR/PROCEDURE) PRN, Starting on Fri08/18/23 at 1032, Until Fri08/18/23 at 1108, Intraprocedure 1037 (Given - Provid er: Allan Kerr MD - Comment: bx site) midazolam (PF) injection (VERSED) (CANCELED) INTRAVENOUS, X (OR/PROCEDURE) PRN, Starting on Fri08/18/23 at 1032, Until Fri08/18/23 at 1108, Intraprocedure 1032 (Given - Provid er: Daysi Forrester RN) FOR RECORDS PERTAINING TO PATIENTS WHO ARE [...] BE BASED ON THE PRIMARY CLINICAL RECORDS. [facility]. provides no warranty or guarantee of the accuracy or completeness of information in this document.
--- NOTE | 2024-03-29 07:33 | US_ITS ---
STUDY: ABDOMINAL ULTRASOUND - RIGHT UPPER QUADRANT; ELASTOGRAPHY REASON FOR VISIT: Male, 74 years old. NAFLD. TECHNIQUE: Ultrasound evaluation of the right upper quadrant was performed with real-time and static carter-scale imaging. Point quantification shear wave elastography was performed (PeriGen). TECHNICAL QUALITY: Adequate. COMPARISON: Comparison is made with prior study dated May 19, 2023. FINDINGS: Liver: The liver is enlarged and measures 18.7 cm. There is increased echogenicity consistent with fatty infiltration. The bile ducts are within normal limits. A biliary stent is seen within the common bile duct. There is hepatic color flow. The direction of portal flow is hepatopetal. There is no demonstrated mass lesion. Median liver stiffness measured 15.6 kPa. Gallbladder: The patient is status post cholecystectomy. Common Bile Duct (C.B.D.): The common bile duct measures 2.6 mm. Pancreas: There is normal echogenicity of the visualized pancreas. There is no demonstrated pancreatic mass or cyst. Right Kidney: Normal size of the right kidney. The right kidney measures 11.3 cm x 5 cm x 5.7 cm. Normal renal cortex. The right cortex measures 1.6 cm. There is no demonstrated renal mass or cyst. There is no right hydronephrosis. US/ABD Limited w/ Elastography IMPRESSION: 1. Liver stiffness measures 15.6 kPa compatible with F3-F4 (Moderate to severe liver fibrosis) Metavir score. 2. Status post cholecystectomy. 3. A stent is seen within the common bile duct. Electronically Signed: Trent Polk MD at 10:38 EDT ,
== END | disposition home or self-care (01) ==
PROVIDERS: PCP Family Medicine; Referring Provider Internal Medicine; Visit Provider Internal Medicine
DX: Z02.89 Encounter for other administrative examinations (principal); C25.9 Malignant neoplasm of pancreas, unspecified; K76.0 Fatty (change of) liver, not elsewhere classified
CPT/HCPCS: 76705; 76981

== ENCOUNTER → 2024-04-23 | Outpatient (CLI) | payer MEDICARE, SELFPAY | END | disposition home or self-care (01) | LOC: LABSPEC 14:35 | PROVIDERS: PCP Family Medicine; Visit Provider Family Medicine | DX: N39.0 Urinary tract infection, site not specified (principal) | CPT/HCPCS: 87086; 87088 ==

== ENCOUNTER → 2024-06-08 | Outpatient (CLI) | payer MEDICARE, SELFPAY ==
[2024-06-08 09:58] LABS: Absolute Lymphocyte Count 1.11 X10^3/uL (0.83-4.51); Absolute Neutrophil Count 9.5 X10^3/uL (2.0-7.7); Basophil# 0.07 X10^3/uL; Basophil% 0.6 % (0-1); Eosinophil# 0.14 X10^3/uL; Eosinophils% 1.2 % (0-5); Hematocrit 28.1 % (40-54); Hemoglobin 8.8 g/dL (13.0-16.5); Lymphocyte # 1.11 X10^3/ul (0.83-4.51); Lymphocyte % 9.5 % (19-41); Mean Corp Hgb Conc 31.3 g/dL (32-36); Mean Corpuscular Hgb 28.8 pg (27.0-32.0); Mean Corpuscular Volume 91.8 fL (80-94); Mean Platelet Vol. 10.8 fl (6.2-12.0); Monocyte# 0.77 X10^3/uL; Monocyte% 6.6 % (0-10); NRBC Flagged by Analyzer 0 % (0-5); Neutrophil # 9.46 X10^3/uL (2.7-7.7); Neutrophil % 81.2 % (47-70); Platelet Count 259 K/mm3 (150-450); RBC Distribution Width CV 14.7 % (11.6-14.6); RBC Distribution Width SD 48.8 fl (35.1-43.9); Red Blood Count 3.06 M/mm3 (4.6-6.2); White Blood Count 11.7 K/mm3 (4.4-11.0)
[2024-06-08 10:25] LABS: Hemoglobin A1c 5.6 % (3.8-5.6)
[2024-06-08 12:57] LABS: ALB/GLOB Ratio 0.7 RATIO (0.9-2.4); AST(SGOT) 35 U/L (15-37); Alanine Aminotransfer ALT/SGPT 39 U/L (16-61); Albumin, Serum 2.8 g/dL (3.2-5.0); Alkaline Phosphatase 290 U/L (45-117); Anion Gap 9 (5-15); BUN 20 mg/dL (7-18); BUN/Creat Ratio 14.4 RATIO (10-20); Calcium,Total 8.8 mg/dL (8.5-10.1); Chloride 114 mmol/L (98-107); Cholesterol 108 mg/dL (200); Creatinine, Serum 1.39 mg/dL (0.70-1.30); EST Glomerular Filtration Rate 53 mL/min (>60); Est Glom Filt Rate - Afr Amer 65 mL/min (>60); Globulin 3.8 g/dL (2.2-4.2); Glucose 154 mg/dL (74-106); High Density Lipoprotein 59 mg/dL; Potassium 3.1 mmol/L (3.5-5.1); Protein, Total 6.6 g/dL (6.4-8.2); Sodium Level 140 mmol/L (136-145); Triglycerides 139 mg/dL; Very Low Density Lipoprotein 28 mg/dL (5-40)
[2024-06-10 10:58] LABS: Iron 25 ug/dL (65-175); Iron Binding Capacity,Total 273 ug/dL (250-450)
== END | disposition home or self-care (01) ==
LOC: MFPLAB 09:01
PROVIDERS: PCP Family Medicine; Referring Provider Family Medicine; Visit Provider Family Medicine
DX: E11.59 Type 2 diabetes mellitus with other circulatory complications (principal); D64.9 Anemia, unspecified
CPT/HCPCS: 36415; 80053; 80061; 83036; 83540; 83550; 85025

== ENCOUNTER → 2024-09-03 | Outpatient (CLI) | payer MEDICARE, SELFPAY ==
[2024-09-03 15:24] LABS: Absolute Lymphocyte Count 1.57 X10^3/uL (0.83-4.51); Absolute Neutrophil Count 6.9 X10^3/uL (2.0-7.7); Basophil# 0.07 X10^3/uL; Basophil% 0.7 % (0-1); Eosinophil# 0.18 X10^3/uL; Eosinophils% 1.8 % (0-5); Hematocrit 28.6 % (40-54); Hemoglobin 9.1 g/dL (13.0-16.5); Lymphocyte # 1.57 X10^3/ul (0.83-4.51); Lymphocyte % 16.1 % (19-41); Mean Corp Hgb Conc 31.8 g/dL (32-36); Mean Corpuscular Hgb 27.2 pg (27.0-32.0); Mean Corpuscular Volume 85.4 fL (80-94); Mean Platelet Vol. 10.7 fl (6.2-12.0); Monocyte# 1.01 X10^3/uL; Monocyte% 10.3 % (0-10); NRBC Flagged by Analyzer 0 % (0-5); Neutrophil # 6.87 X10^3/uL (2.7-7.7); Neutrophil % 70.5 % (47-70); Platelet Count 258 K/mm3 (150-450); RBC Distribution Width CV 15.9 % (11.6-14.6); Red Blood Count 3.35 M/mm3 (4.6-6.2); White Blood Count 9.8 K/mm3 (4.4-11.0)
[2024-09-03 16:42] LABS: FOLATES,SERUM (FOLIC ACID) 6.68 ng/mL (4.60-34.80)
[2024-09-03 18:25] LABS: Hemoglobin A1c 7.5 % (<=5.6)
[2024-09-03 19:40] LABS: Cholesterol 119 mg/dL (<=200); High Density Lipoprotein 53 mg/dL; Low Density Lipoprotein Calc. 42 mg/dL; Triglycerides 121 mg/dL; Very Low Density Lipoprotein 24 mg/dL (5-40); cholesterol:hdl ratio screen 2.24
[2024-09-03 20:28] LABS: Ferritin 1534 ng/mL (37-417); Iron 32 ug/dL (65-175); Iron Binding Capacity,Unsat 184 ug/dL (228-428); Vitamin B12 649 pg/mL (180-914)
[2024-09-03 21:36] LABS: ALB/GLOB Ratio 0.9 RATIO (0.9-2.4); AST(SGOT) 40 U/L (<=37); Alanine Aminotransfer ALT/SGPT 18 U/L (<=46); Albumin, Serum 3.2 g/dL (3.4-4.8); Alkaline Phosphatase 194 U/L (40-129); Anion Gap 16 (5-15); BUN 23 mg/dL (4-19); BUN/Creat Ratio 14.4 RATIO (10-20); Calcium,Total 9.1 mg/dL (7.6-11.0); Carbon Dioxide 23.4 mmol/L (21.0-32.0); Chloride 99 mmol/L (98-108); Creatinine, Serum 1.62 mg/dL (0.70-1.20); EST Glomerular Filtration Rate 45 (>60); Globulin 3.5 g/dL (2.2-4.2); Glucose 160 mg/dL (70-99); Potassium 2.7 mmol/L (3.3-5.1); Protein, Total 6.7 g/dL (5.9-8.4); Sodium Level 138 mmol/L (133-145); Total Bilirubin 0.69 mg/dL (0.00-1.30)
[2024-09-05 08:07] LABS: Prealbumin 14 mg/dL (9-32)
== END | disposition home or self-care (01) ==
LOC: MFPLAB 12:02
PROVIDERS: PCP Family Medicine; Referring Provider Family Medicine; Visit Provider Family Medicine
DX: E11.8 Type 2 diabetes mellitus with unspecified complications (principal); D64.9 Anemia, unspecified; E46 Unspecified protein-calorie malnutrition
CPT/HCPCS: 36415; 80053; 80061; 82607; 82728; 82746; 83036; 83540; 83550; 84134; 85025

== ENCOUNTER → 2024-09-07 | Outpatient (CLI) | payer MEDICARE, SELFPAY ==
[2024-09-07 16:23] LABS: Ferritin 1276 ng/mL (37-417); Vitamin B12 582 pg/mL (180-914)
[2024-09-07 16:26] LABS: Anion Gap 13 (5-15); BUN 24 mg/dL (4-19); BUN/Creat Ratio 16.1 RATIO (10-20); Calcium,Total 8.7 mg/dL (7.6-11.0); Carbon Dioxide 24.6 mmol/L (21.0-32.0); Chloride 102 mmol/L (98-108); Creatinine, Serum 1.48 mg/dL (0.70-1.20); EST Glomerular Filtration Rate 50 (>60); Glucose 245 mg/dL (70-99); Potassium 3.9 mmol/L (3.3-5.1); Sodium Level 140 mmol/L (133-145)
[2024-09-07 18:00] LABS: Microalbumin,Random Urine 42.3 mg/L (NO RANGE EST.); Microalbumin:Creatinine Ratio 458.8 mg/g CRE
== END | disposition home or self-care (01) ==
LOC: LAB.FUTURE 12:33
PROVIDERS: PCP Family Medicine; Referring Provider Family Medicine; Visit Provider Family Medicine
DX: E11.8 Type 2 diabetes mellitus with unspecified complications (principal); D64.9 Anemia, unspecified
CPT/HCPCS: 36415; 80048; 82043; 82570; 82607; 82728

== ENCOUNTER → 2024-09-29 | Outpatient (CLI) | payer MEDICARE, SELFPAY ==
[2024-09-29 17:46] LABS: Absolute Lymphocyte Count 1.64 X10^3/uL (0.83-4.51); Absolute Neutrophil Count 6.5 X10^3/uL (2.0-7.7); Eosinophil# 0.58 X10^3/uL; Hematocrit 28.7 % (40-54); Hemoglobin 8.9 g/dL (13.0-16.5); Lymphocyte # 1.64 X10^3/ul (0.83-4.51); Lymphocyte % 16.9 % (19-41); Mean Corpuscular Hgb 27.1 pg (27.0-32.0); Mean Corpuscular Volume 87.5 fL (80-94); Mean Platelet Vol. 10.9 fl (6.2-12.0); Monocyte# 0.85 X10^3/uL; Monocyte% 8.7 % (0-10); NRBC Flagged by Analyzer 0 % (0-5); Neutrophil # 6.47 X10^3/uL (2.7-7.7); Neutrophil % 66.6 % (47-70); Platelet Count 320 K/mm3 (150-450); RBC Distribution Width CV 15.8 % (11.6-14.6); RBC Distribution Width SD 50.4 fl (35.1-43.9); Red Blood Count 3.28 M/mm3 (4.6-6.2); White Blood Count 9.7 K/mm3 (4.4-11.0)
[2024-09-29 18:15] LABS: AST(SGOT) 44 U/L (<=37); Alanine Aminotransfer ALT/SGPT 23 U/L (<=46); Albumin, Serum 3.6 g/dL (3.4-4.8); Alkaline Phosphatase 319 U/L (40-129); Anion Gap 13 (5-15); BUN 26 mg/dL (4-19); BUN/Creat Ratio 16.2 RATIO (10-20); Calcium,Total 9.6 mg/dL (7.6-11.0); Carbon Dioxide 18.6 mmol/L (21.0-32.0); Chloride 104 mmol/L (98-108); Creatinine, Serum 1.62 mg/dL (0.70-1.20); EST Glomerular Filtration Rate 45 (>60); Globulin 3.6 g/dL (2.2-4.2); Glucose 171 mg/dL (70-99); Potassium 4.5 mmol/L (3.3-5.1); Protein, Total 7.2 g/dL (5.9-8.4); Sodium Level 136 mmol/L (133-145)
[2024-10-01 04:07] LABS: Carbohydrate AG 19-9 57 U/mL (0-35)
== END | disposition home or self-care (01) ==
LOC: MFPLAB 15:39
PROVIDERS: PCP Family Medicine; Referring Provider Family Medicine; Visit Provider Family Medicine
DX: C25.9 Malignant neoplasm of pancreas, unspecified (principal); E11.59 Type 2 diabetes mellitus with other circulatory complications; D64.9 Anemia, unspecified
CPT/HCPCS: 36415; 80053; 85025; 86301

== ENCOUNTER → 2024-11-18 | Outpatient (CLI) | payer MEDICARE, SELFPAY ==
[2024-11-18 11:58] LABS: Red Blood Cells-Urine 0 SEEN /hpf (0-5); Squamous Epithelial Cells - UA 0 SEEN /hpf (0-5)
[2024-11-18 15:58] LABS: Absolute Lymphocyte Count 0.83 X10^3/uL (0.83-4.51); Absolute Neutrophil Count 5.1 X10^3/uL (2.0-7.7); Basophil# 0.07 X10^3/uL; Eosinophil# 0.24 X10^3/uL; Eosinophils% 3.4 % (0-5); Hematocrit 28.5 % (40-54); Hemoglobin 8.6 g/dL (13.0-16.5); Lymphocyte # 0.83 X10^3/ul (0.83-4.51); Lymphocyte % 11.9 % (19-41); Mean Corp Hgb Conc 30.2 g/dL (32-36); Mean Corpuscular Hgb 25.8 pg (27.0-32.0); Mean Corpuscular Volume 85.6 fL (80-94); Mean Platelet Vol. 11.6 fl (6.2-12.0); Monocyte# 0.72 X10^3/uL; Monocyte% 10.3 % (0-10); NRBC Flagged by Analyzer 0 % (0-5); Neutrophil # 5.08 X10^3/uL (2.7-7.7); Neutrophil % 73.1 % (47-70); Platelet Count 201 K/mm3 (150-450); RBC Distribution Width CV 15.6 % (11.6-14.6); RBC Distribution Width SD 48.4 fl (35.1-43.9); Red Blood Count 3.33 M/mm3 (4.6-6.2)
[2024-11-18 16:06] LABS: ALB/GLOB Ratio 1.1 RATIO (0.9-2.4); AST(SGOT) 72 U/L (<=37); Alanine Aminotransfer ALT/SGPT 57 U/L (<=46); Albumin, Serum 3.6 g/dL (3.4-4.8); Alkaline Phosphatase 585 U/L (40-129); Anion Gap 13 (5-15); BUN 29 mg/dL (4-19); BUN/Creat Ratio 17.3 RATIO (10-20); Calcium,Total 9.4 mg/dL (7.6-11.0); Carbon Dioxide 20.5 mmol/L (21.0-32.0); Chloride 103 mmol/L (98-108); Cholesterol 129 mg/dL (<=200); Creatinine, Serum 1.66 mg/dL (0.70-1.20); EST Glomerular Filtration Rate 44 (>60); Globulin 3.4 g/dL (2.2-4.2); Glucose 195 mg/dL (70-99); High Density Lipoprotein 64 mg/dL; Low Density Lipoprotein Calc. 46 mg/dL; Potassium 3.6 mmol/L (3.3-5.1); Sodium Level 136 mmol/L (133-145); Total Bilirubin 0.46 mg/dL (0.00-1.30); Triglycerides 95 mg/dL; Very Low Density Lipoprotein 19 mg/dL (5-40); cholesterol:hdl ratio screen 2.01
[2024-11-18 16:19] LABS: Hemoglobin A1c 5.8 % (<=5.6)
[2024-11-18 20:32] LABS: Color, Urine Yellow (Yellow); Glucose, Dipstick 50 mg/dl (Normal); Ketone-Dipstick Negative (Negative); Leukocyte Esterase-Dipstick 25 /ul (Negative); Nitrite-Dipstick Negative (Negative); Occult Blood-Urine Negative /ul (Negative); Protein-Dipstick 30 mg/dl (Negative); Urine Bilirubin Dipstick Negative (Negative); Urine Clarity Clear (Clear); Urine Urobilinogen Normal (Normal)
[2024-11-18 20:55] LABS: Microalbumin,Random Urine 39.9 mg/L (NO RANGE EST.); Microalbumin:Creatinine Ratio 20.9 mg/g CRE
[2024-11-18 21:51] LABS: Bacteria 2+ /hpf (None Seen); Calcium Oxalate Crystals Ur 2+ /hpf (<or=2+); Mucous, Urine 1+ /hpf (<or=2+); White Blood Cells 0-5 SEEN /hpf (0-5)
[2024-11-20 11:08] LABS: Carbohydrate AG 19-9 52 U/mL (0-35)
== END | disposition home or self-care (01) ==
LOC: MTLAB 11:37
PROVIDERS: PCP Family Medicine; Referring Provider Family Medicine; Visit Provider Family Medicine
DX: C25.9 Malignant neoplasm of pancreas, unspecified (principal); E11.69 Type 2 diabetes mellitus with other specified complication
CPT/HCPCS: 36415; 80053; 80061; 81001; 82043; 82570; 83036; 85025; 86301

== ENCOUNTER → 2024-12-04 | Outpatient (CLI) | payer MEDICARE, SELFPAY | END | disposition home or self-care (01) | LOC: LABSPEC 11:27 | PROVIDERS: PCP Family Medicine | DX: C25.9 Malignant neoplasm of pancreas, unspecified (principal); R10.9 Unspecified abdominal pain | CPT/HCPCS: 82274 ==

== ENCOUNTER → 2024-12-20 | Outpatient (CLI) | payer MEDICARE, SELFPAY ==
[2024-12-20 14:46] LABS: Hematocrit 23.6 % (40-54); Hemoglobin 7.6 g/dL (13.0-16.5); Immature Granulocytes Count 0.080 X10^3/uL (0.0-0.0); Mean Corp Hgb Conc 32.2 g/dL (32-36); Mean Corpuscular Volume 81.4 fL (80-94); Mean Platelet Vol. 12.4 fl (6.2-12.0); NRBC Flagged by Analyzer 0 % (0-5); Platelet Count 190 K/mm3 (150-450); RBC Distribution Width CV 17.4 % (11.6-14.6); RBC Distribution Width SD 50.9 fl (35.1-43.9); Red Blood Count 2.90 M/mm3 (4.6-6.2); White Blood Count 10.7 K/mm3 (4.4-11.0)
[2024-12-20 15:06] LABS: AST(SGOT) 108 U/L (<=37); Alanine Aminotransfer ALT/SGPT 47 U/L (<=46); Albumin, Serum 2.6 g/dL (3.4-4.8); Alkaline Phosphatase 464 U/L (40-129); Bilirubin, Direct 0.35 mg/dL (0.00-0.30); Globulin 2.8 g/dL (2.2-4.2)
== END | disposition home or self-care (01) ==
LOC: LABSPEC 14:21
PROVIDERS: PCP Family Medicine; Referring Provider Internal Medicine; Visit Provider Internal Medicine
DX: K75.81 Nonalcoholic steatohepatitis (NASH) (principal); A41.50 Gram-negative sepsis, unspecified
CPT/HCPCS: 80076; 82565; 85025

== ENCOUNTER → 2025-03-03 | Outpatient (CLI) | payer MEDICARE, SELFPAY ==
--- NOTE | 2025-03-03 | FLU_PTH ---
PATIENT: KRISTIN LARA LOC: [facility]#:[id number] AGE/SX: 74/M ROOM: RE03/03/[address]: Dr. Phong Aj DO : 1950 BED: DIS: 03/03/2025 SPEC #: [id number] RECD: 03/03/25 16:23 STATUS: GARY MANDO #: [id number] HASMUKH: 03/03/25 00:[address]: Phong Aj DEPT: CYTOLOGY RECD BY: Margaret Pacheco ENTERED: 03/04/25 08:16 SP TYPE: Fluid OTHR DR: Dr. Michelet Trotter MD Tissues: A - PARACENTESIS FLUID Procedures: Immunohistochemical Stains Special Stain Group II Surgery Specimen Level IV Cytospin Fluid IHC Stain ADDITIONAL HEADER OPERATION: Paracentesis fluid PRE-OP DIAGNOSIS: Ascites TISSUE SUBMITTED: A- Paracentesis fluid for cytology DIAGNOSIS CYTOLOGY A. Peritoneal cavity, ascites, paracentesis (cytospin, cellblock): * Atypical cells, favor reactive mesothelial cells - see note. Note: IHC is performed on the cellblock. CD68+ histiocytes, CD45+ lymphocytes, and Calretinin+ mesothelial cells are identified. BerEp4 and MOC31 are negative for epithelial cells. WT-1 is negative. These findings support a benign reactive process. CYTOLOGY STUDY Slides are reviewed. All matched controls reacted appropriately. These tests were developed and their performance characteristics determined by [facility]. They may not have been cleared or approved by the U.S. Food and Drug Administration. The FDA has determined that such clearance or approval is not necessary. The above immunohistochemical markers and/or special stains have been reviewed by the Pathologist. CYTOLOGY GROSS A. Received is 100 ml of cloudy-yellow fluid labeled with the patient's name and and designated per the requisition as Paracentesis fluid. Submitted for cytology and cell block preparation. Mr 03/04/2025 CPT: 20515,[id number]
--- NOTE | 2025-03-03 13:35 | US_ITS ---
PROCEDURE: PARACENTESIS WITH US 03/03/2025 REASON FOR EXAM: NEOPLASM OF PANCREAS TECHNIQUE: PARACENTESIS WITH US The procedure as well as the benefits and possible complications including infection and bleeding were explained to the patient. Informed consent was obtained. The right upper quadrant was prepped and draped in the usual sterile fashion. Following anesthetic application, a 5 [place] Islander catheter was placed into the right upper quadrant. 2250 mL of cortney colored fluid was aspirated. A sample was sent to the laboratory. COMPARISON: None FINDINGS: Successful ultrasound-guided paracentesis. US/Paracentesis with US IMPRESSION: Successful ultrasound-guided paracentesis. The patient tolerated the procedure well. [facility]
[2025-03-03] MEDS: Lidocaine 2% (20 ml mdv) 20 ML Vial INFILT (13:57)
[2025-03-03 14:22] VITALS: BP 118/71; PULSE 72; RESP 18; O2SAT 99
[2025-03-03 14:24] VITALS: BP 115/69; PULSE 69; RESP 18; O2SAT 98
--- NOTE | 2025-03-03 14:28 | OP.PCM_ITS ---
Multi Select Codes Radiology Radiology US Procedures: [id number] Paracentesis Operative Report (Standard) Operative Information Date of Procedure: 03/03/25 Pre-Operative Diagnosis: Ascites, malignant neoplasm of the pancreas Post-Operative Diagnosis: Ascites, malignant neoplasm of the pancreas Surgery/Procedure Performed: Ultrasound-guided paracentesis assistant curator: No Type of Anesthesia: Local Procedure Start Time: 13:52 Procedure Stop Time: 14:13 Select all DRAINS/GRAFTS/IMPLANTS that apply: None Estimated Blood Loss: 0 Specimen collected: Yes Description of specimen(s) removed: 100 mL of clear yellow fluid Description of surgery: PROCEDURE: Ultrasound guided paracentesis ORDERING PROVIDER: Dr. Aj INDICATION: Male, 74 years old. Ascites, malignant neoplasm of the pancreas. PROVIDER: NIKOS Chen TECHNIQUE: The risks, benefits, and alternatives to the procedure were explained to the patient. The specific risks of bleeding, infection, and damage to bowel were detailed and accepted. Witnessed informed consent was obtained. The abdomen was ultrasonographically surveyed. An appropriate pocket of fluid was identified in the right upper quadrant. The skin was prepped with chlorhexidine and sterile field established. 2% lidocaine was used for local anesthetic. Using ultrasound guidance, the peritoneal cavity was accessed with a 5-Spanish paracentesis needle/catheter system. The trocar was removed. A total of 2250 ml of clear yellow colored fluid was removed from the peritoneal cavity. A sample was sent to the lab for diagnostic purposes. The catheter was removed and a sterile dressing was applied. The procedure was well tolerated without any immediate complications. IMPRESSION: Successful ultrasound guided paracentesis with right upper quadrant access site. Surgical Findings: None Complications Complications: No
== END | disposition home or self-care (01) ==
PROVIDERS: PCP Family Medicine; Referring Provider Internal Medicine Hematology & Oncology; Visit Provider Internal Medicine Hematology & Oncology
DX: R18.8 Other ascites (principal); C25.0 Malignant neoplasm of head of pancreas
CPT/HCPCS: 49083; 88108; 88305; 88313

== ENCOUNTER → 2025-03-10 | Outpatient (CLI) | payer MEDICARE, SELFPAY ==
--- NOTE | 2025-03-10 09:50 | US_ITS ---
PROCEDURE: PARACENTESIS WITH US 03/10/2025 REASON FOR EXAM: NEOPLASM OF PANCREAS TECHNIQUE: PARACENTESIS WITH US COMPARISON: 03/03/2025 FINDINGS: After obtaining signed informed consent, patient was placed in supine position semi reclined in the area of pocket of fluid is located in the right lower quadrant by ultrasound. The area was prepped and draped in the usual sterile fashion and local anesthesia achieved with 1% lidocaine. A 5 Macedonian catheter was then place into the peritoneum with drainage of 3150 cc clear fluid. The patient tolerated the procedure well with no immediate postprocedural complications. US/Paracentesis with US IMPRESSION: Successful ultrasound-guided paracentesis. Patient left the department in stab le condition. Reading Location: [place] [address]
--- NOTE | 2025-03-10 09:50 | US_ITS ---
PROCEDURE: PARACENTESIS WITH US 03/10/2025 REASON FOR EXAM: NEOPLASM OF PANCREAS TECHNIQUE: PARACENTESIS WITH US COMPARISON: 03/03/2025 FINDINGS: After obtaining signed informed consent, patient was placed in supine position semi reclined in the area of pocket of fluid is located in the right lower quadrant by ultrasound. The area was prepped and draped in the usual sterile fashion and local anesthesia achieved with 1% lidocaine. A 5 Bangladeshi catheter was then place into the peritoneum with drainage of 3150 cc clear fluid. The patient tolerated the procedure well with no immediate postprocedural complications. US/Paracentesis with US IMPRESSION: Successful ultrasound-guided paracentesis. Patient left the department in stab le condition. Reading Location: [place] [address]
[2025-03-10] MEDS: Lidocaine 2% (20 ml mdv) 20 ML Vial INFILT (10:15)
[2025-03-10 10:52] VITALS: BP 160/92; PULSE 89; RESP 18; O2SAT 99
[2025-03-10 10:53] VITALS: BP 140/89; PULSE 86; RESP 18; O2SAT 98
== END | disposition home or self-care (01) ==
LOC: US 09:49
PROVIDERS: PCP Family Medicine; Referring Provider Internal Medicine Hematology & Oncology; Visit Provider Internal Medicine Hematology & Oncology
DX: R18.8 Other ascites (principal); C25.0 Malignant neoplasm of head of pancreas
CPT/HCPCS: 49083

== ENCOUNTER → 2025-03-18 | Outpatient (CLI) | payer MEDICARE, SELFPAY ==
[2025-03-18 11:50] VITALS: BP 135/94; PULSE 94; RESP 18; TEMP 36.4; O2SAT 97
[2025-03-18] MEDS: Lidocaine 2% (20 ml mdv) 20 ML Vial INFILT (12:00)
[2025-03-18 12:03] VITALS: BP 134/81; PULSE 85; RESP 18; O2SAT 96
[2025-03-18 12:15] VITALS: BP 125/80; PULSE 81; RESP 18; TEMP 36.7; O2SAT 97
[2025-03-18 12:31] LABS: Cytology, Body Fluid / CSF SEE PATHOLOGY REPORT
== END | disposition home or self-care (01) ==
LOC: US 11:42
PROVIDERS: PCP Family Medicine; Referring Provider Internal Medicine Hematology & Oncology; Visit Provider Internal Medicine Hematology & Oncology
DX: R18.8 Other ascites (principal); C25.0 Malignant neoplasm of head of pancreas
CPT/HCPCS: 49083; 88108; 88305; 88313; 88341; 88342

== ENCOUNTER → 2025-03-25 | Outpatient (CLI) | payer MEDICARE, SELFPAY ==
--- NOTE | 2025-03-25 13:22 | US_ITS ---
PROCEDURE: PARACENTESIS WITH US 03/25/2025 REASON FOR EXAM: NEOPLASM OF PANCREAS TECHNIQUE: PARACENTESIS WITH US. The procedure as well as the benefits and possible complications including infection and bleeding were explained to the patient. Informed consent was obtained. The skin overlying the right lower quadrant was prepped and draped in the usual sterile fashion. Following local anesthetic application, a 5 Citizen Of [place] catheter was placed into the peritoneal cavity. 4250 mL of light colored fluid was aspirated. A sample was sent to the laboratory. COMPARISON: March 18, 2025. FINDINGS: Successful right ultrasound-guided paracentesis. US/Paracentesis with US IMPRESSION: Successful right ultrasound-guided paracentesis. The patient tolerated the pro cedure well. Reading Location: [place] [address]
[2025-03-25 13:32] VITALS: BP 136/84; PULSE 78; RESP 16; O2SAT 96
[2025-03-25] MEDS: Lidocaine 2% (20 ml mdv) 20 ML Vial INFILT (13:40)
--- NOTE | 2025-03-25 13:40 | FLU_PTH ---
PATIENT: KRISTIN LARA LOC: [facility]#:[id number] AGE/SX: 75/M ROOM: RE03/25/[address]: Dr. Phong Aj DO : 1950 BED: DIS: 03/25/2025 SPEC #: [id number] RECD: 03/25/25 14:28 STATUS: GARY REBrian #: [id number] HASMUKH: 03/25/25 13:[address]: Phong Aj DEPT: CYTOLOGY RECD BY: Coco Daniel ENTERED: 03/28/25 08:41 SP TYPE: Fluid OTHR DR: Dr. Michelet Trotter MD Tissues: PARACENTESIS FLUID Procedures: Special Stain Group II Surgery Specimen Level IV Cytospin Fluid HEADER OPERATION: Ultrasound guided paracentesis PRE-OP DIAGNOSIS: Ascites, malignant neoplasm of pancreas TISSUE SUBMITTED: A- Paracentesis fluid for cytology DIAGNOSIS CYTOLOGY A. Paracentesis fluid: * Atypical cells, favor reactive mesothelial cells CYTOLOGY STUDY Slides are reviewed. CYTOLOGY GROSS A. Received is 100 ml of jzyrk-aztvli-karmol fluid labeled with the patient's name and and designated per the requisition as "Paracentesis fluid." Submitted for cytology and cell block preparation. 03/28/2025 CPT: 32437,[id number]
[2025-03-25 13:45] VITALS: BP 138/83; PULSE 76; RESP 16; O2SAT 97
[2025-03-25 13:56] VITALS: BP 111/70; PULSE 77; RESP 16; O2SAT 96
== END | disposition home or self-care (01) ==
LOC: US 13:20
PROVIDERS: PCP Family Medicine; Referring Provider Internal Medicine Hematology & Oncology; Visit Provider Internal Medicine Hematology & Oncology
DX: R18.8 Other ascites (principal); C25.0 Malignant neoplasm of head of pancreas
CPT/HCPCS: 49083; 88108; 88305; 88313

== ENCOUNTER → 2025-03-31 | Outpatient (CLI) | payer MEDICARE, SELFPAY ==
--- NOTE | 2025-03-31 11:35 | US_ITS ---
PROCEDURE: PARACENTESIS WITH US 03/31/2025 REASON FOR EXAM: NEOPLASM OF PANCREAS TECHNIQUE: PARACENTESIS WITH US The procedure as well as the benefits and possible complications including infection and bleeding were explained to the patient. Informed consent was obtained. The skin overlying the right lower quadrant was prepped and draped in the usual sterile fashion. Following local anesthetic application, a 5 Yi catheter was placed into the peritoneal cavity. 2700 mL of cortney colored fluid was aspirated. The patient tolerated the procedure well. COMPARISON: March 25, 2025. FINDINGS: Successful ultrasound-guided paracentesis with withdrawal of 2700 mL of cortney colored fluid. US/Paracentesis with US IMPRESSION: Successful ultrasound-guided paracentesis as described. The patient tolerated the procedure well. No immediate complication noted. Reading Location: [place] [address]
--- NOTE | 2025-03-31 11:35 | US_ITS ---
PROCEDURE: PARACENTESIS WITH US 03/31/2025 REASON FOR EXAM: NEOPLASM OF PANCREAS TECHNIQUE: PARACENTESIS WITH US The procedure as well as the benefits and possible complications including infection and bleeding were explained to the patient. Informed consent was obtained. The skin overlying the right lower quadrant was prepped and draped in the usual sterile fashion. Following local anesthetic application, a 5 Greek catheter was placed into the peritoneal cavity. 2700 mL of cortney colored fluid was aspirated. The patient tolerated the procedure well. COMPARISON: March 25, 2025. FINDINGS: Successful ultrasound-guided paracentesis with withdrawal of 2700 mL of cortney colored fluid. US/Paracentesis with US IMPRESSION: Successful ultrasound-guided paracentesis as described. The patient tolerated the procedure well. No immediate complication noted. Reading Location: [place] [address]
[2025-03-31 12:04] VITALS: BP 126/80; PULSE 74; RESP 15; TEMP 35.9; O2SAT 98
[2025-03-31] MEDS: Lidocaine 2% (20 ml mdv) 20 ML Vial INFILT (12:05)
[2025-03-31 12:15] VITALS: BP 108/70; PULSE 67; RESP 15; O2SAT 96
[2025-03-31 12:18] VITALS: BP 104/68; PULSE 71; RESP 15; O2SAT 97
== END | disposition home or self-care (01) ==
PROVIDERS: PCP Family Medicine; Referring Provider Internal Medicine Hematology & Oncology; Visit Provider Internal Medicine Hematology & Oncology
DX: R18.8 Other ascites (principal); C25.0 Malignant neoplasm of head of pancreas
CPT/HCPCS: 49083

== ENCOUNTER → 2025-04-11 | Outpatient (CLI) | payer MEDICARE, SELFPAY ==
--- NOTE | 2025-04-11 11:18 | US_ITS ---
PROCEDURE: US/Paracentesis with US
[2025-04-11 11:45] VITALS: BP 166/100; PULSE 82; RESP 16; O2SAT 97
[2025-04-11] MEDS: Lidocaine 2% (20 ml mdv) 20 ML Vial INFILT (11:47)
[2025-04-11 12:00] VITALS: BP 162/90; PULSE 78; RESP 16; O2SAT 96
[2025-04-11 12:08] VITALS: BP 155/89; PULSE 79; RESP 16; O2SAT 97
[2025-04-11 12:54] VITALS: BP 154/95; PULSE 82; RESP 16; TEMP 36.2; O2SAT 98
[2025-04-11] MEDS: Albumin Human 25% (100 mL) 25 GM/100 ML BAG IV (13:10)
[2025-04-11 14:48] VITALS: BP 136/90; PULSE 90; RESP 16; TEMP 36.2; O2SAT 100
[2025-04-11] MEDS: 0.9% NaCl Peripheral Flush Adult IV (14:49)
== END | disposition home or self-care (01) ==
PROVIDERS: PCP Family Medicine; Referring Provider Internal Medicine Hematology & Oncology; Visit Provider Internal Medicine Hematology & Oncology
DX: R18.8 Other ascites (principal); C25.0 Malignant neoplasm of head of pancreas
CPT/HCPCS: 49083; 96365; P9047